=== PATIENT | male | born 1950 | race Caucasian/White ===

== ENCOUNTER 2017-02-27 09:51 | Day surgery (SDC) | payer OTHER ==
[~2017-02-27] VITALS: Ht 167.6 cm; Wt 73.3 kg
[2017-02-27] VITALS (19 sets, daily range): BP systolic 82–105; BP diastolic 37–55; PULSE 62–70; RESP 19–26; Ht 167.6 cm; Wt 73.3 kg
[2017-02-27] MEDS ORDERED: ACET-141 PO (10:51)
[2017-02-27] MEDS ORDERED: MUCO4 NEB (10:53)
[2017-02-27] MEDS ORDERED: APIX2.5T PO (10:54)
[2017-02-27] MEDS ORDERED: OXYC5CAP17 PO (10:55)
[2017-02-27] MEDS ORDERED: PRED5TAB PO (10:55)
[2017-02-27] MEDS ORDERED: NIFE30TA60 PO (10:56)
[2017-02-27] MEDS ORDERED: METO2.5T12 PO (10:57)
[2017-02-27] MEDS ORDERED: MELA5TAB4 PO (10:57)
[2017-02-27] MEDS ORDERED: LINE600T PO (10:58)
[2017-02-27] MEDS ORDERED: LIDO35.415 TP (10:59)
[2017-02-27] MEDS ORDERED: LIDO700A10 TP (11:02)
[2017-02-27] MEDS ORDERED: IPRA3AMP INHALATION (11:04)
[2017-02-27] MEDS ORDERED: morphine 2 MG INJ IV PRN (15:00)
[2017-02-27] MEDS ORDERED: ACETAMINOPHEN 325 MG TAB PO PRN (15:00)
--- NOTE | 2017-02-27 15:01 | OPR ---
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 Anesthesia Type: other Estimated Blood Loss: minimal Transfusion none Specimen SEE below Grafts/Implants none Complications none Procedure Description Procedure performed: VVI Permanent pacemaker placement using a [employer] MRI compatible device Fluoroscopy and supervision Intracardiac electrocardiogram Indication: symptomatic Sick sinus syndrome, Afib with very slow ventricular response with HR as low as < 30 Anesthesia: Per anesthesiologist Healthcare Translator: Roland Rosas MD Procedure in detail: Written informed consent was obtained after risks benefits and alternatives discussed with the patient and family in detail. Risks including but not limited to risk of infection, bleeding complications, anesthesia related complications, ND, CVA, perforation, pneumothorax hemothorax, etc discussed with pt in detail. Patient was brought into into the [employer] and placed in supine position. sedation was given. Left chest area was prepped and draped in regular sterile fashion. Left subclavian venogram was performed that showed patent subclavian vein and a small cephalic vein. AC groove area was anesthetized using 1% lidocaine with epi. A 3 cm incision was made in the AC groove area. Blunt dissection was carried out. Cephalic vein could not be seen. At this time under direct fluoroscopy left subclavian vein was cannulated using a micropuncture needle and venous flow was obtained. Wire was advanced. RV lead was advanced under direct fluoroscopy and placed in the right ventricular low septum . Once a good position was found, threshold was checked which showed excellent threshold. It was screwed into place and threshold were checked again which showed good injury pattern and no diaphragmatic stimulation at 10 V an excellent thresholds. Then the sheath was peeled away. lead was tied down using 0 Ethibond suture. Pocket was irrigated with antibiotic solution. The lead was checked again which showed good thresholds. Then leads were connected into the device. Device was placed into the pocket and sutured using 0 Ethibond suture. Wound was closed with 1 layer of 2.0 Vicryl and 2 layers of 3.0 Vicryl. Steri- Strip was applied and pressure dressing was applied. Patient tolerated procedure well with no complication and was transferred to the recovery room in stable condition. Immediate complication: none Please see physical chart for details regarding pacemaker information and thresholds. Conclusions: Successful implantation of single-chamber permanent pacemaker ROLAND ROSAS MD Feb 27, 2017 15:01
[2017-02-27] MEDS ORDERED: hydrALAzine 20 MG INJ IV PRN (16:00)
[2017-02-27] MEDS ORDERED: EPHEDrine SULFATE 50 MG/5 ML SYG IV PRN (16:00)
[2017-02-27] MEDS ORDERED: FENTAnyl 50 MCG/ML VIAL IV PRN (16:00)
[2017-02-27] MEDS ORDERED: MEPERIDINE 25 MG INJ IV PRN (16:00)
[2017-02-27] MEDS ORDERED: PROCHLORPERAZINE 10 MG INJ IV PRN (16:00)
[2017-02-27] MEDS ORDERED: OXYCODONE/ACETAMINOPHEN (5/325) TAB PO PRN (16:00)
[2017-02-27] MEDS ORDERED: DIPHENHYDRAMINE 50 MG INJ IV PRN (16:00)
[2017-02-27] MEDS ORDERED: ONDANSETRON 4 MG INJ IV PRN (16:00)
[2017-02-27] MEDS ORDERED: LABETALOL HCL 20MG INJ IV PRN (16:00)
--- NOTE | 2017-02-27 16:29 | RADRPT ---
PROCEDURE: XR Chest. CLINICAL INDICATION: Shortness of breath. Central line placement TECHNIQUE: A single portable view of the chest was obtained. COMPARISON: 02/27/2017 from 07:36 a.m. FINDINGS: A right-sided hemodialysis catheter is seen with the tip in the proximal right atrium. The aorta is tortuous and atherosclerotic. The cardiomediastinal silhouette is otherwise enlarged and is stable. Diffuse pulmonary vascular congestion is seen with likely underlying pulmonary edema and is stable . Bilateral pleural effusions are again noted and are unchanged. The soft tissues and osseous struct ures demonstrate benign age related senescent changes. IMPRESSION: 1. Right sided hemodialysis catheter with the tip in the proximal right atrium. 2. Radiographic findings of congestive heart failure again seen which is stable. RPTAT: HPNM Physician Vandana Date Time Electronically viewed and signed by Physician Vandana on 02/27/2017 16:28 /
[2017-02-27] MEDS ORDERED: CEFAZOLIN 1 GM/50 ML (PMX) 50 ML IVPB SCH (22:00)
--- NOTE | 2017-03-01 09:20 | RADRPT ---
Vent Rate: 69 bpm RR Interval: 0 msec TN Interval: 0 msec QRS Duration: 102 msec QT Interval: 432 msec QTC Interval: 462 msec P-R-T [place]: 0 - -13 - -[address] abnormality, possible digitalis effect Abnormal ECG Electronically Signed By: Dick Gaffney [phone]
== END 2017-02-27 16:36 | disposition short-term general hospital (02) ==
LOC: CCL 09:51 → SDS 09:52 → EDSTATUS 13:30 → CCL 16:36
PROVIDERS: ATTEND Internal Medicine Interventional Cardiology
DX: I49.5 Sick sinus syndrome (principal); I48.91 Unspecified atrial fibrillation; Z79.01 Long term (current) use of anticoagulants
CPT/HCPCS: 33207; 71010; 93005; J2250; J2405; J3010; J7040; Q9967

== ENCOUNTER 2017-03-01 13:00 | Inpatient (IN) | payer MEDICARE, BC ==
[~2017-03-01] VITALS: Ht 170.2 cm; Wt 80.2 kg
[2017-03-01] VITALS (47 sets, daily range): BP systolic 77–164; BP diastolic 47–112; PULSE 60–93; RESP 11–28; Ht 170.2 cm; Wt 80.2 kg
[~2017-03-01 13:00] MED LIST: ACET-141 PO; APIX2.5T PO; ETOMIDATE 20 MG INJ ONE; IPRA3AMP INHALATION; LIDO35.415 TP; LIDO700A10 TP; LINE600T PO; MELA5TAB4 PO; METO2.5T12 PO; MUCO4 NEB; NIFE30TA60 PO; OXYC5CAP17 PO; PRED5TAB PO; ROCURONIUM 50 MG INJ ONE
[2017-03-01] MEDS ORDERED: ALBUTEROL/IPRATROPIUM (NEB) 3 ML AMP NEB PRN (13:30)
--- NOTE | 2017-03-01 13:53 | CONS ---
Date/Time of Note Date/Time of Note DATE: 03/01/17 TIME: 13:46 Assessment/Plan Assessment/Plan Additional Assessment/Plan Chest x-ray was reviewed from today which is showing bilateral pleural effusions with possibly bilateral lower lobe pneumonia. Chemistry panel showing hyperkalemia with potassium level of 6. Assessment and recommendations; 1. Patient transferred from [facility] for hypotension with interval improvement. 2. Possibly bilateral pneumonia versus pleural effusions. 3. Chronic renal failure on hemodialysis. 4. Cardiac arrhythmia, status post recent pacemaker placement. 5. Anemia. 6. Mild hyperkalemia. Continue current supportive care. Patient will undergo dialysis shortly. Add cefepime 1 g every 12. Continue Zyvox. Obtain CT of the chest without contrast. Consultation Date/Type/Reason Admit Date/Time Mar 01, 2017 at 13:35 Date of Consultation: Mar 01, 2017 Type of Consultation: Pulmonary/critical care Reason for Consultation Pulmonary consultation requested for evaluation of hypotension. History of presenting illness; patient is a 66-year-old white male who was at [facility] and then developed hypotension which required transfer to ICU at [facility]. By the time I saw the patient in ICU the patient is on 30% Ventimask and is completely awake and alert. Hypotension has improved in the interim with blood pressure readings of 92/68 currently. Patient does complain of mild shortness of breath but denies any abdominal pain , nausea or vomiting. Also denies any fever or chills. Past medical history; 1. Patient with history of renal failure on hemodialysis. 2. History of AV fistula. 3. Anemia. 4. History of bilateral knee replacement. 5. History of ankle surgery. 6. History of recent pacemaker implantation. Medications; reviewed. Allergies; erythromycin. Social history; patient has a long-standing history of smoking. Occupational history noncontributory patient is on disability. Family history; noncontributory. Review of systems; denies any headache, complains of mild shortness of breath. Denies any chest pain or wheezing. Any cough or sputum production. Any abdominal pain, nausea vomiting. Denies any orthopnea. Complains of chronic pain. Has lost weight recently. General exam; elderly male, awake and alert. Currently in no distress. Exam/Review of Systems Exam HEENT exam; supple neck, positive JVD. No lymphadenopathy. Midline trachea. No thyromegaly. Patient has a multiple carious teeth. Pupils are small bilaterally. Pharynx is clear. Chest exam; diminished breath sounds throughout. S1-S2 audible, no murmurs. Irregular rhythm. Pacemaker in left chest wall. Abdomen exam; soft, nontender. No organomegaly. No scars, bowel sounds audible. Extremity exam; no edema. Patient has a multiple scars involving lower extremities. And has multiple ecchymosis involving all 4 extremities. No overt bleeding seen. 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 Medications Medications Current Medications Acetaminophen (Tylenol Tab) 500 mg Q6 PRN PO PAIN AND OR ELEVATED TEMP; Start 03/01/17 at 13:30; Status UNV Acetylcysteine (Mucomyst) 2 ml BID NEB ; Start 03/01/17 at 21:00; Status UNV Albuterol/ Ipratropium (Duoneb) 3 ml Q4 PRN NEB WHEEZING AND SOB; Start at 13:30; Status UNV Lidocaine (Lidocaine 5% Oint) 1 applic BID TOP ; Start 03/01/17 at 21:00; Status UNV Lidocaine (Lidoderm) 1 patch DAILY TD ; Start 03/02/17 at 09:00; Status UNV Linezolid (Zyvox) 600 mg BID PO ; Start 03/01/17 at 21:00; Status UNV Metolazone (Zaroxolyn) 2.5 mg DAILY PO ; Start 03/02/17 at 09:00; Status UNV Oxycodone HCl (Roxicodone) 2.5 mg Q6 PRN PO PAIN; Start 03/01/17 at 13:30; Status UNV Prednisone (Prednisone) 5 mg DAILY PO ; Start 03/02/17 at 09:00; Status UNV PAOLA RUIZ Mar 01, 2017 13:53
[2017-03-01] MEDS ORDERED: CEFEPIME 1GM/50 ML (PMX) 50 ML IVPB SCH (14:00)
[2017-03-01] MEDS ORDERED: VANCOMYCIN IV PER PHARMACY XX SCH ×2 (14:00→14:30)
[2017-03-01] MEDS ORDERED: ALBUMIN HUMAN 25% 100 ML ONE (14:21)
[2017-03-01] MEDS ORDERED: NORepinephrine 8MG/250 ML (PMX 250 ML IV SCH (14:30)
[2017-03-01] MEDS ORDERED: NORepinephrine 8MG/250 ML (PMX 250 ML ONE (14:33)
[2017-03-01] MEDS ORDERED: SENNA/DOCUSATE NA (8.6MG/50MG) TAB PO PRN (15:00)
[2017-03-01] MEDS ORDERED: ALBUMIN HUMAN 25% 100 ML IV ONE (15:00)
[2017-03-01] MEDS ORDERED: BISA-57 PO (15:08)
[2017-03-01] MEDS ORDERED: SENN-59 PO (15:08)
[2017-03-01] MEDS ORDERED: DOXA2TAB61 PO (15:08)
[2017-03-01] MEDS ORDERED: THIA100T56 PO (15:08)
[2017-03-01] MEDS ORDERED: CEFE1PIG IVPB (15:08)
[2017-03-01] MEDS ORDERED: FLUT9.9S NASAL (15:08)
[2017-03-01] MEDS ORDERED: MINE3.5O31 RIGHT EYE (15:08)
[2017-03-01] MEDS ORDERED: CYCL25CA5 PO (15:08)
[2017-03-01] MEDS ORDERED: MIDO5TAB19 PO (15:08)
[2017-03-01] MEDS ORDERED: DEXT15DR4 OP (15:08)
[2017-03-01] MEDS ORDERED: VANCOMYCIN 1.5 GM in SOD CHLORIDE 0.9% 250 ML IVPB SCH (15:30)
[2017-03-01] MEDS: MEROPENEM 500MG/50 ML (PMX) 50 ML IVPB SCH (17:04)
[2017-03-01] MEDS: FLUCONAZOLE 100 MG/NS (PMX) 50 ML IVPB SCH (18:00)
--- NOTE | 2017-03-01 18:48 | CONS ---
DATE OF ADMISSION: 03/01/2017 DATE OF CONSULTATION: 03/01/2017 TYPE OF CONSULTATION: Infectious Disease. REASON FOR CONSULTATION: Antibiotic management. HISTORY OF PRESENT ILLNESS: Thomas Kern is a 66-year-old white male transferred from [facility] where he developed hypotension which required transfer to the ICU. The patient is currently on BiPAP mask. He complains of shortness of breath but denies any abdominal pain, nausea or vomitin g. A chest x-ray showed bilateral pleural effusions with possible bilateral lower lobe pneumonia. Chemistry panel showing hyperkalemia with potassium of 6. Patient transferred from [place], possible bilateral pneumonia versus pleural effusion. He has chronic renal failure on hemodialysis and is r eceiving dialysis right now. Cardiac arrhythmia, status post recent pacemaker placement, anemia and mild hyperkalemia. Continue current supportive care. He is on cefepime and Zyvox. PAST MEDICAL HISTORY: Operations as outlined. PAST SURGICAL HISTORY: He has a history of AV fistula, history of bilateral knee replacement, histo ry of ankle surgery and history of recent pacemaker implantation. FAMILY HISTORY: Noncontributory. SOCIAL HISTORY: He is a longstanding smoker. ALLERGIES: NONE TO PENICILLIN, SULFA OR FOODS. MEDICATIONS: Per chart. REVIEW OF SYSTEMS: Noncontributory. PHYSICAL EXAMINATION: GENERAL: The patient is a well-developed, well-nourished elderly-appearing male who is awake, respo nsive, in no acute distress. VITAL SIGNS: Stable. He is afebrile. SKIN: Without generalized rash. HEENT: Within normal limits. He has a BiPAP in place so it is difficult to evaluate. NECK: Supple. LYMPH NODES: None palpable. CHEST: Decreased breath sounds at the bases. Pacemaker in left chest wall. HEART: Without murmur or gallop. ABDOMEN: Soft, nontender, without organosplenomegaly or masses. EXTREMITIES: Without cyanosis, clubbing, or edema. Multiple scars in the lower extremities. RECTAL AND GENITAL: Deferred. NEUROLOGIC: No focal neurological abnormalities. IMPRESSION AND PLAN: 1. The patient currently is on linezolid or Zyvox and cefepime. We will continue him on this regim en. He is also on fluconazole and now his antibiotics have been changed to vancomycin, meropenem an d fluconazole for broader spectrum coverage. 2. Blood cultures have not been done but he is afebrile at this point. I will dictate my findings to Dr. Kendrick and to the hospitalist. Dictated By: VIC COX MD, JD/BECKIE Conf#: [id number] DID#: [id number]
[2017-03-01] MEDS ORDERED: MIDAZOLAM (DRIP) 50 mg/50 mL 50 ML IV SCH (19:30)
--- NOTE | 2017-03-01 19:34 | QN ---
Documentation Comment Endotracheal Intubation by me: Pre assessment performed. Pre-oxygenation performed with 100% oxygen RSI: Performed w/o complication or hypoxic events. Medications as ordered. Blade: MAC 4 Glidescope ET Tube: 7.5 cm Depth: 22 cm at the lip Intubation confirmed by colorimetric CO2, equal breath sounds, quiet over the stomach. Chest x-ray pending. AMANDA CRUZ MD Mar 01, 2017 19:33
[2017-03-01] MEDS: PROPOFOL 100 ML IV SCH (19:40)
[2017-03-01] MEDS: ACETYLCYSTEINE 20% 4 ML VIAL NEB SCH (20:00)
[2017-03-01] MEDS: DOXAZOSIN 2 MG TAB PO SCH (21:00)
[2017-03-01] MEDS: FLUTICASONE 0.05% 16 GM NAS SPRAY NASAL SCH (21:00)
[2017-03-01] MEDS ORDERED: ZYVOX 600 MG TAB PO SCH (21:00)
[2017-03-01] MEDS ORDERED: APIXABAN 5 MG TABLET PO SCH (21:00)
[2017-03-01] MEDS ORDERED: NON-FORMULARY/PATIENT OWN MED (Melatonin 5 MG) PO SCH (21:00)
[2017-03-01] MEDS: LIDOCAINE 5% 35 GM OINT TOP SCH (21:00)
[2017-03-01] MEDS: CYCLOSPORINE 25 MG CAP PO SCH (21:00)
--- NOTE | 2017-03-01 21:00 | RADRPT ---
AMENDMENT: 03/01/2017 9:26:12 PM Rosita Randall M.D Please note that although the endotracheal tube appears to be 2 cm from the magdiel on chest x-ray, i t is situated at the magdiel on chest CT. Recommend withdrawing the endotracheal tube 3 cm into the c entral trachea and repeating the chest x-ray. This was discussed with the patient's nurse at 09:05 PM. Please see chest CT report. PROCEDURE: Portable chest x-ray. CLINICAL INDICATION: 66-year of age, male. Post intubation. TECHNIQUE: Portable AP view of the chest. COMPARISON: Chest x-ray from earlier the same day at 08:34 a.m. FINDINGS: Endotracheal tube has been placed and tip is 2.2 cm from magdiel. Right internal jugular double lumen hemodialysis catheter is positioned over inferior SVC. Left subc lavian pacemaker with electrode over right ventricle. These lines are unchanged. Atherosclerotic calcification thoracic aorta. Cardiac silhouette is obscured by lung disease. Decreased lung volumes with vascular crowding. Bilateral perihilar infiltrates have improved. There is residual interstitial pulmonary edema with improved air space disease. There is residual consolid ation in left greater than right lower lobes that may represent atelectasis, aspiration or infection . Suspected left pleural effusion. Right costophrenic sulcus is excluded from imaging field limiting e valuation for right pneumothorax and a small right pleural effusion. No acute bony abnormality. IMPRESSION: Endotracheal tube in satisfactory position 2.2 cm from magdiel. Bilateral perihilar infiltrates are improved from chest x-ray performed earlier the same day in keep ing with improving pulmonary edema. There is residual interstitial pulmonary edema with mild residua l air space changes. Bilateral left greater than right lower lobe lung consolidation may represent a telectasis , aspiration or infection. Pleural effusions are likely improved. Suspected residual small left pleural effusion. RPTAT: HCTS Physician Marvin Date Time Electronically viewed and signed by Physician Marvin on 03/01/2017 21:27 /
--- NOTE | 2017-03-01 21:26 | RADRPT ---
PROCEDURE: CT CHEST WITHOUT CONTRAST CLINICAL INDICATION: 66 years of age, male. Pneumonia. COMPARISON: Chest x-ray from earlier the same day TECHNIQUE: CT of the chest was performed without IV contrast. Coronal and sagittal reformatted image s were obtained from the axial source images. Images were reviewed on a high-resolution PACS worksta tion. Dose information: The estimated radiation dose (CTDIvol mGy) for each series in this exam is 16. The estimated cumulative dose (DLP mGy-cm) is 634. One or more of the following dose reduction techniques were used: - Automated exposure control. - Adjustment of the mA and/or kV according to patient size. - Use of iterative reconstruction technique. FINDINGS: In the absence of intravenous contrast, the study constitutes a limited assessment of the solid orga ns and vessels. CHEST: Medical devices: Endotracheal tube is situated at the magdiel and should be withdrawn 2-3 cm. Enteric tube is situated in the distal esophagus. Recommend advancement further into the stomach 10-15 cm. Right internal jugular hemodialysis catheter with tip in inferior SVC. Left subclavian pacemaker wit h electrode over right ventricle. Thyroid: Normal. Lymph nodes: No supraclavicular, axillary, mediastinal, or hilar lymphadenopathy. Vasculature: Atherosclerotic calcification thoracic aorta. Ascending aortic aneurysm measuring 4.4 c m. Dilated main pulmonary artery measuring 3.6 cm in keeping with pulmonary artery hypertension. Heart: Four-chamber cardiomegaly. Four-vessel coronary artery calcification. No pericardial effusion . Other mediastinal structures: Normal noncontrast appearance. Lung parenchyma and pleura: There is dense consolidation in the left greater than right lower lobes also involving the posterior left upper lobe. There is nodularity with centrilobular branching patte rns in the posterior right upper lobe and superior right lower lobe. The appearance is concerning fo r multifocal infection or aspiration. There is likely superimposed aspiration in the lower lobes. Mi ld diffuse ground-glass opacity may be due to residual interstitial pulmonary edema. Negative for se ptal lines. Small left pleural effusion. Negative for right pleural effusion. Negative for pneumotho rax. Airways: Normal noncontrast appearance. Chest wall: Pulse generator left anterior chest wall attached to the pacemaker has likely recently b een placed with adjacent soft tissue gas. Upper abdomen: Mild hepatosplenomegaly. The burns paiute kidneys are severely atrophic with scattered nono bstructing calculi on the left and a sub centimeter cyst on the right. Small volume ascites in the u pper abdomen. Musculoskeletal: Multilevel advanced spondylosis in the thoracolumbar spine with a curvature of the lower thoracic spine and upper lumbar spine convex right and left spondylolisthesis at T11-12. There is grade 1 anterolisthesis at C7-T1 due to advanced degenerative disc disease and facet joint arthr itis. There is grade 1 anterolisthesis at T7-8 with advanced disc disease. There is a subacute fract ure of the manubrium. There are subacute fractures of bilateral ribs including the posterior right f irst rib, the lateral and anterior right second rib, and the anterior right third rib as well as the posterior left first rib and anterior left second and third ribs.. 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 IMPRESSION: 1. Endotracheal tube is situated at the magdiel. Recommend withdrawing the tube 3 cm into the trache a. 2. Enteric tube is situated in the inferior esophagus. Recommend advancement 10-15 cm into the stoma ch. 3. Bilateral left greater than right lung consolidation in bilateral lower lobes and posterior left upper lobe with patchy nodular opacity in the posterior right upper lung zone is in keeping with mul tifocal infection as suspected clinically. Aspiration could appear similar. 4. Cardiomegaly. Ascending aortic aneurysm measuring 4.4 cm. Enlarged main pulmonary artery in keepi ng with pulmonary hypertension. 5. Small left pleural effusion and small-volume ascites in the upper abdomen. 6. Atrophic burns paiute kidneys in keeping with burns paiute end stage renal disease. 7. Advanced disc disease and facet joint arthritis in the spine with multilevel spondylolisthesis an d a scoliosis as described. There are subacute fractures of the manubrium and bilateral ribs. 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 Findings with regards to endotracheal tube and enteric tube were discussed with Benigno Malhotra RN by Dr. Rosita Randall on March 01, 2017 at 09:05 p.m. He will notify the patient's provider. RPTAT: HCTS Clifton Randall Physician Date Time Electronically viewed and signed by Clifton Randall Physician on 03/01/2017 21:25 CS/
--- NOTE | 2017-03-01 22:58 | RADRPT ---
PROCEDURE: Portable chest x-ray. CLINICAL INDICATION: Endotracheal tube repositioning. TECHNIQUE: Portable AP view of the chest. COMPARISON: 05/18/2009. FINDINGS: An endotracheal tube terminates 2.7 cm above the magdiel. A nasogastric tube terminates in the stomac h. A right central venous catheter terminates in the SVC. There are low lung volumes. Prominent inte rstitial lung markings are noted. The cardiac silhouette is enlarged. There is a left chest cardiac pacemaker. There may be small bilateral pleural effusions.. There is no pneumothorax. IMPRESSION: 1. Endotracheal tube tip 2.7 cm above the magdiel. 2. Nasogastric tube tip in the stomach. 3. Right central venous catheter tip in the SVC. 4. Mild interstitial lung markings, possibly representing interstitial edema, a viral chest infecti on, and/or compressive changes related to low lung volumes. 5. Enlarged cardiac silhouette and a cardiac pacemaker. 6. Possible small bilateral pleural effusions. RPTAT: HTAR .Rudolph Clinton MD, Date Time Electronically viewed and signed by .Rudolph Clinton MD, on 03/01/2017 22:57 .R/
[2017-03-02] VITALS (99 sets, daily range): BP systolic 78–130; BP diastolic 52–80; PULSE 60–160; RESP 7–64
[2017-03-02] MEDS: PROPOFOL 100 ML IV SCH ×4 (00:11→18:40)
[2017-03-02] MEDS: MEROPENEM 500MG/50 ML (PMX) 50 ML IVPB SCH ×3 (01:27→20:48)
--- NOTE | 2017-03-02 08:22 | RADRPT ---
PROCEDURE: XR Chest. CLINICAL INDICATION: Respiratory failure. Congestive heart failure. TECHNIQUE: Single frontal view of the chest. COMPARISON: 03/01/2017 and additional priors FINDINGS: Endotracheal tube tip well positioned over the mid tracheal shadow. Enteric tube tip passes below th e diaphragm and below the field of view. Right internal dialysis catheter with the tip over the dis vivi superior vena cava. Left-sided single lead pacemaker. Stable enlarged cardiomediastinal silhoue tte. Interval worsening of diffuse bilateral air space opacities. Small bilateral pleural effusions. No evidence of pneumothorax. Chronic deformity with degenerative changes of the shoulders. IMPRESSION: 1. Stable position of line and tubes. 2. Interval worsening of diffuse bilateral air space opacities representing pulmonary edema or infec tion. 3. Bilateral small pleural effusions. RPTAT:AAJJ Physician Mary Date Time Electronically viewed and signed by Physician Mary on 03/02/2017 08:22 /
[2017-03-02] MEDS ORDERED: DEXTROSE 50% 50 ML SYRINGE ONE (08:25)
[2017-03-02] MEDS: ACETYLCYSTEINE 20% 4 ML VIAL NEB SCH ×2 (08:29→19:44)
[2017-03-02] MEDS ORDERED: NIFEdipine (XL) 30 MG TAB PO SCH (09:00)
[2017-03-02] MEDS ORDERED: CEFEPIME 1 GM/50 ML SCH (09:00)
[2017-03-02] MEDS: THIAMINE 100 MG TAB PO SCH (09:04)
[2017-03-02] MEDS: METOLAZONE 2.5 MG TAB PO SCH (09:04)
[2017-03-02] MEDS: MIDODRINE 5 MG TAB PO SCH (09:04)
[2017-03-02] MEDS: LIDOCAINE 5% 35 GM OINT TOP SCH ×2 (09:05→20:49)
[2017-03-02] MEDS: FLUTICASONE 0.05% 16 GM NAS SPRAY NASAL SCH ×2 (09:05→20:48)
[2017-03-02] MEDS: predniSONE 5 MG TAB PO SCH (09:05)
[2017-03-02] MEDS: OCULAR LUBRICANT 3.5 GM OPH OINT RIGHT EYE PRN ×2 (09:05→20:49)
[2017-03-02] MEDS: CYCLOSPORINE 25 MG CAP PO SCH ×2 (09:06→20:49)
[2017-03-02] MEDS: LIDOCAINE 5% PATCH TD SCH (09:07)
--- NOTE | 2017-03-02 11:28 | CONS ---
Date/Time of Note Date/Time of Note DATE: 03/02/17 TIME: 11:22 Consult Date/Type/Reason Admit Date/Time Mar 01, 2017 at 13:35 Initial Consult Date 03/01/17 Type of Consultation: Pulmonary/critical care Subjective No significant changes. Patient remains somnolent on mechanical ventilation. Continues vasopressor support. Objective Vital Signs Date Time Temp Pulse Resp B/P Pulse Ox O2 Delivery O2 Flow Rate FiO2 03/02/17 09:10 65 20 100 40 03/02/17 07:45 100.1 96/53 03/01/17 20:00 Mechanical Ventilator Intake and Output 03/01/17 03/01/17 03/02/17 15:00 23:00 07:00 Intake Total 18.75 ml 806.25 ml 229.25 ml Output Total 2300 ml 45 ml Balance 18.75 ml -1493.75 ml 184.25 ml Exam PHYSICAL EXAMINATION GENERAL: Elderly gentleman, intubated on mechanical ventilation, opens eyes and appears somewhat agitated. Orally intubated. VITAL SIGNS: see below. HEENT: Pupils equal, round, and reactive to light. CARDIAC: S1, S2, no added sounds or murmurs. CHEST: Diminished air entry bilaterally. ABDOMEN: Mildly distended. Bowel sounds present no guarding or rebound EXTREMITIES: No cyanosis, clubbing edema +1 NEUROLOGIC: Generalized weakness Results/Medications Result Diagram: 03/02/17 0425 03/02/17 0425 Results 24 hrs Laboratory Tests Test 03/01/17 13:51 03/01/17 14:30 03/01/17 20:30 03/01/17 22:30 Blood Gas Specimen Source Blood arterial Blood arterial Blood arterial Arterial Blood Date Drawn 03/01/2017 1:40:35 PM 03/01/2017 6:30:18 PM 03/01/2017 10:00:00 PM Arterial Blood pH (Temp corrected) 7.163 *L 7.153 *L 7.424 Arterial Blood pCO2 (Temp correct) 74.6 H 93.9 *H 42.2 Arterial Blood pO2 (Temp corrected) 63.9 L 92.3 354.2 H Arterial Blood HCO3 26.2 H 32.2 H 27.0 H Arterial Blood Base Excess -3.6 L 1.0 2.3 Arterial Blood Oxygen Saturation 89.8 L 96.1 99.7 H Sly Test ACCEPTAB ACCEPTAB ACCEPTAB Arterial Blood Gas Puncture Site Left Radial Right Radial Right Radial Arterial Blood Carboxyhemoglobin 1.1 1.0 0 Arterial Blood Methemoglobin 0.2 0.3 0.2 Blood Gas A-a O2 Differential 98.9 H 84.9 H 316.6 H Oxyhemoglobin Percent 88.6 L 94.9 99.5 H Total Hemoglobin 11.5 L 12.0 10.8 L Blood Gas Temperature 37.0 37.0 37.0 Blood Gas Modality MASK - VENTI MASK - BIPAP VENT - AC FiO2 35.0 40.0 100.0 Blood Gas Critical Value Read Back Milind MARCH RN SHAMIKA ALLEN Blood Gas Notified Whom MAHAMED STEPHENS MA Blood Gas Notified Time 03/01/2017 1:57:11 PM 03/01/2017 10:28:25 PM 03/01/2017 10:25:33 PM Blood Gas Respiration Rate 18.0 20.0 Blood Gas Actual Respiration Rate 28 20 Blood Gas Pressure Support 7 Blood Gas IPAP/EPAP Ratio 05/01 Blood Gas Tidal Volume 500.0 Blood Gas Low PEEP Setting 5.0 Urine Color BRONSON Urine Clarity CLOUDY A Urine pH 5.0 Urine Specific [place] 1.018 Urine Ketones NEGATIVE Urine Nitrite NEGATIVE Urine Bilirubin NEGATIVE Urine Urobilinogen NEGATIVE Urine Leukocyte Esterase 3+ H Urine Microscopic RBC 25 H Urine Microscopic WBC > 182 H Urine Amorphous Crystals FEW A Urine Bacteria FEW A Urine Hemoglobin 2+ H Urine Random Creatinine 65.43 Urine Random Sodium 89 Urine Glucose NEGATIVE Urine Total Protein Test 03/02/17 04:25 03/02/17 08:27 White Blood Count 10.2 # Red Blood Count 3.32 L Hemoglobin 9.3 L Hematocrit 31.5 L Mean Corpuscular Volume 94.9 Mean Corpuscular Hemoglobin 28.0 L Mean Corpuscular Hemoglobin Concent 29.5 L Red Cell Distribution Width 16.9 H Platelet Count 105 L Mean Platelet Volume 11.0 H Neutrophils % 70.2 Lymphocytes % 15.3 Monocytes % 13.1 H Eosinophils % 0.4 Basophils % 0.2 Nucleated Red Blood Cells % 0.3 H Neutrophils # 7.2 Lymphocytes # 1.6 Monocytes # 1.3 H Eosinophils # 0.0 Basophils # 0.0 Nucleated Red Blood Cells # 0.0 Sodium Level 135 Potassium Level 3.9 # Chloride Level 98 Carbon Dioxide Level 28 Anion Gap 13 Blood Urea Nitrogen 44 #H Creatinine 2.13 #H Glucose Level 63 #L Calcium Level 8.4 Phosphorus Level 3.7 # Magnesium Level 1.9 Total Bilirubin 0.1 L Direct Bilirubin 0.00 Indirect Bilirubin 0.1 Aspartate Amino Transf (AST/SGOT) 46 Alanine Aminotransferase (ALT/SGPT) 24 Alkaline Phosphatase 235 H Total Protein 6.7 Albumin 3.2 L Bedside Glucose 165 Medications Current Medications Acetaminophen (Tylenol Tab) 500 mg Q6H PRN PO PAIN AND OR ELEVATED TEMP; Start 03/01/17 at 13:30 Lidocaine (Lidocaine 5% Oint) 1 applic BID TOP Last administered on 03/02/17 09:05; Admin Dose 1 APPLIC; Start 03/01/17 at 21:00 Lidocaine (Lidoderm) 1 patch DAILY TD Last administered on 03/02/17 09:07; Admin Dose 1 PATCH; Start 03/02/17 at 09:00 Metolazone (Zaroxolyn) 2.5 mg DAILY PO Last administered on 03/02/17 09:04; Admin Dose 2.5 MG; Start 03/02/17 at 09:00 Oxycodone HCl (Roxicodone) 2.5 mg Q6H PRN PO PAIN; Start 03/01/17 at 13:30 Prednisone 5 mg 5 mg DAILY PO Last administered on 03/02/17 09:05; Admin Dose 5 MG; Start 03/02/17 at 09:00 Meropenem/Sodium Chloride 50 ml @ 100 mls/hr Q12 IVPB Last administered on 09:05; Admin Dose 100 MLS/HR; Start 03/01/17 at 15:30 Fluconazole/ Sodium Chloride (Diflucan 100 Mg/ NS (Pmx)) 50 ml @ 50 mls/hr Q24H IVPB Last administered on 03/01/17 18:00; Admin Dose 50 MLS/HR; Start at 16:30 Vancomycin HCl (Vanco Iv Per Pharmacy) PER PHARMACY DOSING NOTE XX ; Start 03/01 at 14:30 Eye Lubricant (Akwa Oint) 1 applic DAILY PRN RIGHT EYE ITCHING Last administered on 03/02/17 09:05; Admin Dose 1 APPLIC; Start 03/01/17 at 15:00 Bisacodyl (Dulcolax) 5 mg DAILY PRN PO CONSTIPATION; Start 03/01/17 at 15:00 Cyclosporine (Sandimmune) 25 mg BID PO Last administered on 03/02/17 09:06; Admin Dose 25 MG; Start 03/01/17 at 21:00 Doxazosin Mesylate (Cardura) 2 mg QHS PO ; Start 03/01/17 at 21:00 Fluticasone Propionate (Flonase 0.05% Nasal) 1 spray BID NASAL Last administered on 03/02/17 09:05; Admin Dose 1 SPRAY; Start 03/01/17 at 21:00 Midodrine (Proamatine) 2.5 mg DAILY PO Last administered on 03/02/17 09:04; Admin Dose 2.5 MG; Start 03/02/17 at 09:00 Nifedipine (Procardia Xl) 30 mg DAILY PO Last administered on 03/02/17 09:59; Admin Dose 30 MG; Start 03/02/17 at 09:00 Senna/Docusate Sodium (Senokot-S) 1 tab QHS PRN PO CONSTIPATION; Start at 15:00 Thiamine HCl (Vitamin B1) 100 mg DAILY PO Last administered on 03/02/17 09:04 ; Admin Dose 100 MG; Start 03/02/17 at 09:00 Eye Lubricant 1 drop 1 drop Q4H PRN BOTH EYES ITCHING EYES; Start 03/01/17 at 15:30 Norepinephrine 16 mg/Dextrose 500 ml @ 0 mls/hr TITRATE IV Last administered on 03/01/17 22:15; Admin Dose 3.75 MLS/HR; Start 03/01/17 at 17:30 Propofol 100 ml @ 2.406 mls/ hr Q12H IV Last administered on 03/02/17 06:28; Admin Dose 14.436 MLS/HR; Start 03/01/17 at 19:30 Midazolam HCl (Versed) 50 ml @ 1 mls/hr TITRATE IV ; Start 03/01/17 at 19:30 Miscellaneous Information (*Rx Drug Level Order Reminder*) RANDOM VANCOMYCIN LEVEL... ONCE ONCE XX ; Start 03/03/17 at 05:00; Stop 03/03/17 at 05:01 Assessment/Plan Chief Complaint/Hosp Course Assessment 1. Aspiration pneumonia with hypoxemic respiratory failure 2. Septic shock secondary to above 3. Recent pacemaker placement 4. End-stage renal failure on hemodialysis 5. History of renal transplant Plan 1. Continue mechanical ventilation 2. Broad spectrum antibiotic coverage 3. Decrease FiO2 as tolerated 4. Hemodialysis as tolerated 5. Consider starting tube feeding Critical care time 40 minutes. Prognosis guarded. Problems: LIT COTA MD, [facility] Mar 02, 2017 11:28
--- NOTE | 2017-03-02 12:38 | HP ---
DATE OF ADMISSION: 03/01/2017 CHIEF COMPLAINT: Respiratory failure, shock. HISTORY OF PRESENT ILLNESS: This is a 66-year-old male with a long, complicated past medical histor y. 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 The patient's kidney function initially had improvement where he was able to be taken off dialysis. The patient, however, years later went back on dialysis. In 1985. The patient underwent cadaveric renal transplant that was complicated with 1 episode of rejec tion that resolved with ____. The patient in 2016, early, had a knee replacement surgery [facility] which was complicated by seroma and another surgery of that knee. The patient was treated for pn eumonia. He was then admitted to [facility] in 11/2016. At that time, the patient had con cerns of possible renal artery stenosis. The patient unfortunately underwent a cardiac arrest after being given Dilaudid. He had PA at the time, a code blue was called. He received 4 rounds of comp ression, epinephrine and 3 amps of bicarbonate. The patient was then intubated, admitted to intensi ve care unit and extubated ____. He was then transferred to [facility]. Neil dawkins note, during his hospital stay, while in the intensive care unit, the patient was on continuous re nal replacement therapy. While at [place] [place], the patient has been receiving respiratory care by Pulmon ology, has been seen by cardiology. During the course in [facility] [place], the patient was on intermittent he modialysis due to episodes of hyperkalemia. The patient also noted to have arrhythmia and had a rec ent pacemaker placement by Dr. Rosas. The patient yesterday was noted to be in more serious respir atory distress, hyperkalemic, hypotensive and was transferred to the intensive care unit for continu ed care. While in intensive care unit, the patient had hemodialysis. Unfortunately, he required in tubation and was placed on pressor support. Overnight, no other acute events noted. No hemoptysis, hematemesis or hematochezia. PAST MEDICAL HISTORY: As stated above, history of hypertension, arthritis, history of CHF, gout, as thma, history of hepatitis C, history of atrial fibrillation. PAST SURGICAL HISTORY: Status post cadaveric renal transplant, status post Perm-A-Cath placement, s tatus post pacemaker, status post knee replacement surgery. SOCIAL HISTORY: Does not drink, smoke or do drugs. FAMILY HISTORY: Noncontributory. ALLERGIES: THE PATIENT IS ALLERGIC TO ERYTHROMYCIN. MEDICATIONS: The patient's medications have been reviewed and reconciled. REVIEW OF SYSTEMS: A 14-point review of systems was conducted. Pertinent positives as obtained by reviewing medical records stated in HPI. PHYSICAL EXAMINATION: VITAL SIGNS: Blood pressure is currently 96/53, respirations 20, pulse 61, temperature 100.1. HEENT: Head is normocephalic, neck supple. CARDIOVASCULAR: Heart is regular rate, lungs show diminished breath sounds at the base. ABDOMEN: Soft, nontender to palpation without rebound or guarding. EXTREMITIES: Negative for clubbing, cyanosis. No trace edema. DERMATOLOGIC: No rashes. MUSCULOSKELETAL: No joint effusions. NEUROLOGIC: Limited exam as the patient is obtunded. LABORATORY DATA: Shows a white count 10.2, hemoglobin 9.3, hematocrit 31.5, platelet count is 105. Sodium 135, potassium 3.9, chloride 98, BUN 44, creatinine 2.13, calcium 8.4, magnesium 1.9. The p atient's urinalysis shows greater than 182 WBCs, RBCs are 25. IMAGING STUDIES: CT scan of the chest shows bilateral consolidation of the right lung with patchy o pacities and possible multifocal infection, aspiration, small pleural effusion, atrophic kidneys, ad vanced disk disease of the spine with spondylolisthesis, subacute fractures of the manubrium and viral ateral rib. ASSESSMENT AND PLAN: This is a 66-year-old male who presents with: 1. Ventilator-dependent respiratory failure. Etiology is likely secondary to multifocal pneumonia and congestive heart failure. The patient's CT scan was reviewed. The patient was intubated yester day due to persistent hypoxemia. Plan at this point is to continue current treatment plan. Follow up with pulmonary. Continue to treat underlying pneumonia. Continue ultrafiltration with hemodialy sis. 2. Septic shock secondary to pneumonia. The patient is currently on pressor support and IV antibio tics will continue. Follow up cultures. Follow up with Infectious disease. 3. 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 The patient is currently d ialysis dependent. He will receive intermittent hemodialysis as necessary. Will continue to monito r for any signs of recovery. 4. 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 The patient is currently in acute kidney injury as stated above, will continue current treatment plan as stated above. Mckenna malka current immunosuppressive regimen. 5. History of arrhythmia, status post pacemaker placement. Follow up with cardiology. 6. Anemia. Monitor H and H levels. 7. Mineral bone disorder. Monitor calcium and phosphorus levels. 8. Acute encephalopathy toxic metabolic. Continue to monitor. 9. Gastrointestinal and deep venous thrombosis prophylaxis. 10. History of hepatitis C. 11. Severe debility. 12. History of osteoarthritis. 13. History of gout. Please note I spent over 30 minutes of critical care time with this patient. Dictated By: PATRIA CHANEY/BECKIE Conf#: [id number] DID#: [id number]
--- NOTE | 2017-03-02 16:26 | PN ---
DATE: 03/02/2017 INFECTIOUS DISEASE PROGRESS NOTE SUBJECTIVE: The patient was intubated on Levophed drip, sedated and in no distress. WBC this morni ng 100.1, pulse 65, respirations 20, blood pressure 96/63, saturation 100 on 40 FIO2. VITAL SIGNS: WBC 10.2, H and H 9.3 and 31.5, platelets 105, neutrophils 70.2. INDWELLINGS: The patient had right femoral triple lumen catheter placed yesterday. He has right ch est PermCath, endotracheal tube and NG tube. ANTIMICROBIALS: 1. Vancomycin. 2. Meropenem. 3. Fluconazole. DIAGNOSTICS: CT of the chest yesterday revealed bilateral left greater than the right lung consolid ation in bilateral lower lobes and posterior left upper lobe with patchy nodular opacity in the post erior right upper lung zone in keeping with multifocal infection as well as aspiration could have a similar appearance. Advanced disk disease and facet joint arthritis in the spine with multilevel sp ondylolisthesis and scoliosis as described. There are subacute fractures of the manubrium and bilat eral . 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 PHYSICAL EXAMINATION: GENERAL: This is a chronically ill-appearing, obese, well-developed elderly man who is intubated an d sedated, in no distress. HEENT: Head atraumatic, normocephalic. Sclerae anicteric. Buccal mucosa dry. NECK: Supple. CHEST: Rise symmetrical. Breath sounds diminished to bases. HEART: S1, S2. ABDOMEN: Soft. Bowel tones hypoactive. EXTREMITIES: With trace bilaterally lower extremity edema. ASSESSMENT: 1. Septic shock. 2. Acute on chronic respiratory failure, status post intubated. 3. Pneumonia, possibly aspiration type. 4. Sick sinus syndrome, status post permanent pacemaker 3 days ago. 5. Vancomycin-resistant enterococcus stool colonization. 6. Chronic kidney disease. 7. History of kidney transplant secondary to glomerulonephritis. PLAN: The patient remains hemodynamically unstable, covered with appropriate antimicrobials. His r ecent blood cultures on 02/26/2017 have been negative. Urine culture and sputum cultures since yest erd are growing Aurora albicans. He is on fluconazole. Dictated By: MYLA CHIU WEATHERSTRIP MACHINE OPERATOR for VIC ARMAS/BECKIE Conf#: [id number] [facility]#: [id number]
[2017-03-02] MEDS: FLUCONAZOLE 100 MG/NS (PMX) 50 ML IVPB SCH (18:32)
[2017-03-02] MEDS ORDERED: LIDOCAINE 1% (MPF) 5 ML VIAL SC ONE (19:30)
[2017-03-02] MEDS: DOXAZOSIN 2 MG TAB PO SCH (20:49)
[2017-03-03] VITALS (83 sets, daily range): BP systolic 70–134; BP diastolic 46–110; PULSE 60–75; RESP 0–47
[2017-03-03] MEDS: PROPOFOL 100 ML IV SCH ×4 (01:19→22:43)
--- NOTE | 2017-03-03 07:42 | CONS ---
DATE OF ADMISSION: 03/01/2017 DATE OF CONSULTATION: 03/02/2017 REFERRING PHYSICIAN: Aneesh Xie DO REASON FOR CONSULTATION: Hypotension shock, sick sinus syndrome, status post permanent pacemaker. HISTORY OF PRESENT ILLNESS: Thank you for this referral. The history was obtained from extensive r eview of the chart, review of the old chart, discussion with multiple physicians and staff. The marietta sabillon is also known to have had 2 recent admissions to the hospital ____ old charts ____ . This is a n unfortunate 66-year-old gentleman with a complicated medical history including a renal transplant, history of atrial fibrillation with a slow ventricular response, status post a permanent pacemaker a few days ago, who has had increasing worsening shortness of breath and secretions over the past co uple of days. He also became more hypotensive. Renal failure has been getting worse and more fluid overload. The patient was finally transferred from [place] to our facility at [facility]. Respiratory failure has become worse and now had to be intubated and currently intu bated on the ventilator. Currently, the patient is hypotensive on the ventilator and on the Levophe d. PAST MEDICAL HISTORY: History of sick sinus syndrome with marked bradycardia and atrial fibrillatio n with a slow ventricular ____, status post [place] permanent pacemaker in February of 2017, history of hypertension, history of renal failure, status post renal transplant, history of respiratory momo lure. SURGICAL HISTORY: Status post permanent pacemaker placed this week, status post renal transplant, P erm-A-Cath placement, knee replacement. SOCIAL HISTORY: The patient with no acute tobacco, alcohol or drug abuse. FAMILY HISTORY: No reported coronary artery disease. ALLERGIES: ERYTHROMYCIN. MEDICATIONS: As per medical reconciliation sheet, which was personally reviewed. PHYSICAL EXAMINATION: VITAL SIGNS: Temperature 98.2, T-max is 100.1, heart rate of 63, blood pressure 120/67, respiratory rate of 20, saturating 100% on the ventilator. HEENT: Normocephalic, atraumatic. Status post intubation on the ventilator. Oropharynx positive s ecretions. CARDIOVASCULAR: Regular rate and rhythm, systolic murmur. PULMONARY: Diffuse rhonchi. GASTROINTESTINAL: Soft, nontender. EXTREMITIES: Diffuse lower extremity edema. NEUROLOGIC: Sedated. PSYCHIATRIC: Appears to be calm. DERMATOLOGIC: There are multiple ecchymoses throughout the body. LABORATORY: ABG done yesterday initially showed pH of 7.163, pCO2 ____. Chest CT done yesterday, a gain shows bilateral left greater than right lung consolidation in bilateral lower lobes and posteri or left upper lobe with patchy nodular opacities in posterior right upper zone. Other laboratory sh owed WBC of 10.____, hemoglobin 9.____, platelets of 105. Review of the old chart showed the patien t has had an echocardiogram on 02/09/2017, which was personally reviewed. At that time, ejection fr action was about 55% with mild MR. ASSESSMENT AND PLAN: 1. Acute on-chronic hypoxemic, hypercapnic respiratory failure, status post intubation, now on the ventilator. 2. Sick sinus syndrome, status post permanent pacemaker. 3. Atrial fibrillation with a slow ventricular response, heart rate under control with the pacemake r. 4. Septic shock. 5. Pneumonia. 6. Anemia. 7. History of hepatitis C. 8. History of renal transplant. 9. Renal failure, status post hemodialysis. RECOMMENDATIONS: I will continue with the Levophed drip for now to control the blood pressure. Ant ibiotic is being managed as per Infectious Disease recommendations. I will obviously discontinue th e Procardia. Eliquis is currently on hold due to concern about severe anemia. If H and H remain st able, we will consider resuming it again. Antirejection medications as per Renal. Dialysis as per Renal. Ventilator support, respiratory care will be continued. Continue with the ICU care. More than 40 minutes of critical care time was spent in management of this patient excluding any pro cedures. Dictated By: ROLAND LOMELI/BECKIE Conf#: [id number] DID#: [id number]
[2017-03-03] MEDS: ACETYLCYSTEINE 20% 4 ML VIAL NEB SCH ×2 (07:55→19:43)
[2017-03-03] MEDS: MEROPENEM 500MG/50 ML (PMX) 50 ML IVPB SCH ×2 (08:59→21:23)
[2017-03-03] MEDS: THIAMINE 100 MG TAB PO SCH (09:02)
[2017-03-03] MEDS: FLUTICASONE 0.05% 16 GM NAS SPRAY NASAL SCH ×2 (09:02→21:21)
[2017-03-03] MEDS: CYCLOSPORINE 25 MG CAP PO SCH ×2 (09:02→21:19)
[2017-03-03] MEDS: METOLAZONE 2.5 MG TAB PO SCH (09:03)
[2017-03-03] MEDS: MIDODRINE 5 MG TAB PO SCH (09:03)
[2017-03-03] MEDS: predniSONE 5 MG TAB PO SCH (09:05)
--- NOTE | 2017-03-03 09:18 | PN ---
Date/Time of Note Date/Time of Note DATE: 03/03/17 TIME: 09:14 Assessment/Plan VTE Prophylaxis VTE Prophylaxis Intervention: other Lines/Catheters IV Catheter Type (from [facility]): [facility] Urinary Cath still in place: No (HD pt, aneuric) Assessment/Plan Chief Complaint/Hosp Course HISTORY OF PRESENT ILLNESS: This is a 66-year-old male with a long, complicated past medical history. 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 The patient's kidney function initially had improvement where he was able to be taken off dialysis. The patient, however, years later went back on dialysis. In 1985. The patient underwent cadaveric renal transplant that was complicated with 1 episode of rejection that resolved with steroids. The patient in 2016, early, had a knee replacement surgery [facility] which was complicated by seroma and another surgery of that knee. The patient was treated for pneumonia. He was then admitted to [facility] in 11/2016. At that time, the patient had concerns of possible renal artery stenosis. The patient unfortunately underwent a cardiac arrest after being given Dilaudid. He had PA at the time, a code blue was called. He received 4 rounds of compression, epinephrine and 3 amps of bicarbonate. The patient was then intubated, admitted to intensive care unit and extubated few days later. He was then transferred to [facility]. Please note, during his hospital stay, while in the intensive care unit, the patient was on continuous renal replacement therapy. While at [place], the patient has been receiving respiratory care by Pulmonology, has been seen by cardiology. During the course in [place], the patient was on intermittent hemodialysis due to episodes of hyperkalemia. The patient also noted to have arrhythmia and had a recent pacemaker placement by Dr. Rosas. The patient was noted to be in more serious respiratory distress, hyperkalemic, hypotensive and was transferred to the intensive care unit for continued care. While in intensive care unit, the patient had hemodialysis. Unfortunately, he required intubation and was placed on pressor support. Overnight, no other acute events noted. No hemoptysis, hematemesis or hematochezia. MEDICATIONS: The patient's medications have been reviewed and reconciled. REVIEW OF SYSTEMS: A 14-point review of systems was conducted. Pertinent positives as obtained by reviewing medical records stated in HPI. PHYSICAL EXAMINATION: HEENT: Head is normocephalic, neck supple. CARDIOVASCULAR: Heart is regular rate, lungs show diminished breath sounds at the base. ABDOMEN: Soft, nontender to palpation without rebound or guarding. EXTREMITIES: Negative for clubbing, cyanosis. No trace edema. DERMATOLOGIC: No rashes. MUSCULOSKELETAL: No joint effusions. NEUROLOGIC: Limited exam as the patient is obtunded. time of prison: 41 min ASSESSMENT AND PLAN: This is a 66-year-old male who presents with: 1. acute Ventilator-dependent respiratory failure. Etiology is likely secondary to multifocal pneumonia and congestive heart failure. The patient's CT scan was reviewed. The patient was intubated yesterday due to persistent hypoxemia. Plan at this point is to continue to treat underlying pneumonia. Continue ultrafiltration with hemodialysis. 2. Septic shock secondary to pneumonia. The patient is currently on pressor support and IV antibiotics will continue. Follow up cultures. Follow up with Infectious disease. 3. 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 The patient is currently dialysis dependent. He will receive intermittent hemodialysis as necessary. Will continue to monitor for any signs of recovery. 4. 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 The patient is currently in acute kidney injury as stated above, will continue current treatment plan as stated above. Continue current immunosuppressive regimen. 5. History of arrhythmia, status post pacemaker placement. Follow up with cardiology. 6. Anemia. Monitor H and H levels. 7. Mineral bone disorder. Monitor calcium and phosphorus levels. 8. Acute encephalopathy toxic metabolic. Continue to monitor. 9. Gastrointestinal and deep venous thrombosis prophylaxis. 10. History of hepatitis C. 11. Severe debility. 12. History of osteoarthritis. 13. History of gout. Problems: Exam/Review of Systems Vital Signs Vitals Vital Signs Date Time Temp Pulse Resp B/P Pulse Ox O2 Delivery O2 Flow Rate FiO2 03/03/17 08:45 63 117/67 100 03/03/17 08:00 99.1 03/03/17 07:58 20 40 03/03/17 05:00 Mechanical Ventilator Intake and Output 03/02/17 03/02/17 03/03/17 15:00 23:00 07:00 Intake Total 294.488 ml 775.344 ml 190.765 ml Output Total 0 ml 5500 ml 0 ml Balance 294.488 ml -4724.656 ml 190.765 ml Results Result Diagram: 03/03/17 0425 03/03/17 0425 Results 24 hrs Laboratory Tests Test 03/03/17 04:25 03/03/17 07:00 White Blood Count 10.1 Red Blood Count 3.59 L Hemoglobin 10.1 L Hematocrit 33.3 L Mean Corpuscular Volume 92.8 Mean Corpuscular Hemoglobin 28.1 L Mean Corpuscular Hemoglobin Concent 30.3 L Red Cell Distribution Width 17.0 H Platelet Count 121 L Mean Platelet Volume 10.2 Neutrophils % 66.6 Lymphocytes % 14.7 L Monocytes % 16.1 H Eosinophils % 1.5 Basophils % 0.5 Nucleated Red Blood Cells % 0.0 Neutrophils # 6.7 Lymphocytes # 1.5 Monocytes # 1.6 H Eosinophils # 0.2 Basophils # 0.1 Nucleated Red Blood Cells # 0.0 Sodium Level 139 Potassium Level 3.5 Chloride Level 101 Carbon Dioxide Level 27 Anion Gap 15 Blood Urea Nitrogen 30 #H Creatinine 1.87 H Glucose Level 79 Calcium Level 8.2 L Phosphorus Level 3.0 Magnesium Level 1.9 Random Vancomycin Level 5.4 Blood Gas Specimen Source Blood arterial Arterial Blood Date Drawn 03/03/2017 8:40:38 AM Arterial Blood pH (Temp corrected) 7.498 H Arterial Blood pCO2 (Temp correct) 32.7 L Arterial Blood pO2 (Temp corrected) 103.7 H Arterial Blood HCO3 24.8 Arterial Blood Base Excess 2.0 Arterial Blood Oxygen Saturation 98.0 Sly Test ACCEPTAB Arterial Blood Gas Puncture Site Right Radial Arterial Blood Carboxyhemoglobin 0.2 Arterial Blood Methemoglobin 0.2 Blood Gas A-a O2 Differential 143.9 H Oxyhemoglobin Percent 97.6 Total Hemoglobin 11.8 L Blood Gas Temperature 37.0 Blood Gas Respiration Rate 20.0 Blood Gas Actual Respiration Rate 20 Blood Gas Modality VENT - AC FiO2 40.0 Blood Gas Tidal Volume 500.0 Blood Gas Low PEEP Setting 5.0 Blood Gas Notified Whom DT Blood Gas Notified Time 03/03/2017 8:57:11 AM Medications Medications Current Medications Acetaminophen (Tylenol Tab) 500 mg Q6H PRN PO PAIN AND OR ELEVATED TEMP; Start 03/01/17 at 13:30 Lidocaine (Lidocaine 5% Oint) 1 applic BID TOP Last administered on 03/02/17t 20:49; Admin Dose 1 APPLIC; Start 03/01/17 at 21:00 Lidocaine (Lidoderm) 1 patch DAILY TD Last administered on 03/02/17 09:07; Admin Dose 1 PATCH; Start 03/02/17 at 09:00 Metolazone (Zaroxolyn) 2.5 mg DAILY PO Last administered on 03/03/17 09:03; Admin Dose 2.5 MG; Start 03/02/17 at 09:00 Oxycodone HCl (Roxicodone) 2.5 mg Q6H PRN PO PAIN; Start 03/01/17 at 13:30 Prednisone 5 mg 5 mg DAILY PO Last administered on 03/03/17 09:05; Admin Dose 5 MG; Start 03/02/17 at 09:00 Meropenem/Sodium Chloride 50 ml @ 100 mls/hr Q12 IVPB Last administered on 08:59; Admin Dose 100 MLS/HR; Start 03/01/17 at 15:30 Fluconazole/ Sodium Chloride (Diflucan 100 Mg/ NS (Pmx)) 50 ml @ 50 mls/hr Q24H IVPB Last administered on 03/02/17 18:32; Admin Dose 50 MLS/HR; Start at 16:30 Vancomycin HCl (Vanco Iv Per Pharmacy) PER PHARMACY DOSING NOTE XX ; Start 03/01 at 14:30 Eye Lubricant (Akwa Oint) 1 applic DAILY PRN RIGHT EYE ITCHING Last administered on 03/02/17 20:49; Admin Dose 1 APPLIC; Start 03/01/17 at 15:00 Bisacodyl (Dulcolax) 5 mg DAILY PRN PO CONSTIPATION; Start 03/01/17 at 15:00 Cyclosporine (Sandimmune) 25 mg BID PO Last administered on 03/03/17 09:02; Admin Dose 25 MG; Start 03/01/17 at 21:00 Doxazosin Mesylate (Cardura) 2 mg QHS PO Last administered on 03/02/17 20:49; Admin Dose 2 MG; Start 03/01/17 at 21:00 Fluticasone Propionate (Flonase 0.05% Nasal) 1 spray BID NASAL Last administered on 03/03/17 09:02; Admin Dose 1 SPRAY; Start 03/01/17 at 21:00 Midodrine (Proamatine) 2.5 mg DAILY PO Last administered on 03/03/17 09:03; Admin Dose 2.5 MG; Start 03/02/17 at 09:00 Senna/Docusate Sodium (Senokot-S) 1 tab QHS PRN PO CONSTIPATION; Start at 15:00 Thiamine HCl (Vitamin B1) 100 mg DAILY PO Last administered on 03/03/17 09:02 ; Admin Dose 100 MG; Start 03/02/17 at 09:00 Eye Lubricant 1 drop 1 drop Q4H PRN BOTH EYES ITCHING EYES; Start 03/01/17 at 15:30 Norepinephrine 16 mg/Dextrose 500 ml @ 0 mls/hr TITRATE IV Last administered on 03/01/17 22:15; Admin Dose 3.75 MLS/HR; Start 03/01/17 at 17:30 Propofol 100 ml @ 2.406 mls/ hr Q12H IV Last administered on 03/03/17 06:22; Admin Dose 14.436 MLS/HR; Start 03/01/17 at 19:30 Midazolam HCl (Versed) 50 ml @ 1 mls/hr TITRATE IV ; Start 03/01/17 at 19:30 REX FORREST DO Mar 03, 2017 09:18
[2017-03-03] MEDS ORDERED: VANCOMYCIN 1.5 GM in SOD CHLORIDE 0.9% 250 ML IVPB SCH (12:00)
[2017-03-03] MEDS: LIDOCAINE 5% PATCH TD SCH (12:06)
[2017-03-03] MEDS: LIDOCAINE 5% 35 GM OINT TOP SCH ×2 (12:06→21:21)
--- NOTE | 2017-03-03 12:19 | RADRPT ---
PROCEDURE: XR Chest. CLINICAL INDICATION: Shortness of breath. TECHNIQUE: Single frontal view. COMPARISON: 03/02/2017. FINDINGS: The endotracheal tube, nasogastric tube, and tunneled right internal jugular vein catheter remain in satisfactory position. A left-sided permanent pacemaker is unchanged. Bilateral air space disease c onsistent with pulmonary edema or bilateral pneumonia is unchanged. The heart is enlarged. There is calcification in the aorta consistent with atherosclerosis. There are moderate bilateral pleural effusions. There is no pneumothorax. IMPRESSION: 1. No change from 03/02/2017. RPTAT: QQ .Pa Arroyo MD, MD Date Time Electronically viewed and signed by .Pa Arroyo MD, on 03/03/2017 12:19 .R/
--- NOTE | 2017-03-03 13:21 | CONS ---
Date/Time of Note Date/Time of Note DATE: 03/03/17 TIME: 13:20 Consult Date/Type/Reason Admit Date/Time Mar 01, 2017 at 13:35 Initial Consult Date 03/01/17 Type of Consultation: Pulmonary/critical care Subjective Remains on vent and on levophed gtt. Objective Vital Signs Date Time Temp Pulse Resp B/P Pulse Ox O2 Delivery O2 Flow Rate FiO2 03/03/17 12:30 67 23 87/55 100 03/03/17 12:00 99.2 03/03/17 07:58 40 03/03/17 05:00 Mechanical Ventilator Intake and Output 03/02/17 03/02/17 03/03/17 15:00 23:00 07:00 Intake Total 294.488 ml 775.344 ml 202.005 ml Output Total 0 ml 5500 ml 0 ml Balance 294.488 ml -4724.656 ml 202.005 ml Exam HEENT: Pupils equal, round, and reactive to light. CARDIAC: S1, S2, no added sounds or murmurs. CHEST: Diminished air entry bilaterally. ABDOMEN: Mildly distended. Bowel sounds present no guarding or rebound EXTREMITIES: No cyanosis, clubbing edema +1 Results/Medications Result Diagram: 03/03/175 03/03/17 0425 Results 24 hrs Laboratory Tests Test 03/03/17 04:25 03/03/17 07:00 White Blood Count 10.1 Red Blood Count 3.59 L Hemoglobin 10.1 L Hematocrit 33.3 L Mean Corpuscular Volume 92.8 Mean Corpuscular Hemoglobin 28.1 L Mean Corpuscular Hemoglobin Concent 30.3 L Red Cell Distribution Width 17.0 H Platelet Count 121 L Mean Platelet Volume 10.2 Neutrophils % 66.6 Lymphocytes % 14.7 L Monocytes % 16.1 H Eosinophils % 1.5 Basophils % 0.5 Nucleated Red Blood Cells % 0.0 Neutrophils # 6.7 Lymphocytes # 1.5 Monocytes # 1.6 H Eosinophils # 0.2 Basophils # 0.1 Nucleated Red Blood Cells # 0.0 Sodium Level 139 Potassium Level 3.5 Chloride Level 101 Carbon Dioxide Level 27 Anion Gap 15 Blood Urea Nitrogen 30 #H Creatinine 1.87 H Glucose Level 79 Calcium Level 8.2 L Phosphorus Level 3.0 Magnesium Level 1.9 Random Vancomycin Level 5.4 Blood Gas Specimen Source Blood arterial Arterial Blood Date Drawn 03/03/2017 8:40:38 AM Arterial Blood pH (Temp corrected) 7.498 H Arterial Blood pCO2 (Temp correct) 32.7 L Arterial Blood pO2 (Temp corrected) 103.7 H Arterial Blood HCO3 24.8 Arterial Blood Base Excess 2.0 Arterial Blood Oxygen Saturation 98.0 Sly Test ACCEPTAB Arterial Blood Gas Puncture Site Right Radial Arterial Blood Carboxyhemoglobin 0.2 Arterial Blood Methemoglobin 0.2 Blood Gas A-a O2 Differential 143.9 H Oxyhemoglobin Percent 97.6 Total Hemoglobin 11.8 L Blood Gas Temperature 37.0 Blood Gas Respiration Rate 20.0 Blood Gas Actual Respiration Rate 20 Blood Gas Modality VENT - AC FiO2 40.0 Blood Gas Tidal Volume 500.0 Blood Gas Low PEEP Setting 5.0 Blood Gas Notified Whom DT Blood Gas Notified Time 03/03/2017 8:57:11 AM Medications Current Medications Acetaminophen (Tylenol Tab) 500 mg Q6H PRN PO PAIN AND OR ELEVATED TEMP; Start 03/01/17 at 13:30 Lidocaine (Lidocaine 5% Oint) 1 applic BID TOP Last administered on 03/03/17 12:06; Admin Dose 1 APPLIC; Start 03/01/17 at 21:00 Lidocaine (Lidoderm) 1 patch DAILY TD Last administered on 03/03/17 12:06; Admin Dose 1 PATCH; Start 03/02/17 at 09:00 Metolazone (Zaroxolyn) 2.5 mg DAILY PO Last administered on 03/03/17 09:03; Admin Dose 2.5 MG; Start 03/02/17 at 09:00 Oxycodone HCl (Roxicodone) 2.5 mg Q6H PRN PO PAIN; Start 03/01/17 at 13:30 Prednisone 5 mg 5 mg DAILY PO Last administered on 03/03/17 09:05; Admin Dose 5 MG; Start 03/02/17 at 09:00 Meropenem/Sodium Chloride 50 ml @ 100 mls/hr Q12 IVPB Last administered on 08:59; Admin Dose 100 MLS/HR; Start 03/01/17 at 15:30 Fluconazole/ Sodium Chloride (Diflucan 100 Mg/ NS (Pmx)) 50 ml @ 50 mls/hr Q24H IVPB Last administered on 03/02/17 18:32; Admin Dose 50 MLS/HR; Start at 16:30 Vancomycin HCl (Vanco Iv Per Pharmacy) PER PHARMACY DOSING NOTE XX ; Start 03/01 at 14:30 Eye Lubricant (Akwa Oint) 1 applic DAILY PRN RIGHT EYE ITCHING Last administered on 03/02/17 20:49; Admin Dose 1 APPLIC; Start 03/01/17 at 15:00 Bisacodyl (Dulcolax) 5 mg DAILY PRN PO CONSTIPATION; Start 03/01/17 at 15:00 Cyclosporine (Sandimmune) 25 mg BID PO Last administered on 03/03/17 09:02; Admin Dose 25 MG; Start 03/01/17 at 21:00 Doxazosin Mesylate (Cardura) 2 mg QHS PO Last administered on 03/02/17 20:49; Admin Dose 2 MG; Start 03/01/17 at 21:00 Fluticasone Propionate (Flonase 0.05% Nasal) 1 spray BID NASAL Last administered on 03/03/17 09:02; Admin Dose 1 SPRAY; Start 03/01/17 at 21:00 Midodrine (Proamatine) 2.5 mg DAILY PO Last administered on 03/03/17 09:03; Admin Dose 2.5 MG; Start 03/02/17 at 09:00 Senna/Docusate Sodium (Senokot-S) 1 tab QHS PRN PO CONSTIPATION; Start at 15:00 Thiamine HCl (Vitamin B1) 100 mg DAILY PO Last administered on 03/03/17 09:02 ; Admin Dose 100 MG; Start 03/02/17 at 09:00 Eye Lubricant 1 drop 1 drop Q4H PRN BOTH EYES ITCHING EYES; Start 03/01/17 at 15:30 Norepinephrine 16 mg/Dextrose 500 ml @ 0 mls/hr TITRATE IV Last administered on 03/01/17 22:15; Admin Dose 3.75 MLS/HR; Start 03/01/17 at 17:30 Propofol 100 ml @ 2.406 mls/ hr Q12H IV Last administered on 03/03/17 06:22; Admin Dose 14.436 MLS/HR; Start 03/01/17 at 19:30 Midazolam HCl 50 ml @ 1 mls/hr TITRATE IV ; Start 03/01/17 at 19:30 Vancomycin HCl/ Sodium Chloride (Vancocin/NS) 250 ml @ 83.333 mls/ hr Q24H IVPB Last administered on 03/03/17t 12:05; Admin Dose 83.333 MLS/HR; Start 03/03/17 at 12:00; Stop 03/03/17 at 20:00 Pantoprazole (Protonix Iv) 40 mg DAILY@06 IV ; Start 03/04/17 at 06:00 Assessment/Plan Additional Assessment/Plan IMP: 1. Aspiration pneumonia with hypoxemic respiratory failure 2. Septic shock secondary to above 3. Recent pacemaker placement 4. End-stage renal failure on hemodialysis 5. History of renal transplant 6. Atrial Flutter RECS: 1. Continue mechanical ventilation 2. Broad spectrum antibiotic coverage 3. Decrease FiO2 as tolerated 4. Hemodialysis as tolerated 5. TF/Free H20 6. Titrate levophed gtt as tolerated Critical care time 40 minutes. TONEY SALEH MD Mar 03, 2017 13:21
[2017-03-03] MEDS: FLUCONAZOLE 100 MG/NS (PMX) 50 ML IVPB SCH (15:48)
--- NOTE | 2017-03-03 16:51 | CONS ---
Date/Time of Note Date/Time of Note DATE: 03/03/17 TIME: 16:44 Consult Date/Type/Reason Admit Date/Time Mar 01, 2017 at 13:35 Initial Consult Date 03/01/17 Type of Consultation: cardiology Subjective CARDIOLOGY FOLLOW UP NOTE: S: Discussed with staff and rhythm strip is reviewed. Patient remains in demand ventricular pacemaker. Patient is a sitting to been on the vent in ICU. He is still on Levophed drip. He is sedated and nonverbal at this point. O: General: thin man, s/p trach on vent. HEENT: NC/AT. . NECK: . no stridor. CV: RRR. systolic murmur; no gallop or rubs. chest: s/p left sided PPM, no hematoma or bleeding PULM: no wheezing + diffuse rhonchi. GI: SOFT, NT, ND, no rebound or guarding Extremity:+ B/L LE edema. no clubbing. neuro: sedated. Psych: calm and pleasant rectal: deferred : normal Objective Vital Signs Date Time Temp Pulse Resp B/P Pulse Ox O2 Delivery O2 Flow Rate FiO2 03/03/17 14:15 60 20 102/65 100 03/03/17 13:10 40 03/03/17 12:00 99.2 03/03/17 05:00 Mechanical Ventilator Intake and Output 03/02/17 03/02/17 03/03/17 15:00 23:00 07:00 Intake Total 294.488 ml 775.344 ml 202.005 ml Output Total 0 ml 5500 ml 0 ml Balance 294.488 ml -4724.656 ml 202.005 ml Results/Medications Result Diagram: 03/03/17 0425 03/03/17 0425 Results 24 hrs Laboratory Tests Test 03/03/17 04:25 03/03/17 07:00 White Blood Count 10.1 Red Blood Count 3.59 L Hemoglobin 10.1 L Hematocrit 33.3 L Mean Corpuscular Volume 92.8 Mean Corpuscular Hemoglobin 28.1 L Mean Corpuscular Hemoglobin Concent 30.3 L Red Cell Distribution Width 17.0 H Platelet Count 121 L Mean Platelet Volume 10.2 Neutrophils % 66.6 Lymphocytes % 14.7 L Monocytes % 16.1 H Eosinophils % 1.5 Basophils % 0.5 Nucleated Red Blood Cells % 0.0 Neutrophils # 6.7 Lymphocytes # 1.5 Monocytes # 1.6 H Eosinophils # 0.2 Basophils # 0.1 Nucleated Red Blood Cells # 0.0 Sodium Level 139 Potassium Level 3.5 Chloride Level 101 Carbon Dioxide Level 27 Anion Gap 15 Blood Urea Nitrogen 30 #H Creatinine 1.87 H Glucose Level 79 Calcium Level 8.2 L Phosphorus Level 3.0 Magnesium Level 1.9 Random Vancomycin Level 5.4 Blood Gas Specimen Source Blood arterial Arterial Blood Date Drawn 03/03/2017 8:40:38 AM Arterial Blood pH (Temp corrected) 7.498 H Arterial Blood pCO2 (Temp correct) 32.7 L Arterial Blood pO2 (Temp corrected) 103.7 H Arterial Blood HCO3 24.8 Arterial Blood Base Excess 2.0 Arterial Blood Oxygen Saturation 98.0 Sly Test ACCEPTAB Arterial Blood Gas Puncture Site Right Radial Arterial Blood Carboxyhemoglobin 0.2 Arterial Blood Methemoglobin 0.2 Blood Gas A-a O2 Differential 143.9 H Oxyhemoglobin Percent 97.6 Total Hemoglobin 11.8 L Blood Gas Temperature 37.0 Blood Gas Respiration Rate 20.0 Blood Gas Actual Respiration Rate 20 Blood Gas Modality VENT - AC FiO2 40.0 Blood Gas Tidal Volume 500.0 Blood Gas Low PEEP Setting 5.0 Blood Gas Notified Whom DT Blood Gas Notified Time 03/03/2017 8:57:11 AM Medications Current Medications Acetaminophen (Tylenol Tab) 500 mg Q6H PRN PO PAIN AND OR ELEVATED TEMP; Start 03/01/17 at 13:30 Lidocaine (Lidocaine 5% Oint) 1 applic BID TOP Last administered on 03/03/17 12:06; Admin Dose 1 APPLIC; Start 03/01/17 at 21:00 Lidocaine (Lidoderm) 1 patch DAILY TD Last administered on 03/03/17 12:06; Admin Dose 1 PATCH; Start 03/02/17 at 09:00 Metolazone (Zaroxolyn) 2.5 mg DAILY PO Last administered on 03/03/17 09:03; Admin Dose 2.5 MG; Start 03/02/17 at 09:00 Oxycodone HCl (Roxicodone) 2.5 mg Q6H PRN PO PAIN; Start 03/01/17 at 13:30 Prednisone 5 mg 5 mg DAILY PO Last administered on 03/03/17 09:05; Admin Dose 5 MG; Start 03/02/17 at 09:00 Meropenem/Sodium Chloride 50 ml @ 100 mls/hr Q12 IVPB Last administered on 08:59; Admin Dose 100 MLS/HR; Start 03/01/17 at 15:30 Fluconazole/ Sodium Chloride (Diflucan 100 Mg/ NS (Pmx)) 50 ml @ 50 mls/hr Q24H IVPB Last administered on 03/03/17 15:48; Admin Dose 50 MLS/HR; Start at 16:30 Vancomycin HCl (Vanco Iv Per Pharmacy) PER PHARMACY DOSING NOTE XX ; Start 03/01 at 14:30 Eye Lubricant (Akwa Oint) 1 applic DAILY PRN RIGHT EYE ITCHING Last administered on 03/02/17 20:49; Admin Dose 1 APPLIC; Start 03/01/17 at 15:00 Bisacodyl (Dulcolax) 5 mg DAILY PRN PO CONSTIPATION; Start 03/01/17 at 15:00 Cyclosporine (Sandimmune) 25 mg BID PO Last administered on 03/03/17 09:02; Admin Dose 25 MG; Start 03/01/17 at 21:00 Doxazosin Mesylate (Cardura) 2 mg QHS PO Last administered on 03/02/17 20:49; Admin Dose 2 MG; Start 03/01/17 at 21:00 Fluticasone Propionate (Flonase 0.05% Nasal) 1 spray BID NASAL Last administered on 03/03/17 09:02; Admin Dose 1 SPRAY; Start 03/01/17 at 21:00 Midodrine (Proamatine) 2.5 mg DAILY PO Last administered on 03/03/17 09:03; Admin Dose 2.5 MG; Start 03/02/17 at 09:00 Senna/Docusate Sodium (Senokot-S) 1 tab QHS PRN PO CONSTIPATION; Start at 15:00 Thiamine HCl (Vitamin B1) 100 mg DAILY PO Last administered on 03/03/17 09:02 ; Admin Dose 100 MG; Start 03/02/17 at 09:00 Eye Lubricant 1 drop 1 drop Q4H PRN BOTH EYES ITCHING EYES; Start 03/01/17 at 15:30 Norepinephrine 16 mg/Dextrose 500 ml @ 0 mls/hr TITRATE IV Last administered on 03/01/17 22:15; Admin Dose 3.75 MLS/HR; Start 03/01/17 at 17:30 Propofol 100 ml @ 2.406 mls/ hr Q12H IV Last administered on 03/03/17 13:49; Admin Dose 14.436 MLS/HR; Start 03/01/17 at 19:30 Midazolam HCl 50 ml @ 1 mls/hr TITRATE IV ; Start 03/01/17 at 19:30 Vancomycin HCl/ Sodium Chloride (Vancocin/NS) 250 ml @ 83.333 mls/ hr Q24H IVPB Last administered on 03/03/17 12:05; Admin Dose 83.333 MLS/HR; Start 03/03/17 at 12:00; Stop 03/03/17 at 20:00 Pantoprazole (Protonix Iv) 40 mg DAILY@06 IV ; Start 03/04/17 at 06:00 Assessment/Plan Chief Complaint/Hosp Course 1. Acute on-chronic hypoxemic, hypercapnic respiratory failure, status post intubation, now on the ventilator. 2. Sick sinus syndrome, status post permanent pacemaker. 3. Atrial fibrillation with a slow ventricular response, heart rate under control with the pacemaker. 4. Septic shock: still on levophed rip 5. Pneumonia. 6. Anemia. 7. History of hepatitis C. 8. History of renal transplant. 9. Renal failure, status post hemodialysis. RECOMMENDATIONS: I will continue with the Levophed drip for now to control the blood pressure. Antibiotic is being managed as per Infectious Disease recommendations. off of Procardia due to hypotension. Eliquis is currently on hold. will resume it and monitor as long as no active bleeding is noted. . Antirejection medications as per Renal. Dialysis as per Renal. Ventilator support, respiratory care will be continued. Continue with the ICU care. THANK YOU ROLAND DORSEY MD [facility] . Problems: ROLAND DORSEY MD Mar 03, 2017 16:51
[2017-03-03] MEDS: ALBUTEROL 18 GM INHALER INH PRN (19:43)
[2017-03-03] MEDS: IPRATROPIUM (HFA) 12.9 GM INHALER INH PRN (19:43)
[2017-03-03] MEDS: DOXAZOSIN 2 MG TAB PO SCH (21:00)
[2017-03-04] VITALS (96 sets, daily range): BP systolic 71–142; BP diastolic 48–81; PULSE 60–83; RESP 0–58
[2017-03-04] MEDS: PANTOPRAZOLE 40 MG INJ IV SCH (06:53)
[2017-03-04] MEDS: PROPOFOL 100 ML IV SCH ×2 (06:53→23:32)
[2017-03-04] MEDS ORDERED: DEXTROSE 50% 50 ML SYRINGE ONE (08:11)
[2017-03-04] MEDS ORDERED: DEXTROSE 50% 50 ML SYRINGE IV PRN (08:30)
[2017-03-04] MEDS ORDERED: DEXTROSE 50% 50 ML SYRINGE IV ONE (08:30)
[2017-03-04] MEDS: MEROPENEM 500MG/50 ML (PMX) 50 ML IVPB SCH ×2 (08:34→21:46)
[2017-03-04] MEDS: FLUTICASONE 0.05% 16 GM NAS SPRAY NASAL SCH (08:35)
[2017-03-04] MEDS: predniSONE 5 MG TAB PO SCH (08:35)
[2017-03-04] MEDS: METOLAZONE 2.5 MG TAB PO SCH ×2 (08:35→08:37)
[2017-03-04] MEDS: LIDOCAINE 5% 35 GM OINT TOP SCH ×3 (08:36→21:48)
[2017-03-04] MEDS: CYCLOSPORINE 25 MG CAP PO SCH ×2 (08:37→21:46)
[2017-03-04] MEDS: MIDODRINE 5 MG TAB PO SCH (08:37)
[2017-03-04] MEDS: LIDOCAINE 5% PATCH TD SCH (08:38)
[2017-03-04] MEDS: THIAMINE 100 MG TAB PO SCH (08:38)
[2017-03-04] MEDS: IPRATROPIUM (HFA) 12.9 GM INHALER INH PRN ×2 (08:48→19:30)
[2017-03-04] MEDS: ACETYLCYSTEINE 20% 4 ML VIAL NEB SCH ×2 (08:48→20:00)
[2017-03-04] MEDS: ALBUTEROL 18 GM INHALER INH PRN ×2 (08:49→19:30)
--- NOTE | 2017-03-04 09:57 | PN ---
Date/Time of Note Date/Time of Note DATE: 03/04/17 TIME: 09:54 Assessment/Plan VTE Prophylaxis VTE Prophylaxis Intervention: other Lines/Catheters IV [facility] Type [facility] Urinary Cath still in place: No Assessment/Plan Chief Complaint/Hosp Course HISTORY OF PRESENT ILLNESS: This is a 66-year-old male with a long, complicated past medical history. 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 The patient's kidney function initially had improvement where he was able to be taken off dialysis. The patient, however, years later went back on dialysis. In 1985. The patient underwent cadaveric renal transplant that was complicated with 1 episode of rejection that resolved with steroids. The patient in 2016, early, had a knee replacement surgery [facility] which was complicated by seroma and another surgery of that knee. The patient was treated for pneumonia. He was then admitted to [facility] in 11/2016. At that time, the patient had concerns of possible renal artery stenosis. The patient unfortunately underwent a cardiac arrest after being given Dilaudid. He had PA at the time, a code blue was called. He received 4 rounds of compression, epinephrine and 3 amps of bicarbonate. The patient was then intubated, admitted to intensive care unit and extubated few days later. He was then transferred to [facility]. Please note, during his hospital stay, while in the intensive care unit, the patient was on continuous renal replacement therapy. While at [place], the patient has been receiving respiratory care by Pulmonology, has been seen by cardiology. During the course in [place], the patient was on intermittent hemodialysis due to episodes of hyperkalemia. The patient also noted to have arrhythmia and had a recent pacemaker placement by Dr. Rosas. The patient was noted to be in more serious respiratory distress, hyperkalemic, hypotensive and was transferred to the intensive care unit for continued care. While in intensive care unit, the patient had hemodialysis. Unfortunately, he required intubation and was placed on pressor support. Overnight, no other acute events noted. No hemoptysis, hematemesis or hematochezia. on HD today. He was seen again for hypotension. Levophed was increased with improvement in BP. UF rate also decreased to 2 liters. MEDICATIONS: The patient's medications have been reviewed and reconciled. REVIEW OF SYSTEMS: A 14-point review of systems was conducted. Pertinent positives as obtained by reviewing medical records stated in HPI. PHYSICAL EXAMINATION: HEENT: Head is normocephalic, neck supple. CARDIOVASCULAR: Heart is regular rate, lungs show diminished breath sounds at the base. ABDOMEN: Soft, nontender to palpation without rebound or guarding. EXTREMITIES: Negative for clubbing, cyanosis. No trace edema. DERMATOLOGIC: No rashes. MUSCULOSKELETAL: No joint effusions. NEUROLOGIC: Limited exam as the patient is obtunded. ASSESSMENT AND PLAN: This is a 66-year-old male who presents with: 1. acute Ventilator-dependent respiratory failure. Etiology is likely secondary to multifocal pneumonia and congestive heart failure. The patient's CT scan was reviewed. The patient was intubated yesterday due to persistent hypoxemia. Plan at this point is to continue to treat underlying pneumonia. Continue ultrafiltration with hemodialysis. 2. Septic shock secondary to pneumonia. The patient is currently on pressor support and IV antibiotics will continue. Follow up cultures. Follow up with Infectious disease. 3. 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 The patient is currently dialysis dependent. He will receive intermittent hemodialysis as necessary. Will continue to monitor for any signs of recovery. 4. 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 The patient is currently in acute kidney injury as stated above, will continue current treatment plan as stated above. Continue current immunosuppressive regimen. 5. History of arrhythmia, status post pacemaker placement. Follow up with cardiology. 6. Anemia. Monitor H and H levels. 7. Mineral bone disorder. Monitor calcium and phosphorus levels. 8. Acute encephalopathy toxic metabolic. Continue to monitor. 9. Gastrointestinal and deep venous thrombosis prophylaxis. 10. History of hepatitis C. 11. Severe debility. 12. History of osteoarthritis. 13. History of gout. Problems: Exam/Review of Systems Vital Signs Vitals Vital Signs Date Time Temp Pulse Resp B/P Pulse Ox O2 Delivery O2 Flow Rate FiO2 03/04/17 08:49 60 20 100 30 03/04/17 07:45 94/72 03/04/17 00:00 97.5 03/03/17 05:00 Mechanical Ventilator Intake and Output 03/03/17 03/03/17 03/04/17 15:00 23:00 07:00 Intake Total 199.846 ml 253.59 ml 188.1 ml Output Total 0 ml 0 ml 0 ml Balance 199.846 ml 253.59 ml 188.1 ml Results Result Diagram: 03/04/17 0400 03/04/17 0355 Results 24 hrs Laboratory Tests Test 03/04/17 03:55 03/04/17 04:00 03/04/17 05:00 03/04/17 08:02 Sodium Level 138 Potassium Level 3.9 Chloride Level 101 Carbon Dioxide Level 24 Anion Gap 17 H Blood Urea Nitrogen 38 H Creatinine 2.52 H Glucose Level 60 #L Lactic Acid Level 1.0 Calcium Level 8.1 L White Blood Count 10.7 Red Blood Count 3.41 L Hemoglobin 9.7 L Hematocrit 32.3 L Mean Corpuscular Volume 94.7 Mean Corpuscular Hemoglobin 28.4 L Mean Corpuscular Hemoglobin Concent 30.0 L Red Cell Distribution Width 16.8 H Platelet Count 120 L Mean Platelet Volume 9.9 Neutrophils % 63.6 Lymphocytes % 17.0 Monocytes % 16.7 H Eosinophils % 1.9 Basophils % 0.3 Nucleated Red Blood Cells % 0.0 Neutrophils # 6.8 Lymphocytes # 1.8 Monocytes # 1.8 H Eosinophils # 0.2 Basophils # 0.0 Nucleated Red Blood Cells # 0.0 Blood Gas Specimen Source Blood arterial Arterial Blood Date Drawn 03/04/2017 4:50:43 AM Arterial Blood pH (Temp corrected) 7.386 Arterial Blood pCO2 (Temp correct) 35.9 Arterial Blood pO2 (Temp corrected) 102.6 H Arterial Blood HCO3 21.0 L Arterial Blood Base Excess -3.4 L Arterial Blood Oxygen Saturation 97.6 Sly Test ACCEPTAB Arterial Blood Gas Puncture Site Right Radial Arterial Blood Carboxyhemoglobin 0.2 Arterial Blood Methemoglobin 0.2 Blood Gas A-a O2 Differential 141.3 H Oxyhemoglobin Percent 97.2 Total Hemoglobin 11.1 L Blood Gas Temperature 37.0 Blood Gas Respiration Rate 20.0 Blood Gas Actual Respiration Rate 20 Blood Gas Modality VENT - AC FiO2 40.0 Blood Gas Tidal Volume 500.0 Blood Gas Low PEEP Setting 5.0 Blood Gas Notified Whom UP Blood Gas Notified Time 03/04/2017 5:08:07 AM Bedside Glucose 62 L Test 03/04/17 08:32 Bedside Glucose 125 Medications Medications Current Medications Acetaminophen (Tylenol Tab) 500 mg Q6H PRN PO PAIN AND OR ELEVATED TEMP; Start 03/01/17 at 13:30 Lidocaine (Lidocaine 5% Oint) 1 applic BID TOP Last administered on 03/04/17 08:36; Admin Dose 1 APPLIC; Start 03/01/17 at 21:00 Lidocaine (Lidoderm) 1 patch DAILY TD Last administered on 03/04/17 08:38; Admin Dose 1 PATCH; Start 03/02/17 at 09:00 Metolazone (Zaroxolyn) 2.5 mg DAILY PO Last administered on 03/04/17 08:37; Admin Dose 2.5 MG; Start 03/02/17 at 09:00 Oxycodone HCl (Roxicodone) 2.5 mg Q6H PRN PO PAIN; Start 03/01/17 at 13:30 Prednisone 5 mg 5 mg DAILY PO Last administered on 03/04/17 08:35; Admin Dose 5 MG; Start 03/02/17 at 09:00 Meropenem/Sodium Chloride 50 ml @ 100 mls/hr Q12 IVPB Last administered on 08:34; Admin Dose 100 MLS/HR; Start 03/01/17 at 15:30 Fluconazole/ Sodium Chloride (Diflucan 100 Mg/ NS (Pmx)) 50 ml @ 50 mls/hr Q24H IVPB Last administered on 03/03/17 15:48; Admin Dose 50 MLS/HR; Start at 16:30 Vancomycin HCl (Vanco Iv Per Pharmacy) PER PHARMACY DOSING NOTE XX ; Start 03/01 at 14:30 Eye Lubricant (Akwa Oint) 1 applic DAILY PRN RIGHT EYE ITCHING Last administered on 03/02/17 20:49; Admin Dose 1 APPLIC; Start 03/01/17 at 15:00 Bisacodyl (Dulcolax) 5 mg DAILY PRN PO CONSTIPATION; Start 03/01/17 at 15:00 Cyclosporine (Sandimmune) 25 mg BID PO Last administered on 03/04/17 08:37; Admin Dose 25 MG; Start 03/01/17 at 21:00 Doxazosin Mesylate (Cardura) 2 mg QHS PO Last administered on 03/02/17 20:49; Admin Dose 2 MG; Start 03/01/17 at 21:00 Fluticasone Propionate (Flonase 0.05% Nasal) 1 spray BID NASAL Last administered on 03/04/17 08:35; Admin Dose 1 SPRAY; Start 03/01/17 at 21:00 Midodrine (Proamatine) 2.5 mg DAILY PO Last administered on 03/04/17 08:37; Admin Dose 2.5 MG; Start 03/02/17 at 09:00 Senna/Docusate Sodium (Senokot-S) 1 tab QHS PRN PO CONSTIPATION; Start at 15:00 Thiamine HCl (Vitamin B1) 100 mg DAILY PO Last administered on 03/04/17 08:38 ; Admin Dose 100 MG; Start 03/02/17 at 09:00 Eye Lubricant 1 drop 1 drop Q4H PRN BOTH EYES ITCHING EYES; Start 03/01/17 at 15:30 Norepinephrine 16 mg/Dextrose 500 ml @ 0 mls/hr TITRATE IV Last administered on 03/04/17 03:51; Admin Dose 5.62 MLS/HR; Start 03/01/17 at 17:30 Propofol 100 ml @ 2.406 mls/ hr Q12H IV Last administered on 03/04/17 06:53; Admin Dose 12.03 MLS/HR; Start 03/01/17 at 19:30 Midazolam HCl (Versed) 50 ml @ 1 mls/hr TITRATE IV ; Start 03/01/17 at 19:30 Pantoprazole (Protonix Iv) 40 mg DAILY@06 IV Last administered on 03/04/17 06: 53; Admin Dose 40 MG; Start 03/04/17 at 06:00 REX FORREST DO Mar 04, 2017 09:57
--- NOTE | 2017-03-04 10:47 | RADRPT ---
PROCEDURE: XR Chest. CLINICAL INDICATION: Intubated, respiratory failure. TECHNIQUE: Anterior chest x-ray. COMPARISON: Chest radiograph performed the prior day. FINDINGS: There is stable and satisfactory position of the life-support lines. endotracheal tube terminates 3.5 cm above the magdiel. Dual lumen dialysis catheter terminates the right atrium. Nasogastric tube terminates the body of the stomach. Left single lead cardiac pacemaker is unchanged from previous exam. The lung volumes are low. There is crowding of central pulmonary vasculature. Retrocardiac consolidation is unchanged from previous exam. The heart size is large. The cardiomediastinal contour is stable. There is no free air under the hemidiaphragms. The soft tissues and bony structures are unchanged. IMPRESSION: 1. Stable and satisfactory position of the life-support lines. 2. Low lung volumes with compressive changes in bilateral lung bases, left greater than right, unch anged. 3. Cardiomegaly. RPTAT: II .Maciel Garduno MD, MD Date Time Electronically viewed and signed by .Maciel Garduno MD, on 03/04/2017 10:46 .M/
--- NOTE | 2017-03-04 13:09 | CONS ---
Date/Time of Note Date/Time of Note DATE: 03/04/17 TIME: 13:08 Assessment/Plan Assessment/Plan Chief Complaint/Hosp Course Full note dictated [id number] Problems: Consultation Date/Type/Reason Admit Date/Time Mar 01, 2017 at 13:35 Initial Consult Date 03/01/17 Type of Consultation: ID Exam/Review of Systems Vital Signs Vitals Vital Signs Date Time Temp Pulse Resp B/P Pulse Ox O2 Delivery O2 Flow Rate FiO2 03/04/17 12:45 63 23 112/68 98 03/04/17 12:00 30 03/04/17 12:00 98.5 03/03/17 05:00 Mechanical Ventilator Intake and Output 03/03/17 03/03/17 03/04/17 15:00 23:00 07:00 Intake Total 199.846 ml 253.59 ml 188.1 ml Output Total 0 ml 0 ml 0 ml Balance 199.846 ml 253.59 ml 188.1 ml Results Result Diagram: 03/04/17 0400 03/04/17 0355 Results 24 hrs Laboratory Tests Test 03/04/17 03:55 03/04/17 04:00 03/04/17 05:00 03/04/17 08:02 Sodium Level 138 Potassium Level 3.9 Chloride Level 101 Carbon Dioxide Level 24 Anion Gap 17 H Blood Urea Nitrogen 38 H Creatinine 2.52 H Glucose Level 60 #L Lactic Acid Level 1.0 Calcium Level 8.1 L White Blood Count 10.7 Red Blood Count 3.41 L Hemoglobin 9.7 L Hematocrit 32.3 L Mean Corpuscular Volume 94.7 Mean Corpuscular Hemoglobin 28.4 L Mean Corpuscular Hemoglobin Concent 30.0 L Red Cell Distribution Width 16.8 H Platelet Count 120 L Mean Platelet Volume 9.9 Neutrophils % 63.6 Lymphocytes % 17.0 Monocytes % 16.7 H Eosinophils % 1.9 Basophils % 0.3 Nucleated Red Blood Cells % 0.0 Neutrophils # 6.8 Lymphocytes # 1.8 Monocytes # 1.8 H Eosinophils # 0.2 Basophils # 0.0 Nucleated Red Blood Cells # 0.0 Blood Gas Specimen Source Blood arterial Arterial Blood Date Drawn 03/04/2017 4:50:43 AM Arterial Blood pH (Temp corrected) 7.386 Arterial Blood pCO2 (Temp correct) 35.9 Arterial Blood pO2 (Temp corrected) 102.6 H Arterial Blood HCO3 21.0 L Arterial Blood Base Excess -3.4 L Arterial Blood Oxygen Saturation 97.6 Sly Test ACCEPTAB Arterial Blood Gas Puncture Site Right Radial Arterial Blood Carboxyhemoglobin 0.2 Arterial Blood Methemoglobin 0.2 Blood Gas A-a O2 Differential 141.3 H Oxyhemoglobin Percent 97.2 Total Hemoglobin 11.1 L Blood Gas Temperature 37.0 Blood Gas Respiration Rate 20.0 Blood Gas Actual Respiration Rate 20 Blood Gas Modality VENT - AC FiO2 40.0 Blood Gas Tidal Volume 500.0 Blood Gas Low PEEP Setting 5.0 Blood Gas Notified Whom UP Blood Gas Notified Time 03/04/2017 5:08:07 AM Bedside Glucose 62 L Test 03/04/17 08:32 Bedside Glucose 125 Medications Medications Current Medications Acetaminophen (Tylenol Tab) 500 mg Q6H PRN PO PAIN AND OR ELEVATED TEMP; Start 03/01/17 at 13:30 Lidocaine (Lidocaine 5% Oint) 1 applic BID TOP Last administered on 03/04/17 08:36; Admin Dose 1 APPLIC; Start 03/01/17 at 21:00 Lidocaine (Lidoderm) 1 patch DAILY TD Last administered on 03/04/17 08:38; Admin Dose 1 PATCH; Start 03/02/17 at 09:00 Metolazone (Zaroxolyn) 2.5 mg DAILY PO Last administered on 03/04/17 08:37; Admin Dose 2.5 MG; Start 03/02/17 at 09:00 Oxycodone HCl (Roxicodone) 2.5 mg Q6H PRN PO PAIN; Start 03/01/17 at 13:30 Prednisone 5 mg 5 mg DAILY PO Last administered on 03/04/17 08:35; Admin Dose 5 MG; Start 03/02/17 at 09:00 Meropenem/Sodium Chloride 50 ml @ 100 mls/hr Q12 IVPB Last administered on 08:34; Admin Dose 100 MLS/HR; Start 03/01/17 at 15:30 Fluconazole/ Sodium Chloride (Diflucan 100 Mg/ NS (Pmx)) 50 ml @ 50 mls/hr Q24H IVPB Last administered on 03/03/17 15:48; Admin Dose 50 MLS/HR; Start at 16:30 Vancomycin HCl (Vanco Iv Per Pharmacy) PER PHARMACY DOSING NOTE XX ; Start 03/01 at 14:30 Eye Lubricant (Akwa Oint) 1 applic DAILY PRN RIGHT EYE ITCHING Last administered on 03/02/17 20:49; Admin Dose 1 APPLIC; Start 03/01/17 at 15:00 Bisacodyl (Dulcolax) 5 mg DAILY PRN PO CONSTIPATION; Start 03/01/17 at 15:00 Cyclosporine (Sandimmune) 25 mg BID PO Last administered on 03/04/17 08:37; Admin Dose 25 MG; Start 03/01/17 at 21:00 Doxazosin Mesylate (Cardura) 2 mg QHS PO Last administered on 03/02/17 20:49; Admin Dose 2 MG; Start 03/01/17 at 21:00 Fluticasone Propionate (Flonase 0.05% Nasal) 1 spray BID NASAL Last administered on 03/04/17 08:35; Admin Dose 1 SPRAY; Start 03/01/17 at 21:00 Midodrine (Proamatine) 2.5 mg DAILY PO Last administered on 03/04/17 08:37; Admin Dose 2.5 MG; Start 03/02/17 at 09:00 Senna/Docusate Sodium (Senokot-S) 1 tab QHS PRN PO CONSTIPATION; Start at 15:00 Thiamine HCl (Vitamin B1) 100 mg DAILY PO Last administered on 03/04/17 08:38 ; Admin Dose 100 MG; Start 03/02/17 at 09:00 Eye Lubricant 1 drop 1 drop Q4H PRN BOTH EYES ITCHING EYES; Start 03/01/17 at 15:30 Norepinephrine 16 mg/Dextrose 500 ml @ 0 mls/hr TITRATE IV Last administered on 03/04/17 03:51; Admin Dose 5.62 MLS/HR; Start 03/01/17 at 17:30 Propofol 100 ml @ 2.406 mls/ hr Q12H IV Last administered on 03/04/17 06:53; Admin Dose 12.03 MLS/HR; Start 03/01/17 at 19:30 Midazolam HCl (Versed) 50 ml @ 1 mls/hr TITRATE IV ; Start 03/01/17 at 19:30 Pantoprazole (Protonix Iv) 40 mg DAILY@06 IV Last administered on 03/04/17t 06: 53; Admin Dose 40 MG; Start 03/04/17 at 06:00 MYLA CHIU NP Mar 04, 2017 13:09
--- NOTE | 2017-03-04 13:34 | CONS ---
Date/Time of Note Date/Time of Note DATE: 03/04/17 TIME: 13:32 Consult Date/Type/Reason Admit Date/Time Mar 01, 2017 at 13:35 Initial Consult Date 03/01/17 Type of Consultation: Pulm/CCM Subjective Remains on levophed gtt. Responsive on sedation Objective Vital Signs Date Time Temp Pulse Resp B/P Pulse Ox O2 Delivery O2 Flow Rate FiO2 03/04/17 12:45 63 23 112/68 98 03/04/17 12:00 30 03/04/17 12:00 98.5 03/03/17 05:00 Mechanical Ventilator Intake and Output 03/03/17 03/03/17 03/04/17 15:00 23:00 07:00 Intake Total 199.846 ml 253.59 ml 188.1 ml Output Total 0 ml 0 ml 0 ml Balance 199.846 ml 253.59 ml 188.1 ml Exam HEENT: Pupils equal, round, and reactive to light. CARDIAC: S1, S2, no added sounds or murmurs. CHEST: Diminished air entry bilaterally. ABDOMEN: Mildly distended. Bowel sounds present no guarding or rebound EXTREMITIES: No cyanosis, clubbing edema +1 Results/Medications Result Diagram: 03/04/17 0400 03/04/17 0355 Results 24 hrs Laboratory Tests Test 03/04/17 03:55 03/04/17 04:00 03/04/17 05:00 03/04/17 08:02 Sodium Level 138 Potassium Level 3.9 Chloride Level 101 Carbon Dioxide Level 24 Anion Gap 17 H Blood Urea Nitrogen 38 H Creatinine 2.52 H Glucose Level 60 #L Lactic Acid Level 1.0 Calcium Level 8.1 L White Blood Count 10.7 Red Blood Count 3.41 L Hemoglobin 9.7 L Hematocrit 32.3 L Mean Corpuscular Volume 94.7 Mean Corpuscular Hemoglobin 28.4 L Mean Corpuscular Hemoglobin Concent 30.0 L Red Cell Distribution Width 16.8 H Platelet Count 120 L Mean Platelet Volume 9.9 Neutrophils % 63.6 Lymphocytes % 17.0 Monocytes % 16.7 H Eosinophils % 1.9 Basophils % 0.3 Nucleated Red Blood Cells % 0.0 Neutrophils # 6.8 Lymphocytes # 1.8 Monocytes # 1.8 H Eosinophils # 0.2 Basophils # 0.0 Nucleated Red Blood Cells # 0.0 Blood Gas Specimen Source Blood arterial Arterial Blood Date Drawn 03/04/2017 4:50:43 AM Arterial Blood pH (Temp corrected) 7.386 Arterial Blood pCO2 (Temp correct) 35.9 Arterial Blood pO2 (Temp corrected) 102.6 H Arterial Blood HCO3 21.0 L Arterial Blood Base Excess -3.4 L Arterial Blood Oxygen Saturation 97.6 Sly Test ACCEPTAB Arterial Blood Gas Puncture Site Right Radial Arterial Blood Carboxyhemoglobin 0.2 Arterial Blood Methemoglobin 0.2 Blood Gas A-a O2 Differential 141.3 H Oxyhemoglobin Percent 97.2 Total Hemoglobin 11.1 L Blood Gas Temperature 37.0 Blood Gas Respiration Rate 20.0 Blood Gas Actual Respiration Rate 20 Blood Gas Modality VENT - AC FiO2 40.0 Blood Gas Tidal Volume 500.0 Blood Gas Low PEEP Setting 5.0 Blood Gas Notified Whom UP Blood Gas Notified Time 03/04/2017 5:08:07 AM Bedside Glucose 62 L Test 03/04/17 08:32 Bedside Glucose 125 Medications Current Medications Acetaminophen (Tylenol Tab) 500 mg Q6H PRN PO PAIN AND OR ELEVATED TEMP; Start 03/01/17 at 13:30 Lidocaine (Lidocaine 5% Oint) 1 applic BID TOP Last administered on 03/04/17 08:36; Admin Dose 1 APPLIC; Start 03/01/17 at 21:00 Lidocaine (Lidoderm) 1 patch DAILY TD Last administered on 03/04/17 08:38; Admin Dose 1 PATCH; Start 03/02/17 at 09:00 Metolazone (Zaroxolyn) 2.5 mg DAILY PO Last administered on 03/04/17 08:37; Admin Dose 2.5 MG; Start 03/02/17 at 09:00 Oxycodone HCl (Roxicodone) 2.5 mg Q6H PRN PO PAIN; Start 03/01/17 at 13:30 Prednisone 5 mg 5 mg DAILY PO Last administered on 03/04/17 08:35; Admin Dose 5 MG; Start 03/02/17 at 09:00 Meropenem/Sodium Chloride 50 ml @ 100 mls/hr Q12 IVPB Last administered on 08:34; Admin Dose 100 MLS/HR; Start 03/01/17 at 15:30 Fluconazole/ Sodium Chloride (Diflucan 100 Mg/ NS (Pmx)) 50 ml @ 50 mls/hr Q24H IVPB Last administered on 03/03/17 15:48; Admin Dose 50 MLS/HR; Start at 16:30 Vancomycin HCl (Vanco Iv Per Pharmacy) PER PHARMACY DOSING NOTE XX ; Start 03/01 at 14:30 Eye Lubricant (Akwa Oint) 1 applic DAILY PRN RIGHT EYE ITCHING Last administered on 03/02/17 20:49; Admin Dose 1 APPLIC; Start 03/01/17 at 15:00 Bisacodyl (Dulcolax) 5 mg DAILY PRN PO CONSTIPATION; Start 03/01/17 at 15:00 Cyclosporine (Sandimmune) 25 mg BID PO Last administered on 03/04/17 08:37; Admin Dose 25 MG; Start 03/01/17 at 21:00 Doxazosin Mesylate (Cardura) 2 mg QHS PO Last administered on 03/02/17 20:49; Admin Dose 2 MG; Start 03/01/17 at 21:00 Fluticasone Propionate (Flonase 0.05% Nasal) 1 spray BID NASAL Last administered on 03/04/17 08:35; Admin Dose 1 SPRAY; Start 03/01/17 at 21:00 Midodrine (Proamatine) 2.5 mg DAILY PO Last administered on 03/04/17 08:37; Admin Dose 2.5 MG; Start 03/02/17 at 09:00 Senna/Docusate Sodium (Senokot-S) 1 tab QHS PRN PO CONSTIPATION; Start at 15:00 Thiamine HCl (Vitamin B1) 100 mg DAILY PO Last administered on 03/04/17 08:38 ; Admin Dose 100 MG; Start 03/02/17 at 09:00 Eye Lubricant 1 drop 1 drop Q4H PRN BOTH EYES ITCHING EYES; Start 03/01/17 at 15:30 Norepinephrine 16 mg/Dextrose 500 ml @ 0 mls/hr TITRATE IV Last administered on 03/04/17 03:51; Admin Dose 5.62 MLS/HR; Start 03/01/17 at 17:30 Propofol 100 ml @ 2.406 mls/ hr Q12H IV Last administered on 03/04/17 06:53; Admin Dose 12.03 MLS/HR; Start 03/01/17 at 19:30 Midazolam HCl (Versed) 50 ml @ 1 mls/hr TITRATE IV ; Start 03/01/17 at 19:30 Pantoprazole (Protonix Iv) 40 mg DAILY@06 IV Last administered on 03/04/17t 06: 53; Admin Dose 40 MG; Start 03/04/17 at 06:00 Assessment/Plan Additional Assessment/Plan IMP: 1. Aspiration pneumonia with hypoxemic respiratory failure/Vent dependence 2. Septic shock secondary to above 3. Recent pacemaker placement 4. End-stage renal failure on hemodialysis 5. History of renal transplant 6. Atrial Flutter RECS: 1. Wean to CPAP 5 PS 10 at 7 am tomorrow 2. Broad spectrum antibiotic coverage 3. BDs/CPT 4. Hemodialysis as tolerated 5. TF/Free H20 6. Titrate levophed gtt as tolerated Critical care time 40 minutes. TONEY SALEH MD Mar 04, 2017 13:34
[2017-03-04] MEDS: FLUCONAZOLE 100 MG/NS (PMX) 50 ML IVPB SCH (16:18)
--- NOTE | 2017-03-04 17:45 | CONS ---
Date/Time of Note Date/Time of Note DATE: 03/04/17 TIME: 17:40 Consult Date/Type/Reason Admit Date/Time Mar 01, 2017 at 13:35 Initial Consult Date 03/01/17 Type of Consultation: CARDIOLOGY Subjective CARDIOLOGY FOLLOW UP NOTE: S: Discussed with staff and rhythm strip is reviewed. Patient remains in demand ventricular pacemaker. Patient is a sitting to been on the vent in ICU. He is still on Levophed drip but only at 2 jeremías now. He is sedated and nonverbal at this point. d/w O: General: thin man, s/p trach on vent. HEENT: NC/AT. . NECK: . no stridor. CV: RRR. systolic murmur; no gallop or rubs. chest: s/p left sided PPM, no hematoma or bleeding PULM: no wheezing + diffuse rhonchi. GI: SOFT, NT, ND, no rebound or guarding Extremity:+ B/L LE edema. no clubbing. neuro: sedated. Psych: calm and pleasant rectal: deferred : normal Objective Vital Signs Date Time Temp Pulse Resp B/P Pulse Ox O2 Delivery O2 Flow Rate FiO2 03/04/17 16:00 67 03/04/17 13:45 20 100 30 03/04/17 12:45 112/68 03/04/17 12:00 98.5 03/03/17 05:00 Mechanical Ventilator Intake and Output 03/03/17 03/03/17 03/04/17 15:00 23:00 07:00 Intake Total 199.846 ml 253.59 ml 188.1 ml Output Total 0 ml 0 ml 0 ml Balance 199.846 ml 253.59 ml 188.1 ml Results/Medications Result Diagram: 03/04/17 0400 03/04/17 0355 Results 24 hrs Laboratory Tests Test 03/04/17 03:55 03/04/17 04:00 03/04/17 05:00 03/04/17 08:02 Sodium Level 138 Potassium Level 3.9 Chloride Level 101 Carbon Dioxide Level 24 Anion Gap 17 H Blood Urea Nitrogen 38 H Creatinine 2.52 H Glucose Level 60 #L Lactic Acid Level 1.0 Calcium Level 8.1 L White Blood Count 10.7 Red Blood Count 3.41 L Hemoglobin 9.7 L Hematocrit 32.3 L Mean Corpuscular Volume 94.7 Mean Corpuscular Hemoglobin 28.4 L Mean Corpuscular Hemoglobin Concent 30.0 L Red Cell Distribution Width 16.8 H Platelet Count 120 L Mean Platelet Volume 9.9 Neutrophils % 63.6 Lymphocytes % 17.0 Monocytes % 16.7 H Eosinophils % 1.9 Basophils % 0.3 Nucleated Red Blood Cells % 0.0 Neutrophils # 6.8 Lymphocytes # 1.8 Monocytes # 1.8 H Eosinophils # 0.2 Basophils # 0.0 Nucleated Red Blood Cells # 0.0 Blood Gas Specimen Source Blood arterial Arterial Blood Date Drawn 03/04/2017 4:50:43 AM Arterial Blood pH (Temp corrected) 7.386 Arterial Blood pCO2 (Temp correct) 35.9 Arterial Blood pO2 (Temp corrected) 102.6 H Arterial Blood HCO3 21.0 L Arterial Blood Base Excess -3.4 L Arterial Blood Oxygen Saturation 97.6 Sly Test ACCEPTAB Arterial Blood Gas Puncture Site Right Radial Arterial Blood Carboxyhemoglobin 0.2 Arterial Blood Methemoglobin 0.2 Blood Gas A-a O2 Differential 141.3 H Oxyhemoglobin Percent 97.2 Total Hemoglobin 11.1 L Blood Gas Temperature 37.0 Blood Gas Respiration Rate 20.0 Blood Gas Actual Respiration Rate 20 Blood Gas Modality VENT - AC FiO2 40.0 Blood Gas Tidal Volume 500.0 Blood Gas Low PEEP Setting 5.0 Blood Gas Notified Whom UP Blood Gas Notified Time 03/04/2017 5:08:07 AM Bedside Glucose 62 L Test 03/04/17 08:32 Bedside Glucose 125 Medications Current Medications Acetaminophen (Tylenol Tab) 500 mg Q6H PRN PO PAIN AND OR ELEVATED TEMP; Start 03/01/17 at 13:30 Lidocaine (Lidocaine 5% Oint) 1 applic BID TOP Last administered on 03/04/17 08:36; Admin Dose 1 APPLIC; Start 03/01/17 at 21:00 Lidocaine (Lidoderm) 1 patch DAILY TD Last administered on 03/04/17 08:38; Admin Dose 1 PATCH; Start 03/02/17 at 09:00 Metolazone (Zaroxolyn) 2.5 mg DAILY PO Last administered on 03/04/17 08:37; Admin Dose 2.5 MG; Start 03/02/17 at 09:00 Oxycodone HCl (Roxicodone) 2.5 mg Q6H PRN PO PAIN; Start 03/01/17 at 13:30 Prednisone 5 mg 5 mg DAILY PO Last administered on 03/04/17 08:35; Admin Dose 5 MG; Start 03/02/17 at 09:00 Meropenem/Sodium Chloride 50 ml @ 100 mls/hr Q12 IVPB Last administered on 08:34; Admin Dose 100 MLS/HR; Start 03/01/17 at 15:30 Fluconazole/ Sodium Chloride (Diflucan 100 Mg/ NS (Pmx)) 50 ml @ 50 mls/hr Q24H IVPB Last administered on 03/04/17 16:18; Admin Dose 50 MLS/HR; Start at 16:30 Vancomycin HCl (Vanco Iv Per Pharmacy) PER PHARMACY DOSING NOTE XX ; Start 03/01 at 14:30 Eye Lubricant (Akwa Oint) 1 applic DAILY PRN RIGHT EYE ITCHING Last administered on 03/02/17 20:49; Admin Dose 1 APPLIC; Start 03/01/17 at 15:00 Bisacodyl (Dulcolax) 5 mg DAILY PRN PO CONSTIPATION; Start 03/01/17 at 15:00 Cyclosporine (Sandimmune) 25 mg BID PO Last administered on 03/04/17 08:37; Admin Dose 25 MG; Start 03/01/17 at 21:00 Doxazosin Mesylate (Cardura) 2 mg QHS PO Last administered on 03/02/17 20:49; Admin Dose 2 MG; Start 03/01/17 at 21:00 Fluticasone Propionate (Flonase 0.05% Nasal) 1 spray BID NASAL Last administered on 03/04/17 08:35; Admin Dose 1 SPRAY; Start 03/01/17 at 21:00 Midodrine (Proamatine) 2.5 mg DAILY PO Last administered on 03/04/17 08:37; Admin Dose 2.5 MG; Start 03/02/17 at 09:00 Senna/Docusate Sodium (Senokot-S) 1 tab QHS PRN PO CONSTIPATION; Start at 15:00 Thiamine HCl (Vitamin B1) 100 mg DAILY PO Last administered on 03/04/17 08:38 ; Admin Dose 100 MG; Start 03/02/17 at 09:00 Eye Lubricant 1 drop 1 drop Q4H PRN BOTH EYES ITCHING EYES; Start 03/01/17 at 15:30 Norepinephrine 16 mg/Dextrose 500 ml @ 0 mls/hr TITRATE IV Last administered on 03/04/17 03:51; Admin Dose 5.62 MLS/HR; Start 03/01/17 at 17:30 Propofol 100 ml @ 2.406 mls/ hr Q12H IV Last administered on 03/04/17 06:53; Admin Dose 12.03 MLS/HR; Start 03/01/17 at 19:30 Midazolam HCl (Versed) 50 ml @ 1 mls/hr TITRATE IV ; Start 03/01/17 at 19:30 Pantoprazole (Protonix Iv) 40 mg DAILY@06 IV Last administered on 03/04/17 06: 53; Admin Dose 40 MG; Start 03/04/17 at 06:00 Assessment/Plan Chief Complaint/Hosp Course 1. Acute on-chronic hypoxemic, hypercapnic respiratory failure, status post intubation, now on the ventilator. 2. Sick sinus syndrome, status post permanent pacemaker. 3. Atrial fibrillation with a slow ventricular response, heart rate under control with the pacemaker. 4. Septic shock: still on levophed rip 5. Pneumonia. 6. Anemia. 7. History of hepatitis C. 8. History of renal transplant. 9. Renal failure, status post hemodialysis. RECOMMENDATIONS: I will continue with the Levophed drip for now to control the blood pressure. will try to titrate off. Antibiotic is being managed as per Infectious Disease recommendations. off of Procardia due to hypotension. resume eliquis as long as no bleeding Antirejection medications as per Renal. Dialysis as per Renal. Ventilator support, respiratory care will be continued. Continue with the ICU care. THANK YOU ROLAND DORSEY MD LOCATED WITHIN [facility] . Problems: ROLAND DORSEY MD Mar 04, 2017 17:45
[2017-03-04] MEDS: DOXAZOSIN 2 MG TAB PO SCH (21:00)
[2017-03-04] MEDS: APIXABAN 5 MG TABLET PO SCH (21:46)
[2017-03-05] VITALS (89 sets, daily range): BP systolic 88–129; BP diastolic 51–86; PULSE 60–72; RESP 20–54
--- NOTE | 2017-03-05 03:25 | PN ---
DATE: 03/03/2017 INFECTIOUS DISEASE PROGRESS NOTE SUBJECTIVE: No acute changes. The patient remains intubated, sedated on pressors, looks comfortabl e. Afebrile. T-max 100.1, T-current 99.2, pulse 67, respirations 20, blood pressure 96/61, saturat ion 100% on vent. INDWELLINGS: Endotracheal tube, NG tube, right IJ Camacho catheter and left-sided permanent pacemak er and femoral line. ANTIMICROBIALS: The patient is on: 1. Vancomycin. 2. Merrem. 3. Fluconazole. PHYSICAL EXAMINATION: GENERAL: This is a chronically ill-appearing, elderly man who is in no distress. HEENT: Head atraumatic, normocephalic. Sclerae anicteric. Buccal mucosa dry. NECK: Supple, trachea midline. CHEST: Rise symmetrical. Breath sounds diminished to bases. HEART: S1, S2. ABDOMEN: Soft, bowel tones present. EXTREMITIES: Without cyanosis. Bilateral trace edema. ASSESSMENT: 1. Septic shock. 2. Aurora albicans urinary tract infection. 3. Pneumonia, possibly aspiration type. Culture of the sputum grew Aurora albicans on 03/01/2017. 4. Efrmw-rv-kwmriuo respiratory failure. 5. End-stage renal disease, hemodialysis dependent. 6. History of kidney transplant, on immunosuppressive therapy. 7. Coronary artery disease status post permanent pacemaker placed on 02/27/2017. 8. History of vancomycin-resistant enterococci stool colonization. PLAN: The patient remains hemodynamically unstable, covered with appropriate antimicrobials, follow ed by multiple consultants. Blood cultures on 03/01/2017 are negative. Continue present care. Dictated By: MYLA CHIU CASE SUPERVISOR for [facility] Conf#: [id number] DID#: [id number]
--- NOTE | 2017-03-05 03:25 | PN ---
DATE: 03/03/2017 INFECTIOUS DISEASE PROGRESS NOTE SUBJECTIVE: No acute changes. The patient remains intubated, sedated on pressors, looks comfortabl e. Afebrile. T-max 100.1, T-current 99.2, pulse 67, respirations 20, blood pressure 96/61, saturat ion 100% on vent. INDWELLINGS: Endotracheal tube, NG tube, right IJ Camacho catheter and left-sided permanent pacemak er and femoral line. ANTIMICROBIALS: The patient is on: 1. Vancomycin. 2. Merrem. 3. Fluconazole. PHYSICAL EXAMINATION: GENERAL: This is a chronically ill-appearing, elderly man who is in no distress. HEENT: Head atraumatic, normocephalic. Sclerae anicteric. Buccal mucosa dry. NECK: Supple, trachea midline. CHEST: Rise symmetrical. Breath sounds diminished to bases. HEART: S1, S2. ABDOMEN: Soft, bowel tones present. EXTREMITIES: Without cyanosis. Bilateral trace edema. ASSESSMENT: 1. Septic shock. 2. Aurora albicans urinary tract infection. 3. Pneumonia, possibly aspiration type. Culture of the sputum grew Aurora albicans on 03/01/2017. 4. Itpsx-tl-iflqiqt respiratory failure. 5. End-stage renal disease, hemodialysis dependent. 6. History of kidney transplant, on immunosuppressive therapy. 7. Coronary artery disease status post permanent pacemaker placed on 02/27/2017. 8. History of vancomycin-resistant enterococci stool colonization. PLAN: The patient remains hemodynamically unstable, covered with appropriate antimicrobials, follow ed by multiple consultants. Blood cultures on 03/01/2017 are negative. Continue present care. Dictated By: MYLA CHIU WILDLIFE FORENSIC GENETICIST for [facility] Conf#: [id number] DID#: [id number]
--- NOTE | 2017-03-05 03:25 | PN ---
DATE: 03/03/2017 INFECTIOUS DISEASE PROGRESS NOTE SUBJECTIVE: No acute changes. The patient remains intubated, sedated on pressors, looks comfortabl e. Afebrile. T-max 100.1, T-current 99.2, pulse 67, respirations 20, blood pressure 96/61, saturat ion 100% on vent. INDWELLINGS: Endotracheal tube, NG tube, right IJ Camacho catheter and left-sided permanent pacemak er and femoral line. ANTIMICROBIALS: The patient is on: 1. Vancomycin. 2. Merrem. 3. Fluconazole. PHYSICAL EXAMINATION: GENERAL: This is a chronically ill-appearing, elderly man who is in no distress. HEENT: Head atraumatic, normocephalic. Sclerae anicteric. Buccal mucosa dry. NECK: Supple, trachea midline. CHEST: Rise symmetrical. Breath sounds diminished to bases. HEART: S1, S2. ABDOMEN: Soft, bowel tones present. EXTREMITIES: Without cyanosis. Bilateral trace edema. ASSESSMENT: 1. Septic shock. 2. Aurora albicans urinary tract infection. 3. Pneumonia, possibly aspiration type. Culture of the sputum grew Aurora albicans on 03/01/2017. 4. Kmquq-ga-vjqyoyj respiratory failure. 5. End-stage renal disease, hemodialysis dependent. 6. History of kidney transplant, on immunosuppressive therapy. 7. Coronary artery disease status post permanent pacemaker placed on 02/27/2017. 8. History of vancomycin-resistant enterococci stool colonization. PLAN: The patient remains hemodynamically unstable, covered with appropriate antimicrobials, follow ed by multiple consultants. Blood cultures on 03/01/2017 are negative. Continue present care. Dictated By: MYLA CHIU FILTER PULP WASHER for [facility] Conf#: [id number] DID#: [id number]
[2017-03-05] MEDS: PANTOPRAZOLE 40 MG INJ IV SCH ×2 (06:00→07:23)
[2017-03-05] MEDS: FLUTICASONE 0.05% 16 GM NAS SPRAY NASAL SCH ×3 (07:40→20:21)
--- NOTE | 2017-03-05 08:40 | RADRPT ---
PROCEDURE: XR Chest. CLINICAL INDICATION: Ventilator patient. TECHNIQUE: Single frontal view of the chest was obtained. COMPARISON: Chest x-ray 03/04/2017 06:18 a.m. FINDINGS: An endotracheal tube is positioned 4.2 cm superior to the magdiel. An NG tube is noted distal to the GE junction. There is a suboptimal inspiratory effort. A dialysis catheter is identified entering fr om a right internal jugular approach with its tip in the proximal right atrium. There are degenerat usha osteophytes in the thoracic spine with a dextroscoliosis in the upper lumbar spine. The heart i s enlarged. The cardiomediastinal silhouette and hilar structures are normal. The pulmonary vasculat ure is equilibrated. There are vascular calcifications in the aortic arch. There are perihilar and basilar infiltrates obscuring both diaphragms. There are bilateral pleural effusions. A single pryor remy pacemaker is identified implanted over the upper left chest wall. There is deformity of the righ t humeral head. There are degenerative changes of the glenohumeral joints. These findings are unchan ged. IMPRESSION: 1. There has been no significant change when compared to 03/04/2017. RPTAT:AAJJ Physician Lindsey Date Time Electronically viewed and signed by Physician Lindsey on 03/05/2017 08:40 MATHEW/
[2017-03-05] MEDS: LIDOCAINE 5% PATCH TD SCH (09:25)
[2017-03-05] MEDS: CYCLOSPORINE 25 MG CAP PO SCH ×2 (09:25→20:21)
[2017-03-05] MEDS: predniSONE 5 MG TAB PO SCH (09:25)
[2017-03-05] MEDS: THIAMINE 100 MG TAB PO SCH (09:25)
[2017-03-05] MEDS: APIXABAN 5 MG TABLET PO SCH ×2 (09:26→20:21)
[2017-03-05] MEDS: MIDODRINE 5 MG TAB PO SCH (09:26)
[2017-03-05] MEDS: LIDOCAINE 5% 35 GM OINT TOP SCH ×2 (09:26→20:21)
--- NOTE | 2017-03-05 09:44 | PN ---
DATE: 03/04/2017 SUBJECTIVE: No acute events overnight. The patient is more awake. Looks comfortable on vent. Sti ll on Levophed drip but at 3 mcg per minute. No fevers. VITAL SIGNS: Temperature 98.5, pulse 64, respirations 27, blood pressure 99/62, saturation 97% on 3 0 FiO2. LABORATORY DATA: WBC 10.7, H and H of 9.7 and 32.3, platelets 120, neutrophils 63.6. ANTIMICROBIALS: The patient is on: 1. Vancomycin. 2. Fluconazole. 3. Meropenem. INDWELLINGS: Endotracheal tube, NG tube, femoral triple-lumen catheter, right chest PermCath. PHYSICAL EXAMINATION: GENERAL: Well developed, chronically ill appearing, elderly man who is in no distress. HEENT: Head atraumatic, normocephalic. Sclerae anicteric. Buccal mucosa dry. NECK: Supple. Trachea midline. CHEST: Rise symmetrical. Breath sounds clear, diminished to the bases. HEART: S1 and S2. ABDOMEN: Soft. Bowel tones present. EXTREMITIES: Without cyanosis. Bilateral lower extremities, trace edema. ASSESSMENT: 1. Septic shock. 2. Acute hypoxemic respiratory failure. 3. Aspiration pneumonia. 4. Aurora albicans urinary tract infection. 5. History of recent permanent pacemaker placement. 6. Chronic kidney disease, hemodialysis dependent. 7. History of kidney transplant. 8. Vancomycin-resistant enterococci stool colonization. PLAN: The patient remains unchanged, clinically stable, with less requirements for vasopressor supp ort. Continue present care. Vent management per Pulmonary. Dictated By: MYLA CHIU RN L AND D for [facility] Conf#: [id number] DID#: [id number] CC: PATRIA RICHARDS DO;*EndCC*
--- NOTE | 2017-03-05 09:44 | PN ---
DATE: 03/04/2017 SUBJECTIVE: No acute events overnight. The patient is more awake. Looks comfortable on vent. Sti ll on Levophed drip but at 3 mcg per minute. No fevers. VITAL SIGNS: Temperature 98.5, pulse 64, respirations 27, blood pressure 99/62, saturation 97% on 3 0 FiO2. LABORATORY DATA: WBC 10.7, H and H of 9.7 and 32.3, platelets 120, neutrophils 63.6. ANTIMICROBIALS: The patient is on: 1. Vancomycin. 2. Fluconazole. 3. Meropenem. INDWELLINGS: Endotracheal tube, NG tube, femoral triple-lumen catheter, right chest PermCath. PHYSICAL EXAMINATION: GENERAL: Well developed, chronically ill appearing, elderly man who is in no distress. HEENT: Head atraumatic, normocephalic. Sclerae anicteric. Buccal mucosa dry. NECK: Supple. Trachea midline. CHEST: Rise symmetrical. Breath sounds clear, diminished to the bases. HEART: S1 and S2. ABDOMEN: Soft. Bowel tones present. EXTREMITIES: Without cyanosis. Bilateral lower extremities, trace edema. ASSESSMENT: 1. Septic shock. 2. Acute hypoxemic respiratory failure. 3. Aspiration pneumonia. 4. Aurora albicans urinary tract infection. 5. History of recent permanent pacemaker placement. 6. Chronic kidney disease, hemodialysis dependent. 7. History of kidney transplant. 8. Vancomycin-resistant enterococci stool colonization. PLAN: The patient remains unchanged, clinically stable, with less requirements for vasopressor supp ort. Continue present care. Vent management per Pulmonary. Dictated By: MYLA CHIU DECK ENGINEER for [facility] Conf#: [id number] DID#: [id number] CC: PATRIA RICHARDS DO;*EndCC*
--- NOTE | 2017-03-05 09:44 | PN ---
DATE: 03/04/2017 SUBJECTIVE: No acute events overnight. The patient is more awake. Looks comfortable on vent. Sti ll on Levophed drip but at 3 mcg per minute. No fevers. VITAL SIGNS: Temperature 98.5, pulse 64, respirations 27, blood pressure 99/62, saturation 97% on 3 0 FiO2. LABORATORY DATA: WBC 10.7, H and H of 9.7 and 32.3, platelets 120, neutrophils 63.6. ANTIMICROBIALS: The patient is on: 1. Vancomycin. 2. Fluconazole. 3. Meropenem. INDWELLINGS: Endotracheal tube, NG tube, femoral triple-lumen catheter, right chest PermCath. PHYSICAL EXAMINATION: GENERAL: Well developed, chronically ill appearing, elderly man who is in no distress. HEENT: Head atraumatic, normocephalic. Sclerae anicteric. Buccal mucosa dry. NECK: Supple. Trachea midline. CHEST: Rise symmetrical. Breath sounds clear, diminished to the bases. HEART: S1 and S2. ABDOMEN: Soft. Bowel tones present. EXTREMITIES: Without cyanosis. Bilateral lower extremities, trace edema. ASSESSMENT: 1. Septic shock. 2. Acute hypoxemic respiratory failure. 3. Aspiration pneumonia. 4. Aurora albicans urinary tract infection. 5. History of recent permanent pacemaker placement. 6. Chronic kidney disease, hemodialysis dependent. 7. History of kidney transplant. 8. Vancomycin-resistant enterococci stool colonization. PLAN: The patient remains unchanged, clinically stable, with less requirements for vasopressor supp ort. Continue present care. Vent management per Pulmonary. Dictated By: MYLA CHIU COACH MECHANIC for [facility] Conf#: [id number] DID#: [id number] CC: PATRIA RICHARDS DO;*EndCC*
[2017-03-05] MEDS: IPRATROPIUM (HFA) 12.9 GM INHALER INH PRN ×2 (09:57→20:49)
[2017-03-05] MEDS: ALBUTEROL 18 GM INHALER INH PRN ×2 (09:57→20:49)
[2017-03-05] MEDS: ACETYLCYSTEINE 20% 4 ML VIAL NEB SCH ×2 (09:58→20:50)
[2017-03-05] MEDS: BISACODYL (EC) 5 MG TAB PO PRN (10:14)
[2017-03-05] MEDS: MEROPENEM 500MG/50 ML (PMX) 50 ML IVPB SCH ×2 (10:14→20:21)
[2017-03-05] MEDS: PROPOFOL 100 ML IV SCH ×2 (10:59→18:19)
[2017-03-05] MEDS ORDERED: POTASSIUM CHLORIDE 20 MEQ POWDER FOR ORAL SOLN NGT ONE (11:30)
--- NOTE | 2017-03-05 11:57 | CONS ---
Date/Time of Note Date/Time of Note DATE: 03/05/17 TIME: 11:53 Assessment/Plan Assessment/Plan Additional Assessment/Plan Ventilator setting; AC of 20, tidal volume 500, PEEP of 5, 30% FiO2. Patient currently on Levophed at 2 mics per minute. Off propofol. Chest x-ray was reviewed from today which is showing bilateral pneumonia. Pacemaker in left chest wall. Endotracheal tube is at an adequate level. Assessment and recommendations; 1. Patient admitted with bilateral pneumonia likely from aspiration. Currently on appropriate antibiotic coverage. 2. History of renal transplant on chronic immunosuppression. However requiring dialysis. 3. Anemia and thrombocytopenia. 4. History of recent pacemaker placement. 5. History of paroxysmal atrial flutter. 6. Mild persistent hypotension. Continue current supportive care. Patient currently not in a position to be extubated. We will switch him back to assist control mode and resume propofol. We will give another weaning trial in 24 hours. 35 minutes of critical care time was spent evaluating the patient. Consultation Date/Type/Reason Admit Date/Time Mar 01, 2017 at 13:35 Initial Consult Date 03/01/17 Type of Consultation: Pulmonary/critical care 24 HR Interval Summary Free Text/Dictation Patient's condition remains critical. Still requiring low-dose pressor support for hypotension. Patient remains awake and alert. And has been off sedation. Has been unable to tolerate any weaning from ventilator resulting in significant tachypnea whenever he switched over to CPAP mode. General exam; elderly male, awake, orally intubated, currently in no distress. Exam/Review of Systems Vital Signs Vitals Vital Signs Date Time Temp Pulse Resp B/P Pulse Ox O2 Delivery O2 Flow Rate FiO2 03/05/17 11:15 60 41 106/69 98 Mechanical Ventilator 03/05/17 09:55 30 03/05/17 08:00 100.5 Intake and Output 03/04/17 03/04/17 03/05/17 15:00 23:00 07:00 Intake Total 832.99 ml 528.111 ml 150.458 ml Output Total 2500 ml 0 ml Balance -1667.01 ml 528.111 ml 150.458 ml Exam HEENT exam; supple neck, positive JVD. No lymphadenopathy. Midline trachea. No thyromegaly. Patient has a multiple carious teeth. Has bilateral intraocular lens implants. Orally intubated. Chest exam; diminished breath sounds bilaterally. S1-S2 audible, no murmurs. Irregular rhythm. Abdomen exam; soft, no organomegaly. Bowel sounds audible. Nontender. There is a small reducible umbilical hernia present. Extremity exam; trace peripheral edema. Patient has a multiple ecchymosis involving all 4 extremities. 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 Results Result Diagram: 03/05/17 0500 03/05/17 0500 Results 24 hrs Laboratory Tests Test 03/05/17 04:57 03/05/17 05:00 03/05/17 08:02 Bedside Glucose 105 White Blood Count 7.8 # Red Blood Count 3.27 L Hemoglobin 9.2 L Hematocrit 30.8 L Mean Corpuscular Volume 94.2 Mean Corpuscular Hemoglobin 28.1 L Mean Corpuscular Hemoglobin Concent 29.9 L Red Cell Distribution Width 17.0 H Platelet Count 126 L Mean Platelet Volume 10.0 Neutrophils % 58.6 Lymphocytes % 22.0 Monocytes % 16.6 H Eosinophils % 2.1 Basophils % 0.3 Nucleated Red Blood Cells % 0.0 Neutrophils # 4.6 Lymphocytes # 1.7 Monocytes # 1.3 H Eosinophils # 0.2 Basophils # 0.0 Nucleated Red Blood Cells # 0.0 Sodium Level 142 Potassium Level 3.3 L Chloride Level 106 Carbon Dioxide Level 30 Anion Gap 9 # Blood Urea Nitrogen 32 H Creatinine 2.38 H Glucose Level 105 # Calcium Level 8.5 Blood Gas Specimen Source Blood arterial Arterial Blood Date Drawn 03/05/2017 5:40:00 AM Arterial Blood pH (Temp corrected) 7.426 Arterial Blood pCO2 (Temp correct) 40.3 Arterial Blood pO2 (Temp corrected) 92.6 Arterial Blood HCO3 25.9 Arterial Blood Base Excess 1.5 Arterial Blood Oxygen Saturation 97.3 Sly Test N/A Arterial Blood Gas Puncture Site Right Brachial Arterial Blood Carboxyhemoglobin 1.0 Arterial Blood Methemoglobin 0.1 Blood Gas A-a O2 Differential 74.0 H Oxyhemoglobin Percent 96.2 Total Hemoglobin 15.1 Blood Gas Temperature 37.0 Blood Gas Respiration Rate 20.0 Blood Gas Actual Respiration Rate 20 Blood Gas Modality VENT - AC FiO2 30.0 Blood Gas Tidal Volume 500.0 Blood Gas Low PEEP Setting 5.0 Blood Gas Notified Whom Blood Gas Notified Time 03/05/2017 6:18:00 AM Medications Medications Current Medications Acetaminophen (Tylenol Tab) 500 mg Q6H PRN PO PAIN AND OR ELEVATED TEMP; Start 03/01/17 at 13:30 Lidocaine (Lidocaine 5% Oint) 1 applic BID TOP Last administered on 03/05/17 09:26; Admin Dose 1 APPLIC; Start 03/01/17 at 21:00 Lidocaine (Lidoderm) 1 patch DAILY TD Last administered on 03/05/17 09:25; Admin Dose 1 PATCH; Start 03/02/17 at 09:00 Metolazone (Zaroxolyn) 2.5 mg DAILY PO Last administered on 03/04/17 08:37; Admin Dose 2.5 MG; Start 03/02/17 at 09:00 Oxycodone HCl (Roxicodone) 2.5 mg Q6H PRN PO PAIN; Start 03/01/17 at 13:30 Prednisone 5 mg 5 mg DAILY PO Last administered on 03/05/17 09:25; Admin Dose 5 MG; Start 03/02/17 at 09:00 Meropenem/Sodium Chloride 50 ml @ 100 mls/hr Q12 IVPB Last administered on 10:14; Admin Dose 100 MLS/HR; Start 03/01/17 at 15:30 Fluconazole/ Sodium Chloride (Diflucan 100 Mg/ NS (Pmx)) 50 ml @ 50 mls/hr Q24H IVPB Last administered on 03/04/17 16:18; Admin Dose 50 MLS/HR; Start at 16:30 Vancomycin HCl (Vanco Iv Per Pharmacy) PER PHARMACY DOSING NOTE XX ; Start 03/01 at 14:30 Eye Lubricant (Akwa Oint) 1 applic DAILY PRN RIGHT EYE ITCHING Last administered on 03/02/17 20:49; Admin Dose 1 APPLIC; Start 03/01/17 at 15:00 Bisacodyl (Dulcolax) 5 mg DAILY PRN PO CONSTIPATION Last administered on 10:14; Admin Dose 5 MG; Start 03/01/17 at 15:00 Cyclosporine (Sandimmune) 25 mg BID PO Last administered on 03/05/17 09:25; Admin Dose 25 MG; Start 03/01/17 at 21:00 Doxazosin Mesylate (Cardura) 2 mg QHS PO Last administered on 03/02/17 20:49; Admin Dose 2 MG; Start 03/01/17 at 21:00 Fluticasone Propionate (Flonase 0.05% Nasal) 1 spray BID NASAL Last administered on 03/05/17 09:26; Admin Dose 1 SPRAY; Start 03/01/17 at 21:00 Midodrine (Proamatine) 2.5 mg DAILY PO Last administered on 03/05/17 09:26; Admin Dose 2.5 MG; Start 03/02/17 at 09:00 Senna/Docusate Sodium (Senokot-S) 1 tab QHS PRN PO CONSTIPATION; Start at 15:00 Thiamine HCl (Vitamin B1) 100 mg DAILY PO Last administered on 03/05/17 09:25 ; Admin Dose 100 MG; Start 03/02/17 at 09:00 Eye Lubricant 1 drop 1 drop Q4H PRN BOTH EYES ITCHING EYES; Start 03/01/17 at 15:30 Norepinephrine 16 mg/Dextrose 500 ml @ 0 mls/hr TITRATE IV Last administered on 03/04/17 18:28; Admin Dose 3.75 MLS/HR; Start 03/01/17 at 17:30 Propofol 100 ml @ 2.406 mls/ hr Q12H IV Last administered on 03/05/17 10:59; Admin Dose 4.812 MLS/HR; Start 03/01/17 at 19:30 Midazolam HCl (Versed) 50 ml @ 1 mls/hr TITRATE IV ; Start 03/01/17 at 19:30 Apixaban (Eliquis) 2.5 mg BID PO Last administered on 03/05/17 09:26; Admin Dose 2.5 MG; Start 03/04/17 at 21:00 Lansoprazole (Prevacid) 30 mg DAILY@06 GTB ; Start 03/06/17 at 06:00 PAOLA RUIZ Mar 05, 2017 11:57
[2017-03-05] MEDS: METOLAZONE 2.5 MG TAB PO SCH (12:31)
--- NOTE | 2017-03-05 13:04 | PN ---
DATE: 03/05/2017 SUBJECTIVE: No acute events overnight. The patient is lying comfortably in bed. He is awake. Levophed is being titrating down. He is spiking low-grade fevers with a T-max current 100.5, pulse 60, respirations 30, blood pressure 106 /69, saturation 98% on vent. WBC 7.8, H and H 9.2 and 30.8, platelets 126, neutrophils 58.6. INDWELLINGS: The patient has endotracheal tube, NG tube, a right IJ Perm-A- Cath femoral line. DIAGNOSTICS: Chest x-ray this morning revealed no significant change compared to yesterday. ANTIMICROBIALS: 1. The patient is on IV vancomycin 2. Meropenem. 3. Fluconazole. PHYSICAL EXAMINATION: GENERAL: This is an obese, chronically ill-appearing, elderly man who is awake and follows commands. The patient is intubated. HEENT: Head atraumatic, normocephalic. Sclerae anicteric. Buccal mucosa dry. NECK: Supple. CHEST: Rise symmetrical. Breath sounds diminished to bases. HEART: S1, S2. ABDOMEN: Soft, bowel tones present. EXTREMITIES: Without cyanosis. ASSESSMENT: 1. Resolving sepsis. 2. Acute respiratory failure. 3. Aspiration pneumonia. 4. Aurora albicans urinary tract infection. 5. End-stage renal disease, hemodialysis dependent. 6. History of kidney transplant, remains on immunosuppressive therapy. 8. Atrial fibrillation with slow ventricular response, status post permanent pacemaker on 02/27/2017. 9. History of hepatitis C virus. 10. History of VRE stool colonization. PLAN: The patient remains clinically stable, still on Levophed drip, which is being titrated down. He is covered on appropriate antibiotics, failed weaning trial yesterday. Pulmonary on case. Dictated By: MYLA CHIU SANDWICH MAKER for [employer]EC[employer] Conf#: [id number] DID#: [id number] NANCI
--- NOTE | 2017-03-05 13:04 | PN ---
DATE: 03/05/2017 SUBJECTIVE: No acute events overnight. The patient is lying comfortably in bed. He is awake. Levophed is being titrating down. He is spiking low-grade fevers with a T-max current 100.5, pulse 60, respirations 30, blood pressure 106 /69, saturation 98% on vent. WBC 7.8, H and H 9.2 and 30.8, platelets 126, neutrophils 58.6. INDWELLINGS: The patient has endotracheal tube, NG tube, a right IJ Perm-A- Cath femoral line. DIAGNOSTICS: Chest x-ray this morning revealed no significant change compared to yesterday. ANTIMICROBIALS: 1. The patient is on IV vancomycin 2. Meropenem. 3. Fluconazole. PHYSICAL EXAMINATION: GENERAL: This is an obese, chronically ill-appearing, elderly man who is awake and follows commands. The patient is intubated. HEENT: Head atraumatic, normocephalic. Sclerae anicteric. Buccal mucosa dry. NECK: Supple. CHEST: Rise symmetrical. Breath sounds diminished to bases. HEART: S1, S2. ABDOMEN: Soft, bowel tones present. EXTREMITIES: Without cyanosis. ASSESSMENT: 1. Resolving sepsis. 2. Acute respiratory failure. 3. Aspiration pneumonia. 4. Aurora albicans urinary tract infection. 5. End-stage renal disease, hemodialysis dependent. 6. History of kidney transplant, remains on immunosuppressive therapy. 8. Atrial fibrillation with slow ventricular response, status post permanent pacemaker on 02/27/2017. 9. History of hepatitis C virus. 10. History of VRE stool colonization. PLAN: The patient remains clinically stable, still on Levophed drip, which is being titrated down. He is covered on appropriate antibiotics, failed weaning trial yesterday. Pulmonary on case. Dictated By: MYLA CHIU SEARCH MARKETING ANALYST for [employer] Conf#: [id number] DID#: [id number] NANCI
--- NOTE | 2017-03-05 13:04 | PN ---
DATE: 03/05/2017 SUBJECTIVE: No acute events overnight. The patient is lying comfortably in bed. He is awake. Levophed is being titrating down. He is spiking low-grade fevers with a T-max current 100.5, pulse 60, respirations 30, blood pressure 106 /69, saturation 98% on vent. WBC 7.8, H and H 9.2 and 30.8, platelets 126, neutrophils 58.6. INDWELLINGS: The patient has endotracheal tube, NG tube, a right IJ Perm-A- Cath femoral line. DIAGNOSTICS: Chest x-ray this morning revealed no significant change compared to yesterday. ANTIMICROBIALS: 1. The patient is on IV vancomycin 2. Meropenem. 3. Fluconazole. PHYSICAL EXAMINATION: GENERAL: This is an obese, chronically ill-appearing, elderly man who is awake and follows commands. The patient is intubated. HEENT: Head atraumatic, normocephalic. Sclerae anicteric. Buccal mucosa dry. NECK: Supple. CHEST: Rise symmetrical. Breath sounds diminished to bases. HEART: S1, S2. ABDOMEN: Soft, bowel tones present. EXTREMITIES: Without cyanosis. ASSESSMENT: 1. Resolving sepsis. 2. Acute respiratory failure. 3. Aspiration pneumonia. 4. Aurora albicans urinary tract infection. 5. End-stage renal disease, hemodialysis dependent. 6. History of kidney transplant, remains on immunosuppressive therapy. 8. Atrial fibrillation with slow ventricular response, status post permanent pacemaker on 02/27/2017. 9. History of hepatitis C virus. 10. History of VRE stool colonization. PLAN: The patient remains clinically stable, still on Levophed drip, which is being titrated down. He is covered on appropriate antibiotics, failed weaning trial yesterday. Pulmonary on case. Dictated By: MYLA CHIU FABRICATION MANAGER for [employer] Conf#: [id number] DID#: [id number] NANCI
--- NOTE | 2017-03-05 14:15 | PN ---
Date/Time of Note Date/Time of Note DATE: 03/05/17 TIME: 14:13 Assessment/Plan VTE Prophylaxis VTE Prophylaxis Intervention: other Lines/Catheters IV [facility] perma cath Urinary Cath still in place: No Assessment/Plan Chief Complaint/Hosp Course HISTORY OF PRESENT ILLNESS: This is a 66-year-old male with a long, complicated past medical history. 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 The patient's kidney function initially had improvement where he was able to be taken off dialysis. The patient, however, years later went back on dialysis. In 1985. The patient underwent cadaveric renal transplant that was complicated with 1 episode of rejection that resolved with steroids. The patient in 2016, early, had a knee replacement surgery [facility] which was complicated by seroma and another surgery of that knee. The patient was treated for pneumonia. He was then admitted to [facility] in 11/2016. At that time, the patient had concerns of possible renal artery stenosis. The patient unfortunately underwent a cardiac arrest after being given Dilaudid. He had PA at the time, a code blue was called. He received 4 rounds of compression, epinephrine and 3 amps of bicarbonate. The patient was then intubated, admitted to intensive care unit and extubated few days later. He was then transferred to [facility]. Please note, during his hospital stay, while in the intensive care unit, the patient was on continuous renal replacement therapy. While at [place], the patient has been receiving respiratory care by Pulmonology, has been seen by cardiology. During the course in [place], the patient was on intermittent hemodialysis due to episodes of hyperkalemia. The patient also noted to have arrhythmia and had a recent pacemaker placement by Dr. Rosas. The patient was noted to be in more serious respiratory distress, hyperkalemic, hypotensive and was transferred to the intensive care unit for continued care. While in intensive care unit, the patient had hemodialysis. Unfortunately, he required intubation and was placed on pressor support. Overnight, no other acute events noted. No hemoptysis, hematemesis or hematochezia. last HD was yesterday. hypotensive this morning. Also failed weaning MEDICATIONS: The patient's medications have been reviewed and reconciled. REVIEW OF SYSTEMS: A 14-point review of systems was conducted. Pertinent positives as obtained by reviewing medical records stated in HPI. PHYSICAL EXAMINATION: HEENT: Head is normocephalic, neck supple. CARDIOVASCULAR: Heart is regular rate, lungs show diminished breath sounds at the base. ABDOMEN: Soft, nontender to palpation without rebound or guarding. EXTREMITIES: Negative for clubbing, cyanosis. No trace edema. DERMATOLOGIC: No rashes. MUSCULOSKELETAL: No joint effusions. NEUROLOGIC: Limited exam as the patient is obtunded. time of jail: 41 min ASSESSMENT AND PLAN: This is a 66-year-old male who presents with: 1. acute Ventilator-dependent respiratory failure. Etiology is likely secondary to multifocal pneumonia and congestive heart failure. The patient's CT scan was reviewed. The patient was intubated due to persistent hypoxemia. Plan at this point is to continue to treat underlying pneumonia. Continue ultrafiltration with hemodialysis. 2. Septic shock secondary to pneumonia. The patient is currently on pressor support and IV antibiotics will continue. will continue with pulse steroid given history of adrenal insufficiency due to chronic steroid use 3. 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 The patient is currently dialysis dependent. He will receive intermittent hemodialysis as necessary. Will continue to monitor for any signs of recovery. 4. 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 The patient is currently in acute kidney injury as stated above, will continue current treatment plan as stated above. Continue current immunosuppressive regimen. 5. History of arrhythmia, status post pacemaker placement. Follow up with cardiology. 6. Anemia. Monitor H and H levels. 7. Mineral bone disorder. Monitor calcium and phosphorus levels. 8. Acute encephalopathy toxic metabolic. Continue to monitor. 9. Gastrointestinal and deep venous thrombosis prophylaxis. 10. History of hepatitis C. 11. Severe debility. 12. History of osteoarthritis. 13. History of gout. Problems: Exam/Review of Systems Vital Signs Vitals Vital Signs Date Time Temp Pulse Resp B/P Pulse Ox O2 Delivery O2 Flow Rate FiO2 03/05/17 13:45 60 21 107/68 100 Mechanical Ventilator 03/05/17 13:04 30 03/05/17 12:00 99.8 Intake and Output 03/04/17 03/04/17 03/05/17 15:00 23:00 07:00 Intake Total 832.99 ml 528.111 ml 150.458 ml Output Total 2500 ml 0 ml Balance -1667.01 ml 528.111 ml 150.458 ml Results Result Diagram: 03/05/17 0500 03/05/17 0500 Results 24 hrs Laboratory Tests Test 03/05/17 04:57 03/05/17 05:00 03/05/17 08:02 Bedside Glucose 105 White Blood Count 7.8 # Red Blood Count 3.27 L Hemoglobin 9.2 L Hematocrit 30.8 L Mean Corpuscular Volume 94.2 Mean Corpuscular Hemoglobin 28.1 L Mean Corpuscular Hemoglobin Concent 29.9 L Red Cell Distribution Width 17.0 H Platelet Count 126 L Mean Platelet Volume 10.0 Neutrophils % 58.6 Lymphocytes % 22.0 Monocytes % 16.6 H Eosinophils % 2.1 Basophils % 0.3 Nucleated Red Blood Cells % 0.0 Neutrophils # 4.6 Lymphocytes # 1.7 Monocytes # 1.3 H Eosinophils # 0.2 Basophils # 0.0 Nucleated Red Blood Cells # 0.0 Sodium Level 142 Potassium Level 3.3 L Chloride Level 106 Carbon Dioxide Level 30 Anion Gap 9 # Blood Urea Nitrogen 32 H Creatinine 2.38 H Glucose Level 105 # Calcium Level 8.5 Blood Gas Specimen Source Blood arterial Arterial Blood Date Drawn 03/05/2017 5:40:00 AM Arterial Blood pH (Temp corrected) 7.426 Arterial Blood pCO2 (Temp correct) 40.3 Arterial Blood pO2 (Temp corrected) 92.6 Arterial Blood HCO3 25.9 Arterial Blood Base Excess 1.5 Arterial Blood Oxygen Saturation 97.3 Sly Test N/A Arterial Blood Gas Puncture Site Right Brachial Arterial Blood Carboxyhemoglobin 1.0 Arterial Blood Methemoglobin 0.1 Blood Gas A-a O2 Differential 74.0 H Oxyhemoglobin Percent 96.2 Total Hemoglobin 15.1 Blood Gas Temperature 37.0 Blood Gas Respiration Rate 20.0 Blood Gas Actual Respiration Rate 20 Blood Gas Modality VENT - AC FiO2 30.0 Blood Gas Tidal Volume 500.0 Blood Gas Low PEEP Setting 5.0 Blood Gas Notified Whom Blood Gas Notified Time 03/05/2017 6:18:00 AM Medications Medications Current Medications Acetaminophen (Tylenol Tab) 500 mg Q6H PRN PO PAIN AND OR ELEVATED TEMP; Start 03/01/17 at 13:30 Lidocaine (Lidocaine 5% Oint) 1 applic BID TOP Last administered on 03/05/17t 09:26; Admin Dose 1 APPLIC; Start 03/01/17 at 21:00 Lidocaine (Lidoderm) 1 patch DAILY TD Last administered on 03/05/17 09:25; Admin Dose 1 PATCH; Start 03/02/17 at 09:00 Metolazone (Zaroxolyn) 2.5 mg DAILY PO Last administered on 03/05/17 12:31; Admin Dose 2.5 MG; Start 03/02/17 at 09:00 Oxycodone HCl (Roxicodone) 2.5 mg Q6H PRN PO PAIN; Start 03/01/17 at 13:30 Prednisone 5 mg 5 mg DAILY PO Last administered on 03/05/17 09:25; Admin Dose 5 MG; Start 03/02/17 at 09:00 Meropenem/Sodium Chloride 50 ml @ 100 mls/hr Q12 IVPB Last administered on 10:14; Admin Dose 100 MLS/HR; Start 03/01/17 at 15:30 Fluconazole/ Sodium Chloride (Diflucan 100 Mg/ NS (Pmx)) 50 ml @ 50 mls/hr Q24H IVPB Last administered on 03/04/17 16:18; Admin Dose 50 MLS/HR; Start at 16:30 Vancomycin HCl (Vanco Iv Per Pharmacy) PER PHARMACY DOSING NOTE XX ; Start 03/01 at 14:30 Eye Lubricant (Akwa Oint) 1 applic DAILY PRN RIGHT EYE ITCHING Last administered on 03/02/17 20:49; Admin Dose 1 APPLIC; Start 03/01/17 at 15:00 Bisacodyl (Dulcolax) 5 mg DAILY PRN PO CONSTIPATION Last administered on 10:14; Admin Dose 5 MG; Start 03/01/17 at 15:00 Cyclosporine (Sandimmune) 25 mg BID PO Last administered on 03/05/17 09:25; Admin Dose 25 MG; Start 03/01/17 at 21:00 Doxazosin Mesylate (Cardura) 2 mg QHS PO Last administered on 03/02/17 20:49; Admin Dose 2 MG; Start 03/01/17 at 21:00 Fluticasone Propionate (Flonase 0.05% Nasal) 1 spray BID NASAL Last administered on 03/05/17 09:26; Admin Dose 1 SPRAY; Start 03/01/17 at 21:00 Midodrine (Proamatine) 2.5 mg DAILY PO Last administered on 03/05/17 09:26; Admin Dose 2.5 MG; Start 03/02/17 at 09:00 Senna/Docusate Sodium (Senokot-S) 1 tab QHS PRN PO CONSTIPATION; Start at 15:00 Thiamine HCl (Vitamin B1) 100 mg DAILY PO Last administered on 03/05/17 09:25 ; Admin Dose 100 MG; Start 03/02/17 at 09:00 Eye Lubricant 1 drop 1 drop Q4H PRN BOTH EYES ITCHING EYES; Start 03/01/17 at 15:30 Norepinephrine 16 mg/Dextrose 500 ml @ 0 mls/hr TITRATE IV Last administered on 03/04/17 18:28; Admin Dose 3.75 MLS/HR; Start 03/01/17 at 17:30 Propofol 100 ml @ 2.406 mls/ hr Q12H IV Last administered on 03/05/17 10:59; Admin Dose 4.812 MLS/HR; Start 03/01/17 at 19:30 Midazolam HCl (Versed) 50 ml @ 1 mls/hr TITRATE IV ; Start 03/01/17 at 19:30 Apixaban (Eliquis) 2.5 mg BID PO Last administered on 03/05/17 09:26; Admin Dose 2.5 MG; Start 03/04/17 at 21:00 Lansoprazole (Prevacid) 30 mg DAILY@06 GTB ; Start 03/06/17 at 06:00 Miscellaneous Information (*Rx Drug Level Order Reminder*) RANDOM VANCOMYCIN LEVEL ... ONCE ONCE XX ; Start 03/06/17 at 05:00; Stop 03/06/17 at 05:01 REX FORREST DO Mar 05, 2017 14:15
[2017-03-05] MEDS ORDERED: MINERAL OIL 133 ML ENEMA PR ONE (14:30)
[2017-03-05] MEDS: HYDROCORTISONE 100 MG INJ IV SCH ×2 (14:58→22:10)
[2017-03-05] MEDS: ARTIFICIAL TEARS 15 ML OPH BOTH EYES PRN (15:00)
[2017-03-05] MEDS: OCULAR LUBRICANT 3.5 GM OPH OINT RIGHT EYE PRN (15:01)
[2017-03-05] MEDS: FLUCONAZOLE 100 MG/NS (PMX) 50 ML IVPB SCH (16:06)
--- NOTE | 2017-03-05 17:17 | CONS ---
Date/Time of Note Date/Time of Note DATE: 03/05/17 TIME: 17:15 Consult Date/Type/Reason Admit Date/Time Mar 01, 2017 at 13:35 Initial Consult Date 03/01/17 Type of Consultation: CARDIOLOGY Subjective CARDIOLOGY FOLLOW UP NOTE: S: Discussed with staff and rhythm strip is reviewed. Patient remains in demand ventricular pacemaker. Patient is still on the vent in ICU. He is off of Levophed drip He is sedated and nonverbal at this point. pt with short run of NSVT. O: General: thin man, s/p trach on vent. HEENT: NC/AT. . NECK: . no stridor. CV: RRR. systolic murmur; no gallop or rubs. chest: s/p left sided PPM, no hematoma or bleeding PULM: no wheezing + diffuse rhonchi. GI: SOFT, NT, ND, no rebound or guarding Extremity:+ B/L LE edema. no clubbing. neuro: sedated. Psych: calm and pleasant rectal: deferred : normal Objective Vital Signs Date Time Temp Pulse Resp B/P Pulse Ox O2 Delivery O2 Flow Rate FiO2 03/05/17 17:11 60 20 100 30 03/05/17 13:45 107/68 Mechanical Ventilator 03/05/17 12:00 99.8 Intake and Output 03/04/17 03/04/17 03/05/17 15:00 23:00 07:00 Intake Total 832.99 ml 528.111 ml 150.458 ml Output Total 2500 ml 0 ml Balance -1667.01 ml 528.111 ml 150.458 ml Results/Medications Result Diagram: 03/05/17 0500 03/05/17 0500 Results 24 hrs Laboratory Tests Test 03/05/17 04:57 03/05/17 05:00 03/05/17 08:02 Bedside Glucose 105 White Blood Count 7.8 # Red Blood Count 3.27 L Hemoglobin 9.2 L Hematocrit 30.8 L Mean Corpuscular Volume 94.2 Mean Corpuscular Hemoglobin 28.1 L Mean Corpuscular Hemoglobin Concent 29.9 L Red Cell Distribution Width 17.0 H Platelet Count 126 L Mean Platelet Volume 10.0 Neutrophils % 58.6 Lymphocytes % 22.0 Monocytes % 16.6 H Eosinophils % 2.1 Basophils % 0.3 Nucleated Red Blood Cells % 0.0 Neutrophils # 4.6 Lymphocytes # 1.7 Monocytes # 1.3 H Eosinophils # 0.2 Basophils # 0.0 Nucleated Red Blood Cells # 0.0 Sodium Level 142 Potassium Level 3.3 L Chloride Level 106 Carbon Dioxide Level 30 Anion Gap 9 # Blood Urea Nitrogen 32 H Creatinine 2.38 H Glucose Level 105 # Calcium Level 8.5 Blood Gas Specimen Source Blood arterial Arterial Blood Date Drawn 03/05/2017 5:40:00 AM Arterial Blood pH (Temp corrected) 7.426 Arterial Blood pCO2 (Temp correct) 40.3 Arterial Blood pO2 (Temp corrected) 92.6 Arterial Blood HCO3 25.9 Arterial Blood Base Excess 1.5 Arterial Blood Oxygen Saturation 97.3 Sly Test N/A Arterial Blood Gas Puncture Site Right Brachial Arterial Blood Carboxyhemoglobin 1.0 Arterial Blood Methemoglobin 0.1 Blood Gas A-a O2 Differential 74.0 H Oxyhemoglobin Percent 96.2 Total Hemoglobin 15.1 Blood Gas Temperature 37.0 Blood Gas Respiration Rate 20.0 Blood Gas Actual Respiration Rate 20 Blood Gas Modality VENT - AC FiO2 30.0 Blood Gas Tidal Volume 500.0 Blood Gas Low PEEP Setting 5.0 Blood Gas Notified Whom Blood Gas Notified Time 03/05/2017 6:18:00 AM Medications Current Medications Acetaminophen (Tylenol Tab) 500 mg Q6H PRN PO PAIN AND OR ELEVATED TEMP; Start 03/01/17 at 13:30 Lidocaine (Lidocaine 5% Oint) 1 applic BID TOP Last administered on 03/05/17 09:26; Admin Dose 1 APPLIC; Start 03/01/17 at 21:00 Lidocaine (Lidoderm) 1 patch DAILY TD Last administered on 03/05/17 09:25; Admin Dose 1 PATCH; Start 03/02/17 at 09:00 Metolazone (Zaroxolyn) 2.5 mg DAILY PO Last administered on 03/05/17 12:31; Admin Dose 2.5 MG; Start 03/02/17 at 09:00 Oxycodone HCl (Roxicodone) 2.5 mg Q6H PRN PO PAIN; Start 03/01/17 at 13:30 Prednisone 5 mg 5 mg DAILY PO Last administered on 03/05/17 09:25; Admin Dose 5 MG; Start 03/02/17 at 09:00 Meropenem/Sodium Chloride 50 ml @ 100 mls/hr Q12 IVPB Last administered on 10:14; Admin Dose 100 MLS/HR; Start 03/01/17 at 15:30 Fluconazole/ Sodium Chloride (Diflucan 100 Mg/ NS (Pmx)) 50 ml @ 50 mls/hr Q24H IVPB Last administered on 03/05/17 16:06; Admin Dose 50 MLS/HR; Start at 16:30 Vancomycin HCl (Vanco Iv Per Pharmacy) PER PHARMACY DOSING NOTE XX ; Start 03/01 at 14:30 Eye Lubricant (Akwa Oint) 1 applic DAILY PRN RIGHT EYE ITCHING Last administered on 03/05/17 15:01; Admin Dose 1 APPLIC; Start 03/01/17 at 15:00 Bisacodyl (Dulcolax) 5 mg DAILY PRN PO CONSTIPATION Last administered on 10:14; Admin Dose 5 MG; Start 03/01/17 at 15:00 Cyclosporine (Sandimmune) 25 mg BID PO Last administered on 03/05/17 09:25; Admin Dose 25 MG; Start 03/01/17 at 21:00 Doxazosin Mesylate (Cardura) 2 mg QHS PO Last administered on 03/02/17 20:49; Admin Dose 2 MG; Start 03/01/17 at 21:00 Fluticasone Propionate (Flonase 0.05% Nasal) 1 spray BID NASAL Last administered on 03/05/17 09:26; Admin Dose 1 SPRAY; Start 03/01/17 at 21:00 Midodrine (Proamatine) 2.5 mg DAILY PO Last administered on 03/05/17 09:26; Admin Dose 2.5 MG; Start 03/02/17 at 09:00 Senna/Docusate Sodium (Senokot-S) 1 tab QHS PRN PO CONSTIPATION; Start at 15:00 Thiamine HCl (Vitamin B1) 100 mg DAILY PO Last administered on 03/05/17 09:25 ; Admin Dose 100 MG; Start 03/02/17 at 09:00 Eye Lubricant 1 drop 1 drop Q4H PRN BOTH EYES ITCHING EYES Last administered on 03/05/17 15:00; Admin Dose 1 DROP; Start 03/01/17 at 15:30 Norepinephrine 16 mg/Dextrose 500 ml @ 0 mls/hr TITRATE IV Last administered on 03/04/17 18:28; Admin Dose 3.75 MLS/HR; Start 03/01/17 at 17:30 Propofol 100 ml @ 2.406 mls/ hr Q12H IV Last administered on 03/05/17 10:59; Admin Dose 4.812 MLS/HR; Start 03/01/17 at 19:30 Midazolam HCl (Versed) 50 ml @ 1 mls/hr TITRATE IV ; Start 03/01/17 at 19:30 Apixaban (Eliquis) 2.5 mg BID PO Last administered on 03/05/17 09:26; Admin Dose 2.5 MG; Start 03/04/17 at 21:00 Lansoprazole (Prevacid) 30 mg DAILY@06 GTB ; Start 03/06/17 at 06:00 Miscellaneous Information (*Rx Drug Level Order Reminder*) RANDOM VANCOMYCIN LEVEL ... ONCE ONCE XX ; Start 03/06/17 at 05:00; Stop 03/06/17 at 05:01 Hydrocortisone (Solu-Cortef) 50 mg Q8 IV Last administered on 03/05/17 14:58; Admin Dose 50 MG; Start 03/05/17 at 14:30 Assessment/Plan Chief Complaint/Hosp Course 1. Acute on-chronic hypoxemic, hypercapnic respiratory failure, status post intubation, now on the ventilator. 2. Sick sinus syndrome, status post permanent pacemaker. 3. Atrial fibrillation with a slow ventricular response, heart rate under control with the pacemaker. 4. Septic shock: still on levophed rip 5. Pneumonia. 6. Anemia. 7. History of hepatitis C. 8. History of renal transplant. 9. Renal failure, status post hemodialysis. 10. NSVT RECOMMENDATIONS: Antibiotic is being managed as per Infectious Disease recommendations. off of Procardia due to hypotension. Cont eliquis as long as no bleeding Antirejection medications as per Renal. Dialysis as per Renal. replace lytes Ventilator support, respiratory care will be continued. Continue with the ICU care. THANK YOU ROLAND DORSEY MD [facility] . Problems: ROLAND DORSEY MD Mar 05, 2017 17:17
[2017-03-05] MEDS: DOXAZOSIN 2 MG TAB PO SCH (20:21)
[2017-03-06] VITALS (55 sets, daily range): BP systolic 96–142; BP diastolic 63–109; PULSE 60–79; RESP 20–63
[2017-03-06] MEDS: PROPOFOL 100 ML IV SCH ×3 (04:32→21:34)
[2017-03-06] MEDS: LANSOPRAZOLE 30 MG CAP GTB SCH (05:02)
[2017-03-06] MEDS: HYDROCORTISONE 100 MG INJ IV SCH ×3 (05:02→21:13)
[2017-03-06] MEDS: METOLAZONE 2.5 MG TAB PO SCH (08:56)
[2017-03-06] MEDS: MIDODRINE 5 MG TAB PO SCH (09:03)
[2017-03-06] MEDS: THIAMINE 100 MG TAB PO SCH (09:03)
[2017-03-06] MEDS: APIXABAN 5 MG TABLET PO SCH ×2 (09:03→21:13)
[2017-03-06] MEDS: CYCLOSPORINE 25 MG CAP PO SCH ×2 (09:03→21:13)
[2017-03-06] MEDS: predniSONE 5 MG TAB PO SCH (09:03)
[2017-03-06] MEDS: LIDOCAINE 5% 35 GM OINT TOP SCH ×2 (09:04→21:14)
[2017-03-06] MEDS: FLUTICASONE 0.05% 16 GM NAS SPRAY NASAL SCH ×2 (09:04→21:14)
[2017-03-06] MEDS: LIDOCAINE 5% PATCH TD SCH (09:05)
[2017-03-06] MEDS: ACETYLCYSTEINE 20% 4 ML VIAL NEB SCH ×2 (10:17→20:17)
[2017-03-06] MEDS: ALBUTEROL 18 GM INHALER INH PRN ×2 (10:18→19:46)
[2017-03-06] MEDS: IPRATROPIUM (HFA) 12.9 GM INHALER INH PRN ×2 (10:18→19:45)
--- NOTE | 2017-03-06 10:42 | CONS ---
Date/Time of Note Date/Time of Note DATE: 03/06/17 TIME: 10:36 Assessment/Plan Assessment/Plan Additional Assessment/Plan Ventilator setting; AC of 20, tidal volume 500, PEEP of 5, 30% FiO2. Patient currently on propofol at 20 mics per kilogram per minute. Assessment and recommendations; 1. Patient admitted with bilateral pneumonia. Currently on appropriate antibiotic regimen. There has been significant radiological improvement , however patient has not been able to be extubated. 2. Chronic renal failure, on hemodialysis. 3. History of renal transplant, on chronic immunosuppression. 4. Mild anemia and thrombocytopenia. 5. History of recent pacemaker placement. Hold sedation. Once the patient is off sedation he will be evaluated for possible extubation. Meanwhile continue current supportive care. Consultation Date/Type/Reason Admit Date/Time Mar 01, 2017 at 13:35 Initial Consult Date 03/01/17 Type of Consultation: Pulmonary/critical care 24 HR Interval Summary Free Text/Dictation Patient's condition remains critical. Patient has been given multiple weaning trials from ventilator and the patient has been unable to be extubated due to poor weaning parameters. Patient however has improved hemodynamically and is now currently off pressor support. General exam; elderly male, orally intubated, sedated, currently in no distress. Exam/Review of Systems Vital Signs Vitals Vital Signs Date Time Temp Pulse Resp B/P Pulse Ox O2 Delivery O2 Flow Rate FiO2 03/06/17 09:00 60 31 121/78 100 Mechanical Ventilator 03/06/17 08:00 98.4 03/06/17 05:50 30 Intake and Output 03/05/17 03/05/17 03/06/17 15:00 23:00 07:00 Intake Total 306.18 ml 596.920 ml 537.744 ml Balance 306.18 ml 596.920 ml 537.744 ml Exam HEENT exam; supple neck, no JVD. No lymphadenopathy. Midline trachea. No thyromegaly. Orally intubated. Patient has a multiple carious teeth. Bilateral intraocular lens implants are present. Next Chest exam; diminished breath sounds bilaterally. S1-S2 audible, no murmurs. Regular rhythm. Abdomen exam; soft, non-distended. No organomegaly. There is a small reducible umbilical hernia present. Bowel sounds audible. Extremity exam; trace edema. Patient has a multiple ecchymosis involving all 4 extremities. 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 Results Result Diagram: 03/06/17 0400 03/06/17 0400 Results 24 hrs Laboratory Tests Test 03/06/17 04:00 White Blood Count 5.0 # Red Blood Count 3.39 L Hemoglobin 9.5 L Hematocrit 32.5 L Mean Corpuscular Volume 95.9 Mean Corpuscular Hemoglobin 28.0 L Mean Corpuscular Hemoglobin Concent 29.2 L Red Cell Distribution Width 16.4 H Platelet Count 136 L Mean Platelet Volume 10.1 Neutrophils % 77.1 H Lymphocytes % 15.7 Monocytes % 6.4 Eosinophils % 0.0 Basophils % 0.2 Nucleated Red Blood Cells % 0.0 Neutrophils # 3.9 Lymphocytes # 0.8 Monocytes # 0.3 Eosinophils # 0.0 Basophils # 0.0 Nucleated Red Blood Cells # 0.0 Sodium Level 144 Potassium Level 5.0 Chloride Level 107 Carbon Dioxide Level 27 Anion Gap 15 Blood Urea Nitrogen 48 #H Creatinine 3.05 H Glucose Level 173 Calcium Level 8.5 Phosphorus Level 5.1 H Magnesium Level 2.1 Random Vancomycin Level 14.4 Medications Medications Current Medications Acetaminophen (Tylenol Tab) 500 mg Q6H PRN PO PAIN AND OR ELEVATED TEMP; Start 03/01/17 at 13:30 Lidocaine (Lidocaine 5% Oint) 1 applic BID TOP Last administered on 03/06/17 09:04; Admin Dose 1 APPLIC; Start 03/01/17 at 21:00 Lidocaine (Lidoderm) 1 patch DAILY TD Last administered on 03/06/17 09:05; Admin Dose 1 PATCH; Start 03/02/17 at 09:00 Metolazone (Zaroxolyn) 2.5 mg DAILY PO Last administered on 03/05/17 12:31; Admin Dose 2.5 MG; Start 03/02/17 at 09:00 Oxycodone HCl (Roxicodone) 2.5 mg Q6H PRN PO PAIN; Start 03/01/17 at 13:30 Prednisone 5 mg 5 mg DAILY PO Last administered on 03/06/17 09:03; Admin Dose 5 MG; Start 03/02/17 at 09:00 Fluconazole/ Sodium Chloride (Diflucan 100 Mg/ NS (Pmx)) 50 ml @ 50 mls/hr Q24H IVPB Last administered on 03/05/17 16:06; Admin Dose 50 MLS/HR; Start at 16:30 Vancomycin HCl (Vanco Iv Per Pharmacy) PER PHARMACY DOSING NOTE XX ; Start 03/01 at 14:30 Eye Lubricant (Akwa Oint) 1 applic DAILY PRN RIGHT EYE ITCHING Last administered on 03/05/17 15:01; Admin Dose 1 APPLIC; Start 03/01/17 at 15:00 Bisacodyl (Dulcolax) 5 mg DAILY PRN PO CONSTIPATION Last administered on 10:14; Admin Dose 5 MG; Start 03/01/17 at 15:00 Cyclosporine (Sandimmune) 25 mg BID PO Last administered on 03/06/17 09:03; Admin Dose 25 MG; Start 03/01/17 at 21:00 Doxazosin Mesylate (Cardura) 2 mg QHS PO Last administered on 03/02/17 20:49; Admin Dose 2 MG; Start 03/01/17 at 21:00 Fluticasone Propionate (Flonase 0.05% Nasal) 1 spray BID NASAL Last administered on 03/06/17 09:04; Admin Dose 1 SPRAY; Start 03/01/17 at 21:00 Midodrine (Proamatine) 2.5 mg DAILY PO Last administered on 03/06/17 09:03; Admin Dose 2.5 MG; Start 03/02/17 at 09:00 Senna/Docusate Sodium (Senokot-S) 1 tab QHS PRN PO CONSTIPATION; Start at 15:00 Thiamine HCl (Vitamin B1) 100 mg DAILY PO Last administered on 03/06/17 09:03 ; Admin Dose 100 MG; Start 03/02/17 at 09:00 Eye Lubricant 1 drop 1 drop Q4H PRN BOTH EYES ITCHING EYES Last administered on 03/05/17 15:00; Admin Dose 1 DROP; Start 03/01/17 at 15:30 Norepinephrine 16 mg/Dextrose 500 ml @ 0 mls/hr TITRATE IV Last administered on 03/04/17 18:28; Admin Dose 3.75 MLS/HR; Start 03/01/17 at 17:30 Propofol 100 ml @ 2.406 mls/ hr Q12H IV Last administered on 03/06/17 04:32 ; Admin Dose 9.624 MLS/HR; Start 03/01/17 at 19:30 Midazolam HCl (Versed) 50 ml @ 1 mls/hr TITRATE IV ; Start 03/01/17 at 19:30 Apixaban (Eliquis) 2.5 mg BID PO Last administered on 03/06/17 09:03; Admin Dose 2.5 MG; Start 03/04/17 at 21:00 Lansoprazole (Prevacid) 30 mg DAILY@06 GTB Last administered on 03/06/17 05: 02; Admin Dose 30 MG; Start 03/06/17 at 06:00 Hydrocortisone 50 mg 50 mg Q8 IV Last administered on 03/06/17 05:02; Admin Dose 50 MG; Start 03/05/17 at 14:30 Meropenem/Sodium Chloride 50 ml @ 100 mls/hr Q24H IVPB ; Start 03/06/17 at 21: 00 Vancomycin HCl (Vancocin) 250 ml @ 125 mls/hr ONCE ONCE IVPB ; Start at 16:00; Stop 03/06/17 at 17:59 PAOLA RUIZ Mar 06, 2017 10:42
--- NOTE | 2017-03-06 14:49 | PN ---
DATE: 03/06/2017 SUBJECTIVE: No acute changes. The patient is off pressors, intubated, in no distress. No fevers. VITAL SIGNS: Temperature 98.4, pulse 62, respirations 30, blood pressure 130/79, saturation 99% on vent. WBC 5, H and H 9.5 and 32.5, platelets 136. BUN 77.1. INDWELLINGS: Femoral triple lumen catheter, right IJ Perm-A-Cath, endotracheal tube, NG tube. ANTIMICROBIALS: 1. Vancomycin. 2. Merrem. 3. Fluconazole. PHYSICAL EXAMINATION: GENERAL: This is a well-developed, fragile, elderly man who is intubated, in no distress. HEENT: Head atraumatic, normocephalic. Sclerae anicteric. Buccal mucosa dry. NECK: Supple. CHEST: Rise symmetrical. Breath sounds diminished to bases. HEART: S1, S2. ABDOMEN: Soft, bowel tones present. EXTREMITIES: Without cyanosis. ASSESSMENT: 1. Resolving sepsis status post shock. 2. Bilateral pneumonia, likely aspiration. 3. Status post permanent pacemaker placement on 02/27/2017. 4. End-stage renal disease. 5. History of kidney transplant. 6. History of VRE stool colonization. 7. Status post Aurora albicans urinary tract infection. PLAN: The patient remains stable, started on steroids. He is off pressors. Continue present care. Continue on current antibiotics. Dictated By: MYLA CHIU SUPERINTENDENT OPERATIONS DIVISION for VIC COX MD NI/NTS Conf#: [id number] DID#: [id number]
--- NOTE | 2017-03-06 14:49 | PN ---
DATE: 03/06/2017 SUBJECTIVE: No acute changes. The patient is off pressors, intubated, in no distress. No fevers. VITAL SIGNS: Temperature 98.4, pulse 62, respirations 30, blood pressure 130/79, saturation 99% on vent. WBC 5, H and H 9.5 and 32.5, platelets 136. BUN 77.1. INDWELLINGS: Femoral triple lumen catheter, right IJ Perm-A-Cath, endotracheal tube, NG tube. ANTIMICROBIALS: 1. Vancomycin. 2. Merrem. 3. Fluconazole. PHYSICAL EXAMINATION: GENERAL: This is a well-developed, fragile, elderly man who is intubated, in no distress. HEENT: Head atraumatic, normocephalic. Sclerae anicteric. Buccal mucosa dry. NECK: Supple. CHEST: Rise symmetrical. Breath sounds diminished to bases. HEART: S1, S2. ABDOMEN: Soft, bowel tones present. EXTREMITIES: Without cyanosis. ASSESSMENT: 1. Resolving sepsis status post shock. 2. Bilateral pneumonia, likely aspiration. 3. Status post permanent pacemaker placement on 02/27/2017. 4. End-stage renal disease. 5. History of kidney transplant. 6. History of VRE stool colonization. 7. Status post Aurora albicans urinary tract infection. PLAN: The patient remains stable, started on steroids. He is off pressors. Continue present care. Continue on current antibiotics. Dictated By: MYLA CHIU SUBSTATION OPERATOR APPRENTICE for VIC COX MD NI/NTS Conf#: [id number] DID#: [id number]
--- NOTE | 2017-03-06 14:49 | PN ---
DATE: 03/06/2017 SUBJECTIVE: No acute changes. The patient is off pressors, intubated, in no distress. No fevers. VITAL SIGNS: Temperature 98.4, pulse 62, respirations 30, blood pressure 130/79, saturation 99% on vent. WBC 5, H and H 9.5 and 32.5, platelets 136. BUN 77.1. INDWELLINGS: Femoral triple lumen catheter, right IJ Perm-A-Cath, endotracheal tube, NG tube. ANTIMICROBIALS: 1. Vancomycin. 2. Merrem. 3. Fluconazole. PHYSICAL EXAMINATION: GENERAL: This is a well-developed, fragile, elderly man who is intubated, in no distress. HEENT: Head atraumatic, normocephalic. Sclerae anicteric. Buccal mucosa dry. NECK: Supple. CHEST: Rise symmetrical. Breath sounds diminished to bases. HEART: S1, S2. ABDOMEN: Soft, bowel tones present. EXTREMITIES: Without cyanosis. ASSESSMENT: 1. Resolving sepsis status post shock. 2. Bilateral pneumonia, likely aspiration. 3. Status post permanent pacemaker placement on 02/27/2017. 4. End-stage renal disease. 5. History of kidney transplant. 6. History of VRE stool colonization. 7. Status post Aurora albicans urinary tract infection. PLAN: The patient remains stable, started on steroids. He is off pressors. Continue present care. Continue on current antibiotics. Dictated By: MYLA CHIU CERTIFIED PERSONAL FINANCE COUNSELOR for VIC COX MD NI/NTS Conf#: [id number] DID#: [id number]
[2017-03-06] MEDS ORDERED: VANCOMYCIN 1 GM in NS 250 ML IVPB ONE (16:00)
[2017-03-06] MEDS: FLUCONAZOLE 100 MG/NS (PMX) 50 ML IVPB SCH (17:27)
--- NOTE | 2017-03-06 17:35 | CONS ---
Date/Time of Note Date/Time of Note DATE: 03/06/17 TIME: 17:34 Consult Date/Type/Reason Admit Date/Time Mar 01, 2017 at 13:35 Initial Consult Date 03/01/17 Type of Consultation: cardiology Subjective CARDIOLOGY FOLLOW UP NOTE: S: Discussed with staff and rhythm strip is reviewed. Patient remains in demand ventricular pacemaker. Patient is still on the vent in ICU. He is off of Levophed drip and BP has been low but stable He is less sedated and denies any cp or pressure to me he has had moderate secretins per RT report O: General: thin man, s/p trach on vent. HEENT: NC/AT. . NECK: . no stridor. CV: RRR. systolic murmur; no gallop or rubs. chest: s/p left sided PPM, no hematoma or bleeding PULM: no wheezing + diffuse rhonchi. GI: SOFT, NT, ND, no rebound or guarding Extremity:+ B/L LE edema. no clubbing. neuro: awake and follows command Psych: calm and pleasant rectal: deferred : normal Objective Vital Signs Date Time Temp Pulse Resp B/P Pulse Ox O2 Delivery O2 Flow Rate FiO2 03/06/17 17:21 63 23 99 30 03/06/17 16:30 118/68 03/06/17 16:00 98.9 Mechanical Ventilator Intake and Output 03/05/17 03/05/17 03/06/17 15:00 23:00 07:00 Intake Total 306.18 ml 596.920 ml 537.744 ml Balance 306.18 ml 596.920 ml 537.744 ml Results/Medications Result Diagram: 03/06/17 0400 03/06/17 0400 Results 24 hrs Laboratory Tests Test 03/06/17 04:00 White Blood Count 5.0 # Red Blood Count 3.39 L Hemoglobin 9.5 L Hematocrit 32.5 L Mean Corpuscular Volume 95.9 Mean Corpuscular Hemoglobin 28.0 L Mean Corpuscular Hemoglobin Concent 29.2 L Red Cell Distribution Width 16.4 H Platelet Count 136 L Mean Platelet Volume 10.1 Neutrophils % 77.1 H Lymphocytes % 15.7 Monocytes % 6.4 Eosinophils % 0.0 Basophils % 0.2 Nucleated Red Blood Cells % 0.0 Neutrophils # 3.9 Lymphocytes # 0.8 Monocytes # 0.3 Eosinophils # 0.0 Basophils # 0.0 Nucleated Red Blood Cells # 0.0 Sodium Level 144 Potassium Level 5.0 Chloride Level 107 Carbon Dioxide Level 27 Anion Gap 15 Blood Urea Nitrogen 48 #H Creatinine 3.05 H Glucose Level 173 Calcium Level 8.5 Phosphorus Level 5.1 H Magnesium Level 2.1 Random Vancomycin Level 14.4 Medications Current Medications Acetaminophen (Tylenol Tab) 500 mg Q6H PRN PO PAIN AND OR ELEVATED TEMP; Start 03/01/17 at 13:30 Lidocaine (Lidocaine 5% Oint) 1 applic BID TOP Last administered on 03/06/17 09:04; Admin Dose 1 APPLIC; Start 03/01/17 at 21:00 Lidocaine (Lidoderm) 1 patch DAILY TD Last administered on 03/06/17 09:05; Admin Dose 1 PATCH; Start 03/02/17 at 09:00 Metolazone (Zaroxolyn) 2.5 mg DAILY PO Last administered on 03/05/17 12:31; Admin Dose 2.5 MG; Start 03/02/17 at 09:00 Oxycodone HCl (Roxicodone) 2.5 mg Q6H PRN PO PAIN; Start 03/01/17 at 13:30 Prednisone 5 mg 5 mg DAILY PO Last administered on 03/06/17 09:03; Admin Dose 5 MG; Start 03/02/17 at 09:00 Fluconazole/ Sodium Chloride (Diflucan 100 Mg/ NS (Pmx)) 50 ml @ 50 mls/hr Q24H IVPB Last administered on 03/05/17 16:06; Admin Dose 50 MLS/HR; Start at 16:30 Vancomycin HCl (Vanco Iv Per Pharmacy) PER PHARMACY DOSING NOTE XX ; Start 03/01 at 14:30 Eye Lubricant (Akwa Oint) 1 applic DAILY PRN RIGHT EYE ITCHING Last administered on 03/05/17 15:01; Admin Dose 1 APPLIC; Start 03/01/17 at 15:00 Bisacodyl (Dulcolax) 5 mg DAILY PRN PO CONSTIPATION Last administered on 10:14; Admin Dose 5 MG; Start 03/01/17 at 15:00 Cyclosporine (Sandimmune) 25 mg BID PO Last administered on 03/06/17 09:03; Admin Dose 25 MG; Start 03/01/17 at 21:00 Doxazosin Mesylate (Cardura) 2 mg QHS PO Last administered on 03/02/17 20:49; Admin Dose 2 MG; Start 03/01/17 at 21:00 Fluticasone Propionate (Flonase 0.05% Nasal) 1 spray BID NASAL Last administered on 03/06/17 09:04; Admin Dose 1 SPRAY; Start 03/01/17 at 21:00 Midodrine (Proamatine) 2.5 mg DAILY PO Last administered on 03/06/17 09:03; Admin Dose 2.5 MG; Start 03/02/17 at 09:00 Senna/Docusate Sodium (Senokot-S) 1 tab QHS PRN PO CONSTIPATION; Start at 15:00 Thiamine HCl (Vitamin B1) 100 mg DAILY PO Last administered on 03/06/17 09:03 ; Admin Dose 100 MG; Start 03/02/17 at 09:00 Eye Lubricant 1 drop 1 drop Q4H PRN BOTH EYES ITCHING EYES Last administered on 03/05/17 15:00; Admin Dose 1 DROP; Start 03/01/17 at 15:30 Norepinephrine 16 mg/Dextrose 500 ml @ 0 mls/hr TITRATE IV Last administered on 03/04/17 18:28; Admin Dose 3.75 MLS/HR; Start 03/01/17 at 17:30 Propofol 100 ml @ 2.406 mls/ hr Q12H IV Last administered on 03/06/17 16:29 ; Admin Dose 9.624 MLS/HR; Start 03/01/17 at 19:30 Midazolam HCl (Versed) 50 ml @ 1 mls/hr TITRATE IV ; Start 03/01/17 at 19:30 Apixaban (Eliquis) 2.5 mg BID PO Last administered on 03/06/17 09:03; Admin Dose 2.5 MG; Start 03/04/17 at 21:00 Lansoprazole (Prevacid) 30 mg DAILY@06 GTB Last administered on 03/06/17 05: 02; Admin Dose 30 MG; Start 03/06/17 at 06:00 Hydrocortisone 50 mg 50 mg Q8 IV Last administered on 03/06/17 14:32; Admin Dose 50 MG; Start 03/05/17 at 14:30 Meropenem/Sodium Chloride 50 ml @ 100 mls/hr Q24H IVPB ; Start 03/06/17 at 21: 00 Vancomycin HCl (Vancocin) 250 ml @ 125 mls/hr ONCE ONCE IVPB Last administered on 03/06/17 16:29; Admin Dose 125 MLS/HR; Start 03/06/17 at 16: 00; Stop 03/06/17 at 17:59 Assessment/Plan Chief Complaint/Hosp Course 1. Acute on-chronic hypoxemic, hypercapnic respiratory failure, status post intubation, now on the ventilator. 2. Sick sinus syndrome, status post permanent pacemaker. 3. Atrial fibrillation with a slow ventricular response, heart rate under control with the pacemaker. 4. Septic shock: still on levophed rip 5. Pneumonia. 6. Anemia. 7. History of hepatitis C. 8. History of renal transplant. 9. Renal failure, status post hemodialysis. 10. NSVT RECOMMENDATIONS: Antibiotic is being managed as per Infectious Disease recommendations. off of Procardia due to hypotension. Cont eliquis as long as no bleeding Antirejection medications as per Renal. Dialysis as per Renal. replace lytes Ventilator support, respiratory care will be continued. Continue with the ICU care. THANK YOU ROLAND DORSEY MD [facility] . Problems: ROLAND DORSEY MD Mar 06, 2017 17:35
--- NOTE | 2017-03-06 17:56 | CONS ---
Date/Time of Note Date/Time of Note DATE: 03/06/17 TIME: 17:55 Consult Date/Type/Reason Admit Date/Time Mar 01, 2017 at 13:35 Initial Consult Date 03/01/17 Type of Consultation: neph Subjective This is a 66-year-old male with a long, complicated past medical history. 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 The patient's kidney function initially had improvement where he was able to be taken off dialysis. The patient, however, years later went back on dialysis. In 1985. The patient underwent cadaveric renal transplant that was complicated with 1 episode of rejection that resolved with steroids. The patient in 2016, early, had a knee replacement surgery [facility] which was complicated by seroma and another surgery of that knee. The patient was treated for pneumonia. He was then admitted to [facility] in 11/2016. At that time, the patient had concerns of possible renal artery stenosis. The patient unfortunately underwent a cardiac arrest after being given Dilaudid. He had PA at the time, a code blue was called. He received 4 rounds of compression, epinephrine and 3 amps of bicarbonate. The patient was then intubated, admitted to intensive care unit and extubated few days later. He was then transferred to [facility]. Please note, during his hospital stay, while in the intensive care unit, the patient was on continuous renal replacement therapy. While at [place], the patient has been receiving respiratory care by Pulmonology , has been seen by cardiology. During the course in [place], the patient was on intermittent hemodialysis due to episodes of hyperkalemia. The patient also noted to have arrhythmia and had a recent pacemaker placement by Dr. Rosas. The patient was noted to be in more serious respiratory distress, hyperkalemic, hypotensive and was transferred to the intensive care unit for continued care. While in intensive care unit, the patient had hemodialysis. Unfortunately, he required intubation and was placed on pressor support. Overnight, no other acute events noted. No hemoptysis, hematemesis or hematochezia. on hd today. awaiting sedation wearing off to start weaning again poc reviewed with dr. bower MEDICATIONS: The patient's medications have been reviewed and reconciled. REVIEW OF SYSTEMS: A 14-point review of systems was conducted. Pertinent positives as obtained by reviewing medical records stated in HPI. PHYSICAL EXAMINATION: HEENT: Head is normocephalic, neck supple. CARDIOVASCULAR: Heart is regular rate, lungs show diminished breath sounds at the base. ABDOMEN: Soft, nontender to palpation without rebound or guarding. EXTREMITIES: Negative for clubbing, cyanosis. No trace edema. DERMATOLOGIC: No rashes. MUSCULOSKELETAL: No joint effusions. NEUROLOGIC: Limited exam as the patient is obtunded. time of assisted: 41 min ASSESSMENT AND PLAN: This is a 66-year-old male who presents with: 1. acute Ventilator-dependent respiratory failure. Etiology is likely secondary to multifocal pneumonia and congestive heart failure. The patient's CT scan was reviewed. The patient was intubated due to persistent hypoxemia. Plan at this point is to continue to treat underlying pneumonia. Continue ultrafiltration with hemodialysis. 2. Septic shock secondary to pneumonia. The patient is currently on pressor support and IV antibiotics will continue. will continue with pulse steroid given history of adrenal insufficiency due to chronic steroid use 3. 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 The patient is currently dialysis dependent. He will receive intermittent hemodialysis as necessary. Will continue to monitor for any signs of recovery. 4. 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 The patient is currently in acute kidney injury as stated above, will continue current treatment plan as stated above. Continue current immunosuppressive regimen. 5. History of arrhythmia, status post pacemaker placement. Follow up with cardiology. 6. Anemia. Monitor H and H levels. 7. Mineral bone disorder. Monitor calcium and phosphorus levels. 8. Acute encephalopathy toxic metabolic. Continue to monitor. 9. Gastrointestinal and deep venous thrombosis prophylaxis. 10. History of hepatitis C. 11. Severe debility. 12. History of osteoarthritis. 13. History of gout. Objective Vital Signs Date Time Temp Pulse Resp B/P Pulse Ox O2 Delivery O2 Flow Rate FiO2 03/06/17 17:21 63 23 99 30 03/06/17 16:30 118/68 03/06/17 16:00 98.9 Mechanical Ventilator Intake and Output 03/05/17 03/05/17 03/06/17 15:00 23:00 07:00 Intake Total 306.18 ml 596.920 ml 537.744 ml Balance 306.18 ml 596.920 ml 537.744 ml Results/Medications Result Diagram: 03/06/1739903/06/17399 Results 24 hrs Laboratory Tests Test 03/06/17 04:00 White Blood Count 5.0 # Red Blood Count 3.39 L Hemoglobin 9.5 L Hematocrit 32.5 L Mean Corpuscular Volume 95.9 Mean Corpuscular Hemoglobin 28.0 L Mean Corpuscular Hemoglobin Concent 29.2 L Red Cell Distribution Width 16.4 H Platelet Count 136 L Mean Platelet Volume 10.1 Neutrophils % 77.1 H Lymphocytes % 15.7 Monocytes % 6.4 Eosinophils % 0.0 Basophils % 0.2 Nucleated Red Blood Cells % 0.0 Neutrophils # 3.9 Lymphocytes # 0.8 Monocytes # 0.3 Eosinophils # 0.0 Basophils # 0.0 Nucleated Red Blood Cells # 0.0 Sodium Level 144 Potassium Level 5.0 Chloride Level 107 Carbon Dioxide Level 27 Anion Gap 15 Blood Urea Nitrogen 48 #H Creatinine 3.05 H Glucose Level 173 Calcium Level 8.5 Phosphorus Level 5.1 H Magnesium Level 2.1 Random Vancomycin Level 14.4 Medications Current Medications Acetaminophen (Tylenol Tab) 500 mg Q6H PRN PO PAIN AND OR ELEVATED TEMP; Start 03/01/17 at 13:30 Lidocaine (Lidocaine 5% Oint) 1 applic BID TOP Last administered on 03/06/17 09:04; Admin Dose 1 APPLIC; Start 03/01/17 at 21:00 Lidocaine (Lidoderm) 1 patch DAILY TD Last administered on 03/06/17 09:05; Admin Dose 1 PATCH; Start 03/02/17 at 09:00 Metolazone (Zaroxolyn) 2.5 mg DAILY PO Last administered on 03/05/17 12:31; Admin Dose 2.5 MG; Start 03/02/17 at 09:00 Oxycodone HCl (Roxicodone) 2.5 mg Q6H PRN PO PAIN; Start 03/01/17 at 13:30 Prednisone 5 mg 5 mg DAILY PO Last administered on 03/06/17 09:03; Admin Dose 5 MG; Start 03/02/17 at 09:00 Fluconazole/ Sodium Chloride (Diflucan 100 Mg/ NS (Pmx)) 50 ml @ 50 mls/hr Q24H IVPB Last administered on 03/05/17 16:06; Admin Dose 50 MLS/HR; Start at 16:30 Vancomycin HCl (Vanco Iv Per Pharmacy) PER PHARMACY DOSING NOTE XX ; Start 03/01 at 14:30 Eye Lubricant (Akwa Oint) 1 applic DAILY PRN RIGHT EYE ITCHING Last administered on 03/05/17 15:01; Admin Dose 1 APPLIC; Start 03/01/17 at 15:00 Bisacodyl (Dulcolax) 5 mg DAILY PRN PO CONSTIPATION Last administered on 10:14; Admin Dose 5 MG; Start 03/01/17 at 15:00 Cyclosporine (Sandimmune) 25 mg BID PO Last administered on 03/06/17 09:03; Admin Dose 25 MG; Start 03/01/17 at 21:00 Doxazosin Mesylate (Cardura) 2 mg QHS PO Last administered on 03/02/17 20:49; Admin Dose 2 MG; Start 03/01/17 at 21:00 Fluticasone Propionate (Flonase 0.05% Nasal) 1 spray BID NASAL Last administered on 03/06/17 09:04; Admin Dose 1 SPRAY; Start 03/01/17 at 21:00 Midodrine (Proamatine) 2.5 mg DAILY PO Last administered on 03/06/17 09:03; Admin Dose 2.5 MG; Start 03/02/17 at 09:00 Senna/Docusate Sodium (Senokot-S) 1 tab QHS PRN PO CONSTIPATION; Start at 15:00 Thiamine HCl (Vitamin B1) 100 mg DAILY PO Last administered on 03/06/17 09:03 ; Admin Dose 100 MG; Start 03/02/17 at 09:00 Eye Lubricant 1 drop 1 drop Q4H PRN BOTH EYES ITCHING EYES Last administered on 03/05/17 15:00; Admin Dose 1 DROP; Start 03/01/17 at 15:30 Norepinephrine 16 mg/Dextrose 500 ml @ 0 mls/hr TITRATE IV Last administered on 03/04/17 18:28; Admin Dose 3.75 MLS/HR; Start 03/01/17 at 17:30 Propofol 100 ml @ 2.406 mls/ hr Q12H IV Last administered on 03/06/17 16:29 ; Admin Dose 9.624 MLS/HR; Start 03/01/17 at 19:30 Midazolam HCl (Versed) 50 ml @ 1 mls/hr TITRATE IV ; Start 03/01/17 at 19:30 Apixaban (Eliquis) 2.5 mg BID PO Last administered on 03/06/17 09:03; Admin Dose 2.5 MG; Start 03/04/17 at 21:00 Lansoprazole (Prevacid) 30 mg DAILY@06 GTB Last administered on 03/06/17 05: 02; Admin Dose 30 MG; Start 03/06/17 at 06:00 Hydrocortisone 50 mg 50 mg Q8 IV Last administered on 03/06/17 14:32; Admin Dose 50 MG; Start 03/05/17 at 14:30 Meropenem/Sodium Chloride 50 ml @ 100 mls/hr Q24H IVPB ; Start 03/06/17 at 21: 00 Vancomycin HCl (Vancocin) 250 ml @ 125 mls/hr ONCE ONCE IVPB Last administered on 03/06/17 16:29; Admin Dose 125 MLS/HR; Start 03/06/17 at 16: 00; Stop 03/06/17 at 17:59 SWEETIE ANDERSON MD Mar 06, 2017 17:56
[2017-03-06] MEDS: DOXAZOSIN 2 MG TAB PO SCH (21:14)
[2017-03-06] MEDS: MEROPENEM 500MG/50 ML (PMX) 50 ML IVPB SCH (21:15)
[2017-03-07] VITALS (37 sets, daily range): BP systolic 118–137; BP diastolic 66–87; PULSE 59–68; RESP 8–62
[2017-03-07] MEDS: LANSOPRAZOLE 30 MG CAP GTB SCH (05:16)
[2017-03-07] MEDS: HYDROCORTISONE 100 MG INJ IV SCH ×2 (05:16→20:18)
[2017-03-07] MEDS: PROPOFOL 100 ML IV SCH ×3 (07:40→23:14)
[2017-03-07] MEDS: ACETYLCYSTEINE 20% 4 ML VIAL NEB SCH ×2 (08:03→21:08)
[2017-03-07] MEDS: predniSONE 5 MG TAB PO SCH (08:17)
[2017-03-07] MEDS: CYCLOSPORINE 25 MG CAP PO SCH ×2 (08:17→20:17)
[2017-03-07] MEDS: FLUTICASONE 0.05% 16 GM NAS SPRAY NASAL SCH ×2 (08:17→20:18)
[2017-03-07] MEDS: APIXABAN 5 MG TABLET PO SCH ×2 (08:18→20:17)
[2017-03-07] MEDS: LIDOCAINE 5% 35 GM OINT TOP SCH ×2 (08:18→20:18)
[2017-03-07] MEDS: MIDODRINE 5 MG TAB PO SCH (08:18)
[2017-03-07] MEDS: METOLAZONE 2.5 MG TAB PO SCH (08:18)
[2017-03-07] MEDS: LIDOCAINE 5% PATCH TD SCH (08:19)
[2017-03-07] MEDS: ARTIFICIAL TEARS 15 ML OPH BOTH EYES PRN (08:19)
[2017-03-07] MEDS: THIAMINE 100 MG TAB PO SCH (08:19)
--- NOTE | 2017-03-07 08:29 | CONS ---
Date/Time of Note Date/Time of Note DATE: 03/07/17 TIME: 08:27 Consult Date/Type/Reason Admit Date/Time Mar 01, 2017 at 13:35 Initial Consult Date 03/01/17 Type of Consultation: cardiology Subjective CARDIOLOGY FOLLOW UP NOTE: S: Discussed with staff and rhythm strip is reviewed. Patient remains in demand ventricular pacemaker. Patient is still on the vent in ICU. He remains off of Levophed drip and BP has been stable He is less sedated and denies any cp or pressure to me he has had moderate secretins no active bleeding is reported O: General: thin man, s/p trach on vent. HEENT: NC/AT. . NECK: . no stridor. CV: RRR. systolic murmur; no gallop or rubs. chest: s/p left sided PPM, no hematoma or bleeding PULM: no wheezing + diffuse rhonchi. GI: SOFT, NT, ND, no rebound or guarding Extremity:+ B/L LE edema. no clubbing. neuro: awake and follows command Psych: calm and pleasant rectal: deferred : normal Objective Vital Signs Date Time Temp Pulse Resp B/P Pulse Ox O2 Delivery O2 Flow Rate FiO2 03/07/17 07:51 59 20 100 30 03/07/17 06:00 127/78 Mechanical Ventilator 03/07/17 04:00 98.3 Intake and Output 03/06/17 03/06/17 03/07/17 15:00 23:00 07:00 Intake Total 942.556 ml 801.804 ml 547.368 ml Output Total 3000 ml 0 ml 0 ml Balance -2057.444 ml 801.804 ml 547.368 ml Results/Medications Result Diagram: 03/07/17 0501 03/07/17 0501 Results 24 hrs Laboratory Tests Test 03/07/17 05:00 03/07/17 05:01 Phosphorus Level 4.4 Magnesium Level 2.0 White Blood Count 5.8 Red Blood Count 3.31 L Hemoglobin 9.6 L Hematocrit 31.4 L Mean Corpuscular Volume 94.9 Mean Corpuscular Hemoglobin 29.0 Mean Corpuscular Hemoglobin Concent 30.6 L Red Cell Distribution Width 15.9 H Platelet Count 143 Mean Platelet Volume 10.2 Neutrophils % 73.7 Lymphocytes % 17.4 Monocytes % 8.4 Eosinophils % 0.0 Basophils % 0.0 Nucleated Red Blood Cells % 0.0 Neutrophils # 4.3 Lymphocytes # 1.0 Monocytes # 0.5 Eosinophils # 0.0 Basophils # 0.0 Nucleated Red Blood Cells # 0.0 Sodium Level 142 Potassium Level 4.3 Chloride Level 105 Carbon Dioxide Level 27 Anion Gap 14 Blood Urea Nitrogen 48 H Creatinine 2.55 H Glucose Level 140 Calcium Level 8.3 L Total Bilirubin 0.1 L Direct Bilirubin 0.00 Indirect Bilirubin 0.1 Aspartate Amino Transf (AST/SGOT) 50 H Alanine Aminotransferase (ALT/SGPT) 24 Alkaline Phosphatase 226 H Total Protein 7.2 Albumin 3.0 L Globulin 4.20 H Albumin/Globulin Ratio 0.71 Medications Current Medications Acetaminophen (Tylenol Tab) 500 mg Q6H PRN PO PAIN AND OR ELEVATED TEMP; Start 03/01/17 at 13:30 Lidocaine (Lidocaine 5% Oint) 1 applic BID TOP Last administered on 03/07/17 08:18; Admin Dose 1 APPLIC; Start 03/01/17 at 21:00 Lidocaine (Lidoderm) 1 patch DAILY TD Last administered on 03/07/17 08:19; Admin Dose 1 PATCH; Start 03/02/17 at 09:00 Metolazone (Zaroxolyn) 2.5 mg DAILY PO Last administered on 03/07/17 08:18; Admin Dose 2.5 MG; Start 03/02/17 at 09:00 Oxycodone HCl (Roxicodone) 2.5 mg Q6H PRN PO PAIN; Start 03/01/17 at 13:30 Prednisone 5 mg 5 mg DAILY PO Last administered on 03/07/17 08:17; Admin Dose 5 MG; Start 03/02/17 at 09:00 Fluconazole/ Sodium Chloride (Diflucan 100 Mg/ NS (Pmx)) 50 ml @ 50 mls/hr Q24H IVPB Last administered on 03/06/17 17:27; Admin Dose 50 MLS/HR; Start at 16:30 Vancomycin HCl (Vanco Iv Per Pharmacy) PER PHARMACY DOSING NOTE XX ; Start 03/01 at 14:30 Eye Lubricant (Akwa Oint) 1 applic DAILY PRN RIGHT EYE ITCHING Last administered on 03/05/17 15:01; Admin Dose 1 APPLIC; Start 03/01/17 at 15:00 Bisacodyl (Dulcolax) 5 mg DAILY PRN PO CONSTIPATION Last administered on 10:14; Admin Dose 5 MG; Start 03/01/17 at 15:00 Cyclosporine (Sandimmune) 25 mg BID PO Last administered on 03/07/17 08:17; Admin Dose 25 MG; Start 03/01/17 at 21:00 Doxazosin Mesylate (Cardura) 2 mg QHS PO Last administered on 03/06/17 21:14 ; Admin Dose 2 MG; Start 03/01/17 at 21:00 Fluticasone Propionate (Flonase 0.05% Nasal) 1 spray BID NASAL Last administered on 03/07/17 08:17; Admin Dose 1 SPRAY; Start 03/01/17 at 21:00 Midodrine (Proamatine) 2.5 mg DAILY PO Last administered on 03/07/17 08:18; Admin Dose 2.5 MG; Start 03/02/17 at 09:00 Senna/Docusate Sodium (Senokot-S) 1 tab QHS PRN PO CONSTIPATION; Start at 15:00 Thiamine HCl (Vitamin B1) 100 mg DAILY PO Last administered on 03/07/17 08:19 ; Admin Dose 100 MG; Start 03/02/17 at 09:00 Eye Lubricant 1 drop 1 drop Q4H PRN BOTH EYES ITCHING EYES Last administered on 03/07/17 08:19; Admin Dose 1 DROP; Start 03/01/17 at 15:30 Norepinephrine 16 mg/Dextrose 500 ml @ 0 mls/hr TITRATE IV Last administered on 03/04/17 18:28; Admin Dose 3.75 MLS/HR; Start 03/01/17 at 17:30 Propofol 100 ml @ 2.406 mls/ hr Q12H IV Last administered on 03/07/17 07:40 ; Admin Dose 9.624 MLS/HR; Start 03/01/17 at 19:30 Midazolam HCl (Versed) 50 ml @ 1 mls/hr TITRATE IV ; Start 03/01/17 at 19:30 Apixaban (Eliquis) 2.5 mg BID PO Last administered on 03/07/17 08:18; Admin Dose 2.5 MG; Start 03/04/17 at 21:00 Lansoprazole (Prevacid) 30 mg DAILY@06 GTB Last administered on 03/07/17 05: 16; Admin Dose 30 MG; Start 03/06/17 at 06:00 Hydrocortisone 50 mg 50 mg Q8 IV Last administered on 03/07/17 05:16; Admin Dose 50 MG; Start 03/05/17 at 14:30 Meropenem/Sodium Chloride (Merrem 500mg/50 ml(Pmx)) 50 ml @ 100 mls/hr Q24H IVPB Last administered on 03/06/17 21:15; Admin Dose 100 MLS/HR; Start 03/06 at 21:00 Assessment/Plan Chief Complaint/Hosp Course 1. Acute on-chronic hypoxemic, hypercapnic respiratory failure, status post intubation, now on the ventilator. 2. Sick sinus syndrome, status post permanent pacemaker. 3. Atrial fibrillation with a slow ventricular response, heart rate under control with the pacemaker. 4. Septic shock: still on levophed rip 5. Pneumonia. 6. Anemia. 7. History of hepatitis C. 8. History of renal transplant. 9. Renal failure, status post hemodialysis. 10. NSVT RECOMMENDATIONS: Antibiotic is being managed as per Infectious Disease recommendations. off of Procardia due to hypotension. Cont eliquis as long as no bleeding Antirejection medications as per Renal. Dialysis as per Renal. replace lytes Ventilator support, respiratory care will be continued. weaning trial if tolerated Continue with the ICU care. THANK YOU ROLAND DORSEY MD [facility] . Problems: ROLAND DORSEY MD Mar 07, 2017 08:29
[2017-03-07] MEDS: ACETAMINOPHEN 500 MG TAB PO PRN (08:35)
--- NOTE | 2017-03-07 10:59 | PN ---
Date/Time of Note Date/Time of Note DATE: 03/07/17 TIME: 10:58 Assessment/Plan VTE Prophylaxis VTE Prophylaxis Intervention: other Lines/Catheters IV Catheter Type (from [email or web address] Peripheral IV Urinary Cath still in place: No Assessment/Plan Chief Complaint/Hosp Course HISTORY OF PRESENT ILLNESS: This is a 66-year-old male with a long, complicated past medical history. 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 The patient's kidney function initially had improvement where he was able to be taken off dialysis. The patient, however, years later went back on dialysis. In 1985. The patient underwent cadaveric renal transplant that was complicated with 1 episode of rejection that resolved with steroids. The patient in 2016, early, had a knee replacement surgery [facility] which was complicated by seroma and another surgery of that knee. The patient was treated for pneumonia. He was then admitted to [facility] [address] in 11/2016. At that time, the patient had concerns of possible renal artery stenosis. The patient unfortunately underwent a cardiac arrest after being given Dilaudid. He had PA at the time, a code blue was called. He received 4 rounds of compression, epinephrine and 3 amps of bicarbonate. The patient was then intubated, admitted to intensive care unit and extubated few days later. He was then transferred to [facility]. Please note, during his hospital stay, while in the intensive care unit, the patient was on continuous renal replacement therapy. While at [place], the patient has been receiving respiratory care by Pulmonology, has been seen by cardiology. During the course in [place], the patient was on intermittent hemodialysis due to episodes of hyperkalemia. The patient also noted to have arrhythmia and had a recent pacemaker placement by Dr. Rosas. The patient was noted to be in more serious respiratory distress, hyperkalemic, hypotensive and was transferred to the intensive care unit for continued care. While in intensive care unit, the patient had hemodialysis. Unfortunately, he required intubation and was placed on pressor support. Overnight, no other acute events noted. No hemoptysis, hematemesis or hematochezia. last HD was yesterday. normotensive this morning. vent settings were reviewed d/w at the bedside MEDICATIONS: The patient's medications have been reviewed and reconciled. REVIEW OF SYSTEMS: A 14-point review of systems was conducted. Pertinent positives as obtained by reviewing medical records stated in HPI. PHYSICAL EXAMINATION: HEENT: Head is normocephalic, neck supple. CARDIOVASCULAR: Heart is regular rate, lungs show diminished breath sounds at the base. ABDOMEN: Soft, nontender to palpation without rebound or guarding. EXTREMITIES: Negative for clubbing, cyanosis. No trace edema. DERMATOLOGIC: No rashes. MUSCULOSKELETAL: No joint effusions. NEUROLOGIC: Limited exam as the patient is obtunded. time of chcf: 41 min ASSESSMENT AND PLAN: This is a 66-year-old male who presents with: 1. acute Ventilator-dependent respiratory failure. Etiology is likely secondary to multifocal pneumonia and congestive heart failure. The patient's CT scan was reviewed. The patient was intubated due to persistent hypoxemia. Plan at this point is to continue to treat underlying pneumonia. Continue ultrafiltration with hemodialysis. 2. Septic shock secondary to pneumonia. The patient is currently on pressor support and IV antibiotics will continue. will taper pulse steroid down to prednisone 5 daily 3. 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 The patient is currently dialysis dependent. He will receive intermittent hemodialysis as necessary. Will continue to monitor for any signs of recovery. 4. 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 The patient is currently in acute kidney injury as stated above, will continue current treatment plan as stated above. Continue current immunosuppressive regimen. 5. History of arrhythmia, status post pacemaker placement. Follow up with cardiology. 6. Anemia. Monitor H and H levels. 7. Mineral bone disorder. Monitor calcium and phosphorus levels. 8. Acute encephalopathy toxic metabolic. Continue to monitor. 9. Gastrointestinal and deep venous thrombosis prophylaxis. 10. History of hepatitis C. 11. Severe debility. 12. History of osteoarthritis. 13. History of gout. Problems: Exam/Review of Systems Vital Signs Vitals Vital Signs Date Time Temp Pulse Resp B/P Pulse Ox O2 Delivery O2 Flow Rate FiO2 03/07/17 10:10 60 28 100 30 03/07/17 08:00 98.9 135/81 Mechanical Ventilator Intake and Output 03/06/17 03/06/17 03/07/17 15:00 23:00 07:00 Intake Total 942.556 ml 801.804 ml 547.368 ml Output Total 3000 ml 0 ml 0 ml Balance -2057.444 ml 801.804 ml 547.368 ml Results Result Diagram: 03/07/17 0501 03/07/17 0501 Results 24 hrs Laboratory Tests Test 03/07/17 05:00 03/07/17 05:01 Phosphorus Level 4.4 Magnesium Level 2.0 White Blood Count 5.8 Red Blood Count 3.31 L Hemoglobin 9.6 L Hematocrit 31.4 L Mean Corpuscular Volume 94.9 Mean Corpuscular Hemoglobin 29.0 Mean Corpuscular Hemoglobin Concent 30.6 L Red Cell Distribution Width 15.9 H Platelet Count 143 Mean Platelet Volume 10.2 Neutrophils % 73.7 Lymphocytes % 17.4 Monocytes % 8.4 Eosinophils % 0.0 Basophils % 0.0 Nucleated Red Blood Cells % 0.0 Neutrophils # 4.3 Lymphocytes # 1.0 Monocytes # 0.5 Eosinophils # 0.0 Basophils # 0.0 Nucleated Red Blood Cells # 0.0 Sodium Level 142 Potassium Level 4.3 Chloride Level 105 Carbon Dioxide Level 27 Anion Gap 14 Blood Urea Nitrogen 48 H Creatinine 2.55 H Glucose Level 140 Calcium Level 8.3 L Total Bilirubin 0.1 L Direct Bilirubin 0.00 Indirect Bilirubin 0.1 Aspartate Amino Transf (AST/SGOT) 50 H Alanine Aminotransferase (ALT/SGPT) 24 Alkaline Phosphatase 226 H Total Protein 7.2 Albumin 3.0 L Globulin 4.20 H Albumin/Globulin Ratio 0.71 Medications Medications Current Medications Acetaminophen (Tylenol Tab) 500 mg Q6H PRN PO PAIN AND OR ELEVATED TEMP Last administered on 03/07/17 08:35; Admin Dose 500 MG; Start 03/01/17 at 13:30 Lidocaine (Lidocaine 5% Oint) 1 applic BID TOP Last administered on 03/07/17 08:18; Admin Dose 1 APPLIC; Start 03/01/17 at 21:00 Lidocaine (Lidoderm) 1 patch DAILY TD Last administered on 03/07/17 08:19; Admin Dose 1 PATCH; Start 03/02/17 at 09:00 Metolazone (Zaroxolyn) 2.5 mg DAILY PO Last administered on 03/07/17 08:18; Admin Dose 2.5 MG; Start 03/02/17 at 09:00 Oxycodone HCl (Roxicodone) 2.5 mg Q6H PRN PO PAIN; Start 03/01/17 at 13:30 Prednisone 5 mg 5 mg DAILY PO Last administered on 03/07/17 08:17; Admin Dose 5 MG; Start 03/02/17 at 09:00 Fluconazole/ Sodium Chloride (Diflucan 100 Mg/ NS (Pmx)) 50 ml @ 50 mls/hr Q24H IVPB Last administered on 03/06/17 17:27; Admin Dose 50 MLS/HR; Start at 16:30 Vancomycin HCl (Vanco Iv Per Pharmacy) PER PHARMACY DOSING NOTE XX ; Start 03/01 at 14:30 Eye Lubricant (Akwa Oint) 1 applic DAILY PRN RIGHT EYE ITCHING Last administered on 03/05/17 15:01; Admin Dose 1 APPLIC; Start 03/01/17 at 15:00 Bisacodyl (Dulcolax) 5 mg DAILY PRN PO CONSTIPATION Last administered on 10:14; Admin Dose 5 MG; Start 03/01/17 at 15:00 Cyclosporine (Sandimmune) 25 mg BID PO Last administered on 03/07/17 08:17; Admin Dose 25 MG; Start 03/01/17 at 21:00 Doxazosin Mesylate (Cardura) 2 mg QHS PO Last administered on 03/06/17 21:14 ; Admin Dose 2 MG; Start 03/01/17 at 21:00 Fluticasone Propionate (Flonase 0.05% Nasal) 1 spray BID NASAL Last administered on 03/07/17 08:17; Admin Dose 1 SPRAY; Start 03/01/17 at 21:00 Midodrine (Proamatine) 2.5 mg DAILY PO Last administered on 03/07/17 08:18; Admin Dose 2.5 MG; Start 03/02/17 at 09:00 Senna/Docusate Sodium (Senokot-S) 1 tab QHS PRN PO CONSTIPATION; Start at 15:00 Thiamine HCl (Vitamin B1) 100 mg DAILY PO Last administered on 03/07/17 08:19 ; Admin Dose 100 MG; Start 03/02/17 at 09:00 Eye Lubricant 1 drop 1 drop Q4H PRN BOTH EYES ITCHING EYES Last administered on 03/07/17 08:19; Admin Dose 1 DROP; Start 03/01/17 at 15:30 Norepinephrine 16 mg/Dextrose 500 ml @ 0 mls/hr TITRATE IV Last administered on 03/04/17 18:28; Admin Dose 3.75 MLS/HR; Start 03/01/17 at 17:30 Propofol 100 ml @ 2.406 mls/ hr Q12H IV Last administered on 03/07/17 07:40 ; Admin Dose 9.624 MLS/HR; Start 03/01/17 at 19:30 Midazolam HCl (Versed) 50 ml @ 1 mls/hr TITRATE IV ; Start 03/01/17 at 19:30 Apixaban (Eliquis) 2.5 mg BID PO Last administered on 03/07/17 08:18; Admin Dose 2.5 MG; Start 03/04/17 at 21:00 Lansoprazole (Prevacid) 30 mg DAILY@06 GTB Last administered on 03/07/17 05: 16; Admin Dose 30 MG; Start 03/06/17 at 06:00 Hydrocortisone 50 mg 50 mg Q8 IV Last administered on 03/07/17 05:16; Admin Dose 50 MG; Start 03/05/17 at 14:30 Meropenem/Sodium Chloride (Merrem 500mg/50 ml(Pmx)) 50 ml @ 100 mls/hr Q24H IVPB Last administered on 03/06/17 21:15; Admin Dose 100 MLS/HR; Start 03/06 at 21:00 REX FORREST DO Mar 07, 2017 10:59
--- NOTE | 2017-03-07 11:30 | CONS ---
Date/Time of Note Date/Time of Note DATE: 03/07/17 TIME: 11:26 Assessment/Plan Assessment/Plan Additional Assessment/Plan Patient is currently on propofol at 20 mics per kilogram per minute. Ventilator setting; AC of 20, tidal volume 500, PEEP of 5, 30% FiO2. Assessment and recommendations; 1. Patient admitted with bilateral pneumonia with significant radiological improvement. 2. History of renal transplant, patient on chronic immunosuppression however patient has renal failure requiring hemodialysis now. 3. Anemia and thrombocytopenia. 4. History of recent pacemaker placement. Hold further sedation. Once the patient is off sedation he will be evaluated for possible weaning from ventilator. Meanwhile continue current supportive care. Consultation Date/Type/Reason Admit Date/Time Mar 01, 2017 at 13:35 Initial Consult Date 03/01/17 Type of Consultation: Pulmonary/critical care 24 HR Interval Summary Free Text/Dictation Patient's condition remains critical but stable. Has remained hemodynamically stable. Patient has been unable to be weaned off from mechanical ventilation despite numerous attempts due to ensuing agitation and tachypnea whenever patient is off sedation. However over the last 24 hours the condition has improved. General exam; elderly male, orally intubated, sedated. Currently in no distress. Exam/Review of Systems Vital Signs Vitals Vital Signs Date Time Temp Pulse Resp B/P Pulse Ox O2 Delivery O2 Flow Rate FiO2 03/07/17 10:10 60 28 100 30 03/07/17 08:00 98.9 135/81 Mechanical Ventilator Intake and Output 03/06/17 03/06/17 03/07/17 15:00 23:00 07:00 Intake Total 942.556 ml 801.804 ml 547.368 ml Output Total 3000 ml 0 ml 0 ml Balance -2057.444 ml 801.804 ml 547.368 ml Exam HEENT exam; supple neck, no JVD. No lymphadenopathy. Midline trachea. No thyromegaly. Patient has multiple carious teeth. Has bilateral intraocular lens implants. Orally intubated. Chest exam; diminished but clear breath sounds. S1-S2 audible, no murmurs. Regular rhythm. Abdomen exam; soft, no organomegaly. Bowel sounds audible. Extremity exam; no peripheral edema. Patient does have ecchymosis involving all 4 extremities. 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 Results Result Diagram: 03/07/17 0501 03/07/17 0501 Results 24 hrs Laboratory Tests Test 03/07/17 05:00 03/07/17 05:01 Phosphorus Level 4.4 Magnesium Level 2.0 White Blood Count 5.8 Red Blood Count 3.31 L Hemoglobin 9.6 L Hematocrit 31.4 L Mean Corpuscular Volume 94.9 Mean Corpuscular Hemoglobin 29.0 Mean Corpuscular Hemoglobin Concent 30.6 L Red Cell Distribution Width 15.9 H Platelet Count 143 Mean Platelet Volume 10.2 Neutrophils % 73.7 Lymphocytes % 17.4 Monocytes % 8.4 Eosinophils % 0.0 Basophils % 0.0 Nucleated Red Blood Cells % 0.0 Neutrophils # 4.3 Lymphocytes # 1.0 Monocytes # 0.5 Eosinophils # 0.0 Basophils # 0.0 Nucleated Red Blood Cells # 0.0 Sodium Level 142 Potassium Level 4.3 Chloride Level 105 Carbon Dioxide Level 27 Anion Gap 14 Blood Urea Nitrogen 48 H Creatinine 2.55 H Glucose Level 140 Calcium Level 8.3 L Total Bilirubin 0.1 L Direct Bilirubin 0.00 Indirect Bilirubin 0.1 Aspartate Amino Transf (AST/SGOT) 50 H Alanine Aminotransferase (ALT/SGPT) 24 Alkaline Phosphatase 226 H Total Protein 7.2 Albumin 3.0 L Globulin 4.20 H Albumin/Globulin Ratio 0.71 Medications Medications Current Medications Acetaminophen (Tylenol Tab) 500 mg Q6H PRN PO PAIN AND OR ELEVATED TEMP Last administered on 03/07/17 08:35; Admin Dose 500 MG; Start 03/01/17 at 13:30 Lidocaine (Lidocaine 5% Oint) 1 applic BID TOP Last administered on 03/07/17 08:18; Admin Dose 1 APPLIC; Start 03/01/17 at 21:00 Lidocaine (Lidoderm) 1 patch DAILY TD Last administered on 03/07/17 08:19; Admin Dose 1 PATCH; Start 03/02/17 at 09:00 Metolazone (Zaroxolyn) 2.5 mg DAILY PO Last administered on 03/07/17 08:18; Admin Dose 2.5 MG; Start 03/02/17 at 09:00 Oxycodone HCl (Roxicodone) 2.5 mg Q6H PRN PO PAIN; Start 03/01/17 at 13:30 Prednisone 5 mg 5 mg DAILY PO Last administered on 03/07/17 08:17; Admin Dose 5 MG; Start 03/02/17 at 09:00 Fluconazole/ Sodium Chloride (Diflucan 100 Mg/ NS (Pmx)) 50 ml @ 50 mls/hr Q24H IVPB Last administered on 03/06/17 17:27; Admin Dose 50 MLS/HR; Start at 16:30 Vancomycin HCl (Vanco Iv Per Pharmacy) PER PHARMACY DOSING NOTE XX ; Start 03/01 at 14:30 Eye Lubricant (Akwa Oint) 1 applic DAILY PRN RIGHT EYE ITCHING Last administered on 03/05/17 15:01; Admin Dose 1 APPLIC; Start 03/01/17 at 15:00 Bisacodyl (Dulcolax) 5 mg DAILY PRN PO CONSTIPATION Last administered on 10:14; Admin Dose 5 MG; Start 03/01/17 at 15:00 Cyclosporine (Sandimmune) 25 mg BID PO Last administered on 03/07/17 08:17; Admin Dose 25 MG; Start 03/01/17 at 21:00 Doxazosin Mesylate (Cardura) 2 mg QHS PO Last administered on 03/06/17 21:14 ; Admin Dose 2 MG; Start 03/01/17 at 21:00 Fluticasone Propionate (Flonase 0.05% Nasal) 1 spray BID NASAL Last administered on 03/07/17 08:17; Admin Dose 1 SPRAY; Start 03/01/17 at 21:00 Senna/Docusate Sodium (Senokot-S) 1 tab QHS PRN PO CONSTIPATION; Start at 15:00 Thiamine HCl (Vitamin B1) 100 mg DAILY PO Last administered on 03/07/17 08:19 ; Admin Dose 100 MG; Start 03/02/17 at 09:00 Eye Lubricant 1 drop 1 drop Q4H PRN BOTH EYES ITCHING EYES Last administered on 03/07/17 08:19; Admin Dose 1 DROP; Start 03/01/17 at 15:30 Norepinephrine 16 mg/Dextrose 500 ml @ 0 mls/hr TITRATE IV Last administered on 03/04/17 18:28; Admin Dose 3.75 MLS/HR; Start 03/01/17 at 17:30 Propofol 100 ml @ 2.406 mls/ hr Q12H IV Last administered on 03/07/17 07:40 ; Admin Dose 9.624 MLS/HR; Start 03/01/17 at 19:30 Midazolam HCl (Versed) 50 ml @ 1 mls/hr TITRATE IV ; Start 03/01/17 at 19:30 Apixaban (Eliquis) 2.5 mg BID PO Last administered on 03/07/17 08:18; Admin Dose 2.5 MG; Start 03/04/17 at 21:00 Lansoprazole 30 mg 30 mg DAILY@06 GTB Last administered on 03/07/17 05:16; Admin Dose 30 MG; Start 03/06/17 at 06:00 Meropenem/Sodium Chloride (Merrem 500mg/50 ml(Pmx)) 50 ml @ 100 mls/hr Q24H IVPB Last administered on 03/06/17 21:15; Admin Dose 100 MLS/HR; Start 03/06 at 21:00 Hydrocortisone (Solu-Cortef) 50 mg BID IV ; Start 03/07/17 at 21:00 PAOLA RUIZ Mar 07, 2017 11:30
[2017-03-07] MEDS: FLUCONAZOLE 100 MG/NS (PMX) 50 ML IVPB SCH (15:30)
[2017-03-07] MEDS: DOXAZOSIN 2 MG TAB PO SCH (20:17)
[2017-03-07] MEDS: MEROPENEM 500MG/50 ML (PMX) 50 ML IVPB SCH (20:18)
[2017-03-07] MEDS: ALBUTEROL 18 GM INHALER INH PRN (21:09)
[2017-03-07] MEDS: IPRATROPIUM (HFA) 12.9 GM INHALER INH PRN (21:09)
[2017-03-08] VITALS (49 sets, daily range): BP systolic 96–145; BP diastolic 60–104; PULSE 60–66; RESP 13–54
[2017-03-08] MEDS: LANSOPRAZOLE 30 MG CAP GTB SCH (05:50)
--- NOTE | 2017-03-08 06:27 | PN ---
DATE: 03/07/2017 SUBJECTIVE: No acute changes. Patient looks comfortable on vent. Afebrile. OBJECTIVE: Temperature 98.9, pulse 60, respirations 65, blood pressure 135/81, saturation 100 on 30 FIO2. WBC 5.8, H and H 9.6 and 31.4, platelets 143. No shift, no bands. BUN 48, creatinine 2.55. INDWELLINGS: Endotracheal tube, NG tube. Right chest PermCath, right femoral triple-lumen catheter . ANTIMICROBIALS: 1. Vancomycin. 2. Meropenem. 3. Fluconazole. PHYSICAL EXAMINATION: GENERAL: This is a chronically ill-appearing, fragile, elderly man who is in no distress. HEENT: Head atraumatic, normocephalic. Sclerae anicteric. Buccal mucosa dry. NECK: Supple. CHEST: Rise symmetrical. Breath sounds diminished to bases. HEART: S1, S2. ABDOMEN: Soft, bowel tones present. EXTREMITIES: Without cyanosis. ASSESSMENT: 1. Resolving sepsis status post shock. 2. Bilateral pneumonia, likely aspiration, radiologically improving. 3. Aurora albicans urinary tract infection. 4. Acute on chronic respiratory failure. 5. Atrial fibrillation with slow ventricular response, status post permanent pacemaker placed on . 6. History of kidney transplant. 7. History of VRE stool colonization. 8. Chronic kidney disease, hemodialysis dependent. PLAN: patient remains stable, off sedation. Continue present care, weaning trials as per pulmonary . Continue on current antibiotics. Dictated By: MYLA CHIU TIMBER WATCHMAN for [facility] [employer] Conf#: [id number] DID#: [id number]
--- NOTE | 2017-03-08 06:27 | PN ---
DATE: 03/07/2017 SUBJECTIVE: No acute changes. Patient looks comfortable on vent. Afebrile. OBJECTIVE: Temperature 98.9, pulse 60, respirations 65, blood pressure 135/81, saturation 100 on 30 FIO2. WBC 5.8, H and H 9.6 and 31.4, platelets 143. No shift, no bands. BUN 48, creatinine 2.55. INDWELLINGS: Endotracheal tube, NG tube. Right chest PermCath, right femoral triple-lumen catheter . ANTIMICROBIALS: 1. Vancomycin. 2. Meropenem. 3. Fluconazole. PHYSICAL EXAMINATION: GENERAL: This is a chronically ill-appearing, fragile, elderly man who is in no distress. HEENT: Head atraumatic, normocephalic. Sclerae anicteric. Buccal mucosa dry. NECK: Supple. CHEST: Rise symmetrical. Breath sounds diminished to bases. HEART: S1, S2. ABDOMEN: Soft, bowel tones present. EXTREMITIES: Without cyanosis. ASSESSMENT: 1. Resolving sepsis status post shock. 2. Bilateral pneumonia, likely aspiration, radiologically improving. 3. Aurora albicans urinary tract infection. 4. Acute on chronic respiratory failure. 5. Atrial fibrillation with slow ventricular response, status post permanent pacemaker placed on . 6. History of kidney transplant. 7. History of VRE stool colonization. 8. Chronic kidney disease, hemodialysis dependent. PLAN: patient remains stable, off sedation. Continue present care, weaning trials as per pulmonary . Continue on current antibiotics. Dictated By: MYLA CHIU MANAGER AUDIO for [employer] Conf#: [id number] DID#: [id number]
--- NOTE | 2017-03-08 06:27 | PN ---
DATE: 03/07/2017 SUBJECTIVE: No acute changes. Patient looks comfortable on vent. Afebrile. OBJECTIVE: Temperature 98.9, pulse 60, respirations 65, blood pressure 135/81, saturation 100 on 30 FIO2. WBC 5.8, H and H 9.6 and 31.4, platelets 143. No shift, no bands. BUN 48, creatinine 2.55. INDWELLINGS: Endotracheal tube, NG tube. Right chest PermCath, right femoral triple-lumen catheter . ANTIMICROBIALS: 1. Vancomycin. 2. Meropenem. 3. Fluconazole. PHYSICAL EXAMINATION: GENERAL: This is a chronically ill-appearing, fragile, elderly man who is in no distress. HEENT: Head atraumatic, normocephalic. Sclerae anicteric. Buccal mucosa dry. NECK: Supple. CHEST: Rise symmetrical. Breath sounds diminished to bases. HEART: S1, S2. ABDOMEN: Soft, bowel tones present. EXTREMITIES: Without cyanosis. ASSESSMENT: 1. Resolving sepsis status post shock. 2. Bilateral pneumonia, likely aspiration, radiologically improving. 3. Aurora albicans urinary tract infection. 4. Acute on chronic respiratory failure. 5. Atrial fibrillation with slow ventricular response, status post permanent pacemaker placed on . 6. History of kidney transplant. 7. History of VRE stool colonization. 8. Chronic kidney disease, hemodialysis dependent. PLAN: patient remains stable, off sedation. Continue present care, weaning trials as per pulmonary . Continue on current antibiotics. Dictated By: MYLA CHIU CLAM DIGGER for [facility] [employer] Conf#: [id number] DID#: [id number]
--- NOTE | 2017-03-08 07:40 | CONS ---
Date/Time of Note Date/Time of Note DATE: 03/08/17 TIME: 07:39 Consult Date/Type/Reason Admit Date/Time Mar 01, 2017 at 13:35 Initial Consult Date 03/01/17 Type of Consultation: card Subjective CARDIOLOGY FOLLOW UP NOTE: S: Discussed with staff and rhythm strip is reviewed. Patient remains in demand ventricular pacemaker. Patient is still on the vent in ICU. He remains off of Levophed drip. BP has been stable He sedated now and nonverbal he has had moderate secretins no active bleeding is reported O: General: thin man, s/p trach on vent. HEENT: NC/AT. . NECK: . no stridor. CV: RRR. systolic murmur; no gallop or rubs. chest: s/p left sided PPM, no hematoma or bleeding PULM: no wheezing + diffuse rhonchi. GI: SOFT, NT, ND, no rebound or guarding Extremity:+ B/L LE edema. no clubbing. neuro: sedated. Psych: calm and pleasant rectal: deferred : normal Objective Vital Signs Date Time Temp Pulse Resp B/P Pulse Ox O2 Delivery O2 Flow Rate FiO2 03/08/17 06:00 61 20 144/80 100 Mechanical Ventilator 03/08/17 05:06 30 03/08/17 04:00 97.7 Intake and Output 03/07/17 03/07/17 03/08/17 15:00 23:00 07:00 Intake Total 399.248 ml 547.368 ml 596.992 ml Output Total 0 ml 0 ml Balance 399.248 ml 547.368 ml 596.992 ml Results/Medications Result Diagram: 03/07/17 0501 03/07/17 0501 Medications Current Medications Acetaminophen (Tylenol Tab) 500 mg Q6H PRN PO PAIN AND OR ELEVATED TEMP Last administered on 03/07/17 08:35; Admin Dose 500 MG; Start 03/01/17 at 13:30 Lidocaine (Lidocaine 5% Oint) 1 applic BID TOP Last administered on 03/07/17 20:18; Admin Dose 1 APPLIC; Start 03/01/17 at 21:00 Lidocaine (Lidoderm) 1 patch DAILY TD Last administered on 03/07/17 08:19; Admin Dose 1 PATCH; Start 03/02/17 at 09:00 Metolazone (Zaroxolyn) 2.5 mg DAILY PO Last administered on 03/07/17 08:18; Admin Dose 2.5 MG; Start 03/02/17 at 09:00 Oxycodone HCl (Roxicodone) 2.5 mg Q6H PRN PO PAIN; Start 03/01/17 at 13:30 Prednisone 5 mg 5 mg DAILY PO Last administered on 03/07/17 08:17; Admin Dose 5 MG; Start 03/02/17 at 09:00 Fluconazole/ Sodium Chloride (Diflucan 100 Mg/ NS (Pmx)) 50 ml @ 50 mls/hr Q24H IVPB Last administered on 03/07/17 15:30; Admin Dose 50 MLS/HR; Start at 16:30 Vancomycin HCl (Vanco Iv Per Pharmacy) PER PHARMACY DOSING NOTE XX ; Start 03/01 at 14:30 Eye Lubricant (Akwa Oint) 1 applic DAILY PRN RIGHT EYE ITCHING Last administered on 03/05/17 15:01; Admin Dose 1 APPLIC; Start 03/01/17 at 15:00 Bisacodyl (Dulcolax) 5 mg DAILY PRN PO CONSTIPATION Last administered on 10:14; Admin Dose 5 MG; Start 03/01/17 at 15:00 Cyclosporine (Sandimmune) 25 mg BID PO Last administered on 03/07/17 20:17; Admin Dose 25 MG; Start 03/01/17 at 21:00 Doxazosin Mesylate (Cardura) 2 mg QHS PO Last administered on 03/07/17 20:17 ; Admin Dose 2 MG; Start 03/01/17 at 21:00 Fluticasone Propionate (Flonase 0.05% Nasal) 1 spray BID NASAL Last administered on 03/07/17 20:18; Admin Dose 1 SPRAY; Start 03/01/17 at 21:00 Senna/Docusate Sodium (Senokot-S) 1 tab QHS PRN PO CONSTIPATION; Start at 15:00 Thiamine HCl (Vitamin B1) 100 mg DAILY PO Last administered on 03/07/17 08:19 ; Admin Dose 100 MG; Start 03/02/17 at 09:00 Eye Lubricant 1 drop 1 drop Q4H PRN BOTH EYES ITCHING EYES Last administered on 03/07/17 08:19; Admin Dose 1 DROP; Start 03/01/17 at 15:30 Norepinephrine 16 mg/Dextrose 500 ml @ 0 mls/hr TITRATE IV Last administered on 03/04/17 18:28; Admin Dose 3.75 MLS/HR; Start 03/01/17 at 17:30 Propofol 100 ml @ 2.406 mls/ hr Q12H IV Last administered on 03/07/17 23:14 ; Admin Dose 9.624 MLS/HR; Start 03/01/17 at 19:30 Midazolam HCl (Versed) 50 ml @ 1 mls/hr TITRATE IV ; Start 03/01/17 at 19:30 Apixaban (Eliquis) 2.5 mg BID PO Last administered on 03/07/17 20:17; Admin Dose 2.5 MG; Start 03/04/17 at 21:00 Lansoprazole 30 mg 30 mg DAILY@06 GTB Last administered on 03/08/17 05:50; Admin Dose 30 MG; Start 03/06/17 at 06:00 Meropenem/Sodium Chloride (Merrem 500mg/50 ml(Pmx)) 50 ml @ 100 mls/hr Q24H IVPB Last administered on 03/07/17 20:18; Admin Dose 100 MLS/HR; Start 03/06 at 21:00 Hydrocortisone (Solu-Cortef) 50 mg BID IV Last administered on 03/07/17 20:18 ; Admin Dose 50 MG; Start 03/07/17 at 21:00 Assessment/Plan Chief Complaint/Hosp Course 1. Acute on-chronic hypoxemic, hypercapnic respiratory failure, status post intubation, now on the ventilator. 2. Sick sinus syndrome, status post permanent pacemaker. 3. Atrial fibrillation with a slow ventricular response, heart rate under control with the pacemaker. 4. Septic shock: BP has improved now and pt is off of evophed drip now 5. Pneumonia. 6. Anemia. 7. History of hepatitis C. 8. History of renal transplant. 9. Renal failure, status post hemodialysis. 10. NSVT RECOMMENDATIONS: Antibiotic is being managed as per Infectious Disease recommendations. off of Procardia due to hypotension. Cont eliquis as long as no bleeding Antirejection medications as per Renal. Dialysis as per Renal. replace lytes prn Ventilator support, respiratory care will be continued. weaning trial if tolerated Continue with the ICU care. THANK YOU ROLAND DORSEY MD [facility] . Problems: ROLAND DORSEY MD Mar 08, 2017 07:40
[2017-03-08] MEDS: ACETYLCYSTEINE 20% 4 ML VIAL NEB SCH ×2 (09:00→20:27)
[2017-03-08] MEDS: METOLAZONE 2.5 MG TAB PO SCH ×2 (09:00→09:16)
[2017-03-08] MEDS: FLUTICASONE 0.05% 16 GM NAS SPRAY NASAL SCH ×2 (09:13→21:49)
[2017-03-08] MEDS: LIDOCAINE 5% 35 GM OINT TOP SCH ×2 (09:13→21:49)
[2017-03-08] MEDS: predniSONE 5 MG TAB PO SCH (09:14)
[2017-03-08] MEDS: APIXABAN 5 MG TABLET PO SCH ×2 (09:14→21:48)
[2017-03-08] MEDS: CYCLOSPORINE 25 MG CAP PO SCH ×2 (09:14→21:48)
[2017-03-08] MEDS: LIDOCAINE 5% PATCH TD SCH (09:14)
[2017-03-08] MEDS: HYDROCORTISONE 100 MG INJ IV SCH ×2 (09:14→21:48)
[2017-03-08] MEDS: THIAMINE 100 MG TAB PO SCH (09:14)
--- NOTE | 2017-03-08 10:09 | RADRPT ---
PROCEDURE: XR Chest. CLINICAL INDICATION: Shortness of breath. TECHNIQUE: Single frontal view. COMPARISON: 03/05/2017. FINDINGS: The endotracheal tube, nasogastric tube, right internal jugular vein tunneled dialysis catheter, and left-sided single lead permanent pacemaker remain in satisfactory position. There is interstitial and air space disease bilaterally consistent with pulmonary edema, unchanged. The heart is enlarged. There is calcification in the aorta consistent with atherosclerosis. There is no pneumothorax. IMPRESSION: 1. No change from 03/05/2017. RPTAT: QQ .Pa Arroyo MD, MD Date Time Electronically viewed and signed by .Pa Arroyo MD, MD on 03/08/2017 10:09 .R/
--- NOTE | 2017-03-08 10:29 | CONS ---
Date/Time of Note Date/Time of Note DATE: 03/08/17 TIME: 10:22 Consult Date/Type/Reason Admit Date/Time Mar 01, 2017 at 13:35 Initial Consult Date 03/01/17 Type of Consultation: neph Subjective 66-year-old male with a long, complicated past medical history. 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 The patient's kidney function initially had improvement where he was able to be taken off dialysis. The patient, however, years later went back on dialysis. In 1985. The patient underwent cadaveric renal transplant that was complicated with 1 episode of rejection that resolved with steroids. The patient in 2016, early, had a knee replacement surgery [facility] which was complicated by seroma and another surgery of that knee. The patient was treated for pneumonia. He was then admitted to [facility] in 11/2016. At that time, the patient had concerns of possible renal artery stenosis. The patient unfortunately underwent a cardiac arrest after being given Dilaudid. He had PA at the time, a code blue was called. He received 4 rounds of compression, epinephrine and 3 amps of bicarbonate. The patient was then intubated, admitted to intensive care unit and extubated few days later. He was then transferred to [facility]. Please note, during his hospital stay, while in the intensive care unit, the patient was on continuous renal replacement therapy. While at [place], the patient has been receiving respiratory care by Pulmonology , has been seen by cardiology. During the course in [place], the patient was on intermittent hemodialysis due to episodes of hyperkalemia. The patient also noted to have arrhythmia and had a recent pacemaker placement by Dr. Rosas. The patient was noted to be in more serious respiratory distress, hyperkalemic, hypotensive and was transferred to the intensive care unit for continued care. While in intensive care unit, the patient had hemodialysis. Unfortunately, he required intubation and was placed on pressor support. Overnight, no other acute events noted. No hemoptysis, hematemesis or hematochezia. on hd today.. normotensive this morning. vent settings were reviewed d/w at the bedside MEDICATIONS: The patient's medications have been reviewed and reconciled. REVIEW OF SYSTEMS: A 14-point review of systems was conducted. Pertinent positives as obtained by reviewing medical records stated in HPI. PHYSICAL EXAMINATION: HEENT: Head is normocephalic, neck supple. CARDIOVASCULAR: Heart is regular rate, lungs show diminished breath sounds at the base. ABDOMEN: Soft, nontender to palpation without rebound or guarding. EXTREMITIES: Negative for clubbing, cyanosis. No trace edema. DERMATOLOGIC: No rashes. MUSCULOSKELETAL: No joint effusions. NEUROLOGIC: Limited exam as the patient is obtunded. time of nursing home: 41 min Objective Vital Signs Date Time Temp Pulse Resp B/P Pulse Ox O2 Delivery O2 Flow Rate FiO2 03/08/17 08:00 60 03/08/17 06:00 20 144/80 100 Mechanical Ventilator 03/08/17 05:06 30 03/08/17 04:00 97.7 Intake and Output 03/07/17 03/07/17 03/08/17 14:59 22:59 06:59 Intake Total 399.248 ml 497.744 ml 596.992 ml Output Total 0 ml 0 ml Balance 399.248 ml 497.744 ml 596.992 ml Results/Medications Result Diagram: 03/07/17 0501 03/07/17 0501 Medications Current Medications Acetaminophen (Tylenol Tab) 500 mg Q6H PRN PO PAIN AND OR ELEVATED TEMP Last administered on 03/07/17 08:35; Admin Dose 500 MG; Start 03/01/17 at 13:30 Lidocaine (Lidocaine 5% Oint) 1 applic BID TOP Last administered on 03/08/17 09:13; Admin Dose 1 APPLIC; Start 03/01/17 at 21:00 Lidocaine (Lidoderm) 1 patch DAILY TD Last administered on 03/08/17 09:14; Admin Dose 1 PATCH; Start 03/02/17 at 09:00 Metolazone (Zaroxolyn) 2.5 mg DAILY PO Last administered on 03/07/17 08:18; Admin Dose 2.5 MG; Start 03/02/17 at 09:00 Oxycodone HCl (Roxicodone) 2.5 mg Q6H PRN PO PAIN; Start 03/01/17 at 13:30 Prednisone 5 mg 5 mg DAILY PO Last administered on 03/08/17 09:14; Admin Dose 5 MG; Start 03/02/17 at 09:00 Fluconazole/ Sodium Chloride (Diflucan 100 Mg/ NS (Pmx)) 50 ml @ 50 mls/hr Q24H IVPB Last administered on 03/07/17 15:30; Admin Dose 50 MLS/HR; Start at 16:30 Vancomycin HCl (Vanco Iv Per Pharmacy) PER PHARMACY DOSING NOTE XX ; Start 03/01 at 14:30 Eye Lubricant (Akwa Oint) 1 applic DAILY PRN RIGHT EYE ITCHING Last administered on 03/05/17 15:01; Admin Dose 1 APPLIC; Start 03/01/17 at 15:00 Bisacodyl (Dulcolax) 5 mg DAILY PRN PO CONSTIPATION Last administered on 10:14; Admin Dose 5 MG; Start 03/01/17 at 15:00 Cyclosporine (Sandimmune) 25 mg BID PO Last administered on 03/08/17 09:14; Admin Dose 25 MG; Start 03/01/17 at 21:00 Doxazosin Mesylate (Cardura) 2 mg QHS PO Last administered on 03/07/17 20:17 ; Admin Dose 2 MG; Start 03/01/17 at 21:00 Fluticasone Propionate (Flonase 0.05% Nasal) 1 spray BID NASAL Last administered on 03/08/17 09:13; Admin Dose 1 SPRAY; Start 03/01/17 at 21:00 Senna/Docusate Sodium (Senokot-S) 1 tab QHS PRN PO CONSTIPATION; Start at 15:00 Thiamine HCl (Vitamin B1) 100 mg DAILY PO Last administered on 03/08/17 09:14 ; Admin Dose 100 MG; Start 03/02/17 at 09:00 Eye Lubricant 1 drop 1 drop Q4H PRN BOTH EYES ITCHING EYES Last administered on 03/07/17 08:19; Admin Dose 1 DROP; Start 03/01/17 at 15:30 Norepinephrine 16 mg/Dextrose 500 ml @ 0 mls/hr TITRATE IV Last administered on 03/04/17 18:28; Admin Dose 3.75 MLS/HR; Start 03/01/17 at 17:30 Propofol 100 ml @ 2.406 mls/ hr Q12H IV Last administered on 03/07/17 23:14 ; Admin Dose 9.624 MLS/HR; Start 03/01/17 at 19:30 Midazolam HCl (Versed) 50 ml @ 1 mls/hr TITRATE IV ; Start 03/01/17 at 19:30 Apixaban (Eliquis) 2.5 mg BID PO Last administered on 03/08/17 09:14; Admin Dose 2.5 MG; Start 03/04/17 at 21:00 Lansoprazole 30 mg 30 mg DAILY@06 GTB Last administered on 03/08/17 05:50; Admin Dose 30 MG; Start 03/06/17 at 06:00 Meropenem/Sodium Chloride (Merrem 500mg/50 ml(Pmx)) 50 ml @ 100 mls/hr Q24H IVPB Last administered on 03/07/17 20:18; Admin Dose 100 MLS/HR; Start 03/06 at 21:00 Hydrocortisone (Solu-Cortef) 50 mg BID IV Last administered on 03/08/17 09:14 ; Admin Dose 50 MG; Start 03/07/17 at 21:00 Assessment/Plan Chief Complaint/Hosp Course 1. acute Ventilator-dependent respiratory failure. Etiology is likely secondary to multifocal pneumonia and congestive heart failure. The patient's CT scan was reviewed. The patient was intubated due to persistent hypoxemia. Plan at this point is to continue to treat underlying pneumonia. Continue ultrafiltration with hemodialysis. 2. Septic shock secondary to pneumonia. The patient is currently off pressor support. IV antibiotics will continue. will taper pulse steroid down to prednisone 5 daily 3. 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 The patient is currently dialysis dependent. He will receive intermittent hemodialysis as necessary. Will continue to monitor for any signs of recovery. 4. 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 The patient is currently in acute kidney injury as stated above, will continue current treatment plan as stated above. Continue current immunosuppressive regimen. 5. History of arrhythmia, status post pacemaker placement. Follow up with cardiology. 6. Anemia. Monitor H and H levels. 7. Mineral bone disorder. Monitor calcium and phosphorus levels. 8. Acute encephalopathy toxic metabolic. Continue to monitor. 9. Gastrointestinal and deep venous thrombosis prophylaxis. 10. History of hepatitis C. 11. Severe debility. 12. History of osteoarthritis. 13. History of gout. Problems: SWEETIE ANDERSON MD Mar 08, 2017 10:29
--- NOTE | 2017-03-08 12:47 | CONS ---
Date/Time of Note Date/Time of Note DATE: 03/08/17 TIME: 12:46 Consultation Date/Type/Reason Admit Date/Time Mar 01, 2017 at 13:35 Initial Consult Date 03/01/17 Type of Consultation: pulm/cc 24 HR Interval Summary Free Text/Dictation dictated [id number] Exam/Review of Systems Vital Signs Vitals Vital Signs Date Time Temp Pulse Resp B/P Pulse Ox O2 Delivery O2 Flow Rate FiO2 03/08/17 12:00 60 03/08/17 06:00 20 144/80 100 Mechanical Ventilator 03/08/17 05:06 30 03/08/17 04:00 97.7 Intake and Output 03/07/17 03/07/17 03/08/17 15:00 23:00 07:00 Intake Total 399.248 ml 547.368 ml 596.992 ml Output Total 0 ml 0 ml Balance 399.248 ml 547.368 ml 596.992 ml Results Result Diagram: 03/07/17 0501 03/07/17 0501 Medications Medications Current Medications Acetaminophen (Tylenol Tab) 500 mg Q6H PRN PO PAIN AND OR ELEVATED TEMP Last administered on 03/07/17 08:35; Admin Dose 500 MG; Start 03/01/17 at 13:30 Lidocaine (Lidocaine 5% Oint) 1 applic BID TOP Last administered on 03/08/17 09:13; Admin Dose 1 APPLIC; Start 03/01/17 at 21:00 Lidocaine (Lidoderm) 1 patch DAILY TD Last administered on 03/08/17 09:14; Admin Dose 1 PATCH; Start 03/02/17 at 09:00 Metolazone (Zaroxolyn) 2.5 mg DAILY PO Last administered on 03/07/17 08:18; Admin Dose 2.5 MG; Start 03/02/17 at 09:00 Oxycodone HCl (Roxicodone) 2.5 mg Q6H PRN PO PAIN; Start 03/01/17 at 13:30 Prednisone 5 mg 5 mg DAILY PO Last administered on 03/08/17 09:14; Admin Dose 5 MG; Start 03/02/17 at 09:00 Fluconazole/ Sodium Chloride (Diflucan 100 Mg/ NS (Pmx)) 50 ml @ 50 mls/hr Q24H IVPB Last administered on 03/07/17 15:30; Admin Dose 50 MLS/HR; Start at 16:30 Vancomycin HCl (Vanco Iv Per Pharmacy) PER PHARMACY DOSING NOTE XX ; Start 03/01 at 14:30 Eye Lubricant (Akwa Oint) 1 applic DAILY PRN RIGHT EYE ITCHING Last administered on 03/05/17 15:01; Admin Dose 1 APPLIC; Start 03/01/17 at 15:00 Bisacodyl (Dulcolax) 5 mg DAILY PRN PO CONSTIPATION Last administered on 10:14; Admin Dose 5 MG; Start 03/01/17 at 15:00 Cyclosporine (Sandimmune) 25 mg BID PO Last administered on 03/08/17 09:14; Admin Dose 25 MG; Start 03/01/17 at 21:00 Doxazosin Mesylate (Cardura) 2 mg QHS PO Last administered on 03/07/17 20:17 ; Admin Dose 2 MG; Start 03/01/17 at 21:00 Fluticasone Propionate (Flonase 0.05% Nasal) 1 spray BID NASAL Last administered on 03/08/17 09:13; Admin Dose 1 SPRAY; Start 03/01/17 at 21:00 Senna/Docusate Sodium (Senokot-S) 1 tab QHS PRN PO CONSTIPATION; Start at 15:00 Thiamine HCl (Vitamin B1) 100 mg DAILY PO Last administered on 03/08/17 09:14 ; Admin Dose 100 MG; Start 03/02/17 at 09:00 Eye Lubricant 1 drop 1 drop Q4H PRN BOTH EYES ITCHING EYES Last administered on 03/07/17 08:19; Admin Dose 1 DROP; Start 03/01/17 at 15:30 Norepinephrine 16 mg/Dextrose 500 ml @ 0 mls/hr TITRATE IV Last administered on 03/04/17 18:28; Admin Dose 3.75 MLS/HR; Start 03/01/17 at 17:30 Propofol 100 ml @ 2.406 mls/ hr Q12H IV Last administered on 03/07/17 23:14 ; Admin Dose 9.624 MLS/HR; Start 03/01/17 at 19:30 Midazolam HCl (Versed) 50 ml @ 1 mls/hr TITRATE IV ; Start 03/01/17 at 19:30 Apixaban (Eliquis) 2.5 mg BID PO Last administered on 03/08/17 09:14; Admin Dose 2.5 MG; Start 03/04/17 at 21:00 Lansoprazole 30 mg 30 mg DAILY@06 GTB Last administered on 03/08/17 05:50; Admin Dose 30 MG; Start 03/06/17 at 06:00 Meropenem/Sodium Chloride (Merrem 500mg/50 ml(Pmx)) 50 ml @ 100 mls/hr Q24H IVPB Last administered on 03/07/17 20:18; Admin Dose 100 MLS/HR; Start 03/06 at 21:00 Hydrocortisone (Solu-Cortef) 50 mg BID IV Last administered on 03/08/17 09:14 ; Admin Dose 50 MG; Start 03/07/17 at 21:00 Miscellaneous Information (*Rx Drug Level Order Reminder*) VANCO RANDOM W/ AM LABS... ONCE ONCE XX ; Start 03/09/17 at 05:00; Stop 03/09/17 at 05:01 PAOLA RUIZ Mar 08, 2017 12:47
--- NOTE | 2017-03-08 13:41 | PN ---
DATE: 03/08/2017 INFECTIOUS DISEASE PROGRESS NOTE SUBJECTIVE: The patient is awake, looks comfortable finishing hemodialysis. He is in no distress, no fevers, off sedation and follows commands. VITAL SIGNS: Temperature 97.7, pulse 60, respirations 20, blood pressure 132/80, saturation 100 on vent. No labs this morning. DIAGNOSTICS: Chest x-ray revealed no change from 03/05/2017. INDWELLINGS: Endotracheal tube, NG tube, femoral line. Right chest PermCath. ANTIMICROBIALS: 1. Vancomycin. 2. Meropenem. 3. Fluconazole. PHYSICAL EXAMINATION: GENERAL: Chronically ill-appearing, elderly man who is intubated, in no distress. HEENT: Head atraumatic, normocephalic. Sclerae anicteric. Buccal mucosa dry. NECK: Supple. CHEST: Rise symmetrical. Breath sounds diminished to bases. HEART: S1, S2. ABDOMEN: Soft, bowel tones present. EXTREMITIES: Without cyanosis. ASSESSMENT: 1. Resolving sepsis. 2. Resolving pneumonia. 3. Acute respiratory failure, tolerate weaning. 4. Aurora albicans urinary tract infection. 5. End-stage renal disease, hemodialysis dependent. 6. History of kidney transplant. 7. History of vancomycin-resistant enterococcus stool colonization. 8. Atrial fibrillation with slow ventricular response, status post permanent pacemaker placement on 02/27/2017. PLAN: The patient remains stable. Continue present care. Complete antibiotics. Weaning trials pe r pulmonary, possible extubation. Dictated By: MYLA CHIU DIRECTOR OF PROMOTIONS for [employer] Conf#: [id number] DID#: [id number]
--- NOTE | 2017-03-08 13:41 | PN ---
DATE: 03/08/2017 INFECTIOUS DISEASE PROGRESS NOTE SUBJECTIVE: The patient is awake, looks comfortable finishing hemodialysis. He is in no distress, no fevers, off sedation and follows commands. VITAL SIGNS: Temperature 97.7, pulse 60, respirations 20, blood pressure 132/80, saturation 100 on vent. No labs this morning. DIAGNOSTICS: Chest x-ray revealed no change from 03/05/2017. INDWELLINGS: Endotracheal tube, NG tube, femoral line. Right chest PermCath. ANTIMICROBIALS: 1. Vancomycin. 2. Meropenem. 3. Fluconazole. PHYSICAL EXAMINATION: GENERAL: Chronically ill-appearing, elderly man who is intubated, in no distress. HEENT: Head atraumatic, normocephalic. Sclerae anicteric. Buccal mucosa dry. NECK: Supple. CHEST: Rise symmetrical. Breath sounds diminished to bases. HEART: S1, S2. ABDOMEN: Soft, bowel tones present. EXTREMITIES: Without cyanosis. ASSESSMENT: 1. Resolving sepsis. 2. Resolving pneumonia. 3. Acute respiratory failure, tolerate weaning. 4. Aurora albicans urinary tract infection. 5. End-stage renal disease, hemodialysis dependent. 6. History of kidney transplant. 7. History of vancomycin-resistant enterococcus stool colonization. 8. Atrial fibrillation with slow ventricular response, status post permanent pacemaker placement on 02/27/2017. PLAN: The patient remains stable. Continue present care. Complete antibiotics. Weaning trials pe r pulmonary, possible extubation. Dictated By: MYLA CHIU ORACLE BPM DEVELOPER for [employer] Conf#: [id number] DID#: [id number]
--- NOTE | 2017-03-08 13:41 | PN ---
DATE: 03/08/2017 INFECTIOUS DISEASE PROGRESS NOTE SUBJECTIVE: The patient is awake, looks comfortable finishing hemodialysis. He is in no distress, no fevers, off sedation and follows commands. VITAL SIGNS: Temperature 97.7, pulse 60, respirations 20, blood pressure 132/80, saturation 100 on vent. No labs this morning. DIAGNOSTICS: Chest x-ray revealed no change from 03/05/2017. INDWELLINGS: Endotracheal tube, NG tube, femoral line. Right chest PermCath. ANTIMICROBIALS: 1. Vancomycin. 2. Meropenem. 3. Fluconazole. PHYSICAL EXAMINATION: GENERAL: Chronically ill-appearing, elderly man who is intubated, in no distress. HEENT: Head atraumatic, normocephalic. Sclerae anicteric. Buccal mucosa dry. NECK: Supple. CHEST: Rise symmetrical. Breath sounds diminished to bases. HEART: S1, S2. ABDOMEN: Soft, bowel tones present. EXTREMITIES: Without cyanosis. ASSESSMENT: 1. Resolving sepsis. 2. Resolving pneumonia. 3. Acute respiratory failure, tolerate weaning. 4. Aurora albicans urinary tract infection. 5. End-stage renal disease, hemodialysis dependent. 6. History of kidney transplant. 7. History of vancomycin-resistant enterococcus stool colonization. 8. Atrial fibrillation with slow ventricular response, status post permanent pacemaker placement on 02/27/2017. PLAN: The patient remains stable. Continue present care. Complete antibiotics. Weaning trials pe r pulmonary, possible extubation. Dictated By: MYLA CHIU STAFF CLIMATE SCIENTIST for [employer] Conf#: [id number] DID#: [id number]
--- NOTE | 2017-03-08 15:09 | CONS ---
DATE OF ADMISSION: 03/01/2017 DATE OF CONSULTATION: 03/08/2017 PULMONARY CRITICAL CARE PROGRESS NOTE HISTORY OF PRESENT ILLNESS: Mr. Kern's condition remains critical, but stable. The patient has momo led multiple weaning trials from ventilator; however, the patient's condition has improved over the last several hours to the point he is now awake and follows simple commands and does not appear to b e agitated off sedation. PHYSICAL EXAMINATION: GENERAL: He male, orally intubated, currently in no distress, awake. VITAL SIGNS: Temperature is 99 degree Fahrenheit, pulse is 60 per minute, blood pressure is 140/80, O2 sat 100%, respiratory rate is 18 per minute. Urine output remains poor on account of end-stage renal disease. HEENT: Supple neck, positive JVD, no lymphadenopathy, midline trachea, no thyromegaly, orally intub ated. Patient did have multiple carious teeth. Pupils are small bilaterally with bilateral intraoc ular lens implants. CHEST: Diminished breath sounds at lung bases upper lobes are clear. HEART: S1, S2 audible. No murmurs, regular rhythm. ABDOMEN: Soft. No organomegaly. Bowel sounds audible. EXTREMITIES: No edema. Patient does have ecchymosis involving all 4 extremities. CENTRAL NERVOUS SYSTEM: The patient is awake and follows simple commands. IMAGING: Chest x-ray was reviewed from today which is showing persistent right upper lobe infiltrat e. Endotracheal tube is at an adequate level data. Labs were not drawn today. MEDICATIONS: 1. Propofol 20 mcg/kg per minute. 2. Fluconazole 200 mg IV daily. 3. Meropenem 1 gram IV daily. 4. Acetaminophen on a p.r.n. basis. 5. DuoNeb q.6h. 6. Apixaban 2.5 mg b.i.d. 7. The patient is on tube feedings via NG tube. 8. Cardura 2 mg daily. 9. Pulmicort 50 mg IV q.12h. 10. Prevacid 30 mg daily. 11. Zaroxolyn 2.5 mg daily. 12. Prednisone 5 mg a day. 11. Thiamine 100 mg a day. 9. Vancomycin intravenous dosed by the pharmacy. Ventilator settings are AC of 20, tidal volume 500, PEEP of 5 and 30% FIO2. ASSESSMENT AND PLAN: 1. Patient admitted for bilateral pneumonia with persistent findings; however, clinically improved. 2. History of renal transplant on chronic immunosuppression, now requiring hemodialysis. 3. Anemia, thrombocytopenia. 4. History of recent pacemaker placement. 5. Generalized deconditioning. 6. Chronic obstructive pulmonary disease. RECOMMENDATIONS: Continue oral sedation. When the patient is off sedation, he will be evaluated fo r possible weaning from ventilator. Continue current antibiotics and other supportive measures. Dictated By: PAOLA KENNEDY/BECKIE Conf#: [id number] DID#: [id number]
[2017-03-08] MEDS: PROPOFOL 100 ML IV SCH ×2 (16:34→21:47)
[2017-03-08] MEDS: FLUCONAZOLE 100 MG/NS (PMX) 50 ML IVPB SCH (16:39)
[2017-03-08] MEDS: ALBUTEROL 18 GM INHALER INH PRN (20:28)
[2017-03-08] MEDS: IPRATROPIUM (HFA) 12.9 GM INHALER INH PRN (20:28)
[2017-03-08] MEDS: DOXAZOSIN 2 MG TAB PO SCH (21:48)
[2017-03-08] MEDS: MEROPENEM 500MG/50 ML (PMX) 50 ML IVPB SCH (22:54)
[2017-03-09] VITALS (43 sets, daily range): BP systolic 123–151; BP diastolic 68–128; PULSE 60–68; RESP 9–37
[2017-03-09] MEDS: PROPOFOL 100 ML IV SCH ×3 (04:00→23:54)
[2017-03-09] MEDS: LANSOPRAZOLE 30 MG CAP GTB SCH (05:38)
[2017-03-09] MEDS: THIAMINE 100 MG TAB PO SCH (08:33)
[2017-03-09] MEDS: METOLAZONE 2.5 MG TAB PO SCH (08:33)
[2017-03-09] MEDS: predniSONE 5 MG TAB PO SCH (08:33)
[2017-03-09] MEDS: CYCLOSPORINE 25 MG CAP PO SCH ×2 (08:33→21:15)
[2017-03-09] MEDS: HYDROCORTISONE 100 MG INJ IV SCH ×2 (08:33→21:15)
[2017-03-09] MEDS: APIXABAN 5 MG TABLET PO SCH ×2 (08:33→21:15)
[2017-03-09] MEDS: FLUTICASONE 0.05% 16 GM NAS SPRAY NASAL SCH ×2 (08:34→21:14)
[2017-03-09] MEDS: LIDOCAINE 5% PATCH TD SCH (08:34)
[2017-03-09] MEDS: LIDOCAINE 5% 35 GM OINT TOP SCH ×2 (08:35→21:14)
[2017-03-09] MEDS: IPRATROPIUM (HFA) 12.9 GM INHALER INH PRN ×2 (08:39→20:27)
[2017-03-09] MEDS: ACETYLCYSTEINE 20% 4 ML VIAL NEB SCH ×2 (08:39→20:27)
[2017-03-09] MEDS: ALBUTEROL 18 GM INHALER INH PRN ×2 (08:40→20:27)
[2017-03-09] MEDS: oxyCODONE 5 MG TAB PO PRN ×2 (09:19→22:06)
--- NOTE | 2017-03-09 10:18 | CONS ---
Date/Time of Note Date/Time of Note DATE: 03/09/17 TIME: : Consult Date/Type/Reason Admit Date/Time Mar 01, 2017 at 13:35 Initial Consult Date 03/01/17 Type of Consultation: nephro Subjective s/p hd yetserday with good uf normotensive this morning. vent settings were reviewed d/w at the bedside MEDICATIONS: The patient's medications have been reviewed and reconciled. REVIEW OF SYSTEMS: A 14-point review of systems was conducted. Pertinent positives as obtained by reviewing medical records stated in HPI. PHYSICAL EXAMINATION: HEENT: Head is normocephalic, neck supple. CARDIOVASCULAR: Heart is regular rate, lungs show diminished breath sounds at the base. ABDOMEN: Soft, nontender to palpation without rebound or guarding. EXTREMITIES: Negative for clubbing, cyanosis. No trace edema. DERMATOLOGIC: No rashes. MUSCULOSKELETAL: No joint effusions. NEUROLOGIC: Limited exam as the patient is obtunded. Objective Vital Signs Date Time Temp Pulse Resp B/P Pulse Ox O2 Delivery O2 Flow Rate FiO2 03/09/17 07:00 63 9 146/81 100 Mechanical Ventilator 03/09/17 05:31 30 03/09/17 04:00 97.9 Intake and Output 03/08/17 03/08/17 03/09/17 15:00 23:00 07:00 Intake Total 368.872 ml 492.508 ml 545.488 ml Output Total 6300 ml Balance -5931.128 ml 492.508 ml 545.488 ml Results/Medications Result Diagram: 03/09/17 0540 03/09/17 0540 Results 24 hrs Laboratory Tests Test 03/09/17 05:40 White Blood Count 5.2 Red Blood Count 3.37 L Hemoglobin 9.6 L Hematocrit 31.7 L Mean Corpuscular Volume 94.1 Mean Corpuscular Hemoglobin 28.5 L Mean Corpuscular Hemoglobin Concent 30.3 L Red Cell Distribution Width 15.5 H Platelet Count 144 Mean Platelet Volume 10.5 H Neutrophils % 71.4 Lymphocytes % 16.3 Monocytes % 11.3 H Eosinophils % 0.0 Basophils % 0.0 Nucleated Red Blood Cells % 0.0 Neutrophils # 3.7 Lymphocytes # 0.9 Monocytes # 0.6 Eosinophils # 0.0 Basophils # 0.0 Nucleated Red Blood Cells # 0.0 Sodium Level 141 Potassium Level 4.1 Chloride Level 103 Carbon Dioxide Level 25 Anion Gap 17 H Blood Urea Nitrogen 69 H Creatinine 2.88 H Glucose Level 128 Calcium Level 8.2 L Phosphorus Level 5.2 H Magnesium Level 2.1 Total Bilirubin 0.3 Direct Bilirubin 0.10 Indirect Bilirubin 0.2 Aspartate Amino Transf (AST/SGOT) 92 H Alanine Aminotransferase (ALT/SGPT) 36 Alkaline Phosphatase 230 H Total Protein 6.7 Albumin 2.9 L Globulin 3.80 H Albumin/Globulin Ratio 0.76 Random Vancomycin Level 15.8 Medications Current Medications Acetaminophen (Tylenol Tab) 500 mg Q6H PRN PO PAIN AND OR ELEVATED TEMP Last administered on 03/07/17 08:35; Admin Dose 500 MG; Start 03/01/17 at 13:30 Lidocaine (Lidocaine 5% Oint) 1 applic BID TOP Last administered on 03/09/17 08:35; Admin Dose 1 APPLIC; Start 03/01/17 at 21:00 Lidocaine (Lidoderm) 1 patch DAILY TD Last administered on 03/09/17 08:34; Admin Dose 1 PATCH; Start 03/02/17 at 09:00 Metolazone (Zaroxolyn) 2.5 mg DAILY PO Last administered on 03/09/17 08:33; Admin Dose 2.5 MG; Start 03/02/17 at 09:00 Oxycodone HCl (Roxicodone) 2.5 mg Q6H PRN PO PAIN Last administered on 09:19; Admin Dose 2.5 MG; Start 03/01/17 at 13:30 Prednisone 5 mg 5 mg DAILY PO Last administered on 03/09/17 08:33; Admin Dose 5 MG; Start 03/02/17 at 09:00 Fluconazole/ Sodium Chloride (Diflucan 100 Mg/ NS (Pmx)) 50 ml @ 50 mls/hr Q24H IVPB Last administered on 03/08/17 16:39; Admin Dose 50 MLS/HR; Start at 16:30 Vancomycin HCl (Vanco Iv Per Pharmacy) PER PHARMACY DOSING NOTE XX ; Start 03/01 at 14:30 Eye Lubricant (Akwa Oint) 1 applic DAILY PRN RIGHT EYE ITCHING Last administered on 03/05/17 15:01; Admin Dose 1 APPLIC; Start 03/01/17 at 15:00 Bisacodyl (Dulcolax) 5 mg DAILY PRN PO CONSTIPATION Last administered on 10:14; Admin Dose 5 MG; Start 03/01/17 at 15:00 Cyclosporine (Sandimmune) 25 mg BID PO Last administered on 03/09/17 08:33; Admin Dose 25 MG; Start 03/01/17 at 21:00 Doxazosin Mesylate (Cardura) 2 mg QHS PO Last administered on 03/08/17 21:48 ; Admin Dose 2 MG; Start 03/01/17 at 21:00 Fluticasone Propionate (Flonase 0.05% Nasal) 1 spray BID NASAL Last administered on 03/09/17 08:34; Admin Dose 1 SPRAY; Start 03/01/17 at 21:00 Senna/Docusate Sodium (Senokot-S) 1 tab QHS PRN PO CONSTIPATION; Start at 15:00 Thiamine HCl (Vitamin B1) 100 mg DAILY PO Last administered on 03/09/17 08:33 ; Admin Dose 100 MG; Start 03/02/17 at 09:00 Eye Lubricant 1 drop 1 drop Q4H PRN BOTH EYES ITCHING EYES Last administered on 03/07/17 08:19; Admin Dose 1 DROP; Start 03/01/17 at 15:30 Norepinephrine 16 mg/Dextrose 500 ml @ 0 mls/hr TITRATE IV Last administered on 03/04/17 18:28; Admin Dose 3.75 MLS/HR; Start 03/01/17 at 17:30 Propofol 100 ml @ 2.406 mls/ hr Q12H IV Last administered on 03/09/17 04:00 ; Admin Dose 14.436 MLS/HR; Start 03/01/17 at 19:30 Midazolam HCl (Versed) 50 ml @ 1 mls/hr TITRATE IV ; Start 03/01/17 at 19:30 Apixaban (Eliquis) 2.5 mg BID PO Last administered on 03/09/17 08:33; Admin Dose 2.5 MG; Start 03/04/17 at 21:00 Lansoprazole 30 mg 30 mg DAILY@06 GTB Last administered on 03/09/17 05:38; Admin Dose 30 MG; Start 03/06/17 at 06:00 Meropenem/Sodium Chloride (Merrem 500mg/50 ml(Pmx)) 50 ml @ 100 mls/hr Q24H IVPB Last administered on 03/08/17 22:54; Admin Dose 100 MLS/HR; Start 03/06 at 21:00 Hydrocortisone 50 mg 50 mg BID IV Last administered on 03/09/17 08:33; Admin Dose 50 MG; Start 03/07/17 at 21:00 Vancomycin HCl (Vancocin) 250 ml @ 125 mls/hr Q96H IVPB ; Start 03/09/17 at 22 :00 Assessment/Plan Chief Complaint/Hosp Course 1. acute Ventilator-dependent respiratory failure. Etiology is likely secondary to multifocal pneumonia and congestive heart failure. The patient's CT scan was reviewed. The patient was intubated due to persistent hypoxemia. Plan at this point is to continue to treat underlying pneumonia. Continue ultrafiltration with hemodialysis. 2. Septic shock secondary to pneumonia. The patient is currently off pressor support. IV antibiotics will continue. will taper pulse steroid down to prednisone 5 daily 3. 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 The patient is currently dialysis dependent. He will receive intermittent hemodialysis as necessary. Will continue to monitor for any signs of recovery. 4. 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 The patient is currently in acute kidney injury as stated above, will continue current treatment plan as stated above. Continue current immunosuppressive regimen. 5. History of arrhythmia, status post pacemaker placement. Follow up with cardiology. 6. Anemia. Monitor H and H levels. 7. Mineral bone disorder. Monitor calcium and phosphorus levels. 8. Acute encephalopathy toxic metabolic. Continue to monitor. 9. Gastrointestinal and deep venous thrombosis prophylaxis. 10. History of hepatitis C. 11. Severe debility. 12. History of osteoarthritis. 13. History of gout. Problems: PRETTY SAVAGE MD Mar 09, 2017 10:18
--- NOTE | 2017-03-09 11:20 | CONS ---
Date/Time of Note Date/Time of Note DATE: 03/09/17 TIME: 11:16 Assessment/Plan Assessment/Plan Additional Assessment/Plan Continue to setting; AC of 20, tidal volume 500, PEEP of 5, 30% FiO2. Patient is on propofol at 30 mics per kilogram per minute. Assessment and recommendations; 1. Patient admitted with bilateral pneumonia leading to respiratory failure. 2. History of chronic immunosuppression with a history of renal transplant, however patient not requiring hemodialysis. 3. Thrombocytopenia. 4. History of recent pacemaker placement. 5. Mild pulmonary edema. Hold sedation. Once the patient is completely off sedative effect he will be again evaluated for possible weaning from ventilator. Meanwhile continue current supportive care. Consultation Date/Type/Reason Admit Date/Time Mar 01, 2017 at 13:35 Initial Consult Date 03/01/17 Type of Consultation: Pulmonary/critical care 24 HR Interval Summary Free Text/Dictation Patient's condition remains critical. Still requiring full ventilator support. Patient has failed numerous weaning trials from ventilator. General exam; elderly male, orally intubated, awake and alert. Currently in no distress. Exam/Review of Systems Vital Signs Vitals Vital Signs Date Time Temp Pulse Resp B/P Pulse Ox O2 Delivery O2 Flow Rate FiO2 03/09/17 08:00 60 03/09/17 07:00 9 146/81 100 Mechanical Ventilator 03/09/17 05:31 30 03/09/17 04:00 97.9 Intake and Output 03/08/17 03/08/17 03/09/17 15:00 23:00 07:00 Intake Total 368.872 ml 492.508 ml 545.488 ml Output Total 6300 ml Balance -5931.128 ml 492.508 ml 545.488 ml Exam HEENT exam; supple neck, no JVD. No lymphadenopathy. Midline trachea. No thyromegaly. Orally intubated. Patient has bilateral intraocular lens implants. Has multiple carious teeth. Chest exam; diminished breath on lung bases bilaterally. Upper lobes are clear to auscultation. S1-S2 audible, no murmurs. Pacemaker in left chest wall. Abdomen exam; soft, nondistended. Nontender. No organomegaly. Bowel sounds audible. Extremity exam; no peripheral edema. Patient has a multiple ecchymosis involving all 4 extremities. [employer] exam; patient is awake and follows simple commands. Results Result Diagram: 03/09/17 0540 03/09/17 0540 Results 24 hrs Laboratory Tests Test 03/09/17 05:40 White Blood Count 5.2 Red Blood Count 3.37 L Hemoglobin 9.6 L Hematocrit 31.7 L Mean Corpuscular Volume 94.1 Mean Corpuscular Hemoglobin 28.5 L Mean Corpuscular Hemoglobin Concent 30.3 L Red Cell Distribution Width 15.5 H Platelet Count 144 Mean Platelet Volume 10.5 H Neutrophils % 71.4 Lymphocytes % 16.3 Monocytes % 11.3 H Eosinophils % 0.0 Basophils % 0.0 Nucleated Red Blood Cells % 0.0 Neutrophils # 3.7 Lymphocytes # 0.9 Monocytes # 0.6 Eosinophils # 0.0 Basophils # 0.0 Nucleated Red Blood Cells # 0.0 Sodium Level 141 Potassium Level 4.1 Chloride Level 103 Carbon Dioxide Level 25 Anion Gap 17 H Blood Urea Nitrogen 69 H Creatinine 2.88 H Glucose Level 128 Calcium Level 8.2 L Phosphorus Level 5.2 H Magnesium Level 2.1 Total Bilirubin 0.3 Direct Bilirubin 0.10 Indirect Bilirubin 0.2 Aspartate Amino Transf (AST/SGOT) 92 H Alanine Aminotransferase (ALT/SGPT) 36 Alkaline Phosphatase 230 H Total Protein 6.7 Albumin 2.9 L Globulin 3.80 H Albumin/Globulin Ratio 0.76 Random Vancomycin Level 15.8 Medications Medications Current Medications Acetaminophen (Tylenol Tab) 500 mg Q6H PRN PO PAIN AND OR ELEVATED TEMP Last administered on 03/07/17 08:35; Admin Dose 500 MG; Start 03/01/17 at 13:30 Lidocaine (Lidocaine 5% Oint) 1 applic BID TOP Last administered on 03/09/17 08:35; Admin Dose 1 APPLIC; Start 03/01/17 at 21:00 Lidocaine (Lidoderm) 1 patch DAILY TD Last administered on 03/09/17 08:34; Admin Dose 1 PATCH; Start 03/02/17 at 09:00 Metolazone (Zaroxolyn) 2.5 mg DAILY PO Last administered on 03/09/17 08:33; Admin Dose 2.5 MG; Start 03/02/17 at 09:00 Oxycodone HCl (Roxicodone) 2.5 mg Q6H PRN PO PAIN Last administered on 09:19; Admin Dose 2.5 MG; Start 03/01/17 at 13:30 Prednisone 5 mg 5 mg DAILY PO Last administered on 03/09/17 08:33; Admin Dose 5 MG; Start 03/02/17 at 09:00 Fluconazole/ Sodium Chloride (Diflucan 100 Mg/ NS (Pmx)) 50 ml @ 50 mls/hr Q24H IVPB Last administered on 03/08/17 16:39; Admin Dose 50 MLS/HR; Start at 16:30 Vancomycin HCl (Vanco Iv Per Pharmacy) PER PHARMACY DOSING NOTE XX ; Start 03/01 at 14:30 Eye Lubricant (Akwa Oint) 1 applic DAILY PRN RIGHT EYE ITCHING Last administered on 03/05/17 15:01; Admin Dose 1 APPLIC; Start 03/01/17 at 15:00 Bisacodyl (Dulcolax) 5 mg DAILY PRN PO CONSTIPATION Last administered on 10:14; Admin Dose 5 MG; Start 03/01/17 at 15:00 Cyclosporine (Sandimmune) 25 mg BID PO Last administered on 03/09/17 08:33; Admin Dose 25 MG; Start 03/01/17 at 21:00 Doxazosin Mesylate (Cardura) 2 mg QHS PO Last administered on 03/08/17 21:48 ; Admin Dose 2 MG; Start 03/01/17 at 21:00 Fluticasone Propionate (Flonase 0.05% Nasal) 1 spray BID NASAL Last administered on 03/09/17 08:34; Admin Dose 1 SPRAY; Start 03/01/17 at 21:00 Senna/Docusate Sodium (Senokot-S) 1 tab QHS PRN PO CONSTIPATION; Start at 15:00 Thiamine HCl (Vitamin B1) 100 mg DAILY PO Last administered on 03/09/17 08:33 ; Admin Dose 100 MG; Start 03/02/17 at 09:00 Eye Lubricant 1 drop 1 drop Q4H PRN BOTH EYES ITCHING EYES Last administered on 03/07/17 08:19; Admin Dose 1 DROP; Start 03/01/17 at 15:30 Norepinephrine 16 mg/Dextrose 500 ml @ 0 mls/hr TITRATE IV Last administered on 03/04/17 18:28; Admin Dose 3.75 MLS/HR; Start 03/01/17 at 17:30 Propofol 100 ml @ 2.406 mls/ hr Q12H IV Last administered on 03/09/17 04:00 ; Admin Dose 14.436 MLS/HR; Start 03/01/17 at 19:30 Midazolam HCl (Versed) 50 ml @ 1 mls/hr TITRATE IV ; Start 03/01/17 at 19:30 Apixaban (Eliquis) 2.5 mg BID PO Last administered on 03/09/17 08:33; Admin Dose 2.5 MG; Start 03/04/17 at 21:00 Lansoprazole 30 mg 30 mg DAILY@06 GTB Last administered on 03/09/17 05:38; Admin Dose 30 MG; Start 03/06/17 at 06:00 Meropenem/Sodium Chloride (Merrem 500mg/50 ml(Pmx)) 50 ml @ 100 mls/hr Q24H IVPB Last administered on 03/08/17 22:54; Admin Dose 100 MLS/HR; Start 03/06 at 21:00 Hydrocortisone 50 mg 50 mg BID IV Last administered on 03/09/17 08:33; Admin Dose 50 MG; Start 03/07/17 at 21:00 Vancomycin HCl (Vancocin) 250 ml @ 125 mls/hr Q96H IVPB ; Start 03/09/17 at 22 :00 PAOLA RUZI Mar 09, 2017 11:20
[2017-03-09] MEDS: ARTIFICIAL TEARS 15 ML OPH BOTH EYES PRN (11:39)
[2017-03-09] MEDS: BALSAM PERU/CASTOR OIL 60 GM TUBE TOP SCH (12:45)
--- NOTE | 2017-03-09 15:01 | CONS ---
Date/Time of Note Date/Time of Note DATE: 03/09/17 TIME: 14:59 Consult Date/Type/Reason Admit Date/Time Mar 01, 2017 at 13:35 Initial Consult Date 03/01/17 Type of Consultation: cardiology Subjective CARDIOLOGY FOLLOW UP NOTE: S: Discussed with staff and rhythm strip is reviewed. Patient remains in demand ventricular pacemaker. he has had a short run of wide complex tachycardia ( appears to be Afib RVR). Patient is still on the vent in ICU. He remains off of Levophed drip. BP has been stable He has failed weaning so far. he has had moderate secretins no active bleeding is reported O: General: thin man, s/p trach on vent. HEENT: NC/AT. . NECK: . no stridor. CV: RRR. systolic murmur; no gallop or rubs. chest: s/p left sided PPM, no hematoma or bleeding PULM: no wheezing + diffuse rhonchi. GI: SOFT, NT, ND, no rebound or guarding Extremity:+ B/L LE edema. no clubbing. neuro: awake and responds appropriately Psych: calm and pleasant rectal: deferred : normal Objective Vital Signs Date Time Temp Pulse Resp B/P Pulse Ox O2 Delivery O2 Flow Rate FiO2 03/09/17 12:00 60 03/09/17 11:40 32 100 30 03/09/17 07:00 146/81 Mechanical Ventilator 03/09/17 04:00 97.9 Intake and Output 03/08/17 03/08/17 03/09/17 15:00 23:00 07:00 Intake Total 368.872 ml 492.508 ml 545.488 ml Output Total 6300 ml Balance -5931.128 ml 492.508 ml 545.488 ml Results/Medications Result Diagram: 03/09/17 0540 03/09/17 0540 Results 24 hrs Laboratory Tests Test 03/09/17 05:40 White Blood Count 5.2 Red Blood Count 3.37 L Hemoglobin 9.6 L Hematocrit 31.7 L Mean Corpuscular Volume 94.1 Mean Corpuscular Hemoglobin 28.5 L Mean Corpuscular Hemoglobin Concent 30.3 L Red Cell Distribution Width 15.5 H Platelet Count 144 Mean Platelet Volume 10.5 H Neutrophils % 71.4 Lymphocytes % 16.3 Monocytes % 11.3 H Eosinophils % 0.0 Basophils % 0.0 Nucleated Red Blood Cells % 0.0 Neutrophils # 3.7 Lymphocytes # 0.9 Monocytes # 0.6 Eosinophils # 0.0 Basophils # 0.0 Nucleated Red Blood Cells # 0.0 Sodium Level 141 Potassium Level 4.1 Chloride Level 103 Carbon Dioxide Level 25 Anion Gap 17 H Blood Urea Nitrogen 69 H Creatinine 2.88 H Glucose Level 128 Calcium Level 8.2 L Phosphorus Level 5.2 H Magnesium Level 2.1 Total Bilirubin 0.3 Direct Bilirubin 0.10 Indirect Bilirubin 0.2 Aspartate Amino Transf (AST/SGOT) 92 H Alanine Aminotransferase (ALT/SGPT) 36 Alkaline Phosphatase 230 H Total Protein 6.7 Albumin 2.9 L Globulin 3.80 H Albumin/Globulin Ratio 0.76 Random Vancomycin Level 15.8 Medications Current Medications Acetaminophen (Tylenol Tab) 500 mg Q6H PRN PO PAIN AND OR ELEVATED TEMP Last administered on 03/07/17 08:35; Admin Dose 500 MG; Start 03/01/17 at 13:30 Lidocaine (Lidocaine 5% Oint) 1 applic BID TOP Last administered on 03/09/17 08:35; Admin Dose 1 APPLIC; Start 03/01/17 at 21:00 Lidocaine (Lidoderm) 1 patch DAILY TD Last administered on 03/09/17 08:34; Admin Dose 1 PATCH; Start 03/02/17 at 09:00 Metolazone (Zaroxolyn) 2.5 mg DAILY PO Last administered on 03/09/17 08:33; Admin Dose 2.5 MG; Start 03/02/17 at 09:00 Oxycodone HCl (Roxicodone) 2.5 mg Q6H PRN PO PAIN Last administered on 09:19; Admin Dose 2.5 MG; Start 03/01/17 at 13:30 Prednisone 5 mg 5 mg DAILY PO Last administered on 03/09/17 08:33; Admin Dose 5 MG; Start 03/02/17 at 09:00 Fluconazole/ Sodium Chloride (Diflucan 100 Mg/ NS (Pmx)) 50 ml @ 50 mls/hr Q24H IVPB Last administered on 03/08/17 16:39; Admin Dose 50 MLS/HR; Start at 16:30 Vancomycin HCl (Vanco Iv Per Pharmacy) PER PHARMACY DOSING NOTE XX ; Start 03/01 at 14:30 Eye Lubricant (Akwa Oint) 1 applic DAILY PRN RIGHT EYE ITCHING Last administered on 03/05/17 15:01; Admin Dose 1 APPLIC; Start 03/01/17 at 15:00 Bisacodyl (Dulcolax) 5 mg DAILY PRN PO CONSTIPATION Last administered on 10:14; Admin Dose 5 MG; Start 03/01/17 at 15:00 Cyclosporine (Sandimmune) 25 mg BID PO Last administered on 03/09/17 08:33; Admin Dose 25 MG; Start 03/01/17 at 21:00 Doxazosin Mesylate (Cardura) 2 mg QHS PO Last administered on 03/08/17 21:48 ; Admin Dose 2 MG; Start 03/01/17 at 21:00 Fluticasone Propionate (Flonase 0.05% Nasal) 1 spray BID NASAL Last administered on 03/09/17 08:34; Admin Dose 1 SPRAY; Start 03/01/17 at 21:00 Senna/Docusate Sodium (Senokot-S) 1 tab QHS PRN PO CONSTIPATION; Start at 15:00 Thiamine HCl (Vitamin B1) 100 mg DAILY PO Last administered on 03/09/17 08:33 ; Admin Dose 100 MG; Start 03/02/17 at 09:00 Eye Lubricant 1 drop 1 drop Q4H PRN BOTH EYES ITCHING EYES Last administered on 03/09/17 11:39; Admin Dose 1 DROP; Start 03/01/17 at 15:30 Norepinephrine 16 mg/Dextrose 500 ml @ 0 mls/hr TITRATE IV Last administered on 03/04/17 18:28; Admin Dose 3.75 MLS/HR; Start 03/01/17 at 17:30 Propofol 100 ml @ 2.406 mls/ hr Q12H IV Last administered on 03/09/17 04:00 ; Admin Dose 14.436 MLS/HR; Start 03/01/17 at 19:30 Midazolam HCl (Versed) 50 ml @ 1 mls/hr TITRATE IV ; Start 03/01/17 at 19:30 Apixaban (Eliquis) 2.5 mg BID PO Last administered on 10/13/17at 08:33; Admin Dose 2.5 MG; Start 03/04/17 at 21:00 Lansoprazole 30 mg 30 mg DAILY@06 GTB Last administered on 03/09/17 05:38; Admin Dose 30 MG; Start 03/06/17 at 06:00 Meropenem/Sodium Chloride (Merrem 500mg/50 ml(Pmx)) 50 ml @ 100 mls/hr Q24H IVPB Last administered on 03/08/17 22:54; Admin Dose 100 MLS/HR; Start 03/06 at 21:00 Hydrocortisone 50 mg 50 mg BID IV Last administered on 03/09/17 08:33; Admin Dose 50 MG; Start 03/07/17 at 21:00 Vancomycin HCl (Vancocin) 250 ml @ 125 mls/hr Q96H IVPB ; Start 03/09/17 at 22 :00 Assessment/Plan Chief Complaint/Hosp Course 1. Acute on-chronic hypoxemic, hypercapnic respiratory failure, status post intubation, now on the ventilator. 2. Sick sinus syndrome, status post permanent pacemaker. 3. Atrial fibrillation with a slow ventricular response, heart rate under control with the pacemaker. 4. Septic shock: BP has improved now and pt is off of evophed drip now 5. Pneumonia. 6. Anemia. 7. History of hepatitis C. 8. History of renal transplant. 9. Renal failure, status post hemodialysis. 10. NSVT RECOMMENDATIONS: Antibiotic is being managed as per Infectious Disease recommendations. off of Procardia due to hypotension. Cont eliquis as long as no bleeding Antirejection medications as per Renal. Dialysis as per Renal. replace lytes prn Ventilator support, respiratory care will be continued. weaning trial have failed so far. to be tried again next 1-2 days Continue with the ICU care. THANK YOU ROLAND DORSEY MD [facility] . Problems: ROLAND DORSEY MD Mar 09, 2017 15:01
[2017-03-09] MEDS: FLUCONAZOLE 100 MG/NS (PMX) 50 ML IVPB SCH (16:47)
[2017-03-09] MEDS: DOXAZOSIN 2 MG TAB PO SCH (21:15)
[2017-03-09] MEDS: MEROPENEM 500MG/50 ML (PMX) 50 ML IVPB SCH (21:16)
[2017-03-09] MEDS: VANCOMYCIN 1 GM in NS 250 ML IVPB SCH (22:06)
[2017-03-10] VITALS (56 sets, daily range): BP systolic 106–145; BP diastolic 58–132; PULSE 60–65; RESP 14–40
[2017-03-10] MEDS: LANSOPRAZOLE 30 MG CAP GTB SCH (06:17)
[2017-03-10] MEDS: PROPOFOL 100 ML IV SCH (06:26)
[2017-03-10] MEDS: FLUTICASONE 0.05% 16 GM NAS SPRAY NASAL SCH ×2 (08:42→20:10)
[2017-03-10] MEDS: predniSONE 5 MG TAB PO SCH ×2 (08:54→12:13)
[2017-03-10] MEDS: CYCLOSPORINE 25 MG CAP PO SCH ×3 (08:54→20:09)
[2017-03-10] MEDS: THIAMINE 100 MG TAB PO SCH ×2 (08:54→12:14)
[2017-03-10] MEDS: HYDROCORTISONE 100 MG INJ IV SCH ×2 (08:54→20:09)
[2017-03-10] MEDS: METOLAZONE 2.5 MG TAB PO SCH ×2 (08:54→12:14)
[2017-03-10] MEDS: LIDOCAINE 5% PATCH TD SCH (08:55)
[2017-03-10] MEDS: APIXABAN 5 MG TABLET PO SCH ×3 (08:56→20:09)
[2017-03-10] MEDS: BALSAM PERU/CASTOR OIL 60 GM TUBE TOP SCH (08:56)
[2017-03-10] MEDS: ALBUTEROL 18 GM INHALER INH PRN ×2 (09:09→19:43)
[2017-03-10] MEDS: IPRATROPIUM (HFA) 12.9 GM INHALER INH PRN ×2 (09:09→19:43)
[2017-03-10] MEDS: ACETYLCYSTEINE 20% 4 ML VIAL NEB SCH ×2 (09:10→19:44)
--- NOTE | 2017-03-10 09:12 | CONS ---
Date/Time of Note Date/Time of Note DATE: 03/10/17 TIME: 09:11 Assessment/Plan Assessment/Plan Chief Complaint/Hosp Course ID PROGRESS NOTE CURRENT ABX: DAY # => Vanco IV, Merrem, Diflucan 24H INTERVAL SUMMARY * Awake, alert, responds appropriately, comfortable on the Vent * Current in HD session via [facility] PermCath looks clean * VSS, NAD, no fevers Physical Exam Physical Exam Constitutional: VSS, NAD HEENT: ETT-> Secure to face and vent Neck: Supple, full ROM Respiratory: Clear anterior, vented Cardiovascular: nl pulses, regular rate and rhythm Gastrointestinal: Soft, NT Extremities: Warm Neurological: Appears grossly intact ID ASSESSMENT 66 yo M admit with: 1. Resolving sepsis. 2. Resolving pneumonia. 3. Acute respiratory failure, tolerate weaning. 4. Aurora albicans urinary tract infection. 5. End-stage renal disease, hemodialysis dependent. 6. History of kidney transplant. 7. History of vancomycin-resistant enterococcus stool colonization. 8. Atrial fibrillation with slow ventricular response, status post permanent pacemaker placement on 02/27/2017. (- )MRSA Nares- ABX ALLERGIES: ERYTHROMYCIN CURRENT ABX: DAY # => Vanco IV, Merrem, Diflucan ID RECOMMENDATIONS 1. Continue current ABX through the weaning process 2. Taper when risk of aspiration resolves 3. Weaning per pulmonary . Problems: Consultation Date/Type/Reason Admit Date/Time Mar 01, 2017 at 13:35 Initial Consult Date 03/01/17 Type of Consultation: ID Exam/Review of Systems Vital Signs Vitals Vital Signs Date Time Temp Pulse Resp B/P Pulse Ox O2 Delivery O2 Flow Rate FiO2 03/10/17 08:00 63 03/10/17 06:00 19 121/68 100 Mechanical Ventilator 03/10/17 05:40 30 03/10/17 04:00 97.8 Intake and Output 03/09/17 03/09/17 03/10/17 15:00 23:00 07:00 Intake Total 294.4 ml 525.716 ml 863.082 ml Balance 294.4 ml 525.716 ml 863.082 ml Results Result Diagram: 03/09/17 0540 03/10/17 0535 Results 24 hrs Laboratory Tests Test 03/10/17 05:35 Sodium Level 140 Potassium Level 4.8 Chloride Level 103 Carbon Dioxide Level 24 Anion Gap 18 H Blood Urea Nitrogen 92 H Creatinine 3.48 H Glucose Level 105 Calcium Level 8.1 L Medications Medications Current Medications Acetaminophen (Tylenol Tab) 500 mg Q6H PRN PO PAIN AND OR ELEVATED TEMP Last administered on 03/07/17 08:35; Admin Dose 500 MG; Start 03/01/17 at 13:30 Lidocaine (Lidocaine 5% Oint) 1 applic BID TOP Last administered on 03/09/17 21:14; Admin Dose 1 APPLIC; Start 03/01/17 at 21:00 Lidocaine (Lidoderm) 1 patch DAILY TD Last administered on 03/10/17 08:55; Admin Dose 1 PATCH; Start 03/02/17 at 09:00 Metolazone (Zaroxolyn) 2.5 mg DAILY PO Last administered on 03/10/17 08:54; Admin Dose 2.5 MG; Start 03/02/17 at 09:00 Oxycodone HCl (Roxicodone) 2.5 mg Q6H PRN PO PAIN Last administered on 22:06; Admin Dose 2.5 MG; Start 03/01/17 at 13:30 Prednisone 5 mg 5 mg DAILY PO Last administered on 03/10/17 08:54; Admin Dose 5 MG; Start 03/02/17 at 09:00 Fluconazole/ Sodium Chloride (Diflucan 100 Mg/ NS (Pmx)) 50 ml @ 50 mls/hr Q24H IVPB Last administered on 03/09/17 16:47; Admin Dose 50 MLS/HR; Start at 16:30 Vancomycin HCl (Vanco Iv Per Pharmacy) PER PHARMACY DOSING NOTE XX ; Start 03/01 at 14:30 Eye Lubricant (Akwa Oint) 1 applic DAILY PRN RIGHT EYE ITCHING Last administered on 03/05/17 15:01; Admin Dose 1 APPLIC; Start 03/01/17 at 15:00 Bisacodyl (Dulcolax) 5 mg DAILY PRN PO CONSTIPATION Last administered on 10:14; Admin Dose 5 MG; Start 03/01/17 at 15:00 Cyclosporine (Sandimmune) 25 mg BID PO Last administered on 03/10/17 08:54; Admin Dose 25 MG; Start 03/01/17 at 21:00 Doxazosin Mesylate (Cardura) 2 mg QHS PO Last administered on 03/09/17 21:15 ; Admin Dose 2 MG; Start 03/01/17 at 21:00 Fluticasone Propionate (Flonase 0.05% Nasal) 1 spray BID NASAL Last administered on 03/09/17 21:14; Admin Dose 1 SPRAY; Start 03/01/17 at 21:00 Senna/Docusate Sodium (Senokot-S) 1 tab QHS PRN PO CONSTIPATION; Start at 15:00 Thiamine HCl (Vitamin B1) 100 mg DAILY PO Last administered on 03/10/17 08:54 ; Admin Dose 100 MG; Start 03/02/17 at 09:00 Eye Lubricant 1 drop 1 drop Q4H PRN BOTH EYES ITCHING EYES Last administered on 03/09/17 11:39; Admin Dose 1 DROP; Start 03/01/17 at 15:30 Norepinephrine 16 mg/Dextrose 500 ml @ 0 mls/hr TITRATE IV Last administered on 03/04/17 18:28; Admin Dose 3.75 MLS/HR; Start 03/01/17 at 17:30 Propofol 100 ml @ 2.406 mls/ hr Q12H IV Last administered on 03/10/17 06:26 ; Admin Dose 14.436 MLS/HR; Start 03/01/17 at 19:30 Midazolam HCl (Versed) 50 ml @ 1 mls/hr TITRATE IV ; Start 03/01/17 at 19:30 Apixaban (Eliquis) 2.5 mg BID PO Last administered on 03/10/17 08:56; Admin Dose 2.5 MG; Start 03/04/17 at 21:00 Lansoprazole 30 mg 30 mg DAILY@06 GTB Last administered on 03/10/17 06:17; Admin Dose 30 MG; Start 03/06/17 at 06:00 Meropenem/Sodium Chloride (Merrem 500mg/50 ml(Pmx)) 50 ml @ 100 mls/hr Q24H IVPB Last administered on 03/09/17 21:16; Admin Dose 100 MLS/HR; Start 03/06 at 21:00 Hydrocortisone 50 mg 50 mg BID IV Last administered on 03/10/17 08:54; Admin Dose 50 MG; Start 03/07/17 at 21:00 Vancomycin HCl (Vancocin) 250 ml @ 125 mls/hr Q96H IVPB Last administered on 03/09/17t 22:06; Admin Dose 125 MLS/HR; Start 03/09/17 at 22:00 LEVI QUEZADA NP Mar 10, 2017 09:12
--- NOTE | 2017-03-10 09:48 | CONS ---
Date/Time of Note Date/Time of Note DATE: 03/10/17 TIME: 09:46 Consult Date/Type/Reason Admit Date/Time Mar 01, 2017 at 13:35 Initial Consult Date 03/01/17 Type of Consultation: nephrology Subjective pt. seen and examined on hd, awake, good blood flow. on vent, no distress id eval appreciated d/w rn at bedside. Objective Vital Signs Date Time Temp Pulse Resp B/P Pulse Ox O2 Delivery O2 Flow Rate FiO2 03/10/17 09:36 60 03/10/17 08:50 25 03/10/17 06:00 121/68 100 Mechanical Ventilator 03/10/17 05:40 30 03/10/17 04:00 97.8 Intake and Output 03/09/17 03/09/17 03/10/17 15:00 23:00 07:00 Intake Total 294.4 ml 525.716 ml 863.082 ml Balance 294.4 ml 525.716 ml 863.082 ml Exam General: thin man, s/p trach on vent. HEENT: NC/AT. . NECK: . no stridor. CV: RRR. systolic murmur; no gallop or rubs. chest: s/p left sided PPM, no hematoma or bleeding PULM: no wheezing + diffuse rhonchi. GI: SOFT, NT, ND, no rebound or guarding Extremity:+ B/L LE edema. no clubbing. neuro: awake and responds appropriately Psych: calm and pleasant rectal: deferred : normal Results/Medications Result Diagram: 03/09/17 0540 03/10/17 0535 Results 24 hrs Laboratory Tests Test 03/10/17 05:35 Sodium Level 140 Potassium Level 4.8 Chloride Level 103 Carbon Dioxide Level 24 Anion Gap 18 H Blood Urea Nitrogen 92 H Creatinine 3.48 H Glucose Level 105 Calcium Level 8.1 L Medications Current Medications Acetaminophen (Tylenol Tab) 500 mg Q6H PRN PO PAIN AND OR ELEVATED TEMP Last administered on 03/07/17 08:35; Admin Dose 500 MG; Start 03/01/17 at 13:30 Lidocaine (Lidocaine 5% Oint) 1 applic BID TOP Last administered on 03/09/17 21:14; Admin Dose 1 APPLIC; Start 03/01/17 at 21:00 Lidocaine (Lidoderm) 1 patch DAILY TD Last administered on 03/10/17 08:55; Admin Dose 1 PATCH; Start 03/02/17 at 09:00 Metolazone (Zaroxolyn) 2.5 mg DAILY PO Last administered on 03/10/17 08:54; Admin Dose 2.5 MG; Start 03/02/17 at 09:00 Oxycodone HCl (Roxicodone) 2.5 mg Q6H PRN PO PAIN Last administered on 22:06; Admin Dose 2.5 MG; Start 03/01/17 at 13:30 Prednisone 5 mg 5 mg DAILY PO Last administered on 03/10/17 08:54; Admin Dose 5 MG; Start 03/02/17 at 09:00 Fluconazole/ Sodium Chloride (Diflucan 100 Mg/ NS (Pmx)) 50 ml @ 50 mls/hr Q24H IVPB Last administered on 03/09/17 16:47; Admin Dose 50 MLS/HR; Start at 16:30 Vancomycin HCl (Vanco Iv Per Pharmacy) PER PHARMACY DOSING NOTE XX ; Start 03/01 at 14:30 Eye Lubricant (Akwa Oint) 1 applic DAILY PRN RIGHT EYE ITCHING Last administered on 03/05/17 15:01; Admin Dose 1 APPLIC; Start 03/01/17 at 15:00 Bisacodyl (Dulcolax) 5 mg DAILY PRN PO CONSTIPATION Last administered on 10:14; Admin Dose 5 MG; Start 03/01/17 at 15:00 Cyclosporine (Sandimmune) 25 mg BID PO Last administered on 03/10/17 08:54; Admin Dose 25 MG; Start 03/01/17 at 21:00 Doxazosin Mesylate (Cardura) 2 mg QHS PO Last administered on 03/09/17 21:15 ; Admin Dose 2 MG; Start 03/01/17 at 21:00 Fluticasone Propionate (Flonase 0.05% Nasal) 1 spray BID NASAL Last administered on 03/09/17 21:14; Admin Dose 1 SPRAY; Start 03/01/17 at 21:00 Senna/Docusate Sodium (Senokot-S) 1 tab QHS PRN PO CONSTIPATION; Start at 15:00 Thiamine HCl (Vitamin B1) 100 mg DAILY PO Last administered on 03/10/17 08:54 ; Admin Dose 100 MG; Start 03/02/17 at 09:00 Eye Lubricant 1 drop 1 drop Q4H PRN BOTH EYES ITCHING EYES Last administered on 03/09/17 11:39; Admin Dose 1 DROP; Start 03/01/17 at 15:30 Norepinephrine 16 mg/Dextrose 500 ml @ 0 mls/hr TITRATE IV Last administered on 03/04/17 18:28; Admin Dose 3.75 MLS/HR; Start 03/01/17 at 17:30 Propofol 100 ml @ 2.406 mls/ hr Q12H IV Last administered on 03/10/17 06:26 ; Admin Dose 14.436 MLS/HR; Start 03/01/17 at 19:30 Midazolam HCl (Versed) 50 ml @ 1 mls/hr TITRATE IV ; Start 03/01/17 at 19:30 Apixaban (Eliquis) 2.5 mg BID PO Last administered on 03/10/17 08:56; Admin Dose 2.5 MG; Start 03/04/17 at 21:00 Lansoprazole 30 mg 30 mg DAILY@06 GTB Last administered on 03/10/17 06:17; Admin Dose 30 MG; Start 03/06/17 at 06:00 Meropenem/Sodium Chloride (Merrem 500mg/50 ml(Pmx)) 50 ml @ 100 mls/hr Q24H IVPB Last administered on 03/09/17 21:16; Admin Dose 100 MLS/HR; Start 03/06 at 21:00 Hydrocortisone 50 mg 50 mg BID IV Last administered on 03/10/17 08:54; Admin Dose 50 MG; Start 03/07/17 at 21:00 Vancomycin HCl (Vancocin) 250 ml @ 125 mls/hr Q96H IVPB Last administered on 03/09/17 22:06; Admin Dose 125 MLS/HR; Start 03/09/17 at 22:00 Assessment/Plan Chief Complaint/Hosp Course 1. acute Ventilator-dependent respiratory failure. Etiology is likely secondary to multifocal pneumonia and congestive heart failure. The patient's CT scan was reviewed. The patient was intubated due to persistent hypoxemia. Plan at this point is to continue to treat underlying pneumonia. Continue ultrafiltration with hemodialysis. 2. Septic shock secondary to pneumonia. The patient is currently off pressor support. IV antibiotics will continue. will taper pulse steroid down to prednisone 5 daily 3. 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 The patient is currently dialysis dependent. He will receive intermittent hemodialysis as necessary. Will continue to monitor for any signs of recovery. line ok. 4. 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 The patient is currently in acute kidney injury as stated above, will continue current treatment plan as stated above. Continue current immunosuppressive regimen. 5. History of arrhythmia, status post pacemaker placement. Follow up with cardiology. 6. Anemia. Monitor H and H levels. 7. Mineral bone disorder. Monitor calcium and phosphorus levels. 8. Acute encephalopathy toxic metabolic. Continue to monitor. 9. Gastrointestinal and deep venous thrombosis prophylaxis. 10. History of hepatitis C. 11. Severe debility. 12. History of osteoarthritis. 13. History of gout. Problems: PRETTY SAVAGE MD Mar 10, 2017 09:48
--- NOTE | 2017-03-10 10:11 | CONS ---
Date/Time of Note Date/Time of Note DATE: 03/10/17 TIME: 10:10 Consultation Date/Type/Reason Admit Date/Time Mar 01, 2017 at 13:35 Initial Consult Date 03/01/17 Type of Consultation: pulm/cc 24 HR Interval Summary Free Text/Dictation dictated [id number] Exam/Review of Systems Vital Signs Vitals Vital Signs Date Time Temp Pulse Resp B/P Pulse Ox O2 Delivery O2 Flow Rate FiO2 03/10/17 09:50 60 03/10/17 08:50 25 03/10/17 06:00 121/68 100 Mechanical Ventilator 03/10/17 05:40 30 03/10/17 04:00 97.8 Intake and Output 03/09/17 03/09/17 03/10/17 14:59 22:59 06:59 Intake Total 268.836 ml 458.874 ml 969.924 ml Balance 268.836 ml 458.874 ml 969.924 ml Results Result Diagram: 03/09/17 0540 03/10/17 0535 Results 24 hrs Laboratory Tests Test 03/10/17 05:35 Sodium Level 140 Potassium Level 4.8 Chloride Level 103 Carbon Dioxide Level 24 Anion Gap 18 H Blood Urea Nitrogen 92 H Creatinine 3.48 H Glucose Level 105 Calcium Level 8.1 L Medications Medications Current Medications Acetaminophen (Tylenol Tab) 500 mg Q6H PRN PO PAIN AND OR ELEVATED TEMP Last administered on 03/07/17 08:35; Admin Dose 500 MG; Start 03/01/17 at 13:30 Lidocaine (Lidocaine 5% Oint) 1 applic BID TOP Last administered on 03/09/17 21:14; Admin Dose 1 APPLIC; Start 03/01/17 at 21:00 Lidocaine (Lidoderm) 1 patch DAILY TD Last administered on 03/10/17 08:55; Admin Dose 1 PATCH; Start 03/02/17 at 09:00 Metolazone (Zaroxolyn) 2.5 mg DAILY PO Last administered on 03/09/17 08:33; Admin Dose 2.5 MG; Start 03/02/17 at 09:00 Oxycodone HCl (Roxicodone) 2.5 mg Q6H PRN PO PAIN Last administered on 22:06; Admin Dose 2.5 MG; Start 03/01/17 at 13:30 Prednisone 5 mg 5 mg DAILY PO Last administered on 03/09/17 08:33; Admin Dose 5 MG; Start 03/02/17 at 09:00 Fluconazole/ Sodium Chloride (Diflucan 100 Mg/ NS (Pmx)) 50 ml @ 50 mls/hr Q24H IVPB Last administered on 03/09/17 16:47; Admin Dose 50 MLS/HR; Start at 16:30 Vancomycin HCl (Vanco Iv Per Pharmacy) PER PHARMACY DOSING NOTE XX ; Start 03/01 at 14:30 Eye Lubricant (Akwa Oint) 1 applic DAILY PRN RIGHT EYE ITCHING Last administered on 03/05/17 15:01; Admin Dose 1 APPLIC; Start 03/01/17 at 15:00 Bisacodyl (Dulcolax) 5 mg DAILY PRN PO CONSTIPATION Last administered on 10:14; Admin Dose 5 MG; Start 03/01/17 at 15:00 Cyclosporine (Sandimmune) 25 mg BID PO Last administered on 03/09/17 21:15; Admin Dose 25 MG; Start 03/01/17 at 21:00 Doxazosin Mesylate (Cardura) 2 mg QHS PO Last administered on 03/09/17 21:15 ; Admin Dose 2 MG; Start 03/01/17 at 21:00 Fluticasone Propionate (Flonase 0.05% Nasal) 1 spray BID NASAL Last administered on 03/09/17 21:14; Admin Dose 1 SPRAY; Start 03/01/17 at 21:00 Senna/Docusate Sodium (Senokot-S) 1 tab QHS PRN PO CONSTIPATION; Start at 15:00 Thiamine HCl (Vitamin B1) 100 mg DAILY PO Last administered on 03/09/17 08:33 ; Admin Dose 100 MG; Start 03/02/17 at 09:00 Eye Lubricant 1 drop 1 drop Q4H PRN BOTH EYES ITCHING EYES Last administered on 03/09/17 11:39; Admin Dose 1 DROP; Start 03/01/17 at 15:30 Norepinephrine 16 mg/Dextrose 500 ml @ 0 mls/hr TITRATE IV Last administered on 03/04/17 18:28; Admin Dose 3.75 MLS/HR; Start 03/01/17 at 17:30 Propofol 100 ml @ 2.406 mls/ hr Q12H IV Last administered on 03/10/17 06:26 ; Admin Dose 14.436 MLS/HR; Start 03/01/17 at 19:30 Midazolam HCl (Versed) 50 ml @ 1 mls/hr TITRATE IV ; Start 03/01/17 at 19:30 Apixaban (Eliquis) 2.5 mg BID PO Last administered on 03/09/17 21:15; Admin Dose 2.5 MG; Start 03/04/17 at 21:00 Lansoprazole 30 mg 30 mg DAILY@06 GTB Last administered on 03/10/17 06:17; Admin Dose 30 MG; Start 03/06/17 at 06:00 Meropenem/Sodium Chloride (Merrem 500mg/50 ml(Pmx)) 50 ml @ 100 mls/hr Q24H IVPB Last administered on 03/09/17 21:16; Admin Dose 100 MLS/HR; Start 03/06 at 21:00 Hydrocortisone 50 mg 50 mg BID IV Last administered on 03/10/17 08:54; Admin Dose 50 MG; Start 03/07/17 at 21:00 Vancomycin HCl (Vancocin) 250 ml @ 125 mls/hr Q96H IVPB Last administered on 03/09/17 22:06; Admin Dose 125 MLS/HR; Start 03/09/17 at 22:00 PAOLA RUIZ Mar 10, 2017 10:11
[2017-03-10] MEDS: EPOETIN 4000 UNITS/1 ML INJ (ESRD) SC SCH (10:46)
[2017-03-10] MEDS: LIDOCAINE 5% 35 GM OINT TOP SCH ×2 (12:14→20:11)
[2017-03-10] MEDS: ARTIFICIAL TEARS 15 ML OPH BOTH EYES PRN (12:17)
--- NOTE | 2017-03-10 14:12 | PN ---
DATE: 03/10/2017 HISTORY OF PRESENT ILLNESS: Mr. Kern's condition remains tenuous at best. The patient has failed n umerous weaning trials despite adequate mental status. The patient, however, has remained hemodynam ically stable. PHYSICAL EXAMINATION: GENERAL: Elderly male, orally intubated, awake and alert, currently in no distress. The patient is following commands despite being on propofol drip. VITAL SIGNS: Temperature 98 degree Fahrenheit, respiratory rate is 18 per minute, heart rate 80 per minute, atrial flutter with paced rhythm, blood pressure 130/70, O2 sat 98%. Patient is currently on SIMV of 12, tidal volume 500, PEEP of 5, pressure support 30% FIO2. Urine output remains poor on account of end-stage renal disease. HEENT: Supple neck, no JVD, no lymphadenopathy, midline trachea, no thyromegaly. Orally intubated. Patient does have multiple carious teeth. Pupils are small bilaterally. CHEST: Diminished breath sounds at lung bases upper lobes are clear. HEART: S1, S2 audible. No murmurs irregular rhythm. Pacemaker in left chest wall. ABDOMEN: Soft, nondistended. No organomegaly. Bowel sounds audible. EXTREMITIES: No edema. NEUROLOGIC: Patient is awake and follows simple commands. LABORATORY DATA: From today are pending. MEDICATIONS: 1. Propofol 30 mcg/kg per minute. 2. Fluconazole 100 mg IV daily. 3. Meropenem 500 mg every q.24 hours. 4. Vancomycin intravenous, dosed by the pharmacy q.96 hours. 5. Albuterol q.6h. 6. Apixaban 2.5 mg b.i.d. 7. Cyclosporine 25 mg b.i.d. 8. Cardura 2 mg daily. 9. Epogen 8000 units after dialysis. 10. Solu-Cortef 50 mg q.12h. 11. Zaroxolyn 2.5 mg daily. 12. Thiamine 100 mg daily. ASSESSMENT: 1. Patient admitted with bilateral pneumonia leading to respiratory failure with significant radiol ogical improvement. 2. History of chronic immunosuppression status post renal transplant. Patient, however, now has re nal failure requiring hemodialysis. 3. Chronic immunosuppression. 4. History of recent pacemaker. 5. Atrial flutter. 6. Mild pulmonary edema with interval improvement. 7. Patient has failed numerous weaning trials from ventilator. RECOMMENDATIONS: Hold sedation again. Once the patient is completely off sedative effect he will a gain be evaluated for possible extubation. The patient possibly could be requiring a tracheostomy s oon if he is unable to be extubated. Meanwhile, continue other supportive care. Dictated By: PAOLA KENNEDY/BECKIE Conf#: [id number] DID#: [id number]
[2017-03-10] MEDS ORDERED: PENDING SANTYL ORDER FOR WOUND CARE XX PRN (15:00)
[2017-03-10] MEDS: FLUCONAZOLE 100 MG/NS (PMX) 50 ML IVPB SCH (16:12)
[2017-03-10] MEDS: ACETAMINOPHEN 500 MG TAB PO PRN (20:08)
[2017-03-10] MEDS: oxyCODONE 5 MG TAB PO PRN (20:09)
[2017-03-10] MEDS: MEROPENEM 500MG/50 ML (PMX) 50 ML IVPB SCH (20:10)
[2017-03-10] MEDS: DOXAZOSIN 2 MG TAB PO SCH (20:14)
[2017-03-11] VITALS (49 sets, daily range): BP systolic 130–150; BP diastolic 64–133; PULSE 60–80; RESP 14–40
[2017-03-11] MEDS: LANSOPRAZOLE 30 MG CAP GTB SCH (06:04)
[2017-03-11] MEDS: PROPOFOL 100 ML IV SCH ×2 (06:04→19:30)
[2017-03-11] MEDS: CYCLOSPORINE 25 MG CAP PO SCH ×2 (08:17→21:31)
[2017-03-11] MEDS: LIDOCAINE 5% PATCH TD SCH (08:17)
[2017-03-11] MEDS: predniSONE 5 MG TAB PO SCH (08:18)
[2017-03-11] MEDS: HYDROCORTISONE 100 MG INJ IV SCH ×2 (08:18→21:40)
[2017-03-11] MEDS: THIAMINE 100 MG TAB PO SCH (08:18)
[2017-03-11] MEDS: APIXABAN 5 MG TABLET PO SCH ×2 (08:18→21:31)
[2017-03-11] MEDS: BALSAM PERU/CASTOR OIL 60 GM TUBE TOP SCH (08:19)
[2017-03-11] MEDS: LIDOCAINE 5% 35 GM OINT TOP SCH ×2 (08:19→21:32)
[2017-03-11] MEDS: ARTIFICIAL TEARS 15 ML OPH BOTH EYES PRN (08:20)
[2017-03-11] MEDS: METOLAZONE 2.5 MG TAB PO SCH (08:47)
[2017-03-11] MEDS: FLUTICASONE 0.05% 16 GM NAS SPRAY NASAL SCH ×2 (08:47→21:32)
--- NOTE | 2017-03-11 09:41 | CONS ---
Date/Time of Note Date/Time of Note DATE: 03/11/17 TIME: 09:39 Consult Date/Type/Reason Admit Date/Time Mar 01, 2017 at 13:35 Initial Consult Date 03/01/17 Type of Consultation: pulm/cc Subjective pt. see and examined in icu still on vent s.p hd yesterday awake/alert hemodynamics stable Exam General: thin man, s/p trach on vent. HEENT: NC/AT. . NECK: . no stridor. CV: RRR. systolic murmur; no gallop or rubs. chest: s/p left sided PPM, no hematoma or bleeding PULM: no wheezing + diffuse rhonchi. GI: SOFT, NT, ND, no rebound or guarding Extremity:+ B/L LE edema. no clubbing. neuro: awake and responds appropriately Psych: calm and pleasant rectal: deferred : normal Objective Vital Signs Date Time Temp Pulse Resp B/P Pulse Ox O2 Delivery O2 Flow Rate FiO2 03/11/17 08:00 60 03/11/17 06:00 21 141/86 100 Mechanical Ventilator 03/11/17 05:42 30 03/11/17 04:00 98.8 Intake and Output 03/10/17 03/10/17 03/11/17 15:00 23:00 07:00 Intake Total 1028.012 ml 480 ml 520 ml Output Total 2700 ml Balance -1671.988 ml 480 ml 520 ml Results/Medications Result Diagram: 03/11/17 0439 03/11/17 0439 Results 24 hrs Laboratory Tests Test 03/11/17 04:39 White Blood Count 4.4 L Red Blood Count 3.28 L Hemoglobin 9.3 L Hematocrit 30.8 L Mean Corpuscular Volume 93.9 Mean Corpuscular Hemoglobin 28.4 L Mean Corpuscular Hemoglobin Concent 30.2 L Red Cell Distribution Width 15.3 H Platelet Count 145 Mean Platelet Volume 11.1 H Neutrophils % 69.1 Lymphocytes % 18.1 Monocytes % 11.4 H Eosinophils % 0.0 Basophils % 0.0 Nucleated Red Blood Cells % 0.0 Neutrophils # 3.0 Lymphocytes # 0.8 Monocytes # 0.5 Eosinophils # 0.0 Basophils # 0.0 Nucleated Red Blood Cells # 0.0 Sodium Level 138 Potassium Level 4.2 Chloride Level 100 Carbon Dioxide Level 26 Anion Gap 16 Blood Urea Nitrogen 69 H Creatinine 2.56 H Glucose Level 134 Calcium Level 7.7 L Phosphorus Level 5.9 H Magnesium Level 2.0 Medications Current Medications Acetaminophen (Tylenol Tab) 500 mg Q6H PRN PO PAIN AND OR ELEVATED TEMP Last administered on 03/10/17 20:08; Admin Dose 500 MG; Start 03/01/17 at 13:30 Lidocaine (Lidocaine 5% Oint) 1 applic BID TOP Last administered on 03/11/17 08:19; Admin Dose 1 APPLIC; Start 03/01/17 at 21:00 Lidocaine (Lidoderm) 1 patch DAILY TD Last administered on 03/11/17 08:17; Admin Dose 1 PATCH; Start 03/02/17 at 09:00 Metolazone (Zaroxolyn) 2.5 mg DAILY PO Last administered on 03/11/17 08:47; Admin Dose 2.5 MG; Start 03/02/17 at 09:00 Oxycodone HCl (Roxicodone) 2.5 mg Q6H PRN PO PAIN Last administered on 20:09; Admin Dose 2.5 MG; Start 03/01/17 at 13:30 Prednisone 5 mg 5 mg DAILY PO Last administered on 03/11/17 08:18; Admin Dose 5 MG; Start 03/02/17 at 09:00 Fluconazole/ Sodium Chloride (Diflucan 100 Mg/ NS (Pmx)) 50 ml @ 50 mls/hr Q24H IVPB Last administered on 03/10/17 16:12; Admin Dose 50 MLS/HR; Start at 16:30 Vancomycin HCl (Vanco Iv Per Pharmacy) PER PHARMACY DOSING NOTE XX ; Start 03/01 at 14:30 Eye Lubricant (Akwa Oint) 1 applic DAILY PRN RIGHT EYE ITCHING Last administered on 03/05/17 15:01; Admin Dose 1 APPLIC; Start 03/01/17 at 15:00 Bisacodyl (Dulcolax) 5 mg DAILY PRN PO CONSTIPATION Last administered on 10:14; Admin Dose 5 MG; Start 03/01/17 at 15:00 Cyclosporine (Sandimmune) 25 mg BID PO Last administered on 03/11/17 08:17; Admin Dose 25 MG; Start 03/01/17 at 21:00 Doxazosin Mesylate (Cardura) 2 mg QHS PO Last administered on 03/10/17 20:14 ; Admin Dose 2 MG; Start 03/01/17 at 21:00 Fluticasone Propionate (Flonase 0.05% Nasal) 1 spray BID NASAL Last administered on 03/10/17 20:10; Admin Dose 1 SPRAY; Start 03/01/17 at 21:00 Senna/Docusate Sodium (Senokot-S) 1 tab QHS PRN PO CONSTIPATION; Start at 15:00 Thiamine HCl (Vitamin B1) 100 mg DAILY PO Last administered on 03/11/17 08:18 ; Admin Dose 100 MG; Start 03/02/17 at 09:00 Eye Lubricant 1 drop 1 drop Q4H PRN BOTH EYES ITCHING EYES Last administered on 03/11/17 08:20; Admin Dose 1 DROP; Start 03/01/17 at 15:30 Norepinephrine 16 mg/Dextrose 500 ml @ 0 mls/hr TITRATE IV Last administered on 03/04/17 18:28; Admin Dose 3.75 MLS/HR; Start 03/01/17 at 17:30 Propofol 100 ml @ 2.406 mls/ hr Q12H IV Last administered on 03/10/17 06:26 ; Admin Dose 14.436 MLS/HR; Start 03/01/17 at 19:30 Midazolam HCl (Versed) 50 ml @ 1 mls/hr TITRATE IV ; Start 03/01/17 at 19:30 Apixaban (Eliquis) 2.5 mg BID PO Last administered on 03/11/17 08:18; Admin Dose 2.5 MG; Start 03/04/17 at 21:00 Lansoprazole 30 mg 30 mg DAILY@06 GTB Last administered on 03/11/17 06:04; Admin Dose 30 MG; Start 03/06/17 at 06:00 Meropenem/Sodium Chloride (Merrem 500mg/50 ml(Pmx)) 50 ml @ 100 mls/hr Q24H IVPB Last administered on 03/10/17 20:10; Admin Dose 100 MLS/HR; Start 03/06 at 21:00 Hydrocortisone 50 mg 50 mg BID IV Last administered on 03/11/17 08:18; Admin Dose 50 MG; Start 03/07/17 at 21:00 Vancomycin HCl (Vancocin) 250 ml @ 125 mls/hr Q96H IVPB Last administered on 03/09/17 22:06; Admin Dose 125 MLS/HR; Start 03/09/17 at 22:00 Miscellaneous Information (Pending [facility] Order For Wound Care) This patient moraes... PRN PRN XX WOUND CARE; Start 03/10/17 at 15:00 Assessment/Plan Chief Complaint/Hosp Course 1. acute Ventilator-dependent respiratory failure. Etiology is likely secondary to multifocal pneumonia and congestive heart failure. The patient's CT scan was reviewed. The patient was intubated due to persistent hypoxemia. Plan at this point is to continue to treat underlying pneumonia. Continue ultrafiltration with hemodialysis. 2. Septic shock secondary to pneumonia. The patient is currently off pressor support. IV antibiotics will continue. will taper pulse steroid down to prednisone 5 daily 3. 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 The patient is currently dialysis dependent. He will receive intermittent hemodialysis as necessary. Will continue to monitor for any signs of recovery. line ok. 4. 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 The patient is currently in acute kidney injury as stated above, will continue current treatment plan as stated above. Continue current immunosuppressive regimen. 5. History of arrhythmia, status post pacemaker placement. Follow up with cardiology. 6. Anemia. Monitor H and H levels. 7. Mineral bone disorder. Monitor calcium and phosphorus levels. 8. Acute encephalopathy toxic metabolic. Continue to monitor. 9. Gastrointestinal and deep venous thrombosis prophylaxis. 10. History of hepatitis C. 11. Severe debility. 12. History of osteoarthritis. 13. History of gout. Problems: PRETTY SAVAGE MD Mar 11, 2017 09:41
--- NOTE | 2017-03-11 10:43 | CONS ---
Date/Time of Note Date/Time of Note DATE: 03/11/17 TIME: 10:39 Assessment/Plan Assessment/Plan Additional Assessment/Plan Ventilator setting; SIMV of 12, tidal volume 500, PEEP of 5, pressure support 10 , 30% FiO2. Next Assessment and recommendations; 1. Patient admitted with bilateral pneumonia leading to respiratory failure with significant radiological improvement. 2. Renal failure, requiring hemodialysis. 3. History of renal transplant patient maintained on chronic immunosuppression. 4. Anemia. 5. Recent pacemaker placement. 6. Atrial flutter. 7. Failure to be weaned from ventilator. However patient's status is significantly improved today. Patient has been off sedation. Ventilator settings have been switched over to CPAP mode. If the patient does well I would recommend observing him for the next 1 hour and to repeat an ABG. If the patient meets extubation criteria he will be extubated. If the patient does not meet criteria I would recommend stopping SIMV rate to 8. Obtain follow -up chest x-ray. I did have a detailed discussion with the patient's yesterday morning and apprised her of her 's condition. 35 minutes of critical care time was spent evaluating the patient. Consultation Date/Type/Reason Admit Date/Time Mar 01, 2017 at 13:35 Initial Consult Date 03/01/17 Type of Consultation: pulm/cc 24 HR Interval Summary Free Text/Dictation Patient's condition remains critical but stable. Remains completely awake and alert. Patient has failed numerous weaning attempts from ventilator. However this morning the patient appears much more calm and is handling CPAP mode to a significantly better extent. Denies any shortness of breath, chest pain. General exam; elderly male, orally intubated, awake, currently in no distress. Exam/Review of Systems Vital Signs Vitals Vital Signs Date Time Temp Pulse Resp B/P Pulse Ox O2 Delivery O2 Flow Rate FiO2 03/11/17 08:00 60 03/11/17 06:00 21 141/86 100 Mechanical Ventilator 03/11/17 05:42 30 03/11/17 04:00 98.8 Intake and Output 03/10/17 03/10/17 03/11/17 15:00 23:00 07:00 Intake Total 1028.012 ml 480 ml 520 ml Output Total 2700 ml Balance -1671.988 ml 480 ml 520 ml Exam HEENT exam; supple neck, no JVD. No lymphadenopathy. Midline trachea. No thyromegaly. Orally intubated. Patient has a multiple carious teeth. Has bilateral intraocular lens implants. Chest exam; diminished but clear breath sounds. S1-S2 audible, no murmurs. Irregular rhythm. Pacemaker in left chest wall. Abdomen exam; soft, nontender. No organomegaly. Bowel sounds audible. Extremity exam; no edema. Patient has a multiple ecchymosis involving all 4 extremities. C[employer] WE[employer] exam; patient is awake and follows commands and moves all 4 extremities. Results Result Diagram: 03/11/17 0439 03/11/17 0439 Results 24 hrs Laboratory Tests Test 03/11/17 04:39 White Blood Count 4.4 L Red Blood Count 3.28 L Hemoglobin 9.3 L Hematocrit 30.8 L Mean Corpuscular Volume 93.9 Mean Corpuscular Hemoglobin 28.4 L Mean Corpuscular Hemoglobin Concent 30.2 L Red Cell Distribution Width 15.3 H Platelet Count 145 Mean Platelet Volume 11.1 H Neutrophils % 69.1 Lymphocytes % 18.1 Monocytes % 11.4 H Eosinophils % 0.0 Basophils % 0.0 Nucleated Red Blood Cells % 0.0 Neutrophils # 3.0 Lymphocytes # 0.8 Monocytes # 0.5 Eosinophils # 0.0 Basophils # 0.0 Nucleated Red Blood Cells # 0.0 Sodium Level 138 Potassium Level 4.2 Chloride Level 100 Carbon Dioxide Level 26 Anion Gap 16 Blood Urea Nitrogen 69 H Creatinine 2.56 H Glucose Level 134 Calcium Level 7.7 L Phosphorus Level 5.9 H Magnesium Level 2.0 Medications Medications Current Medications Acetaminophen (Tylenol Tab) 500 mg Q6H PRN PO PAIN AND OR ELEVATED TEMP Last administered on 03/10/17 20:08; Admin Dose 500 MG; Start 03/01/17 at 13:30 Lidocaine (Lidocaine 5% Oint) 1 applic BID TOP Last administered on 03/11/17 08:19; Admin Dose 1 APPLIC; Start 03/01/17 at 21:00 Lidocaine (Lidoderm) 1 patch DAILY TD Last administered on 03/11/17 08:17; Admin Dose 1 PATCH; Start 03/02/17 at 09:00 Metolazone (Zaroxolyn) 2.5 mg DAILY PO Last administered on 03/11/17 08:47; Admin Dose 2.5 MG; Start 03/02/17 at 09:00 Oxycodone HCl (Roxicodone) 2.5 mg Q6H PRN PO PAIN Last administered on 20:09; Admin Dose 2.5 MG; Start 03/01/17 at 13:30 Prednisone 5 mg 5 mg DAILY PO Last administered on 03/11/17 08:18; Admin Dose 5 MG; Start 03/02/17 at 09:00 Fluconazole/ Sodium Chloride (Diflucan 100 Mg/ NS (Pmx)) 50 ml @ 50 mls/hr Q24H IVPB Last administered on 03/10/17 16:12; Admin Dose 50 MLS/HR; Start at 16:30 Vancomycin HCl (Vanco Iv Per Pharmacy) PER PHARMACY DOSING NOTE XX ; Start 03/01 at 14:30 Eye Lubricant (Akwa Oint) 1 applic DAILY PRN RIGHT EYE ITCHING Last administered on 03/05/17 15:01; Admin Dose 1 APPLIC; Start 03/01/17 at 15:00 Bisacodyl (Dulcolax) 5 mg DAILY PRN PO CONSTIPATION Last administered on 10:14; Admin Dose 5 MG; Start 03/01/17 at 15:00 Cyclosporine (Sandimmune) 25 mg BID PO Last administered on 03/11/17 08:17; Admin Dose 25 MG; Start 03/01/17 at 21:00 Doxazosin Mesylate (Cardura) 2 mg QHS PO Last administered on 03/10/17 20:14 ; Admin Dose 2 MG; Start 03/01/17 at 21:00 Fluticasone Propionate (Flonase 0.05% Nasal) 1 spray BID NASAL Last administered on 03/10/17 20:10; Admin Dose 1 SPRAY; Start 03/01/17 at 21:00 Senna/Docusate Sodium (Senokot-S) 1 tab QHS PRN PO CONSTIPATION; Start at 15:00 Thiamine HCl (Vitamin B1) 100 mg DAILY PO Last administered on 03/11/17 08:18 ; Admin Dose 100 MG; Start 03/02/17 at 09:00 Eye Lubricant 1 drop 1 drop Q4H PRN BOTH EYES ITCHING EYES Last administered on 03/11/17 08:20; Admin Dose 1 DROP; Start 03/01/17 at 15:30 Norepinephrine 16 mg/Dextrose 500 ml @ 0 mls/hr TITRATE IV Last administered on 03/04/17 18:28; Admin Dose 3.75 MLS/HR; Start 03/01/17 at 17:30 Propofol 100 ml @ 2.406 mls/ hr Q12H IV Last administered on 03/10/17 06:26 ; Admin Dose 14.436 MLS/HR; Start 03/01/17 at 19:30 Midazolam HCl (Versed) 50 ml @ 1 mls/hr TITRATE IV ; Start 03/01/17 at 19:30 Apixaban (Eliquis) 2.5 mg BID PO Last administered on 03/11/17 08:18; Admin Dose 2.5 MG; Start 03/04/17 at 21:00 Lansoprazole 30 mg 30 mg DAILY@06 GTB Last administered on 03/11/17 06:04; Admin Dose 30 MG; Start 03/06/17 at 06:00 Meropenem/Sodium Chloride (Merrem 500mg/50 ml(Pmx)) 50 ml @ 100 mls/hr Q24H IVPB Last administered on 03/10/17 20:10; Admin Dose 100 MLS/HR; Start 03/06 at 21:00 Hydrocortisone 50 mg 50 mg BID IV Last administered on 03/11/17 08:18; Admin Dose 50 MG; Start 03/07/17 at 21:00 Vancomycin HCl (Vancocin) 250 ml @ 125 mls/hr Q96H IVPB Last administered on 03/09/17 22:06; Admin Dose 125 MLS/HR; Start 03/09/17 at 22:00 [facility] This patient moraes... PRN PRN XX WOUND CARE; Start 03/10/17 at 15:00 PAOLA RUIZ Mar 11, 2017 10:43
--- NOTE | 2017-03-11 11:17 | CONS ---
Date/Time of Note Date/Time of Note DATE: 03/11/17 TIME: 11:16 Assessment/Plan Assessment/Plan Chief Complaint/Hosp Course ID PROGRESS NOTE CURRENT ABX: DAY # => Vanco IV, Merrem, Diflucan 24H INTERVAL SUMMARY * On CPAP -> Awake, alert, responds appropriately, comfortable on the Vent * s/p HD session yesterday * VSS, NAD, no fevers Physical Exam Physical Exam Constitutional: VSS, NAD HEENT: ETT-> Secure to face and vent Neck: Supple, full ROM Respiratory: Clear anterior, vented Cardiovascular: nl pulses, regular rate and rhythm Gastrointestinal: Soft, NT Extremities: Warm Neurological: Appears grossly intact ID ASSESSMENT 66 yo M admit with: 1. Resolving sepsis. 2. Resolving pneumonia. 3. Acute respiratory failure, tolerate weaning. 4. Aurora albicans urinary tract infection. 5. End-stage renal disease, hemodialysis dependent. 6. History of kidney transplant. 7. History of vancomycin-resistant enterococcus stool colonization. 8. Atrial fibrillation with slow ventricular response, status post permanent pacemaker placement on 02/27/2017. (- )MRSA Nares ABX ALLERGIES: ERYTHROMYCIN CURRENT ABX: DAY # => Vanco IV, Merrem, Diflucan ID RECOMMENDATIONS 1. Continue current ABX through the weaning process 2. Taper when risk of aspiration resolves 3. Weaning per pulmonary -> Today patient on CPAP . . Problems: Consultation Date/Type/Reason Admit Date/Time Mar 01, 2017 at 13:35 Initial Consult Date 03/01/17 Type of Consultation: ID Exam/Review of Systems Vital Signs Vitals Vital Signs Date Time Temp Pulse Resp B/P Pulse Ox O2 Delivery O2 Flow Rate FiO2 03/11/17 08:00 60 03/11/17 06:00 21 141/86 100 Mechanical Ventilator 03/11/17 05:42 30 03/11/17 04:00 98.8 Intake and Output 03/10/17 03/10/17 03/11/17 15:00 23:00 07:00 Intake Total 1028.012 ml 480 ml 520 ml Output Total 2700 ml Balance -1671.988 ml 480 ml 520 ml Results Result Diagram: 03/11/17 0439 03/11/17 0439 Results 24 hrs Laboratory Tests Test 03/11/17 04:39 White Blood Count 4.4 L Red Blood Count 3.28 L Hemoglobin 9.3 L Hematocrit 30.8 L Mean Corpuscular Volume 93.9 Mean Corpuscular Hemoglobin 28.4 L Mean Corpuscular Hemoglobin Concent 30.2 L Red Cell Distribution Width 15.3 H Platelet Count 145 Mean Platelet Volume 11.1 H Neutrophils % 69.1 Lymphocytes % 18.1 Monocytes % 11.4 H Eosinophils % 0.0 Basophils % 0.0 Nucleated Red Blood Cells % 0.0 Neutrophils # 3.0 Lymphocytes # 0.8 Monocytes # 0.5 Eosinophils # 0.0 Basophils # 0.0 Nucleated Red Blood Cells # 0.0 Sodium Level 138 Potassium Level 4.2 Chloride Level 100 Carbon Dioxide Level 26 Anion Gap 16 Blood Urea Nitrogen 69 H Creatinine 2.56 H Glucose Level 134 Calcium Level 7.7 L Phosphorus Level 5.9 H Magnesium Level 2.0 Medications Medications Current Medications Acetaminophen (Tylenol Tab) 500 mg Q6H PRN PO PAIN AND OR ELEVATED TEMP Last administered on 03/10/17 20:08; Admin Dose 500 MG; Start 03/01/17 at 13:30 Lidocaine (Lidocaine 5% Oint) 1 applic BID TOP Last administered on 03/11/17 08:19; Admin Dose 1 APPLIC; Start 03/01/17 at 21:00 Lidocaine (Lidoderm) 1 patch DAILY TD Last administered on 03/11/17 08:17; Admin Dose 1 PATCH; Start 03/02/17 at 09:00 Metolazone (Zaroxolyn) 2.5 mg DAILY PO Last administered on 03/11/17 08:47; Admin Dose 2.5 MG; Start 03/02/17 at 09:00 Oxycodone HCl (Roxicodone) 2.5 mg Q6H PRN PO PAIN Last administered on 20:09; Admin Dose 2.5 MG; Start 03/01/17 at 13:30 Prednisone 5 mg 5 mg DAILY PO Last administered on 03/11/17 08:18; Admin Dose 5 MG; Start 03/02/17 at 09:00 Fluconazole/ Sodium Chloride (Diflucan 100 Mg/ NS (Pmx)) 50 ml @ 50 mls/hr Q24H IVPB Last administered on 03/10/17 16:12; Admin Dose 50 MLS/HR; Start at 16:30 Vancomycin HCl (Vanco Iv Per Pharmacy) PER PHARMACY DOSING NOTE XX ; Start 03/01 at 14:30 Eye Lubricant (Akwa Oint) 1 applic DAILY PRN RIGHT EYE ITCHING Last administered on 03/05/17 15:01; Admin Dose 1 APPLIC; Start 03/01/17 at 15:00 Bisacodyl (Dulcolax) 5 mg DAILY PRN PO CONSTIPATION Last administered on 10:14; Admin Dose 5 MG; Start 03/01/17 at 15:00 Cyclosporine (Sandimmune) 25 mg BID PO Last administered on 03/11/17 08:17; Admin Dose 25 MG; Start 03/01/17 at 21:00 Doxazosin Mesylate (Cardura) 2 mg QHS PO Last administered on 03/10/17 20:14 ; Admin Dose 2 MG; Start 03/01/17 at 21:00 Fluticasone Propionate (Flonase 0.05% Nasal) 1 spray BID NASAL Last administered on 03/10/17 20:10; Admin Dose 1 SPRAY; Start 03/01/17 at 21:00 Senna/Docusate Sodium (Senokot-S) 1 tab QHS PRN PO CONSTIPATION; Start at 15:00 Thiamine HCl (Vitamin B1) 100 mg DAILY PO Last administered on 03/11/17 08:18 ; Admin Dose 100 MG; Start 03/02/17 at 09:00 Eye Lubricant 1 drop 1 drop Q4H PRN BOTH EYES ITCHING EYES Last administered on 03/11/17 08:20; Admin Dose 1 DROP; Start 03/01/17 at 15:30 Norepinephrine 16 mg/Dextrose 500 ml @ 0 mls/hr TITRATE IV Last administered on 03/04/17 18:28; Admin Dose 3.75 MLS/HR; Start 03/01/17 at 17:30 Propofol 100 ml @ 2.406 mls/ hr Q12H IV Last administered on 03/10/17 06:26 ; Admin Dose 14.436 MLS/HR; Start 03/01/17 at 19:30 Midazolam HCl (Versed) 50 ml @ 1 mls/hr TITRATE IV ; Start 03/01/17 at 19:30 Apixaban (Eliquis) 2.5 mg BID PO Last administered on 03/11/17 08:18; Admin Dose 2.5 MG; Start 03/04/17 at 21:00 Lansoprazole 30 mg 30 mg DAILY@06 GTB Last administered on 03/11/17 06:04; Admin Dose 30 MG; Start 03/06/17 at 06:00 Meropenem/Sodium Chloride (Merrem 500mg/50 ml(Pmx)) 50 ml @ 100 mls/hr Q24H IVPB Last administered on 03/10/17 20:10; Admin Dose 100 MLS/HR; Start 03/06 at 21:00 Hydrocortisone 50 mg 50 mg BID IV Last administered on 03/11/17 08:18; Admin Dose 50 MG; Start 03/07/17 at 21:00 Vancomycin HCl (Vancocin) 250 ml @ 125 mls/hr Q96H IVPB Last administered on 03/09/17 22:06; Admin Dose 125 MLS/HR; Start 03/09/17 at 22:00 Miscellaneous Information (Pending [facility] Order For Wound Care) This patient moraes... PRN PRN XX WOUND CARE; Start 03/10/17 at 15:00 LEVI QUEZADA NP Mar 11, 2017 11:17
[2017-03-11] MEDS: FLUCONAZOLE 100 MG/NS (PMX) 50 ML IVPB SCH (17:29)
[2017-03-11] MEDS: oxyCODONE 5 MG TAB PO PRN (21:12)
[2017-03-11] MEDS: MEROPENEM 500MG/50 ML (PMX) 50 ML IVPB SCH (21:31)
[2017-03-11] MEDS: DOXAZOSIN 2 MG TAB PO SCH (21:49)
[2017-03-12] VITALS (41 sets, daily range): BP systolic 121–149; BP diastolic 62–129; PULSE 60–77; RESP 16–55
[2017-03-12] MEDS: LANSOPRAZOLE 30 MG CAP GTB SCH (06:53)
[2017-03-12] MEDS: PROPOFOL 100 ML IV SCH ×2 (07:30→19:30)
--- NOTE | 2017-03-12 08:01 | PN ---
DATE: 03/09/2017 SUBJECTIVE: No acute changes. The patient is alert, looks comfortable on vent. He is afebrile, wi fe at bedside. VITAL SIGNS: Temperature 97.9, pulse 60, respirations 10, blood pressure 146/81, saturation 100 on vent. WBC 5.2, H and H 9.6 and 31.7, platelets 144. INDWELLINGS: Endotracheal tube, NG tube, right IJ Perm-A-Cath and triple-lumen catheter. ANTIMICROBIALS: The patient remains on: 1. Meropenem. 2. Vancomycin. 3. Fluconazole. Total antibiotic day #9. PHYSICAL EXAMINATION: GENERAL: This is a chronically ill-appearing, fragile, elderly man who is awake, in no distress. HEENT: Head atraumatic, normocephalic. Sclerae anicteric. Buccal mucosa dry. NECK: Supple. CHEST: Rise symmetrical. Breath sounds clear, diminished to bases. HEART: S1, S2. ABDOMEN: Soft, bowel tones present. EXTREMITIES: Without cyanosis. Trace edema. ASSESSMENT: 1. Resolving sepsis status post shock. 2. Aspiration pneumonia with respiratory failure, tolerates weaning. 3. End-stage renal disease, hemodialysis dependent. 4. History of kidney transplant. 5. Aurora albicans urinary tract infection. 6. History of vancomycin-resistant Enterococcus stool colonization. 7. Status post permanent pacemaker on 02/27/2017. PLAN: The patient remains stable, tolerates weaning, completing antibiotics. Dictated By: MYLA CHIU GENERAL OPHTHALMOLOGIST for [facility] Conf#: [id number] DID#: [id number]
--- NOTE | 2017-03-12 08:01 | PN ---
DATE: 03/09/2017 SUBJECTIVE: No acute changes. The patient is alert, looks comfortable on vent. He is afebrile, wi fe at bedside. VITAL SIGNS: Temperature 97.9, pulse 60, respirations 10, blood pressure 146/81, saturation 100 on vent. WBC 5.2, H and H 9.6 and 31.7, platelets 144. INDWELLINGS: Endotracheal tube, NG tube, right IJ Perm-A-Cath and triple-lumen catheter. ANTIMICROBIALS: The patient remains on: 1. Meropenem. 2. Vancomycin. 3. Fluconazole. Total antibiotic day #9. PHYSICAL EXAMINATION: GENERAL: This is a chronically ill-appearing, fragile, elderly man who is awake, in no distress. HEENT: Head atraumatic, normocephalic. Sclerae anicteric. Buccal mucosa dry. NECK: Supple. CHEST: Rise symmetrical. Breath sounds clear, diminished to bases. HEART: S1, S2. ABDOMEN: Soft, bowel tones present. EXTREMITIES: Without cyanosis. Trace edema. ASSESSMENT: 1. Resolving sepsis status post shock. 2. Aspiration pneumonia with respiratory failure, tolerates weaning. 3. End-stage renal disease, hemodialysis dependent. 4. History of kidney transplant. 5. Aurora albicans urinary tract infection. 6. History of vancomycin-resistant Enterococcus stool colonization. 7. Status post permanent pacemaker on 02/27/2017. PLAN: The patient remains stable, tolerates weaning, completing antibiotics. Dictated By: MYLA CHIU RELIEF CAPTAIN for [facility] Conf#: [id number] DID#: [id number]
--- NOTE | 2017-03-12 08:01 | PN ---
DATE: 03/09/2017 SUBJECTIVE: No acute changes. The patient is alert, looks comfortable on vent. He is afebrile, wi fe at bedside. VITAL SIGNS: Temperature 97.9, pulse 60, respirations 10, blood pressure 146/81, saturation 100 on vent. WBC 5.2, H and H 9.6 and 31.7, platelets 144. INDWELLINGS: Endotracheal tube, NG tube, right IJ Perm-A-Cath and triple-lumen catheter. ANTIMICROBIALS: The patient remains on: 1. Meropenem. 2. Vancomycin. 3. Fluconazole. Total antibiotic day #9. PHYSICAL EXAMINATION: GENERAL: This is a chronically ill-appearing, fragile, elderly man who is awake, in no distress. HEENT: Head atraumatic, normocephalic. Sclerae anicteric. Buccal mucosa dry. NECK: Supple. CHEST: Rise symmetrical. Breath sounds clear, diminished to bases. HEART: S1, S2. ABDOMEN: Soft, bowel tones present. EXTREMITIES: Without cyanosis. Trace edema. ASSESSMENT: 1. Resolving sepsis status post shock. 2. Aspiration pneumonia with respiratory failure, tolerates weaning. 3. End-stage renal disease, hemodialysis dependent. 4. History of kidney transplant. 5. Aurora albicans urinary tract infection. 6. History of vancomycin-resistant Enterococcus stool colonization. 7. Status post permanent pacemaker on 02/27/2017. PLAN: The patient remains stable, tolerates weaning, completing antibiotics. Dictated By: MYLA CHIU SAMPLE GRINDER for [facility]EC[employer] Conf#: [id number] DID#: [id number]
--- NOTE | 2017-03-12 08:10 | RADRPT ---
PROCEDURE: XR Chest. CLINICAL INDICATION: CHF TECHNIQUE: AP Portable chest. COMPARISON: CHEST 03/08/2017; CHEST 03/05/2017; FINDINGS: ET tube, NG tube, right dialysis catheter and single lead pacemaker are unchanged. The cardiomediastinal silhouette is enlarged. The aortic arch is calcified. The lung volumes are low . There is mild decrease CHF. Persistent retrocardiac opacity, small pleural effusions and basilar atelectasis. Sclerosis and deformity of bilateral humeral heads and glenoid are again visualized. T horacolumbar scoliosis and advanced degenerative changes also noted. IMPRESSION: ET, NG tubes and right dialysis catheter remain in place. Mild decrease CHF. Cardiomegaly and aortic atherosclerosis. Unchanged retrocardiac infiltrate, or at electasis and probable small pleural effusions. Physician Jimmy Date Time Electronically viewed and signed by Physician Jimmy on 03/12/2017 08:10 /
--- NOTE | 2017-03-12 08:32 | PN ---
DATE: 03/12/2017 SUBJECTIVE: The patient is in serious, but stable condition. The patient had hemodialysis yesterda y, tolerated well. No other events noted. OBJECTIVE: VITAL SIGNS: Blood pressure is 136/79, respirations 18, pulse 60, temperature 97.9. HEENT: Head is normocephalic. Pupils are reactive to light. NECK: Supple. HEART: Regular rate. LUNGS: Show diminished breath sounds at the base. ABDOMEN: Soft, nontender to palpation. No rebound or guarding. EXTREMITIES: Negative for clubbing, cyanosis. No edema. DERMATOLOGIC: No rashes. MUSCULOSKELETAL: No joint effusions. NEUROLOGIC: No change in exam. MEDICATIONS: The patient's medications have been reviewed. LABORATORY DATA: Shows a white count of 4.9, hemoglobin 9.3, hematocrit 31.3, platelet count is 143 . Sodium 137, BUN 90, creatinine 3.61, phosphorus 6.4. The patient's imaging studies, cultures hav e been reviewed. Chest x-ray was reviewed. ASSESSMENT AND PLAN: 1. Ventilator-dependent respiratory failure. Etiology secondary to pneumonia and congestive heart failure. The patient is currently receiving weaning trials. Continue. Follow up with pulmonary. The patient's ABGs, vent settings have been reviewed. 2. Sepsis, status post shock secondary to pneumonia. The patient is currently off pressor support. Continue IV antibiotics. Follow up with infectious disease. 3. 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 The patient is currently d ialysis dependent. Will continue intermittent hemodialysis. No signs of recovery at this time. 4. 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 The patient is currently in acute kidney injury as stated above. Continue current treatment plan. Continue current immunosu ppressive regimen. 5. Status post arrhythmia, status post pacemaker. Follow up with cardiology. 6. Anemia. Monitor hemoglobin and hematocrit levels. 7. Mineral bone disorder. Will monitor calcium and phosphorus levels. 8. Acute encephalopathy, etiology toxic metabolic. Continue to monitor. 9. Gastrointestinal and deep vein thrombosis prophylaxis. 10. History of hepatitis C. 11. History of gout. 12. Severe debility. 13. History of osteoarthritis. Dictated By: PATRIA CHANEY/BECKIE Conf#: [id number] DID#: [id number]
[2017-03-12] MEDS: FLUTICASONE 0.05% 16 GM NAS SPRAY NASAL SCH ×2 (09:00→22:00)
[2017-03-12] MEDS: HYDROCORTISONE 100 MG INJ IV SCH ×2 (09:37→21:59)
[2017-03-12] MEDS: THIAMINE 100 MG TAB PO SCH (09:39)
[2017-03-12] MEDS: predniSONE 5 MG TAB PO SCH (09:39)
[2017-03-12] MEDS: APIXABAN 5 MG TABLET PO SCH ×2 (09:39→21:58)
[2017-03-12] MEDS: CYCLOSPORINE 25 MG CAP PO SCH ×2 (09:40→21:57)
[2017-03-12] MEDS: LIDOCAINE 5% PATCH TD SCH (09:51)
[2017-03-12] MEDS: METOLAZONE 2.5 MG TAB PO SCH (09:52)
[2017-03-12] MEDS: BALSAM PERU/CASTOR OIL 60 GM TUBE TOP SCH (09:52)
[2017-03-12] MEDS: OCULAR LUBRICANT 3.5 GM OPH OINT RIGHT EYE PRN (09:57)
[2017-03-12] MEDS: LIDOCAINE 5% 35 GM OINT TOP SCH ×2 (09:58→22:01)
--- NOTE | 2017-03-12 14:39 | PN ---
DATE: 03/12/2017 SUBJECTIVE: No events overnight. The patient is alert, follows commands. Family at bedside. He l ooks comfortable on vent. VITAL SIGNS: Temperature 97.9, pulse 60, respirations 24, blood pressure 147/83, saturation 100 on vent. WBC 4.9, H and H 9.3 and 31.3, platelets 143. No shift, no bands. DIAGNOSTICS: Chest x-ray this morning revealed mild increase in CHF. INDWELLINGS: Endotracheal tube, NG tube, right chest Perm-A-Cath, femoral triple-lumen catheter. ANTIMICROBIALS: The patient remains on IV vancomycin, meropenem and fluconazole. PHYSICAL EXAMINATION: GENERAL: This is a fragile well-developed elderly man who is awake, follows commands. The patient is in no distress. HEENT: Head atraumatic, normocephalic. Sclerae anicteric. Buccal mucosa pink, dry. NECK: Supple. CHEST: Rise symmetrical. Breath sounds clear, diminished to bases. HEART: S1, S2. ABDOMEN: Soft. Bowel tones present. ASSESSMENT: 1. Status post sepsis with shock. 2. Acute respiratory failure. 3. Resolving pneumonia Aurora albicans urinary tract infection. 4. End-stage renal disease, hemodialysis dependent. 5. History of kidney transplant. 6. Status post permanent pacemaker placement on 02/27/2007. PLAN: The patient remains stable, tolerates weaning. We are going to discontinue antibiotics in th e a.m., possible extubation today. Dictated By: MYLA CHIU HANDBAG PARTS CUTTER for VIC ARMAS/BECKIE Conf#: [id number] DID#: [id number]
--- NOTE | 2017-03-12 14:39 | PN ---
DATE: 03/12/2017 SUBJECTIVE: No events overnight. The patient is alert, follows commands. Family at bedside. He l ooks comfortable on vent. VITAL SIGNS: Temperature 97.9, pulse 60, respirations 24, blood pressure 147/83, saturation 100 on vent. WBC 4.9, H and H 9.3 and 31.3, platelets 143. No shift, no bands. DIAGNOSTICS: Chest x-ray this morning revealed mild increase in CHF. INDWELLINGS: Endotracheal tube, NG tube, right chest Perm-A-Cath, femoral triple-lumen catheter. ANTIMICROBIALS: The patient remains on IV vancomycin, meropenem and fluconazole. PHYSICAL EXAMINATION: GENERAL: This is a fragile well-developed elderly man who is awake, follows commands. The patient is in no distress. HEENT: Head atraumatic, normocephalic. Sclerae anicteric. Buccal mucosa pink, dry. NECK: Supple. CHEST: Rise symmetrical. Breath sounds clear, diminished to bases. HEART: S1, S2. ABDOMEN: Soft. Bowel tones present. ASSESSMENT: 1. Status post sepsis with shock. 2. Acute respiratory failure. 3. Resolving pneumonia Aurora albicans urinary tract infection. 4. End-stage renal disease, hemodialysis dependent. 5. History of kidney transplant. 6. Status post permanent pacemaker placement on 02/27/2007. PLAN: The patient remains stable, tolerates weaning. We are going to discontinue antibiotics in th e a.m., possible extubation today. Dictated By: MYLA CHIU SHELVER for VIC ARMAS/BECKIE Conf#: [id number] DID#: [id number]
--- NOTE | 2017-03-12 14:39 | PN ---
DATE: 03/12/2017 SUBJECTIVE: No events overnight. The patient is alert, follows commands. Family at bedside. He l ooks comfortable on vent. VITAL SIGNS: Temperature 97.9, pulse 60, respirations 24, blood pressure 147/83, saturation 100 on vent. WBC 4.9, H and H 9.3 and 31.3, platelets 143. No shift, no bands. DIAGNOSTICS: Chest x-ray this morning revealed mild increase in CHF. INDWELLINGS: Endotracheal tube, NG tube, right chest Perm-A-Cath, femoral triple-lumen catheter. ANTIMICROBIALS: The patient remains on IV vancomycin, meropenem and fluconazole. PHYSICAL EXAMINATION: GENERAL: This is a fragile well-developed elderly man who is awake, follows commands. The patient is in no distress. HEENT: Head atraumatic, normocephalic. Sclerae anicteric. Buccal mucosa pink, dry. NECK: Supple. CHEST: Rise symmetrical. Breath sounds clear, diminished to bases. HEART: S1, S2. ABDOMEN: Soft. Bowel tones present. ASSESSMENT: 1. Status post sepsis with shock. 2. Acute respiratory failure. 3. Resolving pneumonia Aurora albicans urinary tract infection. 4. End-stage renal disease, hemodialysis dependent. 5. History of kidney transplant. 6. Status post permanent pacemaker placement on 02/27/2007. PLAN: The patient remains stable, tolerates weaning. We are going to discontinue antibiotics in th e a.m., possible extubation today. Dictated By: MYLA CHIU TELEGRAPH MESSENGER for VIC ARMAS/BECKIE Conf#: [id number] DID#: [id number]
--- NOTE | 2017-03-12 16:06 | CONS ---
Date/Time of Note Date/Time of Note DATE: 03/12/17 TIME: 16:02 Consult Date/Type/Reason Admit Date/Time Mar 01, 2017 at 13:35 Initial Consult Date 03/01/17 Type of Consultation: cardiology Subjective CARDIOLOGY FOLLOW UP NOTE: S: Discussed with staff and rhythm strip is reviewed. Patient remains in demand ventricular pacemaker. Patient is extubated and BP remains stable off of pressors. he states he is just tired. no active bleeding is reported O: General: thin man, . HEENT: NC/AT. . NECK: . no stridor. CV: RRR. systolic murmur; no gallop or rubs. chest: s/p left sided PPM, no hematoma or bleeding PULM: no wheezing + diffuse rhonchi. GI: SOFT, NT, ND, no rebound or guarding Extremity:+ decreased LE edema. no clubbing. neuro: awake and alert. responds appropriately . Psych: calm and pleasant rectal: deferred : normal Objective Vital Signs Date Time Temp Pulse Resp B/P Pulse Ox O2 Delivery O2 Flow Rate FiO2 03/12/17 15:00 63 27 127/79 100 Nasal Cannula 3.0 03/12/17 11:10 30 03/12/17 11:00 98.2 Intake and Output 03/11/17 03/11/17 03/12/17 15:00 23:00 07:00 Intake Total 420 ml 470 ml 520 ml Balance 420 ml 470 ml 520 ml Results/Medications Result Diagram: 03/12/17 0516 03/12/17 0516 Results 24 hrs Laboratory Tests Test 03/12/17 05:16 03/12/17 11:10 White Blood Count 4.9 Red Blood Count 3.36 L Hemoglobin 9.3 L Hematocrit 31.3 L Mean Corpuscular Volume 93.2 Mean Corpuscular Hemoglobin 27.7 L Mean Corpuscular Hemoglobin Concent 29.7 L Red Cell Distribution Width 15.6 H Platelet Count 143 Mean Platelet Volume 11.2 H Neutrophils % 68.5 Lymphocytes % 18.1 Monocytes % 11.0 Eosinophils % 0.2 Basophils % 0.2 Nucleated Red Blood Cells % 0.0 Neutrophils # 3.4 Lymphocytes # 0.9 Monocytes # 0.5 Eosinophils # 0.0 Basophils # 0.0 Nucleated Red Blood Cells # 0.0 Sodium Level 137 Potassium Level 3.9 Chloride Level 98 Carbon Dioxide Level 25 Anion Gap 18 H Blood Urea Nitrogen 90 H Creatinine 3.61 #H Glucose Level 121 Calcium Level 8.1 L Phosphorus Level 6.4 H Magnesium Level 2.1 Blood Gas Specimen Source Blood arterial Arterial Blood Date Drawn 03/12/2017 11:28:15 AM Arterial Blood pH (Temp corrected) 7.396 Arterial Blood pCO2 (Temp correct) 48.5 H Arterial Blood pO2 (Temp corrected) 100.5 H Arterial Blood HCO3 29.1 H Arterial Blood Base Excess 3.5 H Arterial Blood Oxygen Saturation 97.5 Sly Test ACCEPTAB Arterial Blood Gas Puncture Site Right Brachial Arterial Blood Carboxyhemoglobin 0 Arterial Blood Methemoglobin 0 Blood Gas A-a O2 Differential 56.4 H Oxyhemoglobin Percent 97.5 Total Hemoglobin 11.3 L Blood Gas Temperature 37.0 Blood Gas Actual Respiration Rate 20 Blood Gas Modality VENT - CPAP FiO2 30.0 Blood Gas Tidal Volume 399.0 Blood Gas Low PEEP Setting 5.0 Blood Gas Pressure Support 10 Blood Gas Notified Whom NAYELY KUMAR Blood Gas Notified Time 03/12/2017 11:43:41 AM Medications Current Medications Acetaminophen (Tylenol Tab) 500 mg Q6H PRN PO PAIN AND OR ELEVATED TEMP Last administered on 03/10/17 20:08; Admin Dose 500 MG; Start 03/01/17 at 13:30 Lidocaine (Lidocaine 5% Oint) 1 applic BID TOP Last administered on 03/12/17 09:58; Admin Dose 1 APPLIC; Start 03/01/17 at 21:00 Lidocaine (Lidoderm) 1 patch DAILY TD Last administered on 03/12/17 09:51; Admin Dose 1 PATCH; Start 03/02/17 at 09:00 Metolazone (Zaroxolyn) 2.5 mg DAILY PO Last administered on 03/12/17 09:52; Admin Dose 2.5 MG; Start 03/02/17 at 09:00 Oxycodone HCl (Roxicodone) 2.5 mg Q6H PRN PO PAIN Last administered on 21:12; Admin Dose 2.5 MG; Start 03/01/17 at 13:30 Prednisone 5 mg 5 mg DAILY PO Last administered on 03/12/17 09:39; Admin Dose 5 MG; Start 03/02/17 at 09:00 Fluconazole/ Sodium Chloride (Diflucan 100 Mg/ NS (Pmx)) 50 ml @ 50 mls/hr Q24H IVPB Last administered on 03/11/17 17:29; Admin Dose 50 MLS/HR; Start at 16:30 Vancomycin HCl (Vanco Iv Per Pharmacy) PER PHARMACY DOSING NOTE XX ; Start 03/01 at 14:30 Eye Lubricant (Akwa Oint) 1 applic DAILY PRN RIGHT EYE ITCHING Last administered on 03/12/17 09:57; Admin Dose 1 APPLIC; Start 03/01/17 at 15:00 Bisacodyl (Dulcolax) 5 mg DAILY PRN PO CONSTIPATION Last administered on 10:14; Admin Dose 5 MG; Start 03/01/17 at 15:00 Cyclosporine (Sandimmune) 25 mg BID PO Last administered on 03/12/17 09:40; Admin Dose 25 MG; Start 03/01/17 at 21:00 Doxazosin Mesylate (Cardura) 2 mg QHS PO Last administered on 03/11/17 21:49 ; Admin Dose 2 MG; Start 03/01/17 at 21:00 Fluticasone Propionate (Flonase 0.05% Nasal) 1 spray BID NASAL Last administered on 03/11/17 21:32; Admin Dose 1 SPRAY; Start 03/01/17 at 21:00 Senna/Docusate Sodium (Senokot-S) 1 tab QHS PRN PO CONSTIPATION; Start at 15:00 Thiamine HCl (Vitamin B1) 100 mg DAILY PO Last administered on 03/12/17 09:39 ; Admin Dose 100 MG; Start 03/02/17 at 09:00 Eye Lubricant 1 drop 1 drop Q4H PRN BOTH EYES ITCHING EYES Last administered on 03/11/17 08:20; Admin Dose 1 DROP; Start 03/01/17 at 15:30 Norepinephrine 16 mg/Dextrose 500 ml @ 0 mls/hr TITRATE IV Last administered on 03/04/17 18:28; Admin Dose 3.75 MLS/HR; Start 03/01/17 at 17:30 Propofol 100 ml @ 2.406 mls/ hr Q12H IV Last administered on 03/10/17 06:26 ; Admin Dose 14.436 MLS/HR; Start 03/01/17 at 19:30 Midazolam HCl (Versed) 50 ml @ 1 mls/hr TITRATE IV ; Start 03/01/17 at 19:30 Apixaban (Eliquis) 2.5 mg BID PO Last administered on 03/12/17 09:39; Admin Dose 2.5 MG; Start 03/04/17 at 21:00 Lansoprazole 30 mg 30 mg DAILY@06 GTB Last administered on 03/12/17 06:53; Admin Dose 30 MG; Start 03/06/17 at 06:00 Meropenem/Sodium Chloride (Merrem 500mg/50 ml(Pmx)) 50 ml @ 100 mls/hr Q24H IVPB Last administered on 03/11/17 21:31; Admin Dose 100 MLS/HR; Start 03/06 at 21:00 Hydrocortisone 50 mg 50 mg BID IV Last administered on 03/12/17 09:37; Admin Dose 50 MG; Start 03/07/17 at 21:00 Vancomycin HCl (Vancocin) 250 ml @ 125 mls/hr Q96H IVPB Last administered on 03/09/17 22:06; Admin Dose 125 MLS/HR; Start 03/09/17 at 22:00 Miscellaneous Information (Pending [facility] Order For Wound Care) This patient moraes... PRN PRN XX WOUND CARE; Start 03/10/17 at 15:00 Assessment/Plan Chief Complaint/Hosp Course 1. Acute on-chronic hypoxemic, hypercapnic respiratory failure, status post intubation, now extubated 2. Sick sinus syndrome, status post permanent pacemaker. 3. Atrial fibrillation with a slow ventricular response, heart rate under control with the pacemaker. 4. Septic shock: BP has improved now and pt is off of evophed drip now 5. Pneumonia. 6. Anemia. 7. History of hepatitis C. 8. History of renal transplant. 9. Renal failure, status post hemodialysis. 10. NSVT RECOMMENDATIONS: Antibiotic is being managed as per Infectious Disease recommendations. off of Procardia due to hypotension. Cont eliquis as long as no bleeding Antirejection medications as per Renal. Dialysis as per Renal. replace lytes prn cont resp care. THANK YOU ROLAND DORSEY MD [facility] . Problems: ROLAND DORSEY MD Mar 12, 2017 16:05
[2017-03-12] MEDS: FLUCONAZOLE 100 MG/NS (PMX) 50 ML IVPB SCH (16:20)
[2017-03-12] MEDS: MEROPENEM 500MG/50 ML (PMX) 50 ML IVPB SCH (21:58)
[2017-03-12] MEDS: DOXAZOSIN 2 MG TAB PO SCH (21:58)
[2017-03-13] VITALS (42 sets, daily range): BP systolic 112–144; BP diastolic 62–96; PULSE 38–73; RESP 9–39
[2017-03-13] MEDS: LANSOPRAZOLE 30 MG CAP GTB SCH (06:00)
[2017-03-13] MEDS: PROPOFOL 100 ML IV SCH ×2 (07:30→17:09)
[2017-03-13] MEDS: METOLAZONE 2.5 MG TAB PO SCH (09:00)
--- NOTE | 2017-03-13 09:18 | PN ---
DATE: 03/13/2017 SUBJECTIVE: The patient yesterday was extubated. Overnight, the patient was noted to be lethargic, placed on BiPAP. No other acute events noted. The patient is alert and oriented. OBJECTIVE: VITAL SIGNS: Blood pressure is 139/89, pulse 68, respirations 30. HEENT: Head is normocephalic. NECK: Supple. HEART: Regular rate. LUNGS: Show diminished breath sounds at base. ABDOMEN: Soft, nontender to palpation without rebound or guarding. EXTREMITIES: Negative for clubbing, cyanosis, no edema. DERMATOLOGIC: No rashes. MUSCULOSKELETAL: No joint effusions. NEUROLOGIC: No change in exam. MEDICATIONS: The patient's medications have been reviewed. LABORATORY DATA: White count 4.9, hemoglobin 9.8, hematocrit 32.7, platelet count 145. Sodium 139, potassium 4.4, BUN 63, creatinine 2.86, phosphorus 6.3. The patient's ABG and microbiologies were reviewed. ASSESSMENT AND PLAN: 1. Ventilator dependent respiratory failure. Etiology secondary to pneumonia, congestive heart momo lure. The patient is status post extubation, currently on BiPAP. We will continue. The patient's ABG and vent settings were reviewed. Follow up with pulmonary. 2. Sepsis, status post shock secondary to pneumonia. Continue current antibiotic regimen. Follow up with infectious disease. 3. 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 Etiology of acute kidney i njury is secondary to acute tubular necrosis. The patient is currently dialysis dependent, on inter mittent hemodialysis. Continue to monitor for any signs of recovery. 4. History of end-stage renal disease status post cadaveric renal transplant. The patient is curre ntly in acute kidney injury, as stated above. Continue current treatment plan. 5. Arrhythmia, status post pacemaker. Continue to monitor. Follow up with cardiology. 6. Anemia. Monitor hemoglobin and hematocrit levels. 7. Mineral bone disorder. Monitor calcium and phosphorus levels. 8. Acute encephalopathy. Etiology is toxic metabolic. Continue to monitor. 9. History of hepatitis C. 10. History of gout. 11. Gastrointestinal and deep vein thrombosis prophylaxis. Dictated By: PATRIA RICHARDS DO NR/BECKIE Conf#: [id number] DID#: [id number]
[2017-03-13] MEDS: HYDROCORTISONE 100 MG INJ IV SCH ×2 (09:52→20:47)
[2017-03-13] MEDS: LIDOCAINE 5% 35 GM OINT TOP SCH ×2 (09:53→20:49)
[2017-03-13] MEDS: BALSAM PERU/CASTOR OIL 60 GM TUBE TOP SCH (09:53)
[2017-03-13] MEDS: LIDOCAINE 5% PATCH TD SCH (09:53)
[2017-03-13] MEDS: FLUTICASONE 0.05% 16 GM NAS SPRAY NASAL SCH ×2 (09:54→20:48)
--- NOTE | 2017-03-13 10:39 | CONS ---
Date/Time of Note Date/Time of Note DATE: 03/13/17 TIME: 10:37 Consult Date/Type/Reason Admit Date/Time Mar 01, 2017 at 13:35 Initial Consult Date 03/01/17 Type of Consultation: cardiology Subjective CARDIOLOGY FOLLOW UP NOTE: S: Discussed with staff and rhythm strip is reviewed. Patient remains in demand ventricular pacemaker. Patient remains extubated and BP remains stable off of pressors. he denies any cp or pressure to me. no active bleeding is reported O: General: thin man, . HEENT: NC/AT. . NECK: . no stridor. CV: RRR. systolic murmur; no gallop or rubs. chest: s/p left sided PPM, no hematoma or bleeding PULM: no wheezing + diffuse rhonchi. GI: SOFT, NT, ND, no rebound or guarding Extremity:+ decreased LE edema. no clubbing. neuro: awake and alert. responds appropriately . Psych: calm and pleasant rectal: deferred : normal Objective Vital Signs Date Time Temp Pulse Resp B/P Pulse Ox O2 Delivery O2 Flow Rate FiO2 03/13/17 08:00 98.0 60 23 132/83 100 Nasal Cannula 3.0 03/13/17 05:40 30 Intake and Output 03/12/17 03/12/17 03/13/17 15:00 23:00 07:00 Intake Total 720 ml Output Total 3000 ml 30 ml Balance -2280 ml -30 ml Results/Medications Result Diagram: 03/13/17 0445 03/13/17 0445 Results 24 hrs Laboratory Tests Test 03/12/17 11:10 03/12/17 23:45 03/13/17 01:45 03/13/17 04:00 Blood Gas Specimen Source Blood arterial Blood arterial Blood arterial Arterial Blood Date Drawn 03/12/2017 11:28:15 AM 03/13/2017 1:38:23 AM 03/13/2017 3:50:00 AM Arterial Blood pH (Temp corrected) 7.396 7.258 *L 7.326 L Arterial Blood pCO2 (Temp correct) 48.5 H 68.8 H 55.4 H Arterial Blood pO2 (Temp corrected) 100.5 H 123.6 H 145.2 H Arterial Blood HCO3 29.1 H 30.0 H 28.3 H Arterial Blood Base Excess 3.5 H 1.6 1.5 Arterial Blood Oxygen Saturation 97.5 97.8 98.5 H Sly Test ACCEPTAB ACCEPTAB N/A Arterial Blood Gas Puncture Site Right Brachial Right Radial Right Brachial Arterial Blood Carboxyhemoglobin 0 0.3 0.1 Arterial Blood Methemoglobin 0 0.2 0.1 Blood Gas A-a O2 Differential 56.4 H 31.4 H 76.3 H Oxyhemoglobin Percent 97.5 97.3 98.3 Total Hemoglobin 11.3 L 11.2 L 10.7 L Blood Gas Temperature 37.0 37.0 37.0 Blood Gas Actual Respiration Rate 20 18 Blood Gas Modality VENT - CPAP NASAL CANNULA BIPAP - S/T FiO2 30.0 33.0 40.0 Blood Gas Tidal Volume 399.0 Blood Gas Low PEEP Setting 5.0 Blood Gas Pressure Support 10 11 Blood Gas Notified Whom NAYELY RT KM KM Blood Gas Notified Time 03/12/2017 11:43:41 AM 03/13/2017 1:50:46 AM 03/13/2017 4:02:00 AM Bedside Glucose 83 Blood Gas Critical Value Read Back Chay BRADLEY RN Blood Gas Respiration Rate 18.0 Test 03/13/17 04:45 White Blood Count 4.9 Red Blood Count 3.45 L Hemoglobin 9.8 L Hematocrit 32.7 L Mean Corpuscular Volume 94.8 Mean Corpuscular Hemoglobin 28.4 L Mean Corpuscular Hemoglobin Concent 30.0 L Red Cell Distribution Width 15.4 H Platelet Count 145 Mean Platelet Volume 10.9 H Neutrophils % 79.7 H Lymphocytes % 11.5 L Monocytes % 7.2 Eosinophils % 0.0 Basophils % 0.2 Nucleated Red Blood Cells % 0.0 Neutrophils # 3.9 Lymphocytes # 0.6 L Monocytes # 0.4 Eosinophils # 0.0 Basophils # 0.0 Nucleated Red Blood Cells # 0.0 Sodium Level 139 Potassium Level 4.4 Chloride Level 98 Carbon Dioxide Level 29 Anion Gap 16 Blood Urea Nitrogen 63 H Creatinine 2.86 H Glucose Level 89 Calcium Level 8.4 Phosphorus Level 6.3 H Magnesium Level 2.0 Medications Current Medications Acetaminophen (Tylenol Tab) 500 mg Q6H PRN PO PAIN AND OR ELEVATED TEMP Last administered on 03/10/17t 20:08; Admin Dose 500 MG; Start 03/01/17 at 13:30 Lidocaine (Lidocaine 5% Oint) 1 applic BID TOP Last administered on 03/13/17 09:53; Admin Dose 1 APPLIC; Start 03/01/17 at 21:00 Lidocaine (Lidoderm) 1 patch DAILY TD Last administered on 03/13/17 09:53; Admin Dose 1 PATCH; Start 03/02/17 at 09:00 Metolazone (Zaroxolyn) 2.5 mg DAILY PO Last administered on 03/12/17 09:52; Admin Dose 2.5 MG; Start 03/02/17 at 09:00 Oxycodone HCl (Roxicodone) 2.5 mg Q6H PRN PO PAIN Last administered on 21:12; Admin Dose 2.5 MG; Start 03/01/17 at 13:30 Prednisone 5 mg 5 mg DAILY PO Last administered on 03/12/17 09:39; Admin Dose 5 MG; Start 03/02/17 at 09:00 Fluconazole/ Sodium Chloride (Diflucan 100 Mg/ NS (Pmx)) 50 ml @ 50 mls/hr Q24H IVPB Last administered on 03/12/17 16:20; Admin Dose 50 MLS/HR; Start at 16:30 Vancomycin HCl (Vanco Iv Per Pharmacy) PER PHARMACY DOSING NOTE XX ; Start 03/01 at 14:30 Eye Lubricant (Akwa Oint) 1 applic DAILY PRN RIGHT EYE ITCHING Last administered on 03/12/17 09:57; Admin Dose 1 APPLIC; Start 03/01/17 at 15:00 Bisacodyl (Dulcolax) 5 mg DAILY PRN PO CONSTIPATION Last administered on 10:14; Admin Dose 5 MG; Start 03/01/17 at 15:00 Cyclosporine (Sandimmune) 25 mg BID PO Last administered on 03/12/17 21:57; Admin Dose 25 MG; Start 03/01/17 at 21:00 Doxazosin Mesylate (Cardura) 2 mg QHS PO Last administered on 03/12/17 21:58 ; Admin Dose 2 MG; Start 03/01/17 at 21:00 Fluticasone Propionate (Flonase 0.05% Nasal) 1 spray BID NASAL Last administered on 03/13/17 09:54; Admin Dose 1 SPRAY; Start 03/01/17 at 21:00 Senna/Docusate Sodium (Senokot-S) 1 tab QHS PRN PO CONSTIPATION; Start at 15:00 Thiamine HCl (Vitamin B1) 100 mg DAILY PO Last administered on 03/12/17 09:39 ; Admin Dose 100 MG; Start 03/02/17 at 09:00 Eye Lubricant 1 drop 1 drop Q4H PRN BOTH EYES ITCHING EYES Last administered on 03/11/17 08:20; Admin Dose 1 DROP; Start 03/01/17 at 15:30 Norepinephrine 16 mg/Dextrose 500 ml @ 0 mls/hr TITRATE IV Last administered on 03/04/17 18:28; Admin Dose 3.75 MLS/HR; Start 03/01/17 at 17:30 Propofol 100 ml @ 2.406 mls/ hr Q12H IV Last administered on 03/10/17 06:26 ; Admin Dose 14.436 MLS/HR; Start 03/01/17 at 19:30 Midazolam HCl (Versed) 50 ml @ 1 mls/hr TITRATE IV ; Start 03/01/17 at 19:30 Apixaban (Eliquis) 2.5 mg BID PO Last administered on 03/12/17 21:58; Admin Dose 2.5 MG; Start 03/04/17 at 21:00 Lansoprazole 30 mg 30 mg DAILY@06 GTB Last administered on 03/12/17 06:53; Admin Dose 30 MG; Start 03/06/17 at 06:00 Meropenem/Sodium Chloride 50 ml @ 100 mls/hr Q24H IVPB Last administered on 21:58; Admin Dose 100 MLS/HR; Start 03/06/17 at 21:00 Vancomycin HCl (Vancocin) 250 ml @ 125 mls/hr Q96H IVPB Last administered on 03/09/17 22:06; Admin Dose 125 MLS/HR; Start 03/09/17 at 22:00 Miscellaneous Information (Pending Santyl Order For Wound Care) This patient moraes... PRN PRN XX WOUND CARE; Start 03/10/17 at 15:00 Hydrocortisone (Solu-Cortef) 25 mg BID IV Last administered on 03/13/17 09:52 ; Admin Dose 25 MG; Start 03/13/17 at 09:00 Assessment/Plan Chief Complaint/Hosp Course 1. Acute on-chronic hypoxemic, hypercapnic respiratory failure, status post intubation, now extubated 2. Sick sinus syndrome, status post permanent pacemaker. 3. Atrial fibrillation with a slow ventricular response, heart rate under control with the pacemaker. 4. Septic shock: BP has improved now and pt is off of evophed drip now 5. Pneumonia. 6. Anemia. 7. History of hepatitis C. 8. History of renal transplant. 9. Renal failure, status post hemodialysis. 10. NSVT RECOMMENDATIONS: Antibiotic is being managed as per Infectious Disease recommendations. off of Procardia due to hypotension. eliquis as long as no bleeding Antirejection medications as per Renal. Dialysis as per Renal. replace lytes prn cont resp care, O2. . THANK YOU ROLAND DORSEY MD [facility] . Problems: ROLAND DORSEY MD Mar 13, 2017 10:39
[2017-03-13] MEDS: predniSONE 5 MG TAB PO SCH (10:43)
[2017-03-13] MEDS: APIXABAN 5 MG TABLET PO SCH ×2 (10:43→20:48)
[2017-03-13] MEDS: CYCLOSPORINE 25 MG CAP PO SCH ×2 (10:43→20:49)
[2017-03-13] MEDS: THIAMINE 100 MG TAB PO SCH (10:46)
--- NOTE | 2017-03-13 11:27 | CONS ---
Date/Time of Note Date/Time of Note DATE: 03/13/17 TIME: 11:22 Assessment/Plan Assessment/Plan Additional Assessment/Plan Chest x-ray was reviewed from yesterday morning which is showing bibasilar infiltrates/pleural effusions. Assessment and recommendations; 1. Patient admitted with severe bilateral pneumonia extubated yesterday with stable clinical status. However still requiring BiPAP currently at 16/5 with 40 % FiO2. 2. History of chronic immunosuppression owing to history of renal transplant, patient however now requiring hemodialysis. 3. History of recent pacemaker placement. 4. Underlying atrial flutter. Next Continue current treatment. Consultation Date/Type/Reason Admit Date/Time Mar 01, 2017 at 13:35 Initial Consult Date 03/01/17 Type of Consultation: Pulmonary/critical care 24 HR Interval Summary Free Text/Dictation Patient's condition is stable. He was extubated yesterday. Currently on BiPAP. Patient denies any shortness breath, chest pain. General exam; elderly male, on BiPAP. Awake and alert. Currently in no distress. Exam/Review of Systems Vital Signs Vitals Vital Signs Date Time Temp Pulse Resp B/P Pulse Ox O2 Delivery O2 Flow Rate FiO2 03/13/17 08:00 98.0 60 23 132/83 100 Nasal Cannula 3.0 03/13/17 05:40 30 Intake and Output 03/12/17 03/12/17 03/13/17 15:00 23:00 07:00 Intake Total 720 ml Output Total 3000 ml 30 ml Balance -2280 ml -30 ml Exam HEENT exam; supple neck, no JVD. No lymphadenopathy. Midline trachea. No thyromegaly. Patient has bilateral intraocular lens implants. Has multiple carious teeth. Chest exam; upper lobes are clear to auscultation with diminished breath sounds at lung bases bilaterally. S1-S2 audible, no murmurs. Pacemaker in left chest wall. Patient is in atrial flutter. Abdomen exam; soft, nontender. No organomegaly. Bowel sounds audible. Extremity exam; no peripheral edema. Patient does have ecchymosis involving all 4 extremities. COVERAGE ANALYST exam; no focal deficit. Results Result Diagram: 03/13/17 0445 03/13/17 0445 Results 24 hrs Laboratory Tests Test 03/12/17 23:45 03/13/17 01:45 03/13/17 04:00 03/13/17 04:45 Bedside Glucose 83 Blood Gas Specimen Source Blood arterial Blood arterial Arterial Blood Date Drawn 03/13/2017 1:38:23 AM 03/13/2017 3:50:00 AM Arterial Blood pH (Temp corrected) 7.258 *L 7.326 L Arterial Blood pCO2 (Temp correct) 68.8 H 55.4 H Arterial Blood pO2 (Temp corrected) 123.6 H 145.2 H Arterial Blood HCO3 30.0 H 28.3 H Arterial Blood Base Excess 1.6 1.5 Arterial Blood Oxygen Saturation 97.8 98.5 H Sly Test ACCEPTAB N/A Arterial Blood Gas Puncture Site Right Radial Right Brachial Arterial Blood Carboxyhemoglobin 0.3 0.1 Arterial Blood Methemoglobin 0.2 0.1 Blood Gas A-a O2 Differential 31.4 H 76.3 H Oxyhemoglobin Percent 97.3 98.3 Total Hemoglobin 11.2 L 10.7 L Blood Gas Temperature 37.0 37.0 Blood Gas Modality NASAL CANNULA BIPAP - S/T FiO2 33.0 40.0 Blood Gas Critical Value Read Back Chay BRADLEY RN Blood Gas Notified Whom KM KM Blood Gas Notified Time 03/13/2017 1:50:46 AM 03/13/2017 4:02:00 AM Blood Gas Respiration Rate 18.0 Blood Gas Actual Respiration Rate 18 Blood Gas Pressure Support 11 White Blood Count 4.9 Red Blood Count 3.45 L Hemoglobin 9.8 L Hematocrit 32.7 L Mean Corpuscular Volume 94.8 Mean Corpuscular Hemoglobin 28.4 L Mean Corpuscular Hemoglobin Concent 30.0 L Red Cell Distribution Width 15.4 H Platelet Count 145 Mean Platelet Volume 10.9 H Neutrophils % 79.7 H Lymphocytes % 11.5 L Monocytes % 7.2 Eosinophils % 0.0 Basophils % 0.2 Nucleated Red Blood Cells % 0.0 Neutrophils # 3.9 Lymphocytes # 0.6 L Monocytes # 0.4 Eosinophils # 0.0 Basophils # 0.0 Nucleated Red Blood Cells # 0.0 Sodium Level 139 Potassium Level 4.4 Chloride Level 98 Carbon Dioxide Level 29 Anion Gap 16 Blood Urea Nitrogen 63 H Creatinine 2.86 H Glucose Level 89 Calcium Level 8.4 Phosphorus Level 6.3 H Magnesium Level 2.0 Medications Medications Current Medications Acetaminophen (Tylenol Tab) 500 mg Q6H PRN PO PAIN AND OR ELEVATED TEMP Last administered on 03/10/17 20:08; Admin Dose 500 MG; Start 03/01/17 at 13:30 Lidocaine (Lidocaine 5% Oint) 1 applic BID TOP Last administered on 03/13/17 09:53; Admin Dose 1 APPLIC; Start 03/01/17 at 21:00 Lidocaine (Lidoderm) 1 patch DAILY TD Last administered on 03/13/17 09:53; Admin Dose 1 PATCH; Start 03/02/17 at 09:00 Metolazone (Zaroxolyn) 2.5 mg DAILY PO Last administered on 03/12/17 09:52; Admin Dose 2.5 MG; Start 03/02/17 at 09:00 Oxycodone HCl (Roxicodone) 2.5 mg Q6H PRN PO PAIN Last administered on 21:12; Admin Dose 2.5 MG; Start 03/01/17 at 13:30 Prednisone 5 mg 5 mg DAILY PO Last administered on 03/13/17 10:43; Admin Dose 5 MG; Start 03/02/17 at 09:00 Fluconazole/ Sodium Chloride (Diflucan 100 Mg/ NS (Pmx)) 50 ml @ 50 mls/hr Q24H IVPB Last administered on 03/12/17 16:20; Admin Dose 50 MLS/HR; Start at 16:30 Vancomycin HCl (Vanco Iv Per Pharmacy) PER PHARMACY DOSING NOTE XX ; Start 03/01 at 14:30 Eye Lubricant (Akwa Oint) 1 applic DAILY PRN RIGHT EYE ITCHING Last administered on 03/12/17 09:57; Admin Dose 1 APPLIC; Start 03/01/17 at 15:00 Bisacodyl (Dulcolax) 5 mg DAILY PRN PO CONSTIPATION Last administered on 10:14; Admin Dose 5 MG; Start 03/01/17 at 15:00 Cyclosporine (Sandimmune) 25 mg BID PO Last administered on 03/13/17 10:43; Admin Dose 25 MG; Start 03/01/17 at 21:00 Doxazosin Mesylate (Cardura) 2 mg QHS PO Last administered on 03/12/17 21:58 ; Admin Dose 2 MG; Start 03/01/17 at 21:00 Fluticasone Propionate (Flonase 0.05% Nasal) 1 spray BID NASAL Last administered on 03/13/17 09:54; Admin Dose 1 SPRAY; Start 03/01/17 at 21:00 Senna/Docusate Sodium (Senokot-S) 1 tab QHS PRN PO CONSTIPATION; Start at 15:00 Thiamine HCl (Vitamin B1) 100 mg DAILY PO Last administered on 03/13/17 10:46 ; Admin Dose 100 MG; Start 03/02/17 at 09:00 Eye Lubricant 1 drop 1 drop Q4H PRN BOTH EYES ITCHING EYES Last administered on 03/11/17 08:20; Admin Dose 1 DROP; Start 03/01/17 at 15:30 Norepinephrine 16 mg/Dextrose 500 ml @ 0 mls/hr TITRATE IV Last administered on 03/04/17 18:28; Admin Dose 3.75 MLS/HR; Start 03/01/17 at 17:30 Propofol 100 ml @ 2.406 mls/ hr Q12H IV Last administered on 03/10/17 06:26 ; Admin Dose 14.436 MLS/HR; Start 03/01/17 at 19:30 Midazolam HCl (Versed) 50 ml @ 1 mls/hr TITRATE IV ; Start 03/01/17 at 19:30 Apixaban (Eliquis) 2.5 mg BID PO Last administered on 03/13/17 10:43; Admin Dose 2.5 MG; Start 03/04/17 at 21:00 Lansoprazole 30 mg 30 mg DAILY@06 GTB Last administered on 03/12/17 06:53; Admin Dose 30 MG; Start 03/06/17 at 06:00 Meropenem/Sodium Chloride 50 ml @ 100 mls/hr Q24H IVPB Last administered on 21:58; Admin Dose 100 MLS/HR; Start 03/06/17 at 21:00 Vancomycin HCl (Vancocin) 250 ml @ 125 mls/hr Q96H IVPB Last administered on 03/09/17 22:06; Admin Dose 125 MLS/HR; Start 03/09/17 at 22:00 [facility] This patient moraes... PRN PRN XX WOUND CARE; Start 03/10/17 at 15:00 Hydrocortisone (Solu-Cortef) 25 mg BID IV Last administered on 03/13/17t 09:52 ; Admin Dose 25 MG; Start 03/13/17 at 09:00 PAOLA RUIZ Mar 13, 2017 11:27
--- NOTE | 2017-03-13 14:09 | PN ---
DATE: 03/13/2017 INFECTIOUS DISEASE PROGRESS NOTE SUBJECTIVE: Patient is lying comfortably in bed on face mask. WBC 4.1, H and H 9.8 and 32.7, plate lets 145, neutrophils 79.7, BUN 63, creatinine 2.86. VITAL SIGNS: Temperature 98, pulse 60, respirations 23, blood pressure 132/83, saturation 100%. INDWELLINGS: Right chest PermCath, femoral triple-lumen catheter. ANTIMICROBIALS: 1. Vancomycin. 2. Meropenem. 3. Fluconazole. PHYSICAL EXAMINATION: GENERAL: This is a chronically ill-appearing, elderly man who is in no distress. HEENT: Head atraumatic, normocephalic. Sclerae anicteric. Buccal mucosa dry. NECK: Supple. CHEST: Rise symmetrical. Breath sounds with scattered crackles. HEART: S1, S2. ABDOMEN: Soft, bowel tones present. EXTREMITIES: No cyanosis. ASSESSMENT: 1. Status post septic shock. 2. Acute respiratory failure, status post extubated yesterday and currently on BiPAP. 3. Status post urinary tract infection and pneumonia. 4. End-stage renal disease, hemodialysis dependent. 5. History of kidney transplant on immunosuppressive therapy. 6. History of sick sinus syndrome, status post permanent pacemaker placement on 02/27/2017. PLAN: The patient remains stable post-extubation and completing antibiotics. He is being followed by multiple consultants. Continue present care. Dictated By: MYLA CHIU DEVOPS ARCHITECT for VIC ARMAS/NTS Conf#: [id number] DID#: [id number]
--- NOTE | 2017-03-13 14:09 | PN ---
DATE: 03/13/2017 INFECTIOUS DISEASE PROGRESS NOTE SUBJECTIVE: Patient is lying comfortably in bed on face mask. WBC 4.1, H and H 9.8 and 32.7, plate lets 145, neutrophils 79.7, BUN 63, creatinine 2.86. VITAL SIGNS: Temperature 98, pulse 60, respirations 23, blood pressure 132/83, saturation 100%. INDWELLINGS: Right chest PermCath, femoral triple-lumen catheter. ANTIMICROBIALS: 1. Vancomycin. 2. Meropenem. 3. Fluconazole. PHYSICAL EXAMINATION: GENERAL: This is a chronically ill-appearing, elderly man who is in no distress. HEENT: Head atraumatic, normocephalic. Sclerae anicteric. Buccal mucosa dry. NECK: Supple. CHEST: Rise symmetrical. Breath sounds with scattered crackles. HEART: S1, S2. ABDOMEN: Soft, bowel tones present. EXTREMITIES: No cyanosis. ASSESSMENT: 1. Status post septic shock. 2. Acute respiratory failure, status post extubated yesterday and currently on BiPAP. 3. Status post urinary tract infection and pneumonia. 4. End-stage renal disease, hemodialysis dependent. 5. History of kidney transplant on immunosuppressive therapy. 6. History of sick sinus syndrome, status post permanent pacemaker placement on 02/27/2017. PLAN: The patient remains stable post-extubation and completing antibiotics. He is being followed by multiple consultants. Continue present care. Dictated By: MYLA CHIU BUSINESS ANALYST PROJECT MANAGER for VIC ARMAS/NTS Conf#: [id number] DID#: [id number]
--- NOTE | 2017-03-13 14:09 | PN ---
DATE: 03/13/2017 INFECTIOUS DISEASE PROGRESS NOTE SUBJECTIVE: Patient is lying comfortably in bed on face mask. WBC 4.1, H and H 9.8 and 32.7, plate lets 145, neutrophils 79.7, BUN 63, creatinine 2.86. VITAL SIGNS: Temperature 98, pulse 60, respirations 23, blood pressure 132/83, saturation 100%. INDWELLINGS: Right chest PermCath, femoral triple-lumen catheter. ANTIMICROBIALS: 1. Vancomycin. 2. Meropenem. 3. Fluconazole. PHYSICAL EXAMINATION: GENERAL: This is a chronically ill-appearing, elderly man who is in no distress. HEENT: Head atraumatic, normocephalic. Sclerae anicteric. Buccal mucosa dry. NECK: Supple. CHEST: Rise symmetrical. Breath sounds with scattered crackles. HEART: S1, S2. ABDOMEN: Soft, bowel tones present. EXTREMITIES: No cyanosis. ASSESSMENT: 1. Status post septic shock. 2. Acute respiratory failure, status post extubated yesterday and currently on BiPAP. 3. Status post urinary tract infection and pneumonia. 4. End-stage renal disease, hemodialysis dependent. 5. History of kidney transplant on immunosuppressive therapy. 6. History of sick sinus syndrome, status post permanent pacemaker placement on 02/27/2017. PLAN: The patient remains stable post-extubation and completing antibiotics. He is being followed by multiple consultants. Continue present care. Dictated By: MYLA CHIU PMO CONSULTANT for VIC ARMAS/NTS Conf#: [id number] DID#: [id number]
[2017-03-13] MEDS: ARTIFICIAL TEARS 15 ML OPH BOTH EYES PRN ×2 (14:36→21:47)
[2017-03-13] MEDS: FLUCONAZOLE 100 MG/NS (PMX) 50 ML IVPB SCH (16:52)
[2017-03-13] MEDS: MEROPENEM 500MG/50 ML (PMX) 50 ML IVPB SCH (20:47)
[2017-03-13] MEDS: VANCOMYCIN 1 GM in NS 250 ML IVPB SCH (21:39)
[2017-03-13] MEDS: DOXAZOSIN 2 MG TAB PO SCH (21:40)
[2017-03-14] VITALS (44 sets, daily range): BP systolic 103–142; BP diastolic 63–98; PULSE 60–82; RESP 21–58
[2017-03-14] MEDS: LANSOPRAZOLE 30 MG CAP GTB SCH (05:32)
[2017-03-14] MEDS: PROPOFOL 100 ML IV SCH ×2 (07:17→19:30)
--- NOTE | 2017-03-14 08:02 | CONS ---
Date/Time of Note Date/Time of Note DATE: 03/14/17 TIME: 08:00 Consult Date/Type/Reason Admit Date/Time Mar 01, 2017 at 13:35 Initial Consult Date 03/01/17 Type of Consultation: cardiology Reason for Consultation CARDIOLOGY FOLLOW UP NOTE: S: Discussed with staff and rhythm strip is reviewed. Patient remains in demand ventricular pacemaker. Patient remains extubated and BP remains stable off of pressors. but pt with increasing resp distress last night and had to be placed back on BIPAP. he denies any cp or pressure to me. no active bleeding is reported O: General: thin man, ON BIPAP. HEENT: NC/AT. . NECK: . no stridor. CV: RRR. systolic murmur; no gallop or rubs. chest: s/p left sided PPM, no hematoma or bleeding PULM: no wheezing + diffuse rhonchi. GI: SOFT, NT, ND, no rebound or guarding Extremity:mild LE edema. no clubbing. neuro: awake and alert. responds appropriately . Psych: calm and pleasant rectal: deferred : normal male Objective Vital Signs Date Time Temp Pulse Resp B/P Pulse Ox O2 Delivery O2 Flow Rate FiO2 03/14/17 07:00 60 21 142/98 100 BIPAP 03/14/17 05:54 35 03/14/17 04:00 98.0 03/13/17 08:00 3.0 Intake and Output 03/13/17 03/13/17 03/14/17 15:00 23:00 07:00 Intake Total 50 ml 770 ml 40 ml Output Total 4600 ml Balance 50 ml -3830 ml 40 ml Results/Medications Result Diagram: 03/14/17 0502 03/14/17 0502 Results 24 hrs Laboratory Tests Test 03/14/17 05:02 White Blood Count 5.3 Red Blood Count 3.39 L Hemoglobin 9.6 L Hematocrit 32.0 L Mean Corpuscular Volume 94.4 Mean Corpuscular Hemoglobin 28.3 L Mean Corpuscular Hemoglobin Concent 30.0 L Red Cell Distribution Width 15.2 H Platelet Count 150 Mean Platelet Volume 11.2 H Neutrophils % 67.6 Lymphocytes % 19.8 Monocytes % 11.1 H Eosinophils % 0.4 Basophils % 0.0 Nucleated Red Blood Cells % 0.0 Neutrophils # 3.6 Lymphocytes # 1.1 Monocytes # 0.6 Eosinophils # 0.0 Basophils # 0.0 Nucleated Red Blood Cells # 0.0 Sodium Level 137 Potassium Level 3.9 Chloride Level 100 Carbon Dioxide Level 25 Anion Gap 16 Blood Urea Nitrogen 44 #H Creatinine 2.20 H Glucose Level 70 Calcium Level 7.9 L Phosphorus Level 5.0 H Magnesium Level 1.9 Medications Current Medications Acetaminophen (Tylenol Tab) 500 mg Q6H PRN PO PAIN AND OR ELEVATED TEMP Last administered on 03/10/17 20:08; Admin Dose 500 MG; Start 03/01/17 at 13:30 Lidocaine (Lidocaine 5% Oint) 1 applic BID TOP Last administered on 03/13/17 20:49; Admin Dose 1 APPLIC; Start 03/01/17 at 21:00 Lidocaine (Lidoderm) 1 patch DAILY TD Last administered on 03/13/17 09:53; Admin Dose 1 PATCH; Start 03/02/17 at 09:00 Metolazone (Zaroxolyn) 2.5 mg DAILY PO Last administered on 03/12/17 09:52; Admin Dose 2.5 MG; Start 03/02/17 at 09:00 Oxycodone HCl (Roxicodone) 2.5 mg Q6H PRN PO PAIN Last administered on 21:12; Admin Dose 2.5 MG; Start 03/01/17 at 13:30 Prednisone (Prednisone) 5 mg DAILY PO Last administered on 03/13/17 10:43; Admin Dose 5 MG; Start 03/02/17 at 09:00 Eye Lubricant (Akwa Oint) 1 applic DAILY PRN RIGHT EYE ITCHING Last administered on 03/12/17 09:57; Admin Dose 1 APPLIC; Start 03/01/17 at 15:00 Bisacodyl (Dulcolax) 5 mg DAILY PRN PO CONSTIPATION Last administered on 10:14; Admin Dose 5 MG; Start 03/01/17 at 15:00 Cyclosporine (Sandimmune) 25 mg BID PO Last administered on 03/13/17 20:49; Admin Dose 25 MG; Start 03/01/17 at 21:00 Doxazosin Mesylate (Cardura) 2 mg QHS PO Last administered on 03/13/17 21:40 ; Admin Dose 2 MG; Start 03/01/17 at 21:00 Fluticasone Propionate (Flonase 0.05% Nasal) 1 spray BID NASAL Last administered on 03/13/17 20:48; Admin Dose 1 SPRAY; Start 03/01/17 at 21:00 Senna/Docusate Sodium (Senokot-S) 1 tab QHS PRN PO CONSTIPATION; Start at 15:00 Thiamine HCl (Vitamin B1) 100 mg DAILY PO Last administered on 03/13/17 10:46 ; Admin Dose 100 MG; Start 03/02/17 at 09:00 Eye Lubricant 1 drop 1 drop Q4H PRN BOTH EYES ITCHING EYES Last administered on 03/13/17 21:47; Admin Dose 1 DROP; Start 03/01/17 at 15:30 Norepinephrine 16 mg/Dextrose 500 ml @ 0 mls/hr TITRATE IV Last administered on 03/04/17 18:28; Admin Dose 3.75 MLS/HR; Start 03/01/17 at 17:30 Propofol 100 ml @ 2.406 mls/ hr Q12H IV Last administered on 03/10/17 06:26 ; Admin Dose 14.436 MLS/HR; Start 03/01/17 at 19:30 Midazolam HCl (Versed) 50 ml @ 1 mls/hr TITRATE IV ; Start 03/01/17 at 19:30 Apixaban (Eliquis) 2.5 mg BID PO Last administered on 03/13/17 20:48; Admin Dose 2.5 MG; Start 03/04/17 at 21:00 Lansoprazole (Prevacid) 30 mg DAILY@06 GTB Last administered on 03/14/17 05: 32; Admin Dose 30 MG; Start 03/06/17 at 06:00 Miscellaneous Information (Pending [facility]yl Order For Wound Care) This patient moraes... PRN PRN XX WOUND CARE; Start 03/10/17 at 15:00 Hydrocortisone (Solu-Cortef) 25 mg BID IV Last administered on 03/13/17 20:47 ; Admin Dose 25 MG; Start 03/13/17 at 09:00 Assessment/Plan Chief Complaint/Hosp Course 1. Acute on-chronic hypoxemic, hypercapnic respiratory failure, status post intubation, now extubated but on BIPAP now 2. Sick sinus syndrome, status post permanent pacemaker. 3. Atrial fibrillation with a slow ventricular response, heart rate under control with the pacemaker. 4. Septic shock: BP has improved now and pt is off of levophed drip now 5. Pneumonia. 6. Anemia. 7. History of hepatitis C. 8. History of renal transplant. 9. Renal failure, status post hemodialysis. 10. NSVT RECOMMENDATIONS: Antibiotic is being managed as per Infectious Disease recommendations. off of Procardia due to hypotension. cont eliquis as long as no bleeding Antirejection medications as per Renal. Dialysis as per Renal. replace lytes prn cont resp care, O2. HD as per renal . O2 and BIPAP as needed. THANK YOU ROLAND DORSEY MD [facility] . Problems: ROLAND DORSEY MD Mar 14, 2017 08:02
--- NOTE | 2017-03-14 08:07 | PN ---
DATE: 03/14/2017 SUBJECTIVE: The patient is currently on BiPAP, has remained on BiPAP overnight. The patient is als o currently receiving hemodialysis. No other events noted. No hemoptysis, hematemesis or hematoche mariola. PHYSICAL EXAMINATION: VITAL SIGNS: Blood pressure is 142/98, respirations 21, pulse 60, temperature 98.0. HEENT: Head is normocephalic. NECK: Supple. HEART: Regular rate. LUNGS: Show diminished breath sounds, left base. ABDOMEN: Soft, nontender to palpation. No rebound or guarding. EXTREMITIES: Negative for clubbing, cyanosis, no edema. DERMATOLOGIC: No rashes. MUSCULOSKELETAL: No joint effusions. NEUROLOGIC: No change in exam. MEDICATIONS: The patient's medications have been reviewed. LABORATORY DATA: Shows a white count of 5.3, hemoglobin 9.6, hematocrit 32.0, platelet count is 150 . Sodium 137, potassium 3.9, BUN 44, creatinine 2.20, phosphorus 5.0. ASSESSMENT AND PLAN: 1. Respiratory failure, acute. The patient is status post extubation. Underlying etiology is seco ndary to pneumonia and congestive heart failure. The patient currently remains on BiPAP, will son nue, attempt to wean off BiPAP. Will check an ABG, follow up with pulmonary. 2. Sepsis, status post shock secondary to pneumonia. Continue current antibiotic regimen. Follow up with Infectious Disease. 3. 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 Etiology is secondary to a cute tubular necrosis. The patient is currently dialysis dependent. Will monitor for signs of nydia very. 4. History of end-stage renal disease, status post cadaveric renal transplant. The patient is curr ently in acute kidney injury as stated above. Continue current treatment plan. Continue immunosupp ressive regimen. 5. Sinus arrhythmia, status post pacemaker. Follow up with cardiology. 6. Anemia. Monitor hemoglobin and hematocrit levels. 7. Mineral bone disorder. Will monitor calcium and phosphorus levels. 8. Acute encephalopathy, etiology is toxic metabolic. Continue to monitor. 9. Nutrition. Will advance diet as tolerated. If the patient is unable to tolerate p.o., will sta rt the patient on artificial nutrition. 10. History of hepatitis C. 11. History of gout. 12. Gastrointestinal and deep venous thrombosis prophylaxis. Dictated By: PATRIA CHANEY/NTS Conf#: [id number] DID#: [id number]
[2017-03-14] MEDS: HYDROCORTISONE 100 MG INJ IV SCH ×2 (09:09→20:38)
[2017-03-14] MEDS: METOLAZONE 2.5 MG TAB PO SCH (09:09)
[2017-03-14] MEDS: APIXABAN 5 MG TABLET PO SCH ×2 (09:09→20:38)
[2017-03-14] MEDS: FLUTICASONE 0.05% 16 GM NAS SPRAY NASAL SCH ×2 (09:09→20:38)
[2017-03-14] MEDS: THIAMINE 100 MG TAB PO SCH (09:09)
[2017-03-14] MEDS: CYCLOSPORINE 25 MG CAP PO SCH ×2 (09:09→20:39)
[2017-03-14] MEDS: predniSONE 5 MG TAB PO SCH (09:09)
[2017-03-14] MEDS: BALSAM PERU/CASTOR OIL 60 GM TUBE TOP SCH (09:10)
[2017-03-14] MEDS: LIDOCAINE 5% 35 GM OINT TOP SCH ×2 (09:10→20:39)
[2017-03-14] MEDS: LIDOCAINE 5% PATCH TD SCH (09:11)
--- NOTE | 2017-03-14 11:28 | CONS ---
Date/Time of Note Date/Time of Note DATE: 03/14/17 TIME: 11:25 Assessment/Plan Assessment/Plan Additional Assessment/Plan Assessment and recommendations; 1. Patient admitted with bilateral pneumonia with marked interval improvement. Status post extubation about 48 hours ago. Requiring BiPAP. 2. Chronic immunosuppression owing to history of renal transplant, however patient has renal failure and requiring hemodialysis on a regular basis. 3. Generalized deconditioning. 4. Thrombocytopenia. 5. Anemia. 6. Some element of CHF. 7. History of recent pacemaker placement. Continue current supportive care. Consultation Date/Type/Reason Admit Date/Time Mar 01, 2017 at 13:35 Initial Consult Date 03/01/17 Type of Consultation: Pulmonary/critical care 24 HR Interval Summary Free Text/Dictation Patient's condition is stable. However still requiring BiPAP. Patient appears quite comfortable and denies any shortness of breath. General exam; elderly male, on BiPAP, currently in no distress. Awake and alert. Exam/Review of Systems Vital Signs Vitals Vital Signs Date Time Temp Pulse Resp B/P Pulse Ox O2 Delivery O2 Flow Rate FiO2 03/14/17 11:00 68 34 126/77 100 Nasal Cannula 4.0 03/14/17 08:00 98.8 03/14/17 05:54 35 Intake and Output 03/13/17 03/13/17 03/14/17 15:00 23:00 07:00 Intake Total 50 ml 770 ml 40 ml Output Total 4600 ml Balance 50 ml -3830 ml 40 ml Exam HEENT exam; supple neck, positive JVD. No lymphadenopathy. Midline trachea. No thyromegaly. Has bilateral intraocular lens implants. Patient status post bilateral eyelid surgery. Patient multiple carious teeth. Neck Chest exam; diminished breath on lung bases. Upper lobes are clear to auscultation. S1-S2 audible, pacemaker in left chest wall. Regular paced rhythm. Abdomen exam; soft, no organomegaly. Nontender. Bowel sounds audible. Extremity exam; no peripheral edema. Patient does have ecchymosis involving all 4 extremities. VISUAL DISPLAY MANAGER exam; no focal deficit. Results Result Diagram: 03/14/17 0502 03/14/17 0502 Results 24 hrs Laboratory Tests Test 03/14/17 05:02 White Blood Count 5.3 Red Blood Count 3.39 L Hemoglobin 9.6 L Hematocrit 32.0 L Mean Corpuscular Volume 94.4 Mean Corpuscular Hemoglobin 28.3 L Mean Corpuscular Hemoglobin Concent 30.0 L Red Cell Distribution Width 15.2 H Platelet Count 150 Mean Platelet Volume 11.2 H Neutrophils % 67.6 Lymphocytes % 19.8 Monocytes % 11.1 H Eosinophils % 0.4 Basophils % 0.0 Nucleated Red Blood Cells % 0.0 Neutrophils # 3.6 Lymphocytes # 1.1 Monocytes # 0.6 Eosinophils # 0.0 Basophils # 0.0 Nucleated Red Blood Cells # 0.0 Sodium Level 137 Potassium Level 3.9 Chloride Level 100 Carbon Dioxide Level 25 Anion Gap 16 Blood Urea Nitrogen 44 #H Creatinine 2.20 H Glucose Level 70 Calcium Level 7.9 L Phosphorus Level 5.0 H Magnesium Level 1.9 Medications Medications Current Medications Acetaminophen (Tylenol Tab) 500 mg Q6H PRN PO PAIN AND OR ELEVATED TEMP Last administered on 03/10/17 20:08; Admin Dose 500 MG; Start 03/01/17 at 13:30 Lidocaine (Lidocaine 5% Oint) 1 applic BID TOP Last administered on 03/14/17 09:10; Admin Dose 1 APPLIC; Start 03/01/17 at 21:00 Lidocaine (Lidoderm) 1 patch DAILY TD Last administered on 03/14/17 09:11; Admin Dose 1 PATCH; Start 03/02/17 at 09:00 Metolazone (Zaroxolyn) 2.5 mg DAILY PO Last administered on 03/14/17 09:09; Admin Dose 2.5 MG; Start 03/02/17 at 09:00 Oxycodone HCl (Roxicodone) 2.5 mg Q6H PRN PO PAIN Last administered on 21:12; Admin Dose 2.5 MG; Start 03/01/17 at 13:30 Prednisone (Prednisone) 5 mg DAILY PO Last administered on 03/14/17 09:09; Admin Dose 5 MG; Start 03/02/17 at 09:00 Eye Lubricant (Akwa Oint) 1 applic DAILY PRN RIGHT EYE ITCHING Last administered on 03/12/17 09:57; Admin Dose 1 APPLIC; Start 03/01/17 at 15:00 Bisacodyl (Dulcolax) 5 mg DAILY PRN PO CONSTIPATION Last administered on 10/9/ 17at 10:14; Admin Dose 5 MG; Start 03/01/17 at 15:00 Cyclosporine (Sandimmune) 25 mg BID PO Last administered on 03/14/17 09:09; Admin Dose 25 MG; Start 03/01/17 at 21:00 Doxazosin Mesylate (Cardura) 2 mg QHS PO Last administered on 03/13/17 21:40 ; Admin Dose 2 MG; Start 03/01/17 at 21:00 Fluticasone Propionate (Flonase 0.05% Nasal) 1 spray BID NASAL Last administered on 03/14/17 09:09; Admin Dose 1 SPRAY; Start 03/01/17 at 21:00 Senna/Docusate Sodium (Senokot-S) 1 tab QHS PRN PO CONSTIPATION; Start at 15:00 Thiamine HCl (Vitamin B1) 100 mg DAILY PO Last administered on 03/14/17 09:09 ; Admin Dose 100 MG; Start 03/02/17 at 09:00 Eye Lubricant 1 drop 1 drop Q4H PRN BOTH EYES ITCHING EYES Last administered on 03/13/17 21:47; Admin Dose 1 DROP; Start 03/01/17 at 15:30 Norepinephrine 16 mg/Dextrose 500 ml @ 0 mls/hr TITRATE IV Last administered on 03/04/17 18:28; Admin Dose 3.75 MLS/HR; Start 03/01/17 at 17:30 Propofol 100 ml @ 2.406 mls/ hr Q12H IV Last administered on 03/10/17 06:26 ; Admin Dose 14.436 MLS/HR; Start 03/01/17 at 19:30 Midazolam HCl (Versed) 50 ml @ 1 mls/hr TITRATE IV ; Start 03/01/17 at 19:30 Apixaban (Eliquis) 2.5 mg BID PO Last administered on 03/14/17 09:09; Admin Dose 2.5 MG; Start 03/04/17 at 21:00 Lansoprazole (Prevacid) 30 mg DAILY@06 GTB Last administered on 03/14/17 05: 32; Admin Dose 30 MG; Start 03/06/17 at 06:00 Miscellaneous Information (Pending [facility] Order For Wound Care) This patient moraes... PRN PRN XX WOUND CARE; Start 03/10/17 at 15:00 Hydrocortisone (Solu-Cortef) 25 mg BID IV Last administered on 03/14/17 09:09 ; Admin Dose 25 MG; Start 03/13/17 at 09:00 PAOLA RUIZ Mar 14, 2017 11:28
[2017-03-14] MEDS: BISACODYL (EC) 5 MG TAB PO PRN (12:30)
[2017-03-14] MEDS: EPOETIN 4000 UNITS/1 ML INJ (ESRD) SC SCH (12:32)
--- NOTE | 2017-03-14 13:01 | PN ---
DATE: 03/14/2017 SUBJECTIVE: The patient is awake, looks comfortable on nasal cannula. No fevers. VITAL SIGNS: Temperature 98.6, pulse 60, respirations 30, blood pressure 122/69, saturation 92 on 4 liters. WBC 5.8, hemoglobin and hematocrit 9.3 and 32, platelets 150, neutrophils 67.6. INDWELLINGS: The patient has femoral triple lumen catheter, right chest Perm-A-Cath. PHYSICAL EXAMINATION: GENERAL: Well-developed, fragile, elderly man who is awake, in no distress. HEENT: Head atraumatic, normocephalic. Sclerae anicteric. Buccal mucosa dry. NECK: Supple. CHEST: Rise symmetrical. Breath sounds diminished to bases. HEART: S1, S2. ABDOMEN: Soft. Bowel tones present. ASSESSMENT: 1. Status post septic shock, pneumonia, respiratory failure. 2. Status post urinary tract infection. 3. End-stage renal disease, hemodialysis dependent. 4. History of kidney transplant. 5. Sick sinus syndrome, status post permanent pacemaker placed on 02/27/2017. PLAN: The patient remains stable off antibiotics. Continue present care, anti-aspiration measures. Follow recommendations of specialists. Dictated By: MYLA CHIU [employer] MAIL CARRIER for VIC ARMAS/BECKIE Conf#: [id number] DID#: [id number]
--- NOTE | 2017-03-14 13:01 | PN ---
DATE: 03/14/2017 SUBJECTIVE: The patient is awake, looks comfortable on nasal cannula. No fevers. VITAL SIGNS: Temperature 98.6, pulse 60, respirations 30, blood pressure 122/69, saturation 92 on 4 liters. WBC 5.8, hemoglobin and hematocrit 9.3 and 32, platelets 150, neutrophils 67.6. INDWELLINGS: The patient has femoral triple lumen catheter, right chest Perm-A-Cath. PHYSICAL EXAMINATION: GENERAL: Well-developed, fragile, elderly man who is awake, in no distress. HEENT: Head atraumatic, normocephalic. Sclerae anicteric. Buccal mucosa dry. NECK: Supple. CHEST: Rise symmetrical. Breath sounds diminished to bases. HEART: S1, S2. ABDOMEN: Soft. Bowel tones present. ASSESSMENT: 1. Status post septic shock, pneumonia, respiratory failure. 2. Status post urinary tract infection. 3. End-stage renal disease, hemodialysis dependent. 4. History of kidney transplant. 5. Sick sinus syndrome, status post permanent pacemaker placed on 02/27/2017. PLAN: The patient remains stable off antibiotics. Continue present care, anti-aspiration measures. Follow recommendations of specialists. Dictated By: MYLA CHIU ANCHORMAN for VIC ARMAS/BECKIE Conf#: [id number] DID#: [id number]
--- NOTE | 2017-03-14 13:01 | PN ---
DATE: 03/14/2017 SUBJECTIVE: The patient is awake, looks comfortable on nasal cannula. No fevers. VITAL SIGNS: Temperature 98.6, pulse 60, respirations 30, blood pressure 122/69, saturation 92 on 4 liters. WBC 5.8, hemoglobin and hematocrit 9.3 and 32, platelets 150, neutrophils 67.6. INDWELLINGS: The patient has femoral triple lumen catheter, right chest Perm-A-Cath. PHYSICAL EXAMINATION: GENERAL: Well-developed, fragile, elderly man who is awake, in no distress. HEENT: Head atraumatic, normocephalic. Sclerae anicteric. Buccal mucosa dry. NECK: Supple. CHEST: Rise symmetrical. Breath sounds diminished to bases. HEART: S1, S2. ABDOMEN: Soft. Bowel tones present. ASSESSMENT: 1. Status post septic shock, pneumonia, respiratory failure. 2. Status post urinary tract infection. 3. End-stage renal disease, hemodialysis dependent. 4. History of kidney transplant. 5. Sick sinus syndrome, status post permanent pacemaker placed on 02/27/2017. PLAN: The patient remains stable off antibiotics. Continue present care, anti-aspiration measures. Follow recommendations of specialists. Dictated By: MYLA CHIU MOTORCYCLE SUBASSEMBLY REPAIRER for VIC ARMAS/BECKIE Conf#: [id number] DID#: [id number]
[2017-03-14] MEDS: ARTIFICIAL TEARS 15 ML OPH BOTH EYES PRN (16:27)
[2017-03-14] MEDS: DOXAZOSIN 2 MG TAB PO SCH (20:38)
[2017-03-15] VITALS (65 sets, daily range): BP systolic 103–146; BP diastolic 64–127; PULSE 60–75; RESP 12–50
[2017-03-15] MEDS: LANSOPRAZOLE 30 MG CAP GTB SCH (05:23)
[2017-03-15] MEDS: PROPOFOL 100 ML IV SCH ×2 (07:30→19:30)
[2017-03-15] MEDS: BALSAM PERU/CASTOR OIL 60 GM TUBE TOP SCH (09:18)
[2017-03-15] MEDS: LIDOCAINE 5% 35 GM OINT TOP SCH ×2 (09:18→20:15)
[2017-03-15] MEDS: HYDROCORTISONE 100 MG INJ IV SCH ×2 (09:19→20:14)
[2017-03-15] MEDS: FLUTICASONE 0.05% 16 GM NAS SPRAY NASAL SCH ×2 (09:19→20:14)
[2017-03-15] MEDS: THIAMINE 100 MG TAB PO SCH (09:24)
[2017-03-15] MEDS: APIXABAN 5 MG TABLET PO SCH ×2 (09:24→20:15)
[2017-03-15] MEDS: LIDOCAINE 5% PATCH TD SCH (09:24)
[2017-03-15] MEDS: CYCLOSPORINE 25 MG CAP PO SCH ×2 (09:24→20:15)
[2017-03-15] MEDS: METOLAZONE 2.5 MG TAB PO SCH (09:25)
[2017-03-15] MEDS: predniSONE 5 MG TAB PO SCH (09:25)
--- NOTE | 2017-03-15 09:52 | CONS ---
Date/Time of Note Date/Time of Note DATE: 03/15/17 TIME: 09:51 Consult Date/Type/Reason Admit Date/Time Mar 01, 2017 at 13:35 Initial Consult Date 03/01/17 Type of Consultation: cardiology Subjective CARDIOLOGY FOLLOW UP NOTE: S: d/w Dr Connor Discussed with staff and rhythm strip is reviewed. Patient remains in demand ventricular pacemaker. Patient remains extubated and BP remains stable off of pressors. but pt intermittently with increasing resp distress . he denies any cp or pressure to me. no active bleeding is reported O: General: thin man, ON BIPAP. HEENT: NC/AT. . NECK: . no stridor. CV: RRR. systolic murmur; no gallop or rubs. chest: s/p left sided PPM, no hematoma or bleeding PULM: no wheezing + diffuse rhonchi. GI: SOFT, NT, ND, no rebound or guarding Extremity:mild LE edema. no clubbing. neuro: awake and alert. responds appropriately . Psych: calm and pleasant rectal: deferred : normal male Objective Vital Signs Date Time Temp Pulse Resp B/P Pulse Ox O2 Delivery O2 Flow Rate FiO2 03/15/17 06:00 98.0 63 23 136/89 100 BIPAP 03/15/17 05:00 30 03/14/17 18:28 3.0 Intake and Output 03/14/17 03/14/17 03/15/17 15:00 23:00 07:00 Intake Total 400 ml 360 ml 240 ml Output Total 3300 ml Balance -2900 ml 360 ml 240 ml Results/Medications Result Diagram: 03/15/17 0450 03/15/17 0450 Results 24 hrs Laboratory Tests Test 03/14/17 11:29 03/14/17 11:40 03/14/17 12:43 03/15/17 04:50 Bedside Glucose 61 L 72 98 White Blood Count 4.6 L Red Blood Count 3.31 L Hemoglobin 9.4 L Hematocrit 31.3 L Mean Corpuscular Volume 94.6 Mean Corpuscular Hemoglobin 28.4 L Mean Corpuscular Hemoglobin Concent 30.0 L Red Cell Distribution Width 15.4 H Platelet Count 148 Mean Platelet Volume 11.1 H Neutrophils % 66.5 Lymphocytes % 20.6 Monocytes % 11.4 H Eosinophils % 0.4 Basophils % 0.0 Nucleated Red Blood Cells % 0.0 Neutrophils # 3.0 Lymphocytes # 0.9 Monocytes # 0.5 Eosinophils # 0.0 Basophils # 0.0 Nucleated Red Blood Cells # 0.0 Sodium Level 138 Potassium Level 4.0 Chloride Level 100 Carbon Dioxide Level 27 Anion Gap 15 Blood Urea Nitrogen 35 H Creatinine 2.19 H Glucose Level 79 Calcium Level 7.9 L Phosphorus Level 4.5 Magnesium Level 1.9 Medications Current Medications Acetaminophen (Tylenol Tab) 500 mg Q6H PRN PO PAIN AND OR ELEVATED TEMP Last administered on 03/10/17 20:08; Admin Dose 500 MG; Start 03/01/17 at 13:30 Lidocaine (Lidocaine 5% Oint) 1 applic BID TOP Last administered on 03/14/17 20:39; Admin Dose 1 APPLIC; Start 03/01/17 at 21:00 Lidocaine (Lidoderm) 1 patch DAILY TD Last administered on 03/14/17 09:11; Admin Dose 1 PATCH; Start 03/02/17 at 09:00 Metolazone (Zaroxolyn) 2.5 mg DAILY PO Last administered on 03/14/17 09:09; Admin Dose 2.5 MG; Start 03/02/17 at 09:00 Oxycodone HCl (Roxicodone) 2.5 mg Q6H PRN PO PAIN Last administered on 21:12; Admin Dose 2.5 MG; Start 03/01/17 at 13:30 Prednisone (Prednisone) 5 mg DAILY PO Last administered on 03/14/17 09:09; Admin Dose 5 MG; Start 03/02/17 at 09:00 Eye Lubricant (Akwa Oint) 1 applic DAILY PRN RIGHT EYE ITCHING Last administered on 03/12/17 09:57; Admin Dose 1 APPLIC; Start 03/01/17 at 15:00 Bisacodyl (Dulcolax) 5 mg DAILY PRN PO CONSTIPATION Last administered on 12:30; Admin Dose 5 MG; Start 03/01/17 at 15:00 Cyclosporine (Sandimmune) 25 mg BID PO Last administered on 03/14/17 20:39; Admin Dose 25 MG; Start 03/01/17 at 21:00 Doxazosin Mesylate (Cardura) 2 mg QHS PO Last administered on 03/14/17 20:38 ; Admin Dose 2 MG; Start 03/01/17 at 21:00 Fluticasone Propionate (Flonase 0.05% Nasal) 1 spray BID NASAL Last administered on 03/14/17 20:38; Admin Dose 1 SPRAY; Start 03/01/17 at 21:00 Senna/Docusate Sodium (Senokot-S) 1 tab QHS PRN PO CONSTIPATION Last administered on 03/14/17 12:30; Admin Dose 1 TAB; Start 03/01/17 at 15:00 Thiamine HCl (Vitamin B1) 100 mg DAILY PO Last administered on 03/14/17 09:09 ; Admin Dose 100 MG; Start 03/02/17 at 09:00 Eye Lubricant 1 drop 1 drop Q4H PRN BOTH EYES ITCHING EYES Last administered on 03/14/17 16:27; Admin Dose 1 DROP; Start 03/01/17 at 15:30 Norepinephrine 16 mg/Dextrose 500 ml @ 0 mls/hr TITRATE IV Last administered on 03/04/17 18:28; Admin Dose 3.75 MLS/HR; Start 03/01/17 at 17:30 Propofol 100 ml @ 2.406 mls/ hr Q12H IV Last administered on 03/10/17 06:26 ; Admin Dose 14.436 MLS/HR; Start 03/01/17 at 19:30 Midazolam HCl (Versed) 50 ml @ 1 mls/hr TITRATE IV ; Start 03/01/17 at 19:30 Apixaban (Eliquis) 2.5 mg BID PO Last administered on 03/14/17 20:38; Admin Dose 2.5 MG; Start 03/04/17 at 21:00 Lansoprazole (Prevacid) 30 mg DAILY@06 GTB Last administered on 03/15/17 05: 23; Admin Dose 30 MG; Start 03/06/17 at 06:00 Miscellaneous Information (Pending [facility] Order For Wound Care) This patient moraes... PRN PRN XX WOUND CARE; Start 03/10/17 at 15:00 Hydrocortisone (Solu-Cortef) 25 mg BID IV Last administered on 03/14/17 20:38 ; Admin Dose 25 MG; Start 03/13/17 at 09:00 Assessment/Plan Chief Complaint/Hosp Course 1. Acute on-chronic hypoxemic, hypercapnic respiratory failure, status post intubation, now extubated but on BIPAP now 2. Sick sinus syndrome, status post permanent pacemaker. 3. Atrial fibrillation with a slow ventricular response, heart rate under control with the pacemaker. 4. Septic shock: BP has improved now and pt is off of levophed drip now 5. Pneumonia. 6. Anemia. 7. History of hepatitis C. 8. History of renal transplant. 9. Renal failure, status post hemodialysis. 10. NSVT:Currently stable after pacemaker RECOMMENDATIONS: Antibiotic is being managed as per Infectious Disease recommendations. off of Procardia due to hypotension. cont eliquis as long as no bleeding Antirejection medications as per Renal. Dialysis as per Renal. replace lytes prn cont resp care, O2. f/u pulm rec HD as per renal . O2 and BIPAP as needed. THANK YOU ROLAND DORSEY MD [facility] . Problems: ROLAND DORSEY MD Mar 15, 2017 09:52
--- NOTE | 2017-03-15 10:18 | PN ---
DATE: 03/15/2017 SUBJECTIVE: The patient is currently on BiPAP. Overnight, the patient was stable, no acute events. The patient has had poor p.o. intake. No other acute events noted. OBJECTIVE: VITAL SIGNS: Blood pressure 136/89, respirations 23, pulse 63, temperature 98.0. HEENT: Head is normocephalic. NECK: Supple. HEART: Regular rate. LUNGS: Show diminished breath sounds at base. ABDOMEN: Soft, nontender to palpation. No rebound or guarding. EXTREMITIES: Negative for clubbing, cyanosis. Trace edema. DERMATOLOGIC: No rashes. MUSCULOSKELETAL: No joint effusions. NEUROLOGIC: No change in exam. MEDICATIONS: The patient's medications have been reviewed. LABORATORY DATA: Shows sodium 138, potassium 4.0, chloride 100, BUN 35, creatinine 2.19, calcium 7. 9. White count 4.6, hemoglobin 9.4, crit of 31.3, platelet count is 148. ASSESSMENT AND PLAN: 1. Acute respiratory failure. The patient is status post extubation. Etiology secondary to pneumo dorie and congestive heart failure. The patient remains on BiPAP at night. Continue current medical management. Follow up with pulmonary. 2. Sepsis, status post shock secondary to pneumonia. The patient is currently off pressor support. Continue antibiotic regimen. Follow up with infectious disease. 3. 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 Etiology is secondary to a cute tubular necrosis. The patient is currently dialysis dependent. Continue intermittent dialysis . Monitor for any signs of recovery. 4. History of endstage renal disease, status post cadaveric renal transplant. The patient is curre ntly in acute kidney injury as stated above. Continue current treatment plan. Continue current imm unosuppressive regimen. 5. Arrhythmia, status post pacemaker. Continue to monitor. Follow up with cardiology. 6. Anemia. Monitor hemoglobin and hematocrit. 7. Metabolic disorder. Monitor calcium and phosphorus levels. 8. Acute encephalopathy. Etiology is toxic metabolic. Continue to monitor. 9. Nutrition. Continue to encourage p.o. intake. If patient has poor p.o. intake, may consider ar tificial nutrition. 10. History of hepatitis C. 11. History of gout. 12. Gastrointestinal and deep vein thrombosis prophylaxis. Dictated By: PATRIA CHANEY/BECKIE Conf#: [id number] DID#: [id number]
--- NOTE | 2017-03-15 11:04 | CONS ---
Date/Time of Note Date/Time of Note DATE: 03/15/17 TIME: 11:02 Consult Date/Type/Reason Admit Date/Time Mar 01, 2017 at 13:35 Initial Consult Date 03/01/17 Type of Consultation: Pulmonary Subjective Patient awake and alert still complaining of shortness of breath Objective Vital Signs Date Time Temp Pulse Resp B/P Pulse Ox O2 Delivery O2 Flow Rate FiO2 03/15/17 08:00 60 03/15/17 06:00 98.0 23 136/89 100 BIPAP 03/15/17 05:00 30 03/14/17 18:28 3.0 Intake and Output 03/14/17 03/14/17 03/15/17 15:00 23:00 07:00 Intake Total 400 ml 360 ml 240 ml Output Total 3300 ml Balance -2900 ml 360 ml 240 ml Exam GENERAL: Elderly appearing gentleman on nasal cannula O2. Comfortable at rest VITAL SIGNS: per chart NECK: Supple. No JVD or lymphadenopathy. CARDIAC EXAM: S1, S2. No added sounds or murmurs. CHEST: diminished air entry both lung bases ABDOMEN: Soft, nontender. No guarding or rebound. EXTREMITIES: No cyanosis, clubbing or edema. NEUROLOGIC: Generalized weakness. No focal deficits. Results/Medications Result Diagram: 03/15/17 0450 03/15/17 0450 Results 24 hrs Laboratory Tests Test 03/14/17 11:29 03/14/17 11:40 03/14/17 12:43 03/15/17 04:50 Bedside Glucose 61 L 72 98 White Blood Count 4.6 L Red Blood Count 3.31 L Hemoglobin 9.4 L Hematocrit 31.3 L Mean Corpuscular Volume 94.6 Mean Corpuscular Hemoglobin 28.4 L Mean Corpuscular Hemoglobin Concent 30.0 L Red Cell Distribution Width 15.4 H Platelet Count 148 Mean Platelet Volume 11.1 H Neutrophils % 66.5 Lymphocytes % 20.6 Monocytes % 11.4 H Eosinophils % 0.4 Basophils % 0.0 Nucleated Red Blood Cells % 0.0 Neutrophils # 3.0 Lymphocytes # 0.9 Monocytes # 0.5 Eosinophils # 0.0 Basophils # 0.0 Nucleated Red Blood Cells # 0.0 Sodium Level 138 Potassium Level 4.0 Chloride Level 100 Carbon Dioxide Level 27 Anion Gap 15 Blood Urea Nitrogen 35 H Creatinine 2.19 H Glucose Level 79 Calcium Level 7.9 L Phosphorus Level 4.5 Magnesium Level 1.9 Medications Current Medications Acetaminophen (Tylenol Tab) 500 mg Q6H PRN PO PAIN AND OR ELEVATED TEMP Last administered on 03/10/17 20:08; Admin Dose 500 MG; Start 03/01/17 at 13:30 Lidocaine (Lidocaine 5% Oint) 1 applic BID TOP Last administered on 03/14/17 20:39; Admin Dose 1 APPLIC; Start 03/01/17 at 21:00 Lidocaine (Lidoderm) 1 patch DAILY TD Last administered on 03/14/17 09:11; Admin Dose 1 PATCH; Start 03/02/17 at 09:00 Metolazone (Zaroxolyn) 2.5 mg DAILY PO Last administered on 03/14/17 09:09; Admin Dose 2.5 MG; Start 03/02/17 at 09:00 Oxycodone HCl (Roxicodone) 2.5 mg Q6H PRN PO PAIN Last administered on 21:12; Admin Dose 2.5 MG; Start 03/01/17 at 13:30 Prednisone (Prednisone) 5 mg DAILY PO Last administered on 03/14/17 09:09; Admin Dose 5 MG; Start 03/02/17 at 09:00 Eye Lubricant (Akwa Oint) 1 applic DAILY PRN RIGHT EYE ITCHING Last administered on 03/12/17 09:57; Admin Dose 1 APPLIC; Start 03/01/17 at 15:00 Bisacodyl (Dulcolax) 5 mg DAILY PRN PO CONSTIPATION Last administered on 12:30; Admin Dose 5 MG; Start 03/01/17 at 15:00 Cyclosporine (Sandimmune) 25 mg BID PO Last administered on 03/14/17 20:39; Admin Dose 25 MG; Start 03/01/17 at 21:00 Doxazosin Mesylate (Cardura) 2 mg QHS PO Last administered on 03/14/17 20:38 ; Admin Dose 2 MG; Start 03/01/17 at 21:00 Fluticasone Propionate (Flonase 0.05% Nasal) 1 spray BID NASAL Last administered on 03/14/17 20:38; Admin Dose 1 SPRAY; Start 03/01/17 at 21:00 Senna/Docusate Sodium (Senokot-S) 1 tab QHS PRN PO CONSTIPATION Last administered on 03/14/17 12:30; Admin Dose 1 TAB; Start 03/01/17 at 15:00 Thiamine HCl (Vitamin B1) 100 mg DAILY PO Last administered on 03/14/17 09:09 ; Admin Dose 100 MG; Start 03/02/17 at 09:00 Eye Lubricant 1 drop 1 drop Q4H PRN BOTH EYES ITCHING EYES Last administered on 03/14/17 16:27; Admin Dose 1 DROP; Start 03/01/17 at 15:30 Norepinephrine 16 mg/Dextrose 500 ml @ 0 mls/hr TITRATE IV Last administered on 03/04/17 18:28; Admin Dose 3.75 MLS/HR; Start 03/01/17 at 17:30 Propofol 100 ml @ 2.406 mls/ hr Q12H IV Last administered on 03/10/17 06:26 ; Admin Dose 14.436 MLS/HR; Start 03/01/17 at 19:30 Midazolam HCl (Versed) 50 ml @ 1 mls/hr TITRATE IV ; Start 03/01/17 at 19:30 Apixaban (Eliquis) 2.5 mg BID PO Last administered on 03/14/17 20:38; Admin Dose 2.5 MG; Start 03/04/17 at 21:00 Lansoprazole (Prevacid) 30 mg DAILY@06 GTB Last administered on 03/15/17 05: 23; Admin Dose 30 MG; Start 03/06/17 at 06:00 Miscellaneous Information [facility] This patient moraes... PRN PRN XX WOUND CARE; Start 03/10/17 at 15:00 Hydrocortisone (Solu-Cortef) 25 mg BID IV Last administered on 03/14/17 20:38 ; Admin Dose 25 MG; Start 03/13/17 at 09:00 Assessment/Plan Chief Complaint/Hosp Course Assessment 1. Patient admitted with bilateral pneumonia hypoxemic respiratory failure. Status post extubation 2. Chronic immunosuppression owing to history of renal transplant, however patient has renal failure and requiring hemodialysis on a regular basis. 3. Generalized deconditioning. 4. Thrombocytopenia. 5. Anemia. 6. end-stage renal failure on hemodialysis, history of renal transplant with immunosuppressive medication 7. History of recent pacemaker placement. Plan. 1. Continue supplemental O2 2. Continue bronchodilators 3. Hemodialysis with volume removal as tolerated 4. Differential does include opportunistic organism such as aspergillosis CMV will discuss with infectious diseases Continue ICU care for now. Problems: LIT COTA MD, [facility] [place] Mar 15, 2017 11:04
--- NOTE | 2017-03-15 13:03 | CONS ---
Date/Time of Note Date/Time of Note DATE: 03/15/17 TIME: 13:00 Consult Date/Type/Reason Admit Date/Time Mar 01, 2017 at 13:35 Initial Consult Date 03/01/17 Type of Consultation: ID Objective Vital Signs Date Time Temp Pulse Resp B/P Pulse Ox O2 Delivery O2 Flow Rate FiO2 03/15/17 11:15 63 26 100 03/15/17 11:00 98.0 103/67 03/15/17 09:00 30 03/15/17 08:00 Nasal Cannula 3.0 Intake and Output 03/14/17 03/14/17 03/15/17 15:00 23:00 07:00 Intake Total 400 ml 360 ml 240 ml Output Total 3300 ml Balance -2900 ml 360 ml 240 ml Results/Medications Result Diagram: 03/15/17 0450 03/15/17 0450 Results 24 hrs Laboratory Tests Test 03/15/17 04:50 White Blood Count 4.6 L Red Blood Count 3.31 L Hemoglobin 9.4 L Hematocrit 31.3 L Mean Corpuscular Volume 94.6 Mean Corpuscular Hemoglobin 28.4 L Mean Corpuscular Hemoglobin Concent 30.0 L Red Cell Distribution Width 15.4 H Platelet Count 148 Mean Platelet Volume 11.1 H Neutrophils % 66.5 Lymphocytes % 20.6 Monocytes % 11.4 H Eosinophils % 0.4 Basophils % 0.0 Nucleated Red Blood Cells % 0.0 Neutrophils # 3.0 Lymphocytes # 0.9 Monocytes # 0.5 Eosinophils # 0.0 Basophils # 0.0 Nucleated Red Blood Cells # 0.0 Sodium Level 138 Potassium Level 4.0 Chloride Level 100 Carbon Dioxide Level 27 Anion Gap 15 Blood Urea Nitrogen 35 H Creatinine 2.19 H Glucose Level 79 Calcium Level 7.9 L Phosphorus Level 4.5 Magnesium Level 1.9 Medications Current Medications Acetaminophen (Tylenol Tab) 500 mg Q6H PRN PO PAIN AND OR ELEVATED TEMP Last administered on 03/10/17 20:08; Admin Dose 500 MG; Start 03/01/17 at 13:30 Lidocaine (Lidocaine 5% Oint) 1 applic BID TOP Last administered on 03/15/17 09:18; Admin Dose 1 APPLIC; Start 03/01/17 at 21:00 Lidocaine (Lidoderm) 1 patch DAILY TD Last administered on 03/15/17 09:24; Admin Dose 1 PATCH; Start 03/02/17 at 09:00 Metolazone (Zaroxolyn) 2.5 mg DAILY PO Last administered on 03/15/17 09:25; Admin Dose 2.5 MG; Start 03/02/17 at 09:00 Oxycodone HCl (Roxicodone) 2.5 mg Q6H PRN PO PAIN Last administered on 21:12; Admin Dose 2.5 MG; Start 03/01/17 at 13:30 Prednisone (Prednisone) 5 mg DAILY PO Last administered on 03/15/17 09:25; Admin Dose 5 MG; Start 03/02/17 at 09:00 Eye Lubricant (Akwa Oint) 1 applic DAILY PRN RIGHT EYE ITCHING Last administered on 03/12/17 09:57; Admin Dose 1 APPLIC; Start 03/01/17 at 15:00 Bisacodyl (Dulcolax) 5 mg DAILY PRN PO CONSTIPATION Last administered on 12:30; Admin Dose 5 MG; Start 03/01/17 at 15:00 Cyclosporine (Sandimmune) 25 mg BID PO Last administered on 03/15/17 09:24; Admin Dose 25 MG; Start 03/01/17 at 21:00 Doxazosin Mesylate (Cardura) 2 mg QHS PO Last administered on 03/14/17 20:38 ; Admin Dose 2 MG; Start 03/01/17 at 21:00 Fluticasone Propionate (Flonase 0.05% Nasal) 1 spray BID NASAL Last administered on 03/15/17 09:19; Admin Dose 1 SPRAY; Start 03/01/17 at 21:00 Senna/Docusate Sodium (Senokot-S) 1 tab QHS PRN PO CONSTIPATION Last administered on 03/14/17 12:30; Admin Dose 1 TAB; Start 03/01/17 at 15:00 Thiamine HCl (Vitamin B1) 100 mg DAILY PO Last administered on 03/15/17 09:24 ; Admin Dose 100 MG; Start 03/02/17 at 09:00 Eye Lubricant 1 drop 1 drop Q4H PRN BOTH EYES ITCHING EYES Last administered on 03/14/17 16:27; Admin Dose 1 DROP; Start 03/01/17 at 15:30 Norepinephrine 16 mg/Dextrose 500 ml @ 0 mls/hr TITRATE IV Last administered on 03/04/17 18:28; Admin Dose 3.75 MLS/HR; Start 03/01/17 at 17:30 Propofol 100 ml @ 2.406 mls/ hr Q12H IV Last administered on 03/10/17 06:26 ; Admin Dose 14.436 MLS/HR; Start 03/01/17 at 19:30 Midazolam HCl (Versed) 50 ml @ 1 mls/hr TITRATE IV ; Start 03/01/17 at 19:30 Apixaban (Eliquis) 2.5 mg BID PO Last administered on 03/15/17 09:24; Admin Dose 2.5 MG; Start 03/04/17 at 21:00 Lansoprazole (Prevacid) 30 mg DAILY@06 GTB Last administered on 03/15/17 05: 23; Admin Dose 30 MG; Start 03/06/17 at 06:00 Miscellaneous Information (Pending [facility] Order For Wound Care) This patient moraes... PRN PRN XX WOUND CARE; Start 03/10/17 at 15:00 Hydrocortisone (Solu-Cortef) 25 mg BID IV Last administered on 03/15/17 09:19 ; Admin Dose 25 MG; Start 03/13/17 at 09:00 Assessment/Plan Chief Complaint/Hosp Course SUBJECTIVE: Alert, comfortable on Bipap, no fevers INDWELLINGS: femoral triple lumen catheter, right chest Perm-A-Cath. PHYSICAL EXAMINATION: GENERAL: Well-developed, fragile, elderly man who is awake, in no distress. HEENT: Head atraumatic, normocephalic. Sclerae anicteric. Buccal mucosa dry. NECK: Supple. CHEST: Rise symmetrical. Breath sounds diminished to bases. HEART: S1, S2. ABDOMEN: Soft. Bowel tones present. ASSESSMENT: 1. Status post septic shock, pneumonia 2. Status post urinary tract infection. 3. End-stage renal disease, hemodialysis dependent. 4. History of kidney transplant. 5. Sick sinus syndrome, status post permanent pacemaker placed on 02/27/2017. 6. Acute on chronic resp failure PLAN: Stable off antibiotics. Continue present care, anti-aspiration measures , bipap per pulmonary. Problems: MYLA CHIU NP Mar 15, 2017 13:03
[2017-03-15] MEDS: DOXAZOSIN 2 MG TAB PO SCH (20:15)
[2017-03-16] VITALS (24 sets, daily range): BP systolic 116–154; BP diastolic 50–91; PULSE 60–71; RESP 16–20
[2017-03-16] MEDS: LANSOPRAZOLE 30 MG CAP GTB SCH (05:12)
[2017-03-16] MEDS: LIDOCAINE 5% 35 GM OINT TOP SCH ×2 (09:00→20:50)
--- NOTE | 2017-03-16 09:31 | PN ---
DATE: 03/16/2017 SUBJECTIVE: The patient was transferred from intensive care unit to telemetry. No other events not ed overnight. The patient is currently on nasal cannula this morning. OBJECTIVE: VITAL SIGNS: Blood pressure is 133/60, temperature 98.3, pulse 60, respiration 18. HEENT: Head is normocephalic. NECK: Supple. HEART: Regular rate. LUNGS: Show diminished breath sounds at base. ABDOMEN: Soft, nontender to palpation. No rebound or guarding. EXTREMITIES: Negative for clubbing, cyanosis, no edema. DERMATOLOGIC: No rashes. MUSCULOSKELETAL: No joint effusions. NEUROLOGIC: No change in exam. MEDICATIONS: The patient's medications have been reviewed. LABORATORY DATA: Shows white count 4.8, hemoglobin 8.8, hematocrit 29.6, platelet count is 144. So dium 136, potassium 4.0, BUN 51, creatinine 3.02, phosphorus 5.3. ASSESSMENT AND PLAN: 1. Acute respiratory failure. The patient is status post extubation. Currently on BiPAP at night. Continue current medical management. Follow up with pulmonary. 2. Sepsis, status post shock. Etiology secondary to pneumonia. Continue current antibiotic regime n and follow up with infectious disease. 3. 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 Etiology secondary to acut e tubular necrosis. The patient is currently dialysis dependent. Continue intermittent dialysis. Monitor for signs of recovery. 4. History of end-stage renal disease status post cadaveric renal transplant. The patient is curre ntly in acute kidney injury as stated above. Continue current treatment plan. Continue current imm unosuppressive regimen. 5. Sinus arrhythmia, status post pacemaker. Continue to monitor. Follow up with cardiology. 6. Anemia. Monitor hemoglobin and hematocrit levels. 7. Mineral bone disorder, monitor calcium and phosphorus levels. 8. Acute encephalopathy, etiology is toxic metabolic. Continue to monitor. 9. Nutrition. Continue to encourage p.o. intake. 10. History of hepatitis C. 11. History of gout. 12. Gastrointestinal and deep vein thrombosis prophylaxis. Dictated By: PATRIA CHANEY/BECKIE Conf#: [id number] DID#: [id number]
[2017-03-16] MEDS: APIXABAN 5 MG TABLET PO SCH ×2 (10:17→20:48)
[2017-03-16] MEDS: predniSONE 5 MG TAB PO SCH (10:17)
[2017-03-16] MEDS: HYDROCORTISONE 100 MG INJ IV SCH ×2 (10:17→20:48)
[2017-03-16] MEDS: CYCLOSPORINE 25 MG CAP PO SCH ×2 (10:18→20:50)
[2017-03-16] MEDS: THIAMINE 100 MG TAB PO SCH (10:19)
--- NOTE | 2017-03-16 10:19 | RADRPT ---
PROCEDURE: XR Chest. CLINICAL INDICATION: Shortness of breath. TECHNIQUE: Single frontal view. COMPARISON: 03/12/2017. FINDINGS: The endotracheal tube and nasogastric tube have been removed. The tunneled right internal jugular ve in dialysis catheter and left sided permanent pacemaker remain in satisfactory position. There is ri ght basilar atelectasis or pneumonia, worse than seen previously. Left basilar air space disease is unchanged. The heart is enlarged. There is calcification in the aorta consistent with atherosclerosis. There is no pleural effusion or pneumothorax. There are severe degenerative changes of both glenohumeral joints with marked deformity. IMPRESSION: 1. Endotracheal tube and nasogastric tube removed. 2. Worse appearance of the right lung base. 3. No other change from 03/12/2017. RPTAT: QQ .Pa Arroyo MD, MD Date Time Electronically viewed and signed by .Pa Arroyo MD, MD on 03/16/2017 10:18 .R/
[2017-03-16] MEDS: LIDOCAINE 5% PATCH TD SCH (10:23)
[2017-03-16] MEDS: FLUTICASONE 0.05% 16 GM NAS SPRAY NASAL SCH ×2 (10:24→20:50)
[2017-03-16] MEDS: BALSAM PERU/CASTOR OIL 60 GM TUBE TOP SCH (10:25)
[2017-03-16] MEDS: METOLAZONE 2.5 MG TAB PO SCH (10:38)
[2017-03-16] MEDS: ARTIFICIAL TEARS 15 ML OPH BOTH EYES PRN (10:40)
--- NOTE | 2017-03-16 11:55 | CONS ---
Date/Time of Note Date/Time of Note DATE: 03/16/17 TIME: 11:53 Assessment/Plan Assessment/Plan Additional Assessment/Plan Chest x-ray was reviewed from today which is again showing infiltrative changes more pronounced right lower lobe. Assessment and recommendations; 1. Patient admitted with severe pneumonia status post extubation now with marked clinical improvement. 2. History of recent pacemaker placement. 3. Anemia and thrombocytopenia. 4. History of renal transplant, patient on chronic immunosuppression however now requiring hemodialysis. 5. Right lower lobe changes on chest x-ray possibly indicative of some element of underlying pulmonary fibrosis. Continue current supportive care. Consultation Date/Type/Reason Admit Date/Time Mar 01, 2017 at 13:35 Initial Consult Date 03/01/17 Type of Consultation: Pulmonary 24 HR Interval Summary Free Text/Dictation Patient's condition is markedly improved. He is completely awake alert. Denies any shortness of breath. General exam; elderly male, awake and alert. Currently in no distress. Exam/Review of Systems Vital Signs Vitals Vital Signs Date Time Temp Pulse Resp B/P Pulse Ox O2 Delivery O2 Flow Rate FiO2 03/16/17 11:13 97.8 77 16 128/72 96 03/16/17 08:46 3.0 03/16/17 05:39 30 03/16/17 00:00 Nasal Cannula Intake and Output 03/15/17 03/15/17 03/16/17 15:00 23:00 07:00 Intake Total 500 ml 300 ml 0 ml Output Total 0 ml 20 ml 0 ml Balance 500 ml 280 ml 0 ml Exam HEENT exam; supple neck, no JVD. No lymphadenopathy. Midline trachea. No thyromegaly. Patient has multiple carious teeth. Bilateral eyelid surgical changes are present. Chest exam; scattered crackles bilaterally. S1-S2 audible, irregular rhythm. Pacemaker in left chest wall. Next Abdomen exam; soft, no organomegaly. Nontender. Bowel sounds audible. Extremity exam; no peripheral edema. Patient has a multiple ecchymosis involving all 4 extremities. ASSET LIABILITY ANALYST exam; no focal deficit. Results Result Diagram: 03/16/17 0532 03/16/17 0532 Results 24 hrs Laboratory Tests Test 03/16/17 05:32 White Blood Count 4.8 Red Blood Count 3.18 L Hemoglobin 8.8 L Hematocrit 29.6 L Mean Corpuscular Volume 93.1 Mean Corpuscular Hemoglobin 27.7 L Mean Corpuscular Hemoglobin Concent 29.7 L Red Cell Distribution Width 15.4 H Platelet Count 144 Mean Platelet Volume 10.6 H Neutrophils % 57.0 Lymphocytes % 26.6 Monocytes % 14.6 H Eosinophils % 0.8 Basophils % 0.0 Nucleated Red Blood Cells % 0.0 Neutrophils # 2.7 Lymphocytes # 1.3 Monocytes # 0.7 Eosinophils # 0.0 Basophils # 0.0 Nucleated Red Blood Cells # 0.0 Sodium Level 137 Potassium Level 4.0 Chloride Level 100 Carbon Dioxide Level 29 Anion Gap 12 Blood Urea Nitrogen 51 H Creatinine 3.02 H Glucose Level 80 Calcium Level 8.1 L Phosphorus Level 5.3 H Magnesium Level 1.9 Medications Medications Current Medications Acetaminophen (Tylenol Tab) 500 mg Q6H PRN PO PAIN AND OR ELEVATED TEMP Last administered on 03/10/17 20:08; Admin Dose 500 MG; Start 03/01/17 at 13:30 Lidocaine (Lidocaine 5% Oint) 1 applic BID TOP Last administered on 03/15/17 20:15; Admin Dose 1 APPLIC; Start 03/01/17 at 21:00 Lidocaine (Lidoderm) 1 patch DAILY TD Last administered on 03/16/17 10:23; Admin Dose 1 PATCH; Start 03/02/17 at 09:00 Metolazone (Zaroxolyn) 2.5 mg DAILY PO Last administered on 03/16/17 10:38; Admin Dose 2.5 MG; Start 03/02/17 at 09:00 Oxycodone HCl (Roxicodone) 2.5 mg Q6H PRN PO PAIN Last administered on 21:12; Admin Dose 2.5 MG; Start 03/01/17 at 13:30 Prednisone (Prednisone) 5 mg DAILY PO Last administered on 03/16/17 10:17; Admin Dose 5 MG; Start 03/02/17 at 09:00 Eye Lubricant (Akwa Oint) 1 applic DAILY PRN RIGHT EYE ITCHING Last administered on 03/12/17 09:57; Admin Dose 1 APPLIC; Start 03/01/17 at 15:00 Bisacodyl (Dulcolax) 5 mg DAILY PRN PO CONSTIPATION Last administered on 12:30; Admin Dose 5 MG; Start 03/01/17 at 15:00 Cyclosporine (Sandimmune) 25 mg BID PO Last administered on 03/16/17 10:18; Admin Dose 25 MG; Start 03/01/17 at 21:00 Doxazosin Mesylate (Cardura) 2 mg QHS PO Last administered on 03/15/17 20:15 ; Admin Dose 2 MG; Start 03/01/17 at 21:00 Fluticasone Propionate (Flonase 0.05% Nasal) 1 spray BID NASAL Last administered on 03/16/17 10:24; Admin Dose 1 SPRAY; Start 03/01/17 at 21:00 Senna/Docusate Sodium (Senokot-S) 1 tab QHS PRN PO CONSTIPATION Last administered on 03/14/17 12:30; Admin Dose 1 TAB; Start 03/01/17 at 15:00 Thiamine HCl (Vitamin B1) 100 mg DAILY PO Last administered on 03/16/17 10:19 ; Admin Dose 100 MG; Start 03/02/17 at 09:00 Eye Lubricant (Artificial Tears Oph) 1 drop Q4H PRN BOTH EYES ITCHING EYES Last administered on 03/16/17 10:40; Admin Dose 1 DROP; Start 03/01/17 at 15: 30 Apixaban (Eliquis) 2.5 mg BID PO Last administered on 03/16/17 10:17; Admin Dose 2.5 MG; Start 03/04/17 at 21:00 Lansoprazole (Prevacid) 30 mg DAILY@06 GTB Last administered on 03/16/17 05: 12; Admin Dose 30 MG; Start 03/06/17 at 06:00 Miscellaneous Information (Pending [facility]yl Order For Wound Care) This patient moraes... PRN PRN XX WOUND CARE; Start 03/10/17 at 15:00 Hydrocortisone (Solu-Cortef) 25 mg BID IV Last administered on 03/16/17 10:17 ; Admin Dose 25 MG; Start 03/13/17 at 09:00 PAOLA RUIZ Mar 16, 2017 11:55
[2017-03-16] MEDS ORDERED: VANCOMYCIN IV PER PHARMACY XX SCH (13:00)
--- NOTE | 2017-03-16 14:15 | CONS ---
Date/Time of Note Date/Time of Note DATE: 03/16/17 TIME: 14:14 Consult Date/Type/Reason Admit Date/Time Mar 01, 2017 at 13:35 Initial Consult Date 03/01/17 Type of Consultation: cardiology Subjective CARDIOLOGY FOLLOW UP NOTE: S: d/w and multiple questions were answered. Discussed with staff and rhythm strip is reviewed. Patient remains in demand ventricular pacemaker. Patient remains extubated and BP remains stable off of pressors. but pt intermittently with increasing resp distress . he is breathing better today he denies any cp or pressure to me. no active bleeding is reported O: General: thin man, ON BIPAP. HEENT: NC/AT. . NECK: . no stridor. CV: RRR. systolic murmur; no gallop or rubs. chest: s/p left sided PPM, no hematoma or bleeding PULM: no wheezing + diffuse rhonchi. GI: SOFT, NT, ND, no rebound or guarding Extremity:mild LE edema. no clubbing. neuro: awake and alert. responds appropriately . Psych: calm and pleasant rectal: deferred : normal male Objective Vital Signs Date Time Temp Pulse Resp B/P Pulse Ox O2 Delivery O2 Flow Rate FiO2 03/16/17 13:00 62 03/16/17 11:13 97.8 16 128/72 96 03/16/17 08:46 3.0 03/16/17 05:39 30 03/16/17 00:00 Nasal Cannula Intake and Output 03/15/17 03/15/17 03/16/17 15:00 23:00 07:00 Intake Total 500 ml 300 ml 0 ml Output Total 0 ml 20 ml 0 ml Balance 500 ml 280 ml 0 ml Results/Medications Result Diagram: 03/16/17 0532 03/16/17 0532 Results 24 hrs Laboratory Tests Test 03/16/17 05:32 White Blood Count 4.8 Red Blood Count 3.18 L Hemoglobin 8.8 L Hematocrit 29.6 L Mean Corpuscular Volume 93.1 Mean Corpuscular Hemoglobin 27.7 L Mean Corpuscular Hemoglobin Concent 29.7 L Red Cell Distribution Width 15.4 H Platelet Count 144 Mean Platelet Volume 10.6 H Neutrophils % 57.0 Lymphocytes % 26.6 Monocytes % 14.6 H Eosinophils % 0.8 Basophils % 0.0 Nucleated Red Blood Cells % 0.0 Neutrophils # 2.7 Lymphocytes # 1.3 Monocytes # 0.7 Eosinophils # 0.0 Basophils # 0.0 Nucleated Red Blood Cells # 0.0 Sodium Level 137 Potassium Level 4.0 Chloride Level 100 Carbon Dioxide Level 29 Anion Gap 12 Blood Urea Nitrogen 51 H Creatinine 3.02 H Glucose Level 80 Calcium Level 8.1 L Phosphorus Level 5.3 H Magnesium Level 1.9 Medications Current Medications Acetaminophen (Tylenol Tab) 500 mg Q6H PRN PO PAIN AND OR ELEVATED TEMP Last administered on 03/10/17 20:08; Admin Dose 500 MG; Start 03/01/17 at 13:30 Lidocaine (Lidocaine 5% Oint) 1 applic BID TOP Last administered on 03/15/17 20:15; Admin Dose 1 APPLIC; Start 03/01/17 at 21:00 Lidocaine (Lidoderm) 1 patch DAILY TD Last administered on 03/16/17 10:23; Admin Dose 1 PATCH; Start 03/02/17 at 09:00 Metolazone (Zaroxolyn) 2.5 mg DAILY PO Last administered on 03/16/17 10:38; Admin Dose 2.5 MG; Start 03/02/17 at 09:00 Oxycodone HCl (Roxicodone) 2.5 mg Q6H PRN PO PAIN Last administered on 21:12; Admin Dose 2.5 MG; Start 03/01/17 at 13:30 Prednisone (Prednisone) 5 mg DAILY PO Last administered on 03/16/17 10:17; Admin Dose 5 MG; Start 03/02/17 at 09:00 Eye Lubricant (Akwa Oint) 1 applic DAILY PRN RIGHT EYE ITCHING Last administered on 03/12/17 09:57; Admin Dose 1 APPLIC; Start 03/01/17 at 15:00 Bisacodyl (Dulcolax) 5 mg DAILY PRN PO CONSTIPATION Last administered on 12:30; Admin Dose 5 MG; Start 03/01/17 at 15:00 Cyclosporine (Sandimmune) 25 mg BID PO Last administered on 03/16/17 10:18; Admin Dose 25 MG; Start 03/01/17 at 21:00 Doxazosin Mesylate (Cardura) 2 mg QHS PO Last administered on 03/15/17 20:15 ; Admin Dose 2 MG; Start 03/01/17 at 21:00 Fluticasone Propionate (Flonase 0.05% Nasal) 1 spray BID NASAL Last administered on 03/16/17 10:24; Admin Dose 1 SPRAY; Start 03/01/17 at 21:00 Senna/Docusate Sodium (Senokot-S) 1 tab QHS PRN PO CONSTIPATION Last administered on 03/14/17 12:30; Admin Dose 1 TAB; Start 03/01/17 at 15:00 Thiamine HCl (Vitamin B1) 100 mg DAILY PO Last administered on 03/16/17 10:19 ; Admin Dose 100 MG; Start 03/02/17 at 09:00 Eye Lubricant (Artificial Tears Oph) 1 drop Q4H PRN BOTH EYES ITCHING EYES Last administered on 03/16/17 10:40; Admin Dose 1 DROP; Start 03/01/17 at 15: 30 Apixaban (Eliquis) 2.5 mg BID PO Last administered on 03/16/17 10:17; Admin Dose 2.5 MG; Start 03/04/17 at 21:00 Lansoprazole (Prevacid) 30 mg DAILY@06 GTB Last administered on 03/16/17 05: 12; Admin Dose 30 MG; Start 03/06/17 at 06:00 Miscellaneous Information (Pending [facility] Order For Wound Care) This patient moraes... PRN PRN XX WOUND CARE; Start 03/10/17 at 15:00 Hydrocortisone 25 mg 25 mg BID IV Last administered on 03/16/17 10:17; Admin Dose 25 MG; Start 03/13/17 at 09:00 Cefepime HCl 50 ml @ 100 mls/hr Q24H IVPB ; Start 03/16/17 at 14:00 Vancomycin HCl (Vancocin) 250 ml @ 125 mls/hr Q96H IVPB ; Start 03/17/17 at 22 :00 Assessment/Plan Chief Complaint/Hosp Course 1. Acute on-chronic hypoxemic, hypercapnic respiratory failure, status post intubation, now extubated but on BIPAP now 2. Sick sinus syndrome, status post permanent pacemaker. 3. Atrial fibrillation with a slow ventricular response, heart rate under control with the pacemaker. 4. Septic shock: BP has improved now and pt is off of levophed drip now 5. Pneumonia. 6. Anemia. 7. History of hepatitis C. 8. History of renal transplant. 9. Renal failure, status post hemodialysis. 10. NSVT:Currently stable after pacemaker RECOMMENDATIONS: Antibiotic is being managed as per Infectious Disease recommendations. off of Procardia due to hypotension. cont eliquis as long as no bleeding Antirejection medications as per Renal. Dialysis as per Renal. replace lytes prn cont resp care, O2. f/u pulm rec cont HD to be adjusted per renal . O2 and BIPAP as needed. THANK YOU ROLAND DORSEY MD [facility] . Problems: ROLAND DORSEY MD Mar 16, 2017 14:15
[2017-03-16] MEDS: CEFEPIME 1GM/50 ML (PMX) 50 ML IVPB SCH (15:43)
[2017-03-16] MEDS: BISACODYL (EC) 5 MG TAB PO PRN (15:48)
[2017-03-16] MEDS: oxyCODONE 5 MG TAB PO PRN (19:59)
[2017-03-16] MEDS: DOXAZOSIN 2 MG TAB PO SCH (20:49)
[2017-03-17] VITALS (13 sets, daily range): BP systolic 142–153; BP diastolic 80–90; PULSE 60–75; RESP 17–18
[2017-03-17] MEDS: LANSOPRAZOLE 30 MG CAP GTB SCH (05:28)
[2017-03-17] MEDS: LIDOCAINE 5% 35 GM OINT TOP SCH ×2 (08:55→20:51)
[2017-03-17] MEDS: FLUTICASONE 0.05% 16 GM NAS SPRAY NASAL SCH ×2 (08:55→20:49)
[2017-03-17] MEDS: HYDROCORTISONE 100 MG INJ IV SCH ×2 (08:55→20:46)
[2017-03-17] MEDS: LIDOCAINE 5% PATCH TD SCH (08:56)
[2017-03-17] MEDS: APIXABAN 5 MG TABLET PO SCH ×2 (08:56→20:47)
[2017-03-17] MEDS: predniSONE 5 MG TAB PO SCH (08:57)
[2017-03-17] MEDS: METOLAZONE 2.5 MG TAB PO SCH (08:57)
[2017-03-17] MEDS: BALSAM PERU/CASTOR OIL 60 GM TUBE TOP SCH (08:57)
[2017-03-17] MEDS: CYCLOSPORINE 25 MG CAP PO SCH ×2 (08:57→20:46)
[2017-03-17] MEDS: THIAMINE 100 MG TAB PO SCH (08:57)
[2017-03-17] MEDS: ACETAMINOPHEN 500 MG TAB PO PRN (12:23)
--- NOTE | 2017-03-17 13:41 | CONS ---
Date/Time of Note Date/Time of Note DATE: 03/17/17 TIME: 13:39 Consult Date/Type/Reason Admit Date/Time Mar 01, 2017 at 13:35 Initial Consult Date 03/01/17 Type of Consultation: ID Objective Vital Signs Date Time Temp Pulse Resp B/P Pulse Ox O2 Delivery O2 Flow Rate FiO2 03/17/17 12:10 60 03/17/17 12:00 3.0 32 03/17/17 11:28 98.2 18 142/85 100 03/17/17 11:03 Nasal Cannula Intake and Output 03/16/17 03/16/17 03/17/17 14:59 22:59 06:59 Intake Total 300 ml 350 ml 400 ml Output Total 3300 ml 2 ml 1 ml Balance -3000 ml 348 ml 399 ml Results/Medications Result Diagram: 03/17/1762403/17/1725 Results 24 hrs Laboratory Tests Test 03/17/17 06:25 White Blood Count 4.3 L Red Blood Count 3.28 L Hemoglobin 9.3 L Hematocrit 30.6 L Mean Corpuscular Volume 93.3 Mean Corpuscular Hemoglobin 28.4 L Mean Corpuscular Hemoglobin Concent 30.4 L Red Cell Distribution Width 15.2 H Platelet Count 131 L Mean Platelet Volume 10.5 H Neutrophils % 72.7 Lymphocytes % 16.0 Monocytes % 9.9 Eosinophils % 0.0 Basophils % 0.0 Nucleated Red Blood Cells % 0.0 Neutrophils # 3.1 Lymphocytes # 0.7 L Monocytes # 0.4 Eosinophils # 0.0 Basophils # 0.0 Nucleated Red Blood Cells # 0.0 Sodium Level 137 Potassium Level 4.1 Chloride Level 100 Carbon Dioxide Level 29 Anion Gap 12 Blood Urea Nitrogen 38 #H Creatinine 2.54 H Glucose Level 118 Calcium Level 8.2 L Phosphorus Level 5.2 H Magnesium Level 1.8 Medications Current Medications Acetaminophen (Tylenol Tab) 500 mg Q6H PRN PO PAIN AND OR ELEVATED TEMP Last administered on 03/17/17 12:23; Admin Dose 500 MG; Start 03/01/17 at 13:30 Lidocaine (Lidocaine 5% Oint) 1 applic BID TOP Last administered on 03/17/17 08:55; Admin Dose 1 APPLIC; Start 03/01/17 at 21:00 Lidocaine (Lidoderm) 1 patch DAILY TD Last administered on 03/17/17 08:56; Admin Dose 1 PATCH; Start 03/02/17 at 09:00 Metolazone (Zaroxolyn) 2.5 mg DAILY PO Last administered on 03/17/17 08:57; Admin Dose 2.5 MG; Start 03/02/17 at 09:00 Oxycodone HCl (Roxicodone) 2.5 mg Q6H PRN PO PAIN Last administered on 19:59; Admin Dose 2.5 MG; Start 03/01/17 at 13:30 Prednisone (Prednisone) 5 mg DAILY PO Last administered on 03/17/17 08:57; Admin Dose 5 MG; Start 03/02/17 at 09:00 Eye Lubricant (Akwa Oint) 1 applic DAILY PRN RIGHT EYE ITCHING Last administered on 03/12/17 09:57; Admin Dose 1 APPLIC; Start 03/01/17 at 15:00 Bisacodyl (Dulcolax) 5 mg DAILY PRN PO CONSTIPATION Last administered on 15:48; Admin Dose 5 MG; Start 03/01/17 at 15:00 Cyclosporine (Sandimmune) 25 mg BID PO Last administered on 03/17/17 08:57; Admin Dose 25 MG; Start 03/01/17 at 21:00 Doxazosin Mesylate (Cardura) 2 mg QHS PO Last administered on 03/16/17 20:49 ; Admin Dose 2 MG; Start 03/01/17 at 21:00 Fluticasone Propionate (Flonase 0.05% Nasal) 1 spray BID NASAL Last administered on 03/17/17 08:55; Admin Dose 1 SPRAY; Start 03/01/17 at 21:00 Senna/Docusate Sodium (Senokot-S) 1 tab QHS PRN PO CONSTIPATION Last administered on 03/14/17 12:30; Admin Dose 1 TAB; Start 03/01/17 at 15:00 Thiamine HCl (Vitamin B1) 100 mg DAILY PO Last administered on 03/17/17 08:57 ; Admin Dose 100 MG; Start 03/02/17 at 09:00 Eye Lubricant (Artificial Tears Oph) 1 drop Q4H PRN BOTH EYES ITCHING EYES Last administered on 03/16/17 10:40; Admin Dose 1 DROP; Start 03/01/17 at 15: 30 Apixaban (Eliquis) 2.5 mg BID PO Last administered on 03/17/17 08:56; Admin Dose 2.5 MG; Start 03/04/17 at 21:00 Lansoprazole (Prevacid) 30 mg DAILY@06 GTB Last administered on 03/17/17 05: 28; Admin Dose 30 MG; Start 03/06/17 at 06:00 Miscellaneous Information (Pending [facility] Order For Wound Care) This patient moraes... PRN PRN XX WOUND CARE; Start 03/10/17 at 15:00 Hydrocortisone 25 mg 25 mg BID IV Last administered on 03/17/17 08:55; Admin Dose 25 MG; Start 03/13/17 at 09:00 Cefepime HCl 50 ml @ 100 mls/hr Q24H IVPB Last administered on 03/16/17 15: 43; Admin Dose 100 MLS/HR; Start 03/16/17 at 14:00 Vancomycin HCl (Vancocin) 250 ml @ 125 mls/hr Q96H IVPB ; Start 03/17/17 at 22 :00 Assessment/Plan Chief Complaint/Hosp Course SUBJECTIVE: Alert, feels good, comfortable on room air INDWELLINGS: femoral triple lumen catheter, right chest Perm-A-Cath. Antimicrobials: Vancomycin, cefepime PHYSICAL EXAMINATION: GENERAL: Well-developed, fragile, elderly man who is awake, in no distress. HEENT: Head atraumatic, normocephalic. Sclerae anicteric. Buccal mucosa dry. NECK: Supple. CHEST: Rise symmetrical. Breath sounds diminished to bases. HEART: S1, S2. ABDOMEN: Soft. Bowel tones present. ASSESSMENT: 1. Status post septic shock/ pneumonia 2. Status post urinary tract infection. 3. End-stage renal disease, hemodialysis dependent. 4. History of kidney transplant. 5. Sick sinus syndrome, status post permanent pacemaker placed on 02/27/2017. 6. Acute on chronic resp failure PLAN: Remains stable, restarted on antibiotics yesterday for worsening chest x- ray. Continue present care, anti-aspiration measures, pulmonary rec-s, f/u cxr. DW patient Problems: MYLA CHIU NP Mar 17, 2017 13:41
[2017-03-17] MEDS: CEFEPIME 1GM/50 ML (PMX) 50 ML IVPB SCH (14:00)
--- NOTE | 2017-03-17 17:27 | CONS ---
Date/Time of Note Date/Time of Note DATE: 03/17/17 TIME: 17:25 Consult Date/Type/Reason Admit Date/Time Mar 01, 2017 at 13:35 Initial Consult Date 03/01/17 Type of Consultation: Pulm Subjective No overnight events. Objective Vital Signs Date Time Temp Pulse Resp B/P Pulse Ox O2 Delivery O2 Flow Rate FiO2 03/17/17 16:12 60 03/17/17 16:09 Nasal Cannula 3.0 03/17/17 15:26 98.2 17 153/89 96 03/17/17 12:00 32 Intake and Output 03/16/17 03/16/17 03/17/17 15:00 23:00 07:00 Intake Total 300 ml 350 ml 400 ml Output Total 3300 ml 2 ml 1 ml Balance -3000 ml 348 ml 399 ml Exam HEENT: Neck supple; no JVD; no LAD CVS: RRR, S1 and S2 CHEST: Clear ABD: Soft, NT, + BS EXT: No c/c/e Results/Medications Result Diagram: 03/17/1725 03/17/17 0625 Results 24 hrs Laboratory Tests Test 03/17/17 06:25 White Blood Count 4.3 L Red Blood Count 3.28 L Hemoglobin 9.3 L Hematocrit 30.6 L Mean Corpuscular Volume 93.3 Mean Corpuscular Hemoglobin 28.4 L Mean Corpuscular Hemoglobin Concent 30.4 L Red Cell Distribution Width 15.2 H Platelet Count 131 L Mean Platelet Volume 10.5 H Neutrophils % 72.7 Lymphocytes % 16.0 Monocytes % 9.9 Eosinophils % 0.0 Basophils % 0.0 Nucleated Red Blood Cells % 0.0 Neutrophils # 3.1 Lymphocytes # 0.7 L Monocytes # 0.4 Eosinophils # 0.0 Basophils # 0.0 Nucleated Red Blood Cells # 0.0 Sodium Level 137 Potassium Level 4.1 Chloride Level 100 Carbon Dioxide Level 29 Anion Gap 12 Blood Urea Nitrogen 38 #H Creatinine 2.54 H Glucose Level 118 Calcium Level 8.2 L Phosphorus Level 5.2 H Magnesium Level 1.8 Medications Current Medications Acetaminophen (Tylenol Tab) 500 mg Q6H PRN PO PAIN AND OR ELEVATED TEMP Last administered on 03/17/17t 12:23; Admin Dose 500 MG; Start 03/01/17 at 13:30 Lidocaine (Lidocaine 5% Oint) 1 applic BID TOP Last administered on 03/17/17 08:55; Admin Dose 1 APPLIC; Start 03/01/17 at 21:00 Lidocaine (Lidoderm) 1 patch DAILY TD Last administered on 03/17/17 08:56; Admin Dose 1 PATCH; Start 03/02/17 at 09:00 Metolazone (Zaroxolyn) 2.5 mg DAILY PO Last administered on 03/17/17 08:57; Admin Dose 2.5 MG; Start 03/02/17 at 09:00 Oxycodone HCl (Roxicodone) 2.5 mg Q6H PRN PO PAIN Last administered on 19:59; Admin Dose 2.5 MG; Start 03/01/17 at 13:30 Prednisone (Prednisone) 5 mg DAILY PO Last administered on 03/17/17 08:57; Admin Dose 5 MG; Start 03/02/17 at 09:00 Eye Lubricant (Akwa Oint) 1 applic DAILY PRN RIGHT EYE ITCHING Last administered on 03/12/17 09:57; Admin Dose 1 APPLIC; Start 03/01/17 at 15:00 Bisacodyl (Dulcolax) 5 mg DAILY PRN PO CONSTIPATION Last administered on 15:48; Admin Dose 5 MG; Start 03/01/17 at 15:00 Cyclosporine (Sandimmune) 25 mg BID PO Last administered on 03/17/17 08:57; Admin Dose 25 MG; Start 03/01/17 at 21:00 Doxazosin Mesylate (Cardura) 2 mg QHS PO Last administered on 03/16/17 20:49 ; Admin Dose 2 MG; Start 03/01/17 at 21:00 Fluticasone Propionate (Flonase 0.05% Nasal) 1 spray BID NASAL Last administered on 03/17/17 08:55; Admin Dose 1 SPRAY; Start 03/01/17 at 21:00 Senna/Docusate Sodium (Senokot-S) 1 tab QHS PRN PO CONSTIPATION Last administered on 03/14/17 12:30; Admin Dose 1 TAB; Start 03/01/17 at 15:00 Thiamine HCl (Vitamin B1) 100 mg DAILY PO Last administered on 03/17/17 08:57 ; Admin Dose 100 MG; Start 03/02/17 at 09:00 Eye Lubricant (Artificial Tears Oph) 1 drop Q4H PRN BOTH EYES ITCHING EYES Last administered on 03/16/17 10:40; Admin Dose 1 DROP; Start 03/01/17 at 15: 30 Apixaban (Eliquis) 2.5 mg BID PO Last administered on 03/17/17 08:56; Admin Dose 2.5 MG; Start 03/04/17 at 21:00 Lansoprazole (Prevacid) 30 mg DAILY@06 GTB Last administered on 03/17/17 05: 28; Admin Dose 30 MG; Start 03/06/17 at 06:00 Miscellaneous Information (Pending [facility] Order For Wound Care) This patient moraes... PRN PRN XX WOUND CARE; Start 03/10/17 at 15:00 Hydrocortisone 25 mg 25 mg BID IV Last administered on 03/17/17 08:55; Admin Dose 25 MG; Start 03/13/17 at 09:00 Cefepime HCl 50 ml @ 100 mls/hr Q24H IVPB Last administered on 03/17/17 14: 00; Admin Dose 100 MLS/HR; Start 03/16/17 at 14:00 Vancomycin HCl (Vancocin) 250 ml @ 125 mls/hr Q96H IVPB ; Start 03/17/17 at 22 :00 Miscellaneous Information (*Rx Drug Level Order Reminder*) VANCO TROUGH @ 2, 100 ON ... ONCE ONCE XX ; Start 03/17/17 at 21:00; Stop 03/17/17 at 21:01 Assessment/Plan Additional Assessment/Plan IMP: 1. s/p hypoxemic respiratory failure. Status post extubation 2. Chronic immunosuppression owing to history of renal transplant, however patient has renal failure and requiring hemodialysis on a regular basis. 3. Generalized deconditioning. 4. Thrombocytopenia. 5. Anemia. 6. end-stage renal failure on hemodialysis, history of renal transplant with immunosuppressive medication 7. History of recent pacemaker placement. RECS: 1. Continue supplemental O2 2. Continue bronchodilators 3. Hemodialysis with volume removal as tolerated TONEY SALEH MD Mar 17, 2017 17:27
[2017-03-17] MEDS: DOXAZOSIN 2 MG TAB PO SCH (20:47)
[2017-03-17] MEDS ORDERED: VANCOMYCIN 1 GM in NS 250 ML IVPB SCH (22:00)
[2017-03-18] VITALS (19 sets, daily range): BP systolic 126–159; BP diastolic 78–98; PULSE 60–62; RESP 17–23
[2017-03-18] MEDS: LANSOPRAZOLE 30 MG CAP GTB SCH (05:10)
[2017-03-18] MEDS: ACETAMINOPHEN 500 MG TAB PO PRN ×2 (05:24→22:03)
[2017-03-18] MEDS: predniSONE 5 MG TAB PO SCH (08:58)
[2017-03-18] MEDS: APIXABAN 5 MG TABLET PO SCH ×2 (08:58→21:31)
[2017-03-18] MEDS: LIDOCAINE 5% PATCH TD SCH (08:58)
[2017-03-18] MEDS: THIAMINE 100 MG TAB PO SCH (08:58)
[2017-03-18] MEDS: CYCLOSPORINE 25 MG CAP PO SCH ×2 (08:58→21:31)
[2017-03-18] MEDS: HYDROCORTISONE 100 MG INJ IV SCH ×3 (08:59→21:29)
[2017-03-18] MEDS: FLUTICASONE 0.05% 16 GM NAS SPRAY NASAL SCH ×2 (08:59→21:32)
[2017-03-18] MEDS: BALSAM PERU/CASTOR OIL 60 GM TUBE TOP SCH (08:59)
[2017-03-18] MEDS: METOLAZONE 2.5 MG TAB PO SCH (08:59)
[2017-03-18] MEDS: LIDOCAINE 5% 35 GM OINT TOP SCH ×2 (08:59→21:34)
[2017-03-18] MEDS: CEFEPIME 1GM/50 ML (PMX) 50 ML IVPB SCH (14:31)
--- NOTE | 2017-03-18 16:15 | PN ---
DATE: 03/18/2017 SUBJECTIVE: The patient is stable. No events overnight. No fevers, chills, nausea, vomiting. OBJECTIVE: VITAL SIGNS: Blood pressure is 153/95, respiration 19, pulse 60, temperature 98.0. HEENT: Head is normocephalic. NECK: Supple. HEART: Regular rate. LUNGS: Show diminished breath sounds at base. ABDOMEN: Soft, nontender to palpation without rebound or guarding. EXTREMITIES: Negative for clubbing, cyanosis, no edema. DERMATOLOGIC: No rashes. MUSCULOSKELETAL: No joint effusions. NEUROLOGIC: No change in exam. MEDICATIONS: The patient's medications have been reviewed. LABORATORY DATA: Sodium 135, potassium 4.4, chloride 96, BUN 59, creatinine 3.27 phosphorus 5.4, ca lcium 7.9. White count 5.0, hemoglobin 9.1, hematocrit 31.1, platelet count is . ASSESSMENT AND PLAN: 1. Acute respiratory failure. The patient is currently on BiPAP at night and nasal cannula today. Continue to monitor. Follow up with pulmonary. 2. Sepsis, status post shock. Etiology secondary to pneumonia. Continue current antibiotic regime n. Follow up with infectious disease. 3. 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 The patient is currently dialysis dependent. Continue hemodialysis. 4. History of end-stage renal disease status post cadaveric renal transplant. The patient is curre ntly in acute kidney injury as stated above. Continue current treatment plan. Continue immunosuppr essive regimen. 5. Sinus arrhythmia, status post pacemaker. Continue to monitor. 6. Anemia. Monitor hemoglobin and hematocrit levels. 7. Mineral bone disease. Monitor calcium and phosphorus levels. 8. Acute encephalopathy, resolved. 9. Nutrition. Continue p.o. intake. 10. Hepatitis C. 11. History of gout. 12. Gastrointestinal and deep venous thrombosis prophylaxis. 13. Debility. Placed a physical therapy consult. Dictated By: PATRIA CARTER Conf#: [id number] DID#: [id number]
--- NOTE | 2017-03-18 16:17 | CONS ---
Date/Time of Note Date/Time of Note DATE: 03/18/17 TIME: 16:16 Consult Date/Type/Reason Admit Date/Time Mar 01, 2017 at 13:35 Initial Consult Date 03/01/17 Type of Consultation: Pulm Subjective No events Objective Vital Signs Date Time Temp Pulse Resp B/P Pulse Ox O2 Delivery O2 Flow Rate FiO2 03/18/17 15:47 Nasal Cannula 3.0 03/18/17 15:44 98.5 18 150/92 95 03/18/17 15:35 60 03/18/17 08:53 32 Intake and Output 03/17/17 03/17/17 03/18/17 15:00 23:00 07:00 Intake Total 900 ml 300 ml Output Total 0 ml Balance 900 ml 300 ml Exam HEENT: Neck supple; no JVD; no LAD CVS: RRR, S1 and S2 CHEST: Clear ABD: Soft, NT, + BS EXT: No c/c; tr edema Results/Medications Result Diagram: 03/18/17 0730 03/18/17 0730 Results 24 hrs Laboratory Tests Test 03/17/17 21:00 03/18/17 07:30 Vancomycin Level Trough 13.1 White Blood Count 5.0 Red Blood Count 3.36 L Hemoglobin 9.1 L Hematocrit 31.1 L Mean Corpuscular Volume 92.6 Mean Corpuscular Hemoglobin 27.1 L Mean Corpuscular Hemoglobin Concent 29.3 L Red Cell Distribution Width 15.5 H Platelet Count 109 L Mean Platelet Volume 10.5 H Neutrophils % 73.6 Lymphocytes % 15.8 Monocytes % 9.2 Eosinophils % 0.2 Basophils % 0.0 Nucleated Red Blood Cells % 0.0 Neutrophils # 3.7 Lymphocytes # 0.8 Monocytes # 0.5 Eosinophils # 0.0 Basophils # 0.0 Nucleated Red Blood Cells # 0.0 Sodium Level 135 Potassium Level 4.4 Chloride Level 96 L Carbon Dioxide Level 26 Anion Gap 17 H Blood Urea Nitrogen 59 H Creatinine 3.27 H Glucose Level 100 Calcium Level 7.9 L Phosphorus Level 5.4 H Magnesium Level 1.9 Medications Current Medications Acetaminophen (Tylenol Tab) 500 mg Q6H PRN PO PAIN AND OR ELEVATED TEMP Last administered on 03/18/17t 05:24; Admin Dose 500 MG; Start 03/01/17 at 13:30 Lidocaine (Lidocaine 5% Oint) 1 applic BID TOP Last administered on 03/18/17 08:59; Admin Dose 1 APPLIC; Start 03/01/17 at 21:00 Lidocaine (Lidoderm) 1 patch DAILY TD Last administered on 03/18/17 08:58; Admin Dose 1 PATCH; Start 03/02/17 at 09:00 Metolazone (Zaroxolyn) 2.5 mg DAILY PO Last administered on 03/18/17 08:59; Admin Dose 2.5 MG; Start 03/02/17 at 09:00 Oxycodone HCl (Roxicodone) 2.5 mg Q6H PRN PO PAIN Last administered on 19:59; Admin Dose 2.5 MG; Start 03/01/17 at 13:30 Prednisone (Prednisone) 5 mg DAILY PO Last administered on 03/18/17 08:58; Admin Dose 5 MG; Start 03/02/17 at 09:00 Eye Lubricant (Akwa Oint) 1 applic DAILY PRN RIGHT EYE ITCHING Last administered on 03/12/17 09:57; Admin Dose 1 APPLIC; Start 03/01/17 at 15:00 Bisacodyl (Dulcolax) 5 mg DAILY PRN PO CONSTIPATION Last administered on 15:48; Admin Dose 5 MG; Start 03/01/17 at 15:00 Cyclosporine (Sandimmune) 25 mg BID PO Last administered on 03/18/17 08:58; Admin Dose 25 MG; Start 03/01/17 at 21:00 Doxazosin Mesylate (Cardura) 2 mg QHS PO Last administered on 03/17/17 20:47 ; Admin Dose 2 MG; Start 03/01/17 at 21:00 Fluticasone Propionate (Flonase 0.05% Nasal) 1 spray BID NASAL Last administered on 03/18/17 08:59; Admin Dose 1 SPRAY; Start 03/01/17 at 21:00 Senna/Docusate Sodium (Senokot-S) 1 tab QHS PRN PO CONSTIPATION Last administered on 03/14/17 12:30; Admin Dose 1 TAB; Start 03/01/17 at 15:00 Thiamine HCl (Vitamin B1) 100 mg DAILY PO Last administered on 03/18/17 08:58 ; Admin Dose 100 MG; Start 03/02/17 at 09:00 Eye Lubricant (Artificial Tears Oph) 1 drop Q4H PRN BOTH EYES ITCHING EYES Last administered on 03/16/17 10:40; Admin Dose 1 DROP; Start 03/01/17 at 15: 30 Apixaban (Eliquis) 2.5 mg BID PO Last administered on 03/18/17 08:58; Admin Dose 2.5 MG; Start 03/04/17 at 21:00 Lansoprazole (Prevacid) 30 mg DAILY@06 GTB Last administered on 03/18/17 05: 10; Admin Dose 30 MG; Start 03/06/17 at 06:00 Miscellaneous Information (Pending [facility] Order For Wound Care) This patient morase... PRN PRN XX WOUND CARE; Start 03/10/17 at 15:00 Hydrocortisone 25 mg 25 mg BID IV Last administered on 03/17/17 20:46; Admin Dose 25 MG; Start 03/13/17 at 09:00 Cefepime HCl 50 ml @ 100 mls/hr Q24H IVPB Last administered on 03/18/17 14: 31; Admin Dose 100 MLS/HR; Start 03/16/17 at 14:00 Vancomycin HCl (Vancocin) 250 ml @ 125 mls/hr Q96H IVPB Last administered on 03/17/17 21:02; Admin Dose 125 MLS/HR; Start 03/17/17 at 22:00 Assessment/Plan Additional Assessment/Plan IMP: 1. s/p hypoxemic respiratory failure. Status post extubation 2. Chronic immunosuppression owing to history of renal transplant, however patient has renal failure and requiring hemodialysis on a regular basis. 3. Generalized deconditioning. 4. Thrombocytopenia. 5. Anemia. 6. end-stage renal failure on hemodialysis, history of renal transplant with immunosuppressive medication 7. History of recent pacemaker placement. RECS: 1. Continue supplemental O2 2. Continue bronchodilators 3. HD/UF 4. Mobilize TONEY BOSWELL MD Mar 18, 2017 16:17
[2017-03-18] MEDS: IPRATROPIUM (HFA) 12.9 GM INHALER INH PRN (17:15)
[2017-03-18] MEDS: ALBUTEROL 18 GM INHALER INH PRN (17:15)
--- NOTE | 2017-03-18 19:36 | CONS ---
Date/Time of Note Date/Time of Note DATE: 03/18/17 TIME: 19:33 Consult Date/Type/Reason Admit Date/Time Mar 01, 2017 at 13:35 Initial Consult Date 03/01/17 Type of Consultation: ID Objective Vital Signs Date Time Temp Pulse Resp B/P Pulse Ox O2 Delivery O2 Flow Rate FiO2 03/18/17 17:42 3.0 32 03/18/17 16:06 60 03/18/17 15:47 Nasal Cannula 03/18/17 15:44 98.5 18 150/92 95 Intake and Output 03/17/17 03/17/17 03/18/17 15:00 23:00 07:00 Intake Total 900 ml 300 ml Output Total 0 ml Balance 900 ml 300 ml Results/Medications Result Diagram: 03/18/1772903/18/17729 Results 24 hrs Laboratory Tests Test 03/17/17 21:00 03/18/17 07:30 Vancomycin Level Trough 13.1 White Blood Count 5.0 Red Blood Count 3.36 L Hemoglobin 9.1 L Hematocrit 31.1 L Mean Corpuscular Volume 92.6 Mean Corpuscular Hemoglobin 27.1 L Mean Corpuscular Hemoglobin Concent 29.3 L Red Cell Distribution Width 15.5 H Platelet Count 109 L Mean Platelet Volume 10.5 H Neutrophils % 73.6 Lymphocytes % 15.8 Monocytes % 9.2 Eosinophils % 0.2 Basophils % 0.0 Nucleated Red Blood Cells % 0.0 Neutrophils # 3.7 Lymphocytes # 0.8 Monocytes # 0.5 Eosinophils # 0.0 Basophils # 0.0 Nucleated Red Blood Cells # 0.0 Sodium Level 135 Potassium Level 4.4 Chloride Level 96 L Carbon Dioxide Level 26 Anion Gap 17 H Blood Urea Nitrogen 59 H Creatinine 3.27 H Glucose Level 100 Calcium Level 7.9 L Phosphorus Level 5.4 H Magnesium Level 1.9 Medications Current Medications Acetaminophen (Tylenol Tab) 500 mg Q6H PRN PO PAIN AND OR ELEVATED TEMP Last administered on 03/18/17 05:24; Admin Dose 500 MG; Start 03/01/17 at 13:30 Lidocaine (Lidocaine 5% Oint) 1 applic BID TOP Last administered on 03/18/17 08:59; Admin Dose 1 APPLIC; Start 03/01/17 at 21:00 Lidocaine (Lidoderm) 1 patch DAILY TD Last administered on 03/18/17 08:58; Admin Dose 1 PATCH; Start 03/02/17 at 09:00 Metolazone (Zaroxolyn) 2.5 mg DAILY PO Last administered on 03/18/17 08:59; Admin Dose 2.5 MG; Start 03/02/17 at 09:00 Oxycodone HCl (Roxicodone) 2.5 mg Q6H PRN PO PAIN Last administered on 19:59; Admin Dose 2.5 MG; Start 03/01/17 at 13:30 Prednisone (Prednisone) 5 mg DAILY PO Last administered on 03/18/17 08:58; Admin Dose 5 MG; Start 03/02/17 at 09:00 Eye Lubricant (Akwa Oint) 1 applic DAILY PRN RIGHT EYE ITCHING Last administered on 03/12/17 09:57; Admin Dose 1 APPLIC; Start 03/01/17 at 15:00 Bisacodyl (Dulcolax) 5 mg DAILY PRN PO CONSTIPATION Last administered on 15:48; Admin Dose 5 MG; Start 03/01/17 at 15:00 Cyclosporine (Sandimmune) 25 mg BID PO Last administered on 03/18/17 08:58; Admin Dose 25 MG; Start 03/01/17 at 21:00 Doxazosin Mesylate (Cardura) 2 mg QHS PO Last administered on 03/17/17 20:47 ; Admin Dose 2 MG; Start 03/01/17 at 21:00 Fluticasone Propionate (Flonase 0.05% Nasal) 1 spray BID NASAL Last administered on 03/18/17 08:59; Admin Dose 1 SPRAY; Start 03/01/17 at 21:00 Senna/Docusate Sodium (Senokot-S) 1 tab QHS PRN PO CONSTIPATION Last administered on 03/14/17 12:30; Admin Dose 1 TAB; Start 03/01/17 at 15:00 Thiamine HCl (Vitamin B1) 100 mg DAILY PO Last administered on 03/18/17 08:58 ; Admin Dose 100 MG; Start 03/02/17 at 09:00 Eye Lubricant (Artificial Tears Oph) 1 drop Q4H PRN BOTH EYES ITCHING EYES Last administered on 03/16/17 10:40; Admin Dose 1 DROP; Start 03/01/17 at 15: 30 Apixaban (Eliquis) 2.5 mg BID PO Last administered on 03/18/17 08:58; Admin Dose 2.5 MG; Start 03/04/17 at 21:00 Lansoprazole (Prevacid) 30 mg DAILY@06 GTB Last administered on 03/18/17 05: 10; Admin Dose 30 MG; Start 03/06/17 at 06:00 Miscellaneous Information [facility] This patient moraes... PRN PRN XX WOUND CARE; Start 03/10/17 at 15:00 Hydrocortisone 25 mg 25 mg BID IV Last administered on 03/17/17 20:46; Admin Dose 25 MG; Start 03/13/17 at 09:00 Cefepime HCl 50 ml @ 100 mls/hr Q24H IVPB Last administered on 03/18/17 14: 31; Admin Dose 100 MLS/HR; Start 03/16/17 at 14:00 Vancomycin HCl (Vancocin) 250 ml @ 125 mls/hr Q96H IVPB Last administered on 03/17/17 21:02; Admin Dose 125 MLS/HR; Start 03/17/17 at 22:00 Assessment/Plan Chief Complaint/Hosp Course SUBJECTIVE: Alert, with increased SOB since last night, comfortable on nc INDWELLINGS: Right chest Perm-A-Cath. Antimicrobials: Vancomycin, cefepime PHYSICAL EXAMINATION: GENERAL: Well-developed, fragile, elderly man who is awake, in no distress. HEENT: Head atraumatic, normocephalic. Sclerae anicteric. Buccal mucosa dry. NECK: Supple. CHEST: Rise symmetrical. Breath sounds diminished to bases. HEART: S1, S2. ABDOMEN: Soft. Bowel tones present. ASSESSMENT: 1. Status post septic shock/ pneumonia 2. Status post urinary tract infection. 3. End-stage renal disease, hemodialysis dependent. 4. History of kidney transplant. 5. Sick sinus syndrome, status post permanent pacemaker placed on 02/27/2017. 6. Acute on chronic resp failure PLAN: Remains stable, continue present care, anti-aspiration measures, pulmonary rec-s, f/u cxr. DW patient Problems: MYLA CHIU NP Mar 18, 2017 19:36
[2017-03-18] MEDS: DOXAZOSIN 2 MG TAB PO SCH (21:30)
[2017-03-18] MEDS: OCULAR LUBRICANT 3.5 GM OPH OINT RIGHT EYE PRN (21:37)
[2017-03-18] MEDS: oxyCODONE 5 MG TAB PO PRN (22:52)
[2017-03-19] VITALS (21 sets, daily range): BP systolic 120–163; BP diastolic 66–92; PULSE 59–80; RESP 19–24
[2017-03-19] MEDS: LANSOPRAZOLE 30 MG CAP GTB SCH (06:00)
--- NOTE | 2017-03-19 07:58 | PN ---
DATE: 03/17/2017 SUBJECTIVE: The patient is stable, currently on nasal cannula. No other acute events noted. OBJECTIVE: VITAL SIGNS: Blood pressure is 142/85, temperature 98.2, pulse 60, respirations 18. HEENT: Head is normocephalic. NECK: Supple. HEART: Regular rate. LUNGS: Show diminished breath sounds at base. ABDOMEN: Soft, nontender to palpation. No rebound or guarding. EXTREMITIES: Negative for clubbing, cyanosis. No edema. DERMATOLOGIC: No rashes. MUSCULOSKELETAL: No joint effusions. NEUROLOGIC: No change in exam. MEDICATIONS: The patient's medications have been reviewed. LABORATORY DATA: Shows a white count 4.3, hemoglobin 9.3, hematocrit 30.6, platelet count is 131, s odium 134, potassium 4.1, BUN 38, creatinine 2.51, phosphorus 5.2. ASSESSMENT AND PLAN: 1. Acute respiratory failure. The patient is status post extubation, currently stable. Continue B iPAP as needed. Continue supplemental oxygen. 2. Sepsis, status post shock secondary to pneumonia. Continue current antibiotic regimen. 3. 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 Etiology is secondary to a cute tubular necrosis. The patient is currently dialysis dependent. We will monitor for any signs of recovery. 4. History of end-stage renal disease status post cadaveric renal transplant. The patient is curre ntly in acute kidney injury as stated above. Continue current treatment plan. Continue immunosuppr essive regimen. 5. Sinus arrhythmia, status post pacemaker placement. Continue to monitor. 6. Anemia. Monitor hemoglobin and hematocrit levels. 7. Mineral bone disorder. Monitor calcium and phosphorous levels. 8. Acute encephalopathy, etiology is toxic metabolic. improved. 9. Nutrition. Continue to encourage p.o. intake. 10. History of hepatitis C. 11. History of gout. 12. Gastrointestinal and DVT prophylaxis. Dictated By: PATRIA CHANEY/BECKIE Conf#: [id number] DID#: [id number]
[2017-03-19] MEDS: HYDROCORTISONE 100 MG INJ IV SCH ×2 (09:00→20:18)
[2017-03-19] MEDS: METOLAZONE 2.5 MG TAB PO SCH (09:00)
[2017-03-19] MEDS: predniSONE 5 MG TAB PO SCH (09:00)
[2017-03-19] MEDS: APIXABAN 5 MG TABLET PO SCH ×2 (09:00→20:19)
[2017-03-19] MEDS: THIAMINE 100 MG TAB PO SCH (09:00)
[2017-03-19] MEDS: CYCLOSPORINE 25 MG CAP PO SCH ×2 (09:00→20:19)
[2017-03-19] MEDS: LIDOCAINE 5% 35 GM OINT TOP SCH ×2 (09:01→20:26)
[2017-03-19] MEDS: LIDOCAINE 5% PATCH TD SCH (09:01)
[2017-03-19] MEDS: FLUTICASONE 0.05% 16 GM NAS SPRAY NASAL SCH ×2 (09:02→20:19)
[2017-03-19] MEDS: BALSAM PERU/CASTOR OIL 60 GM TUBE TOP SCH (09:02)
--- NOTE | 2017-03-19 09:08 | PN ---
DATE: 03/19/2017 SUBJECTIVE: The patient is stable. No events overnight. The patient is scheduled for hemodialysis today. No other events noted. OBJECTIVE: VITAL SIGNS: Blood pressure is 161/92, temperature 97.6, pulse 69, respirations 22. HEENT: Head is normocephalic. NECK: Supple. HEART: Regular rate. LUNGS: Show diminished breath sounds at base. ABDOMEN: Soft, nontender to palpation without rebound or guarding. EXTREMITIES: Negative for clubbing, cyanosis, or edema. DERMATOLOGIC: No rashes. MUSCULOSKELETAL: No joint effusions. NEUROLOGIC: No change in exam. MEDICATIONS: The patient's medications have been reviewed. LABORATORY DATA: From 03/18/2017 reviewed. Laboratory data from 03/19/2017 is pending. ASSESSMENT AND PLAN: 1. Acute respiratory failure. The patient is currently on BiPAP, continue to monitor. 2. Sepsis, status post shock secondary to pneumonia. Continue current antibiotic regimen. 3. 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 Etiology secondary to acut e tubular necrosis. The patient is currently dialysis dependent. Continue to monitor for any signs of recovery. 4. History of end-stage renal disease status post cadaveric renal transplant. The patient is curre nt in acute kidney injury as stated above. Continue current treatment plan. Continue immunosuppres sive regimen. 5. Sinus arrhythmia, status post pacemaker placement. Continue to monitor. 6. Mineral bone disease. Monitor calcium and phosphorus levels. 7. Acute encephalopathy, etiology toxic metabolic, improved. 8. Nutrition. Continue current p.o. intake. 9. History of hepatitis C. 10. History of gout. 11. Gastrointestinal and deep vein thrombosis prophylaxis. Dictated By: PATRIA CHANEY/BECKIE Conf#: [id number] DID#: [id number]
--- NOTE | 2017-03-19 12:00 | PN ---
DATE: 03/16/2017 INFECTIOUS DISEASE PROGRESS NOTE SUBJECTIVE: The patient is alert, currently in hemodialysis. Denies pain, discomfort. Comfortable on nasal cannula. He was transferred out of ICU and currently on telemetry floor. VITAL SIGNS: Temperature 97.8, pulse 77, respirations 16, blood pressure 128/72, saturation 96%. LABORATORY DATA: WBC 4.8, platelets 144. INDWELLINGS: Right chest Perm-A-Cath, femoral triple-lumen catheter. PHYSICAL EXAMINATION: GENERAL: Well-developed, fragile, elderly man who is awake, in no distress. HEENT: Head atraumatic, normocephalic. Sclerae anicteric. Buccal mucosa pink. NECK: Supple. CHEST: Rise symmetrical. Breath sounds diminished to bases. HEART: S1, S2. ABDOMEN: Soft, bowel tones present. EXTREMITIES: With trace edema. ASSESSMENT: 1. Healthcare-associated pneumonia as well as aspiration pneumonia, status post procedure for perma nent pacemaker placement. 2. Status post respiratory failure. 3. End-stage renal disease, hemodialysis dependent. 4. Coronary artery disease, status post permanent pacemaker placement on 02/27/2017. 5. Status post urinary tract infection and septic shock. PLAN: The patient is stable. Antibiotics were discontinued 3 days ago. Chest x-ray with worse norma earance of the right lung base. PLAN: We are going to restart the patient on cefepime. Continue present care. Follow chest x-ray. Continue anti-aspiration measures. Dictated By: MYLA CHIU RAILWAY SIGNAL OPERATOR for VIC ARMAS/BECKIE Conf#: [id number] DID#: [id number]
--- NOTE | 2017-03-19 12:00 | PN ---
DATE: 03/16/2017 INFECTIOUS DISEASE PROGRESS NOTE SUBJECTIVE: The patient is alert, currently in hemodialysis. Denies pain, discomfort. Comfortable on nasal cannula. He was transferred out of ICU and currently on telemetry floor. VITAL SIGNS: Temperature 97.8, pulse 77, respirations 16, blood pressure 128/72, saturation 96%. LABORATORY DATA: WBC 4.8, platelets 144. INDWELLINGS: Right chest Perm-A-Cath, femoral triple-lumen catheter. PHYSICAL EXAMINATION: GENERAL: Well-developed, fragile, elderly man who is awake, in no distress. HEENT: Head atraumatic, normocephalic. Sclerae anicteric. Buccal mucosa pink. NECK: Supple. CHEST: Rise symmetrical. Breath sounds diminished to bases. HEART: S1, S2. ABDOMEN: Soft, bowel tones present. EXTREMITIES: With trace edema. ASSESSMENT: 1. Healthcare-associated pneumonia as well as aspiration pneumonia, status post procedure for perma nent pacemaker placement. 2. Status post respiratory failure. 3. End-stage renal disease, hemodialysis dependent. 4. Coronary artery disease, status post permanent pacemaker placement on 02/27/2017. 5. Status post urinary tract infection and septic shock. PLAN: The patient is stable. Antibiotics were discontinued 3 days ago. Chest x-ray with worse norma earance of the right lung base. PLAN: We are going to restart the patient on cefepime. Continue present care. Follow chest x-ray. Continue anti-aspiration measures. Dictated By: MYLA CHIU SLD EDUCATIONAL AIDE for VIC ARMAS/BECKIE Conf#: [id number] DID#: [id number]
--- NOTE | 2017-03-19 12:00 | PN ---
DATE: 03/16/2017 INFECTIOUS DISEASE PROGRESS NOTE SUBJECTIVE: The patient is alert, currently in hemodialysis. Denies pain, discomfort. Comfortable on nasal cannula. He was transferred out of ICU and currently on telemetry floor. VITAL SIGNS: Temperature 97.8, pulse 77, respirations 16, blood pressure 128/72, saturation 96%. LABORATORY DATA: WBC 4.8, platelets 144. INDWELLINGS: Right chest Perm-A-Cath, femoral triple-lumen catheter. PHYSICAL EXAMINATION: GENERAL: Well-developed, fragile, elderly man who is awake, in no distress. HEENT: Head atraumatic, normocephalic. Sclerae anicteric. Buccal mucosa pink. NECK: Supple. CHEST: Rise symmetrical. Breath sounds diminished to bases. HEART: S1, S2. ABDOMEN: Soft, bowel tones present. EXTREMITIES: With trace edema. ASSESSMENT: 1. Healthcare-associated pneumonia as well as aspiration pneumonia, status post procedure for perma nent pacemaker placement. 2. Status post respiratory failure. 3. End-stage renal disease, hemodialysis dependent. 4. Coronary artery disease, status post permanent pacemaker placement on 02/27/2017. 5. Status post urinary tract infection and septic shock. PLAN: The patient is stable. Antibiotics were discontinued 3 days ago. Chest x-ray with worse norma earance of the right lung base. PLAN: We are going to restart the patient on cefepime. Continue present care. Follow chest x-ray. Continue anti-aspiration measures. Dictated By: MYLA CHIU RETAIL ACCOUNT SPECIALIST for VIC ARMAS/BECKIE Conf#: [id number] DID#: [id number]
--- NOTE | 2017-03-19 13:04 | CONS ---
Date/Time of Note Date/Time of Note DATE: 03/19/17 TIME: 13:03 Consult Date/Type/Reason Admit Date/Time Mar 01, 2017 at 13:35 Initial Consult Date 03/01/17 Type of Consultation: ID Objective Vital Signs Date Time Temp Pulse Resp B/P Pulse Ox O2 Delivery O2 Flow Rate FiO2 03/19/17 12:43 59 03/19/17 12:31 3.0 03/19/17 11:00 16 03/19/17 09:10 30 03/19/17 08:10 Nasal Cannula 03/19/17 07:46 97.6 161/92 93 Intake and Output 03/18/17 03/18/17 03/19/17 15:00 23:00 07:00 Intake Total 900 ml 700 ml Output Total 0 ml Balance 900 ml 700 ml Results/Medications Result Diagram: 03/19/17 0709 03/19/17 0709 Results 24 hrs Laboratory Tests Test 03/19/17 07:09 White Blood Count 5.6 Red Blood Count 3.67 L Hemoglobin 10.1 L Hematocrit 34.1 L Mean Corpuscular Volume 92.9 Mean Corpuscular Hemoglobin 27.5 L Mean Corpuscular Hemoglobin Concent 29.6 L Red Cell Distribution Width 15.7 H Platelet Count 110 L Mean Platelet Volume 10.8 H Neutrophils % 72.6 Lymphocytes % 15.4 Monocytes % 10.7 Eosinophils % 0.2 Basophils % 0.0 Nucleated Red Blood Cells % 0.0 Neutrophils # 4.1 Lymphocytes # 0.9 Monocytes # 0.6 Eosinophils # 0.0 Basophils # 0.0 Nucleated Red Blood Cells # 0.0 Sodium Level 133 L Potassium Level 5.0 Chloride Level 94 L Carbon Dioxide Level 26 Anion Gap 18 H Blood Urea Nitrogen 79 H Creatinine 4.17 H Glucose Level 87 Calcium Level 8.3 L Phosphorus Level 5.6 H Magnesium Level 1.9 Medications Current Medications Acetaminophen (Tylenol Tab) 500 mg Q6H PRN PO PAIN AND OR ELEVATED TEMP Last administered on 03/18/17 22:03; Admin Dose 500 MG; Start 03/01/17 at 13:30 Lidocaine (Lidocaine 5% Oint) 1 applic BID TOP Last administered on 03/19/17 09:01; Admin Dose 1 APPLIC; Start 03/01/17 at 21:00 Lidocaine (Lidoderm) 1 patch DAILY TD Last administered on 03/19/17 09:01; Admin Dose 1 PATCH; Start 03/02/17 at 09:00 Metolazone (Zaroxolyn) 2.5 mg DAILY PO Last administered on 03/19/17 09:00; Admin Dose 2.5 MG; Start 03/02/17 at 09:00 Oxycodone HCl (Roxicodone) 2.5 mg Q6H PRN PO PAIN Last administered on 22:52; Admin Dose 2.5 MG; Start 03/01/17 at 13:30 Prednisone (Prednisone) 5 mg DAILY PO Last administered on 03/19/17 09:00; Admin Dose 5 MG; Start 03/02/17 at 09:00 Eye Lubricant (Akwa Oint) 1 applic DAILY PRN RIGHT EYE ITCHING Last administered on 03/18/17 21:37; Admin Dose 1 APPLIC; Start 03/01/17 at 15:00 Bisacodyl (Dulcolax) 5 mg DAILY PRN PO CONSTIPATION Last administered on 15:48; Admin Dose 5 MG; Start 03/01/17 at 15:00 Cyclosporine (Sandimmune) 25 mg BID PO Last administered on 03/19/17 09:00; Admin Dose 25 MG; Start 03/01/17 at 21:00 Doxazosin Mesylate (Cardura) 2 mg QHS PO Last administered on 03/18/17 21:30 ; Admin Dose 2 MG; Start 03/01/17 at 21:00 Fluticasone Propionate (Flonase 0.05% Nasal) 1 spray BID NASAL Last administered on 03/19/17 09:02; Admin Dose 1 SPRAY; Start 03/01/17 at 21:00 Senna/Docusate Sodium (Senokot-S) 1 tab QHS PRN PO CONSTIPATION Last administered on 03/14/17 12:30; Admin Dose 1 TAB; Start 03/01/17 at 15:00 Thiamine HCl (Vitamin B1) 100 mg DAILY PO Last administered on 03/19/17 09:00 ; Admin Dose 100 MG; Start 03/02/17 at 09:00 Eye Lubricant (Artificial Tears Oph) 1 drop Q4H PRN BOTH EYES ITCHING EYES Last administered on 03/16/17 10:40; Admin Dose 1 DROP; Start 03/01/17 at 15: 30 Apixaban (Eliquis) 2.5 mg BID PO Last administered on 03/19/17 09:00; Admin Dose 2.5 MG; Start 03/04/17 at 21:00 Lansoprazole (Prevacid) 30 mg DAILY@06 GTB Last administered on 03/18/17 05: 10; Admin Dose 30 MG; Start 03/06/17 at 06:00 Miscellaneous Information (Pending [facility] Order For Wound Care) This patient moraes... PRN PRN XX WOUND CARE; Start 03/10/17 at 15:00 Hydrocortisone 25 mg 25 mg BID IV Last administered on 03/19/17 09:00; Admin Dose 25 MG; Start 03/13/17 at 09:00 Cefepime HCl 50 ml @ 100 mls/hr Q24H IVPB Last administered on 03/18/17 14: 31; Admin Dose 100 MLS/HR; Start 03/16/17 at 14:00 Vancomycin HCl (Vancocin) 250 ml @ 125 mls/hr Q96H IVPB Last administered on 03/17/17 21:02; Admin Dose 125 MLS/HR; Start 03/17/17 at 22:00 Assessment/Plan Chief Complaint/Hosp Course SUBJECTIVE: Alert, in HD, looks comfortable on nc, no fevers w INDWELLINGS: Right chest Perm-A-Cath. Antimicrobials: Vancomycin, cefepime PHYSICAL EXAMINATION: GENERAL: Well-developed, fragile, elderly man who is awake, in no distress. HEENT: Head atraumatic, normocephalic. Sclerae anicteric. Buccal mucosa dry. NECK: Supple. CHEST: Rise symmetrical. Breath sounds diminished to bases. HEART: S1, S2. ABDOMEN: Soft. Bowel tones present. ASSESSMENT: 1. Status post septic shock/ pneumonia 2. Status post urinary tract infection. 3. End-stage renal disease, hemodialysis dependent. 4. History of kidney transplant. 5. Sick sinus syndrome, status post permanent pacemaker placed on 02/27/2017. 6. Acute on chronic resp failure PLAN: Remains stable, pending CXR, continue present care, anti-aspiration measures, f/u pulmonary rec-s DW patient Problems: MYLA CHIU NP Mar 19, 2017 13:04
[2017-03-19] MEDS: CEFEPIME 1GM/50 ML (PMX) 50 ML IVPB SCH (13:49)
--- NOTE | 2017-03-19 14:44 | CONS ---
Date/Time of Note Date/Time of Note DATE: 03/19/17 TIME: 14:43 Consult Date/Type/Reason Admit Date/Time Mar 01, 2017 at 13:35 Initial Consult Date 03/01/17 Type of Consultation: Pulmonary Subjective Patient comfortable this morning. No acute distress. Objective Vital Signs Date Time Temp Pulse Resp B/P Pulse Ox O2 Delivery O2 Flow Rate FiO2 03/19/17 12:43 59 03/19/17 12:31 3.0 03/19/17 11:00 16 03/19/17 09:10 30 03/19/17 08:10 Nasal Cannula 03/19/17 07:46 97.6 161/92 93 Intake and Output 03/18/17 03/18/17 03/19/17 15:00 23:00 07:00 Intake Total 900 ml 700 ml Output Total 0 ml Balance 900 ml 700 ml Exam GENERAL: Elderly appearing gentleman appears comfortable at rest VITAL SIGNS: per chart NECK: Supple. No JVD or lymphadenopathy. CARDIAC EXAM: S1, S2. No added sounds or murmurs. CHEST: Diminished air entry both lung bases ABDOMEN: Soft, nontender. No guarding or rebound. EXTREMITIES: No cyanosis, clubbing or edema. NEUROLOGIC: Generalized weakness. No focal deficits. Results/Medications Result Diagram: 03/19/17 0709 03/19/17 0709 Results 24 hrs Laboratory Tests Test 03/19/17 07:09 White Blood Count 5.6 Red Blood Count 3.67 L Hemoglobin 10.1 L Hematocrit 34.1 L Mean Corpuscular Volume 92.9 Mean Corpuscular Hemoglobin 27.5 L Mean Corpuscular Hemoglobin Concent 29.6 L Red Cell Distribution Width 15.7 H Platelet Count 110 L Mean Platelet Volume 10.8 H Neutrophils % 72.6 Lymphocytes % 15.4 Monocytes % 10.7 Eosinophils % 0.2 Basophils % 0.0 Nucleated Red Blood Cells % 0.0 Neutrophils # 4.1 Lymphocytes # 0.9 Monocytes # 0.6 Eosinophils # 0.0 Basophils # 0.0 Nucleated Red Blood Cells # 0.0 Sodium Level 133 L Potassium Level 5.0 Chloride Level 94 L Carbon Dioxide Level 26 Anion Gap 18 H Blood Urea Nitrogen 79 H Creatinine 4.17 H Glucose Level 87 Calcium Level 8.3 L Phosphorus Level 5.6 H Magnesium Level 1.9 Medications Current Medications Acetaminophen (Tylenol Tab) 500 mg Q6H PRN PO PAIN AND OR ELEVATED TEMP Last administered on 03/18/17 22:03; Admin Dose 500 MG; Start 03/01/17 at 13:30 Lidocaine (Lidocaine 5% Oint) 1 applic BID TOP Last administered on 03/19/17 09:01; Admin Dose 1 APPLIC; Start 03/01/17 at 21:00 Lidocaine (Lidoderm) 1 patch DAILY TD Last administered on 03/19/17 09:01; Admin Dose 1 PATCH; Start 03/02/17 at 09:00 Metolazone (Zaroxolyn) 2.5 mg DAILY PO Last administered on 03/19/17 09:00; Admin Dose 2.5 MG; Start 03/02/17 at 09:00 Oxycodone HCl (Roxicodone) 2.5 mg Q6H PRN PO PAIN Last administered on 22:52; Admin Dose 2.5 MG; Start 03/01/17 at 13:30 Prednisone (Prednisone) 5 mg DAILY PO Last administered on 03/19/17 09:00; Admin Dose 5 MG; Start 03/02/17 at 09:00 Eye Lubricant (Akwa Oint) 1 applic DAILY PRN RIGHT EYE ITCHING Last administered on 03/18/17 21:37; Admin Dose 1 APPLIC; Start 03/01/17 at 15:00 Bisacodyl (Dulcolax) 5 mg DAILY PRN PO CONSTIPATION Last administered on 15:48; Admin Dose 5 MG; Start 03/01/17 at 15:00 Cyclosporine (Sandimmune) 25 mg BID PO Last administered on 03/19/17 09:00; Admin Dose 25 MG; Start 03/01/17 at 21:00 Doxazosin Mesylate (Cardura) 2 mg QHS PO Last administered on 03/18/17 21:30 ; Admin Dose 2 MG; Start 03/01/17 at 21:00 Fluticasone Propionate (Flonase 0.05% Nasal) 1 spray BID NASAL Last administered on 03/19/17 09:02; Admin Dose 1 SPRAY; Start 03/01/17 at 21:00 Senna/Docusate Sodium (Senokot-S) 1 tab QHS PRN PO CONSTIPATION Last administered on 03/14/17 12:30; Admin Dose 1 TAB; Start 03/01/17 at 15:00 Thiamine HCl (Vitamin B1) 100 mg DAILY PO Last administered on 03/19/17 09:00 ; Admin Dose 100 MG; Start 03/02/17 at 09:00 Eye Lubricant (Artificial Tears Oph) 1 drop Q4H PRN BOTH EYES ITCHING EYES Last administered on 03/16/17 10:40; Admin Dose 1 DROP; Start 03/01/17 at 15: 30 Apixaban (Eliquis) 2.5 mg BID PO Last administered on 03/19/17 09:00; Admin Dose 2.5 MG; Start 03/04/17 at 21:00 Lansoprazole (Prevacid) 30 mg DAILY@06 GTB Last administered on 03/18/17 05: 10; Admin Dose 30 MG; Start 03/06/17 at 06:00 Miscellaneous Information (Pending [facility] Order For Wound Care) This patient moraes... PRN PRN XX WOUND CARE; Start 03/10/17 at 15:00 Hydrocortisone 25 mg 25 mg BID IV Last administered on 03/19/17 09:00; Admin Dose 25 MG; Start 03/13/17 at 09:00 Cefepime HCl 50 ml @ 100 mls/hr Q24H IVPB Last administered on 03/19/17 13: 49; Admin Dose 100 MLS/HR; Start 03/16/17 at 14:00 Vancomycin HCl (Vancocin) 250 ml @ 125 mls/hr Q96H IVPB Last administered on 03/17/17 21:02; Admin Dose 125 MLS/HR; Start 03/17/17 at 22:00 Assessment/Plan Chief Complaint/Hosp Course IMP: 1. s/p hypoxemic respiratory failure. Status post extubation 2. Chronic immunosuppression owing to history of renal transplant, however patient has renal failure and requiring hemodialysis on a regular basis. 3. Generalized deconditioning. 4. Thrombocytopenia. 5. Anemia. 6. end-stage renal failure on hemodialysis, history of renal transplant with immunosuppressive medication 7. History of recent pacemaker placement. RECS: 1. Continue supplemental O2 2. Continue bronchodilators 3. HD/UF 4. Mobilize OOB We will likely need nursing facility placement Problems: [facility] C[facility] Mar 19, 2017 14:44
--- NOTE | 2017-03-19 15:54 | RADRPT ---
PROCEDURE: XR Chest. CLINICAL INDICATION: Shortness of breath. TECHNIQUE: Single frontal view. COMPARISON: 03/16/2017. FINDINGS: The tunneled right internal jugular vein dialysis catheter and left sided permanent pacemaker remain in satisfactory position. There is right basilar atelectasis or pneumonia, slightly improved when c ompared with the prior study. Left basilar air space disease is unchanged. The heart is enlarged. There is calcification in the aorta consistent with atherosclerosis. There is no pleural effusion or pneumothorax. There are severe degenerative changes of both glenohumeral joints with marked deformity. IMPRESSION: 1. Slightly improved appearance of the right lung base. 2. No other change from 03/16/2017. RPTAT: QQ .Pa Arroyo MD, MD Date Time Electronically viewed and signed by .Pa Arroyo MD, MD on 03/19/2017 15:54 .R/
[2017-03-19] MEDS: DOXAZOSIN 2 MG TAB PO SCH (20:19)
[2017-03-19] MEDS: ACETAMINOPHEN 500 MG TAB PO PRN (20:19)
--- NOTE | 2017-03-19 20:52 | CONS ---
Date/Time of Note Date/Time of Note DATE: 03/19/17 TIME: 20:50 Consult Date/Type/Reason Admit Date/Time Mar 01, 2017 at 13:35 Initial Consult Date 03/01/17 Type of Consultation: cardiology Subjective CARDIOLOGY FOLLOW UP NOTE: S: Discussed with staff and rhythm strip is reviewed. Patient remains in demand ventricular pacemaker. he is breathing better today but still has sob. he denies any cp or pressure to me. no active bleeding is reported no palpitations O: General: thin man, ON BIPAP. HEENT: NC/AT. . NECK: . no stridor. CV: RRR. systolic murmur; no gallop or rubs. chest: s/p left sided PPM, no hematoma or bleeding PULM: no wheezing mild rhonchi. GI: SOFT, NT, ND, no rebound or guarding Extremity:mild LE edema. no clubbing. neuro: awake and alert. responds appropriately . Psych: calm and pleasant rectal: deferred : normal male Objective Vital Signs Date Time Temp Pulse Resp B/P Pulse Ox O2 Delivery O2 Flow Rate FiO2 03/19/17 20:00 97.7 58 19 158/91 100 03/19/17 12:31 3.0 03/19/17 09:10 30 03/19/17 08:10 Nasal Cannula Intake and Output 03/18/17 03/18/17 03/19/17 15:00 23:00 07:00 Intake Total 900 ml 700 ml Output Total 0 ml Balance 900 ml 700 ml Results/Medications Result Diagram: 03/19/17 0709 03/19/17 0709 Results 24 hrs Laboratory Tests Test 03/19/17 07:09 White Blood Count 5.6 Red Blood Count 3.67 L Hemoglobin 10.1 L Hematocrit 34.1 L Mean Corpuscular Volume 92.9 Mean Corpuscular Hemoglobin 27.5 L Mean Corpuscular Hemoglobin Concent 29.6 L Red Cell Distribution Width 15.7 H Platelet Count 110 L Mean Platelet Volume 10.8 H Neutrophils % 72.6 Lymphocytes % 15.4 Monocytes % 10.7 Eosinophils % 0.2 Basophils % 0.0 Nucleated Red Blood Cells % 0.0 Neutrophils # 4.1 Lymphocytes # 0.9 Monocytes # 0.6 Eosinophils # 0.0 Basophils # 0.0 Nucleated Red Blood Cells # 0.0 Sodium Level 133 L Potassium Level 5.0 Chloride Level 94 L Carbon Dioxide Level 26 Anion Gap 18 H Blood Urea Nitrogen 79 H Creatinine 4.17 H Glucose Level 87 Calcium Level 8.3 L Phosphorus Level 5.6 H Magnesium Level 1.9 Medications Current Medications Acetaminophen (Tylenol Tab) 500 mg Q6H PRN PO PAIN AND OR ELEVATED TEMP Last administered on 03/19/17 20:19; Admin Dose 500 MG; Start 03/01/17 at 13:30 Lidocaine (Lidocaine 5% Oint) 1 applic BID TOP Last administered on 03/19/17 20:26; Admin Dose 1 APPLIC; Start 03/01/17 at 21:00 Lidocaine (Lidoderm) 1 patch DAILY TD Last administered on 03/19/17 09:01; Admin Dose 1 PATCH; Start 03/02/17 at 09:00 Metolazone (Zaroxolyn) 2.5 mg DAILY PO Last administered on 03/19/17 09:00; Admin Dose 2.5 MG; Start 03/02/17 at 09:00 Oxycodone HCl (Roxicodone) 2.5 mg Q6H PRN PO PAIN Last administered on 22:52; Admin Dose 2.5 MG; Start 03/01/17 at 13:30 Prednisone (Prednisone) 5 mg DAILY PO Last administered on 03/19/17 09:00; Admin Dose 5 MG; Start 03/02/17 at 09:00 Eye Lubricant (Akwa Oint) 1 applic DAILY PRN RIGHT EYE ITCHING Last administered on 03/18/17 21:37; Admin Dose 1 APPLIC; Start 03/01/17 at 15:00 Bisacodyl (Dulcolax) 5 mg DAILY PRN PO CONSTIPATION Last administered on 15:48; Admin Dose 5 MG; Start 03/01/17 at 15:00 Cyclosporine (Sandimmune) 25 mg BID PO Last administered on 03/19/17 20:19; Admin Dose 25 MG; Start 03/01/17 at 21:00 Doxazosin Mesylate (Cardura) 2 mg QHS PO Last administered on 03/19/17 20:19 ; Admin Dose 2 MG; Start 03/01/17 at 21:00 Fluticasone Propionate (Flonase 0.05% Nasal) 1 spray BID NASAL Last administered on 03/19/17 20:19; Admin Dose 1 SPRAY; Start 03/01/17 at 21:00 Senna/Docusate Sodium (Senokot-S) 1 tab QHS PRN PO CONSTIPATION Last administered on 03/14/17 12:30; Admin Dose 1 TAB; Start 03/01/17 at 15:00 Thiamine HCl (Vitamin B1) 100 mg DAILY PO Last administered on 03/19/17 09:00 ; Admin Dose 100 MG; Start 03/02/17 at 09:00 Eye Lubricant (Artificial Tears Oph) 1 drop Q4H PRN BOTH EYES ITCHING EYES Last administered on 03/16/17 10:40; Admin Dose 1 DROP; Start 03/01/17 at 15: 30 Apixaban (Eliquis) 2.5 mg BID PO Last administered on 03/19/17 20:19; Admin Dose 2.5 MG; Start 03/04/17 at 21:00 Lansoprazole (Prevacid) 30 mg DAILY@06 GTB Last administered on 03/18/17 05: 10; Admin Dose 30 MG; Start 03/06/17 at 06:00 Miscellaneous Information (Pending [facility]yl Order For Wound Care) This patient moraes... PRN PRN XX WOUND CARE; Start 03/10/17 at 15:00 Hydrocortisone 25 mg 25 mg BID IV Last administered on 03/19/17 20:18; Admin Dose 25 MG; Start 03/13/17 at 09:00 Cefepime HCl 50 ml @ 100 mls/hr Q24H IVPB Last administered on 03/19/17 13: 49; Admin Dose 100 MLS/HR; Start 03/16/17 at 14:00 Vancomycin HCl (Vancocin) 250 ml @ 125 mls/hr Q96H IVPB Last administered on 03/17/17 21:02; Admin Dose 125 MLS/HR; Start 03/17/17 at 22:00 Assessment/Plan Chief Complaint/Hosp Course 1. Acute on-chronic hypoxemic, hypercapnic respiratory failure, status post intubation, now extubated 2. Sick sinus syndrome, status post permanent pacemaker. 3. Atrial fibrillation with a slow ventricular response, heart rate under control with the pacemaker. 4. Septic shock: BP has improved now and pt is off of levophed drip now 5. Pneumonia. 6. Anemia. 7. History of hepatitis C. 8. History of renal transplant. 9. Renal failure, status post hemodialysis. 10. NSVT:Currently stable after pacemaker RECOMMENDATIONS: Antibiotic is being managed as per Infectious Disease recommendations. off of Procardia due to hypotension. cont eliquis as long as no bleeding Antirejection medications as per Renal. Dialysis as per Renal. replace lytes prn cont resp care, O2. f/u pulm rec cont HD to be adjusted per renal . cont O2 and BIPAP as needed. THANK YOU ROLAND DORSEY MD [facility] . Problems: ROLAND DORSEY MD Mar 19, 2017 20:52
[2017-03-20] VITALS (17 sets, daily range): BP systolic 117–173; BP diastolic 69–100; PULSE 60–69; RESP 18–23
[2017-03-20] MEDS: OCULAR LUBRICANT 3.5 GM OPH OINT RIGHT EYE PRN ×2 (01:40→20:44)
[2017-03-20] MEDS: LANSOPRAZOLE 30 MG CAP GTB SCH (07:34)
[2017-03-20] MEDS: predniSONE 5 MG TAB PO SCH (08:44)
[2017-03-20] MEDS: APIXABAN 5 MG TABLET PO SCH ×2 (08:44→20:35)
[2017-03-20] MEDS: METOLAZONE 2.5 MG TAB PO SCH (08:44)
[2017-03-20] MEDS: HYDROCORTISONE 100 MG INJ IV SCH ×2 (08:45→20:35)
[2017-03-20] MEDS: THIAMINE 100 MG TAB PO SCH (08:45)
[2017-03-20] MEDS: CYCLOSPORINE 25 MG CAP PO SCH ×2 (08:45→20:35)
[2017-03-20] MEDS: LIDOCAINE 5% 35 GM OINT TOP SCH ×2 (08:46→20:36)
[2017-03-20] MEDS: FLUTICASONE 0.05% 16 GM NAS SPRAY NASAL SCH ×2 (08:46→20:35)
[2017-03-20] MEDS: BALSAM PERU/CASTOR OIL 60 GM TUBE TOP SCH (08:46)
[2017-03-20] MEDS: LIDOCAINE 5% PATCH TD SCH (08:46)
--- NOTE | 2017-03-20 08:56 | PN ---
DATE: 03/20/2017 SUBJECTIVE: The patient is stable on BiPAP. The patient had hemodialysis yesterday with 2 liters r emoved. No other events noted. OBJECTIVE: VITAL SIGNS: Blood pressure 149/78, respirations 23, pulse 60, temperature 98.0. HEENT: Head is normocephalic. NECK: Supple. HEART: Regular rate. LUNGS: Show diminished breath sounds at base. ABDOMEN: Soft, nontender to palpation. No rebound or guarding. EXTREMITIES: Negative for clubbing, cyanosis, no edema. DERMATOLOGIC: No rashes. MUSCULOSKELETAL: No joint effusions. NEUROLOGIC: No change in exam. MEDICATIONS: The patient's medications have been reviewed. LABORATORY DATA: Shows sodium 135, potassium 4.5, chloride 96, BUN 64, creatinine 3.20. White coun t 5.1, hemoglobin 9.5, hematocrit 31.2, platelet count is 80. ASSESSMENT AND PLAN: 1. Acute respiratory failure. The patient is currently on BiPAP, continue. 2. Sepsis, status post shock secondary to pneumonia. Continue current antibiotic regimen. 3. 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 Etiology is secondary to a cute tubular necrosis. Patient is currently dialysis dependent. Continue to monitor. 4. Monitor for signs of recovery. 5. History of end-stage renal disease status post cataract renal transplant. The patient is curren tly in acute kidney injury as stated above. Continue current treatment plan. Continue current immu nosuppressive regimen. 6. No sinus arrhythmia, status post pacemaker. Continue to monitor. 7. Mineral bone disorder. Continue to monitor calcium and phosphorus levels. 8. Acute encephalopathy, etiology is toxic metabolic, improved. 9. Nutrition. Continue to encourage p.o. intake. 10. History of hepatitis C. 11. History of gout. 12. Gastrointestinal and deep venous thrombosis prophylaxis. Dictated By: PATRIA CHANEY/BECKIE Conf#: [id number] DID#: [id number]
[2017-03-20] MEDS: ACETAMINOPHEN 500 MG TAB PO PRN (09:09)
[2017-03-20] MEDS: oxyCODONE 5 MG TAB PO PRN ×2 (11:53→20:37)
--- NOTE | 2017-03-20 13:29 | CONS ---
Date/Time of Note Date/Time of Note DATE: 03/20/17 TIME: 13:28 Consult Date/Type/Reason Admit Date/Time Mar 01, 2017 at 13:35 Initial Consult Date 03/01/17 Type of Consultation: id Objective Vital Signs Date Time Temp Pulse Resp B/P Pulse Ox O2 Delivery O2 Flow Rate FiO2 03/20/17 12:36 60 03/20/17 11:30 98.2 18 162/89 92 03/20/17 08:00 Nasal Cannula 3.0 03/20/17 04:39 30 Intake and Output 03/19/17 03/19/17 03/20/17 15:00 23:00 07:00 Intake Total 450 ml 760 ml 400 ml Output Total 2450 ml 0 ml Balance -2000 ml 760 ml 400 ml Results/Medications Result Diagram: 03/20/1770403/20/17704 Results 24 hrs Laboratory Tests Test 03/20/17 07:05 White Blood Count 5.1 Red Blood Count 3.37 L Hemoglobin 9.5 L Hematocrit 31.2 L Mean Corpuscular Volume 92.6 Mean Corpuscular Hemoglobin 28.2 L Mean Corpuscular Hemoglobin Concent 30.4 L Red Cell Distribution Width 15.9 H Platelet Count 80 #L Mean Platelet Volume 10.7 H Neutrophils % 69.1 Lymphocytes % 16.7 Monocytes % 12.6 H Eosinophils % 0.2 Basophils % 0.0 Nucleated Red Blood Cells % 0.0 Neutrophils # 3.5 Lymphocytes # 0.9 Monocytes # 0.6 Eosinophils # 0.0 Basophils # 0.0 Nucleated Red Blood Cells # 0.0 Sodium Level 135 Potassium Level 4.5 Chloride Level 96 L Carbon Dioxide Level 28 Anion Gap 16 Blood Urea Nitrogen 64 H Creatinine 3.20 H Glucose Level 88 Calcium Level 8.0 L Phosphorus Level 4.1 Magnesium Level 1.8 Medications Current Medications Acetaminophen (Tylenol Tab) 500 mg Q6H PRN PO PAIN AND OR ELEVATED TEMP Last administered on 03/20/17 09:09; Admin Dose 500 MG; Start 03/01/17 at 13:30 Lidocaine (Lidocaine 5% Oint) 1 applic BID TOP Last administered on 03/20/17 08:46; Admin Dose 1 APPLIC; Start 03/01/17 at 21:00 Lidocaine (Lidoderm) 1 patch DAILY TD Last administered on 03/20/17 08:46; Admin Dose 1 PATCH; Start 03/02/17 at 09:00 Metolazone (Zaroxolyn) 2.5 mg DAILY PO Last administered on 03/20/17 08:44; Admin Dose 2.5 MG; Start 03/02/17 at 09:00 Oxycodone HCl (Roxicodone) 2.5 mg Q6H PRN PO PAIN Last administered on 11:53; Admin Dose 2.5 MG; Start 03/01/17 at 13:30 Prednisone (Prednisone) 5 mg DAILY PO Last administered on 03/20/17 08:44; Admin Dose 5 MG; Start 03/02/17 at 09:00 Eye Lubricant (Akwa Oint) 1 applic DAILY PRN RIGHT EYE ITCHING Last administered on 03/20/17 01:40; Admin Dose 1 APPLIC; Start 03/01/17 at 15:00 Bisacodyl (Dulcolax) 5 mg DAILY PRN PO CONSTIPATION Last administered on 15:48; Admin Dose 5 MG; Start 03/01/17 at 15:00 Cyclosporine (Sandimmune) 25 mg BID PO Last administered on 03/20/17 08:45; Admin Dose 25 MG; Start 03/01/17 at 21:00 Doxazosin Mesylate (Cardura) 2 mg QHS PO Last administered on 03/19/17 20:19 ; Admin Dose 2 MG; Start 03/01/17 at 21:00 Fluticasone Propionate (Flonase 0.05% Nasal) 1 spray BID NASAL Last administered on 03/20/17 08:46; Admin Dose 1 SPRAY; Start 03/01/17 at 21:00 Senna/Docusate Sodium (Senokot-S) 1 tab QHS PRN PO CONSTIPATION Last administered on 03/14/17 12:30; Admin Dose 1 TAB; Start 03/01/17 at 15:00 Thiamine HCl (Vitamin B1) 100 mg DAILY PO Last administered on 03/20/17 08:45 ; Admin Dose 100 MG; Start 03/02/17 at 09:00 Eye Lubricant (Artificial Tears Oph) 1 drop Q4H PRN BOTH EYES ITCHING EYES Last administered on 03/16/17 10:40; Admin Dose 1 DROP; Start 03/01/17 at 15: 30 Apixaban (Eliquis) 2.5 mg BID PO Last administered on 03/20/17 08:44; Admin Dose 2.5 MG; Start 03/04/17 at 21:00 Lansoprazole (Prevacid) 30 mg DAILY@06 GTB Last administered on 03/18/17 05: 10; Admin Dose 30 MG; Start 03/06/17 at 06:00 [facility] This patient moraes... PRN PRN XX WOUND CARE; Start 03/10/17 at 15:00 Hydrocortisone 25 mg 25 mg BID IV Last administered on 03/20/17 08:45; Admin Dose 25 MG; Start 03/13/17 at 09:00 Cefepime HCl 50 ml @ 100 mls/hr Q24H IVPB Last administered on 03/19/17 13: 49; Admin Dose 100 MLS/HR; Start 03/16/17 at 14:00 Vancomycin HCl (Vancocin) 250 ml @ 125 mls/hr Q96H IVPB Last administered on 03/17/17 21:02; Admin Dose 125 MLS/HR; Start 03/17/17 at 22:00 Assessment/Plan Chief Complaint/Hosp Course SUBJECTIVE: Alert, feels better, looks comfortable, no fevers INDWELLINGS: Right chest Perm-A-Cath. Antimicrobials: Vancomycin, cefepime PHYSICAL EXAMINATION: GENERAL: Well-developed, fragile, elderly man who is awake, in no distress. HEENT: Head atraumatic, normocephalic. Sclerae anicteric. Buccal mucosa dry. NECK: Supple. CHEST: Rise symmetrical. Breath sounds diminished to bases. HEART: S1, S2. ABDOMEN: Soft. Bowel tones present. ASSESSMENT: 1. Status post septic shock/ pneumonia 2. Status post urinary tract infection. 3. End-stage renal disease, hemodialysis dependent. 4. History of kidney transplant. 5. Sick sinus syndrome, status post permanent pacemaker placed on 02/27/2017. 6. Acute on chronic resp failure PLAN: Remains stable, CXR improving, continue present care, anti-aspiration measures, f/u pulmonary rec-s DW patient Problems: MYLA CHIU NP Mar 20, 2017 13:29
--- NOTE | 2017-03-20 14:11 | CONS ---
Date/Time of Note Date/Time of Note DATE: 03/20/17 TIME: 14:09 Consult Date/Type/Reason Admit Date/Time Mar 01, 2017 at 13:35 Initial Consult Date 03/01/17 Type of Consultation: cardiology Subjective CARDIOLOGY FOLLOW UP NOTE: S: d/w Discussed with staff and rhythm strip is reviewed. Patient remains in demand ventricular pacemaker. he is breathing better . he denies any cp or pressure to me. no active bleeding is reported no palpitations O: General: thin man, ON BIPAP. HEENT: NC/AT. . NECK: . no stridor. CV: RRR. systolic murmur; no gallop or rubs. chest: s/p left sided PPM, no hematoma or bleeding PULM: no wheezing mild rhonchi. GI: SOFT, NT, ND, no rebound or guarding Extremity:mild LE edema. no clubbing. neuro: awake and alert. responds appropriately . Psych: calm and pleasant rectal: deferred : normal male Objective Vital Signs Date Time Temp Pulse Resp B/P Pulse Ox O2 Delivery O2 Flow Rate FiO2 03/20/17 14:05 69 100 30 03/20/17 11:30 98.2 18 162/89 03/20/17 08:00 Nasal Cannula 3.0 Intake and Output 03/19/17 03/19/17 03/20/17 15:00 23:00 07:00 Intake Total 450 ml 760 ml 400 ml Output Total 2450 ml 0 ml Balance -2000 ml 760 ml 400 ml Results/Medications Result Diagram: 03/20/17 0705 03/20/17 0705 Results 24 hrs Laboratory Tests Test 03/20/17 07:05 White Blood Count 5.1 Red Blood Count 3.37 L Hemoglobin 9.5 L Hematocrit 31.2 L Mean Corpuscular Volume 92.6 Mean Corpuscular Hemoglobin 28.2 L Mean Corpuscular Hemoglobin Concent 30.4 L Red Cell Distribution Width 15.9 H Platelet Count 80 #L Mean Platelet Volume 10.7 H Neutrophils % 69.1 Lymphocytes % 16.7 Monocytes % 12.6 H Eosinophils % 0.2 Basophils % 0.0 Nucleated Red Blood Cells % 0.0 Neutrophils # 3.5 Lymphocytes # 0.9 Monocytes # 0.6 Eosinophils # 0.0 Basophils # 0.0 Nucleated Red Blood Cells # 0.0 Sodium Level 135 Potassium Level 4.5 Chloride Level 96 L Carbon Dioxide Level 28 Anion Gap 16 Blood Urea Nitrogen 64 H Creatinine 3.20 H Glucose Level 88 Calcium Level 8.0 L Phosphorus Level 4.1 Magnesium Level 1.8 Medications Current Medications Acetaminophen (Tylenol Tab) 500 mg Q6H PRN PO PAIN AND OR ELEVATED TEMP Last administered on 03/20/17 09:09; Admin Dose 500 MG; Start 03/01/17 at 13:30 Lidocaine (Lidocaine 5% Oint) 1 applic BID TOP Last administered on 03/20/17 08:46; Admin Dose 1 APPLIC; Start 03/01/17 at 21:00 Lidocaine (Lidoderm) 1 patch DAILY TD Last administered on 03/20/17 08:46; Admin Dose 1 PATCH; Start 03/02/17 at 09:00 Metolazone (Zaroxolyn) 2.5 mg DAILY PO Last administered on 03/20/17 08:44; Admin Dose 2.5 MG; Start 03/02/17 at 09:00 Oxycodone HCl (Roxicodone) 2.5 mg Q6H PRN PO PAIN Last administered on 11:53; Admin Dose 2.5 MG; Start 03/01/17 at 13:30 Prednisone (Prednisone) 5 mg DAILY PO Last administered on 03/20/17 08:44; Admin Dose 5 MG; Start 03/02/17 at 09:00 Eye Lubricant (Akwa Oint) 1 applic DAILY PRN RIGHT EYE ITCHING Last administered on 03/20/17 01:40; Admin Dose 1 APPLIC; Start 03/01/17 at 15:00 Bisacodyl (Dulcolax) 5 mg DAILY PRN PO CONSTIPATION Last administered on 15:48; Admin Dose 5 MG; Start 03/01/17 at 15:00 Cyclosporine (Sandimmune) 25 mg BID PO Last administered on 03/20/17 08:45; Admin Dose 25 MG; Start 03/01/17 at 21:00 Doxazosin Mesylate (Cardura) 2 mg QHS PO Last administered on 03/19/17 20:19 ; Admin Dose 2 MG; Start 03/01/17 at 21:00 Fluticasone Propionate (Flonase 0.05% Nasal) 1 spray BID NASAL Last administered on 03/20/17 08:46; Admin Dose 1 SPRAY; Start 03/01/17 at 21:00 Senna/Docusate Sodium (Senokot-S) 1 tab QHS PRN PO CONSTIPATION Last administered on 03/14/17 12:30; Admin Dose 1 TAB; Start 03/01/17 at 15:00 Thiamine HCl (Vitamin B1) 100 mg DAILY PO Last administered on 03/20/17 08:45 ; Admin Dose 100 MG; Start 03/02/17 at 09:00 Eye Lubricant (Artificial Tears Oph) 1 drop Q4H PRN BOTH EYES ITCHING EYES Last administered on 03/16/17 10:40; Admin Dose 1 DROP; Start 03/01/17 at 15: 30 Apixaban (Eliquis) 2.5 mg BID PO Last administered on 03/20/17 08:44; Admin Dose 2.5 MG; Start 03/04/17 at 21:00 Lansoprazole (Prevacid) 30 mg DAILY@06 GTB Last administered on 03/18/17 05: 10; Admin Dose 30 MG; Start 03/06/17 at 06:00 [facility] This patient moraes... PRN PRN XX WOUND CARE; Start 03/10/17 at 15:00 Hydrocortisone 25 mg 25 mg BID IV Last administered on 03/20/17 08:45; Admin Dose 25 MG; Start 03/13/17 at 09:00 Cefepime HCl 50 ml @ 100 mls/hr Q24H IVPB Last administered on 03/19/17 13: 49; Admin Dose 100 MLS/HR; Start 03/16/17 at 14:00 Vancomycin HCl (Vancocin) 250 ml @ 125 mls/hr Q96H IVPB Last administered on 03/17/17 21:02; Admin Dose 125 MLS/HR; Start 03/17/17 at 22:00 Assessment/Plan Chief Complaint/Hosp Course 1. Acute on-chronic hypoxemic, hypercapnic respiratory failure, status post intubation, now extubated 2. Sick sinus syndrome, status post permanent pacemaker. 3. Atrial fibrillation with a slow ventricular response, heart rate under control with the pacemaker. 4. Septic shock: BP has improved now and pt is off of levophed drip now 5. Pneumonia. 6. Anemia. 7. History of hepatitis C. 8. History of renal transplant. 9. Renal failure, status post hemodialysis. 10. NSVT:Currently stable after pacemaker RECOMMENDATIONS: Antibiotic is being managed as per Infectious Disease recommendations. off of Procardia due to hypotension. cont eliquis as long as no bleeding Antirejection medications as per Renal. Dialysis as per Renal. replace lytes prn cont resp care, O2. f/u pulm rec cont HD to be adjusted per renal . cont O2 and BIPAP as needed. pacermaker was interrogated 03/20/17 and personally reviewed. it shows normal function THANK YOU ROLAND DORSEY MD [facility] . Problems: ROLAND DORSEY MD Mar 20, 2017 14:11
[2017-03-20] MEDS: CEFEPIME 1GM/50 ML (PMX) 50 ML IVPB SCH (14:32)
--- NOTE | 2017-03-20 15:04 | CONS ---
Date/Time of Note Date/Time of Note DATE: 03/20/17 TIME: 15:02 Consult Date/Type/Reason Admit Date/Time Mar 01, 2017 at 13:35 Initial Consult Date 03/01/17 Type of Consultation: Pulmonary Subjective Patient appears comfortable this morning. Objective Vital Signs Date Time Temp Pulse Resp B/P Pulse Ox O2 Delivery O2 Flow Rate FiO2 03/20/17 14:05 69 100 30 03/20/17 11:30 98.2 18 162/89 03/20/17 08:00 Nasal Cannula 3.0 Intake and Output 03/19/17 03/19/17 03/20/17 15:00 23:00 07:00 Intake Total 450 ml 760 ml 400 ml Output Total 2450 ml 0 ml Balance -2000 ml 760 ml 400 ml Exam GENERAL: Elderly appearing gentleman appears comfortable at rest VITAL SIGNS: per chart NECK: Supple. No JVD or lymphadenopathy. CARDIAC EXAM: S1, S2. No added sounds or murmurs. CHEST: Diminished air entry both lung bases ABDOMEN: Soft, nontender. No guarding or rebound. EXTREMITIES: No cyanosis, clubbing or edema. NEUROLOGIC: Generalized weakness. No focal deficits. Results/Medications Result Diagram: 03/20/1770403/20/17704 Results 24 hrs Laboratory Tests Test 03/20/17 07:05 White Blood Count 5.1 Red Blood Count 3.37 L Hemoglobin 9.5 L Hematocrit 31.2 L Mean Corpuscular Volume 92.6 Mean Corpuscular Hemoglobin 28.2 L Mean Corpuscular Hemoglobin Concent 30.4 L Red Cell Distribution Width 15.9 H Platelet Count 80 #L Mean Platelet Volume 10.7 H Neutrophils % 69.1 Lymphocytes % 16.7 Monocytes % 12.6 H Eosinophils % 0.2 Basophils % 0.0 Nucleated Red Blood Cells % 0.0 Neutrophils # 3.5 Lymphocytes # 0.9 Monocytes # 0.6 Eosinophils # 0.0 Basophils # 0.0 Nucleated Red Blood Cells # 0.0 Sodium Level 135 Potassium Level 4.5 Chloride Level 96 L Carbon Dioxide Level 28 Anion Gap 16 Blood Urea Nitrogen 64 H Creatinine 3.20 H Glucose Level 88 Calcium Level 8.0 L Phosphorus Level 4.1 Magnesium Level 1.8 Medications Current Medications Acetaminophen (Tylenol Tab) 500 mg Q6H PRN PO PAIN AND OR ELEVATED TEMP Last administered on 03/20/17 09:09; Admin Dose 500 MG; Start 03/01/17 at 13:30 Lidocaine (Lidocaine 5% Oint) 1 applic BID TOP Last administered on 03/20/17 08:46; Admin Dose 1 APPLIC; Start 03/01/17 at 21:00 Lidocaine (Lidoderm) 1 patch DAILY TD Last administered on 03/20/17 08:46; Admin Dose 1 PATCH; Start 03/02/17 at 09:00 Metolazone (Zaroxolyn) 2.5 mg DAILY PO Last administered on 03/20/17 08:44; Admin Dose 2.5 MG; Start 03/02/17 at 09:00 Oxycodone HCl (Roxicodone) 2.5 mg Q6H PRN PO PAIN Last administered on 11:53; Admin Dose 2.5 MG; Start 03/01/17 at 13:30 Prednisone (Prednisone) 5 mg DAILY PO Last administered on 03/20/17 08:44; Admin Dose 5 MG; Start 03/02/17 at 09:00 Eye Lubricant (Akwa Oint) 1 applic DAILY PRN RIGHT EYE ITCHING Last administered on 03/20/17 01:40; Admin Dose 1 APPLIC; Start 03/01/17 at 15:00 Bisacodyl (Dulcolax) 5 mg DAILY PRN PO CONSTIPATION Last administered on 15:48; Admin Dose 5 MG; Start 03/01/17 at 15:00 Cyclosporine (Sandimmune) 25 mg BID PO Last administered on 03/20/17 08:45; Admin Dose 25 MG; Start 03/01/17 at 21:00 Doxazosin Mesylate (Cardura) 2 mg QHS PO Last administered on 03/19/17 20:19 ; Admin Dose 2 MG; Start 03/01/17 at 21:00 Fluticasone Propionate (Flonase 0.05% Nasal) 1 spray BID NASAL Last administered on 03/20/17 08:46; Admin Dose 1 SPRAY; Start 03/01/17 at 21:00 Senna/Docusate Sodium (Senokot-S) 1 tab QHS PRN PO CONSTIPATION Last administered on 03/14/17 12:30; Admin Dose 1 TAB; Start 03/01/17 at 15:00 Thiamine HCl (Vitamin B1) 100 mg DAILY PO Last administered on 03/20/17 08:45 ; Admin Dose 100 MG; Start 03/02/17 at 09:00 Eye Lubricant (Artificial Tears Oph) 1 drop Q4H PRN BOTH EYES ITCHING EYES Last administered on 03/16/17 10:40; Admin Dose 1 DROP; Start 03/01/17 at 15: 30 Apixaban (Eliquis) 2.5 mg BID PO Last administered on 03/20/17 08:44; Admin Dose 2.5 MG; Start 03/04/17 at 21:00 Lansoprazole (Prevacid) 30 mg DAILY@06 GTB Last administered on 03/18/17 05: 10; Admin Dose 30 MG; Start 03/06/17 at 06:00 Miscellaneous Information (Pending [facility] Order For Wound Care) This patient moraes... PRN PRN XX WOUND CARE; Start 03/10/17 at 15:00 Hydrocortisone 25 mg 25 mg BID IV Last administered on 03/20/17 08:45; Admin Dose 25 MG; Start 03/13/17 at 09:00 Cefepime HCl 50 ml @ 100 mls/hr Q24H IVPB Last administered on 03/20/17 14: 32; Admin Dose 100 MLS/HR; Start 03/16/17 at 14:00 Vancomycin HCl (Vancocin) 250 ml @ 125 mls/hr Q96H IVPB Last administered on 03/17/17 21:02; Admin Dose 125 MLS/HR; Start 03/17/17 at 22:00 Assessment/Plan Chief Complaint/Hosp Course IMP: 1. s/p hypoxemic respiratory failure. Status post extubation 2. Chronic immunosuppression owing to history of renal transplant, however patient has renal failure and requiring hemodialysis on a regular basis. 3. Generalized deconditioning. 4. Thrombocytopenia. 5. Anemia. 6. end-stage renal failure on hemodialysis, history of renal transplant with immunosuppressive medication 7. History of recent pacemaker placement. RECS: 1. Continue supplemental O2 2. Continue bronchodilators 3. HD/UF 4. Mobilize OOB Consider transfer to [facility] Consider [place] evaluation Problems: LIT COTA MD, [facility] Mar 20, 2017 15:04
[2017-03-20] MEDS: NIFEdipine (XL) 30 MG TAB PO SCH (16:09)
[2017-03-20] MEDS ORDERED: hydrALAzine 20 MG INJ IV PRN (20:00)
[2017-03-20] MEDS: DOXAZOSIN 2 MG TAB PO SCH (20:36)
[2017-03-20] MEDS: ALBUTEROL 18 GM INHALER INH PRN (20:42)
[2017-03-20] MEDS: IPRATROPIUM (HFA) 12.9 GM INHALER INH PRN (20:42)
[2017-03-20] MEDS: ARTIFICIAL TEARS 15 ML OPH BOTH EYES PRN (20:43)
[2017-03-21] VITALS (24 sets, daily range): BP systolic 90–160; BP diastolic 56–89; PULSE 59–66; RESP 18–21
[2017-03-21] MEDS: LANSOPRAZOLE 30 MG CAP GTB SCH (06:00)
--- NOTE | 2017-03-21 08:46 | CONS ---
Date/Time of Note Date/Time of Note DATE: 03/21/17 TIME: 08:45 Consult Date/Type/Reason Admit Date/Time Mar 01, 2017 at 13:35 Initial Consult Date 03/01/17 Type of Consultation: cardiology Subjective CARDIOLOGY FOLLOW UP NOTE: S: Discussed with staff and rhythm strip is reviewed. Patient remains in demand ventricular pacemaker. he is breathing better but still has sob with limited activity. he denies any cp or pressure to me. no active bleeding is reported no palpitations O: General: thin man, ON BIPAP. HEENT: NC/AT. . NECK: . no stridor. CV: RRR. systolic murmur; no gallop or rubs. chest: s/p left sided PPM, no hematoma or bleeding PULM: no wheezing mild rhonchi. GI: SOFT, NT, ND, no rebound or guarding Extremity:mild LE edema. no clubbing. neuro: awake and alert. responds appropriately . Psych: calm and pleasant rectal: deferred : normal male Objective Vital Signs Date Time Temp Pulse Resp B/P Pulse Ox O2 Delivery O2 Flow Rate FiO2 03/21/17 08:41 60 03/21/17 07:23 98.6 18 126/73 97 03/21/17 05:15 30 03/20/17 23:16 4.0 03/20/17 20:30 Nasal Cannula Intake and Output 03/20/17 03/20/17 03/21/17 15:00 23:00 07:00 Intake Total 530 ml 220 ml Balance 530 ml 220 ml Results/Medications Result Diagram: 03/20/17 0703/20/17 0705 Medications Current Medications Acetaminophen (Tylenol Tab) 500 mg Q6H PRN PO PAIN AND OR ELEVATED TEMP Last administered on 03/20/17 09:09; Admin Dose 500 MG; Start 03/01/17 at 13:30 Lidocaine (Lidocaine 5% Oint) 1 applic BID TOP Last administered on 03/20/17 20:36; Admin Dose 1 APPLIC; Start 03/01/17 at 21:00 Lidocaine (Lidoderm) 1 patch DAILY TD Last administered on 03/20/17 08:46; Admin Dose 1 PATCH; Start 03/02/17 at 09:00 Metolazone (Zaroxolyn) 2.5 mg DAILY PO Last administered on 03/20/17 08:44; Admin Dose 2.5 MG; Start 03/02/17 at 09:00 Oxycodone HCl (Roxicodone) 2.5 mg Q6H PRN PO PAIN Last administered on 20:37; Admin Dose 2.5 MG; Start 03/01/17 at 13:30 Prednisone (Prednisone) 5 mg DAILY PO Last administered on 03/20/17 08:44; Admin Dose 5 MG; Start 03/02/17 at 09:00 Eye Lubricant (Akwa Oint) 1 applic DAILY PRN RIGHT EYE ITCHING Last administered on 03/20/17 20:44; Admin Dose 1 APPLIC; Start 03/01/17 at 15:00 Bisacodyl (Dulcolax) 5 mg DAILY PRN PO CONSTIPATION Last administered on 15:48; Admin Dose 5 MG; Start 03/01/17 at 15:00 Cyclosporine (Sandimmune) 25 mg BID PO Last administered on 03/20/17 20:35; Admin Dose 25 MG; Start 03/01/17 at 21:00 Doxazosin Mesylate (Cardura) 2 mg QHS PO Last administered on 03/20/17 20:36 ; Admin Dose 2 MG; Start 03/01/17 at 21:00 Fluticasone Propionate (Flonase 0.05% Nasal) 1 spray BID NASAL Last administered on 03/20/17 20:35; Admin Dose 1 SPRAY; Start 03/01/17 at 21:00 Senna/Docusate Sodium (Senokot-S) 1 tab QHS PRN PO CONSTIPATION Last administered on 03/14/17 12:30; Admin Dose 1 TAB; Start 03/01/17 at 15:00 Thiamine HCl (Vitamin B1) 100 mg DAILY PO Last administered on 03/20/17 08:45 ; Admin Dose 100 MG; Start 03/02/17 at 09:00 Eye Lubricant (Artificial Tears Oph) 1 drop Q4H PRN BOTH EYES ITCHING EYES Last administered on 03/20/17 20:43; Admin Dose 1 DROP; Start 03/01/17 at 15: 30 Apixaban (Eliquis) 2.5 mg BID PO Last administered on 03/20/17 20:35; Admin Dose 2.5 MG; Start 03/04/17 at 21:00 Lansoprazole (Prevacid) 30 mg DAILY@06 GTB Last administered on 03/18/17 05: 10; Admin Dose 30 MG; Start 03/06/17 at 06:00 Miscellaneous Information (Pending Santyl Order For Wound Care) This patient moraes... PRN PRN XX WOUND CARE; Start 03/10/17 at 15:00 Hydrocortisone 25 mg 25 mg BID IV Last administered on 03/20/17 20:35; Admin Dose 25 MG; Start 03/13/17 at 09:00 Cefepime HCl 50 ml @ 100 mls/hr Q24H IVPB Last administered on 03/20/17 14: 32; Admin Dose 100 MLS/HR; Start 03/16/17 at 14:00 Vancomycin HCl (Vancocin) 250 ml @ 125 mls/hr Q96H IVPB Last administered on 03/17/17 21:02; Admin Dose 125 MLS/HR; Start 03/17/17 at 22:00 Nifedipine (Procardia Xl) 30 mg DAILY PO Last administered on 03/20/17 16:09 ; Admin Dose 30 MG; Start 03/20/17 at 16:00 Hydralazine HCl (Apresoline) 20 mg Q8H PRN IV SBP over 170; Start 03/20/17 at 20:00 Assessment/Plan Chief Complaint/Hosp Course 1. Acute on-chronic hypoxemic, hypercapnic respiratory failure, status post intubation, now extubated 2. Sick sinus syndrome, status post permanent pacemaker. 3. Atrial fibrillation with a slow ventricular response, heart rate under control with the pacemaker. 4. Septic shock: BP has improved now 5. Pneumonia. 6. Anemia. 7. History of hepatitis C. 8. History of renal transplant. 9. Renal failure, status post hemodialysis. 10. NSVT:Currently stable after pacemaker RECOMMENDATIONS: Antibiotic is being managed as per Infectious Disease recommendations. off of Procardia due to hypotension. cont eliquis as long as no bleeding Antirejection medications as per Renal. Dialysis as per Renal. replace lytes prn cont resp care, O2. f/u pulm rec cont HD to be adjusted per renal . cont O2 and BIPAP as needed. pacermaker was interrogated 03/20/17 and personally reviewed. it shows normal function. will cont to monitor THANK YOU ROLAND DORSEY MD [facility] . Problems: ROLAND DORSEY MD Mar 21, 2017 08:46
--- NOTE | 2017-03-21 09:21 | PN ---
DATE: 03/21/2017 SUBJECTIVE: The patient is stable. No events overnight. No fevers, chills, nausea, vomiting. OBJECTIVE: VITAL SIGNS: Blood pressure is 126/73, temperature 98.6, pulse 60, respiration 18. HEENT: Head is normocephalic. NECK: Supple. HEART: Regular rate. LUNGS: Show diminished breath sounds at the base. ABDOMEN: Soft, nontender to palpation without rebound or guarding. EXTREMITIES: Negative for clubbing or cyanosis. No edema. DERMATOLOGIC: No rashes. MUSCULOSKELETAL: No joint effusions. NEUROLOGIC: No change in exam. MEDICATIONS: The patient's medications have been reviewed. LABORATORY DATA: Has been reviewed. No new labs. ASSESSMENT AND PLAN: 1. Acute respiratory failure. The patient is currently on BiPAP, continue. Follow up with pulmona ry. 2. Sepsis, status post shock secondary to pneumonia. Continue current antibiotic regimen. 3. Nonoliguric acute kidney injury on top of chronic allograph failure. Etiology secondary to acut e tubular necrosis. The patient is currently dialysis dependent, monitor for any signs of recovery. 4. History of end-stage renal disease status post renal transplant. The patient is currently in ac amrita kidney injury as stated above. Continue treatment plan. Continue immunosuppressive regimen. 5. Arrhythmia, status post pacemaker. Continue to monitor. 6. Mineral bone disorder. Continue to monitor calcium and phosphorus levels. 7. Acute encephalopathy, improving. 8. Gastrointestinal and deep venous thrombosis prophylaxis. 9. History of hepatitis C. 10. History of gout. DISPOSITION: The patient is pending transfer to a subacute facility/residential facility close to patient's home residence. We will follow up with case management. Dictated By: PATRIA CHANEY/BECKIE Conf#: [id number] DID#: [id number]
[2017-03-21] MEDS: ACETAMINOPHEN 500 MG TAB PO PRN (10:38)
[2017-03-21] MEDS: LIDOCAINE 5% PATCH TD SCH (11:35)
[2017-03-21] MEDS: THIAMINE 100 MG TAB PO SCH (11:36)
[2017-03-21] MEDS: HYDROCORTISONE 100 MG INJ IV SCH ×2 (11:36→21:52)
[2017-03-21] MEDS: LIDOCAINE 5% 35 GM OINT TOP SCH ×2 (11:36→21:53)
[2017-03-21] MEDS: METOLAZONE 2.5 MG TAB PO SCH (11:36)
[2017-03-21] MEDS: CYCLOSPORINE 25 MG CAP PO SCH ×2 (11:36→21:49)
[2017-03-21] MEDS: BALSAM PERU/CASTOR OIL 60 GM TUBE TOP SCH (11:36)
[2017-03-21] MEDS: FLUTICASONE 0.05% 16 GM NAS SPRAY NASAL SCH ×2 (11:36→21:54)
[2017-03-21] MEDS: APIXABAN 5 MG TABLET PO SCH ×2 (11:37→21:49)
[2017-03-21] MEDS: NIFEdipine (XL) 30 MG TAB PO SCH (11:37)
[2017-03-21] MEDS: predniSONE 5 MG TAB PO SCH (11:38)
--- NOTE | 2017-03-21 11:49 | CONS ---
Date/Time of Note Date/Time of Note DATE: 03/21/17 TIME: 11:49 Consult Date/Type/Reason Admit Date/Time Mar 01, 2017 at 13:35 Initial Consult Date 03/01/17 Type of Consultation: Pulmonary Subjective No significant changes. Objective Vital Signs Date Time Temp Pulse Resp B/P Pulse Ox O2 Delivery O2 Flow Rate FiO2 03/21/17 10:35 63 03/21/17 07:35 14 03/21/17 07:23 98.6 126/73 97 03/21/17 05:15 30 03/20/17 23:16 4.0 03/20/17 20:30 Nasal Cannula Intake and Output 03/20/17 03/20/17 03/21/17 15:00 23:00 07:00 Intake Total 530 ml 220 ml Balance 530 ml 220 ml Exam GENERAL: Elderly appearing gentleman appears comfortable at rest VITAL SIGNS: per chart NECK: Supple. No JVD or lymphadenopathy. CARDIAC EXAM: S1, S2. No added sounds or murmurs. CHEST: Diminished air entry both lung bases ABDOMEN: Soft, nontender. No guarding or rebound. EXTREMITIES: No cyanosis, clubbing or edema. NEUROLOGIC: Generalized weakness. No focal deficits. Results/Medications Result Diagram: 03/20/1770403/20/17704 Medications Current Medications Acetaminophen (Tylenol Tab) 500 mg Q6H PRN PO PAIN AND OR ELEVATED TEMP Last administered on 03/21/17 10:38; Admin Dose 500 MG; Start 03/01/17 at 13:30 Lidocaine (Lidocaine 5% Oint) 1 applic BID TOP Last administered on 03/21/17 11:36; Admin Dose 1 APPLIC; Start 03/01/17 at 21:00 Lidocaine (Lidoderm) 1 patch DAILY TD Last administered on 03/21/17 11:35; Admin Dose 1 PATCH; Start 03/02/17 at 09:00 Metolazone (Zaroxolyn) 2.5 mg DAILY PO Last administered on 03/21/17 11:36; Admin Dose 2.5 MG; Start 03/02/17 at 09:00 Oxycodone HCl (Roxicodone) 2.5 mg Q6H PRN PO PAIN Last administered on 20:37; Admin Dose 2.5 MG; Start 03/01/17 at 13:30 Prednisone (Prednisone) 5 mg DAILY PO Last administered on 03/21/17 11:38; Admin Dose 5 MG; Start 03/02/17 at 09:00 Eye Lubricant (Akwa Oint) 1 applic DAILY PRN RIGHT EYE ITCHING Last administered on 03/20/17 20:44; Admin Dose 1 APPLIC; Start 03/01/17 at 15:00 Bisacodyl (Dulcolax) 5 mg DAILY PRN PO CONSTIPATION Last administered on 15:48; Admin Dose 5 MG; Start 03/01/17 at 15:00 Cyclosporine (Sandimmune) 25 mg BID PO Last administered on 03/21/17 11:36; Admin Dose 25 MG; Start 03/01/17 at 21:00 Doxazosin Mesylate (Cardura) 2 mg QHS PO Last administered on 03/20/17 20:36 ; Admin Dose 2 MG; Start 03/01/17 at 21:00 Fluticasone Propionate (Flonase 0.05% Nasal) 1 spray BID NASAL Last administered on 03/21/17 11:36; Admin Dose 1 SPRAY; Start 03/01/17 at 21:00 Senna/Docusate Sodium (Senokot-S) 1 tab QHS PRN PO CONSTIPATION Last administered on 03/14/17 12:30; Admin Dose 1 TAB; Start 03/01/17 at 15:00 Thiamine HCl (Vitamin B1) 100 mg DAILY PO Last administered on 03/21/17 11:36 ; Admin Dose 100 MG; Start 03/02/17 at 09:00 Eye Lubricant (Artificial Tears Oph) 1 drop Q4H PRN BOTH EYES ITCHING EYES Last administered on 03/20/17 20:43; Admin Dose 1 DROP; Start 03/01/17 at 15: 30 Apixaban (Eliquis) 2.5 mg BID PO Last administered on 03/21/17 11:37; Admin Dose 2.5 MG; Start 03/04/17 at 21:00 Lansoprazole (Prevacid) 30 mg DAILY@06 GTB Last administered on 03/18/17 05: 10; Admin Dose 30 MG; Start 03/06/17 at 06:00 Miscellaneous Information (Pending [facility] Order For Wound Care) This patient moraes... PRN PRN XX WOUND CARE; Start 03/10/17 at 15:00 Hydrocortisone 25 mg 25 mg BID IV Last administered on 03/21/17 11:36; Admin Dose 25 MG; Start 03/13/17 at 09:00 Cefepime HCl 50 ml @ 100 mls/hr Q24H IVPB Last administered on 03/20/17 14: 32; Admin Dose 100 MLS/HR; Start 03/16/17 at 14:00 Vancomycin HCl (Vancocin) 250 ml @ 125 mls/hr Q96H IVPB Last administered on 03/17/17 21:02; Admin Dose 125 MLS/HR; Start 03/17/17 at 22:00 Nifedipine (Procardia Xl) 30 mg DAILY PO Last administered on 03/21/17 11:37 ; Admin Dose 30 MG; Start 03/20/17 at 16:00 Hydralazine HCl (Apresoline) 20 mg Q8H PRN IV SBP over 170; Start 03/20/17 at 20:00 Assessment/Plan Chief Complaint/Hosp Course IMP: 1. s/p hypoxemic respiratory failure. Status post extubation 2. Chronic immunosuppression owing to history of renal transplant, however patient has renal failure and requiring hemodialysis on a regular basis. 3. Generalized deconditioning. 4. Thrombocytopenia. 5. Anemia. 6. end-stage renal failure on hemodialysis, history of renal transplant with immunosuppressive medication 7. History of recent pacemaker placement. RECS: 1. Continue supplemental O2 2. Continue bronchodilators 3. HD/UF 4. Mobilize OOB Consider transfer to [facility] Consider [place] evaluation Problems: LIT COTA MD, [facility] Mar 21, 2017 11:49
[2017-03-21] MEDS: oxyCODONE 5 MG TAB PO PRN ×2 (11:56→22:02)
[2017-03-21] MEDS: CEFEPIME 1GM/50 ML (PMX) 50 ML IVPB SCH (14:00)
--- NOTE | 2017-03-21 14:13 | CONS ---
Date/Time of Note Date/Time of Note DATE: 03/21/17 TIME: 14:10 Consult Date/Type/Reason Admit Date/Time Mar 01, 2017 at 13:35 Initial Consult Date 03/01/17 Type of Consultation: id Objective Vital Signs Date Time Temp Pulse Resp B/P Pulse Ox O2 Delivery O2 Flow Rate FiO2 03/21/17 12:08 59 03/21/17 11:53 98.1 18 138/73 97 03/21/17 05:15 30 03/20/17 23:16 4.0 03/20/17 20:30 Nasal Cannula Intake and Output 03/20/17 03/20/17 03/21/17 15:00 23:00 07:00 Intake Total 530 ml 220 ml Balance 530 ml 220 ml Results/Medications Result Diagram: 03/20/1770403/20/17 0705 Medications Current Medications Acetaminophen (Tylenol Tab) 500 mg Q6H PRN PO PAIN AND OR ELEVATED TEMP Last administered on 03/21/17 10:38; Admin Dose 500 MG; Start 03/01/17 at 13:30 Lidocaine (Lidocaine 5% Oint) 1 applic BID TOP Last administered on 03/21/17 11:36; Admin Dose 1 APPLIC; Start 03/01/17 at 21:00 Lidocaine (Lidoderm) 1 patch DAILY TD Last administered on 03/21/17 11:35; Admin Dose 1 PATCH; Start 03/02/17 at 09:00 Metolazone (Zaroxolyn) 2.5 mg DAILY PO Last administered on 03/21/17 11:36; Admin Dose 2.5 MG; Start 03/02/17 at 09:00 Oxycodone HCl (Roxicodone) 2.5 mg Q6H PRN PO PAIN Last administered on 11:56; Admin Dose 2.5 MG; Start 03/01/17 at 13:30 Prednisone (Prednisone) 5 mg DAILY PO Last administered on 03/21/17 11:38; Admin Dose 5 MG; Start 03/02/17 at 09:00 Eye Lubricant (Akwa Oint) 1 applic DAILY PRN RIGHT EYE ITCHING Last administered on 03/20/17 20:44; Admin Dose 1 APPLIC; Start 03/01/17 at 15:00 Bisacodyl (Dulcolax) 5 mg DAILY PRN PO CONSTIPATION Last administered on 15:48; Admin Dose 5 MG; Start 03/01/17 at 15:00 Cyclosporine (Sandimmune) 25 mg BID PO Last administered on 03/21/17 11:36; Admin Dose 25 MG; Start 03/01/17 at 21:00 Doxazosin Mesylate (Cardura) 2 mg QHS PO Last administered on 03/20/17 20:36 ; Admin Dose 2 MG; Start 03/01/17 at 21:00 Fluticasone Propionate (Flonase 0.05% Nasal) 1 spray BID NASAL Last administered on 03/21/17 11:36; Admin Dose 1 SPRAY; Start 03/01/17 at 21:00 Senna/Docusate Sodium (Senokot-S) 1 tab QHS PRN PO CONSTIPATION Last administered on 03/14/17 12:30; Admin Dose 1 TAB; Start 03/01/17 at 15:00 Thiamine HCl (Vitamin B1) 100 mg DAILY PO Last administered on 03/21/17 11:36 ; Admin Dose 100 MG; Start 03/02/17 at 09:00 Eye Lubricant (Artificial Tears Oph) 1 drop Q4H PRN BOTH EYES ITCHING EYES Last administered on 03/20/17 20:43; Admin Dose 1 DROP; Start 03/01/17 at 15: 30 Apixaban (Eliquis) 2.5 mg BID PO Last administered on 03/21/17 11:37; Admin Dose 2.5 MG; Start 03/04/17 at 21:00 Lansoprazole (Prevacid) 30 mg DAILY@06 GTB Last administered on 03/18/17 05: 10; Admin Dose 30 MG; Start 03/06/17 at 06:00 Miscellaneous Information (Pending Santyl Order For Wound Care) This patient moraes... PRN PRN XX WOUND CARE; Start 03/10/17 at 15:00 Hydrocortisone 25 mg 25 mg BID IV Last administered on 03/21/17 11:36; Admin Dose 25 MG; Start 03/13/17 at 09:00 Cefepime HCl 50 ml @ 100 mls/hr Q24H IVPB Last administered on 03/20/17 14: 32; Admin Dose 100 MLS/HR; Start 03/16/17 at 14:00 Vancomycin HCl (Vancocin) 250 ml @ 125 mls/hr Q96H IVPB Last administered on 03/17/17 21:02; Admin Dose 125 MLS/HR; Start 03/17/17 at 22:00 Nifedipine (Procardia Xl) 30 mg DAILY PO Last administered on 03/21/17 11:37 ; Admin Dose 30 MG; Start 03/20/17 at 16:00 Hydralazine HCl (Apresoline) 20 mg Q8H PRN IV SBP over 170; Start 03/20/17 at 20:00 Assessment/Plan Chief Complaint/Hosp Course SUBJECTIVE: Alert, feels better, looks comfortable, no fevers INDWELLINGS: Right chest Perm-A-Cath. Antimicrobials: Vancomycin, cefepime PHYSICAL EXAMINATION: GENERAL: Well-developed, fragile, elderly man who is awake, in no distress. HEENT: Head atraumatic, normocephalic. Sclerae anicteric. Buccal mucosa dry. NECK: Supple. CHEST: Rise symmetrical. Breath sounds diminished to bases. HEART: S1, S2. ABDOMEN: Soft. Bowel tones present. ASSESSMENT: 1. Status post septic shock/ pneumonia 2. Status post urinary tract infection. 3. End-stage renal disease, hemodialysis dependent. 4. History of kidney transplant. 5. Sick sinus syndrome, status post permanent pacemaker placed on 02/27/2017. 6. Acute on chronic resp failure PLAN: Remains stable, continue present care, anti-aspiration measures, complete abx, f/u pulmonary rec-s [facility] staff Problems: MYLA CHIU NP Mar 21, 2017 14:13
[2017-03-21] MEDS: DOXAZOSIN 2 MG TAB PO SCH (21:51)
[2017-03-21] MEDS: ARTIFICIAL TEARS 15 ML OPH BOTH EYES PRN (21:57)
[2017-03-22] VITALS (14 sets, daily range): BP systolic 139–152; BP diastolic 61–79; PULSE 60–70; RESP 17–22
[2017-03-22] MEDS: oxyCODONE 5 MG TAB PO PRN (04:41)
[2017-03-22] MEDS: LANSOPRAZOLE 30 MG CAP GTB SCH (05:58)
--- NOTE | 2017-03-22 08:33 | CONS ---
Date/Time of Note Date/Time of Note DATE: 03/22/17 TIME: 08:30 Consult Date/Type/Reason Admit Date/Time Mar 01, 2017 at 13:35 Initial Consult Date 03/01/17 Type of Consultation: cardiology Subjective CARDIOLOGY FOLLOW UP NOTE: S: Discussed with staff and rhythm strip is reviewed. Patient remains in demand ventricular pacemaker. he is breathing better he denies any cp or pressure to me. no active bleeding is reported no palpitations O: General: thin man, ON BIPAP. HEENT: NC/AT. . NECK: . no stridor. CV: RRR. systolic murmur; no gallop or rubs. chest: s/p left sided PPM, no hematoma or bleeding PULM: no wheezing mild rhonchi. GI: SOFT, NT, ND, no rebound or guarding Extremity:mild LE edema. no clubbing. neuro: awake and alert. Psych: calm and pleasant rectal: deferred : normal male Objective Vital Signs Date Time Temp Pulse Resp B/P Pulse Ox O2 Delivery O2 Flow Rate FiO2 03/22/17 08:12 60 03/22/17 07:39 97.5 17 152/79 97 03/22/17 03:00 30 03/21/17 20:21 4.0 03/21/17 20:00 Nasal Cannula Intake and Output 03/21/17 03/21/17 03/22/17 15:00 23:00 07:00 Intake Total 400 ml 820 ml 60 ml Output Total 2900 ml 400 ml Balance -2500 ml 820 ml -340 ml Results/Medications Result Diagram: 03/22/17 0616 03/22/17 0616 Results 24 hrs Laboratory Tests Test 03/22/17 06:16 White Blood Count 6.1 Red Blood Count 3.34 L Hemoglobin 9.4 L Hematocrit 30.8 L Mean Corpuscular Volume 92.2 Mean Corpuscular Hemoglobin 28.1 L Mean Corpuscular Hemoglobin Concent 30.5 L Red Cell Distribution Width 16.0 H Platelet Count 68 L Mean Platelet Volume 10.6 H Neutrophils % 75.2 Lymphocytes % 11.6 L Monocytes % 10.9 Eosinophils % 0.3 Basophils % 0.2 Nucleated Red Blood Cells % 0.0 Neutrophils # 4.6 Lymphocytes # 0.7 L Monocytes # 0.7 Eosinophils # 0.0 Basophils # 0.0 Nucleated Red Blood Cells # 0.0 Sodium Level 133 L Potassium Level 5.0 Chloride Level 94 L Carbon Dioxide Level 28 Anion Gap 16 Blood Urea Nitrogen 62 H Creatinine 2.88 H Glucose Level 139 # Calcium Level 8.2 L Phosphorus Level 2.9 Magnesium Level 1.7 Medications Current Medications Acetaminophen (Tylenol Tab) 500 mg Q6H PRN PO PAIN AND OR ELEVATED TEMP Last administered on 03/21/17 10:38; Admin Dose 500 MG; Start 03/01/17 at 13:30 Lidocaine (Lidocaine 5% Oint) 1 applic BID TOP Last administered on 03/21/17 21:53; Admin Dose 1 APPLIC; Start 03/01/17 at 21:00 Lidocaine (Lidoderm) 1 patch DAILY TD Last administered on 03/21/17 11:35; Admin Dose 1 PATCH; Start 03/02/17 at 09:00 Metolazone (Zaroxolyn) 2.5 mg DAILY PO Last administered on 03/21/17 11:36; Admin Dose 2.5 MG; Start 03/02/17 at 09:00 Oxycodone HCl (Roxicodone) 2.5 mg Q6H PRN PO PAIN Last administered on 04:41; Admin Dose 2.5 MG; Start 03/01/17 at 13:30 Prednisone (Prednisone) 5 mg DAILY PO Last administered on 03/21/17 11:38; Admin Dose 5 MG; Start 03/02/17 at 09:00 Eye Lubricant (Akwa Oint) 1 applic DAILY PRN RIGHT EYE ITCHING Last administered on 03/20/17 20:44; Admin Dose 1 APPLIC; Start 03/01/17 at 15:00 Bisacodyl (Dulcolax) 5 mg DAILY PRN PO CONSTIPATION Last administered on 15:48; Admin Dose 5 MG; Start 03/01/17 at 15:00 Cyclosporine (Sandimmune) 25 mg BID PO Last administered on 03/21/17 21:49; Admin Dose 25 MG; Start 03/01/17 at 21:00 Doxazosin Mesylate (Cardura) 2 mg QHS PO Last administered on 03/21/17 21:51 ; Admin Dose 2 MG; Start 03/01/17 at 21:00 Fluticasone Propionate (Flonase 0.05% Nasal) 1 spray BID NASAL Last administered on 03/21/17 21:54; Admin Dose 1 SPRAY; Start 03/01/17 at 21:00 Senna/Docusate Sodium (Senokot-S) 1 tab QHS PRN PO CONSTIPATION Last administered on 03/14/17 12:30; Admin Dose 1 TAB; Start 03/01/17 at 15:00 Thiamine HCl (Vitamin B1) 100 mg DAILY PO Last administered on 03/21/17 11:36 ; Admin Dose 100 MG; Start 03/02/17 at 09:00 Eye Lubricant (Artificial Tears Oph) 1 drop Q4H PRN BOTH EYES ITCHING EYES Last administered on 03/21/17 21:57; Admin Dose 1 DROP; Start 03/01/17 at 15: 30 Apixaban (Eliquis) 2.5 mg BID PO Last administered on 03/21/17 21:49; Admin Dose 2.5 MG; Start 03/04/17 at 21:00 Lansoprazole (Prevacid) 30 mg DAILY@06 GTB Last administered on 03/18/17 05: 10; Admin Dose 30 MG; Start 03/06/17 at 06:00 Miscellaneous Information (Pending [facility] Order For Wound Care) This patient moraes... PRN PRN XX WOUND CARE; Start 03/10/17 at 15:00 Hydrocortisone (Solu-Cortef) 25 mg BID IV Last administered on 03/21/17 21:52 ; Admin Dose 25 MG; Start 03/13/17 at 09:00 Nifedipine (Procardia Xl) 30 mg DAILY PO Last administered on 03/21/17 11:37 ; Admin Dose 30 MG; Start 03/20/17 at 16:00 Hydralazine HCl (Apresoline) 20 mg Q8H PRN IV SBP over 170; Start 03/20/17 at 20:00 Assessment/Plan Chief Complaint/Hosp Course 1. Acute on-chronic hypoxemic, hypercapnic respiratory failure, status post intubation, now extubated 2. Sick sinus syndrome, status post permanent pacemaker. 3. Atrial fibrillation with a slow ventricular response, heart rate under control with the pacemaker. 4. Septic shock: BP has improved now 5. Pneumonia. 6. Anemia. 7. History of hepatitis C. 8. History of renal transplant. 9. Renal failure, status post hemodialysis. 10. NSVT:Currently stable after pacemaker RECOMMENDATIONS: Antibiotic is being managed as per Infectious Disease recommendations. off of Procardia due to hypotension. cont eliquis as long as no bleeding Antirejection medications as per Renal. Dialysis as per Renal. replace lytes prn cont resp care, O2. f/u pulm rec cont HD to be adjusted per renal . cont O2 and BIPAP as needed. pacermaker was interrogated 03/20/17 and personally reviewed. it shows normal function. will cont to monitor THANK YOU ROLAND DORSEY MD [facility] . Problems: ROLAND DORSEY MD Mar 22, 2017 08:33
[2017-03-22] MEDS: HYDROCORTISONE 100 MG INJ IV SCH ×2 (08:56→22:21)
[2017-03-22] MEDS: LIDOCAINE 5% PATCH TD SCH (08:59)
[2017-03-22] MEDS: predniSONE 5 MG TAB PO SCH (09:00)
[2017-03-22] MEDS: FLUTICASONE 0.05% 16 GM NAS SPRAY NASAL SCH ×2 (09:00→22:21)
[2017-03-22] MEDS: THIAMINE 100 MG TAB PO SCH (09:00)
[2017-03-22] MEDS: CYCLOSPORINE 25 MG CAP PO SCH ×2 (09:00→22:20)
[2017-03-22] MEDS: METOLAZONE 2.5 MG TAB PO SCH (09:01)
[2017-03-22] MEDS: APIXABAN 5 MG TABLET PO SCH ×2 (09:02→22:20)
[2017-03-22] MEDS: NIFEdipine (XL) 30 MG TAB PO SCH (09:02)
--- NOTE | 2017-03-22 09:02 | PN ---
DATE: 03/22/2017 SUBJECTIVE: The patient had hemodialysis yesterday with 2.5 liters removed, tolerated well. No oth er acute events noted. OBJECTIVE: VITAL SIGNS: Blood pressure is 152/79, temperature 97.5, pulse 60, respirations 17. HEENT: Head is normocephalic. NECK: Supple. HEART: Regular rate. LUNGS: Show diminished breath sounds at the base. ABDOMEN: Soft, nontender to palpation. No rebound or guarding. EXTREMITIES: Negative for clubbing, cyanosis, edema. DERMATOLOGIC: No rashes. MUSCULOSKELETAL: No joint effusions. NEUROLOGIC: No change in exam. MEDICATIONS: The patient's medications have been reviewed. LABORATORY DATA: Shows a white count 6.1, hemoglobin 9.4, hematocrit 30.8, platelet count is 168. Sodium 133, potassium 5.0, chloride 94, BUN 62, creatinine 2.88. ASSESSMENT AND PLAN: 1. Acute respiratory failure. The patient is currently on BiPAP at night, we will continue. Follo w up with pulmonary. 2. Sepsis, status post shock secondary to pneumonia. Continue current antibiotic regimen. 3. Nonoliguric acute kidney injury on top of chronic allograph failure. Etiology is secondary to a cute tubular necrosis. The patient is currently dialysis dependent, no evidence of recovery at this point. 4. History of end-stage renal disease status post renal transplant. The patient is currently in ac amrita kidney injury as stated above. Continue current treatment plan. Continue immunosuppressive reg imen. 5. Sinus arrhythmia, status post pacemaker. Continue to monitor. 6. Mineral bone disorder. Monitor calcium and phosphorus levels. 7. Acute encephalopathy, improving. 8. Gastrointestinal and deep vein thrombosis prophylaxis. 9. Hepatitis C. 10. History of gout. DISPOSITION: The patient is pending transfer to [facility]acute [facility] facility close to the [facility] in [place]. Follow up with case management. Dictated By: PATRIA CHANEY/BECKIE Conf#: [id number] DID#: [id number]
--- NOTE | 2017-03-22 09:02 | PN ---
DATE: 03/22/2017 SUBJECTIVE: The patient had hemodialysis yesterday with 2.5 liters removed, tolerated well. No oth er acute events noted. OBJECTIVE: VITAL SIGNS: Blood pressure is 152/79, temperature 97.5, pulse 60, respirations 17. HEENT: Head is normocephalic. NECK: Supple. HEART: Regular rate. LUNGS: Show diminished breath sounds at the base. ABDOMEN: Soft, nontender to palpation. No rebound or guarding. EXTREMITIES: Negative for clubbing, cyanosis, edema. DERMATOLOGIC: No rashes. MUSCULOSKELETAL: No joint effusions. NEUROLOGIC: No change in exam. MEDICATIONS: The patient's medications have been reviewed. LABORATORY DATA: Shows a white count 6.1, hemoglobin 9.4, hematocrit 30.8, platelet count is 168. Sodium 133, potassium 5.0, chloride 94, BUN 62, creatinine 2.88. ASSESSMENT AND PLAN: 1. Acute respiratory failure. The patient is currently on BiPAP at night, we will continue. Follo w up with pulmonary. 2. Sepsis, status post shock secondary to pneumonia. Continue current antibiotic regimen. 3. Nonoliguric acute kidney injury on top of chronic allograph failure. Etiology is secondary to a cute tubular necrosis. The patient is currently dialysis dependent, no evidence of recovery at this point. 4. History of end-stage renal disease status post renal transplant. The patient is currently in ac amrita kidney injury as stated above. Continue current treatment plan. Continue immunosuppressive reg imen. 5. Sinus arrhythmia, status post pacemaker. Continue to monitor. 6. Mineral bone disorder. Monitor calcium and phosphorus levels. 7. Acute encephalopathy, improving. 8. Gastrointestinal and deep vein thrombosis prophylaxis. 9. Hepatitis C. 10. History of gout. DISPOSITION: The patient is pending transfer to subacute intermediate facility close to the [facility] in [place]. Follow up with case management. Dictated By: PATRIA CHANEY/BECKIE Conf#: [id number] DID#: [id number]
--- NOTE | 2017-03-22 09:02 | PN ---
DATE: 03/22/2017 SUBJECTIVE: The patient had hemodialysis yesterday with 2.5 liters removed, tolerated well. No oth er acute events noted. OBJECTIVE: VITAL SIGNS: Blood pressure is 152/79, temperature 97.5, pulse 60, respirations 17. HEENT: Head is normocephalic. NECK: Supple. HEART: Regular rate. LUNGS: Show diminished breath sounds at the base. ABDOMEN: Soft, nontender to palpation. No rebound or guarding. EXTREMITIES: Negative for clubbing, cyanosis, edema. DERMATOLOGIC: No rashes. MUSCULOSKELETAL: No joint effusions. NEUROLOGIC: No change in exam. MEDICATIONS: The patient's medications have been reviewed. LABORATORY DATA: Shows a white count 6.1, hemoglobin 9.4, hematocrit 30.8, platelet count is 168. Sodium 133, potassium 5.0, chloride 94, BUN 62, creatinine 2.88. ASSESSMENT AND PLAN: 1. Acute respiratory failure. The patient is currently on BiPAP at night, we will continue. Follo w up with pulmonary. 2. Sepsis, status post shock secondary to pneumonia. Continue current antibiotic regimen. 3. Nonoliguric acute kidney injury on top of chronic allograph failure. Etiology is secondary to a cute tubular necrosis. The patient is currently dialysis dependent, no evidence of recovery at this point. 4. History of end-stage renal disease status post renal transplant. The patient is currently in ac amrita kidney injury as stated above. Continue current treatment plan. Continue immunosuppressive reg imen. 5. Sinus arrhythmia, status post pacemaker. Continue to monitor. 6. Mineral bone disorder. Monitor calcium and phosphorus levels. 7. Acute encephalopathy, improving. 8. Gastrointestinal and deep vein thrombosis prophylaxis. 9. Hepatitis C. 10. History of gout. DISPOSITION: The patient is pending transfer to subacute [facility]pc facility close to the [facility] in [place]. Follow up with case management. Dictated By: PATRIA CHANEY/BECKIE Conf#: [id number] DID#: [id number]
[2017-03-22] MEDS: BALSAM PERU/CASTOR OIL 60 GM TUBE TOP SCH (09:03)
[2017-03-22] MEDS: LIDOCAINE 5% 35 GM OINT TOP SCH ×2 (09:03→22:22)
--- NOTE | 2017-03-22 12:21 | CONS ---
Date/Time of Note Date/Time of Note DATE: 03/22/17 TIME: 12:20 Consult Date/Type/Reason Admit Date/Time Mar 01, 2017 at 13:35 Initial Consult Date 03/01/17 Type of Consultation: Pulmonary Subjective No significant changes. Patient continues on supplemental O2. Objective Vital Signs Date Time Temp Pulse Resp B/P Pulse Ox O2 Delivery O2 Flow Rate FiO2 03/22/17 12:06 60 03/22/17 11:17 98.1 17 147/63 98 03/22/17 08:00 Nasal Cannula 3.0 03/22/17 07:40 36 Intake and Output 03/21/17 03/21/17 03/22/17 15:00 23:00 07:00 Intake Total 400 ml 820 ml 60 ml Output Total 2900 ml 400 ml Balance -2500 ml 820 ml -340 ml Exam GENERAL: Elderly appearing gentleman appears comfortable at rest VITAL SIGNS: per chart NECK: Supple. No JVD or lymphadenopathy. CARDIAC EXAM: S1, S2. No added sounds or murmurs. CHEST: Diminished air entry both lung bases ABDOMEN: Soft, nontender. No guarding or rebound. EXTREMITIES: No cyanosis, clubbing or edema. NEUROLOGIC: Generalized weakness. No focal deficits. Results/Medications Result Diagram: 03/22/1716 03/22/1716 Results 24 hrs Laboratory Tests Test 03/22/17 06:16 White Blood Count 6.1 Red Blood Count 3.34 L Hemoglobin 9.4 L Hematocrit 30.8 L Mean Corpuscular Volume 92.2 Mean Corpuscular Hemoglobin 28.1 L Mean Corpuscular Hemoglobin Concent 30.5 L Red Cell Distribution Width 16.0 H Platelet Count 68 L Mean Platelet Volume 10.6 H Neutrophils % 75.2 Lymphocytes % 11.6 L Monocytes % 10.9 Eosinophils % 0.3 Basophils % 0.2 Nucleated Red Blood Cells % 0.0 Neutrophils # 4.6 Lymphocytes # 0.7 L Monocytes # 0.7 Eosinophils # 0.0 Basophils # 0.0 Nucleated Red Blood Cells # 0.0 Sodium Level 133 L Potassium Level 5.0 Chloride Level 94 L Carbon Dioxide Level 28 Anion Gap 16 Blood Urea Nitrogen 62 H Creatinine 2.88 H Glucose Level 139 # Calcium Level 8.2 L Phosphorus Level 2.9 Magnesium Level 1.7 Medications Current Medications Acetaminophen (Tylenol Tab) 500 mg Q6H PRN PO PAIN AND OR ELEVATED TEMP Last administered on 03/21/17 10:38; Admin Dose 500 MG; Start 03/01/17 at 13:30 Lidocaine (Lidocaine 5% Oint) 1 applic BID TOP Last administered on 03/22/17 09:03; Admin Dose 1 APPLIC; Start 03/01/17 at 21:00 Lidocaine (Lidoderm) 1 patch DAILY TD Last administered on 03/22/17 08:59; Admin Dose 1 PATCH; Start 03/02/17 at 09:00 Metolazone (Zaroxolyn) 2.5 mg DAILY PO Last administered on 03/22/17 09:01; Admin Dose 2.5 MG; Start 03/02/17 at 09:00 Oxycodone HCl (Roxicodone) 2.5 mg Q6H PRN PO PAIN Last administered on 04:41; Admin Dose 2.5 MG; Start 03/01/17 at 13:30 Prednisone (Prednisone) 5 mg DAILY PO Last administered on 03/22/17 09:00; Admin Dose 5 MG; Start 03/02/17 at 09:00 Eye Lubricant (Akwa Oint) 1 applic DAILY PRN RIGHT EYE ITCHING Last administered on 03/20/17 20:44; Admin Dose 1 APPLIC; Start 03/01/17 at 15:00 Bisacodyl (Dulcolax) 5 mg DAILY PRN PO CONSTIPATION Last administered on 15:48; Admin Dose 5 MG; Start 03/01/17 at 15:00 Cyclosporine (Sandimmune) 25 mg BID PO Last administered on 03/22/17 09:00; Admin Dose 25 MG; Start 03/01/17 at 21:00 Doxazosin Mesylate (Cardura) 2 mg QHS PO Last administered on 03/21/17 21:51 ; Admin Dose 2 MG; Start 03/01/17 at 21:00 Fluticasone Propionate (Flonase 0.05% Nasal) 1 spray BID NASAL Last administered on 03/22/17 09:00; Admin Dose 1 SPRAY; Start 03/01/17 at 21:00 Senna/Docusate Sodium (Senokot-S) 1 tab QHS PRN PO CONSTIPATION Last administered on 03/14/17 12:30; Admin Dose 1 TAB; Start 03/01/17 at 15:00 Thiamine HCl (Vitamin B1) 100 mg DAILY PO Last administered on 03/22/17 09:00 ; Admin Dose 100 MG; Start 03/02/17 at 09:00 Eye Lubricant (Artificial Tears Oph) 1 drop Q4H PRN BOTH EYES ITCHING EYES Last administered on 03/21/17 21:57; Admin Dose 1 DROP; Start 03/01/17 at 15: 30 Apixaban (Eliquis) 2.5 mg BID PO Last administered on 03/22/17 09:02; Admin Dose 2.5 MG; Start 03/04/17 at 21:00 Lansoprazole (Prevacid) 30 mg DAILY@06 GTB Last administered on 03/18/17 05: 10; Admin Dose 30 MG; Start 03/06/17 at 06:00 Miscellaneous Information ([facility]) This patient moraes... PRN PRN XX WOUND CARE; Start 03/10/17 at 15:00 Hydrocortisone (Solu-Cortef) 25 mg BID IV Last administered on 03/22/17 08:56 ; Admin Dose 25 MG; Start 03/13/17 at 09:00 Nifedipine (Procardia Xl) 30 mg DAILY PO Last administered on 03/22/17 09:02 ; Admin Dose 30 MG; Start 03/20/17 at 16:00 Hydralazine HCl (Apresoline) 20 mg Q8H PRN IV SBP over 170; Start 03/20/17 at 20:00 Assessment/Plan Chief Complaint/Hosp Course IMP: 1. s/p hypoxemic respiratory failure. Status post extubation 2. Chronic immunosuppression owing to history of renal transplant, however patient has renal failure and requiring hemodialysis on a regular basis. 3. Generalized deconditioning. 4. Thrombocytopenia. 5. Anemia. 6. end-stage renal failure on hemodialysis, history of renal transplant with immunosuppressive medication 7. History of recent pacemaker placement. RECS: 1. Continue supplemental O2 2. Continue bronchodilators 3. HD/UF 4. Mobilize OOB Consider fpc facility. Problems: LIT COTA MD[facility] Mar 22, 2017 12:21
--- NOTE | 2017-03-22 14:13 | CONS ---
Date/Time of Note Date/Time of Note DATE: 03/22/17 TIME: 14:12 Consult Date/Type/Reason Admit Date/Time Mar 01, 2017 at 13:35 Initial Consult Date 03/01/17 Type of Consultation: ID Objective Vital Signs Date Time Temp Pulse Resp B/P Pulse Ox O2 Delivery O2 Flow Rate FiO2 03/22/17 12:06 60 03/22/17 11:17 98.1 17 147/63 98 03/22/17 08:00 Nasal Cannula 3.0 03/22/17 07:40 36 Intake and Output 03/21/17 03/21/17 03/22/17 15:00 23:00 07:00 Intake Total 400 ml 820 ml 60 ml Output Total 2900 ml 400 ml Balance -2500 ml 820 ml -340 ml Results/Medications Result Diagram: 03/22/17 0616 03/22/17 0616 Results 24 hrs Laboratory Tests Test 03/22/17 06:16 White Blood Count 6.1 Red Blood Count 3.34 L Hemoglobin 9.4 L Hematocrit 30.8 L Mean Corpuscular Volume 92.2 Mean Corpuscular Hemoglobin 28.1 L Mean Corpuscular Hemoglobin Concent 30.5 L Red Cell Distribution Width 16.0 H Platelet Count 68 L Mean Platelet Volume 10.6 H Neutrophils % 75.2 Lymphocytes % 11.6 L Monocytes % 10.9 Eosinophils % 0.3 Basophils % 0.2 Nucleated Red Blood Cells % 0.0 Neutrophils # 4.6 Lymphocytes # 0.7 L Monocytes # 0.7 Eosinophils # 0.0 Basophils # 0.0 Nucleated Red Blood Cells # 0.0 Sodium Level 133 L Potassium Level 5.0 Chloride Level 94 L Carbon Dioxide Level 28 Anion Gap 16 Blood Urea Nitrogen 62 H Creatinine 2.88 H Glucose Level 139 # Calcium Level 8.2 L Phosphorus Level 2.9 Magnesium Level 1.7 Medications Current Medications Acetaminophen (Tylenol Tab) 500 mg Q6H PRN PO PAIN AND OR ELEVATED TEMP Last administered on 03/21/17 10:38; Admin Dose 500 MG; Start 03/01/17 at 13:30 Lidocaine (Lidocaine 5% Oint) 1 applic BID TOP Last administered on 03/22/17 09:03; Admin Dose 1 APPLIC; Start 03/01/17 at 21:00 Lidocaine (Lidoderm) 1 patch DAILY TD Last administered on 03/22/17 08:59; Admin Dose 1 PATCH; Start 03/02/17 at 09:00 Metolazone (Zaroxolyn) 2.5 mg DAILY PO Last administered on 03/22/17 09:01; Admin Dose 2.5 MG; Start 03/02/17 at 09:00 Oxycodone HCl (Roxicodone) 2.5 mg Q6H PRN PO PAIN Last administered on 04:41; Admin Dose 2.5 MG; Start 03/01/17 at 13:30 Prednisone (Prednisone) 5 mg DAILY PO Last administered on 03/22/17 09:00; Admin Dose 5 MG; Start 03/02/17 at 09:00 Eye Lubricant (Akwa Oint) 1 applic DAILY PRN RIGHT EYE ITCHING Last administered on 03/20/17 20:44; Admin Dose 1 APPLIC; Start 03/01/17 at 15:00 Bisacodyl (Dulcolax) 5 mg DAILY PRN PO CONSTIPATION Last administered on 15:48; Admin Dose 5 MG; Start 03/01/17 at 15:00 Cyclosporine (Sandimmune) 25 mg BID PO Last administered on 03/22/17 09:00; Admin Dose 25 MG; Start 03/01/17 at 21:00 Doxazosin Mesylate (Cardura) 2 mg QHS PO Last administered on 03/21/17 21:51 ; Admin Dose 2 MG; Start 03/01/17 at 21:00 Fluticasone Propionate (Flonase 0.05% Nasal) 1 spray BID NASAL Last administered on 03/22/17 09:00; Admin Dose 1 SPRAY; Start 03/01/17 at 21:00 Senna/Docusate Sodium (Senokot-S) 1 tab QHS PRN PO CONSTIPATION Last administered on 03/14/17 12:30; Admin Dose 1 TAB; Start 03/01/17 at 15:00 Thiamine HCl (Vitamin B1) 100 mg DAILY PO Last administered on 03/22/17 09:00 ; Admin Dose 100 MG; Start 03/02/17 at 09:00 Eye Lubricant (Artificial Tears Oph) 1 drop Q4H PRN BOTH EYES ITCHING EYES Last administered on 03/21/17 21:57; Admin Dose 1 DROP; Start 03/01/17 at 15: 30 Apixaban (Eliquis) 2.5 mg BID PO Last administered on 03/22/17 09:02; Admin Dose 2.5 MG; Start 03/04/17 at 21:00 Lansoprazole (Prevacid) 30 mg DAILY@06 GTB Last administered on 03/18/17 05: 10; Admin Dose 30 MG; Start 03/06/17 at 06:00 [facility] This patient moraes... PRN PRN XX WOUND CARE; Start 03/10/17 at 15:00 Hydrocortisone (Solu-Cortef) 25 mg BID IV Last administered on 03/22/17 08:56 ; Admin Dose 25 MG; Start 03/13/17 at 09:00 Nifedipine (Procardia Xl) 30 mg DAILY PO Last administered on 03/22/17 09:02 ; Admin Dose 30 MG; Start 03/20/17 at 16:00 Hydralazine HCl (Apresoline) 20 mg Q8H PRN IV SBP over 170; Start 03/20/17 at 20:00 Assessment/Plan Chief Complaint/Hosp Course SUBJECTIVE: No acute events per report, sleeping, looks comfortable, no fevers INDWELLINGS: Right chest Perm-A-Cath. PHYSICAL EXAMINATION: GENERAL: Well-developed, fragile, elderly man who is no distress. HEENT: Head atraumatic, normocephalic. Sclerae anicteric. Buccal mucosa dry. NECK: Supple. CHEST: Rise symmetrical. Breath sounds diminished to bases. HEART: S1, S2. ABDOMEN: Soft. Bowel tones present. ASSESSMENT: 1. Status post septic shock/ pneumonia 2. Status post urinary tract infection. 3. End-stage renal disease, hemodialysis dependent. 4. History of kidney transplant. 5. Sick sinus syndrome, status post permanent pacemaker placed on 02/27/2017. 6. Acute on chronic resp failure PLAN: Remains stable, off antibiotics, continue present care, anti-aspiration measures, f/u pulmonary rec-s [facility] staff Problems: MYLA CHIU NP Mar 22, 2017 14:13
[2017-03-22] MEDS: ARTIFICIAL TEARS 15 ML OPH BOTH EYES PRN (19:58)
[2017-03-22] MEDS: DOXAZOSIN 2 MG TAB PO SCH (22:20)
[2017-03-23] VITALS (29 sets, daily range): BP systolic 114–143; BP diastolic 66–82; PULSE 60–68; RESP 16–23
[2017-03-23] MEDS: OCULAR LUBRICANT 3.5 GM OPH OINT RIGHT EYE PRN (03:24)
[2017-03-23] MEDS: LANSOPRAZOLE 30 MG CAP GTB SCH (06:00)
[2017-03-23] MEDS: FLUTICASONE 0.05% 16 GM NAS SPRAY NASAL SCH ×2 (10:11→21:03)
[2017-03-23] MEDS: NIFEdipine (XL) 30 MG TAB PO SCH (10:12)
[2017-03-23] MEDS: APIXABAN 5 MG TABLET PO SCH ×2 (10:12→21:02)
[2017-03-23] MEDS: predniSONE 5 MG TAB PO SCH (10:12)
[2017-03-23] MEDS: CYCLOSPORINE 25 MG CAP PO SCH ×2 (10:13→21:01)
[2017-03-23] MEDS: THIAMINE 100 MG TAB PO SCH (10:13)
[2017-03-23] MEDS: BALSAM PERU/CASTOR OIL 60 GM TUBE TOP SCH (10:20)
[2017-03-23] MEDS: LIDOCAINE 5% 35 GM OINT TOP SCH ×2 (10:20→21:07)
--- NOTE | 2017-03-23 10:38 | PN ---
DATE: 03/23/2017 SUBJECTIVE: Patient is currently on BiPAP without any complications. The patient is pending hemodi alysis today. No other events noted. OBJECTIVE: VITAL SIGNS: Blood pressure is 125/74, temperature 97.5, pulse 60, respirations 23. HEENT: Head is normocephalic. NECK: Supple. HEART: Regular rate. LUNGS: Show diminished breath sounds at base. ABDOMEN: Soft, nontender to palpation. No rebound or guarding. EXTREMITIES: Negative for clubbing, cyanosis, no edema. DERMATOLOGIC: No rashes. MUSCULOSKELETAL: No joint effusions. NEUROLOGIC: No change in exam. MEDICATIONS: The patient's medications have been reviewed. LABORATORY DATA: Has been reviewed. No new labs. ASSESSMENT AND PLAN: 1. Acute respiratory failure. The patient is currently on BiPAP, continue. Follow up with pulmondarwin timmons. 2. Sepsis, status post shock secondary to pneumonia. The patient has completed antibiotic course. Continue to monitor off antibiotics. 3. 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 Etiology is secondary to a cute tubular necrosis. Patient is currently dialysis dependent, no evidence of recovery. 4. History of endstage renal disease, status post renal transplant. The patient is currently in ac amrita kidney injury as stated above. Continue current treatment plan. Continue immunosuppressive reg imen. 5. History of arrhythmia, status post pacemaker. Continue to monitor. 6. Mineral bone disorder. Monitor calcium and phosphorus levels. 7. Acute encephalopathy, improving. 8. History of hepatitis C. 9. Gastrointestinal and deep venous thrombosis prophylaxis. DISPOSITION: The patient is pending transfer to subacute facility close to patient's home in [facility] once a bed is available. Follow up with case management. Dictated By: PATRIA CHANEY/BECKIE Conf#: [id number] DID#: [id number]
--- NOTE | 2017-03-23 11:07 | CONS ---
Date/Time of Note Date/Time of Note DATE: 03/23/17 TIME: 11:05 Consult Date/Type/Reason Admit Date/Time Mar 01, 2017 at 13:35 Initial Consult Date 03/01/17 Type of Consultation: Pulmonary Subjective Patient remains stable no new events. Objective Vital Signs Date Time Temp Pulse Resp B/P Pulse Ox O2 Delivery O2 Flow Rate FiO2 03/23/17 10:25 60 96 30 03/23/17 08:34 4.0 03/23/17 07:15 97.5 23 125/74 03/22/17 20:00 Nasal Cannula Intake and Output 03/22/17 03/22/17 03/23/17 15:00 23:00 07:00 Intake Total 760 ml Balance 760 ml Exam GENERAL: Elderly appearing gentleman appears comfortable at rest VITAL SIGNS: per chart NECK: Supple. No JVD or lymphadenopathy. CARDIAC EXAM: S1, S2. No added sounds or murmurs. CHEST: Diminished air entry both lung bases ABDOMEN: Soft, nontender. No guarding or rebound. EXTREMITIES: No cyanosis, clubbing or edema. NEUROLOGIC: Generalized weakness. No focal deficits. Results/Medications Result Diagram: 03/22/17 0616 03/22/17 0616 Medications Current Medications Acetaminophen (Tylenol Tab) 500 mg Q6H PRN PO PAIN AND OR ELEVATED TEMP Last administered on 03/21/17 10:38; Admin Dose 500 MG; Start 03/01/17 at 13:30 Lidocaine (Lidocaine 5% Oint) 1 applic BID TOP Last administered on 03/23/17 10:20; Admin Dose 1 APPLIC; Start 03/01/17 at 21:00 Oxycodone HCl (Roxicodone) 2.5 mg Q6H PRN PO PAIN Last administered on 04:41; Admin Dose 2.5 MG; Start 03/01/17 at 13:30 Prednisone (Prednisone) 5 mg DAILY PO Last administered on 03/23/17 10:12; Admin Dose 5 MG; Start 03/02/17 at 09:00 Eye Lubricant (Akwa Oint) 1 applic DAILY PRN RIGHT EYE ITCHING Last administered on 03/23/17 03:24; Admin Dose 1 APPLIC; Start 03/01/17 at 15:00 Bisacodyl (Dulcolax) 5 mg DAILY PRN PO CONSTIPATION Last administered on 15:48; Admin Dose 5 MG; Start 03/01/17 at 15:00 Cyclosporine (Sandimmune) 25 mg BID PO Last administered on 03/23/17 10:13; Admin Dose 25 MG; Start 03/01/17 at 21:00 Doxazosin Mesylate (Cardura) 2 mg QHS PO Last administered on 03/22/17 22:20 ; Admin Dose 2 MG; Start 03/01/17 at 21:00 Fluticasone Propionate (Flonase 0.05% Nasal) 1 spray BID NASAL Last administered on 03/22/17 22:21; Admin Dose 1 SPRAY; Start 03/01/17 at 21:00 Senna/Docusate Sodium (Senokot-S) 1 tab QHS PRN PO CONSTIPATION Last administered on 03/14/17 12:30; Admin Dose 1 TAB; Start 03/01/17 at 15:00 Thiamine HCl (Vitamin B1) 100 mg DAILY PO Last administered on 03/23/17 10:13 ; Admin Dose 100 MG; Start 03/02/17 at 09:00 Eye Lubricant (Artificial Tears Oph) 1 drop Q4H PRN BOTH EYES ITCHING EYES Last administered on 03/22/17 19:58; Admin Dose 1 DROP; Start 03/01/17 at 15: 30 Apixaban (Eliquis) 2.5 mg BID PO Last administered on 03/23/17 10:12; Admin Dose 2.5 MG; Start 03/04/17 at 21:00 Lansoprazole (Prevacid) 30 mg DAILY@06 GTB Last administered on 03/18/17 05: 10; Admin Dose 30 MG; Start 03/06/17 at 06:00 Miscellaneous Information (Pending Santyl Order For Wound Care) This patient moraes... PRN PRN XX WOUND CARE; Start 03/10/17 at 15:00 Nifedipine (Procardia Xl) 30 mg DAILY PO Last administered on 03/22/17 09:02 ; Admin Dose 30 MG; Start 03/20/17 at 16:00 Hydralazine HCl (Apresoline) 20 mg Q8H PRN IV SBP over 170; Start 03/20/17 at 20:00 Lidocaine (Lidoderm) 1 patch DAILY TD ; Start 03/23/17 at 21:00; Status UNV Assessment/Plan Chief Complaint/Hosp Course IMP: 1. s/p hypoxemic respiratory failure. Status post extubation 2. Chronic immunosuppression owing to history of renal transplant, however patient has renal failure and requiring hemodialysis on a regular basis. 3. Generalized deconditioning. 4. Thrombocytopenia. 5. Anemia. 6. end-stage renal failure on hemodialysis, history of renal transplant with immunosuppressive medication 7. History of recent pacemaker placement. RECS: 1. Continue supplemental O2 2. Continue bronchodilators 3. HD/UF 4. Mobilize OOB Pending placement. C Problems: LTI COTA MD, [facility] Mar 23, 2017 11:07
--- NOTE | 2017-03-23 12:50 | PN ---
DATE: 03/23/2017 SUBJECTIVE: Patient is in hemodialysis. He is currently on BiPAP, in no distress, no fevers. No l abs this morning. He is off antibiotics. INDWELLINGS: Right chest Perm-A-Cath. PHYSICAL EXAMINATION: GENERAL: This is a fragile, chronically ill-appearing, elderly man who is in no distress. HEENT: Head atraumatic, normocephalic. Sclerae anicteric. Buccal mucosa dry. NECK: Supple, trachea midline. CHEST: Rise symmetrical. Breath sounds diminished to bases. HEART: S1, S2. ABDOMEN: Soft, bowel tones present. EXTREMITIES: Without cyanosis. ASSESSMENT: 1. Chronic respiratory failure. 2. Status post pneumonia. 3. Status post Aurora albicans urinary tract infection. 4. End-stage renal disease, hemodialysis dependent. 5. History of kidney transplant, on immunosuppressive therapy. 6. History of permanent pacemaker placement. 7. Anemia. PLAN: The patient remains unchanged. He is on BiPAP since this morning. Currently being dialyzed antibiotics were discontinued 2 days ago. No fevers. We will continue observing him. Repeat cultu res p.r.n. Dictated By: MYLA CHIU PIER HAND for VIC ARMAS/BECKIE Conf#: [id number] DID#: [id number]
--- NOTE | 2017-03-23 12:50 | PN ---
DATE: 03/23/2017 SUBJECTIVE: Patient is in hemodialysis. He is currently on BiPAP, in no distress, no fevers. No l abs this morning. He is off antibiotics. INDWELLINGS: Right chest Perm-A-Cath. PHYSICAL EXAMINATION: GENERAL: This is a fragile, chronically ill-appearing, elderly man who is in no distress. HEENT: Head atraumatic, normocephalic. Sclerae anicteric. Buccal mucosa dry. NECK: Supple, trachea midline. CHEST: Rise symmetrical. Breath sounds diminished to bases. HEART: S1, S2. ABDOMEN: Soft, bowel tones present. EXTREMITIES: Without cyanosis. ASSESSMENT: 1. Chronic respiratory failure. 2. Status post pneumonia. 3. Status post Aurora albicans urinary tract infection. 4. End-stage renal disease, hemodialysis dependent. 5. History of kidney transplant, on immunosuppressive therapy. 6. History of permanent pacemaker placement. 7. Anemia. PLAN: The patient remains unchanged. He is on BiPAP since this morning. Currently being dialyzed antibiotics were discontinued 2 days ago. No fevers. We will continue observing him. Repeat cultu res p.r.n. Dictated By: MYLA CHIU SUPPORT SERVICES MANAGER for VIC ARMAS/BECKIE Conf#: [id number] DID#: [id number]
--- NOTE | 2017-03-23 12:50 | PN ---
DATE: 03/23/2017 SUBJECTIVE: Patient is in hemodialysis. He is currently on BiPAP, in no distress, no fevers. No l abs this morning. He is off antibiotics. INDWELLINGS: Right chest Perm-A-Cath. PHYSICAL EXAMINATION: GENERAL: This is a fragile, chronically ill-appearing, elderly man who is in no distress. HEENT: Head atraumatic, normocephalic. Sclerae anicteric. Buccal mucosa dry. NECK: Supple, trachea midline. CHEST: Rise symmetrical. Breath sounds diminished to bases. HEART: S1, S2. ABDOMEN: Soft, bowel tones present. EXTREMITIES: Without cyanosis. ASSESSMENT: 1. Chronic respiratory failure. 2. Status post pneumonia. 3. Status post Aurora albicans urinary tract infection. 4. End-stage renal disease, hemodialysis dependent. 5. History of kidney transplant, on immunosuppressive therapy. 6. History of permanent pacemaker placement. 7. Anemia. PLAN: The patient remains unchanged. He is on BiPAP since this morning. Currently being dialyzed antibiotics were discontinued 2 days ago. No fevers. We will continue observing him. Repeat cultu res p.r.n. Dictated By: MYLA CHIU STRAWHAT SIZER for VIC ARMAS/BECKIE Conf#: [id number] DID#: [id number]
[2017-03-23] MEDS: EPOETIN 4000 UNITS/1 ML INJ (ESRD) SC SCH (14:47)
--- NOTE | 2017-03-23 15:27 | CONS ---
Date/Time of Note Date/Time of Note DATE: 03/23/17 TIME: 15:10 Consult Date/Type/Reason Admit Date/Time Mar 01, 2017 at 13:35 Initial Consult Date 03/01/17 Type of Consultation: cardiology Subjective CARDIOLOGY FOLLOW UP NOTE: S: Discussed with staff and rhythm strip is reviewed. Patient remains in demand ventricular pacemaker. pt has had wide complex tachycardia. he is breathing ok but intermittently asks for BIPAP he denies any cp or pressure to me. no active bleeding is reported no palpitations O: General: thin man, ON BIPAP. HEENT: NC/AT. . NECK: . no stridor. CV: RRR. systolic murmur; no gallop or rubs. chest: s/p left sided PPM, no hematoma or bleeding PULM: no wheezing mild rhonchi. GI: SOFT, NT, ND, no rebound or guarding Extremity:mild LE edema. no clubbing. neuro: awake and alert. Psych: calm and pleasant rectal: deferred : normal male Objective Vital Signs Date Time Temp Pulse Resp B/P Pulse Ox O2 Delivery O2 Flow Rate FiO2 03/23/17 13:56 62 03/23/17 12:34 98.5 20 137/79 98 03/23/17 12:11 4.0 32 03/23/17 08:00 Nasal Cannula Intake and Output 03/22/17 03/22/17 03/23/17 15:00 23:00 07:00 Intake Total 760 ml Balance 760 ml Results/Medications Result Diagram: 03/22/17 0616 03/22/17 0616 Medications Current Medications Acetaminophen (Tylenol Tab) 500 mg Q6H PRN PO PAIN AND OR ELEVATED TEMP Last administered on 03/21/17 10:38; Admin Dose 500 MG; Start 03/01/17 at 13:30 Lidocaine (Lidocaine 5% Oint) 1 applic BID TOP Last administered on 03/23/17 10:20; Admin Dose 1 APPLIC; Start 03/01/17 at 21:00 Oxycodone HCl (Roxicodone) 2.5 mg Q6H PRN PO PAIN Last administered on 04:41; Admin Dose 2.5 MG; Start 03/01/17 at 13:30 Prednisone (Prednisone) 5 mg DAILY PO Last administered on 03/23/17 10:12; Admin Dose 5 MG; Start 03/02/17 at 09:00 Eye Lubricant (Akwa Oint) 1 applic DAILY PRN RIGHT EYE ITCHING Last administered on 03/23/17 03:24; Admin Dose 1 APPLIC; Start 03/01/17 at 15:00 Bisacodyl (Dulcolax) 5 mg DAILY PRN PO CONSTIPATION Last administered on 15:48; Admin Dose 5 MG; Start 03/01/17 at 15:00 Cyclosporine (Sandimmune) 25 mg BID PO Last administered on 03/23/17 10:13; Admin Dose 25 MG; Start 03/01/17 at 21:00 Doxazosin Mesylate (Cardura) 2 mg QHS PO Last administered on 03/22/17 22:20 ; Admin Dose 2 MG; Start 03/01/17 at 21:00 Fluticasone Propionate (Flonase 0.05% Nasal) 1 spray BID NASAL Last administered on 03/22/17 22:21; Admin Dose 1 SPRAY; Start 03/01/17 at 21:00 Senna/Docusate Sodium (Senokot-S) 1 tab QHS PRN PO CONSTIPATION Last administered on 03/14/17 12:30; Admin Dose 1 TAB; Start 03/01/17 at 15:00 Thiamine HCl (Vitamin B1) 100 mg DAILY PO Last administered on 03/23/17 10:13 ; Admin Dose 100 MG; Start 03/02/17 at 09:00 Eye Lubricant (Artificial Tears Oph) 1 drop Q4H PRN BOTH EYES ITCHING EYES Last administered on 03/22/17 19:58; Admin Dose 1 DROP; Start 03/01/17 at 15: 30 Apixaban (Eliquis) 2.5 mg BID PO Last administered on 03/23/17 10:12; Admin Dose 2.5 MG; Start 03/04/17 at 21:00 Lansoprazole (Prevacid) 30 mg DAILY@06 GTB Last administered on 03/18/17 05: 10; Admin Dose 30 MG; Start 03/06/17 at 06:00 [facility] This patient moraes... PRN PRN XX WOUND CARE; Start 03/10/17 at 15:00 Nifedipine (Procardia Xl) 30 mg DAILY PO Last administered on 03/22/17t 09:02 ; Admin Dose 30 MG; Start 03/20/17 at 16:00 Hydralazine HCl (Apresoline) 20 mg Q8H PRN IV SBP over 170; Start 03/20/17 at 20:00 Lidocaine (Lidoderm) 1 patch DAILY TD ; Start 03/23/17 at 21:00 Assessment/Plan Chief Complaint/Hosp Course 1. Acute on-chronic hypoxemic, hypercapnic respiratory failure, status post intubation, now extubated 2. Sick sinus syndrome, status post permanent pacemaker. 3. Atrial fibrillation with a slow ventricular response, heart rate under control with the pacemaker. 4. Septic shock: BP has improved now 5. Pneumonia. 6. Anemia. 7. History of hepatitis C. 8. History of renal transplant. 9. Renal failure, status post hemodialysis. 10. NSVT: RECOMMENDATIONS: Antibiotic is being managed as per Infectious Disease recommendations. cont eliquis as long as no bleeding Antirejection medications as per Renal. Dialysis as per Renal. replace lytes prn cont resp care, O2. f/u pulm rec cont HD to be adjusted per renal . cont O2 and BIPAP as needed. pacermaker was interrogated 03/20/17 and personally reviewed. it shows normal function. will cont to monitor THANK YOU ROLAND DORSEY MD [facility] . Problems: ROLAND DORSEY MD Mar 23, 2017 15:27
[2017-03-23] MEDS: DOXAZOSIN 2 MG TAB PO SCH (21:01)
[2017-03-23] MEDS: LIDOCAINE 5% PATCH TD SCH (21:06)
[2017-03-24] VITALS (20 sets, daily range): BP systolic 132–170; BP diastolic 72–86; PULSE 54–97; RESP 17–20
[2017-03-24] MEDS: LANSOPRAZOLE 30 MG CAP GTB SCH (06:00)
[2017-03-24] MEDS: CYCLOSPORINE 25 MG CAP PO SCH ×2 (08:49→20:33)
[2017-03-24] MEDS: THIAMINE 100 MG TAB PO SCH (08:49)
[2017-03-24] MEDS: predniSONE 5 MG TAB PO SCH (08:49)
[2017-03-24] MEDS: NIFEdipine (XL) 30 MG TAB PO SCH (08:50)
[2017-03-24] MEDS: APIXABAN 5 MG TABLET PO SCH ×2 (08:51→20:33)
[2017-03-24] MEDS: LIDOCAINE 5% PATCH TD SCH (08:52)
[2017-03-24] MEDS: ALBUTEROL 18 GM INHALER INH PRN (08:53)
[2017-03-24] MEDS: IPRATROPIUM (HFA) 12.9 GM INHALER INH PRN (08:53)
[2017-03-24] MEDS: FLUTICASONE 0.05% 16 GM NAS SPRAY NASAL SCH ×2 (08:54→20:35)
[2017-03-24] MEDS: BALSAM PERU/CASTOR OIL 60 GM TUBE TOP SCH (09:00)
[2017-03-24] MEDS: LIDOCAINE 5% 35 GM OINT TOP SCH ×2 (09:00→20:34)
--- NOTE | 2017-03-24 09:03 | CONS ---
Date/Time of Note Date/Time of Note DATE: 03/24/17 TIME: 09:02 Consult Date/Type/Reason Admit Date/Time Mar 01, 2017 at 13:35 Initial Consult Date 03/01/17 Type of Consultation: im Subjective Patient is currently on BiPAP without any complications. The patient is pending hemodialysis today. No other events noted. OBJECTIVE: HEENT: Head is normocephalic. NECK: Supple. HEART: Regular rate. LUNGS: Show diminished breath sounds at base. ABDOMEN: Soft, nontender to palpation. No rebound or guarding. EXTREMITIES: Negative for clubbing, cyanosis, no edema. DERMATOLOGIC: No rashes. MUSCULOSKELETAL: No joint effusions. NEUROLOGIC: No change in exam. MEDICATIONS: The patient's medications have been reviewed. LABORATORY DATA: Has been reviewed. Objective Vital Signs Date Time Temp Pulse Resp B/P Pulse Ox O2 Delivery O2 Flow Rate FiO2 03/24/17 08:10 59 03/24/17 07:51 97.7 19 150/86 99 03/24/17 07:40 30 03/23/17 20:00 Nasal Cannula 4.0 Intake and Output 03/23/17 03/23/17 03/24/17 15:00 23:00 07:00 Intake Total 200 ml 1000 ml 350 ml Output Total 2700 ml Balance -2500 ml 1000 ml 350 ml Results/Medications Result Diagram: 03/24/17 0610 03/24/17 0610 Results 24 hrs Laboratory Tests Test 03/24/17 06:10 White Blood Count 4.9 Red Blood Count 3.23 L Hemoglobin 8.9 L Hematocrit 30.0 L Mean Corpuscular Volume 92.9 Mean Corpuscular Hemoglobin 27.6 L Mean Corpuscular Hemoglobin Concent 29.7 L Red Cell Distribution Width 16.3 H Platelet Count 61 L Mean Platelet Volume 11.7 H Neutrophils % 61.1 Lymphocytes % 24.1 Monocytes % 12.4 H Eosinophils % 1.0 Basophils % 0.0 Nucleated Red Blood Cells % 0.0 Neutrophils # 3.0 Lymphocytes # 1.2 Monocytes # 0.6 Eosinophils # 0.1 Basophils # 0.0 Nucleated Red Blood Cells # 0.0 Sodium Level 135 Potassium Level 5.2 H Chloride Level 98 Carbon Dioxide Level 27 Anion Gap 15 Blood Urea Nitrogen 67 H Creatinine 3.02 H Glucose Level 70 # Calcium Level 8.1 L Phosphorus Level 3.0 Magnesium Level 1.8 Medications Current Medications Acetaminophen (Tylenol Tab) 500 mg Q6H PRN PO PAIN AND OR ELEVATED TEMP Last administered on 03/21/17 10:38; Admin Dose 500 MG; Start 03/01/17 at 13:30 Lidocaine (Lidocaine 5% Oint) 1 applic BID TOP Last administered on 03/23/17 21:07; Admin Dose 1 APPLIC; Start 03/01/17 at 21:00 Oxycodone HCl (Roxicodone) 2.5 mg Q6H PRN PO PAIN Last administered on 04:41; Admin Dose 2.5 MG; Start 03/01/17 at 13:30 Prednisone (Prednisone) 5 mg DAILY PO Last administered on 03/24/17 08:49; Admin Dose 5 MG; Start 03/02/17 at 09:00 Eye Lubricant (Akwa Oint) 1 applic DAILY PRN RIGHT EYE ITCHING Last administered on 03/23/17 03:24; Admin Dose 1 APPLIC; Start 03/01/17 at 15:00 Bisacodyl (Dulcolax) 5 mg DAILY PRN PO CONSTIPATION Last administered on 15:48; Admin Dose 5 MG; Start 03/01/17 at 15:00 Cyclosporine (Sandimmune) 25 mg BID PO Last administered on 03/24/17 08:49; Admin Dose 25 MG; Start 03/01/17 at 21:00 Doxazosin Mesylate (Cardura) 2 mg QHS PO Last administered on 03/23/17 21:01 ; Admin Dose 2 MG; Start 03/01/17 at 21:00 Fluticasone Propionate (Flonase 0.05% Nasal) 1 spray BID NASAL Last administered on 03/23/17 21:03; Admin Dose 1 SPRAY; Start 03/01/17 at 21:00 Senna/Docusate Sodium (Senokot-S) 1 tab QHS PRN PO CONSTIPATION Last administered on 03/14/17 12:30; Admin Dose 1 TAB; Start 03/01/17 at 15:00 Thiamine HCl (Vitamin B1) 100 mg DAILY PO Last administered on 03/24/17 08:49 ; Admin Dose 100 MG; Start 03/02/17 at 09:00 Eye Lubricant (Artificial Tears Oph) 1 drop Q4H PRN BOTH EYES ITCHING EYES Last administered on 03/22/17 19:58; Admin Dose 1 DROP; Start 03/01/17 at 15: 30 Apixaban (Eliquis) 2.5 mg BID PO Last administered on 03/24/17 08:51; Admin Dose 2.5 MG; Start 03/04/17 at 21:00 Lansoprazole (Prevacid) 30 mg DAILY@06 GTB Last administered on 03/18/17 05: 10; Admin Dose 30 MG; Start 03/06/17 at 06:00 Miscellaneous Information (Pending Santyl Order For Wound Care) This patient moraes... PRN PRN XX WOUND CARE; Start 03/10/17 at 15:00 Nifedipine (Procardia Xl) 30 mg DAILY PO Last administered on 03/24/17 08:50 ; Admin Dose 30 MG; Start 03/20/17 at 16:00 Hydralazine HCl (Apresoline) 20 mg Q8H PRN IV SBP over 170; Start 03/20/17 at 20:00 Lidocaine (Lidoderm) 1 patch DAILY TD Last administered on 03/24/17 08:52; Admin Dose 1 PATCH; Start 03/23/17 at 21:00 Assessment/Plan Chief Complaint/Hosp Course ASSESSMENT AND PLAN: 1. Acute respiratory failure. The patient is currently on BiPAP, continue. Follow up with pulmonary. 2. Sepsis, status post shock secondary to pneumonia. The patient has completed antibiotic course. Continue to monitor off antibiotics. 3. 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 Etiology is secondary to acute tubular necrosis. Patient is currently dialysis dependent, no evidence of recovery. 4. History of endstage renal disease, status post renal transplant. The patient is currently in acute kidney injury as stated above. Continue current treatment plan. Continue immunosuppressive regimen. 5. History of arrhythmia, status post pacemaker. Continue to monitor. 6. Mineral bone disorder. Monitor calcium and phosphorus levels. 7. Acute encephalopathy, improving. 8. History of hepatitis C. 9. Gastrointestinal and deep venous thrombosis prophylaxis. DISPOSITION: The patient is pending transfer to subacute facility close to patient's home in [place] once a bed is available. Follow up with case management. Problems: SWEETIE ANDERSON MD Mar 24, 2017 09:03
[2017-03-24] MEDS: ARTIFICIAL TEARS 15 ML OPH BOTH EYES PRN ×2 (10:49→20:36)
--- NOTE | 2017-03-24 12:00 | CONS ---
Date/Time of Note Date/Time of Note DATE: 03/24/17 TIME: 11:59 Consult Date/Type/Reason Admit Date/Time Mar 01, 2017 at 13:35 Initial Consult Date 03/01/17 Type of Consultation: Pulmonary Subjective No significant changes. Comfortable this morning. Objective Vital Signs Date Time Temp Pulse Resp B/P Pulse Ox O2 Delivery O2 Flow Rate FiO2 03/24/17 11:54 97.6 61 18 170/86 99 03/24/17 08:00 Nasal Cannula 4.0 03/24/17 07:40 30 Intake and Output 03/23/17 03/23/17 03/24/17 15:00 23:00 07:00 Intake Total 200 ml 1000 ml 350 ml Output Total 2700 ml Balance -2500 ml 1000 ml 350 ml Exam GENERAL: Elderly gentleman comfortable at rest VITAL SIGNS: per chart NECK: Supple. No JVD or lymphadenopathy. CARDIAC EXAM: S1, S2. No added sounds or murmurs. CHEST: clear bilaterally, No added sounds, rales or wheezes ABDOMEN: Soft, nontender. No guarding or rebound. EXTREMITIES: No cyanosis, clubbing or edema. NEUROLOGIC: Generalized weakness. No focal deficits. Results/Medications Result Diagram: 03/24/17 0610 03/24/17 0610 Results 24 hrs Laboratory Tests Test 03/24/17 06:10 White Blood Count 4.9 Red Blood Count 3.23 L Hemoglobin 8.9 L Hematocrit 30.0 L Mean Corpuscular Volume 92.9 Mean Corpuscular Hemoglobin 27.6 L Mean Corpuscular Hemoglobin Concent 29.7 L Red Cell Distribution Width 16.3 H Platelet Count 61 L Mean Platelet Volume 11.7 H Neutrophils % 61.1 Lymphocytes % 24.1 Monocytes % 12.4 H Eosinophils % 1.0 Basophils % 0.0 Nucleated Red Blood Cells % 0.0 Neutrophils # 3.0 Lymphocytes # 1.2 Monocytes # 0.6 Eosinophils # 0.1 Basophils # 0.0 Nucleated Red Blood Cells # 0.0 Sodium Level 135 Potassium Level 5.2 H Chloride Level 98 Carbon Dioxide Level 27 Anion Gap 15 Blood Urea Nitrogen 67 H Creatinine 3.02 H Glucose Level 70 # Calcium Level 8.1 L Phosphorus Level 3.0 Magnesium Level 1.8 Medications Current Medications Acetaminophen (Tylenol Tab) 500 mg Q6H PRN PO PAIN AND OR ELEVATED TEMP Last administered on 03/21/17 10:38; Admin Dose 500 MG; Start 03/01/17 at 13:30 Lidocaine (Lidocaine 5% Oint) 1 applic BID TOP Last administered on 03/23/17 21:07; Admin Dose 1 APPLIC; Start 03/01/17 at 21:00 Oxycodone HCl (Roxicodone) 2.5 mg Q6H PRN PO PAIN Last administered on 04:41; Admin Dose 2.5 MG; Start 03/01/17 at 13:30 Prednisone (Prednisone) 5 mg DAILY PO Last administered on 03/24/17 08:49; Admin Dose 5 MG; Start 03/02/17 at 09:00 Eye Lubricant (Akwa Oint) 1 applic DAILY PRN RIGHT EYE ITCHING Last administered on 03/23/17 03:24; Admin Dose 1 APPLIC; Start 03/01/17 at 15:00 Bisacodyl (Dulcolax) 5 mg DAILY PRN PO CONSTIPATION Last administered on 15:48; Admin Dose 5 MG; Start 03/01/17 at 15:00 Cyclosporine (Sandimmune) 25 mg BID PO Last administered on 03/24/17 08:49; Admin Dose 25 MG; Start 03/01/17 at 21:00 Doxazosin Mesylate (Cardura) 2 mg QHS PO Last administered on 03/23/17 21:01 ; Admin Dose 2 MG; Start 03/01/17 at 21:00 Fluticasone Propionate (Flonase 0.05% Nasal) 1 spray BID NASAL Last administered on 03/23/17 21:03; Admin Dose 1 SPRAY; Start 03/01/17 at 21:00 Senna/Docusate Sodium (Senokot-S) 1 tab QHS PRN PO CONSTIPATION Last administered on 03/14/17 12:30; Admin Dose 1 TAB; Start 03/01/17 at 15:00 Thiamine HCl (Vitamin B1) 100 mg DAILY PO Last administered on 03/24/17 08:49 ; Admin Dose 100 MG; Start 03/02/17 at 09:00 Eye Lubricant (Artificial Tears Oph) 1 drop Q4H PRN BOTH EYES ITCHING EYES Last administered on 03/24/17 10:49; Admin Dose 1 DROP; Start 03/01/17 at 15: 30 Apixaban (Eliquis) 2.5 mg BID PO Last administered on 03/24/17 08:51; Admin Dose 2.5 MG; Start 03/04/17 at 21:00 Lansoprazole (Prevacid) 30 mg DAILY@06 GTB Last administered on 03/18/17 05: 10; Admin Dose 30 MG; Start 03/06/17 at 06:00 Miscellaneous Information (Pending [facility] Order For Wound Care) This patient moraes... PRN PRN XX WOUND CARE; Start 03/10/17 at 15:00 Nifedipine (Procardia Xl) 30 mg DAILY PO Last administered on 03/24/17 08:50 ; Admin Dose 30 MG; Start 03/20/17 at 16:00 Hydralazine HCl (Apresoline) 20 mg Q8H PRN IV SBP over 170; Start 03/20/17 at 20:00 Lidocaine (Lidoderm) 1 patch DAILY TD Last administered on 03/24/17 08:52; Admin Dose 1 PATCH; Start 03/23/17 at 21:00 Assessment/Plan Chief Complaint/Hosp Course IMP: 1. s/p hypoxemic respiratory failure. Status post extubation 2. Chronic immunosuppression owing to history of renal transplant, however patient has renal failure and requiring hemodialysis on a regular basis. 3. Generalized deconditioning. 4. Thrombocytopenia. 5. Anemia. 6. end-stage renal failure on hemodialysis, history of renal transplant with immunosuppressive medication 7. History of recent pacemaker placement. RECS: 1. Continue supplemental O2 2. Continue bronchodilators 3. HD/UF 4. Mobilize OOB Continue current supportive care. Placement pending. Problems: LIT COTA MD, [facility] Mar 24, 2017 12:00
--- NOTE | 2017-03-24 12:15 | CONS ---
Date/Time of Note Date/Time of Note DATE: 03/24/17 TIME: 12:11 Assessment/Plan Assessment/Plan Chief Complaint/Hosp Course ID PROGRESS NOTE CURRENT ABX: DAY # => OFF ABX s/p Vanco IV, Merrem, Diflucan 24H INTERVAL SUMMARY * Lethargic, s/p HD yesterday, BIPAP PRN * No fevers, WBC 4.9 Physical Exam Physical Exam Constitutional: VSS, NAD HEENT: ETT-> Secure to face and vent Neck: Supple, full ROM Respiratory: Clear anterior, vented Cardiovascular: nl pulses, regular rate and rhythm Gastrointestinal: Soft, NT Extremities: Warm Neurological: Appears grossly intact ID ASSESSMENT 66 yo M admit with: 1. Sepsis on admission => RESOLVED, s/p full ABX course, now stable OFF ABX 2. S/P PNA 3. Acute respiratory failure,=> BIPAP PRN 4. s/p Aurora albicans urinary tract infection. 5. End-stage renal disease, hemodialysis dependent. 6. History of kidney transplant. 7. History of vancomycin-resistant enterococcus stool colonization. 8. Atrial fibrillation with slow ventricular response, status post permanent pacemaker placement on 02/27/2017. (- )MRSA Nares ABX ALLERGIES: ERYTHROMYCIN CURRENT ABX: # => OFF ABX s/p Vanco IV, Merrem, Diflucan ID RECOMMENDATIONS 1. Continue to observe off ABX, monitor for clinical indicators for recurrent sepsis 2. May DC OFF ABX when cleared by primary . . . Problems: Consultation Date/Type/Reason Admit Date/Time Mar 01, 2017 at 13:35 Initial Consult Date 03/01/17 Type of Consultation: ID Exam/Review of Systems Vital Signs Vitals Vital Signs Date Time Temp Pulse Resp B/P Pulse Ox O2 Delivery O2 Flow Rate FiO2 03/24/17 11:54 97.6 61 18 170/86 99 03/24/17 08:00 Nasal Cannula 4.0 03/24/17 07:40 30 Intake and Output 03/23/17 03/23/17 03/24/17 15:00 23:00 07:00 Intake Total 200 ml 1000 ml 350 ml Output Total 2700 ml Balance -2500 ml 1000 ml 350 ml Results Result Diagram: 03/24/17 0610 03/24/17 0610 Results 24 hrs Laboratory Tests Test 03/24/17 06:10 White Blood Count 4.9 Red Blood Count 3.23 L Hemoglobin 8.9 L Hematocrit 30.0 L Mean Corpuscular Volume 92.9 Mean Corpuscular Hemoglobin 27.6 L Mean Corpuscular Hemoglobin Concent 29.7 L Red Cell Distribution Width 16.3 H Platelet Count 61 L Mean Platelet Volume 11.7 H Neutrophils % 61.1 Lymphocytes % 24.1 Monocytes % 12.4 H Eosinophils % 1.0 Basophils % 0.0 Nucleated Red Blood Cells % 0.0 Neutrophils # 3.0 Lymphocytes # 1.2 Monocytes # 0.6 Eosinophils # 0.1 Basophils # 0.0 Nucleated Red Blood Cells # 0.0 Sodium Level 135 Potassium Level 5.2 H Chloride Level 98 Carbon Dioxide Level 27 Anion Gap 15 Blood Urea Nitrogen 67 H Creatinine 3.02 H Glucose Level 70 # Calcium Level 8.1 L Phosphorus Level 3.0 Magnesium Level 1.8 Medications Medications Current Medications Acetaminophen (Tylenol Tab) 500 mg Q6H PRN PO PAIN AND OR ELEVATED TEMP Last administered on 03/21/17 10:38; Admin Dose 500 MG; Start 03/01/17 at 13:30 Lidocaine (Lidocaine 5% Oint) 1 applic BID TOP Last administered on 03/23/17 21:07; Admin Dose 1 APPLIC; Start 03/01/17 at 21:00 Oxycodone HCl (Roxicodone) 2.5 mg Q6H PRN PO PAIN Last administered on 04:41; Admin Dose 2.5 MG; Start 03/01/17 at 13:30 Prednisone (Prednisone) 5 mg DAILY PO Last administered on 03/24/17 08:49; Admin Dose 5 MG; Start 03/02/17 at 09:00 Eye Lubricant (Akwa Oint) 1 applic DAILY PRN RIGHT EYE ITCHING Last administered on 03/23/17 03:24; Admin Dose 1 APPLIC; Start 03/01/17 at 15:00 Bisacodyl (Dulcolax) 5 mg DAILY PRN PO CONSTIPATION Last administered on 15:48; Admin Dose 5 MG; Start 03/01/17 at 15:00 Cyclosporine (Sandimmune) 25 mg BID PO Last administered on 03/24/17 08:49; Admin Dose 25 MG; Start 03/01/17 at 21:00 Doxazosin Mesylate (Cardura) 2 mg QHS PO Last administered on 03/23/17 21:01 ; Admin Dose 2 MG; Start 03/01/17 at 21:00 Fluticasone Propionate (Flonase 0.05% Nasal) 1 spray BID NASAL Last administered on 03/23/17 21:03; Admin Dose 1 SPRAY; Start 03/01/17 at 21:00 Senna/Docusate Sodium (Senokot-S) 1 tab QHS PRN PO CONSTIPATION Last administered on 03/14/17 12:30; Admin Dose 1 TAB; Start 03/01/17 at 15:00 Thiamine HCl (Vitamin B1) 100 mg DAILY PO Last administered on 03/24/17 08:49 ; Admin Dose 100 MG; Start 03/02/17 at 09:00 Eye Lubricant (Artificial Tears Oph) 1 drop Q4H PRN BOTH EYES ITCHING EYES Last administered on 03/24/17 10:49; Admin Dose 1 DROP; Start 03/01/17 at 15: 30 Apixaban (Eliquis) 2.5 mg BID PO Last administered on 03/24/17 08:51; Admin Dose 2.5 MG; Start 03/04/17 at 21:00 Lansoprazole (Prevacid) 30 mg DAILY@06 GTB Last administered on 03/18/17 05: 10; Admin Dose 30 MG; Start 03/06/17 at 06:00 Miscellaneous Information (Pending [facility] Order For Wound Care) This patient moraes... PRN PRN XX WOUND CARE; Start 03/10/17 at 15:00 Nifedipine (Procardia Xl) 30 mg DAILY PO Last administered on 03/24/17 08:50 ; Admin Dose 30 MG; Start 03/20/17 at 16:00 Hydralazine HCl (Apresoline) 20 mg Q8H PRN IV SBP over 170; Start 03/20/17 at 20:00 Lidocaine (Lidoderm) 1 patch DAILY TD Last administered on 03/24/17 08:52; Admin Dose 1 PATCH; Start 03/23/17 at 21:00 LEVI QUEZADA NP Mar 24, 2017 12:15
[2017-03-24] MEDS: DOXAZOSIN 2 MG TAB PO SCH (20:33)
[2017-03-24] MEDS: oxyCODONE 5 MG TAB PO PRN (20:40)
[2017-03-25] VITALS (27 sets, daily range): BP systolic 102–152; BP diastolic 60–81; PULSE 59–78; RESP 17–19
[2017-03-25] MEDS: OCULAR LUBRICANT 3.5 GM OPH OINT RIGHT EYE PRN ×2 (01:01→22:52)
[2017-03-25] MEDS: oxyCODONE 5 MG TAB PO PRN ×3 (04:44→22:32)
[2017-03-25] MEDS: LANSOPRAZOLE 30 MG CAP GTB SCH (04:45)
[2017-03-25] MEDS: LIDOCAINE 5% 35 GM OINT TOP SCH ×2 (09:03→20:38)
[2017-03-25] MEDS: FLUTICASONE 0.05% 16 GM NAS SPRAY NASAL SCH ×2 (09:03→20:31)
[2017-03-25] MEDS: CYCLOSPORINE 25 MG CAP PO SCH ×2 (09:04→20:28)
[2017-03-25] MEDS: NIFEdipine (XL) 30 MG TAB PO SCH (09:04)
[2017-03-25] MEDS: LIDOCAINE 5% PATCH TD SCH (09:04)
[2017-03-25] MEDS: APIXABAN 5 MG TABLET PO SCH ×2 (09:05→20:28)
[2017-03-25] MEDS: predniSONE 5 MG TAB PO SCH (09:05)
[2017-03-25] MEDS: THIAMINE 100 MG TAB PO SCH (09:05)
[2017-03-25] MEDS: BALSAM PERU/CASTOR OIL 60 GM TUBE TOP SCH (09:05)
--- NOTE | 2017-03-25 10:32 | CONS ---
Date/Time of Note Date/Time of Note DATE: 03/25/17 TIME: 10:31 Consult Date/Type/Reason Admit Date/Time Mar 01, 2017 at 13:35 Initial Consult Date 03/01/17 Type of Consultation: Pulmonary Subjective No new events. Sitting up in bed on room air. Objective Vital Signs Date Time Temp Pulse Resp B/P Pulse Ox O2 Delivery O2 Flow Rate FiO2 03/25/17 08:06 60 03/25/17 07:51 97.7 19 143/80 100 03/25/17 04:47 30 03/24/17 20:00 Nasal Cannula 4.0 Intake and Output 03/24/17 03/24/17 03/25/17 15:00 23:00 07:00 Intake Total 200 ml Balance 200 ml Exam GENERAL: Elderly gentleman comfortable at rest VITAL SIGNS: per chart NECK: Supple. No JVD or lymphadenopathy. CARDIAC EXAM: S1, S2. No added sounds or murmurs. CHEST: clear bilaterally, No added sounds, rales or wheezes ABDOMEN: Soft, nontender. No guarding or rebound. EXTREMITIES: No cyanosis, clubbing or edema. NEUROLOGIC: Generalized weakness. No focal deficits. Results/Medications Result Diagram: 03/24/17 0610 03/24/17 0610 Medications Current Medications Acetaminophen (Tylenol Tab) 500 mg Q6H PRN PO PAIN AND OR ELEVATED TEMP Last administered on 03/21/17 10:38; Admin Dose 500 MG; Start 03/01/17 at 13:30 Lidocaine (Lidocaine 5% Oint) 1 applic BID TOP Last administered on 03/25/17 09:03; Admin Dose 1 APPLIC; Start 03/01/17 at 21:00 Oxycodone HCl (Roxicodone) 2.5 mg Q6H PRN PO PAIN Last administered on 04:44; Admin Dose 2.5 MG; Start 03/01/17 at 13:30 Prednisone (Prednisone) 5 mg DAILY PO Last administered on 03/25/17 09:05; Admin Dose 5 MG; Start 03/02/17 at 09:00 Eye Lubricant (Akwa Oint) 1 applic DAILY PRN RIGHT EYE ITCHING Last administered on 03/25/17 01:01; Admin Dose 1 APPLIC; Start 03/01/17 at 15:00 Bisacodyl (Dulcolax) 5 mg DAILY PRN PO CONSTIPATION Last administered on 15:48; Admin Dose 5 MG; Start 03/01/17 at 15:00 Cyclosporine (Sandimmune) 25 mg BID PO Last administered on 03/25/17 09:04; Admin Dose 25 MG; Start 03/01/17 at 21:00 Doxazosin Mesylate (Cardura) 2 mg QHS PO Last administered on 03/24/17 20:33 ; Admin Dose 2 MG; Start 03/01/17 at 21:00 Fluticasone Propionate (Flonase 0.05% Nasal) 1 spray BID NASAL Last administered on 03/25/17 09:03; Admin Dose 1 SPRAY; Start 03/01/17 at 21:00 Senna/Docusate Sodium (Senokot-S) 1 tab QHS PRN PO CONSTIPATION Last administered on 03/14/17 12:30; Admin Dose 1 TAB; Start 03/01/17 at 15:00 Thiamine HCl (Vitamin B1) 100 mg DAILY PO Last administered on 03/25/17 09:05 ; Admin Dose 100 MG; Start 03/02/17 at 09:00 Eye Lubricant (Artificial Tears Oph) 1 drop Q4H PRN BOTH EYES ITCHING EYES Last administered on 03/24/17 20:36; Admin Dose 1 DROP; Start 03/01/17 at 15: 30 Apixaban (Eliquis) 2.5 mg BID PO Last administered on 03/25/17 09:05; Admin Dose 2.5 MG; Start 03/04/17 at 21:00 Lansoprazole (Prevacid) 30 mg DAILY@06 GTB Last administered on 03/18/17 05: 10; Admin Dose 30 MG; Start 03/06/17 at 06:00 Miscellaneous Information (Pending [facility] Order For Wound Care) This patient moraes... PRN PRN XX WOUND CARE; Start 03/10/17 at 15:00 Nifedipine (Procardia Xl) 30 mg DAILY PO Last administered on 03/25/17 09:04 ; Admin Dose 30 MG; Start 03/20/17 at 16:00 Hydralazine HCl (Apresoline) 20 mg Q8H PRN IV SBP over 170; Start 03/20/17 at 20:00 Lidocaine (Lidoderm) 1 patch DAILY TD Last administered on 03/25/17t 09:04; Admin Dose 1 PATCH; Start 03/23/17 at 21:00 Assessment/Plan Chief Complaint/Hosp Course IMP: 1. s/p hypoxemic respiratory failure. Status post extubation 2. Chronic immunosuppression owing to history of renal transplant, however patient has renal failure and requiring hemodialysis on a regular basis. 3. Generalized deconditioning. 4. Thrombocytopenia. 5. Anemia. 6. end-stage renal failure on hemodialysis, history of renal transplant with immunosuppressive medication 7. History of recent pacemaker placement. RECS: 1. Continue supplemental O2 2. Continue bronchodilators 3. HD/UF 4. Mobilize OOB Continue current supportive care. Placement pending. We will sign off. Problems: LIT COTA MD, [facility] Mar 25, 2017 10:32
--- NOTE | 2017-03-25 11:59 | CONS ---
Date/Time of Note Date/Time of Note DATE: 03/25/17 TIME: 11:58 Consult Date/Type/Reason Admit Date/Time Mar 01, 2017 at 13:35 Initial Consult Date 03/01/17 Type of Consultation: neph Subjective tolerated hd without complication. poc reviewed [facility] de los santos. OBJECTIVE: HEENT: Head is normocephalic. NECK: Supple. HEART: Regular rate. LUNGS: Show diminished breath sounds at base. ABDOMEN: Soft, nontender to palpation. No rebound or guarding. EXTREMITIES: Negative for clubbing, cyanosis, no edema. DERMATOLOGIC: No rashes. MUSCULOSKELETAL: No joint effusions. NEUROLOGIC: No change in exam. MEDICATIONS: The patient's medications have been reviewed. Objective Vital Signs Date Time Temp Pulse Resp B/P Pulse Ox O2 Delivery O2 Flow Rate FiO2 03/25/17 11:13 97.7 60 17 136/76 97 03/25/17 04:47 30 03/24/17 20:00 Nasal Cannula 4.0 Intake and Output 03/24/17 03/24/17 03/25/17 15:00 23:00 07:00 Intake Total 200 ml Balance 200 ml Results/Medications Result Diagram: 03/24/17 0610 03/24/17 0610 Medications Current Medications Acetaminophen (Tylenol Tab) 500 mg Q6H PRN PO PAIN AND OR ELEVATED TEMP Last administered on 03/21/17 10:38; Admin Dose 500 MG; Start 03/01/17 at 13:30 Lidocaine (Lidocaine 5% Oint) 1 applic BID TOP Last administered on 03/25/17 09:03; Admin Dose 1 APPLIC; Start 03/01/17 at 21:00 Oxycodone HCl (Roxicodone) 2.5 mg Q6H PRN PO PAIN Last administered on 04:44; Admin Dose 2.5 MG; Start 03/01/17 at 13:30 Prednisone (Prednisone) 5 mg DAILY PO Last administered on 03/25/17 09:05; Admin Dose 5 MG; Start 03/02/17 at 09:00 Eye Lubricant (Akwa Oint) 1 applic DAILY PRN RIGHT EYE ITCHING Last administered on 03/25/17 01:01; Admin Dose 1 APPLIC; Start 03/01/17 at 15:00 Bisacodyl (Dulcolax) 5 mg DAILY PRN PO CONSTIPATION Last administered on 15:48; Admin Dose 5 MG; Start 03/01/17 at 15:00 Cyclosporine (Sandimmune) 25 mg BID PO Last administered on 03/25/17 09:04; Admin Dose 25 MG; Start 03/01/17 at 21:00 Doxazosin Mesylate (Cardura) 2 mg QHS PO Last administered on 03/24/17 20:33 ; Admin Dose 2 MG; Start 03/01/17 at 21:00 Fluticasone Propionate (Flonase 0.05% Nasal) 1 spray BID NASAL Last administered on 03/25/17 09:03; Admin Dose 1 SPRAY; Start 03/01/17 at 21:00 Senna/Docusate Sodium (Senokot-S) 1 tab QHS PRN PO CONSTIPATION Last administered on 03/14/17 12:30; Admin Dose 1 TAB; Start 03/01/17 at 15:00 Thiamine HCl (Vitamin B1) 100 mg DAILY PO Last administered on 03/25/17 09:05 ; Admin Dose 100 MG; Start 03/02/17 at 09:00 Eye Lubricant (Artificial Tears Oph) 1 drop Q4H PRN BOTH EYES ITCHING EYES Last administered on 03/24/17 20:36; Admin Dose 1 DROP; Start 03/01/17 at 15: 30 Apixaban (Eliquis) 2.5 mg BID PO Last administered on 03/25/17 09:05; Admin Dose 2.5 MG; Start 03/04/17 at 21:00 Lansoprazole (Prevacid) 30 mg DAILY@06 GTB Last administered on 03/18/17 05: 10; Admin Dose 30 MG; Start 03/06/17 at 06:00 Miscellaneous Information (Pending [facility] Order For Wound Care) This patient moraes... PRN PRN XX WOUND CARE; Start 03/10/17 at 15:00 Nifedipine (Procardia Xl) 30 mg DAILY PO Last administered on 03/25/17 09:04 ; Admin Dose 30 MG; Start 03/20/17 at 16:00 Hydralazine HCl (Apresoline) 20 mg Q8H PRN IV SBP over 170; Start 03/20/17 at 20:00 Lidocaine (Lidoderm) 1 patch DAILY TD Last administered on 03/25/17t 09:04; Admin Dose 1 PATCH; Start 03/23/17 at 21:00 Assessment/Plan Chief Complaint/Hosp Course ASSESSMENT AND PLAN: 1. Acute respiratory failure. The patient is currently on BiPAP, continue. Follow up with pulmonary. 2. Sepsis, status post shock secondary to pneumonia. The patient has completed antibiotic course. Continue to monitor off antibiotics. 3. 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 Etiology is secondary to acute tubular necrosis. Patient is currently dialysis dependent, no evidence of recovery. 4. History of endstage renal disease, status post renal transplant. The patient is currently in acute kidney injury as stated above. Continue current treatment plan. Continue immunosuppressive regimen. 5. History of arrhythmia, status post pacemaker. Continue to monitor. 6. Mineral bone disorder. Monitor calcium and phosphorus levels. 7. Acute encephalopathy, improving. 8. History of hepatitis C. 9. Gastrointestinal and deep venous thrombosis prophylaxis. DISPOSITION: The patient is pending transfer to subacute facility close to patient's home in [place] once a bed is available. Follow up with case management. Problems: SWEETIE ANDERSON MD Mar 25, 2017 11:59
[2017-03-25] MEDS: ALBUTEROL 18 GM INHALER INH PRN (14:26)
[2017-03-25] MEDS: ARTIFICIAL TEARS 15 ML OPH BOTH EYES PRN (14:26)
[2017-03-25] MEDS: IPRATROPIUM (HFA) 12.9 GM INHALER INH PRN (14:26)
--- NOTE | 2017-03-25 18:28 | RADRPT ---
PROCEDURE: XR Chest. CLINICAL INDICATION: Dyspnea. TECHNIQUE: AP semi upright. COMPARISON: CR PORT CHEST 05/18/2009 FINDINGS: Right internal jugular dialysis catheter tips overlie the mid superior vena cava without evidence of a pneumothorax. A left-sided single chamber AICD is present with lead overlying the right ventricl e. The cardiac silhouette is slightly prominent. The lungs are hypoinflated. Bibasilar atelectasis a nd small pleural effusions are present. There is mild pulmonary edema. Marked degenerative atrophic changes of the right humeral head and glenoid are present. Changes consistent with bilateral rotator cuff pathology is demonstrated. IMPRESSION: 1. Mild pulmonary edema with small bilateral pleural effusions and bibasilar atelectasis. 2. Mildly prominent cardiac size. 3. Right internal jugular dialysis catheter in satisfactory position. 4. Marked degenerative atrophic changes of the right humeral head and glenoid. 5. Chronic bilateral rotator cuff pathology. RPTAT: HRSR Physician Olivia Date Time Electronically viewed and signed by Physician Olivia on 03/25/2017 18:28 RR/
--- NOTE | 2017-03-25 19:43 | CONS ---
Date/Time of Note Date/Time of Note DATE: 03/25/17 TIME: 19:42 Assessment/Plan Assessment/Plan Chief Complaint/Hosp Course ID PROGRESS NOTE CURRENT ABX: DAY # => OFF ABX s/p Vanco IV, Merrem, Diflucan 24H INTERVAL SUMMARY * Clincally stable, sleeping, BIPAP PRN * No fevers, WBC 4.9 Physical Exam Physical Exam Constitutional: VSS, NAD HEENT:BIPAP Neck: Supple, full ROM Respiratory: Clear anterior, vented Cardiovascular: nl pulses, regular rate and rhythm Gastrointestinal: Soft, NT Extremities: Warm Neurological: Appears grossly intact ID ASSESSMENT 66 yo M admit with: 1. Sepsis on admission => RESOLVED, s/p full ABX course, now stable OFF ABX 2. S/P PNA 3. Acute respiratory failure,=> BIPAP PRN 4. s/p Aurora albicans urinary tract infection. 5. End-stage renal disease, hemodialysis dependent. 6. History of kidney transplant. 7. History of vancomycin-resistant enterococcus stool colonization. 8. Atrial fibrillation with slow ventricular response, status post permanent pacemaker placement on 02/27/2017. (- )MRSA Nares ABX ALLERGIES: ERYTHROMYCIN CURRENT ABX: # => OFF ABX s/p Vanco IV, Merrem, Diflucan ID RECOMMENDATIONS 1. Continue to observe off ABX, monitor for clinical indicators for recurrent sepsis 2. May DC OFF ABX when cleared by primary . . . Problems: Consultation Date/Type/Reason Admit Date/Time Mar 01, 2017 at 13:35 Initial Consult Date 03/01/17 Type of Consultation: ID Exam/Review of Systems Vital Signs Vitals Vital Signs Date Time Temp Pulse Resp B/P Pulse Ox O2 Delivery O2 Flow Rate FiO2 03/25/17 16:12 60 03/25/17 15:31 98.1 19 144/80 98 03/25/17 04:47 30 03/24/17 20:00 Nasal Cannula 4.0 Intake and Output 03/24/17 03/24/17 03/25/17 15:00 23:00 07:00 Intake Total 200 ml Balance 200 ml Results Result Diagram: 03/24/17 0610 03/24/17 0610 Results 24 hrs Laboratory Tests Test 03/25/17 12:30 Blood Gas Specimen Source Blood arterial Arterial Blood Date Drawn 03/25/2017 4:05:41 PM Arterial Blood pH (Temp corrected) 7.360 Arterial Blood pCO2 (Temp correct) 48.7 H Arterial Blood pO2 (Temp corrected) 95.3 Arterial Blood HCO3 26.9 H Arterial Blood Base Excess 1.0 Arterial Blood Oxygen Saturation 96.7 Sly Test ACCEPTAB Arterial Blood Gas Puncture Site Right Radial Arterial Blood Carboxyhemoglobin 0.3 Arterial Blood Methemoglobin 0.2 Blood Gas A-a O2 Differential 61.4 H Oxyhemoglobin Percent 96.2 Total Hemoglobin 11.1 L Blood Gas Temperature 37.0 Blood Gas Modality NASAL CANNULA FiO2 30.0 Blood Gas Notified Whom CW Blood Gas Notified Time 03/25/2017 4:19:35 PM Medications Medications Current Medications Acetaminophen (Tylenol Tab) 500 mg Q6H PRN PO PAIN AND OR ELEVATED TEMP Last administered on 03/21/17 10:38; Admin Dose 500 MG; Start 03/01/17 at 13:30 Lidocaine (Lidocaine 5% Oint) 1 applic BID TOP Last administered on 03/25/17 09:03; Admin Dose 1 APPLIC; Start 03/01/17 at 21:00 Oxycodone HCl (Roxicodone) 2.5 mg Q6H PRN PO PAIN Last administered on 17:02; Admin Dose 2.5 MG; Start 03/01/17 at 13:30 Prednisone (Prednisone) 5 mg DAILY PO Last administered on 03/25/17 09:05; Admin Dose 5 MG; Start 03/02/17 at 09:00 Eye Lubricant (Akwa Oint) 1 applic DAILY PRN RIGHT EYE ITCHING Last administered on 03/25/17 01:01; Admin Dose 1 APPLIC; Start 03/01/17 at 15:00 Bisacodyl (Dulcolax) 5 mg DAILY PRN PO CONSTIPATION Last administered on 15:48; Admin Dose 5 MG; Start 03/01/17 at 15:00 Cyclosporine (Sandimmune) 25 mg BID PO Last administered on 03/25/17 09:04; Admin Dose 25 MG; Start 03/01/17 at 21:00 Doxazosin Mesylate (Cardura) 2 mg QHS PO Last administered on 03/24/17 20:33 ; Admin Dose 2 MG; Start 03/01/17 at 21:00 Fluticasone Propionate (Flonase 0.05% Nasal) 1 spray BID NASAL Last administered on 03/25/17 09:03; Admin Dose 1 SPRAY; Start 03/01/17 at 21:00 Senna/Docusate Sodium (Senokot-S) 1 tab QHS PRN PO CONSTIPATION Last administered on 03/14/17 12:30; Admin Dose 1 TAB; Start 03/01/17 at 15:00 Thiamine HCl (Vitamin B1) 100 mg DAILY PO Last administered on 03/25/17 09:05 ; Admin Dose 100 MG; Start 03/02/17 at 09:00 Eye Lubricant (Artificial Tears Oph) 1 drop Q4H PRN BOTH EYES ITCHING EYES Last administered on 03/25/17 14:26; Admin Dose 1 DROP; Start 03/01/17 at 15: 30 Apixaban (Eliquis) 2.5 mg BID PO Last administered on 03/25/17 09:05; Admin Dose 2.5 MG; Start 03/04/17 at 21:00 Lansoprazole (Prevacid) 30 mg DAILY@06 GTB Last administered on 03/18/17 05: 10; Admin Dose 30 MG; Start 03/06/17 at 06:00 Miscellaneous Information (Pending [facility] Order For Wound Care) This patient moraes... PRN PRN XX WOUND CARE; Start 03/10/17 at 15:00 Nifedipine (Procardia Xl) 30 mg DAILY PO Last administered on 03/25/17 09:04 ; Admin Dose 30 MG; Start 03/20/17 at 16:00 Hydralazine HCl (Apresoline) 20 mg Q8H PRN IV SBP over 170; Start 03/20/17 at 20:00 Lidocaine (Lidoderm) 1 patch DAILY TD Last administered on 03/25/17 09:04; Admin Dose 1 PATCH; Start 03/23/17 at 21:00 LEVI QUEZADA NP Mar 25, 2017 19:43
[2017-03-25] MEDS ORDERED: NITROGLYCERIN (SL) 0.4 MG TAB ONE (20:07)
[2017-03-25] MEDS: DOXAZOSIN 2 MG TAB PO SCH (20:28)
[2017-03-25] MEDS ORDERED: NITROGLYCERIN (SL) 0.4 MG TAB SL PRN (20:30)
[2017-03-25] MEDS ORDERED: morphine 2 MG INJ IV PRN (22:30)
[2017-03-26] VITALS (25 sets, daily range): BP systolic 115–147; BP diastolic 66–78; PULSE 59–156; RESP 17–18
[2017-03-26] MEDS: ACETAMINOPHEN 500 MG TAB PO PRN (03:09)
[2017-03-26] MEDS: LANSOPRAZOLE 30 MG CAP GTB SCH (06:00)
[2017-03-26] MEDS: FLUTICASONE 0.05% 16 GM NAS SPRAY NASAL SCH ×2 (09:00→20:30)
[2017-03-26] MEDS: BALSAM PERU/CASTOR OIL 60 GM TUBE TOP SCH (09:00)
[2017-03-26] MEDS: IPRATROPIUM (HFA) 12.9 GM INHALER INH PRN ×3 (09:18→20:30)
[2017-03-26] MEDS: ALBUTEROL 18 GM INHALER INH PRN ×3 (09:20→20:30)
[2017-03-26] MEDS: LIDOCAINE 5% 35 GM OINT TOP SCH ×2 (09:23→20:37)
--- NOTE | 2017-03-26 09:46 | PN ---
DATE: 03/26/2017 SUBJECTIVE: The patient remains on BiPAP. Had hemodialysis yesterday, tolerated well. No other ev ents noted. OBJECTIVE: VITAL SIGNS: Blood pressure is 132/73, temperature 97.4, pulse 60, respiration 18. HEENT: Head is normocephalic. NECK: Supple. HEART: Regular rate. LUNGS: Show diminished breath sounds at the base. ABDOMEN: Soft, nontender to palpation. No rebound or guarding. EXTREMITIES: Negative for clubbing, cyanosis. No edema. DERMATOLOGIC: No rashes. MUSCULOSKELETAL: No joint effusions. NEUROLOGIC: No change in exam. MEDICATIONS: The patient's medications have been reviewed. LABORATORY DATA: Shows sodium 135, BUN 70, creatinine 3.02. ASSESSMENT AND PLAN: 1. Acute respiratory failure. The patient is on nightly BiPAP. Continue. 2. Sepsis, status post shock secondary to pneumonia. The patient has completed antibiotic course. 3. 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 Etiology secondary to acut e tubular necrosis. The patient is currently dialysis dependent, no evidence of recovery. 4. End-stage renal disease status post renal transplant. Patient is in acute kidney injury as stat ed above. Continue current treatment plan. Continue immunosuppressive regimen. 5. Sinus rhythm. He is status post pacemaker. Continue to monitor. 6. Acute encephalopathy, improving. 7. Gastrointestinal and deep venous thrombosis prophylaxis. 8. History of hepatitis C. 9. History of gout. DISPOSITION: The patient is pending transfer to subacute facility once bed is available. Dictated By: PATRIA CHANEY/BECKIE Conf#: [id number] DID#: [id number]
[2017-03-26] MEDS: oxyCODONE 5 MG TAB PO PRN ×2 (13:27→20:32)
[2017-03-26] MEDS: CYCLOSPORINE 25 MG CAP PO SCH ×2 (13:27→20:31)
[2017-03-26] MEDS: THIAMINE 100 MG TAB PO SCH (13:27)
[2017-03-26] MEDS: predniSONE 5 MG TAB PO SCH (13:28)
[2017-03-26] MEDS: APIXABAN 5 MG TABLET PO SCH ×2 (13:28→21:07)
[2017-03-26] MEDS: NIFEdipine (XL) 30 MG TAB PO SCH (13:28)
--- NOTE | 2017-03-26 15:14 | CONS ---
Date/Time of Note Date/Time of Note DATE: 03/26/17 TIME: 15:12 Consult Date/Type/Reason Admit Date/Time Mar 01, 2017 at 13:35 Initial Consult Date 03/01/17 Type of Consultation: cardiology Subjective CARDIOLOGY FOLLOW UP NOTE: S: Discussed with staff and rhythm strip is reviewed. Patient remains in demand ventricular pacemaker. he is breathing ok but had mild left sided sharp chest pain last night, lasting up to hours but when he woke up this am it had resolved. he denies any cp or pressure to me now no active bleeding is reported no palpitations O: General: thin man, ON O2 HEENT: NC/AT. . NECK: . no stridor. CV: RRR. systolic murmur; no gallop or rubs. chest: s/p left sided PPM, no hematoma or bleeding PULM: no wheezing mild rhonchi. GI: SOFT, NT, ND, no rebound or guarding Extremity:mild LE edema. no clubbing. neuro: awake and alert. Psych: calm and pleasant rectal: deferred : normal male Objective Vital Signs Date Time Temp Pulse Resp B/P Pulse Ox O2 Delivery O2 Flow Rate FiO2 03/26/17 12:41 60 18 03/26/17 11:33 98.0 115/68 98 03/26/17 09:35 30 03/26/17 09:00 Nasal Cannula 4.0 Intake and Output 03/25/17 03/25/17 03/26/17 15:00 23:00 07:00 Intake Total 600 ml 750 ml 240 ml Output Total 3000 ml Balance -2400 ml 750 ml 240 ml Results/Medications Result Diagram: 03/26/17 0542 03/26/17 0542 Results 24 hrs Laboratory Tests Test 03/25/17 20:10 03/26/17 05:42 03/26/17 09:56 Creatine Kinase < 20 L < 20 L Creatine Kinase Index Creatinine Kinase MB (Mass) 2.54 H 2.63 H Troponin I 0.023 0.025 White Blood Count 5.5 Red Blood Count 3.46 L Hemoglobin 9.5 L Hematocrit 32.1 L Mean Corpuscular Volume 92.8 Mean Corpuscular Hemoglobin 27.5 L Mean Corpuscular Hemoglobin Concent 29.6 L Red Cell Distribution Width 16.4 H Platelet Count 57 L Mean Platelet Volume 11.6 H Neutrophils % 71.6 Lymphocytes % 16.8 Monocytes % 9.4 Eosinophils % 1.1 Basophils % 0.0 Nucleated Red Blood Cells % 0.0 Neutrophils # 4.0 Lymphocytes # 0.9 Monocytes # 0.5 Eosinophils # 0.1 Basophils # 0.0 Nucleated Red Blood Cells # 0.0 Sodium Level 135 Potassium Level 5.4 H Chloride Level 98 Carbon Dioxide Level 27 Anion Gap 15 Blood Urea Nitrogen 70 H Creatinine 3.02 H Glucose Level 86 Calcium Level 8.6 Phosphorus Level 4.2 Magnesium Level 1.8 Iron Level 36 Total Iron Binding Capacity 194 L Percent Iron Saturation 19 L Ferritin 321.0 H Total Bilirubin 0.2 Direct Bilirubin 0.00 Indirect Bilirubin 0.2 Aspartate Amino Transf (AST/SGOT) 40 Alanine Aminotransferase (ALT/SGPT) 41 Alkaline Phosphatase 189 H Total Protein 7.3 Albumin 3.1 L Globulin 4.20 H Albumin/Globulin Ratio 0.73 Hepatitis B Surface Antigen NEGATIVE Hepatitis B Core Total Antibody NEGATIVE Hepatitis C Antibody REACTIVE H Medications Current Medications Acetaminophen (Tylenol Tab) 500 mg Q6H PRN PO PAIN AND OR ELEVATED TEMP Last administered on 03/26/17 03:09; Admin Dose 500 MG; Start 03/01/17 at 13:30 Lidocaine (Lidocaine 5% Oint) 1 applic BID TOP Last administered on 03/26/17 09:23; Admin Dose 1 APPLIC; Start 03/01/17 at 21:00 Oxycodone HCl (Roxicodone) 2.5 mg Q6H PRN PO PAIN Last administered on 13:27; Admin Dose 2.5 MG; Start 03/01/17 at 13:30 Prednisone (Prednisone) 5 mg DAILY PO Last administered on 03/26/17 13:28; Admin Dose 5 MG; Start 03/02/17 at 09:00 Eye Lubricant (Akwa Oint) 1 applic DAILY PRN RIGHT EYE ITCHING Last administered on 03/25/17 22:52; Admin Dose 1 APPLIC; Start 03/01/17 at 15:00 Bisacodyl (Dulcolax) 5 mg DAILY PRN PO CONSTIPATION Last administered on 15:48; Admin Dose 5 MG; Start 03/01/17 at 15:00 Cyclosporine (Sandimmune) 25 mg BID PO Last administered on 03/26/17 13:27; Admin Dose 25 MG; Start 03/01/17 at 21:00 Doxazosin Mesylate (Cardura) 2 mg QHS PO Last administered on 03/25/17 20:28 ; Admin Dose 2 MG; Start 03/01/17 at 21:00 Fluticasone Propionate (Flonase 0.05% Nasal) 1 spray BID NASAL Last administered on 03/25/17 09:03; Admin Dose 1 SPRAY; Start 03/01/17 at 21:00 Senna/Docusate Sodium (Senokot-S) 1 tab QHS PRN PO CONSTIPATION Last administered on 03/14/17 12:30; Admin Dose 1 TAB; Start 03/01/17 at 15:00 Thiamine HCl (Vitamin B1) 100 mg DAILY PO Last administered on 03/26/17 13:27 ; Admin Dose 100 MG; Start 03/02/17 at 09:00 Eye Lubricant (Artificial Tears Oph) 1 drop Q4H PRN BOTH EYES ITCHING EYES Last administered on 03/25/17 14:26; Admin Dose 1 DROP; Start 03/01/17 at 15: 30 Apixaban (Eliquis) 2.5 mg BID PO Last administered on 03/26/17 13:28; Admin Dose 2.5 MG; Start 03/04/17 at 21:00 Lansoprazole (Prevacid) 30 mg DAILY@06 GTB Last administered on 03/18/17 05: 10; Admin Dose 30 MG; Start 03/06/17 at 06:00 Miscellaneous Information (Pending [facility] Order For Wound Care) This patient moraes... PRN PRN XX WOUND CARE; Start 03/10/17 at 15:00 Nifedipine (Procardia Xl) 30 mg DAILY PO Last administered on 03/26/17 13:28 ; Admin Dose 30 MG; Start 03/20/17 at 16:00 Hydralazine HCl (Apresoline) 20 mg Q8H PRN IV SBP over 170; Start 03/20/17 at 20:00 Lidocaine (Lidoderm) 1 patch DAILY TD Last administered on 03/25/17 09:04; Admin Dose 1 PATCH; Start 03/23/17 at 21:00 Nitroglycerin (Nitroglycerin (Sl Tab) 0.4 Mg) 1 tab Q5M PRN SL ANGINA; Start 03/25/17 at 20:30 Morphine Sulfate (morphine) 2 mg Q4H PRN IV pain; Start 03/25/17 at 22:30 Assessment/Plan Chief Complaint/Hosp Course 1. Acute on-chronic hypoxemic, hypercapnic respiratory failure, status post intubation, now extubated 2. Sick sinus syndrome, status post permanent pacemaker. 3. Atrial fibrillation with a slow ventricular response, heart rate under control with the pacemaker. 4. Septic shock: BP has improved now 5. Pneumonia. 6. Anemia. 7. History of hepatitis C. 8. History of renal transplant. 9. Renal failure, status post hemodialysis. 10. NSVT: 11. Atypical chest pain RECOMMENDATIONS: trop were negative. pt is paced so ECG is nondiagnostic for ischemia. cont med therapy Antibiotic is being managed as per Infectious Disease recommendations. cont eliquis as long as no bleeding Antirejection medications as per Renal. Dialysis as per Renal. replace lytes prn cont resp care, O2. f/u pulm rec cont HD to be adjusted per renal . cont O2 and BIPAP as needed. pacermaker was interrogated 03/20/17 and personally reviewed. it shows normal function. will cont to monitor THANK YOU ROLAND DORSEY MD [facility] . Problems: ROLAND DORSEY MD Mar 26, 2017 15:14
--- NOTE | 2017-03-26 15:15 | CONS ---
Date/Time of Note Date/Time of Note DATE: 03/26/17 TIME: 15:14 Consult Date/Type/Reason Admit Date/Time Mar 01, 2017 at 13:35 Initial Consult Date 03/01/17 Type of Consultation: ID Objective Vital Signs Date Time Temp Pulse Resp B/P Pulse Ox O2 Delivery O2 Flow Rate FiO2 03/26/17 12:41 60 18 03/26/17 11:33 98.0 115/68 98 03/26/17 09:35 30 03/26/17 09:00 Nasal Cannula 4.0 Intake and Output 03/25/17 03/25/17 03/26/17 15:00 23:00 07:00 Intake Total 600 ml 750 ml 240 ml Output Total 3000 ml Balance -2400 ml 750 ml 240 ml Results/Medications Result Diagram: 03/26/17 0542 03/26/17 0542 Results 24 hrs Laboratory Tests Test 03/25/17 20:10 03/26/17 05:42 03/26/17 09:56 Creatine Kinase < 20 L < 20 L Creatine Kinase Index Creatinine Kinase MB (Mass) 2.54 H 2.63 H Troponin I 0.023 0.025 White Blood Count 5.5 Red Blood Count 3.46 L Hemoglobin 9.5 L Hematocrit 32.1 L Mean Corpuscular Volume 92.8 Mean Corpuscular Hemoglobin 27.5 L Mean Corpuscular Hemoglobin Concent 29.6 L Red Cell Distribution Width 16.4 H Platelet Count 57 L Mean Platelet Volume 11.6 H Neutrophils % 71.6 Lymphocytes % 16.8 Monocytes % 9.4 Eosinophils % 1.1 Basophils % 0.0 Nucleated Red Blood Cells % 0.0 Neutrophils # 4.0 Lymphocytes # 0.9 Monocytes # 0.5 Eosinophils # 0.1 Basophils # 0.0 Nucleated Red Blood Cells # 0.0 Sodium Level 135 Potassium Level 5.4 H Chloride Level 98 Carbon Dioxide Level 27 Anion Gap 15 Blood Urea Nitrogen 70 H Creatinine 3.02 H Glucose Level 86 Calcium Level 8.6 Phosphorus Level 4.2 Magnesium Level 1.8 Iron Level 36 Total Iron Binding Capacity 194 L Percent Iron Saturation 19 L Ferritin 321.0 H Total Bilirubin 0.2 Direct Bilirubin 0.00 Indirect Bilirubin 0.2 Aspartate Amino Transf (AST/SGOT) 40 Alanine Aminotransferase (ALT/SGPT) 41 Alkaline Phosphatase 189 H Total Protein 7.3 Albumin 3.1 L Globulin 4.20 H Albumin/Globulin Ratio 0.73 Hepatitis B Surface Antigen NEGATIVE Hepatitis B Core Total Antibody NEGATIVE Hepatitis C Antibody REACTIVE H Medications Current Medications Acetaminophen (Tylenol Tab) 500 mg Q6H PRN PO PAIN AND OR ELEVATED TEMP Last administered on 03/26/17 03:09; Admin Dose 500 MG; Start 03/01/17 at 13:30 Lidocaine (Lidocaine 5% Oint) 1 applic BID TOP Last administered on 03/26/17 09:23; Admin Dose 1 APPLIC; Start 03/01/17 at 21:00 Oxycodone HCl (Roxicodone) 2.5 mg Q6H PRN PO PAIN Last administered on 13:27; Admin Dose 2.5 MG; Start 03/01/17 at 13:30 Prednisone (Prednisone) 5 mg DAILY PO Last administered on 03/26/17 13:28; Admin Dose 5 MG; Start 03/02/17 at 09:00 Eye Lubricant (Akwa Oint) 1 applic DAILY PRN RIGHT EYE ITCHING Last administered on 03/25/17 22:52; Admin Dose 1 APPLIC; Start 03/01/17 at 15:00 Bisacodyl (Dulcolax) 5 mg DAILY PRN PO CONSTIPATION Last administered on 15:48; Admin Dose 5 MG; Start 03/01/17 at 15:00 Cyclosporine (Sandimmune) 25 mg BID PO Last administered on 03/26/17 13:27; Admin Dose 25 MG; Start 03/01/17 at 21:00 Doxazosin Mesylate (Cardura) 2 mg QHS PO Last administered on 03/25/17 20:28 ; Admin Dose 2 MG; Start 03/01/17 at 21:00 Fluticasone Propionate (Flonase 0.05% Nasal) 1 spray BID NASAL Last administered on 03/25/17 09:03; Admin Dose 1 SPRAY; Start 03/01/17 at 21:00 Senna/Docusate Sodium (Senokot-S) 1 tab QHS PRN PO CONSTIPATION Last administered on 03/14/17 12:30; Admin Dose 1 TAB; Start 03/01/17 at 15:00 Thiamine HCl (Vitamin B1) 100 mg DAILY PO Last administered on 03/26/17 13:27 ; Admin Dose 100 MG; Start 03/02/17 at 09:00 Eye Lubricant (Artificial Tears Oph) 1 drop Q4H PRN BOTH EYES ITCHING EYES Last administered on 03/25/17 14:26; Admin Dose 1 DROP; Start 03/01/17 at 15: 30 Apixaban (Eliquis) 2.5 mg BID PO Last administered on 03/26/17 13:28; Admin Dose 2.5 MG; Start 03/04/17 at 21:00 Lansoprazole (Prevacid) 30 mg DAILY@06 GTB Last administered on 03/18/17 05: 10; Admin Dose 30 MG; Start 03/06/17 at 06:00 Miscellaneous Information (Pending [facility] Order For Wound Care) This patient moraes... PRN PRN XX WOUND CARE; Start 03/10/17 at 15:00 Nifedipine (Procardia Xl) 30 mg DAILY PO Last administered on 03/26/17 13:28 ; Admin Dose 30 MG; Start 03/20/17 at 16:00 Hydralazine HCl (Apresoline) 20 mg Q8H PRN IV SBP over 170; Start 03/20/17 at 20:00 Lidocaine (Lidoderm) 1 patch DAILY TD Last administered on 03/25/17 09:04; Admin Dose 1 PATCH; Start 03/23/17 at 21:00 Nitroglycerin (Nitroglycerin (Sl Tab) 0.4 Mg) 1 tab Q5M PRN SL ANGINA; Start 03/25/17 at 20:30 Morphine Sulfate (morphine) 2 mg Q4H PRN IV pain; Start 03/25/17 at 22:30 Assessment/Plan Chief Complaint/Hosp Course SUBJECTIVE: No acute events per report, in HD, looks comfortable, no fevers INDWELLINGS: Right chest Perm-A-Cath. PHYSICAL EXAMINATION: GENERAL: Well-developed, fragile, elderly man who is no distress. HEENT: Head atraumatic, normocephalic. Sclerae anicteric. Buccal mucosa dry. NECK: Supple. CHEST: Rise symmetrical. Breath sounds diminished to bases. HEART: S1, S2. ABDOMEN: Soft. Bowel tones present. ASSESSMENT: 1. Status post septic shock/ pneumonia 2. Status post urinary tract infection. 3. End-stage renal disease, hemodialysis dependent. 4. History of kidney transplant. 5. Sick sinus syndrome, status post permanent pacemaker placed on 02/27/2017. 6. Acute on chronic resp failure PLAN: Remains unchanged, will order bld cx with HD now, continue present care, anti-aspiration measures, f/u pulmonary rec-s [facility] staff Problems: MYLA CHIU NP Mar 26, 2017 15:15
[2017-03-26] MEDS: LIDOCAINE 5% PATCH TD SCH (15:45)
[2017-03-26] MEDS: DOXAZOSIN 2 MG TAB PO SCH (20:31)
[2017-03-27] VITALS (16 sets, daily range): BP systolic 117–149; BP diastolic 66–79; PULSE 60–173; RESP 17–18
[2017-03-27] MEDS: LANSOPRAZOLE 30 MG CAP GTB SCH (06:00)
[2017-03-27] MEDS: LIDOCAINE 5% 35 GM OINT TOP SCH ×2 (09:00→20:49)
[2017-03-27] MEDS: BALSAM PERU/CASTOR OIL 60 GM TUBE TOP SCH (09:00)
[2017-03-27] MEDS: FLUTICASONE 0.05% 16 GM NAS SPRAY NASAL SCH ×2 (09:00→20:50)
--- NOTE | 2017-03-27 09:28 | PN ---
DATE: 03/27/2017 SUBJECTIVE: The patient is stable, had hemodialysis yesterday, tolerated well. No other events not ed. OBJECTIVE: VITAL SIGNS: Blood pressure 125/70, respirations 17, pulse 60, temperature 98.2. HEENT: Head is normocephalic. NECK: Supple. HEART: Regular rate. LUNGS: Show diminished breath sounds at base. ABDOMEN: Soft, nontender to palpation without rebound or guarding. EXTREMITIES: Negative for clubbing, cyanosis, no edema. DERMATOLOGIC: No rashes. MUSCULOSKELETAL: No joint effusions. NEUROLOGIC: No change in exam. MEDICATIONS: The patient's medications have been reviewed. LABORATORY DATA: From 03/26/2017 was reviewed. ASSESSMENT AND PLAN: 1. Acute respiratory failure. Continue nightly BiPAP. 2. Sepsis secondary to pneumonia. The patient has completed antibiotic course. 3. 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 Etiology is secondary to a cute tubular necrosis. Patient is currently dialysis dependent, no evidence of recovery. 4. End-stage renal disease status post renal transplant. The patient is currently in acute kidney injury as stated above. Continue current treatment plan. Continue immunosuppressive regimen. 5. Arrhythmia, status post pacemaker. Continue to monitor. 6. Encephalopathy, improving. 7. Gastrointestinal and deep venous thrombosis prophylaxis. 8. History of gout. 9. History of hepatitis C. Dictated By: PATRIA CHANEY/BECKIE Conf#: [id number] DID#: [id number]
[2017-03-27] MEDS: NIFEdipine (XL) 30 MG TAB PO SCH (09:35)
[2017-03-27] MEDS: predniSONE 5 MG TAB PO SCH (09:35)
[2017-03-27] MEDS: THIAMINE 100 MG TAB PO SCH (09:35)
[2017-03-27] MEDS: APIXABAN 5 MG TABLET PO SCH ×2 (09:35→20:48)
[2017-03-27] MEDS: CYCLOSPORINE 25 MG CAP PO SCH ×2 (09:35→20:48)
[2017-03-27] MEDS: LIDOCAINE 5% PATCH TD SCH (09:36)
[2017-03-27] MEDS: IPRATROPIUM (HFA) 12.9 GM INHALER INH PRN ×2 (10:33→20:09)
[2017-03-27] MEDS: ALBUTEROL 18 GM INHALER INH PRN ×2 (10:34→20:08)
[2017-03-27] MEDS: ARTIFICIAL TEARS 15 ML OPH BOTH EYES PRN (10:40)
[2017-03-27] MEDS: oxyCODONE 5 MG TAB PO PRN (13:19)
--- NOTE | 2017-03-27 14:48 | CONS ---
Date/Time of Note Date/Time of Note DATE: 03/27/17 TIME: 14:47 Consult Date/Type/Reason Admit Date/Time Mar 01, 2017 at 13:35 Initial Consult Date 03/01/17 Type of Consultation: ID Objective Vital Signs Date Time Temp Pulse Resp B/P Pulse Ox O2 Delivery O2 Flow Rate FiO2 03/27/17 12:00 64 03/27/17 11:26 98.0 18 141/78 96 03/27/17 08:00 5.0 03/27/17 05:24 30 03/26/17 20:00 Nasal Cannula Intake and Output 03/26/17 03/26/17 03/27/17 15:00 23:00 07:00 Intake Total 500 ml 1000 ml Output Total 3500 ml 2500 ml Balance -3000 ml -1500 ml Results/Medications Result Diagram: 03/26/17 0542 03/26/17 0542 Medications Current Medications Acetaminophen (Tylenol Tab) 500 mg Q6H PRN PO PAIN AND OR ELEVATED TEMP Last administered on 03/26/17 03:09; Admin Dose 500 MG; Start 03/01/17 at 13:30 Lidocaine (Lidocaine 5% Oint) 1 applic BID TOP Last administered on 03/26/17 09:23; Admin Dose 1 APPLIC; Start 03/01/17 at 21:00 Oxycodone HCl (Roxicodone) 2.5 mg Q6H PRN PO PAIN Last administered on 13:19; Admin Dose 2.5 MG; Start 03/01/17 at 13:30 Prednisone (Prednisone) 5 mg DAILY PO Last administered on 03/27/17 09:35; Admin Dose 5 MG; Start 03/02/17 at 09:00 Eye Lubricant (Akwa Oint) 1 applic DAILY PRN RIGHT EYE ITCHING Last administered on 03/25/17 22:52; Admin Dose 1 APPLIC; Start 03/01/17 at 15:00 Bisacodyl (Dulcolax) 5 mg DAILY PRN PO CONSTIPATION Last administered on 15:48; Admin Dose 5 MG; Start 03/01/17 at 15:00 Cyclosporine (Sandimmune) 25 mg BID PO Last administered on 03/27/17 09:35; Admin Dose 25 MG; Start 03/01/17 at 21:00 Doxazosin Mesylate (Cardura) 2 mg QHS PO Last administered on 03/26/17 20:31 ; Admin Dose 2 MG; Start 03/01/17 at 21:00 Fluticasone Propionate (Flonase 0.05% Nasal) 1 spray BID NASAL Last administered on 03/26/17 20:30; Admin Dose 1 SPRAY; Start 03/01/17 at 21:00 Senna/Docusate Sodium (Senokot-S) 1 tab QHS PRN PO CONSTIPATION Last administered on 03/14/17 12:30; Admin Dose 1 TAB; Start 03/01/17 at 15:00 Thiamine HCl (Vitamin B1) 100 mg DAILY PO Last administered on 03/27/17 09:35 ; Admin Dose 100 MG; Start 03/02/17 at 09:00 Eye Lubricant (Artificial Tears Oph) 1 drop Q4H PRN BOTH EYES ITCHING EYES Last administered on 03/27/17 10:40; Admin Dose 1 DROP; Start 03/01/17 at 15: 30 Apixaban (Eliquis) 2.5 mg BID PO Last administered on 03/27/17 09:35; Admin Dose 2.5 MG; Start 03/04/17 at 21:00 Lansoprazole (Prevacid) 30 mg DAILY@06 GTB Last administered on 03/18/17 05: 10; Admin Dose 30 MG; Start 03/06/17 at 06:00 Miscellaneous Information (Pending [facility] Order For Wound Care) This patient moraes... PRN PRN XX WOUND CARE; Start 03/10/17 at 15:00 Nifedipine (Procardia Xl) 30 mg DAILY PO Last administered on 03/27/17 09:35 ; Admin Dose 30 MG; Start 03/20/17 at 16:00 Hydralazine HCl (Apresoline) 20 mg Q8H PRN IV SBP over 170; Start 03/20/17 at 20:00 Lidocaine (Lidoderm) 1 patch DAILY TD Last administered on 03/27/17 09:36; Admin Dose 1 PATCH; Start 03/23/17 at 21:00 Nitroglycerin (Nitroglycerin (Sl Tab) 0.4 Mg) 1 tab Q5M PRN SL ANGINA; Start 03/25/17 at 20:30 Morphine Sulfate (morphine) 2 mg Q4H PRN IV pain; Start 03/25/17 at 22:30 Assessment/Plan Chief Complaint/Hosp Course SUBJECTIVE: No acute events per report, looks comfortable, no fevers INDWELLINGS: Right chest Perm-A-Cath. PHYSICAL EXAMINATION: GENERAL: Well-developed, fragile, elderly man who is no distress. HEENT: Head atraumatic, normocephalic. Sclerae anicteric. Buccal mucosa dry. NECK: Supple. CHEST: Rise symmetrical. Breath sounds diminished to bases. HEART: S1, S2. ABDOMEN: Soft. Bowel tones present. ASSESSMENT: 1. Status post septic shock/ pneumonia 2. Status post urinary tract infection. 3. End-stage renal disease, hemodialysis dependent. 4. History of kidney transplant. 5. Sick sinus syndrome, status post permanent pacemaker placed on 02/27/2017. 6. Acute on chronic resp failure PLAN: Remains stable off abx, continue present care, anti-aspiration measures, f /u pulmonary rec-s [facility] staff Problems: MYLA CHIU NP Mar 27, 2017 14:48
--- NOTE | 2017-03-27 14:54 | RADRPT ---
Vent Rate: 61 bpm RR Interval: 0 msec [place] Interval: 0 msec QRS Duration: 90 msec QT Interval: 418 msec QTC Interval: 420 msec P-R-T [place]: 18 - -22 - 0 degrees Electronic ventricular pacemaker Electronically Signed By: Alex Chau [id number]
--- NOTE | 2017-03-27 14:54 | RADRPT ---
Vent Rate: 61 bpm RR Interval: 0 msec SC Interval: 0 msec QRS Duration: 90 msec QT Interval: 418 msec QTC Interval: 420 msec P-R-T [place]: 18 - -22 - 0 degrees Electronic ventricular pacemaker Electronically Signed By: Alex Chau [id number]
--- NOTE | 2017-03-27 14:54 | RADRPT ---
Vent Rate: 61 bpm RR Interval: 0 msec SD Interval: 0 msec QRS Duration: 90 msec QT Interval: 418 msec QTC Interval: 420 msec P-R-T [place]: 18 - -22 - 0 degrees Electronic ventricular pacemaker Electronically Signed By: Alex Chau [id number]
--- NOTE | 2017-03-27 17:46 | CONS ---
Date/Time of Note Date/Time of Note DATE: 03/27/17 TIME: 17:45 Consult Date/Type/Reason Admit Date/Time Mar 01, 2017 at 13:35 Initial Consult Date 03/01/17 Type of Consultation: cardiology Subjective CARDIOLOGY FOLLOW UP NOTE: S: Discussed with staff and rhythm strip is reviewed. Patient remains in demand ventricular pacemaker. he is breathing ok with no chest pain he denies any cp or pressure to me now no active bleeding is reported no palpitations O: General: thin man, ON O2 HEENT: NC/AT. . NECK: . no stridor. CV: RRR. systolic murmur; no gallop or rubs. chest: s/p left sided PPM, no hematoma or bleeding PULM: no wheezing mild rhonchi. GI: SOFT, NT, ND, no rebound or guarding Extremity:mild LE edema. no clubbing. neuro: awake and alert. Psych: calm and pleasant rectal: deferred : normal male Objective Vital Signs Date Time Temp Pulse Resp B/P Pulse Ox O2 Delivery O2 Flow Rate FiO2 03/27/17 16:00 60 03/27/17 15:49 4.0 03/27/17 15:08 97.6 17 147/75 90 03/27/17 05:24 30 03/26/17 20:00 Nasal Cannula Intake and Output 03/26/17 03/26/17 03/27/17 15:00 23:00 07:00 Intake Total 500 ml 1000 ml Output Total 3500 ml 2500 ml Balance -3000 ml -1500 ml Results/Medications Result Diagram: 03/26/17 0542 03/26/17 0542 Medications Current Medications Acetaminophen (Tylenol Tab) 500 mg Q6H PRN PO PAIN AND OR ELEVATED TEMP Last administered on 03/26/17 03:09; Admin Dose 500 MG; Start 03/01/17 at 13:30 Lidocaine (Lidocaine 5% Oint) 1 applic BID TOP Last administered on 03/26/17 09:23; Admin Dose 1 APPLIC; Start 03/01/17 at 21:00 Oxycodone HCl (Roxicodone) 2.5 mg Q6H PRN PO PAIN Last administered on 13:19; Admin Dose 2.5 MG; Start 03/01/17 at 13:30 Prednisone (Prednisone) 5 mg DAILY PO Last administered on 03/27/17 09:35; Admin Dose 5 MG; Start 03/02/17 at 09:00 Eye Lubricant (Akwa Oint) 1 applic DAILY PRN RIGHT EYE ITCHING Last administered on 03/25/17 22:52; Admin Dose 1 APPLIC; Start 03/01/17 at 15:00 Bisacodyl (Dulcolax) 5 mg DAILY PRN PO CONSTIPATION Last administered on 15:48; Admin Dose 5 MG; Start 03/01/17 at 15:00 Cyclosporine (Sandimmune) 25 mg BID PO Last administered on 03/27/17 09:35; Admin Dose 25 MG; Start 03/01/17 at 21:00 Doxazosin Mesylate (Cardura) 2 mg QHS PO Last administered on 03/26/17 20:31 ; Admin Dose 2 MG; Start 03/01/17 at 21:00 Fluticasone Propionate (Flonase 0.05% Nasal) 1 spray BID NASAL Last administered on 03/26/17 20:30; Admin Dose 1 SPRAY; Start 03/01/17 at 21:00 Senna/Docusate Sodium (Senokot-S) 1 tab QHS PRN PO CONSTIPATION Last administered on 03/14/17 12:30; Admin Dose 1 TAB; Start 03/01/17 at 15:00 Thiamine HCl (Vitamin B1) 100 mg DAILY PO Last administered on 03/27/17 09:35 ; Admin Dose 100 MG; Start 03/02/17 at 09:00 Eye Lubricant (Artificial Tears Oph) 1 drop Q4H PRN BOTH EYES ITCHING EYES Last administered on 03/27/17 10:40; Admin Dose 1 DROP; Start 03/01/17 at 15: 30 Apixaban (Eliquis) 2.5 mg BID PO Last administered on 03/27/17 09:35; Admin Dose 2.5 MG; Start 03/04/17 at 21:00 Lansoprazole (Prevacid) 30 mg DAILY@06 GTB Last administered on 03/18/17 05: 10; Admin Dose 30 MG; Start 03/06/17 at 06:00 Miscellaneous Information (Pending [facility] Order For Wound Care) This patient moraes... PRN PRN XX WOUND CARE; Start 03/10/17 at 15:00 Nifedipine (Procardia Xl) 30 mg DAILY PO Last administered on 03/27/17 09:35 ; Admin Dose 30 MG; Start 03/20/17 at 16:00 Hydralazine HCl (Apresoline) 20 mg Q8H PRN IV SBP over 170; Start 03/20/17 at 20:00 Lidocaine (Lidoderm) 1 patch DAILY TD Last administered on 03/27/17 09:36; Admin Dose 1 PATCH; Start 03/23/17 at 21:00 Nitroglycerin (Nitroglycerin (Sl Tab) 0.4 Mg) 1 tab Q5M PRN SL ANGINA; Start 03/25/17 at 20:30 Morphine Sulfate (morphine) 2 mg Q4H PRN IV pain; Start 03/25/17 at 22:30 Assessment/Plan Chief Complaint/Hosp Course 1. Acute on-chronic hypoxemic, hypercapnic respiratory failure, status post intubation, now extubated 2. Sick sinus syndrome, status post permanent pacemaker. 3. Atrial fibrillation with a slow ventricular response, heart rate under control with the pacemaker. 4. Septic shock: BP has improved now 5. Pneumonia. 6. Anemia. 7. History of hepatitis C. 8. History of renal transplant. 9. Renal failure, status post hemodialysis. 10. NSVT: 11. Atypical chest pain RECOMMENDATIONS: trop were negative. pt is paced so ECG is nondiagnostic for ischemia. cont med therapy Antibiotic is being managed as per Infectious Disease recommendations. cont eliquis as long as no bleeding Antirejection medications as per Renal. Dialysis as per Renal. replace lytes prn cont resp care, O2. f/u pulm rec cont HD to be adjusted per renal . cont O2 and BIPAP as needed. pacermaker was interrogated 03/20/17 and personally reviewed. it shows normal function. will cont to monitor THANK YOU ROLAND DORSEY MD [facility] . Problems: ROLAND DORSEY MD Mar 27, 2017 17:46
[2017-03-27] MEDS: DOXAZOSIN 2 MG TAB PO SCH (20:49)
[2017-03-28] VITALS (26 sets, daily range): BP systolic 124–154; BP diastolic 68–100; PULSE 60–73; RESP 16–19
[2017-03-28] MEDS: LANSOPRAZOLE 30 MG CAP GTB SCH (05:25)
[2017-03-28] MEDS: CYCLOSPORINE 25 MG CAP PO SCH ×2 (08:47→20:13)
[2017-03-28] MEDS: predniSONE 5 MG TAB PO SCH (08:48)
[2017-03-28] MEDS: APIXABAN 5 MG TABLET PO SCH ×2 (08:48→20:13)
[2017-03-28] MEDS: THIAMINE 100 MG TAB PO SCH (08:48)
[2017-03-28] MEDS: LIDOCAINE 5% PATCH TD SCH (08:50)
[2017-03-28] MEDS: FLUTICASONE 0.05% 16 GM NAS SPRAY NASAL SCH ×2 (08:51→20:12)
[2017-03-28] MEDS: BALSAM PERU/CASTOR OIL 60 GM TUBE TOP SCH (08:51)
[2017-03-28] MEDS: LIDOCAINE 5% 35 GM OINT TOP SCH ×2 (08:51→20:15)
[2017-03-28] MEDS: NIFEdipine (XL) 30 MG TAB PO SCH (08:52)
--- NOTE | 2017-03-28 09:31 | CONS ---
Date/Time of Note Date/Time of Note DATE: 03/28/17 TIME: 09:30 Consult Date/Type/Reason Admit Date/Time Mar 01, 2017 at 13:35 Initial Consult Date 03/01/17 Type of Consultation: cardiology Subjective CARDIOLOGY FOLLOW UP NOTE: S: Discussed with staff and rhythm strip is reviewed. Patient remains in demand ventricular pacemaker. breathing is stable. he denies any cp or pressure to me now no active bleeding is reported no palpitations O: General: thin man, ON O2 HEENT: NC/AT. . NECK: . no stridor. CV: RRR. systolic murmur; no gallop or rubs. chest: s/p left sided PPM, no hematoma or bleeding PULM: no wheezing mild rhonchi. GI: SOFT, NT, ND, no rebound or guarding Extremity:mild LE edema. no clubbing. neuro: awake and alert. Psych: calm and pleasant rectal: deferred : normal male Objective Vital Signs Date Time Temp Pulse Resp B/P Pulse Ox O2 Delivery O2 Flow Rate FiO2 03/28/17 07:54 97.9 60 19 134/74 99 03/28/17 05:05 30 03/27/17 20:39 5.0 03/26/17 20:00 Nasal Cannula Intake and Output 03/27/17 03/27/17 03/28/17 15:00 23:00 07:00 Intake Total 375 ml 1000 ml Balance 375 ml 1000 ml Results/Medications Result Diagram: 03/28/17 0724 03/28/17 0724 Results 24 hrs Laboratory Tests Test 03/28/17 07:24 White Blood Count 5.0 Red Blood Count 3.21 L Hemoglobin 9.1 L Hematocrit 30.1 L Mean Corpuscular Volume 93.8 Mean Corpuscular Hemoglobin 28.3 L Mean Corpuscular Hemoglobin Concent 30.2 L Red Cell Distribution Width 16.3 H Platelet Count 56 L Mean Platelet Volume 11.3 H Neutrophils % 67.2 Lymphocytes % 21.5 Monocytes % 9.1 Eosinophils % 1.8 Basophils % 0.0 Nucleated Red Blood Cells % 0.0 Neutrophils # 3.3 Lymphocytes # 1.1 Monocytes # 0.5 Eosinophils # 0.1 Basophils # 0.0 Nucleated Red Blood Cells # 0.0 Sodium Level 134 L Potassium Level 5.7 H Chloride Level 103 Carbon Dioxide Level 21 Anion Gap 16 Blood Urea Nitrogen 84 H Creatinine 3.75 H Glucose Level 67 L Calcium Level 8.6 Phosphorus Level 5.3 H Magnesium Level 1.9 Medications Current Medications Acetaminophen (Tylenol Tab) 500 mg Q6H PRN PO PAIN AND OR ELEVATED TEMP Last administered on 03/26/17 03:09; Admin Dose 500 MG; Start 03/01/17 at 13:30 Lidocaine (Lidocaine 5% Oint) 1 applic BID TOP Last administered on 03/28/17 08:51; Admin Dose 1 APPLIC; Start 03/01/17 at 21:00 Oxycodone HCl (Roxicodone) 2.5 mg Q6H PRN PO PAIN Last administered on 13:19; Admin Dose 2.5 MG; Start 03/01/17 at 13:30 Prednisone (Prednisone) 5 mg DAILY PO Last administered on 03/28/17 08:48; Admin Dose 5 MG; Start 03/02/17 at 09:00 Eye Lubricant (Akwa Oint) 1 applic DAILY PRN RIGHT EYE ITCHING Last administered on 03/25/17 22:52; Admin Dose 1 APPLIC; Start 03/01/17 at 15:00 Bisacodyl (Dulcolax) 5 mg DAILY PRN PO CONSTIPATION Last administered on 15:48; Admin Dose 5 MG; Start 03/01/17 at 15:00 Cyclosporine (Sandimmune) 25 mg BID PO Last administered on 03/28/17 08:47; Admin Dose 25 MG; Start 03/01/17 at 21:00 Doxazosin Mesylate (Cardura) 2 mg QHS PO Last administered on 03/27/17 20:49 ; Admin Dose 2 MG; Start 03/01/17 at 21:00 Fluticasone Propionate (Flonase 0.05% Nasal) 1 spray BID NASAL Last administered on 03/28/17 08:51; Admin Dose 1 SPRAY; Start 03/01/17 at 21:00 Senna/Docusate Sodium (Senokot-S) 1 tab QHS PRN PO CONSTIPATION Last administered on 03/14/17 12:30; Admin Dose 1 TAB; Start 03/01/17 at 15:00 Thiamine HCl (Vitamin B1) 100 mg DAILY PO Last administered on 03/28/17 08:48 ; Admin Dose 100 MG; Start 03/02/17 at 09:00 Eye Lubricant (Artificial Tears Oph) 1 drop Q4H PRN BOTH EYES ITCHING EYES Last administered on 03/27/17 10:40; Admin Dose 1 DROP; Start 03/01/17 at 15: 30 Apixaban (Eliquis) 2.5 mg BID PO Last administered on 03/28/17 08:48; Admin Dose 2.5 MG; Start 03/04/17 at 21:00 Lansoprazole (Prevacid) 30 mg DAILY@06 GTB Last administered on 03/28/17 05:25 ; Admin Dose 30 MG; Start 03/06/17 at 06:00 Miscellaneous Information (Pending [facility] Order For Wound Care) This patient moraes... PRN PRN XX WOUND CARE; Start 03/10/17 at 15:00 Nifedipine (Procardia Xl) 30 mg DAILY PO Last administered on 03/27/17 09:35 ; Admin Dose 30 MG; Start 03/20/17 at 16:00 Hydralazine HCl (Apresoline) 20 mg Q8H PRN IV SBP over 170; Start 03/20/17 at 20:00 Lidocaine (Lidoderm) 1 patch DAILY TD Last administered on 03/28/17 08:50; Admin Dose 1 PATCH; Start 03/23/17 at 21:00 Nitroglycerin (Nitroglycerin (Sl Tab) 0.4 Mg) 1 tab Q5M PRN SL ANGINA; Start 03/25/17 at 20:30 Morphine Sulfate (morphine) 2 mg Q4H PRN IV pain; Start 03/25/17 at 22:30 Assessment/Plan Chief Complaint/Hosp Course 1. Acute on-chronic hypoxemic, hypercapnic respiratory failure, status post intubation, now extubated 2. Sick sinus syndrome, status post permanent pacemaker. 3. Atrial fibrillation with a slow ventricular response, heart rate under control with the pacemaker. 4. Septic shock: BP has improved now 5. Pneumonia. 6. Anemia. 7. History of hepatitis C. 8. History of renal transplant. 9. Renal failure, status post hemodialysis. 10. NSVT: 11. Atypical chest pain RECOMMENDATIONS: . cont med therapy for his cardiac disease. Antibiotic is being managed as per Infectious Disease recommendations. cont eliquis as long as no bleeding Antirejection medications as per Renal. Dialysis as per Renal. replace lytes prn cont resp care, O2. f/u pulm rec cont HD to be adjusted per renal . cont O2 and BIPAP as needed. pacermaker was interrogated 03/20/17 and personally reviewed. it shows normal function. will cont to monitor PT as tolerated. THANK YOU ROLAND DORSEY MD [facility] . Problems: ROLAND DORSEY MD Mar 28, 2017 09:31
[2017-03-28] MEDS ORDERED: HEPARIN 1000 UNITS/ML 10 ML INJ CATHETER ONE (12:30)
--- NOTE | 2017-03-28 12:48 | PN ---
DATE: 03/28/2017 SUBJECTIVE: The patient remains on nightly BiPAP, tolerating it well. The patient is pending place ment in a [place] [facility] facility once bed is available. No other events noted. OBJECTIVE: VITAL SIGNS: Blood pressure is 134/74, temperature 97.9, pulse 60, respirations 19. HEENT: Head is normocephalic. NECK: Supple. HEART: Regular rate. LUNGS: Show diminished breath sounds at the base. ABDOMEN: Soft, nontender to palpation, no rebound or guarding. EXTREMITIES: Negative for clubbing, cyanosis, no edema. DERMATOLOGIC: No rashes. MUSCULOSKELETAL: No joint effusions. NEUROLOGIC: No change in exam. MEDICATIONS: The patient's medications have been reviewed. LABORATORY DATA: Shows a sodium 134, potassium 5.7, BUN 84, creatinine 3.75. ASSESSMENT AND PLAN: 1. Acute respiratory failure. The patient is currently stable. Continue nightly BiPAP. Continue nasal cannula. 2. Sepsis secondary to pneumonia. The patient has completed antibiotic course. 3. 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 Etiology is secondary to a cute tubular necrosis. The patient is currently dialysis dependent. No evidence of recovery. 4. End-stage renal disease status post renal transplant. The patient is currently in acute kidney injury as stated above. Continue current treatment plan. Continue immunosuppressive regimen. 5. Arrhythmia, status post pacemaker. Continue to monitor. 6. Encephalopathy, improving. 7. Gastrointestinal and deep venous thrombosis prophylaxis. 8. Hyperkalemia. The patient will be dialyzed on a low potassium bath. 9. History of gout. 10. History of hepatitis C. Dictated By: PATRIA CHANEY/BECKIE Conf#: [id number] DID#: [id number]
--- NOTE | 2017-03-28 13:17 | CONS ---
Date/Time of Note Date/Time of Note DATE: 03/28/17 TIME: : Consult Date/Type/Reason Admit Date/Time Mar 01, 2017 at 13:35 Initial Consult Date 03/01/17 Type of Consultation: ID Objective Vital Signs Date Time Temp Pulse Resp B/P Pulse Ox O2 Delivery O2 Flow Rate FiO2 03/28/17 12:30 62 03/28/17 12:00 Nasal Cannula 5.0 03/28/17 11:59 98.4 18 154/100 100 03/28/17 11:44 30 Intake and Output 03/27/17 03/27/17 03/28/17 15:00 23:00 07:00 Intake Total 375 ml 1000 ml Balance 375 ml 1000 ml Results/Medications Result Diagram: 03/28/1724 03/28/17 0724 Results 24 hrs Laboratory Tests Test 03/28/17 07:24 White Blood Count 5.0 Red Blood Count 3.21 L Hemoglobin 9.1 L Hematocrit 30.1 L Mean Corpuscular Volume 93.8 Mean Corpuscular Hemoglobin 28.3 L Mean Corpuscular Hemoglobin Concent 30.2 L Red Cell Distribution Width 16.3 H Platelet Count 56 L Mean Platelet Volume 11.3 H Neutrophils % 67.2 Lymphocytes % 21.5 Monocytes % 9.1 Eosinophils % 1.8 Basophils % 0.0 Nucleated Red Blood Cells % 0.0 Neutrophils # 3.3 Lymphocytes # 1.1 Monocytes # 0.5 Eosinophils # 0.1 Basophils # 0.0 Nucleated Red Blood Cells # 0.0 Sodium Level 134 L Potassium Level 5.7 H Chloride Level 103 Carbon Dioxide Level 21 Anion Gap 16 Blood Urea Nitrogen 84 H Creatinine 3.75 H Glucose Level 67 L Calcium Level 8.6 Phosphorus Level 5.3 H Magnesium Level 1.9 Medications Current Medications Acetaminophen (Tylenol Tab) 500 mg Q6H PRN PO PAIN AND OR ELEVATED TEMP Last administered on 03/26/17 03:09; Admin Dose 500 MG; Start 03/01/17 at 13:30 Lidocaine (Lidocaine 5% Oint) 1 applic BID TOP Last administered on 03/28/17 08:51; Admin Dose 1 APPLIC; Start 03/01/17 at 21:00 Oxycodone HCl (Roxicodone) 2.5 mg Q6H PRN PO PAIN Last administered on 13:19; Admin Dose 2.5 MG; Start 03/01/17 at 13:30 Prednisone (Prednisone) 5 mg DAILY PO Last administered on 03/28/17 08:48; Admin Dose 5 MG; Start 03/02/17 at 09:00 Eye Lubricant (Akwa Oint) 1 applic DAILY PRN RIGHT EYE ITCHING Last administered on 03/25/17 22:52; Admin Dose 1 APPLIC; Start 03/01/17 at 15:00 Bisacodyl (Dulcolax) 5 mg DAILY PRN PO CONSTIPATION Last administered on 15:48; Admin Dose 5 MG; Start 03/01/17 at 15:00 Cyclosporine (Sandimmune) 25 mg BID PO Last administered on 03/28/17 08:47; Admin Dose 25 MG; Start 03/01/17 at 21:00 Doxazosin Mesylate (Cardura) 2 mg QHS PO Last administered on 03/27/17 20:49 ; Admin Dose 2 MG; Start 03/01/17 at 21:00 Fluticasone Propionate (Flonase 0.05% Nasal) 1 spray BID NASAL Last administered on 03/28/17 08:51; Admin Dose 1 SPRAY; Start 03/01/17 at 21:00 Senna/Docusate Sodium (Senokot-S) 1 tab QHS PRN PO CONSTIPATION Last administered on 03/14/17 12:30; Admin Dose 1 TAB; Start 03/01/17 at 15:00 Thiamine HCl (Vitamin B1) 100 mg DAILY PO Last administered on 03/28/17 08:48 ; Admin Dose 100 MG; Start 03/02/17 at 09:00 Eye Lubricant (Artificial Tears Oph) 1 drop Q4H PRN BOTH EYES ITCHING EYES Last administered on 03/27/17 10:40; Admin Dose 1 DROP; Start 03/01/17 at 15: 30 Apixaban (Eliquis) 2.5 mg BID PO Last administered on 03/28/17 08:48; Admin Dose 2.5 MG; Start 03/04/17 at 21:00 Lansoprazole (Prevacid) 30 mg DAILY@06 GTB Last administered on 03/28/17 05:25 ; Admin Dose 30 MG; Start 03/06/17 at 06:00 Miscellaneous Information (Pending [facility] Order For Wound Care) This patient moraes... PRN PRN XX WOUND CARE; Start 03/10/17 at 15:00 Nifedipine (Procardia Xl) 30 mg DAILY PO Last administered on 03/27/17 09:35 ; Admin Dose 30 MG; Start 03/20/17 at 16:00 Hydralazine HCl (Apresoline) 20 mg Q8H PRN IV SBP over 170; Start 03/20/17 at 20:00 Lidocaine (Lidoderm) 1 patch DAILY TD Last administered on 03/28/17 08:50; Admin Dose 1 PATCH; Start 03/23/17 at 21:00 Nitroglycerin (Nitroglycerin (Sl Tab) 0.4 Mg) 1 tab Q5M PRN SL ANGINA; Start 03/25/17 at 20:30 Morphine Sulfate (morphine) 2 mg Q4H PRN IV pain; Start 03/25/17 at 22:30 Assessment/Plan Chief Complaint/Hosp Course SUBJECTIVE: Awake, looks comfortable, no fevers INDWELLINGS: Right chest Perm-A-Cath. PHYSICAL EXAMINATION: GENERAL: Well-developed, fragile, elderly man who is no distress. HEENT: Head atraumatic, normocephalic. Sclerae anicteric. Buccal mucosa dry. NECK: Supple. CHEST: Rise symmetrical. Breath sounds diminished to bases. HEART: S1, S2. ABDOMEN: Soft. Bowel tones present. ASSESSMENT: 1. Status post septic shock/ pneumonia 2. Status post urinary tract infection. 3. End-stage renal disease, hemodialysis dependent. 4. History of kidney transplant. 5. Sick sinus syndrome, status post permanent pacemaker placed on 02/27/2017. 6. Acute on chronic resp failure PLAN: Remains stable off abx, continue present care, anti-aspiration measures, repeat cx's prn [facility] staff/pt Problems: MYLA CHIU NP Mar 28, 2017 13:17
[2017-03-28] MEDS: DOXAZOSIN 2 MG TAB PO SCH (20:13)
[2017-03-28] MEDS: IPRATROPIUM (HFA) 12.9 GM INHALER INH PRN (20:16)
[2017-03-28] MEDS: ALBUTEROL 18 GM INHALER INH PRN (20:18)
[2017-03-28] MEDS: ARTIFICIAL TEARS 15 ML OPH BOTH EYES PRN (20:19)
[2017-03-28] MEDS: oxyCODONE 5 MG TAB PO PRN (22:54)
--- NOTE | 2017-03-28 23:44 | OPR ---
DATE OF OPERATION: CONSULTING PHYSICIAN: Gualberto Garcia MD DESCRIPTION OF PROCEDURE: The patient that I am being called for a wound consultation for the plant ar aspect of both heels. Upon seeing the patient, it is noted that he has eggcrate heel protectors. The patient is a poor historian. PHSICAL EXAMINATION: The pulses are +2/4 foot for dorsalis pedis and 3/4 for posterior tibial pulses bilaterally. NEUROLOGIC: Intact for superficial and deep sensory bilaterally, confirmed with 5.07 monofilament. DERMATOLOGIC: There is dryness noted in both calcaneal regions bilaterally; however, there are no d emonstrable ulcerations noted bilaterally. Toenails appeared to be within normal limits. There are no signs of clinical infection noted. MUSCULOSKELETAL: There are no gross abnormalities. There are no bunion deformities, no hammertoe d eformities. IMPRESSION: The patient with new ulcerations noted. PLAN: We will continue this patient with prophylactic care, which will include using the heel prote ctors bilaterally during his hospital stay. We can follow up with this patient in the [facility] as needed in the future. Dictated By: GUALBERTO GARCIA MD RS/BECKIE Conf#: [id number] DID#: [id number]
[2017-03-29] VITALS (14 sets, daily range): BP systolic 126–151; BP diastolic 70–77; PULSE 60–64; RESP 18–20
[2017-03-29] MEDS: IPRATROPIUM (HFA) 12.9 GM INHALER INH PRN ×5 (00:35→21:21)
[2017-03-29] MEDS: ALBUTEROL 18 GM INHALER INH PRN ×5 (00:35→21:21)
[2017-03-29] MEDS: OCULAR LUBRICANT 3.5 GM OPH OINT RIGHT EYE PRN ×2 (00:53→22:54)
[2017-03-29] MEDS: LANSOPRAZOLE 30 MG CAP GTB SCH (06:00)
--- NOTE | 2017-03-29 08:07 | CONS ---
Date/Time of Note Date/Time of Note DATE: 03/29/17 TIME: 08:06 Consult Date/Type/Reason Admit Date/Time Mar 01, 2017 at 13:35 Initial Consult Date 03/01/17 Type of Consultation: card Subjective CARDIOLOGY FOLLOW UP NOTE: S: Discussed with staff and rhythm strip is reviewed. Patient remains in demand ventricular pacemaker. he is intermittently needing BIPAP for hypoxemia and dyspnea. he denies any cp or pressure to me now no active bleeding is reported no palpitations O: General: thin man, ON BIPAP now HEENT: NC/AT. . NECK: . no stridor. CV: RRR. systolic murmur; no gallop or rubs. chest: s/p left sided PPM, no hematoma or bleeding PULM: no wheezing mild rhonchi. GI: SOFT, NT, ND, no rebound or guarding Extremity:mild LE edema. no clubbing. neuro: awake and alert. Psych: calm and pleasant rectal: deferred : normal male Objective Vital Signs Date Time Temp Pulse Resp B/P Pulse Ox O2 Delivery O2 Flow Rate FiO2 03/29/17 07:37 97.9 60 18 135/75 97 03/29/17 05:00 30 03/29/17 00:00 5.0 03/28/17 20:20 Nasal Cannula Intake and Output 03/28/17 03/28/17 03/29/17 15:00 23:00 07:00 Intake Total 300 ml 800 ml 500 ml Output Total 3800 ml Balance -3500 ml 800 ml 500 ml Results/Medications Result Diagram: 03/29/17 0604 03/29/17 0604 Results 24 hrs Laboratory Tests Test 03/29/17 06:04 White Blood Count 4.7 L Red Blood Count 3.04 L Hemoglobin 8.8 L Hematocrit 28.5 L Mean Corpuscular Volume 93.8 Mean Corpuscular Hemoglobin 28.9 L Mean Corpuscular Hemoglobin Concent 30.9 L Red Cell Distribution Width 16.4 H Platelet Count 60 L Mean Platelet Volume 10.4 Neutrophils % 61.7 Lymphocytes % 25.4 Monocytes % 10.8 Eosinophils % 1.7 Basophils % 0.2 Nucleated Red Blood Cells % 0.0 Neutrophils # 2.9 Lymphocytes # 1.2 Monocytes # 0.5 Eosinophils # 0.1 Basophils # 0.0 Nucleated Red Blood Cells # 0.0 Sodium Level 138 Potassium Level 4.8 Chloride Level 103 Carbon Dioxide Level 26 Anion Gap 14 Blood Urea Nitrogen 67 H Creatinine 3.05 H Glucose Level 70 Calcium Level 8.5 Phosphorus Level 4.1 Magnesium Level 1.9 Medications Current Medications Acetaminophen (Tylenol Tab) 500 mg Q6H PRN PO PAIN AND OR ELEVATED TEMP Last administered on 03/26/17 03:09; Admin Dose 500 MG; Start 03/01/17 at 13:30 Lidocaine (Lidocaine 5% Oint) 1 applic BID TOP Last administered on 03/28/17 20:15; Admin Dose 1 APPLIC; Start 03/01/17 at 21:00 Oxycodone HCl (Roxicodone) 2.5 mg Q6H PRN PO PAIN Last administered on 22:54; Admin Dose 2.5 MG; Start 03/01/17 at 13:30 Prednisone (Prednisone) 5 mg DAILY PO Last administered on 03/28/17 08:48; Admin Dose 5 MG; Start 03/02/17 at 09:00 Eye Lubricant (Akwa Oint) 1 applic DAILY PRN RIGHT EYE ITCHING Last administered on 03/29/17 00:53; Admin Dose 1 APPLIC; Start 03/01/17 at 15:00 Bisacodyl (Dulcolax) 5 mg DAILY PRN PO CONSTIPATION Last administered on 15:48; Admin Dose 5 MG; Start 03/01/17 at 15:00 Cyclosporine (Sandimmune) 25 mg BID PO Last administered on 03/28/17 20:13; Admin Dose 25 MG; Start 03/01/17 at 21:00 Doxazosin Mesylate (Cardura) 2 mg QHS PO Last administered on 03/28/17 20:13; Admin Dose 2 MG; Start 03/01/17 at 21:00 Fluticasone Propionate (Flonase 0.05% Nasal) 1 spray BID NASAL Last administered on 03/28/17 08:51; Admin Dose 1 SPRAY; Start 03/01/17 at 21:00 Senna/Docusate Sodium (Senokot-S) 1 tab QHS PRN PO CONSTIPATION Last administered on 03/14/17 12:30; Admin Dose 1 TAB; Start 03/01/17 at 15:00 Thiamine HCl (Vitamin B1) 100 mg DAILY PO Last administered on 03/28/17 08:48 ; Admin Dose 100 MG; Start 03/02/17 at 09:00 Eye Lubricant (Artificial Tears Oph) 1 drop Q4H PRN BOTH EYES ITCHING EYES Last administered on 03/28/17 20:19; Admin Dose 1 DROP; Start 03/01/17 at 15:30 Apixaban (Eliquis) 2.5 mg BID PO Last administered on 03/28/17 20:13; Admin Dose 2.5 MG; Start 03/04/17 at 21:00 Lansoprazole (Prevacid) 30 mg DAILY@06 GTB Last administered on 03/28/17 05:25 ; Admin Dose 30 MG; Start 03/06/17 at 06:00 Miscellaneous Information (Pending [facility] Order For Wound Care) This patient moraes... PRN PRN XX WOUND CARE; Start 03/10/17 at 15:00 Nifedipine (Procardia Xl) 30 mg DAILY PO Last administered on 03/27/17 09:35 ; Admin Dose 30 MG; Start 03/20/17 at 16:00 Hydralazine HCl (Apresoline) 20 mg Q8H PRN IV SBP over 170; Start 03/20/17 at 20:00 Lidocaine (Lidoderm) 1 patch DAILY TD Last administered on 03/28/17 08:50; Admin Dose 1 PATCH; Start 03/23/17 at 21:00 Nitroglycerin (Nitroglycerin (Sl Tab) 0.4 Mg) 1 tab Q5M PRN SL ANGINA; Start 03/25/17 at 20:30 Morphine Sulfate (morphine) 2 mg Q4H PRN IV pain; Start 03/25/17 at 22:30 Assessment/Plan Chief Complaint/Hosp Course 1. Acute on-chronic hypoxemic, hypercapnic respiratory failure, status post intubation, now extubated 2. Sick sinus syndrome, status post permanent pacemaker. 3. Atrial fibrillation with a slow ventricular response, heart rate under control with the pacemaker. 4. s/p Septic shock: BP has improved now 5. Pneumonia. 6. Anemia. 7. History of hepatitis C. 8. History of renal transplant. 9. Renal failure, status post hemodialysis. 10. NSVT: 11. Atypical chest pain RECOMMENDATIONS: . cont med therapy for his cardiac disease. Antibiotic is being managed as per Infectious Disease recommendations. cont eliquis as long as no bleeding Antirejection medications as per Renal. Dialysis as per Renal. replace lytes prn cont resp care, O2 and BIPAP prn. f/u pulm rec cont HD to be adjusted per renal . pacermaker was interrogated 03/20/17 and personally reviewed. it shows normal function. will cont to monitor PT as tolerated. THANK YOU ROLAND DORSEY MD [facility] . Problems: ROLAND DORSEY MD Mar 29, 2017 08:07
[2017-03-29] MEDS: predniSONE 5 MG TAB PO SCH (08:11)
[2017-03-29] MEDS: THIAMINE 100 MG TAB PO SCH (08:11)
[2017-03-29] MEDS: CYCLOSPORINE 25 MG CAP PO SCH ×2 (08:11→21:17)
[2017-03-29] MEDS: APIXABAN 5 MG TABLET PO SCH ×2 (08:12→21:19)
[2017-03-29] MEDS: LIDOCAINE 5% PATCH TD SCH (08:12)
[2017-03-29] MEDS: NIFEdipine (XL) 30 MG TAB PO SCH (08:13)
[2017-03-29] MEDS: BALSAM PERU/CASTOR OIL 60 GM TUBE TOP SCH (08:13)
[2017-03-29] MEDS: LIDOCAINE 5% 35 GM OINT TOP SCH ×2 (08:14→21:20)
[2017-03-29] MEDS: ARTIFICIAL TEARS 15 ML OPH BOTH EYES PRN ×2 (08:16→21:21)
[2017-03-29] MEDS: FLUTICASONE 0.05% 16 GM NAS SPRAY NASAL SCH ×2 (08:20→21:00)
--- NOTE | 2017-03-29 10:53 | PN ---
DATE: 03/29/2017 SUBJECTIVE: The patient currently is on BiPAP, had hemodialysis yesterday, tolerated well. No othe r events noted. OBJECTIVE: VITAL SIGNS: Blood pressure is 135/75, temperature 97.9, pulse 63, respiration 18. HEENT: Head is normocephalic. NECK: Supple. HEART: Regular rate. LUNGS: Show diminished breath sounds at the base. ABDOMEN: Soft, nontender to palpation. No rebound or guarding. EXTREMITIES: Negative for clubbing, cyanosis. No edema. DERMATOLOGIC: No rashes. MUSCULOSKELETAL: No joint effusions. NEUROLOGIC: No change in exam. MEDICATIONS: The patient's medications have been reviewed. LABORATORY DATA: Shows sodium 138, potassium 4.8, chloride 103, BUN 67, creatinine 3.05. White cou nt 4.7, hemoglobin 8.8, platelet count is 60. ASSESSMENT AND PLAN: 1. Acute respiratory failure. The patient is currently stable. Continue BiPAP at night. Continue nasal cannula. 2. Sepsis secondary to pneumonia. The patient is to complete antibiotic course. 3. 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 Etiology is secondary to a cute tubular necrosis. The patient is currently dialysis dependent, no evidence of recovery. Plan for dialysis tomorrow. 4. End-stage renal disease status post renal transplant. The patient is currently in acute kidney injury as stated above. Continue current treatment plan. Continue immunosuppressive regimen. 5. Arrhythmia, status post pacemaker. Continue to monitor. 6. Hyperkalemia, resolved. Continue dialysis on a low potassium bath. 7. History of gout. 8. History of hepatitis. 9. Status post encephalopathy. 10. Gastrointestinal and deep venous thrombosis prophylaxis. Dictated By: PATRIA CHANEY/BECKIE Conf#: [id number] DID#: [id number]
--- NOTE | 2017-03-29 14:08 | CONS ---
Date/Time of Note Date/Time of Note DATE: 03/29/17 TIME: 14:08 Consult Date/Type/Reason Admit Date/Time Mar 01, 2017 at 13:35 Initial Consult Date 03/01/17 Type of Consultation: ID Objective Vital Signs Date Time Temp Pulse Resp B/P Pulse Ox O2 Delivery O2 Flow Rate FiO2 03/29/17 12:11 60 03/29/17 12:00 Nasal Cannula 5.0 03/29/17 11:24 98.1 18 140/77 97 03/29/17 05:00 30 Intake and Output 03/28/17 03/28/17 03/29/17 15:00 23:00 07:00 Intake Total 300 ml 800 ml 500 ml Output Total 3800 ml Balance -3500 ml 800 ml 500 ml Results/Medications Result Diagram: 03/29/17 0604 03/29/17 0604 Results 24 hrs Laboratory Tests Test 03/29/17 03:00 03/29/17 06:04 Stool Occult Blood NEGATIVE White Blood Count 4.7 L Red Blood Count 3.04 L Hemoglobin 8.8 L Hematocrit 28.5 L Mean Corpuscular Volume 93.8 Mean Corpuscular Hemoglobin 28.9 L Mean Corpuscular Hemoglobin Concent 30.9 L Red Cell Distribution Width 16.4 H Platelet Count 60 L Mean Platelet Volume 10.4 Neutrophils % 61.7 Lymphocytes % 25.4 Monocytes % 10.8 Eosinophils % 1.7 Basophils % 0.2 Nucleated Red Blood Cells % 0.0 Neutrophils # 2.9 Lymphocytes # 1.2 Monocytes # 0.5 Eosinophils # 0.1 Basophils # 0.0 Nucleated Red Blood Cells # 0.0 Sodium Level 138 Potassium Level 4.8 Chloride Level 103 Carbon Dioxide Level 26 Anion Gap 14 Blood Urea Nitrogen 67 H Creatinine 3.05 H Glucose Level 70 Calcium Level 8.5 Phosphorus Level 4.1 Magnesium Level 1.9 Medications Current Medications Acetaminophen (Tylenol Tab) 500 mg Q6H PRN PO PAIN AND OR ELEVATED TEMP Last administered on 03/26/17 03:09; Admin Dose 500 MG; Start 03/01/17 at 13:30 Lidocaine (Lidocaine 5% Oint) 1 applic BID TOP Last administered on 03/29/17 08:14; Admin Dose 1 APPLIC; Start 03/01/17 at 21:00 Oxycodone HCl (Roxicodone) 2.5 mg Q6H PRN PO PAIN Last administered on 22:54; Admin Dose 2.5 MG; Start 03/01/17 at 13:30 Prednisone (Prednisone) 5 mg DAILY PO Last administered on 03/29/17 08:11; Admin Dose 5 MG; Start 03/02/17 at 09:00 Eye Lubricant (Akwa Oint) 1 applic DAILY PRN RIGHT EYE ITCHING Last administered on 03/29/17 00:53; Admin Dose 1 APPLIC; Start 03/01/17 at 15:00 Bisacodyl (Dulcolax) 5 mg DAILY PRN PO CONSTIPATION Last administered on 15:48; Admin Dose 5 MG; Start 03/01/17 at 15:00 Cyclosporine (Sandimmune) 25 mg BID PO Last administered on 03/29/17 08:11; Admin Dose 25 MG; Start 03/01/17 at 21:00 Doxazosin Mesylate (Cardura) 2 mg QHS PO Last administered on 03/28/17 20:13; Admin Dose 2 MG; Start 03/01/17 at 21:00 Fluticasone Propionate (Flonase 0.05% Nasal) 1 spray BID NASAL Last administered on 03/28/17 08:51; Admin Dose 1 SPRAY; Start 03/01/17 at 21:00 Senna/Docusate Sodium (Senokot-S) 1 tab QHS PRN PO CONSTIPATION Last administered on 03/14/17 12:30; Admin Dose 1 TAB; Start 03/01/17 at 15:00 Thiamine HCl (Vitamin B1) 100 mg DAILY PO Last administered on 03/29/17 08:11 ; Admin Dose 100 MG; Start 03/02/17 at 09:00 Eye Lubricant (Artificial Tears Oph) 1 drop Q4H PRN BOTH EYES ITCHING EYES Last administered on 03/29/17 08:16; Admin Dose 1 DROP; Start 03/01/17 at 15:30 Apixaban (Eliquis) 2.5 mg BID PO Last administered on 03/29/17 08:12; Admin Dose 2.5 MG; Start 03/04/17 at 21:00 Lansoprazole (Prevacid) 30 mg DAILY@06 GTB Last administered on 03/28/17 05:25 ; Admin Dose 30 MG; Start 03/06/17 at 06:00 Miscellaneous Information (Pending [facility] Order For Wound Care) This patient moraes... PRN PRN XX WOUND CARE; Start 03/10/17 at 15:00 Nifedipine (Procardia Xl) 30 mg DAILY PO Last administered on 03/29/17 08:13; Admin Dose 30 MG; Start 03/20/17 at 16:00 Hydralazine HCl (Apresoline) 20 mg Q8H PRN IV SBP over 170; Start 03/20/17 at 20:00 Lidocaine (Lidoderm) 1 patch DAILY TD Last administered on 03/29/17 08:12; Admin Dose 1 PATCH; Start 03/23/17 at 21:00 Nitroglycerin (Nitroglycerin (Sl Tab) 0.4 Mg) 1 tab Q5M PRN SL ANGINA; Start 03/25/17 at 20:30 Morphine Sulfate (morphine) 2 mg Q4H PRN IV pain; Start 03/25/17 at 22:30 Assessment/Plan Chief Complaint/Hosp Course SUBJECTIVE: Awake, looks comfortable, no fevers/n/v/d, at bedside INDWELLINGS: Right chest Perm-A-Cath. PHYSICAL EXAMINATION: GENERAL: Well-developed, fragile, elderly man who is no distress. HEENT: Head atraumatic, normocephalic. Sclerae anicteric. Buccal mucosa dry. NECK: Supple. CHEST: Rise symmetrical. Breath sounds diminished to bases. HEART: S1, S2. ABDOMEN: Soft. Bowel tones present. ASSESSMENT: 1. Status post septic shock/ pneumonia 2. Status post urinary tract infection. 3. End-stage renal disease, hemodialysis dependent. 4. History of kidney transplant. 5. Sick sinus syndrome, status post permanent pacemaker placed on 02/27/2017. 6. Acute on chronic resp failure PLAN: Remains stable off abx, continue present care, anti-aspiration measures, repeat cx's prn DW staff/pt/ Problems: MYLA CHIU NP Mar 29, 2017 14:08
[2017-03-29] MEDS: DOXAZOSIN 2 MG TAB PO SCH (21:18)
[2017-03-30] VITALS (26 sets, daily range): BP systolic 129–158; BP diastolic 70–83; PULSE 60–78; RESP 18–24
[2017-03-30] MEDS: ALBUTEROL/IPRATROPIUM (NEB) 3 ML AMP HHN PRN ×2 (02:12→21:09)
[2017-03-30] MEDS: LANSOPRAZOLE 30 MG CAP GTB SCH (06:00)
[2017-03-30] MEDS: oxyCODONE 5 MG TAB PO PRN (07:55)
--- NOTE | 2017-03-30 08:23 | PN ---
DATE: 03/30/2017 SUBJECTIVE: The patient was noted to be short of breath overnight. The patient was given nebulizer therapy with improvement. No other acute events noted. No hemoptysis, hematemesis or hematochezia . OBJECTIVE: VITAL SIGNS: Blood pressure is 135/71, respirations 22, pulse 81, temperature 98.6. HEENT: Head is normocephalic. NECK: Supple. HEART: Regular rate. LUNGS: Show diminished breath sounds at the base. ABDOMEN: Soft, nontender to palpation without rebound or guarding. EXTREMITIES: Negative for clubbing, cyanosis. No edema. DERMATOLOGIC: No rashes. MUSCULOSKELETAL: No joint effusions. NEUROLOGIC: No change in exam. MEDICATIONS: The patient's medications have been reviewed. LABORATORY DATA: Has been reviewed. No new labs this morning. ASSESSMENT AND PLAN: 1. Acute respiratory failure. Continue BiPAP. Will follow pulmonary. 2. Nonoliguric acute kidney injury on top of chronic ____ failure. Etiology secondary to acute tub ular necrosis. The patient is currently dialysis dependent. There is no evidence of recovery. Con tinue. 3. End-stage renal disease, status post renal transplant. The patient is currently in acute kidney injury as stated above. Continue current treatment plan. Continue current immunosuppressive regim en. 4. Anemia. Patient has iron deficiency, will give the patient an iron ____. 5. Arrhythmia, status post pacemaker. Continue to monitor. 6. Status post sepsis secondary to pneumonia. The patient has completed antibiotic course. Contin ue to monitor. 7. History of gout. 8. History of hepatitis. 9. Status post encephalopathy. 10. Hyperkalemia, resolved. Dictated By: PATRIA CHANEY/BECKIE Conf#: [id number] DID#: [id number]
[2017-03-30] MEDS: CYCLOSPORINE 25 MG CAP PO SCH ×2 (08:54→21:42)
[2017-03-30] MEDS: THIAMINE 100 MG TAB PO SCH (08:54)
[2017-03-30] MEDS: FLUTICASONE 0.05% 16 GM NAS SPRAY NASAL SCH ×2 (08:54→21:44)
[2017-03-30] MEDS: predniSONE 5 MG TAB PO SCH (08:55)
[2017-03-30] MEDS: APIXABAN 5 MG TABLET PO SCH ×2 (08:55→21:43)
[2017-03-30] MEDS: LIDOCAINE 5% 35 GM OINT TOP SCH ×2 (08:56→21:44)
[2017-03-30] MEDS: BALSAM PERU/CASTOR OIL 60 GM TUBE TOP SCH (08:56)
[2017-03-30] MEDS: LIDOCAINE 5% PATCH TD SCH (08:56)
[2017-03-30] MEDS: NIFEdipine (XL) 30 MG TAB PO SCH (09:00)
[2017-03-30] MEDS: SOD FERRIC GLUC COMPLX 125 MG in SOD CHLORIDE 0.9% 100 ML IVPB SCH (09:53)
[2017-03-30] MEDS: IPRATROPIUM (HFA) 12.9 GM INHALER INH PRN (13:30)
[2017-03-30] MEDS: ALBUTEROL 18 GM INHALER INH PRN (13:31)
--- NOTE | 2017-03-30 13:56 | CONS ---
Date/Time of Note Date/Time of Note DATE: 03/30/17 TIME: 13:56 Consult Date/Type/Reason Admit Date/Time Mar 01, 2017 at 13:35 Initial Consult Date 03/01/17 Type of Consultation: ID Objective Vital Signs Date Time Temp Pulse Resp B/P Pulse Ox O2 Delivery O2 Flow Rate FiO2 03/30/17 12:21 98.0 62 18 139/72 98 03/30/17 08:15 Nasal Cannula 5.0 03/30/17 05:23 30 Intake and Output 03/29/17 03/29/17 03/30/17 15:00 23:00 07:00 Intake Total 250 ml 500 ml Balance 250 ml 500 ml Results/Medications Result Diagram: 03/29/17 0604 03/29/17 0604 Medications Current Medications Acetaminophen (Tylenol Tab) 500 mg Q6H PRN PO PAIN AND OR ELEVATED TEMP Last administered on 03/26/17 03:09; Admin Dose 500 MG; Start 03/01/17 at 13:30 Lidocaine (Lidocaine 5% Oint) 1 applic BID TOP Last administered on 03/30/17 08:56; Admin Dose 1 APPLIC; Start 03/01/17 at 21:00 Oxycodone HCl (Roxicodone) 2.5 mg Q6H PRN PO PAIN Last administered on 07:55; Admin Dose 2.5 MG; Start 03/01/17 at 13:30 Prednisone (Prednisone) 5 mg DAILY PO Last administered on 03/30/17 08:55; Admin Dose 5 MG; Start 03/02/17 at 09:00 Eye Lubricant (Akwa Oint) 1 applic DAILY PRN RIGHT EYE ITCHING Last administered on 03/29/17 22:54; Admin Dose 1 APPLIC; Start 03/01/17 at 15:00 Bisacodyl (Dulcolax) 5 mg DAILY PRN PO CONSTIPATION Last administered on 15:48; Admin Dose 5 MG; Start 03/01/17 at 15:00 Cyclosporine (Sandimmune) 25 mg BID PO Last administered on 03/30/17 08:54; Admin Dose 25 MG; Start 03/01/17 at 21:00 Doxazosin Mesylate (Cardura) 2 mg QHS PO Last administered on 03/29/17 21:18; Admin Dose 2 MG; Start 03/01/17 at 21:00 Fluticasone Propionate (Flonase 0.05% Nasal) 1 spray BID NASAL Last administered on 03/30/17 08:54; Admin Dose 1 SPRAY; Start 03/01/17 at 21:00 Senna/Docusate Sodium (Senokot-S) 1 tab QHS PRN PO CONSTIPATION Last administered on 03/14/17 12:30; Admin Dose 1 TAB; Start 03/01/17 at 15:00 Thiamine HCl (Vitamin B1) 100 mg DAILY PO Last administered on 03/30/17 08:54 ; Admin Dose 100 MG; Start 03/02/17 at 09:00 Eye Lubricant (Artificial Tears Oph) 1 drop Q4H PRN BOTH EYES ITCHING EYES Last administered on 03/29/17 21:21; Admin Dose 1 DROP; Start 03/01/17 at 15:30 Apixaban (Eliquis) 2.5 mg BID PO Last administered on 03/30/17 08:55; Admin Dose 2.5 MG; Start 03/04/17 at 21:00 Lansoprazole (Prevacid) 30 mg DAILY@06 GTB Last administered on 03/28/17 05:25 ; Admin Dose 30 MG; Start 03/06/17 at 06:00 Miscellaneous Information (Pending [facility] Order For Wound Care) This patient moraes... PRN PRN XX WOUND CARE; Start 03/10/17 at 15:00 Nifedipine (Procardia Xl) 30 mg DAILY PO Last administered on 03/29/17 08:13; Admin Dose 30 MG; Start 03/20/17 at 16:00 Hydralazine HCl (Apresoline) 20 mg Q8H PRN IV SBP over 170; Start 03/20/17 at 20:00 Lidocaine (Lidoderm) 1 patch DAILY TD Last administered on 03/30/17 08:56; Admin Dose 1 PATCH; Start 03/23/17 at 21:00 Nitroglycerin (Nitroglycerin (Sl Tab) 0.4 Mg) 1 tab Q5M PRN SL ANGINA; Start 03/25/17 at 20:30 Morphine Sulfate 2 mg 2 mg Q4H PRN IV pain; Start 03/25/17 at 22:30 Ferric Sodium Gluconate Complex/ Sodium Chloride (Ferrlecit/NS) 110 ml @ 110 mls/hr Q24H IVPB Last administered on 03/30/17t 09:53; Admin Dose 110 MLS/HR; Start 03/30/17 at 10:00; Stop 04/03/17 at 10:59 Assessment/Plan Chief Complaint/Hosp Course SUBJECTIVE: Alert, feels good, no fevers, looks comfortable INDWELLINGS: Right chest Perm-A-Cath. PHYSICAL EXAMINATION: GENERAL: Well-developed, fragile, elderly man who is no distress. HEENT: Head atraumatic, normocephalic. Sclerae anicteric. Buccal mucosa dry. NECK: Supple. CHEST: Rise symmetrical. Breath sounds diminished to bases. HEART: S1, S2. ABDOMEN: Soft. Bowel tones present. ASSESSMENT: 1. Status post septic shock/ pneumonia 2. Status post urinary tract infection. 3. End-stage renal disease, hemodialysis dependent. 4. History of kidney transplant. 5. Sick sinus syndrome, status post permanent pacemaker placed on 02/27/2017. 6. Acute on chronic resp failure PLAN: Remains stable off abx, continue present care, anti-aspiration measures, repeat cx's prn DW patient Problems: MYLA CHIU NP Mar 30, 2017 13:56
[2017-03-30] MEDS: ARTIFICIAL TEARS 15 ML OPH BOTH EYES PRN (17:50)
--- NOTE | 2017-03-30 19:51 | CONS ---
Date/Time of Note Date/Time of Note DATE: 03/30/17 TIME: 19:50 Consult Date/Type/Reason Admit Date/Time Mar 01, 2017 at 13:35 Initial Consult Date 03/01/17 Type of Consultation: card Subjective CARDIOLOGY FOLLOW UP NOTE: S: Discussed with staff and rhythm strip is reviewed. Patient remains in demand ventricular pacemaker. he denies any cp or pressure to me now and states he is feeling better. no active bleeding is reported no palpitations O: General: thin man, ON BIPAP now HEENT: NC/AT. . NECK: . no stridor. CV: RRR. systolic murmur; no gallop or rubs. chest: s/p left sided PPM, no hematoma or bleeding PULM: no wheezing mild rhonchi. GI: SOFT, NT, ND, no rebound or guarding Extremity:mild LE edema. no clubbing. neuro: awake and alert. Psych: calm and pleasant rectal: deferred : normal male Objective Vital Signs Date Time Temp Pulse Resp B/P Pulse Ox O2 Delivery O2 Flow Rate FiO2 03/30/17 16:04 67 03/30/17 16:00 18 03/30/17 15:57 98.0 132/71 98 03/30/17 08:15 Nasal Cannula 5.0 03/30/17 05:23 30 Intake and Output 03/29/17 03/29/17 03/30/17 15:00 23:00 07:00 Intake Total 250 ml 500 ml Balance 250 ml 500 ml Results/Medications Result Diagram: 03/29/17 0604 03/29/17 0604 Medications Current Medications Acetaminophen (Tylenol Tab) 500 mg Q6H PRN PO PAIN AND OR ELEVATED TEMP Last administered on 03/26/17 03:09; Admin Dose 500 MG; Start 03/01/17 at 13:30 Lidocaine (Lidocaine 5% Oint) 1 applic BID TOP Last administered on 03/30/17 08:56; Admin Dose 1 APPLIC; Start 03/01/17 at 21:00 Oxycodone HCl (Roxicodone) 2.5 mg Q6H PRN PO PAIN Last administered on 07:55; Admin Dose 2.5 MG; Start 03/01/17 at 13:30 Prednisone (Prednisone) 5 mg DAILY PO Last administered on 03/30/17 08:55; Admin Dose 5 MG; Start 03/02/17 at 09:00 Eye Lubricant (Akwa Oint) 1 applic DAILY PRN RIGHT EYE ITCHING Last administered on 03/29/17 22:54; Admin Dose 1 APPLIC; Start 03/01/17 at 15:00 Bisacodyl (Dulcolax) 5 mg DAILY PRN PO CONSTIPATION Last administered on 15:48; Admin Dose 5 MG; Start 03/01/17 at 15:00 Cyclosporine (Sandimmune) 25 mg BID PO Last administered on 03/30/17 08:54; Admin Dose 25 MG; Start 03/01/17 at 21:00 Doxazosin Mesylate (Cardura) 2 mg QHS PO Last administered on 03/29/17 21:18; Admin Dose 2 MG; Start 03/01/17 at 21:00 Fluticasone Propionate (Flonase 0.05% Nasal) 1 spray BID NASAL Last administered on 03/30/17 08:54; Admin Dose 1 SPRAY; Start 03/01/17 at 21:00 Senna/Docusate Sodium (Senokot-S) 1 tab QHS PRN PO CONSTIPATION Last administered on 03/14/17 12:30; Admin Dose 1 TAB; Start 03/01/17 at 15:00 Thiamine HCl (Vitamin B1) 100 mg DAILY PO Last administered on 03/30/17 08:54 ; Admin Dose 100 MG; Start 03/02/17 at 09:00 Eye Lubricant (Artificial Tears Oph) 1 drop Q4H PRN BOTH EYES ITCHING EYES Last administered on 03/30/17 17:50; Admin Dose 1 DROP; Start 03/01/17 at 15:30 Apixaban (Eliquis) 2.5 mg BID PO Last administered on 03/30/17 08:55; Admin Dose 2.5 MG; Start 03/04/17 at 21:00 Lansoprazole (Prevacid) 30 mg DAILY@06 GTB Last administered on 03/28/17 05:25 ; Admin Dose 30 MG; Start 03/06/17 at 06:00 Miscellaneous Information ([facility] This patient moraes... PRN PRN XX WOUND CARE; Start 03/10/17 at 15:00 Nifedipine (Procardia Xl) 30 mg DAILY PO Last administered on 03/29/17 08:13; Admin Dose 30 MG; Start 03/20/17 at 16:00 Hydralazine HCl (Apresoline) 20 mg Q8H PRN IV SBP over 170; Start 03/20/17 at 20:00 Lidocaine (Lidoderm) 1 patch DAILY TD Last administered on 03/30/17 08:56; Admin Dose 1 PATCH; Start 03/23/17 at 21:00 Nitroglycerin (Nitroglycerin (Sl Tab) 0.4 Mg) 1 tab Q5M PRN SL ANGINA; Start 03/25/17 at 20:30 Morphine Sulfate 2 mg 2 mg Q4H PRN IV pain; Start 03/25/17 at 22:30 Ferric Sodium Gluconate Complex/ Sodium Chloride (Ferrlecit/NS) 110 ml @ 110 mls/hr Q24H IVPB Last administered on 03/30/17 09:53; Admin Dose 110 MLS/HR; Start 03/30/17 at 10:00; Stop 04/03/17 at 10:59 Assessment/Plan Chief Complaint/Hosp Course 1. Acute on-chronic hypoxemic, hypercapnic respiratory failure, status post intubation, now extubated 2. Sick sinus syndrome, status post permanent pacemaker. 3. Atrial fibrillation with a slow ventricular response, heart rate under control with the pacemaker. 4. s/p Septic shock: BP has improved now 5. Pneumonia. 6. Anemia. 7. History of hepatitis C. 8. History of renal transplant. 9. Renal failure, status post hemodialysis. 10. NSVT: 11. Atypical chest pain : has resolved now RECOMMENDATIONS: . cont med therapy for his cardiac disease. Antibiotic is being managed as per Infectious Disease recommendations. cont eliquis as long as no bleeding Antirejection medications as per Renal. Dialysis as per Renal. replace lytes prn cont resp care, O2 and BIPAP prn. f/u pulm rec cont HD to be adjusted per renal . pacermaker was interrogated 03/20/17 and personally reviewed. it shows normal function. will cont to monitor PT as tolerated. dc planning is in process. will f/u prn THANK YOU ROLAND DORSEY MD [facility] . Problems: ROLAND DORSEY MD Mar 30, 2017 19:51
[2017-03-30] MEDS: DOXAZOSIN 2 MG TAB PO SCH (21:43)
[2017-03-30] MEDS: EPOETIN 4000 UNITS/1 ML INJ (ESRD) SC SCH (22:37)
[2017-03-31] VITALS (22 sets, daily range): BP systolic 112–166; BP diastolic 56–85; PULSE 60–66; RESP 16–22
[2017-03-31] MEDS: LANSOPRAZOLE 30 MG CAP GTB SCH (05:44)
--- NOTE | 2017-03-31 08:09 | PN ---
DATE: 03/31/2017 SUBJECTIVE: The patient is stable. Had hemodialysis yesterday, tolerated well. The patient is pen ding discharge to senior living facility once a bed is available. No other events noted. OBJECTIVE: VITAL SIGNS: Blood pressure is 148/84, respiration 21, pulse 61, temperature 98.0. HEENT: Head is normocephalic. NECK: Supple. HEART: Regular rate. LUNGS: Show diminished breath sounds at the base. ABDOMEN: Soft, nontender to palpation. No rebound or guarding. EXTREMITIES: Negative for clubbing, cyanosis. Trace edema. DERMATOLOGIC: No rashes. MUSCULOSKELETAL: No joint effusions. NEUROLOGIC: No change in exam. MEDICATIONS: The patient's medications have been reviewed. LABORATORY DATA: Shows white count 3.8, hemoglobin 8.5, platelet count 71. Sodium 138, BUN 65, cre atinine 3.12. ASSESSMENT AND PLAN: 1. Acute respiratory failure. The patient is currently stable on BiPAP. Continue to monitor. Fol low up with pulmonary. 2. 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 Etiology of acute kidney i njury is secondary to acute tubular necrosis. The patient is currently dialysis dependent, no evide nce of renal recovery. Continue to monitor. 3. End-stage renal disease status post renal transplant. The patient is currently in acute kidney injury as stated above. Continue current treatment plan. 4. Anemia with evidence of iron deficiency. Continue iron with IV Ferrlecit. Continue Epog en. 5. Arrhythmia, status post pacemaker. Continue to monitor. 6. Status post sepsis secondary to pneumonia. 7. History of gout. 8. History of hepatitis. 9. Status post encephalopathy. DISPOSITION: The patient is pending possible transfer to the SNF. Dictated By: PATRIA CHANEY/BECKIE Conf#: [id number] DID#: [id number]
[2017-03-31] MEDS: IPRATROPIUM (HFA) 12.9 GM INHALER INH PRN ×2 (09:25→22:34)
[2017-03-31] MEDS: CYCLOSPORINE 25 MG CAP PO SCH ×2 (09:25→22:31)
[2017-03-31] MEDS: THIAMINE 100 MG TAB PO SCH (09:26)
[2017-03-31] MEDS: APIXABAN 5 MG TABLET PO SCH ×2 (09:26→22:31)
[2017-03-31] MEDS: predniSONE 5 MG TAB PO SCH (09:26)
[2017-03-31] MEDS: FLUTICASONE 0.05% 16 GM NAS SPRAY NASAL SCH ×3 (09:27→22:29)
[2017-03-31] MEDS: BALSAM PERU/CASTOR OIL 60 GM TUBE TOP SCH (09:27)
[2017-03-31] MEDS: LIDOCAINE 5% PATCH TD SCH (09:27)
[2017-03-31] MEDS: LIDOCAINE 5% 35 GM OINT TOP SCH ×3 (09:27→22:43)
[2017-03-31] MEDS: NIFEdipine (XL) 30 MG TAB PO SCH (09:28)
[2017-03-31] MEDS: ALBUTEROL 18 GM INHALER INH PRN ×2 (09:30→22:34)
[2017-03-31] MEDS: SOD FERRIC GLUC COMPLX 125 MG in SOD CHLORIDE 0.9% 100 ML IVPB SCH (11:14)
--- NOTE | 2017-03-31 15:47 | RADRPT ---
PROCEDURE: XR Chest. CLINICAL INDICATION: SOB TECHNIQUE: Single portable view of the chest was obtained COMPARISON: 03/25/2017. FINDINGS: Right internal jugular dialysis catheter overlies the proximal superior vena cava. Left-sided single chamber AICD overlies the right ventral. There is severe cardiomegaly with thoracic aortic atherosclerotic degenerative changes. Moderately l arge bilateral, right greater than left pleural effusions which are increased bilaterally. There is associated bibasilar compressive atelectasis. There is increased pulmonary edema. No evidence of pne umothorax. IMPRESSION: 1. Increased pulmonary edema. 2. Moderately large bilateral, right greater than left pleural effusions with interval increase. Th ere is associated bibasilar compressive atelectasis. 3. Moderately severe cardiomegaly. RPTAT: HRSR Physician [place] Date Time Electronically viewed and signed by Jackson Trammell Physician on 03/31/2017 15:46 RR/
--- NOTE | 2017-03-31 16:35 | CONS ---
Date/Time of Note Date/Time of Note DATE: 03/31/17 TIME: 16:21 Consultation Date/Type/Reason Admit Date/Time Mar 01, 2017 at 13:35 Initial Consult Date SUBJECTIVE: 66 y/o male being treated for ARF and Acute Resp. Failure. Had HD yesterday. Awake,Alert. Feels good, and denies fevers. VS: 155/85 P:60 R:21 T: 99.0 SO2: 98% LABS: WBC-3.8 H&H: stable. BUN-65 Cr-3.12. CXR: 1. Increased pulmonary edema. 2. Moderately large bilateral, right greater than left pleural effusions with interval increase. There is associated bibasilar compressive atelectasis. 3. Moderately severe cardiomegaly. INDWELLINGS: Right chest Perm-A-Cath. PHYSICAL EXAMINATION: GENERAL: Well-developed, fragile, elderly man who is no distress. HEENT: Head atraumatic, normocephalic. Sclerae anicteric. Buccal mucosa dry. NECK: Supple. CHEST: Rise symmetrical. Breath sounds diminished to bases. HEART: S1, S2. ABDOMEN: Soft. Bowel tones present. ASSESSMENT: 1. Status post septic shock 2. Status post urinary tract infection. 3. S/P PNA. 3. End-stage renal disease, hemodialysis dependent. 4. History of kidney transplant. 5. Sick sinus syndrome, status post permanent pacemaker placed on 02/27/2017. 6. Acute on chronic resp failure. On BIPAP PRN. Prednisone PO. Improving. PLAN: Remains stable.Currently off of abx. Continue present care, anti- aspiration measures, repeat cx's prn. Type of Consultation: ID Exam/Review of Systems Vital Signs Vitals Vital Signs Date Time Temp Pulse Resp B/P Pulse Ox O2 Delivery O2 Flow Rate FiO2 03/31/17 16:07 60 03/31/17 15:38 99.0 21 155/85 98 03/31/17 13:35 5.0 40 03/31/17 08:00 Nasal Cannula Intake and Output 03/30/17 03/30/17 03/31/17 15:00 23:00 07:00 Intake Total 1200 ml 650 ml Output Total 3500 ml Balance -2300 ml 650 ml Results Result Diagram: 03/31/17 0508 03/31/17 0508 Results 24 hrs Laboratory Tests Test 03/31/17 05:08 White Blood Count 3.8 L Red Blood Count 2.97 L Hemoglobin 8.5 L Hematocrit 27.6 L Mean Corpuscular Volume 92.9 Mean Corpuscular Hemoglobin 28.6 L Mean Corpuscular Hemoglobin Concent 30.8 L Red Cell Distribution Width 16.2 H Platelet Count 71 L Mean Platelet Volume 10.8 H Neutrophils % 62.2 Lymphocytes % 25.1 Monocytes % 10.4 Eosinophils % 1.8 Basophils % 0.0 Nucleated Red Blood Cells % 0.0 Neutrophils # 2.4 Lymphocytes # 1.0 Monocytes # 0.4 Eosinophils # 0.1 Basophils # 0.0 Nucleated Red Blood Cells # 0.0 Sodium Level 138 Potassium Level 4.4 Chloride Level 102 Carbon Dioxide Level 24 Anion Gap 16 Blood Urea Nitrogen 65 H Creatinine 3.12 H Glucose Level 67 L Calcium Level 8.3 L Phosphorus Level 4.9 Magnesium Level 2.1 Medications Medications Current Medications Acetaminophen (Tylenol Tab) 500 mg Q6H PRN PO PAIN AND OR ELEVATED TEMP Last administered on 03/26/17 03:09; Admin Dose 500 MG; Start 03/01/17 at 13:30 Lidocaine (Lidocaine 5% Oint) 1 applic BID TOP Last administered on 03/31/17 09:27; Admin Dose 1 APPLIC; Start 03/01/17 at 21:00 Oxycodone HCl (Roxicodone) 2.5 mg Q6H PRN PO PAIN Last administered on 07:55; Admin Dose 2.5 MG; Start 03/01/17 at 13:30 Prednisone (Prednisone) 5 mg DAILY PO Last administered on 03/31/17 09:26; Admin Dose 5 MG; Start 03/02/17 at 09:00 Eye Lubricant (Akwa Oint) 1 applic DAILY PRN RIGHT EYE ITCHING Last administered on 03/29/17 22:54; Admin Dose 1 APPLIC; Start 03/01/17 at 15:00 Bisacodyl (Dulcolax) 5 mg DAILY PRN PO CONSTIPATION Last administered on 15:48; Admin Dose 5 MG; Start 03/01/17 at 15:00 Cyclosporine (Sandimmune) 25 mg BID PO Last administered on 03/31/17 09:25; Admin Dose 25 MG; Start 03/01/17 at 21:00 Doxazosin Mesylate (Cardura) 2 mg QHS PO Last administered on 03/30/17 21:43; Admin Dose 2 MG; Start 03/01/17 at 21:00 Fluticasone Propionate (Flonase 0.05% Nasal) 1 spray BID NASAL Last administered on 03/31/17 09:27; Admin Dose 1 SPRAY; Start 03/01/17 at 21:00 Senna/Docusate Sodium (Senokot-S) 1 tab QHS PRN PO CONSTIPATION Last administered on 03/14/17 12:30; Admin Dose 1 TAB; Start 03/01/17 at 15:00 Thiamine HCl (Vitamin B1) 100 mg DAILY PO Last administered on 03/31/17 09:26 ; Admin Dose 100 MG; Start 03/02/17 at 09:00 Eye Lubricant (Artificial Tears Oph) 1 drop Q4H PRN BOTH EYES ITCHING EYES Last administered on 03/30/17 17:50; Admin Dose 1 DROP; Start 03/01/17 at 15:30 Apixaban (Eliquis) 2.5 mg BID PO Last administered on 03/31/17 09:26; Admin Dose 2.5 MG; Start 03/04/17 at 21:00 Lansoprazole (Prevacid) 30 mg DAILY@06 GTB Last administered on 03/31/17 05:44 ; Admin Dose 30 MG; Start 03/06/17 at 06:00 Miscellaneous Information (Pending [facility] Order For Wound Care) This patient moraes... PRN PRN XX WOUND CARE; Start 03/10/17 at 15:00 Nifedipine (Procardia Xl) 30 mg DAILY PO Last administered on 03/31/17 09:28; Admin Dose 30 MG; Start 03/20/17 at 16:00 Hydralazine HCl (Apresoline) 20 mg Q8H PRN IV SBP over 170; Start 03/20/17 at 20:00 Lidocaine (Lidoderm) 1 patch DAILY TD Last administered on 03/31/17 09:27; Admin Dose 1 PATCH; Start 03/23/17 at 21:00 Nitroglycerin (Nitroglycerin (Sl Tab) 0.4 Mg) 1 tab Q5M PRN SL ANGINA; Start 03/25/17 at 20:30 Morphine Sulfate 2 mg 2 mg Q4H PRN IV pain; Start 03/25/17 at 22:30 Ferric Sodium Gluconate Complex/ Sodium Chloride (Ferrlecit/NS) 110 ml @ 110 mls/hr Q24H IVPB Last administered on 03/31/17t 11:14; Admin Dose 110 MLS/HR; Start 03/30/17 at 10:00; Stop 04/03/17 at 10:59 KASSANDRA ALMANZA Mar 31, 2017 16:32
[2017-03-31] MEDS: oxyCODONE 5 MG TAB PO PRN (20:07)
[2017-03-31] MEDS: DOXAZOSIN 2 MG TAB PO SCH (22:30)
[2017-04-01] VITALS (18 sets, daily range): BP systolic 123–147; BP diastolic 67–81; PULSE 60–175; RESP 17–21
[2017-04-01] MEDS: EPOETIN 4000 UNITS/1 ML INJ (ESRD) SC SCH (00:15)
[2017-04-01] MEDS: oxyCODONE 5 MG TAB PO PRN (01:13)
[2017-04-01] MEDS: LANSOPRAZOLE 30 MG CAP GTB SCH (05:52)
[2017-04-01] MEDS: ARTIFICIAL TEARS 15 ML OPH BOTH EYES PRN (09:41)
[2017-04-01] MEDS: IPRATROPIUM (HFA) 12.9 GM INHALER INH PRN ×2 (09:41→22:12)
[2017-04-01] MEDS: FLUTICASONE 0.05% 16 GM NAS SPRAY NASAL SCH ×2 (09:41→21:00)
[2017-04-01] MEDS: ACETAMINOPHEN 500 MG TAB PO PRN (09:42)
[2017-04-01] MEDS: NIFEdipine (XL) 30 MG TAB PO SCH (09:42)
[2017-04-01] MEDS: predniSONE 5 MG TAB PO SCH (09:42)
[2017-04-01] MEDS: THIAMINE 100 MG TAB PO SCH (09:42)
[2017-04-01] MEDS: CYCLOSPORINE 25 MG CAP PO SCH ×2 (09:42→22:11)
[2017-04-01] MEDS: APIXABAN 5 MG TABLET PO SCH ×2 (09:43→22:11)
[2017-04-01] MEDS: LIDOCAINE 5% PATCH TD SCH (09:44)
[2017-04-01] MEDS: BALSAM PERU/CASTOR OIL 60 GM TUBE TOP SCH (09:44)
[2017-04-01] MEDS: SOD FERRIC GLUC COMPLX 125 MG in SOD CHLORIDE 0.9% 100 ML IVPB SCH (10:23)
[2017-04-01] MEDS: LIDOCAINE 5% 35 GM OINT TOP SCH (21:00)
[2017-04-01] MEDS: DOXAZOSIN 2 MG TAB PO SCH (22:10)
[2017-04-01] MEDS: ALBUTEROL 18 GM INHALER INH PRN (22:12)
[2017-04-02] VITALS (15 sets, daily range): BP systolic 120–141; BP diastolic 74–78; PULSE 60–67; RESP 18–60
[2017-04-02] MEDS: LANSOPRAZOLE 30 MG CAP GTB SCH (05:08)
--- NOTE | 2017-04-02 07:38 | PN ---
DATE: 04/01/2017 SUBJECTIVE: The patient had a run of V-tach overnight, but asymptomatic. The patient remains on Bi PAP, had hemodialysis yesterday, tolerated well. OBJECTIVE: VITAL SIGNS: Blood pressure 123/69, respirations 18, pulse 62, temperature 98.4. HEENT: Head is normocephalic. NECK: Supple. HEART: Regular rate. LUNGS: Show diminished breath sounds at the base. ABDOMEN: Soft, nontender to palpation. No rebound or guarding. EXTREMITIES: Negative for clubbing, cyanosis. No edema. DERMATOLOGIC: No rashes. MUSCULOSKELETAL: No joint effusions. NEUROLOGIC: No change in exam. MEDICATIONS: The patient's medications have been reviewed. LABORATORY DATA: Has been reviewed is currently pending. ASSESSMENT AND PLAN: 1. Acute respiratory failure. The patient remains on BiPAP, continue. Follow up with pulmonary. 2. 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 The patient is currently dialys is dependent. There is no evidence of recovery. Continue hemodialysis. 3. End-stage renal disease status post renal transplant. The patient is currently in acute kidney injury as stated above. Continue current treatment plan. 4. Anemia with evidence of iron deficiency. Continue IV Ferrlecit. Continue Epogen. 5. Acute congestive heart failure exacerbation, volume overload. Continue ultrafiltration with alexi lysis. 6. Arrhythmia. The patient had a run of V-tach. Continue current medical management. Follow up w [facility] cardiology. 7. Status post sepsis. 8. History of gout. 9. History of hepatitis. Dictated By: PATRIA CHANEY/BECKIE Conf#: [id number] DID#: [id number]
--- NOTE | 2017-04-02 07:38 | PN ---
DATE: 04/01/2017 SUBJECTIVE: The patient had a run of V-tach overnight, but asymptomatic. The patient remains on Bi PAP, had hemodialysis yesterday, tolerated well. OBJECTIVE: VITAL SIGNS: Blood pressure 123/69, respirations 18, pulse 62, temperature 98.4. HEENT: Head is normocephalic. NECK: Supple. HEART: Regular rate. LUNGS: Show diminished breath sounds at the base. ABDOMEN: Soft, nontender to palpation. No rebound or guarding. EXTREMITIES: Negative for clubbing, cyanosis. No edema. DERMATOLOGIC: No rashes. MUSCULOSKELETAL: No joint effusions. NEUROLOGIC: No change in exam. MEDICATIONS: The patient's medications have been reviewed. LABORATORY DATA: Has been reviewed is currently pending. ASSESSMENT AND PLAN: 1. Acute respiratory failure. The patient remains on BiPAP, continue. Follow up with pulmonary. 2. 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 The patient is currently dialys is dependent. There is no evidence of recovery. Continue hemodialysis. 3. End-stage renal disease status post renal transplant. The patient is currently in acute kidney injury as stated above. Continue current treatment plan. 4. Anemia with evidence of iron deficiency. Continue IV Ferrlecit. Continue Epogen. 5. Acute congestive heart failure exacerbation, volume overload. Continue ultrafiltration with alexi lysis. 6. Arrhythmia. The patient had a run of V-tach. Continue current medical management. Follow up w [facility] cardiology. 7. Status post sepsis. 8. History of gout. 9. History of hepatitis. Dictated By: APTRIA CHANEY/BECKIE Conf#: [id number] DID#: [id number]
--- NOTE | 2017-04-02 07:38 | PN ---
DATE: 04/01/2017 SUBJECTIVE: The patient had a run of V-tach overnight, but asymptomatic. The patient remains on Bi PAP, had hemodialysis yesterday, tolerated well. OBJECTIVE: VITAL SIGNS: Blood pressure 123/69, respirations 18, pulse 62, temperature 98.4. HEENT: Head is normocephalic. NECK: Supple. HEART: Regular rate. LUNGS: Show diminished breath sounds at the base. ABDOMEN: Soft, nontender to palpation. No rebound or guarding. EXTREMITIES: Negative for clubbing, cyanosis. No edema. DERMATOLOGIC: No rashes. MUSCULOSKELETAL: No joint effusions. NEUROLOGIC: No change in exam. MEDICATIONS: The patient's medications have been reviewed. LABORATORY DATA: Has been reviewed is currently pending. ASSESSMENT AND PLAN: 1. Acute respiratory failure. The patient remains on BiPAP, continue. Follow up with pulmonary. 2. 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 The patient is currently dialys is dependent. There is no evidence of recovery. Continue hemodialysis. 3. End-stage renal disease status post renal transplant. The patient is currently in acute kidney injury as stated above. Continue current treatment plan. 4. Anemia with evidence of iron deficiency. Continue IV Ferrlecit. Continue Epogen. 5. Acute congestive heart failure exacerbation, volume overload. Continue ultrafiltration with alexi lysis. 6. Arrhythmia. The patient had a run of V-tach. Continue current medical management. Follow up w [facility] cardiology. 7. Status post sepsis. 8. History of gout. 9. History of hepatitis. Dictated By: PATRIA CHANEY/BECKIE Conf#: [id number] DID#: [id number]
--- NOTE | 2017-04-02 08:26 | PN ---
DATE: 04/02/2017 SUBJECTIVE: The patient is stable. Scheduled for hemodialysis today. No other events noted. OBJECTIVE: VITAL SIGNS: Blood pressure 138/75, temperature 97.8, pulse 60, respirations 18. HEENT: Head is normocephalic. NECK: Supple. HEART: Regular rate. LUNGS: Show diminished breath sounds at the base. ABDOMEN: Soft, nontender to palpation. No rebound or guarding. EXTREMITIES: Negative for clubbing, cyanosis, no edema. DERMATOLOGIC: No rashes. MUSCULOSKELETAL: No joint effusions. NEUROLOGIC: No change in exam. MEDICATIONS: The patient's medications have been reviewed. LABORATORY DATA: Has been reviewed, shows sodium 138, BUN 81, creatinine 3.95. White count 3.8, he moglobin 8.9, hematocrit 28.9, platelet count is 73. ASSESSMENT AND PLAN: 1. 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 The patient is currently d ialysis dependent, no evidence of recovery. Continue. 2. History of end-stage renal disease status post renal transplant. Continue current treatment elvira n. Patient is currently in acute kidney injury as stated above. Continue current immunosuppressive regimen. 3. Anemia. The patient is on IV Ferrlecit and Epogen. Continue to monitor. 4. Acute congestive heart failure exacerbation, volume overload. Continue ultrafiltration with alexi lysis. 5. Chronic respiratory failure. Continue nightly BiPAP. 6. Arrhythmia. The patient is status post pacemaker. Follow up with cardiology. 7. Status post sepsis. 8. History of gout. 9. History of hepatitis. DISPOSITION: The patient is pending transfer to a group home facility once a bed in outpatient dialysis is arranged. Dictated By: PATRIA CHANEY/BECKIE Conf#: [id number] DID#: [id number]
[2017-04-02] MEDS: CYCLOSPORINE 25 MG CAP PO SCH ×2 (08:30→21:25)
[2017-04-02] MEDS: APIXABAN 5 MG TABLET PO SCH ×2 (08:30→21:25)
[2017-04-02] MEDS: NIFEdipine (XL) 30 MG TAB PO SCH (08:31)
[2017-04-02] MEDS: predniSONE 5 MG TAB PO SCH (08:31)
[2017-04-02] MEDS: THIAMINE 100 MG TAB PO SCH (08:31)
[2017-04-02] MEDS: FLUTICASONE 0.05% 16 GM NAS SPRAY NASAL SCH ×2 (08:32→23:08)
[2017-04-02] MEDS: LIDOCAINE 5% 35 GM OINT TOP SCH ×2 (08:32→21:00)
[2017-04-02] MEDS: BALSAM PERU/CASTOR OIL 60 GM TUBE TOP SCH (08:32)
[2017-04-02] MEDS: LIDOCAINE 5% PATCH TD SCH ×2 (09:00→21:30)
[2017-04-02] MEDS ORDERED: INFLUENZA VIRUS VACCINE 0.5 ML (DISPENSING) IM* ONE (09:00)
[2017-04-02] MEDS: SOD FERRIC GLUC COMPLX 125 MG in SOD CHLORIDE 0.9% 100 ML IVPB SCH (11:23)
--- NOTE | 2017-04-02 12:45 | CONS ---
Date/Time of Note Date/Time of Note DATE: 04/02/17 TIME: 12:44 Consult Date/Type/Reason Admit Date/Time Mar 01, 2017 at 13:35 Initial Consult Date 03/01/17 Type of Consultation: ID Objective Vital Signs Date Time Temp Pulse Resp B/P Pulse Ox O2 Delivery O2 Flow Rate FiO2 04/02/17 12:17 97.8 60 23 132/75 98 04/02/17 08:00 Nasal Cannula 5.0 04/02/17 05:46 30 Intake and Output 04/01/17 04/01/17 04/02/17 15:00 23:00 07:00 Intake Total 500 ml 880 ml 500 ml Balance 500 ml 880 ml 500 ml Results/Medications Result Diagram: 04/02/1711 04/02/17 0611 Results 24 hrs Laboratory Tests Test 04/02/17 06:11 White Blood Count 3.8 L Red Blood Count 3.10 L Hemoglobin 8.9 L Hematocrit 28.9 L Mean Corpuscular Volume 93.2 Mean Corpuscular Hemoglobin 28.7 L Mean Corpuscular Hemoglobin Concent 30.8 L Red Cell Distribution Width 16.4 H Platelet Count 73 L Mean Platelet Volume 10.2 Neutrophils % 52.8 Lymphocytes % 31.7 Monocytes % 12.0 H Eosinophils % 2.1 Basophils % 0.3 Nucleated Red Blood Cells % 0.0 Neutrophils # 2.0 Lymphocytes # 1.2 Monocytes # 0.5 Eosinophils # 0.1 Basophils # 0.0 Nucleated Red Blood Cells # 0.0 Sodium Level 138 Potassium Level 4.7 Chloride Level 101 Carbon Dioxide Level 24 Anion Gap 18 H Blood Urea Nitrogen 81 H Creatinine 3.95 H Glucose Level 80 Calcium Level 8.6 Phosphorus Level 5.2 H Magnesium Level 2.0 Medications Current Medications Acetaminophen (Tylenol Tab) 500 mg Q6H PRN PO PAIN AND OR ELEVATED TEMP Last administered on 04/01/17 09:42; Admin Dose 500 MG; Start 03/01/17 at 13:30 Lidocaine (Lidocaine 5% Oint) 1 applic BID TOP Last administered on 04/02/17 08:32; Admin Dose 1 APPLIC; Start 03/01/17 at 21:00 Oxycodone HCl (Roxicodone) 2.5 mg Q6H PRN PO PAIN Last administered on 01:13; Admin Dose 2.5 MG; Start 03/01/17 at 13:30 Prednisone (Prednisone) 5 mg DAILY PO Last administered on 04/02/17 08:31; Admin Dose 5 MG; Start 03/02/17 at 09:00 Eye Lubricant (Akwa Oint) 1 applic DAILY PRN RIGHT EYE ITCHING Last administered on 03/29/17 22:54; Admin Dose 1 APPLIC; Start 03/01/17 at 15:00 Bisacodyl (Dulcolax) 5 mg DAILY PRN PO CONSTIPATION Last administered on 15:48; Admin Dose 5 MG; Start 03/01/17 at 15:00 Cyclosporine (Sandimmune) 25 mg BID PO Last administered on 04/02/17 08:30; Admin Dose 25 MG; Start 03/01/17 at 21:00 Doxazosin Mesylate (Cardura) 2 mg QHS PO Last administered on 04/01/17 22:10; Admin Dose 2 MG; Start 03/01/17 at 21:00 Fluticasone Propionate (Flonase 0.05% Nasal) 1 spray BID NASAL Last administered on 04/02/17 08:32; Admin Dose 1 SPRAY; Start 03/01/17 at 21:00 Senna/Docusate Sodium (Senokot-S) 1 tab QHS PRN PO CONSTIPATION Last administered on 03/14/17 12:30; Admin Dose 1 TAB; Start 03/01/17 at 15:00 Thiamine HCl (Vitamin B1) 100 mg DAILY PO Last administered on 04/02/17 08:31 ; Admin Dose 100 MG; Start 03/02/17 at 09:00 Eye Lubricant (Artificial Tears Oph) 1 drop Q4H PRN BOTH EYES ITCHING EYES Last administered on 04/01/17 09:41; Admin Dose 1 DROP; Start 03/01/17 at 15:30 Apixaban (Eliquis) 2.5 mg BID PO Last administered on 04/02/17 08:30; Admin Dose 2.5 MG; Start 03/04/17 at 21:00 Lansoprazole (Prevacid) 30 mg DAILY@06 GTB Last administered on 03/31/17 05:44 ; Admin Dose 30 MG; Start 03/06/17 at 06:00 Miscellaneous Information (Pending Santyl Order For Wound Care) This patient moraes... PRN PRN XX WOUND CARE; Start 03/10/17 at 15:00 Nifedipine (Procardia Xl) 30 mg DAILY PO Last administered on 04/02/17 08:31; Admin Dose 30 MG; Start 03/20/17 at 16:00 Hydralazine HCl (Apresoline) 20 mg Q8H PRN IV SBP over 170; Start 03/20/17 at 20:00 Lidocaine (Lidoderm) 1 patch DAILY TD Last administered on 04/01/17 09:44; Admin Dose 1 PATCH; Start 03/23/17 at 21:00 Nitroglycerin (Nitroglycerin (Sl Tab) 0.4 Mg) 1 tab Q5M PRN SL ANGINA; Start 03/25/17 at 20:30 Morphine Sulfate 2 mg 2 mg Q4H PRN IV pain; Start 03/25/17 at 22:30 Ferric Sodium Gluconate Complex/ Sodium Chloride (Ferrlecit/NS) 110 ml @ 110 mls/hr Q24H IVPB Last administered on 04/02/17 11:23; Admin Dose 110 MLS/HR; Start 03/30/17 at 10:00; Stop 04/03/17 at 10:59 Assessment/Plan Chief Complaint/Hosp Course SUBJECTIVE: Alert, feels good, no fevers, looks comfortable INDWELLINGS: Right chest Perm-A-Cath. PHYSICAL EXAMINATION: GENERAL: Well-developed, fragile, elderly man who is no distress. HEENT: Head atraumatic, normocephalic. Sclerae anicteric. Buccal mucosa dry. NECK: Supple. CHEST: Rise symmetrical. Breath sounds diminished to bases. HEART: S1, S2. ABDOMEN: Soft. Bowel tones present. ASSESSMENT: 1. Status post septic shock/ pneumonia 2. Status post urinary tract infection. 3. End-stage renal disease, hemodialysis dependent. 4. History of kidney transplant. 5. Sick sinus syndrome, status post permanent pacemaker placed on 02/27/2017. 6. Acute on chronic resp failure PLAN: Stable off abx, continue present care, repeat cx's prn DW patient Problems: MYLA CHIU NP Apr 02, 2017 12:45
[2017-04-02] MEDS: IPRATROPIUM (HFA) 12.9 GM INHALER INH PRN ×2 (13:00→23:10)
[2017-04-02] MEDS: ALBUTEROL 18 GM INHALER INH PRN ×2 (13:01→23:09)
[2017-04-02] MEDS: ALBUTEROL/IPRATROPIUM (NEB) 3 ML AMP HHN PRN (14:02)
--- NOTE | 2017-04-02 15:04 | CONS ---
Date/Time of Note Date/Time of Note DATE: 04/02/17 TIME: 15:03 Consult Date/Type/Reason Admit Date/Time Mar 01, 2017 at 13:35 Initial Consult Date 03/01/17 Type of Consultation: card Subjective CARDIOLOGY FOLLOW UP NOTE: S: Discussed with staff and rhythm strip is reviewed. Patient remains in demand ventricular pacemaker. he denies any cp or pressure to me now and states he is feeling better. no active bleeding is reported no palpitations O: General: thin man, no acute distress HEENT: NC/AT. . NECK: . no stridor. CV: RRR. systolic murmur; no gallop or rubs. chest: s/p left sided PPM, no hematoma or bleeding PULM: no wheezing mild rhonchi. GI: SOFT, NT, ND, no rebound or guarding Extremity:mild LE edema. no clubbing. neuro: awake and alert. Psych: calm and pleasant rectal: deferred : normal male Objective Vital Signs Date Time Temp Pulse Resp B/P Pulse Ox O2 Delivery O2 Flow Rate FiO2 04/02/17 14:05 5.0 04/02/17 14:03 80 22 93 40 04/02/17 12:17 97.8 132/75 04/02/17 08:00 Nasal Cannula Intake and Output 04/01/17 04/01/17 04/02/17 15:00 23:00 07:00 Intake Total 500 ml 880 ml 500 ml Balance 500 ml 880 ml 500 ml Results/Medications Result Diagram: 04/02/17 0611 04/02/17 0611 Results 24 hrs Laboratory Tests Test 04/02/17 06:11 White Blood Count 3.8 L Red Blood Count 3.10 L Hemoglobin 8.9 L Hematocrit 28.9 L Mean Corpuscular Volume 93.2 Mean Corpuscular Hemoglobin 28.7 L Mean Corpuscular Hemoglobin Concent 30.8 L Red Cell Distribution Width 16.4 H Platelet Count 73 L Mean Platelet Volume 10.2 Neutrophils % 52.8 Lymphocytes % 31.7 Monocytes % 12.0 H Eosinophils % 2.1 Basophils % 0.3 Nucleated Red Blood Cells % 0.0 Neutrophils # 2.0 Lymphocytes # 1.2 Monocytes # 0.5 Eosinophils # 0.1 Basophils # 0.0 Nucleated Red Blood Cells # 0.0 Sodium Level 138 Potassium Level 4.7 Chloride Level 101 Carbon Dioxide Level 24 Anion Gap 18 H Blood Urea Nitrogen 81 H Creatinine 3.95 H Glucose Level 80 Calcium Level 8.6 Phosphorus Level 5.2 H Magnesium Level 2.0 Medications Current Medications Acetaminophen (Tylenol Tab) 500 mg Q6H PRN PO PAIN AND OR ELEVATED TEMP Last administered on 04/01/17 09:42; Admin Dose 500 MG; Start 03/01/17 at 13:30 Lidocaine (Lidocaine 5% Oint) 1 applic BID TOP Last administered on 04/02/17 08:32; Admin Dose 1 APPLIC; Start 03/01/17 at 21:00 Oxycodone HCl (Roxicodone) 2.5 mg Q6H PRN PO PAIN Last administered on 01:13; Admin Dose 2.5 MG; Start 03/01/17 at 13:30 Prednisone (Prednisone) 5 mg DAILY PO Last administered on 04/02/17 08:31; Admin Dose 5 MG; Start 03/02/17 at 09:00 Eye Lubricant (Akwa Oint) 1 applic DAILY PRN RIGHT EYE ITCHING Last administered on 03/29/17 22:54; Admin Dose 1 APPLIC; Start 03/01/17 at 15:00 Bisacodyl (Dulcolax) 5 mg DAILY PRN PO CONSTIPATION Last administered on 15:48; Admin Dose 5 MG; Start 03/01/17 at 15:00 Cyclosporine (Sandimmune) 25 mg BID PO Last administered on 04/02/17 08:30; Admin Dose 25 MG; Start 03/01/17 at 21:00 Doxazosin Mesylate (Cardura) 2 mg QHS PO Last administered on 04/01/17 22:10; Admin Dose 2 MG; Start 03/01/17 at 21:00 Fluticasone Propionate (Flonase 0.05% Nasal) 1 spray BID NASAL Last administered on 04/02/17 08:32; Admin Dose 1 SPRAY; Start 03/01/17 at 21:00 Senna/Docusate Sodium (Senokot-S) 1 tab QHS PRN PO CONSTIPATION Last administered on 03/14/17 12:30; Admin Dose 1 TAB; Start 03/01/17 at 15:00 Thiamine HCl (Vitamin B1) 100 mg DAILY PO Last administered on 04/02/17 08:31 ; Admin Dose 100 MG; Start 03/02/17 at 09:00 Eye Lubricant (Artificial Tears Oph) 1 drop Q4H PRN BOTH EYES ITCHING EYES Last administered on 04/01/17 09:41; Admin Dose 1 DROP; Start 03/01/17 at 15:30 Apixaban (Eliquis) 2.5 mg BID PO Last administered on 04/02/17 08:30; Admin Dose 2.5 MG; Start 03/04/17 at 21:00 Lansoprazole (Prevacid) 30 mg DAILY@06 GTB Last administered on 03/31/17 05:44 ; Admin Dose 30 MG; Start 03/06/17 at 06:00 Miscellaneous Information (Pending [facility] Order For Wound Care) This patient moraes... PRN PRN XX WOUND CARE; Start 03/10/17 at 15:00 Nifedipine (Procardia Xl) 30 mg DAILY PO Last administered on 04/02/17 08:31; Admin Dose 30 MG; Start 03/20/17 at 16:00 Hydralazine HCl (Apresoline) 20 mg Q8H PRN IV SBP over 170; Start 03/20/17 at 20:00 Lidocaine (Lidoderm) 1 patch DAILY TD Last administered on 04/01/17 09:44; Admin Dose 1 PATCH; Start 03/23/17 at 21:00 Nitroglycerin (Nitroglycerin (Sl Tab) 0.4 Mg) 1 tab Q5M PRN SL ANGINA; Start 03/25/17 at 20:30 Morphine Sulfate 2 mg 2 mg Q4H PRN IV pain; Start 03/25/17 at 22:30 Ferric Sodium Gluconate Complex/ Sodium Chloride (Ferrlecit/NS) 110 ml @ 110 mls/hr Q24H IVPB Last administered on 04/02/17 11:23; Admin Dose 110 MLS/HR; Start 03/30/17 at 10:00; Stop 04/03/17 at 10:59 Assessment/Plan Chief Complaint/Hosp Course 1. Acute on-chronic hypoxemic, hypercapnic respiratory failure, status post intubation, now extubated 2. Sick sinus syndrome, status post permanent pacemaker. 3. Atrial fibrillation with a slow ventricular response, heart rate under control with the pacemaker. 4. s/p Septic shock: BP has improved now 5. Pneumonia. 6. Anemia. 7. History of hepatitis C. 8. History of renal transplant. 9. Renal failure, status post hemodialysis. 10. NSVT: 11. Atypical chest pain : has resolved now RECOMMENDATIONS: . cont med therapy for his cardiac disease. Antibiotic is being managed as per Infectious Disease recommendations. cont eliquis as long as no bleeding Antirejection medications as per Renal. Dialysis as per Renal. replace lytes prn cont resp care, O2 and BIPAP prn. f/u pulm rec cont HD to be adjusted per renal . pacermaker was interrogated 03/20/17 and personally reviewed. it shows normal function. will cont to monitor PT as tolerated. dc planning is in process. will f/u prn THANK YOU ROLAND DOSREY MD [facility] . Problems: ROLAND DORSEY MD Apr 02, 2017 15:03
[2017-04-02] MEDS: DOXAZOSIN 2 MG TAB PO SCH (21:26)
[2017-04-03] VITALS (22 sets, daily range): BP systolic 115–154; BP diastolic 62–78; PULSE 60–77; RESP 17–20
[2017-04-03] MEDS: OCULAR LUBRICANT 3.5 GM OPH OINT RIGHT EYE PRN (00:01)
[2017-04-03] MEDS: LANSOPRAZOLE 30 MG CAP GTB SCH (05:54)
[2017-04-03] MEDS: ARTIFICIAL TEARS 15 ML OPH BOTH EYES PRN (06:01)
[2017-04-03] MEDS: IPRATROPIUM (HFA) 12.9 GM INHALER INH PRN ×4 (06:22→21:36)
[2017-04-03] MEDS: ALBUTEROL 18 GM INHALER INH PRN ×4 (06:23→21:37)
[2017-04-03] MEDS: LIDOCAINE 5% PATCH TD SCH (08:21)
[2017-04-03] MEDS: CYCLOSPORINE 25 MG CAP PO SCH ×2 (08:21→21:34)
[2017-04-03] MEDS: LIDOCAINE 5% 35 GM OINT TOP SCH ×2 (08:22→21:35)
[2017-04-03] MEDS: THIAMINE 100 MG TAB PO SCH (08:22)
[2017-04-03] MEDS: predniSONE 5 MG TAB PO SCH (08:22)
[2017-04-03] MEDS: BALSAM PERU/CASTOR OIL 60 GM TUBE TOP SCH (08:22)
[2017-04-03] MEDS: APIXABAN 5 MG TABLET PO SCH ×2 (08:22→21:35)
[2017-04-03] MEDS: FLUTICASONE 0.05% 16 GM NAS SPRAY NASAL SCH ×2 (08:22→21:00)
[2017-04-03] MEDS: NIFEdipine (XL) 30 MG TAB PO SCH (09:29)
--- NOTE | 2017-04-03 10:13 | CONS ---
Date/Time of Note Date/Time of Note DATE: 04/03/17 TIME: 10:12 Consult Date/Type/Reason Admit Date/Time Mar 01, 2017 at 13:35 Initial Consult Date 03/01/17 Type of Consultation: card Subjective CARDIOLOGY FOLLOW UP NOTE: S: Discussed with staff and rhythm strip is reviewed. Patient remains in demand ventricular pacemaker. he denies any cp or pressure to me now and states he is feeling better. he is awaiting to be transferred to [facility] no active bleeding is reported no palpitations S/P HD today O: General: thin man, no acute distress HEENT: NC/AT. . NECK: . no stridor. CV: RRR. systolic murmur; no gallop or rubs. chest: s/p left sided PPM, no hematoma or bleeding PULM: no wheezing mild rhonchi. GI: SOFT, NT, ND, no rebound or guarding Extremity:mild LE edema. no clubbing. neuro: awake and alert. Psych: calm and pleasant rectal: deferred : normal male Objective Vital Signs Date Time Temp Pulse Resp B/P Pulse Ox O2 Delivery O2 Flow Rate FiO2 04/03/17 08:00 60 04/03/17 07:40 98.1 19 136/73 95 04/03/17 06:00 Nasal Cannula 5.0 04/03/17 04:10 30 Intake and Output 04/02/17 04/02/17 04/03/17 15:00 23:00 07:00 Intake Total 480 ml 600 ml Balance 480 ml 600 ml Results/Medications Result Diagram: 04/02/17 0611 04/02/17 0611 Medications Current Medications Acetaminophen (Tylenol Tab) 500 mg Q6H PRN PO PAIN AND OR ELEVATED TEMP Last administered on 04/01/17 09:42; Admin Dose 500 MG; Start 03/01/17 at 13:30 Lidocaine (Lidocaine 5% Oint) 1 applic BID TOP Last administered on 04/03/17 08:22; Admin Dose 1 APPLIC; Start 03/01/17 at 21:00 Oxycodone HCl (Roxicodone) 2.5 mg Q6H PRN PO PAIN Last administered on 01:13; Admin Dose 2.5 MG; Start 03/01/17 at 13:30 Prednisone (Prednisone) 5 mg DAILY PO Last administered on 04/03/17 08:22; Admin Dose 5 MG; Start 03/02/17 at 09:00 Eye Lubricant (Akwa Oint) 1 applic DAILY PRN RIGHT EYE ITCHING Last administered on 04/03/17 00:01; Admin Dose 1 APPLIC; Start 03/01/17 at 15:00 Bisacodyl (Dulcolax) 5 mg DAILY PRN PO CONSTIPATION Last administered on 15:48; Admin Dose 5 MG; Start 03/01/17 at 15:00 Cyclosporine (Sandimmune) 25 mg BID PO Last administered on 04/03/17 08:21; Admin Dose 25 MG; Start 03/01/17 at 21:00 Doxazosin Mesylate (Cardura) 2 mg QHS PO Last administered on 04/02/17 21:26; Admin Dose 2 MG; Start 03/01/17 at 21:00 Fluticasone Propionate (Flonase 0.05% Nasal) 1 spray BID NASAL Last administered on 04/03/17 08:22; Admin Dose 1 SPRAY; Start 03/01/17 at 21:00 Senna/Docusate Sodium (Senokot-S) 1 tab QHS PRN PO CONSTIPATION Last administered on 03/14/17 12:30; Admin Dose 1 TAB; Start 03/01/17 at 15:00 Thiamine HCl (Vitamin B1) 100 mg DAILY PO Last administered on 04/03/17 08:22 ; Admin Dose 100 MG; Start 03/02/17 at 09:00 Eye Lubricant (Artificial Tears Oph) 1 drop Q4H PRN BOTH EYES ITCHING EYES Last administered on 04/03/17 06:01; Admin Dose 1 DROP; Start 03/01/17 at 15:30 Apixaban (Eliquis) 2.5 mg BID PO Last administered on 04/03/17 08:22; Admin Dose 2.5 MG; Start 03/04/17 at 21:00 Lansoprazole (Prevacid) 30 mg DAILY@06 GTB Last administered on 03/31/17 05:44 ; Admin Dose 30 MG; Start 03/06/17 at 06:00 [facility] This patient moraes... PRN PRN XX WOUND CARE; Start 03/10/17 at 15:00 Nifedipine (Procardia Xl) 30 mg DAILY PO Last administered on 04/03/17 09:29; Admin Dose 30 MG; Start 03/20/17 at 16:00 Hydralazine HCl (Apresoline) 20 mg Q8H PRN IV SBP over 170; Start 03/20/17 at 20:00 Lidocaine (Lidoderm) 1 patch DAILY TD Last administered on 04/03/17 08:21; Admin Dose 1 PATCH; Start 03/23/17 at 21:00 Nitroglycerin (Nitroglycerin (Sl Tab) 0.4 Mg) 1 tab Q5M PRN SL ANGINA; Start 03/25/17 at 20:30 Morphine Sulfate 2 mg 2 mg Q4H PRN IV pain; Start 03/25/17 at 22:30 Ferric Sodium Gluconate Complex/ Sodium Chloride (Ferrlecit/NS) 110 ml @ 110 mls/hr Q24H IVPB Last administered on 04/02/17 11:23; Admin Dose 110 MLS/HR; Start 03/30/17 at 10:00; Stop 04/03/17 at 10:59 Assessment/Plan Chief Complaint/Hosp Course 1. Acute on-chronic hypoxemic, hypercapnic respiratory failure, status post intubation, now extubated 2. Sick sinus syndrome, status post permanent pacemaker. 3. Atrial fibrillation with a slow ventricular response, heart rate under control with the pacemaker. 4. s/p Septic shock: BP has improved now 5. Pneumonia. 6. Anemia. 7. History of hepatitis C. 8. History of renal transplant. 9. Renal failure, status post hemodialysis. 10. NSVT: 11. Atypical chest pain : has resolved now RECOMMENDATIONS: . cont med therapy for his cardiac disease. Antibiotic is being managed as per Infectious Disease recommendations. cont eliquis as long as no bleeding Antirejection medications as per Renal. Dialysis as per Renal. replace lytes prn cont resp care, O2 and BIPAP prn. f/u pulm rec cont HD to be adjusted per renal . pacermaker was interrogated 03/20/17 and personally reviewed. it shows normal function. will cont to monitor PT as tolerated. dc planning is in process. THANK YOU ROLAND DORSEY MD [facility] . Problems: ROLAND DORSEY MD Apr 03, 2017 10:13
--- NOTE | 2017-04-03 10:47 | DS ---
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 The patient underwent cadaveric renal transplant in 1985. In 2017 patient had knee surgery that had co mplication with pneumonia eventually resulting in patient being in respiratory failure, underwent ca rdiac arrest. The patient was on hemodialysis at outpatient Hospital and was transferred to [facility] for continued respiratory care. While at [facility], the patient continued to have f urther respiratory failure, was eventually transferred to [facility], was intubate d due to sepsis and pneumonia. The patient had a prolonged stay at [facility], wa s eventually extubated and has been stable on BiPAP. In terms of the patient's sepsis, it was secon nj to pneumonia. The patient has completed a course of antibiotics and has been hemodynamically s table. The patient has been on dialysis despite for over 1 month without any renal recovery and cur rently remains dialysis dependent. The patient's other medical problems including mineral bone diso rder, encephalopathy, anemia have been stable during the hospital course. The patient currently at this time is being transferred to a residential facility in [place] where he will be on cont inued outpatient hemodialysis and continued respiratory care. At the time of transfer, the patient is stable, in no acute distress. FINAL DIAGNOSES: 1. Acute on chronic respiratory failure. 2. Sepsis, status post shock. 3. Pneumonia. 4. Nonoliguric acute kidney injury, chronic allograft failure, currently dialysis dependent. 5. History of endstage renal disease, status post renal transplant. 6. Acute congestive heart failure, volume overload. 7. History of gout. 8. History of hepatitis. 9. Acute encephalopathy, resolved. 10. Mineral bone disorder. 11. Anemia. Please note at the time of transfer, the patient is stable, in no acute distress. FINAL MEDICATIONS: See reconciliation list. Please note I spent over 40 minutes of time preparing the patient's discharge. Dictated By: PATRIA CHANEY/BECKIE Conf#: [id number] DID#: [id number]
--- NOTE | 2017-04-03 10:47 | DS ---
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 The patient underwent cadaveric renal transplant in 1985. In 2017 patient had knee surgery that had co mplication with pneumonia eventually resulting in patient being in respiratory failure, underwent ca rdiac arrest. The patient was on hemodialysis at outpatient Hospital and was transferred to [facility] for continued respiratory care. While at [facility], the patient continued to have f urther respiratory failure, was eventually transferred to [facility], was intubate d due to sepsis and pneumonia. The patient had a prolonged stay at [facility], wa s eventually extubated and has been stable on BiPAP. In terms of the patient's sepsis, it was secon nj to pneumonia. The patient has completed a course of antibiotics and has been hemodynamically s table. The patient has been on dialysis despite for over 1 month without any renal recovery and cur rently remains dialysis dependent. The patient's other medical problems including mineral bone diso rder, encephalopathy, anemia have been stable during the hospital course. The patient currently at this time is being transferred to a nursing home facility in [place] where he will be on cont inued outpatient hemodialysis and continued respiratory care. At the time of transfer, the patient is stable, in no acute distress. FINAL DIAGNOSES: 1. Acute on chronic respiratory failure. 2. Sepsis, status post shock. 3. Pneumonia. 4. Nonoliguric acute kidney injury, chronic allograft failure, currently dialysis dependent. 5. History of endstage renal disease, status post renal transplant. 6. Acute congestive heart failure, volume overload. 7. History of gout. 8. History of hepatitis. 9. Acute encephalopathy, resolved. 10. Mineral bone disorder. 11. Anemia. Please note at the time of transfer, the patient is stable, in no acute distress. FINAL MEDICATIONS: See reconciliation list. Please note I spent over 40 minutes of time preparing the patient's discharge. Dictated By: PATRIA CHANEY/BECKIE Conf#: [id number] DID#: [id number]
--- NOTE | 2017-04-03 10:47 | DS ---
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 The patient underwent cadaveric renal transplant in 1985. In 2017 patient had knee surgery that had co mplication with pneumonia eventually resulting in patient being in respiratory failure, underwent ca rdiac arrest. The patient was on hemodialysis at outpatient Hospital and was transferred to [facility] for continued respiratory care. While at [facility], the patient continued to have f urther respiratory failure, was eventually transferred to [facility], was intubate d due to sepsis and pneumonia. The patient had a prolonged stay at [facility], wa s eventually extubated and has been stable on BiPAP. In terms of the patient's sepsis, it was secon nj to pneumonia. The patient has completed a course of antibiotics and has been hemodynamically s table. The patient has been on dialysis despite for over 1 month without any renal recovery and cur rently remains dialysis dependent. The patient's other medical problems including mineral bone diso rder, encephalopathy, anemia have been stable during the hospital course. The patient currently at this time is being transferred to a longterm facility in [place] where he will be on cont inued outpatient hemodialysis and continued respiratory care. At the time of transfer, the patient is stable, in no acute distress. FINAL DIAGNOSES: 1. Acute on chronic respiratory failure. 2. Sepsis, status post shock. 3. Pneumonia. 4. Nonoliguric acute kidney injury, chronic allograft failure, currently dialysis dependent. 5. History of endstage renal disease, status post renal transplant. 6. Acute congestive heart failure, volume overload. 7. History of gout. 8. History of hepatitis. 9. Acute encephalopathy, resolved. 10. Mineral bone disorder. 11. Anemia. Please note at the time of transfer, the patient is stable, in no acute distress. FINAL MEDICATIONS: See reconciliation list. Please note I spent over 40 minutes of time preparing the patient's discharge. Dictated By: PATRIA CHANEY/BECKIE Conf#: [id number] DID#: [id number]
[2017-04-03] MEDS: SOD FERRIC GLUC COMPLX 125 MG in SOD CHLORIDE 0.9% 100 ML IVPB SCH (12:08)
[2017-04-03] MEDS: EPOETIN 4000 UNITS/1 ML INJ (ESRD) SC SCH (14:23)
[2017-04-03] MEDS: oxyCODONE 5 MG TAB PO PRN (18:13)
[2017-04-03] MEDS: DOXAZOSIN 2 MG TAB PO SCH (21:36)
[2017-04-04] VITALS (17 sets, daily range): BP systolic 120–146; BP diastolic 68–80; PULSE 60–68; RESP 18–21
[2017-04-04] MEDS: oxyCODONE 5 MG TAB PO PRN (00:40)
[2017-04-04] MEDS: OCULAR LUBRICANT 3.5 GM OPH OINT RIGHT EYE PRN (00:43)
[2017-04-04] MEDS: LANSOPRAZOLE 30 MG CAP GTB SCH (05:51)
[2017-04-04] MEDS: FLUTICASONE 0.05% 16 GM NAS SPRAY NASAL SCH (08:25)
[2017-04-04] MEDS: LIDOCAINE 5% 35 GM OINT TOP SCH (08:26)
[2017-04-04] MEDS: THIAMINE 100 MG TAB PO SCH (08:27)
[2017-04-04] MEDS: LIDOCAINE 5% PATCH TD SCH (08:28)
[2017-04-04] MEDS: predniSONE 5 MG TAB PO SCH (08:28)
[2017-04-04] MEDS: CYCLOSPORINE 25 MG CAP PO SCH (08:28)
[2017-04-04] MEDS: NIFEdipine (XL) 30 MG TAB PO SCH (08:29)
[2017-04-04] MEDS: IPRATROPIUM (HFA) 12.9 GM INHALER INH PRN (08:31)
[2017-04-04] MEDS: ALBUTEROL 18 GM INHALER INH PRN (08:31)
[2017-04-04] MEDS: APIXABAN 5 MG TABLET PO SCH (08:33)
--- NOTE | 2017-04-04 08:53 | PN ---
DATE: 04/04/2017 SUBJECTIVE: The patient is stable. No events overnight. No fevers, chills, nausea, vomiting. OBJECTIVE: VITAL SIGNS: Blood pressure 128/71, temperature 98.1, pulse 60. HEENT: Head is normocephalic. NECK: Supple. HEART: Regular rate. LUNGS: Show diminished breath sounds at the base. ABDOMEN: Soft, nontender to palpation. No rebound or guarding. EXTREMITIES: Negative for clubbing, cyanosis, no edema. DERMATOLOGIC: No rashes. MUSCULOSKELETAL: No joint effusions. NEUROLOGIC: No change in exam. MEDICATIONS: The patient's medications have been reviewed. LABORATORY DATA: Reviewed. ASSESSMENT AND PLAN: 1. 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 The patient is currently d ialysis dependent, no evidence of recovery, will continue. 2. History of end-stage renal disease status post renal transplant. Continue current treatment elvira n. The patient has current acute kidney injury as stated above. Continue immunosuppressive regimen . 3. Anemia. Continue Epogen and IV Ferrlecit. 4. Acute congestive heart failure exacerbation. Continue ultrafiltration with dialysis. 5. Chronic respiratory failure. Continue nightly BiPAP. 6. Arrhythmia, status post pacemaker. Follow up with cardiology. 7. History of gout. 8. History of hepatitis. Dictated By: PATRIA CHANEY/BECKIE Conf#: [id number] DID#: [id number]
--- NOTE | 2017-04-04 09:04 | CONS ---
Date/Time of Note Date/Time of Note DATE: 04/04/17 TIME: 09:03 Consult Date/Type/Reason Admit Date/Time Mar 01, 2017 at 13:35 Initial Consult Date 03/01/17 Type of Consultation: card Subjective CARDIOLOGY FOLLOW UP NOTE: S: Discussed with staff and rhythm strip is reviewed. Patient remains in demand ventricular pacemaker. he denies any cp or pressure to me now he is still coughing. he is awaiting to be transferred to [facility] no active bleeding is reported no palpitations S/P HD 04/03 O: General: thin man, no acute distress HEENT: NC/AT. . NECK: . no stridor. CV: RRR. systolic murmur; no gallop or rubs. chest: s/p left sided PPM, no hematoma or bleeding PULM: no wheezing mild rhonchi. GI: SOFT, NT, ND, no rebound or guarding Extremity:mild LE edema. no clubbing. neuro: awake and alert. Psych: calm and pleasant rectal: deferred : normal male Objective Vital Signs Date Time Temp Pulse Resp B/P Pulse Ox O2 Delivery O2 Flow Rate FiO2 04/04/17 08:10 60 04/04/17 07:24 98.1 18 128/71 96 04/04/17 04:55 30 04/04/17 01:00 Nasal Cannula 5.0 Intake and Output 04/03/17 04/03/17 04/04/17 15:00 23:00 07:00 Intake Total 400 ml 600 ml 500 ml Output Total 3000 ml 2500 ml Balance -2600 ml -1900 ml 500 ml Results/Medications Result Diagram: 04/02/17 0611 04/02/17 0611 Medications Current Medications Acetaminophen (Tylenol Tab) 500 mg Q6H PRN PO PAIN AND OR ELEVATED TEMP Last administered on 04/01/17 09:42; Admin Dose 500 MG; Start 03/01/17 at 13:30 Lidocaine (Lidocaine 5% Oint) 1 applic BID TOP Last administered on 04/04/17 08:26; Admin Dose 1 APPLIC; Start 03/01/17 at 21:00 Oxycodone HCl (Roxicodone) 2.5 mg Q6H PRN PO PAIN Last administered on 00:40; Admin Dose 2.5 MG; Start 03/01/17 at 13:30 Prednisone (Prednisone) 5 mg DAILY PO Last administered on 04/04/17 08:28; Admin Dose 5 MG; Start 03/02/17 at 09:00 Eye Lubricant (Akwa Oint) 1 applic DAILY PRN RIGHT EYE ITCHING Last administered on 04/04/17 00:43; Admin Dose 1 APPLIC; Start 03/01/17 at 15:00 Bisacodyl (Dulcolax) 5 mg DAILY PRN PO CONSTIPATION Last administered on 15:48; Admin Dose 5 MG; Start 03/01/17 at 15:00 Cyclosporine (Sandimmune) 25 mg BID PO Last administered on 04/04/17 08:28; Admin Dose 25 MG; Start 03/01/17 at 21:00 Doxazosin Mesylate (Cardura) 2 mg QHS PO Last administered on 04/03/17 21:36; Admin Dose 2 MG; Start 03/01/17 at 21:00 Fluticasone Propionate (Flonase 0.05% Nasal) 1 spray BID NASAL Last administered on 04/04/17 08:25; Admin Dose 1 SPRAY; Start 03/01/17 at 21:00 Senna/Docusate Sodium (Senokot-S) 1 tab QHS PRN PO CONSTIPATION Last administered on 03/14/17 12:30; Admin Dose 1 TAB; Start 03/01/17 at 15:00 Thiamine HCl (Vitamin B1) 100 mg DAILY PO Last administered on 04/04/17 08:27 ; Admin Dose 100 MG; Start 03/02/17 at 09:00 Eye Lubricant (Artificial Tears Oph) 1 drop Q4H PRN BOTH EYES ITCHING EYES Last administered on 04/03/17 06:01; Admin Dose 1 DROP; Start 03/01/17 at 15:30 Apixaban (Eliquis) 2.5 mg BID PO Last administered on 04/04/17 08:33; Admin Dose 2.5 MG; Start 03/04/17 at 21:00 Lansoprazole (Prevacid) 30 mg DAILY@06 GTB Last administered on 03/31/17 05:44 ; Admin Dose 30 MG; Start 03/06/17 at 06:00 Miscellaneous Information (Pending [facility] Order For Wound Care) This patient moraes... PRN PRN XX WOUND CARE; Start 03/10/17 at 15:00 Nifedipine (Procardia Xl) 30 mg DAILY PO Last administered on 04/04/17 08:29; Admin Dose 30 MG; Start 03/20/17 at 16:00 Hydralazine HCl (Apresoline) 20 mg Q8H PRN IV SBP over 170; Start 03/20/17 at 20:00 Lidocaine (Lidoderm) 1 patch DAILY TD Last administered on 04/04/17 08:28; Admin Dose 1 PATCH; Start 03/23/17 at 21:00 Nitroglycerin (Nitroglycerin (Sl Tab) 0.4 Mg) 1 tab Q5M PRN SL ANGINA; Start 03/25/17 at 20:30 Morphine Sulfate (morphine) 2 mg Q4H PRN IV pain; Start 03/25/17 at 22:30 Assessment/Plan Chief Complaint/Hosp Course 1. Acute on-chronic hypoxemic, hypercapnic respiratory failure, status post intubation, now extubated 2. Sick sinus syndrome, status post permanent pacemaker. 3. Atrial fibrillation with a slow ventricular response, heart rate under control with the pacemaker. 4. s/p Septic shock: BP has improved now 5. Pneumonia. 6. Anemia. 7. History of hepatitis C. 8. History of renal transplant. 9. Renal failure, status post hemodialysis. 10. NSVT: 11. Atypical chest pain : has resolved now RECOMMENDATIONS: . cont med therapy for his cardiac disease. Antibiotic is being managed as per Infectious Disease recommendations. cont eliquis as long as no bleeding Antirejection medications as per Renal. Dialysis as per Renal. replace lytes prn cont resp care, O2 and BIPAP prn. f/u pulm rec cont HD to be adjusted per renal . pacermaker was interrogated 03/20/17 and personally reviewed. it shows normal function. will cont to monitor PT as tolerated. dc planning is in process. THANK YOU ROLAND DORSEY MD [facility] . Problems: ROLAND DORSEY MD Apr 04, 2017 09:04
== END 2017-04-04 19:55 | DRG 870 ==
LOC: ICU 13:35 → TEL 03-15 23:49 → UNDODISIN 04-04 19:55
PROVIDERS: ADMIT Internal Medicine; ATTEND Internal Medicine
PROC: 5A1955Z Respiratory Ventilation, Greater than 96 Consecutive Hours (ICD-10-PCS; principal; 2017-03-01)
PROC: 5A1D70Z Performance of Urinary Filtration, Intermittent, Less than 6 Hours Per Day (ICD-10-PCS; 2017-03-01)
DX: A41.9 Sepsis, unspecified organism (principal); J96.21 Acute and chronic respiratory failure with hypoxia; N17.0 Acute kidney failure with tubular necrosis; R65.21 Severe sepsis with septic shock; G92 Toxic encephalopathy; I47.2 Ventricular tachycardia; J18.9 Pneumonia, unspecified organism; I13.2 Hypertensive heart and chronic kidney disease with heart failure and with stage 5 chronic kidney disease, or end stage renal disease; N18.6 End stage renal disease; J96.22 Acute and chronic respiratory failure with hypercapnia; I48.92 Unspecified atrial flutter; Z94.0 Kidney transplant status; B37.49 Other urogenital candidiasis; D69.6 Thrombocytopenia, unspecified; I48.91 Unspecified atrial fibrillation; E87.5 Hyperkalemia; Z99.2 Dependence on renal dialysis; Z95.0 Presence of cardiac pacemaker; I50.9 Heart failure, unspecified; D64.9 Anemia, unspecified; M89.8X9 Other specified disorders of bone, unspecified site; E83.89 Other disorders of mineral metabolism; Z22.39 Carrier of other specified bacterial diseases; Z16.21 Resistance to vancomycin; Z79.899 Other long term (current) drug therapy; Z86.74 Personal history of sudden cardiac arrest; I25.10 Atherosclerotic heart disease of native coronary artery without angina pectoris; R07.89 Other chest pain
CPT/HCPCS: 31500; 36600; 71010; 71250; 80048; 80053; 80076; 80158; 80202; 81001; 81003; 82043; 82270; 82550; 82553; 82728; 82803; 82962; 83540; 83605; 83735; 84100; 84155; 84300; 84484; 85025; 86704; 86709; 86803; 87040; 87081; 87340; 90686; 90935; 92526; 92610; 93005; 94002; 94003; 94640; 94660; 94664; 94770; 97003; 97110; 97161; 97167; 97530; C9113; J0692; J1450; J1644; J1720; J2185; J2916; J3370; J7050; J7060; J7512; P9047; Q4081